=== PATIENT | male | born 1985 | race Hispanic/Latino ===

== ENCOUNTER 2021-07-03 14:23 | Emergency (ER) | payer OTHER ==
--- OUTSIDE RECORDS SUMMARY | 2021-07-03 14:27 | XMS REPORT | Continuity of Care Document ---
:1985 Author Organization [facility] t Address [address] [place] [address] Care Team Providers Name Role Phone Unavailable Unavailable Unavailable Payers Payer Name Policy Type Policy Number Effective Date Expiration Date S ource Problems This patient has no known problems. Allergies, Adverse Reactions, Alerts Allergy Allergy Status Severity Reaction(s) Onset Inactive Treating Comm ents Source Name Type Date Date Clinician No Known DA Active U 2016-07 [facility] Allergie 07-28 Clear s 00:00: Andre 00 [facility] Medications This patient has no known medications. Procedures This patient has no known procedures. Results Test Description Test Time Test Comments Results Result Comments Source SURGICAL SPECIMENS 2018-09-19 07:40:00 RUN DATE: 09/19/18 [place] [facility] *LIVE* PAGE 1 RUN TIME: 740 Specimen Inquiry RUN USER: INTERFACE PATIENT: VERÓNICA [facility]UNN [facility]: [id number] AGE/SX: 32/M ROOM: [facility] RE09/15/18REG DR: Keith Swann MD : 83 BED: 1 DIS: 09/16/18 STATUS: DIS IN TLOC: SPEC #: [id number] RECD: 09/15/18 STATUS: SOUAraceli REQ #: [id number] DONA: 09/15/[address] [facility] [address]: Keith Swann MD ENTERED: 09/18/18 SP TYPE: SURG SPEC OTHR DR: No Primary or Family Physician Self Referred Gale Dowling MDORDERED: LEVEL 4 CODES: [id number] - ESOPHAGUS, NOS COPIES TO: No Primary or Family Physician Self Referred Keith Swann MD [address] [place] [address] Gale Dowling MD [address] [place] [address] PROCEDURES: GM LEVEL 4 (Incomplete) TISSUES: 1. ESOPHAGUS, NOS - Esophagus, bx. FINAL DIAGNOSIS Esophagus, bx.: Eosinophilic esophagitis. GROSS AND MICROSCOPIC GROSS EXAMINATION: Received in formalin labeled esophagus biopsy are 2 james tissue fragments measuring up to 0.4 cm submitted in one cassette. MICROSCOPIC EXAMINATION: Sections of the esophagus biopsy reveal reactive squamous epithelium with elongation of the vascular papillae, thickened basal layer and acanthosis. There are abundant eosinophils present with up to 80 per high-power field identified. No fungal organisms identified with GMS staining. No intestinal metaplasia identified without seen blue-PAS staining. (When special stains have been reviewed, the appropriate positive/negative controls have been reviewed and are appropriately positive/negative). CONTINUED ON NEXT PAGE RUN DATE: 09/19/18 [facility] *LIVE* PAGE 2 RUN TIME: 740 Specimen Inquiry RUN USER: INTERFACE SPEC #: [id number] PATIENT: VERÓNICA NUNN #[id number] (Continued)--------- --- POST-OP DIAGNOSIS Esophagitis, supertial tear in the esophagus, R/O Flor, esosinophilic es PRE-OP DIAGNOSIS Hematemesis--------- --- Signed SIGNATURE ON FILE Joce Barbosa 09/19/18 0740 END OF REPORT BASIC METABOLIC PANEL 2018-09-16 08:40:00 Test Item Value Reference Range Interpretation Comme nts SODIUM (test code = NA) 141 mEq/L 134-147 N POTASSIUM (test code = K) 4.0 mEq/L 3.4-5.0 N CHLORIDE (test code = CL) 111 mEq/L 100-108 H CARBON DIOXIDE (test code = CO2) 24 mEq/L 21-33 N ANION GAP (test code = GAP) 10 0-20 N GLUCOSE (test code = GLU) 80 mg/dL 70-110 N BLOOD UREA NITROGEN (test code = 6 mg/dL 7-18 L BUN) GLOMERULAR FILTRATION RATE (test 129.9 105-110 H Units of measure = ml/min/1.73 code = GFR) m2 CREATININE (test code = CREAT) 0.7 mg/dL 0.6-1.3 N CALCIUM (test code = CA) 9.1 mg/dL 8.0-10.5 N CBC W/AUTO [id number] 08:20:00 Test Item Value Reference Range Interpretation Comments WHITE BLOOD CELL (test code = 4.89 x10 3/uL 4.5-11.0 N WBC) RED BLOOD CELL (test code = 4.49 x10 6/uL 4.00-5.60 N RBC) HEMOGLOBIN (test code = HGB) 13.9 g/dL 12.5-16.9 N HEMATOCRIT (test code = HCT) 41.6 % 37.5-50.7 N MEAN CELL VOLUME (test code = 92.7 fL 81.0-99.0 N MCV) MEAN CELL HGB (test code = MCH) 31.0 pg 27.0-33.0 N MEAN CELL HGB CONCETRATION 33.4 g/dL 33.0-37.0 N (test code = MCHC) RED CELL DISTRIBUTION WIDTH CV 12.2 % 11.5-14.5 N (test code = RDW) RED CELL DISTRIBUTION WIDTH SD 42.2 fL 37.0-54.0 N (test code = RDW-SD) PLATELET COUNT (test code = 276 x10 3/uL 150-400 N PLT) MEAN PLATELET VOLUME (test code 10.0 fL 7.0-9.0 H = MPV) NEUTROPHIL % (test code = NT%) 55.6 % 56.0-77.0 L IMMATURE GRANULOCYTE % (test 0.2 % 0.0-2.0 N code = IG%) LYMPHOCYTE % (test code = LY%) 28.2 % 14.0-32.0 N MONOCYTE % (test code = MO%) 7.4 % 4.8-9.0 N EOSINOPHIL % (test code = EO%) 8.0 % 0.3-3.7 H BASOPHIL % (test code = BA%) 0.6 % 0.0-2.0 N NUCLEATED RBC % (test code = 0.0 % 0-0 N NRBC%) NEUTROPHIL # (test code = NT#) 2.72 x10 3/uL 2.0-7.6 N IMMATURE GRANULOCYTE # (test 0.01 x10 3/uL 0.00-0.03 N code = IG#) LYMPHOCYTE # (test code = LY#) 1.38 x10 3/uL 1.0-3.8 N MONOCYTE # (test code = MO#) 0.36 x10 3/uL 0.1-0.8 N EOSINOPHIL # (test code = EO#) 0.39 x10 3/uL 0.0-0.2 H BASOPHIL # (test code = BA#) 0.03 x10 3/uL 0.0-0.2 N NUCLEATED RBC # (test code = 0.00 x10 3/uL 0.0-0.1 N NRBC#) MANUAL DIFF REQUIRED (test code NO = MDIFF) CBC W/AUTO [id number] 22:25:00 Test Item Value Reference Range Interpretation Comments WHITE BLOOD CELL (test code = 6.48 x10 3/uL 4.5-11.0 N WBC) RED BLOOD CELL (test code = 4.09 x10 6/uL 4.00-5.60 N RBC) HEMOGLOBIN (test code = HGB) 12.5 g/dL 12.5-16.9 N HEMATOCRIT (test code = HCT) 37.5 % 37.5-50.7 N MEAN CELL VOLUME (test code = 91.7 fL 81.0-99.0 N MCV) MEAN CELL HGB (test code = MCH) 30.6 pg 27.0-33.0 N MEAN CELL HGB CONCETRATION 33.3 g/dL 33.0-37.0 N (test code = MCHC) RED CELL DISTRIBUTION WIDTH CV 12.3 % 11.5-14.5 N (test code = RDW) RED CELL DISTRIBUTION WIDTH SD 41.4 fL 37.0-54.0 N (test code = RDW-SD) PLATELET COUNT (test code = 257 x10 3/uL 150-400 N PLT) MEAN PLATELET VOLUME (test code 9.5 fL 7.0-9.0 H = MPV) NEUTROPHIL % (test code = NT%) 55.8 % 56.0-77.0 L IMMATURE GRANULOCYTE % (test 0.2 % 0.0-2.0 N code = IG%) LYMPHOCYTE % (test code = LY%) 29.5 % 14.0-32.0 N MONOCYTE % (test code = MO%) 8.0 % 4.8-9.0 N EOSINOPHIL % (test code = EO%) 6.0 % 0.3-3.7 H BASOPHIL % (test code = BA%) 0.5 % 0.0-2.0 N NUCLEATED RBC % (test code = 0.0 % 0-0 N NRBC%) NEUTROPHIL # (test code = NT#) 3.62 x10 3/uL 2.0-7.6 N IMMATURE GRANULOCYTE # (test 0.01 x10 3/uL 0.00-0.03 N code = IG#) LYMPHOCYTE # (test code = LY#) 1.91 x10 3/uL 1.0-3.8 N MONOCYTE # (test code = MO#) 0.52 x10 3/uL 0.1-0.8 N EOSINOPHIL # (test code = EO#) 0.39 x10 3/uL 0.0-0.2 H BASOPHIL # (test code = BA#) 0.03 x10 3/uL 0.0-0.2 N NUCLEATED RBC # (test code = 0.00 x10 3/uL 0.0-0.1 N NRBC#) MANUAL DIFF REQUIRED (test code NO = MDIFF) CBC W/AUTO [id number] 12:50:00 Test Item Value Reference Range Interpretation Comments WHITE BLOOD CELL (test code = 8.81 x10 3/uL 4.5-11.0 N WBC) RED BLOOD CELL (test code = 4.17 x10 6/uL 4.00-5.60 N RBC) HEMOGLOBIN (test code = HGB) 13.0 g/dL 12.5-16.9 N HEMATOCRIT (test code = HCT) 38.9 % 37.5-50.7 N MEAN CELL VOLUME (test code = 93.3 fL 81.0-99.0 N MCV) MEAN CELL HGB (test code = MCH) 31.2 pg 27.0-33.0 N MEAN CELL HGB CONCETRATION 33.4 g/dL 33.0-37.0 N (test code = MCHC) RED CELL DISTRIBUTION WIDTH CV 12.5 % 11.5-14.5 N (test code = RDW) RED CELL DISTRIBUTION WIDTH SD 42.9 fL 37.0-54.0 N (test code = RDW-SD) PLATELET COUNT (test code = 250 x10 3/uL 150-400 N PLT) MEAN PLATELET VOLUME (test code 9.5 fL 7.0-9.0 H = MPV) NEUTROPHIL % (test code = NT%) 68.1 % 56.0-77.0 N IMMATURE GRANULOCYTE % (test 0.2 % 0.0-2.0 N code = IG%) LYMPHOCYTE % (test code = LY%) 20.3 % 14.0-32.0 N MONOCYTE % (test code = MO%) 7.5 % 4.8-9.0 N EOSINOPHIL % (test code = EO%) 3.6 % 0.3-3.7 N BASOPHIL % (test code = BA%) 0.3 % 0.0-2.0 N NUCLEATED RBC % (test code = 0.0 % 0-0 N NRBC%) NEUTROPHIL # (test code = NT#) 5.99 x10 3/uL 2.0-7.6 N IMMATURE GRANULOCYTE # (test 0.02 x10 3/uL 0.00-0.03 N code = IG#) LYMPHOCYTE # (test code = LY#) 1.79 x10 3/uL 1.0-3.8 N MONOCYTE # (test code = MO#) 0.66 x10 3/uL 0.1-0.8 N EOSINOPHIL # (test code = EO#) 0.32 x10 3/uL 0.0-0.2 H BASOPHIL # (test code = BA#) 0.03 x10 3/uL 0.0-0.2 N NUCLEATED RBC # (test code = 0.00 x10 3/uL 0.0-0.1 N NRBC#) MANUAL DIFF REQUIRED (test code NO = MDIFF) CBC W/AUTO [id number] 07:24:00 Test Item Value Reference Range Interpretation Comments WHITE BLOOD CELL (test code = 11.95 x10 3/uL 4.5-11.0 H WBC) RED BLOOD CELL (test code = 4.78 x10 6/uL 4.00-5.60 N RBC) HEMOGLOBIN (test code = HGB) 14.5 g/dL 12.5-16.9 N HEMATOCRIT (test code = HCT) 44.5 % 37.5-50.7 N MEAN CELL VOLUME (test code = 93.1 fL 81.0-99.0 N MCV) MEAN CELL HGB (test code = 30.3 pg 27.0-33.0 N MCH) MEAN CELL HGB CONCETRATION 32.6 g/dL 33.0-37.0 L (test code = MCHC) RED CELL DISTRIBUTION WIDTH CV 12.3 % 11.5-14.5 N (test code = RDW) RED CELL DISTRIBUTION WIDTH SD 42.7 fL 37.0-54.0 N (test code = RDW-SD) PLATELET COUNT (test code = 299 x10 3/uL 150-400 N PLT) MEAN PLATELET VOLUME (test 10.2 fL 7.0-9.0 H code = MPV) NEUTROPHIL % (test code = NT%) 81.8 % 56.0-77.0 H IMMATURE GRANULOCYTE % (test 0.3 % 0.0-2.0 N code = IG%) LYMPHOCYTE % (test code = LY%) 9.8 % 14.0-32.0 L MONOCYTE % (test code = MO%) 6.4 % 4.8-9.0 N EOSINOPHIL % (test code = EO%) 1.4 % 0.3-3.7 N BASOPHIL % (test code = BA%) 0.3 % 0.0-2.0 N NUCLEATED RBC % (test code = 0.0 % 0-0 N NRBC%) NEUTROPHIL # (test code = NT#) 9.76 x10 3/uL 2.0-7.6 H IMMATURE GRANULOCYTE # (test 0.04 x10 3/uL 0.00-0.03 H code = IG#) LYMPHOCYTE # (test code = LY#) 1.17 x10 3/uL 1.0-3.8 N MONOCYTE # (test code = MO#) 0.77 x10 3/uL 0.1-0.8 N EOSINOPHIL # (test code = EO#) 0.17 x10 3/uL 0.0-0.2 N BASOPHIL # (test code = BA#) 0.04 x10 3/uL 0.0-0.2 N NUCLEATED RBC # (test code = 0.00 x10 3/uL 0.0-0.1 N NRBC#) MANUAL DIFF REQUIRED (test NO code = MDIFF) PROTHROMBIN [id number] 00:10:00 Test Item Value Reference Range Interpretation Comments PROTHROMBIN TIME 14.0 SECONDS 9.3-12.9 H PATIENT (test code = PTP) INTERNATIONAL NORMAL 1.2 0.8-1.2 N TARGET RATIO (test code = INR BY IN DICATION INR) Indication INR1. Prophyl axis of venous thrombos is 2.0 - 3. 0 (orthopedic brittnee alysha), Prophylaxis of venous thrombos is (other than hig h-risk surgery), Claire tment of Deep Vein Thrombosis/Pulm onary Embolism, Preve ntion of systemic emb olism - Tissue heart va lves, Acute Myocardia l Infarction (to prevent systemic embo lism), Valvular heart disease, Atri al Fibrillation, Bileaflet mecha nical valve in aortic position.2. Mec hanical prosthetic valv es (high risk), 2.5 - 3.5 Presence of Lupus Anticoagu lant or Antiphospholi pid Antibodies, Pre vention of systemic e mbolism - Acute Myocard ial Infarction (t o prevent recurre nt infarct). CBC W/AUTO [id number] 00:03:00 Test Item Value Reference Range Interpretation Comments WHITE BLOOD CELL (test code = 13.85 x10 3/uL 4.5-11.0 H WBC) RED BLOOD CELL (test code = 4.91 x10 6/uL 4.00-5.60 N RBC) HEMOGLOBIN (test code = HGB) 15.1 g/dL 12.5-16.9 N HEMATOCRIT (test code = HCT) 44.9 % 37.5-50.7 N MEAN CELL VOLUME (test code = 91.4 fL 81.0-99.0 N MCV) MEAN CELL HGB (test code = 30.8 pg 27.0-33.0 N MCH) MEAN CELL HGB CONCETRATION 33.6 g/dL 33.0-37.0 N (test code = MCHC) RED CELL DISTRIBUTION WIDTH CV 12.3 % 11.5-14.5 N (test code = RDW) RED CELL DISTRIBUTION WIDTH SD 41.3 fL 37.0-54.0 N (test code = RDW-SD) PLATELET COUNT (test code = 311 x10 3/uL 150-400 N PLT) MEAN PLATELET VOLUME (test 9.9 fL 7.0-9.0 H code = MPV) NEUTROPHIL % (test code = NT%) 84.8 % 56.0-77.0 H IMMATURE GRANULOCYTE % (test 0.4 % 0.0-2.0 N code = IG%) LYMPHOCYTE % (test code = LY%) 8.4 % 14.0-32.0 L MONOCYTE % (test code = MO%) 5.3 % 4.8-9.0 N EOSINOPHIL % (test code = EO%) 0.6 % 0.3-3.7 N BASOPHIL % (test code = BA%) 0.5 % 0.0-2.0 N NUCLEATED RBC % (test code = 0.0 % 0-0 N NRBC%) NEUTROPHIL # (test code = NT#) 11.74 x10 3/uL 2.0-7.6 H IMMATURE GRANULOCYTE # (test 0.05 x10 3/uL 0.00-0.03 H code = IG#) LYMPHOCYTE # (test code = LY#) 1.17 x10 3/uL 1.0-3.8 N MONOCYTE # (test code = MO#) 0.74 x10 3/uL 0.1-0.8 N EOSINOPHIL # (test code = EO#) 0.08 x10 3/uL 0.0-0.2 N BASOPHIL # (test code = BA#) 0.07 x10 3/uL 0.0-0.2 N NUCLEATED RBC # (test code = 0.00 x10 3/uL 0.0-0.1 N NRBC#) MANUAL DIFF REQUIRED (test NO code = MDIFF) PROTHROMBIN [id number] 18:57:00 Test Item Value Reference Range Interpretation Comments PT PATIENT (test code = PTP) 13.1 SECONDS 9.3-12.9 H INTERNATIONAL NORMAL RATIO 1.14 INR Unit 0.8-1.2 N (test code = INR) URINALYSIS [id number] 18:56:00 Test Item Value Reference Range Interpretation Comments UA COLOR (test code = COLU) YELLOW discript YEL/STRAW UA APPEARANCE (test code = CLEAR discript CLEAR APPU) UA GLUCOSE DIPSTICK (test NEGATIVE mg/dL NEG code = DGLUU) UA BILIRUBIN DIPSTICK (test NEGATIVE mg/dL NEG code = BILU) UA KETONE DIPSTICK (test NEGATIVE mg/dL NEG code = KETU) UA SPECIFIC GRAVITY (test <=1.005 SG 1.005-1.030 code = SGU) UA BLOOD DIPSTICK (test NEGATIVE mg/DL NEG code = LUIZ) UA PH DIPSTICK (test code = 7.5 pH UNITS 5.0-7.0 A ORIANA) UA PROTEIN DIPSTICK (test NEGATIVE mg/dL NEG code = PROU) UA UROBILINIOGEN DIPSTICK 0.2 mg/dL <2.0 (test code = URO) UA NITRITE DIPSTICK (test NEGATIVE SCREEN NEG code = BRITTANY) UA LEUKOCYTE ESTERASE NEGATIVE Leuk/mcL NEGATIVE DIPSTICK (test code = LEUU) - CT ABD PELVIS [id number] 16:49:00 Name: VERÓNICA NUNN Formerly [facility] : 1985 Age/S: 32 / M [id number] [place] Unit #: [id number] Loc: [place] [address] Phys: Ivette Choudhary MD Acct: [id number] Dis Date: Status: REG ER PHONE #: [phone] Exam Date: 09/14/2018 1635 FAX #: Reason: abd pain unable to give further info 2/2 mr EXAMS: CPT: [id number] CT ABD PELVIS W/CONT 33385 EXAMINATION: - CT ABD PELVIS W/CONT. LOCATION: T18. HISTORY: Abdominal pain, vomiting blood. COMPARISON: CT abdomen/pelvis 05/15/2015. TECHNIQUE: CT imaging was performed of abdomen and pelvis after intravenous administration of 98 cc of Isovue-300. Oral contrast material was not administered. One or more the following dose reduction techniques were used: Automated exposure control, adjustment of mA and/or kV according to patient size, and use of iterative reconstruction technique. FINDINGS: Examination is limited due to lack of oral contrast. Visualized lung bases demonstrate dependent changes. Liver, gallbladder, spleen, pancreas, adrenals and kidneys appear unremarkable. No hydronephrosis. Underdistended urinary bladder. The bowel loops appear normal in course and caliber. No bowel obstruction. Moderate stool throughout colon. Unremarkable appendix. Distention of distal esophagus with wall thickening, distal esophagus contains fluid within it with surrounding fat stranding. No abdominal or pelvic bulky lymphadenopathy is identified. No pneumoperitoneum or free fluid. Visualized osseous structures demonstrate mild degenerative changes. Schmorl's node along the inferior endplate of L3. IMPRESSION: Distended distal esophagus with wall thickening and surrounding stranding, esophagus containing fluid within it. Consider correlation with EGDgiven provided clinical history. at 1649 Reported and signed by: Braxton Langford M.D. PAGE 1 Signed Report (CONTINUED) Name: VERÓNICA NUNN Formerly [facility] : Age/S: 32 / M [address] Unit #: [id number] Loc: [place] [address] Phys: Ivette Choudhary MD Acct: [id number] Dis Date: Status: REG ER PHONE #: [phone] Exam Date: 09/14/2018 1635 FAX #: Reason: abd pain unable to give further info 2/2 mr EXAMS: CPT: [id number] CT ABD PELVIS W/CONT [id number] <Continued> CC: Ivette Choudhary MD Technologist:Mariely Brar, RT(R)(CT) CTDI: DLP: Trnscb Date/Time: 09/14/2018 ([email or web address] Orig Print D/T: S: 09/14/2018 (3516) CTDI: DLP: PAGE 2 Signed ReportBASIC METABOLIC [id number] 16:06:00 Test Item Value Reference Range Interpretation Comments SODIUM (test code = NA) 140 mmol/L 134-147 N POTASSIUM (test code = 3.8 mmol/L 3.4-5.0 N K) CHLORIDE (test code = 105 mmol/L 100-108 N CL) CARBON DIOXIDE (test 29 mmol/L 21-32 N code = CO2) ANION GAP (test code = 6.0 GAP calc 4.0-15.0 N GAP) GLUCOSE (test code = 106 MG/DL 70-110 N GLU) BLOOD UREA NITROGEN 9 MG/DL 7-18 N (test code = BUN) GLOMERULAR FILTRATION >=60 max estimate >60 RATE (test code = GFR) estGFR CREATININE (test code = 0.9 MG/DL 0.8-1.3 N CREAT) CALCIUM (test code = CA) 9.7 MG/DL 8.5-10.1 N HEPATIC FUNCTION [id number] 16:06:00 Test Item Value Reference Range Interpretation Comments TOTAL PROTEIN (test code = PROT) 8.0 G/DL 6.4-8.2 N ALBUMIN (test code = ALB) 4.1 G/DL 3.4-5.0 N BILIRUBIN TOTAL (test code = BILT) 0.40 MG/DL 0.2-1.2 N BILIRUBIN DIRECT (test code = 0.10 MG/DL 0.00-0.30 N BILD) BILIRUBIN INDIRECT (test code = 0.30 MG/DL 0.2-1.2 N BILIND) SGOT/AST (test code = AST) 13 Unit/L 15-37 L SGPT/ALT (test code = ALT) 19 Unit/L 12-78 N ALKALINE PHOSPHATASE TOTAL (test 89 Unit/L 50-136 N code = ALKP) [id number] 16:06:00 Test Item Value Reference Range Interpretation Comments LIPASE (test code = LIP) 173 Unit/L 114-286 N BASIC METABOLIC [id number] 15:56:00 Test Item Value Reference Range Interpretation Comments SODIUM (test code = NA) 140 mmol/L 134-147 N POTASSIUM (test code = K) 3.8 mmol/L 3.4-5.0 N CHLORIDE (test code = CL) 105 mmol/L 100-108 N CARBON DIOXIDE (test code = CO2) 29 mmol/L 21-32 N ANION GAP (test code = GAP) 6.0 GAP calc 4.0-15.0 N GLUCOSE (test code = GLU) 106 MG/DL 70-110 N BLOOD UREA NITROGEN (test code = 9 MG/DL 7-18 N BUN) GLOMERULAR FILTRATION RATE (test estGFR >60 code = GFR) CREATININE (test code = CREAT) MG/DL 0.8-1.3 CALCIUM (test code = CA) 9.7 MG/DL 8.5-10.1 N HEPATIC FUNCTION [id number] 15:56:00 Test Item Value Reference Range Interpretation Comments TOTAL PROTEIN (test code = PROT) G/DL 6.4-8.2 ALBUMIN (test code = ALB) G/DL 3.4-5.0 BILIRUBIN TOTAL (test code = BILT) MG/DL 0.2-1.2 BILIRUBIN DIRECT (test code = BILD) MG/DL 0.00-0.30 BILIRUBIN INDIRECT (test code = MG/DL 0.2-1.2 BILIND) SGOT/AST (test code = AST) Unit/L 15-37 SGPT/ALT (test code = ALT) Unit/L 12-78 ALKALINE PHOSPHATASE TOTAL (test code Unit/L 50-136 = ALKP) [id number] 15:56:00 Test Item Value Reference Range Interpretation Comments LIPASE (test code = LIP) 173 Unit/L 114-286 N CBC W/AUTO [id number] 15:47:00 Test Item Value Reference Range Interpretation Comments WHITE BLOOD CELL (test code = 12.2 K/mm3 3.5-11.0 H WBC) RED BLOOD CELL (test code = RBC) 5.10 M/mm3 4.70-6.10 N HEMOGLOBIN (test code = HGB) 15.2 G/DL 12.3-15.9 N HEMATOCRIT (test code = HCT) 44.8 % 35.8-46.7 N MEAN CELL VOLUME (test code = 87.8 Fl 86.3-98.9 N MCV) MEAN CELL HGB (test code = MCH) 29.8 pg 28.9-34.4 N MEAN CELL HGB CONCETRATION (test 33.9 G/DL 32.1-34.5 N code = MCHC) RED CELL DISTRIBUTION WIDTH (test 12.8 SD 11.5-14.5 N code = RDW) PLATELET COUNT (test code = PLT) 316.0 K/mm3 150-450 N MEAN PLATELET VOLUME (test code = 9.20 fL 7.0-9.6 N MPV) NEUTROPHIL % (test code = NT%) 87.0 % 40-76 H LYMPHOCYTE % (test code = LY%) 6.4 % 20.5-51.1 L MONOCYTE % (test code = MO%) 5.3 % 1.7-9.3 N EOSINOPHIL % (test code = EO%) 1.1 % 0.0-6.0 N BASOPHIL % (test code = BA%) 0.2 % 0.0-2.0 N NEUTROPHIL # (test code = NT#) 10.61 K/mm3 1.8-7.6 H LYMPHOCYTE # (test code = LY#) 0.8 K/mm3 0.6-3.0 N MONOCYTE # (test code = MO#) 0.7 K/mm3 0.2-1.5 N EOSINOPHIL # (test code = EO#) 0.1 K/mm3 0.0-0.4 N BASOPHIL # (test code = BA#) 0.0 K/mm3 0.0-0.2 N MANUAL DIFF REQUIRED (test code = NO DIFF/SCN CRITERIA MDIFF)
[2021-07-03 14:39] LABS: Arterial Blood Carboxyhemoglob 0.8 % (0-1.5); Blood O2 Saturation 95.9 % (92-98.5)
[2021-07-03 14:58] LABS: Absolute Lymphocytes (CBC) 1.1 K/uL (0.7-4.9); Hematocrit 34.7 % (39.6-49.0); Lymphocytes % 26.7 % (15.3-44.8); MPV 7.7 fL (7.6-11.3); RBC Red Blood Cell Count 3.85 M/uL (4.33-5.43)
[2021-07-03 15:02] LABS: Protime INR 1.08
[2021-07-03 15:38] LABS: ALT/SGPT 27 U/L (12-78); AST/SGOT 16 U/L (15-37); Alkaline Phosphatase 88 U/L (45-117); BUN Blood Urea Nitrogen 6 mg/dL (7-18); Bicarbonate 26 mmol/L (21-32); Bilirubin Direct < 0.1 mg/dL (0-0.2); Bilirubin Total 0.2 mg/dL (0.2-1.0); Glucose Level 80 mg/dL (74-106); Potassium 3.3 mmol/L (3.5-5.1); Sodium Level 139 mmol/L (136-145)
[2021-07-03 15:46] LABS: Lithium 0.9 mmol/L (0.6-1.2)
[2021-07-03 16:12] LABS: Salicylates Level < 1.7 mg/dL (2.8-20)
--- NOTE | 2021-07-03 22:06 | ER ---
Nurse's Notes 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 Pt minimally responsive to painful stimuli. Coronavirus screen: At this time, the client does not indicate any symptoms associated with coronavirus-19. Ebola Screen: No symptoms or risks identified at this time. Initial Sepsis Screen: Does the patient meet any 2 criteria? No. Patient's initial sepsis screen is negative. Does the patient have a suspected source of infection? No. Patient's initial sepsis screen is negative. Risk Assessment: Do you want to hurt yourself or someone else? Patient reports no desire to harm self or others. Onset of symptoms was July 03, 2021. Care prior to arrival: None. Transition of care: patient was not received from another setting of care. 14:31 Method Of Arrival: EMS: [facility] jl7 14:31 Acuity: ELROY 1 jl7 Triage Assessment: 14:36 General: Appears distressed, slender, Behavior is pt lethargic, minimally responsive to jl7 painful stimuli. Pain: Unable to use pain scale. Patient is unresponsive. Neuro: Level of Consciousness is lethargic, Oriented to none. Cardiovascular: Patient's skin is warm and dry. Rhythm is regular. Respiratory: Airway is patent Respiratory effort is even, unlabored, shallow, Respiratory pattern is symmetrical, hypoventilation. Derm: Skin is pink, warm \T\ dry. Historical: - Allergies: 14:36 No Known Allergies; jl7 - Home Meds: 14:36 Haloperidol Oral [Active]; Amitriptyline Oral [Active]; [place] Carbonate Oral jl7 [Active]; olanzapine oral [Active]; Propranolol Oral [Active]; - PMHx: 14:36 ADHD; Bipolar disorder; MR; jl7 - Immunization history:: Client reports receiving the 2nd dose of the Covid vaccine. - Social history:: Smoking status: Patient denies any tobacco usage or history of. - Family history:: not pertinent. - Hospitalizations: : No recent hospitalization is reported. Screenin:45 Abuse screen: Denies threats or abuse. Denies injuries from another. Nutritional jl7 screening: No deficits noted. Tuberculosis screening: No symptoms or risk factors identified. 19:20 Fall Risk Secondary diagnosis (15 points) impaired mobility, IV access (20 points). mr2 Mental Status- Overestimates/Forgets Limitations (15 pts.). Assessment: 14:45 Reassessment: Poison control contacted, reports watch for GI Bleed and blood sugar, jl7 check tox labs and protect airway. 15:30 Reassessment: Nasal trumpet inserted to right nare. jl7 16:00 Reassessment: Patient appears in no apparent distress at this time. Patient and/or jl7 family updated on plan of care and expected duration. Pain level reassessed. Pt laying in bed with eyes closed, repirations even and unlabored, foster dad at bedside. 17:00 Reassessment: Patient appears in no apparent distress at this time. No changes from jl7 previously documented assessment. Patient and/or family updated on plan of care and expected duration. Pain level reassessed. 18:00 Reassessment: Patient appears in no apparent distress at this time. No changes from jl7 previously documented assessment. Patient and/or family updated on plan of care and expected duration. Pain level reassessed. Vital Signs: 14:31 BP 99 / 67; Pulse 67; Resp 9; Pulse Ox 100% on R/A; Weight 54.43 kg; Height 5 ft. 6 in. jl7 (167.64 cm); 17:00 BP 107 / 65; Pulse 67; Resp 13; Temp 97.9; Pulse Ox 100% ; jl7 14:31 Body Mass Index 19.37 (54.43 kg, 167.64 cm) jl7 ED Course: 14:30 Patient arrived in ED. rn 14:30 Dani Hodge MD is Attending Physician. rn 14:31 Vasquez Amanda RN is Primary Nurse. jl7 14:36 Triage completed. jl7 14:36 Arm band placed on right wrist. jl7 14:45 Patient has correct armband on for positive identification. Bed in low position. Call 7 light in reach. Side rails up X2. Adult w/ patient. shelter monitor on. Pulse ox on. NIBP on. 14:45 Initial lab(s) drawn, by ED staff, sent to lab. EKG done, by ED staff, reviewed by olga Hodge MD. Maintain EMS IV. Dressing intact. Good blood return noted. Site clean \T\ dry. Gauge \T\ site: 18 left AC. 19:04 Attending Physician role handed off by Dani Hodge MD [facility] 19:04 Stef Mora MD is Attending Physician. 7 22:55 No provider procedures requiring assistance completed. IV discontinued. mr2 Administered Medications: 19:34 Drug: NS 0.9% 1000 ml Route: IV; Rate: 1000 ml; Site: left antecubital; mr2 Outcome: 22:06 Discharge ordered by . [facility] 22:55 Discharged to home via wheelchair, with family. mr2 22:55 Condition: stable 22:55 Discharge instructions given to family. 22:56 Patient left the ED. mr2 Signatures: Dani Hodge MD MD rn Leal, Jahala, RN RN [facility] Stef Mora MD MD [facility] Yoel Chang, GILLIAN RN mr2 Corrections: (The following items were deleted from the chart) 14:41 14:36 Home Meds: Amitriptyline Oral; olga jlYari
--- NOTE | 2021-07-03 22:06 | EDPHYS ---
Physician Documentation [facility] Name: Alexy Mock Age: 35 yrs Sex: Male : 1985 Arrival Date: 07/03/2021 Time: 14:30 Bed 2 Private MD: ED Physician Stef Mora HPI: 07/03 14:43 This 35 yrs old Male presents to ER via EMS with complaints of Ingestion of rn hand loan coordinator. 14:43 The patient presents to the emergency department after a known overdose, that was rn accidental. Context: Method: the patient has a confirmed or suspected ingestion, Time: 45 minute(s) ago, Extent: Ingested bottle of hand loan coordinator, the OD/poisoning occurred at at home, and was witnessed Caregiver. Associated signs and symptoms: Pertinent positives: decreased level of consciousness. Severity of symptoms: At their worst the symptoms were moderate in the emergency department the symptoms are unchanged. The patient has not experienced similar symptoms in the past. The patient has not recently seen a physician. EMS reports patient was at home, went to another room and returned with an empty bottle of hand loan coordinator. Caregiver states came out of room seeming woozy and thinks that patient mistook the bottle for a bottle of water. EMS reports decreased level of consciousness, but no seizure. They state his end-tidal CO2 is good, oxygenation good, blood pressure borderline. Fluids started.. Historical: - Allergies: 14:36 No Known Allergies; jl7 - Home Meds: 14:36 Haloperidol Oral [Active]; Amitriptyline Oral [Active]; [place] Carbonate Oral jl7 [Active]; olanzapine oral [Active]; Propranolol Oral [Active]; - PMHx: 14:36 ADHD; Bipolar disorder; MR; jl7 - Immunization history:: Client reports receiving the 2nd dose of the Covid vaccine. - Social history:: Smoking status: Patient denies any tobacco usage or history of. - Family history:: not pertinent. - Hospitalizations: : No recent hospitalization is reported. ROS: 14:43 Unable to obtain ROS due to altered mental status. rn Exam: 14:43 Constitutional: Thin male, heavily sedated, breathing spontaneously without sonorous rn respirations Head/Face: Normocephalic, atraumatic. Eyes: Periorbital areas with no swelling, redness, or edema. Cardiovascular: Regular rate and rhythm. No pulse deficits. Respiratory: Spontaneous respirations at a rate of 10 without support. Abdomen/GI: Soft, non-tender, nondistended Skin: Warm, dry, no cyanosis MS/ Extremity: Pulses equal, no cyanosis. Neurovascular intact. Full, normal range of motion. Equal circumference. Neuro: Moderately sedated but breathing spontaneously had a rate of 10, responds to painful stimuli Vital Signs: 14:31 BP 99 / 67; Pulse 67; Resp 9; Pulse Ox 100% on R/A; Weight 54.43 kg; Height 5 ft. 6 in. 7 (167.64 cm); 17:00 BP 107 / 65; Pulse 67; Resp 13; Temp 97.9; Pulse Ox 100% ; 7 14:31 Body Mass Index 19.37 (54.43 kg, 167.64 cm) [facility] MDM: 14:30 Patient medically screened. rn 16:23 ED course: Pt much more alert, now turning in bed and actually seems a bit agitated rn when reevaluated. Will continue to observe in ER but anticipate dc home later. . 17:58 ED course: Pt still sedated and requires longer observation, is improved and protecting rn airway, no need for advanced airway at this point, anticipate dc home in care of foster caregiver in next few hours.. 22:03 Differential diagnosis: Ingestion/exposure to Alcohol over medication, hypoglycemia. [facility] Data reviewed: vital signs, nurses notes, lab test result(s), CBC, drug level(s), alcohol, electrolytes, EKG. Data interpreted: Pulse oximetry: on room air is 100 %. Interpretation: normal. Counseling: I had a detailed discussion with the patient and/or guardian regarding: the historical points, exam findings, and any diagnostic results supporting the discharge/admit diagnosis, lab results, the need for outpatient follow up, to return to the emergency department if symptoms worsen or persist or if there are any questions or concerns that arise at home. Response to treatment: the patient's symptoms have markedly improved after treatment. 07/03 14:31 Order name: Acetaminophen; Complete Time: 16:20 rn 07/03 14:31 Order name: Basic Metabolic Panel; Complete Time: 16:20 rn 07/03 14:31 Order name: CBC with Diff; Complete Time: 16:20 rn 07/03 14:31 Order name: ETOH Level; Complete Time: 16:20 rn 07/03 14:31 Order name: Hepatic Function; Complete Time: 16:20 rn 07/03 14:31 Order name: PT-INR; Complete Time: 16:20 rn 07/03 14:31 Order name: Ptt, Activated; Complete Time: 16:20 rn 07/03 14:31 Order name: Salicylate; Complete Time: 16:20 rn 07/03 14:31 Order name: EKG; Complete Time: 14:32 rn 07/03 14:31 Order name: Ketone, Serum; Complete Time: 16:20 rn 07/03 14:31 Order name: ABG; Complete Time: 16:20 rn 07/03 14:31 Order name: [place]; Complete Time: 16:20 rn 07/03 14:31 Order name: EKG - Nurse/Tech; Complete Time: 14:48 rn 07/03 14:31 Order name: IV Saline Lock; Complete Time: 14:48 rn 07/03 14:31 Order name: Labs collected and sent; Complete Time: 14:48 rn 07/03 14:31 Order name: Cardiac monitoring; Complete Time: 14:48 rn 07/03 14:31 Order name: Oxygen Per Protocol; Complete Time: 14:48 rn Administered Medications: 19:34 Drug: NS 0.9% 1000 ml Route: IV; Rate: 1000 ml; Site: left antecubital; mr2 Disposition Summary: 07/03/21 22:06 Discharge Ordered Location: Home [facility] Problem: [facility] Symptoms: have improved [facility] Condition: Stable [facility] Diagnosis - Alcohol use, unspecified with intoxication - Unintentional ingestion [facility] Followup: [facility] - With: Private Physician - When: 1 - 2 days - Reason: Worsening of condition, Recheck today's complaints, Continuance of care, Re-evaluation by your physician Discharge Instructions: - Discharge Summary Sheet [facility] - Alcohol Intoxication, [id number] [facility] - Nontoxic Ingestion, Adult [facility] Forms: - Medication Reconciliation Form [facility] - Thank You Letter 7 - Antibiotic Education [facility] - Prescription Opioid Use [facility] Signatures: Dispatcher [employer] EDDani Beckham MD MD rn Leal, Jahala, RN RN 7 Stef Mora MD MD mh7 Yoel Chang RN RN mr2 Corrections: (The following items were deleted from the chart) 14:41 14:36 Home Meds: Amitriptyline Oral; jl7 jl7
[2021-07-04 00:19] VITALS: O2SAT 100
[2021-07-04 00:21] VITALS: BP 107/65; TEMP 97.9
== END 2021-07-03 22:56 | disposition home or self-care (01) ==
LOC: ER 14:23
DX: T49.0X1A Poisoning by local antifungal, anti-infective and anti-inflammatory drugs, accidental (unintentional), initial encounter (principal); R40.4 Transient alteration of awareness; Y92.009 Unspecified place in unspecified non-institutional (private) residence as the place of occurrence of the external cause; F90.9 Attention-deficit hyperactivity disorder, unspecified type; F79 Unspecified intellectual disabilities
CPT/HCPCS: 36415; 80048; 80076; 80178; 80320; 80329; 82010; 82805; 85025; 85610; 85730; 93005; 99291; 99292

== ENCOUNTER 2022-03-09 11:56 | Inpatient (IN) | payer OTHER ==
--- OUTSIDE RECORDS SUMMARY | 2022-03-09 12:06 | XMS REPORT | Continuity of Care Document ---
:1985 Author Organization [facility] t Address [address] [place] [address] Care Team Providers Name Role Phone Asked, No Pcp Primary Care Physician Unavailable WANDA SHUKLA Attending Clinician Unavailable KAMILLE BETTENCOURT Attending Clinician Unavailable GC_BAHC_Vijay_Vishnu Attending Clinician Unavailable Damir Nieves Attending Clinician [phone] Mariela Linares Attending Clinician [phone] ISIDORO KUMAR Attending Clinician Unavailable Isidoro Kumar Attending Clinician ANNIE MOON Attending Clinician Unavailable ARVIND LOWE Attending Clinician Unavailable Arvind Lowe Attending Clinician Chris Vega Attending Clinician Ai BECKER, Modesto Cruz Attending Clinician [phone] MODESTO CLOUD Attending Clinician Unavailable Zain David Attending Clinician Unavailable Molina Hernández MD Attending Clinician Sarai BECKER, Annie Henley Attending Clinician Lion Parry MD, Kym Attending Clinician [phone] Richardson BECKER, Marla Polanco Attending Clinician Elida Peter MD Attending Clinician Seun Lucero, Malissa Martin Attending Clinician + [phone] ELIDA PETER Attending Clinician Unavailable KYM REA Attending Clinician Unavailable Wanda Shukla Attending Clinician Barrera Anderson MD Attending Clinician [phone] BARRERA ANDERSON Attending Clinician Unavailable Brii Campbell MD Attending Clinician BRII CAMPBELL Attending Clinician Unavailable Jazmin Ham Attending Clinician Handy Hammonds Attending Clinician Rony Penny Attending Clinician Annette Butler Attending Clinician Kingsley Barney Attending Clinician Vijay Combs Attending Clinician Alexis Shields Attending Clinician _STACI_Vijay_Vishnu Admitting Clinician Unavailable ISIDORO KUMAR Admitting Clinician Unavailable Isidoro Kumar Admitting Clinician ARVIND LOWE Admitting Clinician Unavailable Arvind Lowe Admitting Clinician Chris Vega Admitting Clinician Physician, No Primary or Family Admitting Clinician Unavaila MALISSA Telles Admitting Clinician Unavailable Handy Hammonds Kianna Admitting Clinician Annette Butler Admitting Clinician Vijay Combs Admitting Clinician Payers Payer Name Policy Type Policy Number Effective Date Expiration Date S [place] MEDICAID [id number] 2018 00:00:00 MEDICARE PART A & [id number] 2010 B 00:00:00 [place]: [id number] 2010 Branded Reality 00:00:00 [place] [id number] [place] [id number] MAO SSI [id number] 2018 RELATED 00:00:00 Problems Condition Condition Condition Status Onset Resolution Last Treating Co mments Source Name Details Category Date Date Treatment Clinician Date Constipati Constipati Disease Active [facility] on on 12-14 Health 00:00: 00 Urinary Urinary Disease Active [facility] retention retention 12-14 [facility] 00:00: 00 AMS AMS Disease Active [facility] (altered (altered 12-03 Health mental mental 00:00: status) status) 00 Head Head Disease Active [facility] trauma trauma 12-02 Health 00:00: 00 Facial Facial Disease Active [facility] Cauliflowe Cauliflowe Disease Active [facility] r ear, r ear, 5-25 [facility] right right [facility] Disorder Disorder Disease Active [facility] s of impulse of impulse 02-26 [facility] alth control control 00:00: 00 Mood Mood Disease Active [facility] disorder disorder 02-26 Health 00:00: 00 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 02-26 Health disorder disorder 00:00: 00 Intellectu Intellectu Disease Active [facility] al al 8-20 Health disability disability 00:00: 00 Bipolar Bipolar Disease Active [facility] disorder, disorder, 8- [facility]al th unspecifie unspecifie 00:00: d d 00 Psychotic 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 ris disorder disorder Health Elevated Elevated Disease Active [facility] lithium lithium Health level level Anemia Anemia Disease Active [facility] Weight Weight Disease Active [place] loss loss Health Agitation Agitation Disease Active [facility] Allergies, Adverse Reactions, Alerts Allergy Allergy Status Severity Reaction(s) Onset Inactive Treating Comm ents Source Name Type Date Date Clinician No Known DA Active U [facility] 01[facility]08 [facility] 00:[facility]: d 00 [facility] No Known DA Active U 2016-07 [facility] Allergie 1-25 [facility] 00:[facility]: d 00 [facility] No Known DA Active U 2016-07 [facility] Allergie 1-25 [facility] 00:00: Andre 00 [facility] NO KNOWN Allergy Active [facility] Social History Social Habit Start Date Stop Date Quantity Comments Source History [facility] Food [facility] Worry History SDUT Food 2021-12-23 2021-12-23 1 [facility] Scarcity 00:00:00 00:00:00 Tobacco use and 2021-12-23 2021-12-23 Smokeless tobacco [facility] exposure 00:00:00 00:00:00 non-user Alcohol intake 2021-12-23 2021-12-23 Lifetime [facility] 00:00:00 00:00:00 non-drinker (finding) Sex Ass[birth year] At [birth year] [facility] 00:00:00 00:00:00 Smoking Status Start Date Stop Date Source Tobacco smoking consumption unknown [facility] Never smoker [facility] Medications Ordered Filled Start Stop Current Ordering Indication Dosage Frequency Signature Comments Components Source Medication Medication Date Date Medication? Clinician (SIG) Name Name furosemide 2021- No 20mg QD Take [address] [facility] (LASIX) 20 7-12 07-12 tablet (20 [facility] MG tablet 00:00: 00:00 mg total) Me dical 00 :00 by mouth Center daily for 3 days. magnesium 2-0 2- No 296mL Take [address] citrate 7-12 07-12 mLs by [facility] solution 00:00: 00:00 mouth once Me dical 00 :00 for 1 Center dose. furosemide 2021-0 2- No 20mg QD Take [address] [facility] (LASIX) 20 7-12 07-12 tablet (20 [facility] MG tablet 00:00: 00:00 mg total) Me dical 00 :00 by mouth Center daily for 3 days. magnesium 2021-0 2- No 296mL Take [address] citrate 7-12 07-12 mLs by [facility] solution 00:00: 23:59 mouth once Me dical 00 :00 for 1 Center dose. furosemide 2021-0 2021- No 20mg QD Take [address] [facility] (LASIX) 20 7-12 07-12 tablet (20 [facility] MG tablet 00:00: 00:00 mg total) Me dical 00 :00 by mouth Center daily for 3 days. magnesium 2021-0 2- No 296mL Take [address] citrate 7-12 07-12 mLs by [facility] solution 00:00: 00:00 mouth once Me dical 00 :00 for 1 Center dose. furosemide 2021-0 2- No 20mg QD Take [address] [facility] (LASIX) 20 7-12 07-12 tablet (20 [facility] MG tablet 00:00: 00:00 mg total) Me dical 00 :00 by mouth Center daily for 3 days. magnesium 2021-0 2- No 296mL Take [address] citrate 7-12 07-12 mLs by [facility] solution 00:00: 23:59 mouth once Me dical 00 :00 for 1 Center dose. furosemide 2021-0 2- No 20mg QD Take [address] [facility] (LASIX) 20 7-12 07-12 tablet (20 [facility] k[facility] MG tablet 00:00: 00:00 mg total) Me dical 00 :00 by mouth Center daily for 3 days. magnesium 2-0 2- No 296mL Take [address] citrate 7-12 07-12 mLs by [facility] solution 00:00: 00:00 mouth once Me dical 00 :00 for 1 Center dose. furosemide 2022-0 2022- No 20mg QD Take [address] [facility] (LASIX) 20 7-12 07-12 tablet (20 [facility] MG tablet 00:00: 00:00 mg total) Me dical 00 :00 by mouth Center daily for 3 days. magnesium 2022-0 2022- No 296mL Take [address] citrate 7-12 07-12 mLs by [facility] solution 00:00: 23:59 mouth once Me dical 00 :00 for 1 Center dose. furosemide 2022-0 2022- No 20mg QD Take [address] [facility] (LASIX) 20 7-12 07-12 tablet (20 [facility] MG tablet 00:00: 00:00 mg total) Me dical 00 :00 by mouth Center daily for 3 days. magnesium 2022-0 2022- No 296mL Take [address] citrate 7-12 07-12 mLs by [facility] solution 00:00: 00:00 mouth once Me dical 00 :00 for 1 Center dose. furosemide 2022-0 2022- No 20mg QD Take [address] [facility] (LASIX) 20 7-12 07-12 tablet (20 [facility] MG tablet 00:00: 00:00 mg total) Me dical 00 :00 by mouth Center daily for 3 days. magnesium 2022-0 2022- No 296mL Take [address] citrate 7-12 07-12 mLs by [facility] solution 00:00: 23:59 mouth once Me dical 00 :00 for 1 Center dose. pantoprazol 2022-0 Yes 40mg QD Take [address] [facility] e 7-11 by mouth [facility] (PROTONIX) 00:00: daily. Medic al 40 MG 00 Center tablet pantoprazol 2022-0 Yes 40mg QD Take [address] [facility] e 7-11 by mouth [facility] (PROTONIX) 00:00: daily. Medic al 40 MG 00 Center tablet pantoprazol 2022-0 Yes 40mg QD Take [address] [facility] e 7-11 by mouth [facility] (PROTONIX) 00:00: daily. Medic al 40 MG 00 Center tablet pantoprazol 2022-0 Yes 40mg QD Take [address] [facility] e 7-11 by mouth [facility] (PROTONIX) 00:00: daily. Medic al 40 MG 00 Center tablet levETIRAcet 2021-0 Yes 500mg Q.5D Take [address] [facility] (KEPPRA) 6-23 mg by [facility] 500 MG 00:00: mouth 2 Medical tablet 00 (two) Center times daily. levETIRAcet 2021-0 Yes 500mg Q.5D Take [address] am (KEPPRA) 6-23 mg by [facility] 500 MG 00:00: mouth 2 Medical tablet 00 (two) Center times daily. levETIRAcet 2021-0 Yes 500mg Q.5D Take [address] am (KEPPRA) 6-23 mg by [facility] 500 MG 00:00: mouth 2 Medical tablet 00 (two) Center times daily. levETIRAcet 2021-0 Yes 500mg Q.5D Take [address] am (KEPPRA) 6-23 mg by [facility] 500 MG 00:00: mouth 2 Medical tablet 00 (two) Center times daily. tamsulosin 2021-2021- Yes .4mg Take 0.[address] [facility] [address] [facility] (FLOMAX) 6-15 09-13 mg by [facility] 0.4 mg Cap 00:00: 23:59 mouth. Medi jonatan 24 hr 00 :00 Center capsule tamsulosin 2021- Yes .4mg Take 0.[address] [facility] [address] [facility] (FLOMAX) 6-15 09-13 mg by [facility] 0.4 mg Cap 00:00: 23:59 mouth. Medi jonatan 24 hr 00 :00 Center capsule tamsulosin 2021- Yes .4mg Take 0.[address] [facility] [address] [facility] (FLOMAX) 6-15 09-13 mg by [facility] 0.4 mg Cap 00:00: 23:59 mouth. Medi jonatan 24 hr 00 :00 Center capsule tamsulosin 0 2021- Yes [facility] .4mg QD Take 1 [facility] (FLOMAX) 6-15 09-13 l capsule by Heal th 0.4 mg 00:00: 23:59 disability mouth capsule 00 :00 daily for 90 days. Start 12/16/21. haloperidoL 2021-0 2021- Yes [facility] 10mg QD Take 1 [facility] (HALDOL) 10 6-15 09-13 l tablet by He alth mg tablet 00:00: 23:59 disability mouth 00 :00 daily for 90 days. Start 12/16/21. tamsulosin 2021-2021- Yes [facility] .4mg QD Take 1 [facility] (FLOMAX) 6-15 09-[address] [facility] 0.4 mg 00:00: 23:59 disability mouth capsule 00 :00 daily for 90 days. Start 12/16/21. haloperidoL 2021-0 2021- Yes [facility] 10mg QD Take 1 [facility] (HALDOL) 10 6-15 09-13 l tablet by alth mg tablet 00:00: 23:59 disability mouth 00 :00 daily for 90 days. Start 12/16/21. tamsulosin 2021-2021- Yes [facility] .4mg QD Take 1 [facility] (FLOMAX) 6-15 09-[address] [facility] 0.4 mg 00:00: 23:59 disability mouth capsule 00 :00 daily for 90 days. Start 12/16/21. haloperidoL 2021-0 2021- Yes [facility] 10mg QD Take 1 [facility] (HALDOL) 10 6-15 09-13 l tablet by alth mg tablet 00:00: 23:59 disability mouth 00 :00 daily for 90 days. Start 12/16/21. tamsulosin 2021-0 2021- Yes .4mg Take 0.[address] [facility] [address] [facility] (FLOMAX) 6-15 09-13 mg by [facility] 0.4 mg Cap 00:00: 23:59 mouth. Medi jonatan 24 hr 00 :00 Center capsule tamsulosin 2021-0 2021- Yes [facility] .4mg QD Take 1 [facility] (FLOMAX) 6-15 09-[address] [facility] 0.4 mg 00:00: 23:59 disability mouth capsule 00 :00 daily for 90 days. Start 12/16/21. haloperidoL 2021-0 2021- Yes [facility] 10mg QD Take 1 [facility] (HALDOL) 10 6-15 09-13 l tablet by He alth mg tablet 00:00: 23:59 disability mouth 00 :00 daily for 90 days. Start 12/16/21. clonazePAM 2-0 Yes .25mg Take 0.[address] (KlonoPIN) 6-14 mg by [facility] 0.5 MG 00:00: mouth. Medical tablet 00 Center clonazePAM 2021-0 Yes .25mg Take 0.[address] (KlonoPIN) 6-14 mg by [facility] 0.5 MG 00:00: mouth. Medical tablet 00 Center clonazePAM 2022-0 Yes .25mg Take 0.[address] (KlonoPIN) 6-14 mg by [facility] 0.5 MG 00:00: mouth. Medical tablet 00 Center clonazePAM 2-0 Yes Bipolar 1 .25mg Q.5D Take 1/2 [facility] (KLONOPIN) 6-14 disorder (ONE-HALF) Health 0.5 mg 00:00: tablet by tablet 00 mouth 2 times daily clonazePAM 2022-0 Yes Bipolar 1 .25mg Q.5D Take 1/2 [facility] (KLONOPIN) 6-14 disorder (ONE-HALF) Health 0.5 mg 00:00: tablet by tablet 00 mouth 2 times daily clonazePAM 2022-0 Yes Bipolar 1 .25mg Q.5D Take 1/2 [facility] (KLONOPIN) 6-14 disorder (ONE-HALF) Health 0.5 mg 00:00: tablet by tablet 00 mouth 2 times daily clonazePAM 2-0 Yes .25mg Take 0.[address] (KlonoPIN) 6-14 mg by [facility] 0.5 MG 00:00: mouth. Medical tablet 00 Center clonazePAM 2021-0 Yes Bipolar 1 .25mg Q.5D Take 1/2 [facility] (KLONOPIN) 6-14 disorder (ONE-HALF) Health 0.5 mg 00:00: tablet by tablet 00 mouth 2 times daily cloNIDine 2021-2021- Yes .1mg Take 0.[address] [facility] HCL 6-14 09-12 mg by [facility] (CATAPRES) 00:00: 23:59 mouth. Medi jonatan 0.1 MG 00 :00 Center tablet senna-docus 2021- Yes 2{tbl} Take [address] ate 6-14 09-12 tablets by [facility] (SENOKOT S) 00:00: 23:59 mouth. Med ical 8.6-50 mg 00 :00 Center per tablet cloNIDine 2021-2021- Yes .1mg Take 0.[address] [facility] HCL 6-14 09-12 mg by [facility] (CATAPRES) 00:00: 23:59 mouth. Medi jonatan 0.1 MG 00 :00 Center tablet senna-docus 2021- Yes 2{tbl} Take [address] ate 6-14 09-12 tablets by [facility] (SENOKOT S) 00:00: 23:59 mouth. Med ical 8.6-50 mg 00 :00 Center per tablet cloNIDine 2021- Yes .1mg Take 0.[address] [facility] HCL 6-14 09-12 mg by [facility] (CATAPRES) 00:00: 23:59 mouth. Medi jonatan 0.1 MG 00 :00 Center tablet senna-docus 2021- Yes 2{tbl} Take [address] ate 6-14 09-12 tablets by [facility] (SENOKOT S) 00:00: 23:59 mouth. Med ical 8.6-50 mg 00 :00 Center per tablet sennosides- 2021- Yes [facility] 2{tbl} Q.5D Take 2 [facility] docusate 6-14 09-12 l tablets by Heal th sodium 00:00: 23:59 disability mouth 2 (SENNA 00 :00 (two) PLUS) times a 8.6-50 mg day for 90 tablet days mirtazapine 2021- Yes [facility] 15mg Take 1 [facility] (REMERON) 6-14 09-[address] [facility] 15 mg 00:00: 23:59 disability mouth at tablet 00 :00 bedtime nightly for 90 days lithium 2021- Yes [facility] 300mg Q.5D Take 1 [facility] carbonate 6-14 09-12 l capsule by [facility] (ESKALI) 00:00: 23:59 disability mouth 2 300 mg 00 :00 (two) capsule times a day for 90 days haloperidoL 2021- Yes [facility] 20mg Take 2 [facility] (HALDOL) 10 6-14 09-12 l tablets by ealth mg tablet 00:00: 23:59 disability mouth at 00 :00 bedtime nightly for 90 days cloNIDine 2021- Yes Intellectua .1mg Take 1 [facility] HCL 6-14 09-12 l tablet by [facility] (CATAPRES) 00:00: 23:59 disability mouth 0.1 mg 00 :00 every tablet evening amitriptyli 2021- Yes Intellect[facility] 10mg Take 1 [facility] ne (ELAVIL) 6-14 09-12 l tablet by [facility] 10 mg 00:00: 23:59 disability mouth at tablet 00 :00 bedtime nightly sennosides- 2021-2021- Yes Intellectua 2{tbl} Q.5D Take 2 [facility] docusate 6-14 09-[address] [facility] sodium 00:00: 23:59 disability mouth 2 (SENNA 00 :00 (two) PLUS) times a 8.6-50 mg day for 90 tablet days mirtazapine 2021- Yes [facility] 15mg Take 1 [facility] (REMERON) 6-14 09-[address] [facility] 15 mg 00:00: 23:59 disability mouth at tablet 00 :00 bedtime nightly for 90 days lithium 2021-2021- Yes [facility] 300mg Q.5D Take 1 [facility] carbonate 6-14 09-12 l capsule by [facility] (ESKALITH) 00:00: 23:59 disability mouth 2 300 mg 00 :00 (two) capsule times a day for 90 days haloperidoL 2021-2021- Yes Intellect[facility] 20mg Take 2 [facility] (HALDOL) 10 6-14 09-12 l tablets by ealth mg tablet 00:00: 23:59 disability mouth at 00 :00 bedtime nightly for 90 days cloNIDine 2021-2021- Yes Intellectua .1mg Take 1 [facility] HCL 6-14 09-12 l tablet by [facility] (CATAPRES) 00:00: 23:59 disability mouth 0.1 mg 00 :00 every tablet evening amitriptyli 2021- Yes [facility] 10mg Take 1 [facility] ne (ELAVIL) 6-14 09-12 l tablet by [facility] 10 mg 00:00: 23:59 disability mouth at tablet 00 :00 bedtime nightly sennosides- 2021-2021- Yes [facility] 2{tbl} Q.5D Take 2 [facility] docusate 6-14 09-12 l tablets by Heal th sodium 00:00: 23:59 disability mouth 2 (SENNA 00 :00 (two) PLUS) times a 8.6-50 mg day for 90 tablet days mirtazapine 2021-0 2021- Yes [facility] 15mg Take 1 [facility] (REMERON) 6-14 09-[address] [facility] 15 mg 00:00: 23:59 disability mouth at tablet 00 :00 bedtime nightly for 90 days lithium 2021-2021- Yes Intellectua 300mg Q.5D Take 1 [facility] carbonate 6-14 09-12 l capsule by [facility] (ESKALITH) 00:00: 23:59 disability mouth 2 300 mg 00 :00 (two) capsule times a day for 90 days haloperidoL 2021-0 2021- Yes [facility]ua 20mg Take 2 [facility] (HALDOL) 10 6-14 09-12 l tablets by ealth mg tablet 00:00: 23:59 disability mouth at 00 :00 bedtime nightly for 90 days cloNIDine 2021-2021- Yes Intellectua .1mg Take 1 [facility] HCL 6-14 09-12 l tablet by [facility] (CATAPRES) 00:00: 23:59 disability mouth 0.1 mg 00 :00 every tablet evening amitriptyli 2021-2021- Yes [facility]lectua 10mg Take 1 [facility] (ELAVIL) 6-14 09-12 l tablet by [facility] 10 mg 00:00: 23:59 disability mouth at tablet 00 :00 bedtime nightly cloNIDine 2021-0 2021- Yes .1mg Take 0.[address] [facility]CL 6-14 09-[facility] 00:00: 23:59 mouth. Medi jonatan 0.1 MG 00 :00 Center tablet senna-docus 2021-2021- Yes 2{tbl} Take [address] ate 6-14 09-12 [facility] (SENOKOT S[facility] 00:00: 23:59 mouth. Med ical 8.6-50 mg 00 :00 Center per tablet sennosides- 2021-0 2021- Yes [facility] 2{tbl} Q.5D Take 2 [facility] docusate 6-14 09-[address] [facility] sodium 00:00: 23:59 disability mouth 2 (SENNA 00 :00 (two) PLUS) times a 8.6-50 mg day for 90 tablet days mirtazapine 2021-0 2021- Yes [facility] 15mg Take 1 [facility] (REMERON) 6-14 09-[address] [facility] 15 mg 00:00: 23:59 disability mouth at tablet 00 :00 bedtime nightly for 90 days lithium 2021- Yes Intel[facility] 300mg Q.5D Take 1 [facility] carbonate 6-14 09-12 l capsule by [facility] (ESKALITH) 00:00: 23:59 disability mouth 2 300 mg 00 :00 (two) capsule times a day for 90 days haloperidoL 2021- Yes [facility] 20mg Take 2 [facility] (HALDOL) 10 6-14 09-12 l tablets by ealth mg tablet 00:00: 23:59 disability mouth at 00 :00 bedtime nightly for 90 days cloNIDine 2021- Yes [facility] .1mg Take 1 [facility] HCL 6-14 09-12 l tablet by [facility] (CATAPRES) 00:00: 23:59 disability mouth 0.1 mg 00 :00 every tablet evening amitriptyli 2021- Yes [facility] 10mg Take 1 [facility] ne (ELAVIL) 6-14 09-12 l tablet by Matt jordan 10 mg 00:00: 23:59 disability mouth at tablet 00 :00 bedtime nightly sucralfate Yes 1g Q.25D Take [address] [facility] [address] [facility] (CARAFATE) 6-13 by mouth 4 Chrissie es 1 gram 00:00: (four) Medical tablet 00 times Center daily. sucralfate 0 Yes 1g Q.25D Take [address] [facility] [address] [facility] (CARAFATE) 6-13 by mouth 4 Chrissie es 1 gram 00:00: (four) Medical tablet 00 times Center daily. sucralfate 0 Yes 1g Q.25D Take [address] [facility] [address] [facility] (CARAFATE) 6-13 by mouth 4 Chrissie es 1 gram 00:00: (four) Medical tablet 00 times Center daily. sucralfate 0 Yes 1g Q.25D Take [address] [facility] [address] [facility] (CARAFATE) 6-13 by mouth 4 Chrissie es 1 gram 00:00: (four) Medical tablet 00 times Center daily. lithium 300 Yes 300mg Q.[id number] Take [address] [facility] MG capsule 5-27 [id number] mg by [facility] kes 00:00: 3D mouth 3 Medical 00 (three) Center times daily. lithium 300 2022-0 Yes 300mg Q.[id number] Take [address] [facility] MG capsule 5-27 [id number] mg by [facility] kes 00:00: 3D mouth 3 Medical 00 (three) Center times daily. lithium 300 2021-0 Yes 300mg Q.[id number] Take [address] [facility] MG capsule 5-27 [id number] mg by [facility] kes 00:00: 3D mouth 3 Medical 00 (three) Center times daily. lithium 300 2021-0 Yes 300mg Q.[id number] Take [address] [facility] MG capsule 5-27 [id number] mg by [facility] kes 00:00: 3D mouth 3 Medical 00 (three) Center times daily. mirtazapine 0 Yes 15mg QD Take [address] [facility] (REMERON) 5-25 by mouth [facility] 15 MG 16:23: nightly. Medical tablet 12 [place] OLANZapine Yes 10mg QD Take [address] (ZYPREXA) 5-25 by mouth [facility] 10 MG 16:23: nightly. Medical tablet 12 [place] primidone 0 Yes 50mg Q.25D Take [address] (MYSOLINE) 5-25 by mouth 4 Chrissie es 50 MG 16:23: (four) Medical tablet 12 times Center daily. propranoloL Yes 40mg Q.[id number] Take [address] [facility] (INDERAL) 5-25 [id number] by mouth 3 [facility] 40 MG 16:23: 3D (three) Medical tablet 12 times Center daily. traZODone 0 Yes 100mg QD Take [address] [facility] (DESYREL) 5-25 mg by [facility] 100 MG 16:23: mouth Medical tablet 12 nightly. [place] amitriptyli Yes 10mg QD Take [address] [facility] ne (ELAVIL) 5-25 by mouth Luke [facility] 10 MG 16:23: nightly. Medical tablet 12 [place] benztropine 0 Yes 2mg Q.5D Take [address] (COGENTIN) 5-25 by mouth 2 Chrissie es 2 MG tablet 16:23: (two) Medic al 12 times Center daily. clorazepate 0 Yes 3.75mg Q.5D Take 3.[address] [facility] (TRANXENE) 5-25 mg by [facility] 3.75 MG 16:23: mouth 2 Medical tablet 12 (two) Center times daily. haloperidoL 2022-0 Yes 10mg Q.25D Take [address] [facility] (HALDOL) 10 5-25 by mouth 4 [facility] k[facility] MG tablet 16:23: (four) Medica l 12 times Center daily. mirtazapine 202-0 Yes 15mg QD Take [address] [facility] (REMERON) 5-25 by mouth [facility] 15 MG 16:23: nightly. Medical tablet 12 Center OLANZapine 2021-0 Yes 10mg QD Take [address] (ZYPREXA) 5-25 by mouth [facility] 10 MG 16:23: nightly. Medical tablet 12 Center primidone 2021-0 Yes 50mg Q.25D Take [address] (MYSOLINE) 5-25 by mouth 4 Chrissie es 50 MG 16:23: (four) Medical tablet 12 times Center daily. propranoloL 2021-0 Yes 40mg Q.[id number] Take [address] [facility] (INDERAL) 5-25 [id number] by mouth 3 [facility] 40 MG 16:23: 3D (three) Medical tablet 12 times Center daily. traZODone 2021-0 Yes 100mg QD Take [address] [facility] (DESYREL) 5-25 mg by [facility] 100 MG 16:23: mouth Medical tablet 12 nightly. [place] amitriptyli 2021-0 Yes 10mg QD Take [address] [facility] ne (ELAVIL) 5-25 by mouth Luke s 10 MG 16:23: nightly. Medical tablet 12 [place] benztropine 2021-0 Yes 2mg Q.5D Take [address] (COGENTIN) 5-25 by mouth 2 Chrissie es 2 MG tablet 16:23: (two) Medic al 12 times Center daily. clorazepate 2022-0 Yes 3.75mg Q.5D Take 3.[address] (TRANXENE) 5-25 mg by [facility] 3.75 MG 16:23: mouth 2 Medical tablet 12 (two) Center times daily. haloperidoL 2-0 Yes 10mg Q.25D Take [address] [facility] (HALDOL) 10 5-25 by mouth 4 [facility] k[facility] MG tablet 16:23: (four) Medica l 12 times Center daily. mirtazapine 2021-0 Yes 15mg QD Take [address] [facility] (REMERON) 5-25 by mouth [facility] 15 MG 16:23: nightly. Medical tablet 12 Center OLANZapine 2021-0 Yes 10mg QD Take [address] (ZYPREXA) 5-25 by mouth [facility] 10 MG 16:23: nightly. Medical tablet 12 Center primidone 2021-0 Yes 50mg Q.25D Take [address] (MYSOLINE) 5-25 by mouth 4 Chrissie es 50 MG 16:23: (four) Medical tablet 12 times Center daily. propranoloL 2021-0 Yes 40mg Q.[id number] Take [address] [facility] (INDERAL) 5-25 [id number] by mouth 3 [facility] 40 MG 16:23: 3D (three) Medical tablet 12 times Center daily. traZODone 2021-0 Yes 100mg QD Take [address] [facility] (DESYREL) 5-25 mg by [facility] 100 MG 16:23: mouth Medical tablet 12 nightly. Center amitriptyli 0 Yes 10mg QD Take [address] [facility] ne (ELAVIL) 5-25 by mouth Luke s 10 MG 16:23: nightly. Medical tablet 12 Center benztropine 0 Yes 2mg Q.5D Take [address] (COGENTIN) 5-25 by mouth 2 Chrissie es 2 MG tablet 16:23: (two) Medic al 12 times Center daily. clorazepate 2021-0 Yes 3.75mg Q.5D Take 3.[address] (TRANXENE) 5-25 mg by [facility] 3.75 MG 16:23: mouth 2 Medical tablet 12 (two) Center times daily. haloperidoL 2021-0 Yes 10mg Q.25D Take [address] [facility] (HALDOL) 10 5-25 by mouth 4 [facility] k[facility] MG tablet 16:23: (four) Medica l 12 times Center daily. amitriptyli 2021-0 Yes 10mg QD Take [address] [facility] ne (ELAVIL) 5-25 by mouth Luke s 10 MG 16:23: nightly. Medical tablet 12 Center benztropine 2021-0 Yes 2mg Q.5D Take [address] (COGENTIN) 5-25 by mouth 2 Chrissie es 2 MG tablet 16:23: (two) Medic al 12 times Center daily. clorazepate 2021-0 Yes 3.75mg Q.5D Take 3.[address] [facility] (TRANXENE) 5-25 mg by [facility] 3.75 MG 16:23: mouth 2 Medical tablet 12 (two) Center times daily. haloperidoL 2021-0 Yes 10mg Q.25D Take [address] [facility] (HALDOL) 10 5-25 by mouth 4 Amalia kes MG tablet 16:23: (four) Medica l 12 times Center daily. mirtazapine 2021-0 Yes 15mg QD Take [address] [facility] (REMERON) 5-25 by [facility] 15 MG 16:23: nightly. Medical tablet 12 Center OLANZapine 2021-0 Yes 10mg QD Take [address] (ZYPREXA) 5-25 by [facility] 10 MG 16:23: nightly. Medical tablet 12 Center primidone 2021-0 Yes 50mg Q.25D Take [address] [facility] (MYSOLINE) 5-25 by mouth 4 Chrissie es 50 MG 16:23: (four) Medical tablet 12 times Center daily. propranoloL 2021-0 Yes 40mg [id number] Take [address] [facility] (INDERAL) 5-25 [id number] by mouth 3 [facility] 40 MG 16:23: 3D (three) Medical tablet 12 times Center daily. traZODone 2021-0 Yes 100mg QD Take [address] [facility] (DESYREL) 5-25 mg by [facility] 100 MG 16:23: mouth Medical tablet 12 nightly. Center polyethylen 2021-0 2021- No 17g QD Take [address] [facility] e glycol 07-30 by mouth [facility] (GLYCOLAX) 00:00: 23:59 daily for edical 17 00 :00 5 days. Center gram/dose powder polyethylen 2021-0 2021- No 17g QD Take [address] [facility] e glycol 07-30 by mouth [facility] (GLYCOLAX) 00:00: 23:59 daily for M edical 17 00 :00 5 days. Center gram/dose powder polyethylen 2021-0 2021- No 17g QD Take [address] [facility] e glycol 07-30 by mouth [facility] (GLYCOLAX) 00:00: 23:59 daily for M talha 17 00 :00 5 days. Center gram/dose powder polyethylen 2021- No 17g QD Take [address] [facility] [address] e glycol 07-30 by mouth [facility] (GLYCOLAX) 00:00: 23:59 daily for [facility] 00 :00 5 days. Center gram/dose powder Vital Signs Vital Name Observation Time Observation Value Comments Source HEIGHT 2022-01-12 15:34:00 162.6 cm WEIGHT 2022-01-12 15:34:00 54.432 kg HEIGHT 2022-01-12 15:34:00 162.6 cm WEIGHT 2022-01-12 15:34:00 54.432 kg HEIGHT 2022-01-12 15:34:00 162.6 cm WEIGHT 2022-01-12 15:34:00 54.432 kg HEIGHT 2021-11-25 16:15:00 170.2 cm WEIGHT 2021-11-25 16:15:00 56.7 kg HEIGHT 2021-11-25 16:15:00 170.2 cm WEIGHT 2021-11-25 16:15:00 56.7 kg HEIGHT 2021-11-25 16:15:00 170.2 cm WEIGHT 2021-11-25 16:15:00 56.7 kg HEIGHT 2021-07-30 18:40:00 177.8 cm WEIGHT 2021-07-30 18:40:00 54.1 kg HEIGHT 2021-07-30 18:40:00 177.8 cm WEIGHT 2021-07-30 18:40:00 54.1 kg HEIGHT 2021-07-30 18:40:00 177.8 cm WEIGHT 2021-07-30 18:40:00 54.1 kg Systolic blood 2022-01-12 17:37:00 114 mm[Hg] [facility] Diastolic blood 2022-01-12 17:37:00 74 mm[Hg] [facility] Heart rate 2022-01-12 17:37:00 60 /min [facility] Respiratory rate 2022-01-12 17:37:00 16 /min [facility] Oxygen saturation in 2022-01-12 17:37:00 98 /min [facility] Arterial blood by Medical Ce nter Pulse oximetry Body temperature 2022-01-12 15:34:00 36.67 Darling [facility] Body height 2022-01-12 15:34:00 162.6 cm [facility] Body weight 2022-01-12 15:34:00 54.432 kg [facility] BMI 2022-01-12 15:34:00 20.60 kg/m2 [facility] Systolic blood 2021-12-23 11:21:00 89 mm[Hg] [facility] pressure Diastolic blood 2021-12-23 11:21:00 56 mm[Hg] [facility] pressure Heart rate 2021-12-23 11:21:00 64 /min [facility] Respiratory rate 2021-12-23 11:21:00 18 /min [facility] Body height 2021-12-23 11:21:00 167.6 cm [facility] Body weight 2021-12-23 11:21:00 51.71 kg [facility] BMI 2021-12-23 11:21:00 18.40 kg/m2 [facility] Body temperature 2021-12-16 11:10:00 37.06 Darling [facility] Oxygen saturation in 2021-12-16 11:10:00 97 /min [facility] Arterial blood by Pulse oximetry Respiratory rate 2021-07-30 18:40:00 20 /min [facility] Body height 2021-07-30 18:40:00 177.8 cm [facility] Body weight 2021-07-30 18:40:00 54.1 kg [facility] BMI 2021-07-30 18:40:00 17.11 kg/m2 [facility] Oxygen saturation in 2021-07-30 18:40:00 100 /min [facility] Arterial blood by Medical Ce nter Pulse oximetry Systolic blood 2021-07-30 18:40:00 102 mm[Hg] [facility] Diastolic blood 2021-07-30 18:40:00 60 mm[Hg] [facility] Heart rate 2021-07-30 18:40:00 56 /min [facility] Body temperature 2021-07-30 18:40:00 36.61 Darling [facility] Procedures Procedure Date / Time Performed Performing Clinician Sourwarren e CBC W/PLT COUNT & AUTO 2022-01-12 16:35:[address] [place] [address] [facility] DIFFERENTIAL [facility] COMPREHENSIVE METABOLIC 2022-01-12 16:35:[address] [place] [address] [facility] PANEL [facility] B-TYPE NATRIURETIC FACTOR 2022-01-12 16:35:[address] [facility] (BNP) [facility] CBC W/PLT COUNT & AUTO 2022-01-12 16:35:00 [place] [facility] DIFFERENTIAL [facility] CBC (WITHOUT 2021-12-23 12:16:00 Annie Moon ealth DIFFERENTIAL) COMPREHENSIVE METABOLIC 2021-12-23 12:16:00 Annie Moon [facility] PANEL HGB/HCT 2021-12-15 15:09:00 Ruthy Matthews lth XRAY MODIFIED BARIUM 2021-12-15 11:40:00 Ruthy Matthews [facility] SWALLOW W CINE/VIDEO (MBS) GLUCOSE POC 2021-12-15 10:53:00 Elida Peter LIVER PROFILE 2021-12-15 04:50:00 Talha Kohli h [place] [facility] BASIC METABOLIC PANEL 2021-12-15 04:50:00 Talha Kohli [facility] [place] P CBC/DIFF 2021-12-15 04:50:00 MutucumarTalha tapia h [place] CBC 2021-12-15 04:50:00 MutucumarTalha tapia h [place] DIFFERENTIAL, MANUAL-WAM 2021-12-15 04:50:00 Mutucumarwillie [facility] [place] P XRAY CHEST 1 VIEW 2021-12-14 14:06:00 Ruthy Matthews ealth 12 LEAD EKG 2021-12-14 14:05:19 Ruthy Matthews lth GLUCOSE POC 2021-12-14 14:00:[address] [facility] PT/INR/PTT 2021-12-14 13:44:00 QuijanoTera h [place] PRO 2021-12-14 13:44:00 Tera Quijano alth COAG STUDIES INTERP 2021-12-14 13:44:00 QuijanoTera [facility] REPORT (BKR) CONSULT CLINICAL CASE 2021-12-14 12:14:27 Seun [facility] MANAGEMENT (RN/SW) [place] CBC/DIFF 2021-12-14 09:43:00 Ruthy Matthews [facility] CBC 2021-12-14 09:43:[address] [facility] DIFFERENTIAL, MANUAL-[facility] 2021-12-14 09:43:00 [facility] LITHIUM 2021-12-14 08:35:00 Ruthy Matthews [facility] LIVER PROFILE 2021-12-14 04:28:00 Mutucumarwillie, [facility] [place] P BASIC METABOLIC PANEL 2021-12-14 04:28:00 Mutucumarwillie, [facility] [place] P CBC/DIFF 2021-12-14 04:28:00 Mutucumarwillie, [facility] [place] P CBC 2021-12-14 04:28:00 Mutucamelia, [facility] [place] P RBC MORPHOLOGY-[facility] 2021-12-14 04:28:00 Suen [facility] alth [place] P LITHIUM 2021-12-13 21:15:00 Mutucumarwillie, [facility] [place] P COMMODE AT BEDSIDE 2021-12-13 08:17:33 Elida Peter [facility] LIVER PROFILE 2021-12-13 04:53:00 Mutucumarwillie, [facility] [place] BASIC METABOLIC PANEL 2021-12-13 04:53:00 Mutucumarwillie, [facility] [place] P CBC/DIFF 2021-12-13 04:53:00 Mutucumarwillie, [facility] [place] [facility] CBC 2021-12-13 04:53:00 Mutucumarana, [facility] [place] LIVER PROFILE 2021-12-12 04:26:00 Mutucumarana, [facility] [place] SEQUENTIAL COMPRESSION 2021-12-12 00:42:[address] [facility] CBC/DIFF 2021-12-11 04:51:00 Mutucumarana, [facility] [place] BASIC METABOLIC PANEL 2021-12-11 04:51:00 Mutucumarana, [facility] [place] P LIVER PROFILE 2021-12-11 04:51:00 Mutucumarana, [facility] [place] CBC 2021-12-11 04:51:00 Mutucumarana, [facility] [place] RETIC COUNT 2021-12-11 04:51:00 Tera Quijano [facility] U/S ABDOMEN LIMITED 2021-12-10 08:50:00 Ruthy Matthews [facility] CBC/DIFF 2021-12-10 05:32:00 Mutucumarana, [facility] [place] BASIC METABOLIC PANEL 2021-12-10 05:32:00 Mutucumarana, [facility] [place] P LIVER PROFILE 2021-12-10 05:32:00 Mutucumarana, [facility] [place] CBC 2021-12-10 05:32:00 Mutucumarana, [facility] [place] CT FEMUR W CONTRAST 2021-12-09 16:25:48 Ruthy Matthews [facility] CBC/DIFF 2021-12-09 04:35:00 Mutucumarana, [facility] [place] BASIC METABOLIC PANEL 2021-12-09 04:35:00 Mutucumarana, [facility] [place] P LIVER PROFILE 2021-12-09 04:35:00 Mutucumarana, [facility] [place] CBC 2021-12-09 04:35:00 Mutucumarana, [facility] [place] P VIT D, 25-HYDROXY 2021-12-09 04:35:00 Ruthy Matthews [facility] COMMODE AT BEDSIDE 2021-12-08 21:45:09 Elida Peter [facility] CBC/DIFF 2021-12-08 05:03:00 Mutucumarwillie, [facility] [place] P BASIC METABOLIC PANEL 2021-12-08 05:03:00 Nateucumarwillie, [facility] [place] P LIVER PROFILE 2021-12-08 05:03:00 Mutjoseumarwillie [facility] [place] P CBC 2021-12-08 05:03:00 Mutucumarwillie, [facility] [place] P INFUSION PUMP 2021-12-07 18:01:[address] [facility] CBC/DIFF 2021-12-07 05:21:[address] [facility] BASIC METABOLIC PANEL 2021-12-07 05:21:00 Ruthy Matthews [facility] LIVER PROFILE 2021-12-07 05:21:[address] [facility] LACTATE DEHYDROGENASE 2021-12-07 05:21:00 Elida Peter [facility] HAPTOGLOBIN 2021-12-07 05:21:[address] [facility] AMMONIA 2021-12-07 05:21:[address] [facility] CBC 2021-12-07 05:21:[address] [facility] PT/INR/PTT 2021-12-06 05:02:[address] [facility] CT ABDOMEN AND PELVIS 2021-12-05 16:10:17 Compa Matthewsyoseftaniya [facility] CONTRAST CT CHEST W CONTRAST 2021-12-05 16:10:17 Michael Giraldo [facility] PATHOLOGIST REVIEW 2021-12-05 04:08:00 Tera Quijano [facility] SAVE SMEAR/ NOT FOR PATH 2021-12-05 04:08:00 Tera Quijano [facility] REVIEW LEAD, WHOLE BLOOD (ADULT) 2021-12-04 11:14:00 [facility] 2021-12-04 10:15:00 [facility]un[facility] BETZY/ DIRECT [facility] HIV AG/AB COMBO ROUTINE 2021-12-04 10:15:00 Seun [facility] SCREENING [place] HEPATITIS PANEL 2021-12-04 10:15:00 Talha Kohli HEMOGLOBIN A1C 2021-12-04 04:06:00 Talha Kohli P LACTATE DEHYDROGENASE 2021-12-04 04:06:00 Seun [facility] ([facility]) [place] CBC/DIFF 2021-12-04 04:06:[address] [facility] BASIC METABOLIC PANEL 2021-12-04 04:06:00 Ruthy Matthews [facility] Health CBC 2021-12-04 04:06:[address] [facility] RETIC COUNT 2021-12-04 04:06:00 Talha Kohli SAVE SMEAR/ NOT FOR PATH 2021-12-04 04:06:00 Seun [facility] REVIEW [place] FREE T4 2021-12-04 04:06:[address] [facility] URINALYSIS W/REFLEX TO 2021-12-03 16:54:00 Seun [facility] URINE CULTURE [place] URINALYSIS 2021-12-03 16:54:00 Talha Kohli URINE CULTURE COLLECTION 2021-12-03 16:54:00 Seun [facility] KIT [place] NUTRITION CONSULT 2021-12-03 07:40:36 Talha Kohli [facility] ASSESSMENT [place] P IRON PROFILE 2021-12-03 04:44:00 Talha Kohlimaine P CBC/DIFF 2021-12-03 04:44:00 Talha Kohlimaine P CBC 2021-12-03 04:44:00 Talha Kohli P THYROID STIMULATING 2021-12-03 04:44:00 Talha Kohli ealtcelestino HORMONE (TSH) [place] VITAMIN B12 2021-12-03 04:44:00 Talha Kohli P FOLIC ACID 2021-12-03 04:44:00 Mutucumarwillie, [facility] [place] P FREE T4 2021-12-03 04:44:00 [facility] 2021-12-03 04:44:00 Seun, [facility] [place] P SAVE SMEAR/ NOT FOR PATH 2021-12-03 04:44:00 Seun [facility] REVIEW [place] SEQUENTIAL COMPRESSION 2021-12-03 03:19:55 Mutucumarwillie, [facility] PUMP [place] SARS-COV-2, FLU A/B, RSV 2021-12-03 01:06:00 Pan [facility] CORONAVIRUS, COVID-19, 2021-12-03 01:06:00 Pan Judith [facility] YOSHI CREATININE POC 2021-12-02 20:31:00 Lion Parry [facility] Kym BMP POC 2021-12-02 20:31:00 Lion Parry [facility] Kym CBC/DIFF 2021-12-02 20:17:00 Marino Crooks [facility] CBC 2021-12-02 20:17:00 Marino Crooks [facility] LITHIUM 2021-12-02 20:17:00 Moe Sim [facility] COMPREHENSIVE METABOLIC 2021-12-02 20:17:00 Seun, [facility] PANEL [place] P FERRITIN 2021-12-02 20:17:00 Seun [facility] [place] P CT HEAD W/O CONTRAST 2021-12-02 18:26:07 Pan [facility] CT ABDOMEN/PELVIS WITH IV 2021-07-30 20:25:00 AdrianBrii Grace [facility] CBC W/PLT COUNT & AUTO 2021-07-30 19:37:[address] [facility] BASIC METABOLIC PANEL (7) 2021-07-30 19:37:00 AdrianBrii Grace [facility] PROTHROMBIN TIME/INR 2021-07-30 19:37:00 Brii Campbell [facility] CBC W/PLT COUNT & AUTO 2021-07-30 19:37:[address] [facility] Plan of Care Planned Activity Planned Date Details Comments Source Future Scheduled 2025-07-17 DTAP/TDAP/TD [facility] 00:[facility]00 VACCINES (2 - Td or Medical Center Tdap) [code = DTAP/TDAP/TD VACCINES (2 - Td or Tdap)] Future Scheduled 2025-07-17 DTAP/TDAP/TD [facility] Test 00:00:00 VACCINES (2 - Td or [facility] Tdap) [code = DTAP/TDAP/TD VACCINES (2 - Td or Tdap)] Future Scheduled 2025-07-17 DTAP/TDAP/TD [facility] Test 00:00:00 VACCINES (2 - Td or [facility] Tdap) [code = DTAP/TDAP/TD VACCINES (2 - Td or Tdap)] Future Scheduled 2025-07-17 DTAP/TDAP/TD [facility] Test 00:00:00 VACCINES (2 - Td or [facility] Tdap) [code = DTAP/TDAP/TD VACCINES (2 - Td or Tdap)] Future Scheduled 2022-04-03 [facility] 00:[facility]:00 Seasonal (>/= 19 yrs) [code = IMM Influenza Seasonal (>/= 19 yrs)] Future Scheduled 2022-04-03 [facility] 00:00:00 Seasonal (>/= 19 yrs) [code = IMM Influenza Seasonal (>/= 19 yrs)] Future Scheduled 2022-04-03 [facility] 00:00:00 Seasonal (>/= 19 yrs) [code = IMM Influenza Seasonal (>/= 19 yrs)] Future Scheduled 2022-04-03 [facility]MM [facility] 00:00:00 Seasonal (>/= 19 yrs) [code = IMM Influenza Seasonal (>/= 19 yrs)] Future Scheduled 2022-03-04 INFLUENZA VACCINE [facility] Test 00:00:00 (#1) [code = Medical Center INFLUENZA VACCINE (#1)] Future Scheduled 2022-03-[address] [facility] Test 00:00:00 (#1) [code = Medical Center INFLUENZA VACCINE (#1)] Future Scheduled 2022-03-[address] [facility] Test 00:00:00 (#1) [code = Medical Center INFLUENZA VACCINE (#1)] Future Scheduled 2022-03-[address] [facility] Test 00:00:00 (#1) [code = Medical Center INFLUENZA VACCINE (#1)] Future Scheduled 2022-03-[address] [facility] Test 00:00:00 (#1) [code = Medical Center INFLUENZA VACCINE (#1)] Future Scheduled 2022-03-[address] [facility] Test 00:00:00 (#1) [code = Medical Center INFLUENZA VACCINE (#1)] Future Scheduled 2022-03-[address] [facility] Test 00:00:00 (#1) [code = Medical Center INFLUENZA VACCINE (#1)] Future Scheduled 2022-03-[address] [facility] Test 00:00:00 (#1) [code = Medical Center INFLUENZA VACCINE (#1)] Future Scheduled 2022-03-03 HEPATITIS B VACCINES [facility] Test 12:27:23 (1 of 3 - 3-dose series) [code = HEPATITIS B VACCINES (1 of 3 - 3-dose series)] Future Scheduled 2022-03-03 COVID-19 VACCINE [facility] Test 12:27:23 (#1) [code = COVID-19 VACCINE (#1)] Future Scheduled 2022-03-03 IN[facility]UENZA VACCINE [facility] Test 12:27:23 [code = INFLUENZA VACCINE] Future Scheduled 2022-02-19 COVID-19 VACCINE [facility] Test 10:27:57 (#1) [code = COVID-19 VACCINE (#1)] Future Scheduled 2022-02-19 INFLUENZA VACCINE [facility] Test 10:27:57 [code = INFLUENZA VACCINE] Future Scheduled 2022-02-19 HEPATITIS B VACCINES [facility] Test 10:27:57 (1 of 3 - 3-dose series) [code = HEPATITIS B VACCINES (1 of 3 - 3-dose series)] Future Scheduled 2022-02-19 COVID-19 VACCINE [facility] Test 10:27:57 (#1) [code = COVID-19 VACCINE (#1)] Future Scheduled 2022-02-19 INFLUENZA VACCINE [facility] Test 10:27:57 [code = INFLUENZA VACCINE] Future Scheduled 2022-02-19 HEPATITIS B VACCINES [facility] Test 10:27:57 (1 of 3 - 3-dose series) [code = HEPATITIS B VACCINES (1 of 3 - 3-dose series)] Future Scheduled 2022-02-19 [facility] 10:27:57 (#1) [code = COVID-19 VACCINE (#1)] Future Scheduled 2022-02-19 INFLUENZA VACCINE [facility] Test 10:27:57 [code = INFLUENZA VACCINE] Future Scheduled 2022-02-19 HEPATITIS B VACCINES [facility] Test 10:27:57 (1 of 3 - 3-dose series) [code = HEPATITIS B VACCINES (1 of 3 - 3-dose series)] Future Scheduled 2021-07-[address] [facility] Test 00:00:00 (12+) [code = Medical Center DEPRESSION SCREENING (12+)] Future Scheduled 2021-07-[address] [facility] Test 00:00:00 (12+) [code = Medical Center DEPRESSION SCREENING (12+)] Future Scheduled 2021-07-[address] [facility] Test 00:00:00 (12+) [code = Medical Center DEPRESSION SCREENING (12+)] Future Scheduled 2021-07-[address] [facility] Test 00:00:00 (12+) [code = Medical Center DEPRESSION SCREENING (12+)] Future Scheduled 2021-07-[address] [facility] Test 00:00:00 (12+) [code = Medical Center DEPRESSION SCREENING (12+)] Future Scheduled 2021-07-[address] [facility] Test 00:00:00 (12+) [code = Medical Center DEPRESSION SCREENING (12+)] Future Scheduled 2021-07-[address] [facility] Test 00:00:00 (12+) [code = Medical Center DEPRESSION SCREENING (12+)] Future Scheduled 2021-07-[address] [facility] Test 00:00:00 (12+) [code = Medical Center DEPRESSION SCREENING (12+)] Future Scheduled 2019-11-[address] [facility] 00:00:00 (procedure) [code = [facility] [id number]] Future Scheduled 2019-11-[address] [facility] 00:00:00 (procedure) [code = Medical Center [id number]] Future Scheduled 2019-11-[address] [facility] 00:00:00 (procedure) [code = Medical Center [id number]] Future Scheduled 2019-11-[address] [facility] Test 00:00:00 (procedure) [code = Medical Center [id number]] Future Scheduled 2019-11-[address] [facility] 00:00:00 (procedure) [code = Medical Center [id number]] Future Scheduled 2019-11-[address] [facility] 00:00:00 (procedure) [code = Medical Center [id number]] Future Scheduled 2019-11-[address] [facility] 00:00:00 (procedure) [code = Medical Center [id number]] Future Scheduled 2019-11-[address] [facility] 00:00:00 (procedure) [code = Medical Center [id number]] Future Scheduled 2011-01-[address] [facility] 00:00:00 WELLNESS (YEAR 2 or Medical Center FIRST YEAR if no IPPE) [code = MEDICARE ANNUAL WELLNESS (YEAR 2 or FIRST YEAR if no IPPE)] Future Scheduled 2011-01-[address] [facility] 00:00:00 WELLNESS (YEAR 2 or Medical Center FIRST YEAR if no IPPE) [code = MEDICARE ANNUAL WELLNESS (YEAR 2 or FIRST YEAR if no IPPE)] Future Scheduled 2011-01-[address] [facility] 00:00:00 WELLNESS (YEAR 2 or Medical Center FIRST YEAR if no IPPE) [code = MEDICARE ANNUAL WELLNESS (YEAR 2 or FIRST YEAR if no IPPE)] Future Scheduled 2011-01-[address] [facility] 00:00:00 WELLNESS (YEAR 2 or Medical Center FIRST YEAR if no IPPE) [code = MEDICARE ANNUAL WELLNESS (YEAR 2 or FIRST YEAR if no IPPE)] Future Scheduled 2011-01-[address] [facility] 00:00:00 WELLNESS (YEAR 2 or Medical Center FIRST YEAR if no IPPE) [code = MEDICARE ANNUAL WELLNESS (YEAR 2 or FIRST YEAR if no IPPE)] Future Scheduled 2011-01-[address] [facility] 00:00:00 WELLNESS (YEAR 2 or Medical Center FIRST YEAR if no IPPE) [code = MEDICARE ANNUAL WELLNESS (YEAR 2 or FIRST YEAR if no IPPE)] Future Scheduled 2011-01-[address] [facility] 00:00:00 WELLNESS (YEAR 2 or Medical Center FIRST YEAR if no IPPE) [code = MEDICARE ANNUAL WELLNESS (YEAR 2 or FIRST YEAR if no IPPE)] Future Scheduled 2011-01-[address] [facility] 00:00:00 WELLNESS (YEAR 2 or Medical Center FIRST YEAR if no IPPE) [code = MEDICARE ANNUAL WELLNESS (YEAR 2 or FIRST YEAR if no IPPE)] Future Scheduled 2003-11-15 DTAP/TDAP/TD [facility] 00:00:00 VACCINES (1 - Tdap) Medical Center [code = DTAP/TDAP/TD VACCINES (1 - Tdap)] Future Scheduled 2003-11-15 DTAP/TDAP/TD [facility] 00:00:00 VACCINES (1 - Tdap) Medical Center [code = DTAP/TDAP/TD VACCINES (1 - Tdap)] Future Scheduled 2003-11-15 DTAP/TDAP/TD [facility] 00:00:00 VACCINES (1 - Tdap) Medical Center [code = DTAP/TDAP/TD VACCINES (1 - Tdap)] Future Scheduled 2003-11-15 DTAP/TDAP/TD [facility] 00:00:00 VACCINES (1 - Tdap) Medical Center [code = DTAP/TDAP/TD VACCINES (1 - Tdap)] Future Scheduled [address] [facility] 00:00:00 SCREENING [code = Medical Ce nter HEPATITIS C SCREENING] Future Scheduled [address] [facility] Test 00:00:00 SCREENING [code = Medical Ce nter HEPATITIS C SCREENING] Future Scheduled [address] [facility] 00:00:00 SCREENING [code = Medical Ce nter HEPATITIS C SCREENING] Future Scheduled [address] [facility] Test 00:00:00 SCREENING [code = Medical Ce nter HEPATITIS C SCREENING] Future Scheduled [address] [facility] Test 00:00:00 SCREENING [code = Medical Ce nter HEPATITIS C SCREENING] Future Scheduled [address] [facility] Test 00:00:00 SCREENING [code = Medical Ce nter HEPATITIS C SCREENING] Future Scheduled [address] [facility] Test 00:00:00 SCREENING [code = Medical Ce nter HEPATITIS C SCREENING] Future Scheduled [address] [facility] Test 00:00:00 SCREENING [code = Medical Ce nter HEPATITIS C SCREENING] Future Scheduled 1989 COVID-[address] [facility] Test 00:00:00 (#1) [code = Medical Center COVID-19 VACCINE (#1)] Future Scheduled 1989 COVID-[address] [facility] Test 00:00:00 (#1) [code = Medical Center COVID-19 VACCINE (#1)] Future Scheduled 1989 COVID-[address] [facility] Test 00:00:00 (#1) [code = Medical Center COVID-19 VACCINE (#1)] Future Scheduled 1989 COVID-[address] [facility] Test 00:00:00 (#1) [code = Medical Center COVID-19 VACCINE (#1)] Future Scheduled 1989 COVID-[address] [facility] Test 00:00:00 (#1) [code = Medical Center COVID-19 VACCINE (#1)] Future Scheduled 1989 COVID-[address] [facility] Test 00:00:00 (#1) [code = Medical Center COVID-19 VACCINE (#1)] Future Scheduled 1985-05-17 COVID-19 Vaccine [facility] Test 00:00:00 (#1) [code = COVID-19 Vaccine (#1)] Future Scheduled 1985-05-17 COVID-19 Vaccine [facility] Test 00:00:00 (#1) [code = COVID-19 Vaccine (#1)] Future Scheduled 1985-05-17 COVID-19 Vaccine [facility] Test 00:00:00 (#1) [code = COVID-19 Vaccine (#1)] Future Scheduled 1985-05-17 COVID-[address] [facility] Test 00:00:00 (#1) [code = Medical Center COVID-19 VACCINE (#1)] Future Scheduled 1985-05-17 COVID-[address] [facility] Test 00:00:00 (#1) [code = Medical Center COVID-19 VACCINE (#1)] Future Scheduled 1985-05-17 COVID-19 Vaccine [facility] Test 00:00:00 (#1) [code = COVID-19 Vaccine (#1)] Future Scheduled 1985 Fluoride Varnish [facility] Test 00:00:00 [code = Fluoride Varnish] Future Scheduled 1985 Fluoride Varnish [facility] Test 00:00:00 [code = Fluoride Varnish] Future Scheduled 1985 Fluoride Varnish [facility] Test 00:00:00 [code = Fluoride Varnish] Future Scheduled 1985 Fluoride Varnish [facility] Test 00:00:00 [code = Fluoride Varnish] Encounters Start End Encounter Admission Attending Care Care Encounter Source Date/Time Date/Time Type Type Clinicians Facility Department ID 2022-02-08 Outpatient [facility] [id number] [place] 12:40:13 [id number] [facility] 2022-01-25 Outpatient [facility] [id number] [place] 13:48:30 [id number] [facility] 2022-01-15 Outpatient DIAMOND, MHFB MHFB [id number] 09:20:35 WANDA 2022-05-03 2022-05-03 [facility] SG[facility] [id number] [place] 00:00:00 00:00:00 KAMILLE Abreu 2022-04-05 2022-04-05 Outpatient SG, [facility] [id number] [place] 00:00:00 00:00:00 KAMILLE Healt 2022-02-28 2022-02-28 Outpatient GC_BAHC_Tod PRIV PRIV [id number] [facility] 00:00:00 00:00:00 d_Vishnu [id number] Medica l 2022-02-25 2022-02-25 Outpatient Lizbeth, PRIV PRIV [id number] 00:00:00 00:00:00 Damir Ervinne [id number] 2022-02-19 2022-02-19 Outpatient GC_BAHC_Tod PRIV PRIV [id number] [facility] 00:00:00 00:00:00 d_J [id number] Medica l 2022-02-19 2022-02-19 Outpatient Vijay, PRIV PRIV [id number] 00:00:00 00:00:00 Mariela [id number] 2022-02-18 2022-02-18 Outpatient GC_BAHC_Tod PRIV PRIV [id number] [facility] 00:00:00 00:00:00 d_J [id number] Medica l 2022-01-26 2022-02-16 Inpatient U [facility] MED [id number] [facility] 14:02:00 21:42:00 RITVIJ l [facility] [facility] 2022-01-26 2022-02-16 [facility] [id number] 14:02:00 21:42:00 Ritubaldo 07 2022-02-02 2022-02-02 Outpatient [facility] [id number] [place] 00:00:00 00:00:00 [facility] 2022-01-18 2022-01-26 Inpatient E SAJJA, MHBL MED [id number] MHBL 10:31:00 12:59:00 [facility] 2022-01-16 2022-01-26 Outpatient Sajja, MHPL MHPL [id number] 07:55:41 12:59:00 [facility] 2022-01-16 2022-01-26 Outpatient Sajja, MHPL MHPL [id number] 07:55:41 12:59:00 [facility] 2022-01-16 2022-01-16 Outpatient Ajibade, MHPL MHPL [id number] 07:55:41 07:55:41 Chris 07 Akinwale 2022-01-12 2022-01-12 Emergency ER Ai [facility] [id number] [facility] 16:19:00 17:42:00 [facility] 2022-01-12 2022-01-12 Emergency ER AI, [facility] Emergency [id number] [facility] 16:19:00 17:42:00 [facility] 2022-01-12 2022-01-12 Emergency Ai [facility] [id number] 16:19:00 17:42:00 [facility] 2022-01-12 2022-01-12 Travel [facility] [id number] [facility] 00:[facility] 00:00:00 [facility] 2022-01-12 2022-01-12 Travel [facility] [id number] [facility] 00:[facility] 00:00:00 [facility] 2022-01-08 2022-01-08 Emergency [facility]ain [facility] LA00 [id number] [facility] 12:40:00 18:44:00 95 [facility] 2022-01-08 2022-01-08 Emergency Zain Degroot HCAPM HCAPM LA61 [facility] 12:40:00 18:44:00 [id number] [facility] 2022-01-07 2022-01-07 Orders Betty, [facility] [id number] [facility] 00:00:00 00:00:00 Only [facility] 2022-01-07 2022-01-07 Orders Betty, [facility] [id number] [place] 00:00:00 00:00:00 Only [facility] 2021-12-23 2021-12-23 Outpatient SARAI, [facility] [id number] [facility] 12:11:26 12:16:15 [facility] 2021-12-23 2021-12-23 Office SOUMAHORO, [facility] [id number] [place] 11:20:51 12:16:02 Visit [facility] 2021-12-23 2021-12-23 Office Soumahojessica, [facility] [id number] [place] 11:00:00 12:16:02 Visit [facility] 2021-12-23 2021-12-23 Outpatient SOUMAHOJESSICA, [facility] [id number] [facility] 00:00:00 00:00:00 [facility] 2021-12-23 2021-12-23 Orders Sarai, [facility] [id number] [facility] 00:00:00 00:00:00 Only Annie Abreu 2021-12-23 2021-12-23 [facility] [id number] [place] 00:00:00 00:00:00 Only Annie Abreu 2021-12-02 2021-12-16 Emergency Lion ParyrAllieKym [facility] [id number] [facility] 16:49:00 11:54:00 Marla Bai [facility] Elida Peter Charmaine P 2021-12-02 2021-12-16 Emergency Lion Kym Parry [facility] [id number] [facility] 16:49:00 11:54:00 Marla Bai Joslyn W Mutucumarana, Charmaine P 2021-12-15 2021-12-15 Out[facility] [id number] [place] 11:10:10 11:58:48 [facility] 2021-12-14 2021-12-14 Outpatient [facility] [id number] [place] 15:58:03 15:58:08 [facility] 2021-12-14 2021-12-14 Outpatient [facility] [id number] [place] 13:56:45 14:11:44 [facility] 2021-12-10 2021-12-10 Outpatient [facility] [id number] [place] 08:04:54 09:52:59 [facility] 2021-12-09 2021-12-09 Outpatient [facility] [id number] [place] 14:31:10 16:27:35 [facility] 2021-12-05 2021-12-05 Outpatient [facility] [id number] [place] 15:47:31 16:10:42 [facility] 2021-12-05 2021-12-05 Outpatient [facility] [id number] [place] 00:00:00 00:00:00 [facility] 2021-12-02 2021-12-[address] [facility] [id number] [place] 17:25:24 18:26:[facility] 2021-12-02 2021-12-02 [facility] [id number] [place] 16:49:00 16:49:00 [facility] 2021-12-01 2021-12-01 Outpatient JALAL, MHFB MHFB [id number] MHFB 06:20:00 12:40:00 WANDA 2021-12-01 2021-12-01 Outpatient Jaseferinol, MHSL MHSL [id number] 06:20:00 12:40:00 Wanda 05 [place] 2021-12-01 2021-12-01 Outpatient Jalal, MHSL MHSL [id number] 08:00:00 08:00:00 Wanda 05 [place] 2021-11-25 2021-11-25 Emergency Ojiaku, [facility] [id number] 16:20:00 16:55:00 [facility] 2021-11-25 2021-11-25 Emergency [facility] [id number] [facility] 16:20:00 16:55:00 [facility] 2021-11-25 2021-11-25 Emergency Omayoaku, [facility] [id number] 16:20:00 16:55:00 [facility] 2021-07-31 2021-07-31 Travel [facility] [id number] [facility] 00:00:00 00:00:00 [facility] 2021-07-31 2021-07-31 Travel [facility] [id number] [facility] 00:00[facility]00 00:00:00 [facility] 2021-07-30 2021-07-30 Emergency ER Stone, Brii [facility] [id number] 19:14:00 21:58:00 [facility] 2021-07-30 2021-07-30 Emergency ER STONE, BRII [facility] Emergency [id number] [facility] 19:14:00 21:58:00 2021-07-30 2021-07-30 Emergency Stone, Brii [facility] [id number] 19:14:00 21:58:00 [facility] 2018-07-01 2018-07-01 Outpatient BAILEY Ham MHPL [id number] 18:27:00 22:12:00 Jazmin 01 [place] 2018-06-27 2018-06-29 Outpatient Hammonds, PL PL [id number] 20:48:00 19:05:00 Ugochi 04 Kianna 2017-12-30 2017-12-[address] [facility] [id number] 10:30:00 12:31:00 U 03 2016-10-04 2016-10-08 Outpatient Carrie, PL PL [id number] 13:28:00 15:10:00 Annette 02 Yasmin 2016-04-17 2016-04-17 Outpatient Savita, PL PL [id number] 10:11:00 13:54:00 Ambica 2015-07-17 2015-07-18 Outpatient Vijay Combs [facility] [id number] 14:28:00 12:05:00 Foster 2015-07-17 2015-07-17 Outpatient Alyson, [facility] [id number] 11:42:00 14:15:00 Nadim B 00 Results Test Description Test Time Test Comments Results Result Comments Source B-TYPE NATRIURETIC FACTOR (BNP) 2022-01-12 17:12:09 Test Item Value Reference Range Interpretation Comme nts B-TYPE NATRIURETIC PEPTIDE (BEAKER) (test code = 700) 69 pg/mL 0-100 [place] [employer] ID - [id number] METABOLIC [id number] 17:06:08 Test Item Value Reference Range Interpretation Comments TOTAL PROTEIN 6.3 gm/dL 6.0-8.5 (BEAKER) (test code = 770) ALBUMIN (BEAKER) 3.4 g/dL 3.5-5.0 L (test code = 1145) ALKALINE PHOSPHATASE 121 U/L 30-115 H (BEAKER) (test code = 346) BILIRUBIN TOTAL 0.3 mg/dL 0.1-1.2 (BEAKER) (test code = 377) SODIUM (BEAKER) (test 136 meq/L 135-148 code = 381) POTASSIUM (BEAKER) 4.2 meq/L 3.6-5.5 (test code = 379) CHLORIDE (BEAKER) 106 meq/L 98-106 (test code = 382) CO2 (BEAKER) (test 25 meq/L 20-29 code = 355) BLOOD UREA NITROGEN 19 mg/dL 10-26 (BEAKER) (test code = 354) CREATININE (BEAKER) 0.71 mg/dL 0.50-1.20 (test code = 358) GLUCOSE RANDOM 68 mg/dL 70-110 L (BEAKER) (test code = 652) CALCIUM (BEAKER) 9.4 mg/dL 8.5-10.5 (test code = 697) AST (SGOT) (BEAKER) 45 U/L 5-40 H (test code = 353) ALT (SGPT) (BEAKER) 37 U/L 5-50 (test code = 347) EGFR (BEAKER) (test 125 ESTIMATE D GFR IS code = 1092) mL/min/1.73 sq NOT ACCURA TE m CREATININE CLEARANCE IN PREDICTING GLOMERULAR FILTRATION RATE . ESTIMATED GFR I S NOT APPLICABLE FOR DIALYSIS PATIEN TS. Iron Carrier ID - [id number] ID - [id number] ID - [id number] ID - [id number] ID - [id number] ID - [id number] ID - [id number] ID - [id number] ID - SBCQY420Geydykcl ID - [id number] ID - SUUJT322Odxdatbc ID - [id number] ID - OSIZN495Xvztsgbm ID - [id number] ID - MMDOF122Ugylwczj ID - TQPCZ014Frrohqod ID - [id number] ID - [id number] ID - [id number] W/PLT COUNT & AUTO [id number] 16:49:25 Test Item Value Reference Range Interpretation Comments WHITE BLOOD CELL COUNT (BEAKER) 4.9 K/ L 4.0-10.0 (test code = 775) RED BLOOD CELL COUNT (BEAKER) 3.39 M/ L 4.20-5.80 L (test code = 761) HEMOGLOBIN (BEAKER) (test code = 11.1 GM/DL 13.0-16.8 L 410) HEMATOCRIT (BEAKER) (test code = 31.6 % 36.0-50.0 L 411) MEAN CORPUSCULAR VOLUME (BEAKER) 93.2 fL 82.0-99.0 (test code = 753) MEAN CORPUSCULAR HEMOGLOBIN 32.7 pg 27.0-33.0 (BEAKER) (test code = 751) MEAN CORPUSCULAR HEMOGLOBIN CONC 35.1 GM/DL 32.0-36.0 (BEAKER) (test code = 752) RED CELL DISTRIBUTION WIDTH 14.2 % 12.0-15.0 (BEAKER) (test code = 412) PLATELET COUNT (BEAKER) (test 149 K/CU MM 150-430 L code = 756) MEAN PLATELET VOLUME (BEAKER) 11.3 fL 6.0-11.5 (test code = 754) NUCLEATED RED BLOOD CELLS 0 /100 WBC 0-0 (BEAKER) (test code = 413) NEUTROPHILS RELATIVE PERCENT 66 % (BEAKER) (test code = 429) LYMPHOCYTES RELATIVE PERCENT 24 % (BEAKER) (test code = 430) MONOCYTES RELATIVE PERCENT 7 % (BEAKER) (test code = 431) EOSINOPHILS RELATIVE PERCENT 4 % (BEAKER) (test code = 432) BASOPHILS RELATIVE PERCENT 0 % (BEAKER) (test code = 437) NEUTROPHILS ABSOLUTE COUNT 3.21 K/ L 1.80-8.00 (BEAKER) (test code = 670) LYMPHOCYTES ABSOLUTE COUNT 1.15 K/ L 1.48-4.50 L (BEAKER) (test code = 414) MONOCYTES ABSOLUTE COUNT (BEAKER) 0.32 K/ L 0.00-1.30 (test code = 415) EOSINOPHILS ABSOLUTE COUNT 0.17 K/ L 0.00-0.50 (BEAKER) (test code = 416) BASOPHILS ABSOLUTE COUNT (BEAKER) 0.02 K/ L 0.00-0.20 (test code = 417) IMMATURE GRANULOCYTES-RELATIVE 0 % 0-0 PERCENT (BEAKER) (test code = 2801) - CTA CHEST FOR [id number] 18:27:00 [facility] 1985 Sex: M Name: VERÓNICA NUNN : 1985 Age/S: 36 / M [address] [place] Unit #: [id number] Loc: [place] [address] Phys: Zain David DO Acct: [id number] Dis Date: Status: REG ER PHONE #: [phone] Exam Date: 01/08/20221802 FAX #: Reason: evaluate for PE EXAMS: CPT: [id number] [place] [address] EXAM: - CTA CHEST FOR PE LOCATION: H57 HISTORY: 36 years-year old Male with evaluate for PE TECHNIQUE: Axial tomograms through the chest were obtained after intravenous contrast utilizing pulmonaryembolus protocol. Coronal and sagittal reformatted images are provided. At least one MIP sequence was provided. This exam was performed according to our departmental dose-optimization program, which in cludes automated exposure control, adjustment of the mA and/or kV according to patient size and/or use of iterative reconstruction technique. COMPARISON: None available time of interpretation. FINDINGS: Vasculature: No filling defects are seen in the pulmonary arteries to the segmental level. The pulmonary trunk and main pulmonary arteries are normal in caliber.The thoracic aorta is normal in caliberwithout dissection. Lungs: The lungs are clear. Pleura: No effusions or pneumothorax. Mediastinal: There is no pericardial effusion. The trachea is unremarkable. The esophagus is grossly unremarkable.Lymph nodes: There is no mediastinal, hilar, or axillary adenopathy. Bones: No acute osseous findings. Soft tissues: Severe anasarca. Visualized abdomen: Unremarkable. IMPRESSION: 1. No pulmonary embolism to the segmental level. 2. Severe anasarca. PAGE 1 Signed Report (CONTINUED) Name: VERÓNICA NUNN : 1985 Age/S: 36 / M [address] [place] Unit #: [id number] Loc: [place] [address] Phys: Zain David DO Acct: [id number] Dis Date: Status: REG ER PHONE #: [phone] Exam Date: 01/08/2022 1803 FAX #: Reason: evaluate for PE EXAMS: CPT: [id number] [place] [address] (Continued) at 1827 Reported and signed by: Ba Anaya M.D. CC: Zain David DO Technologist:Abram Prasad, RT(R) CTDI: DLP: Trnscb Date/Time: 01/08/2022 (1826) [email or web address] Orig Print D/T: S: 01/08/2022 (1829) PAGE 2 Signed Report- DUP VEIN [id number] 16:52:00 [facility] 1985 Sex: M Name: VERÓNICA NUNN [facility] : 1985 Age/S: 36 / M [address] [place] Unit #: [id number] Loc: [place] [address] Phys: Zain David DO Acct: [id number] Dis Date: Status: REG ER PHONE #: [phone] Exam Date: 01/08/2022 1648 FAX #: Reason: swelling EXAMS: CPT: [id number] DUP VEIN COMFORT 69893 EXAM: -DUP VEIN COMFORT LOCATION: H65 HISTORY: swelling TECHNIQUE: Grayscale real-time B-mode imaging with color flow and spectral flow Doppler analysis was performed of the bilateral lower extremities. COMPARISON: None available. FINDINGS: There is normal compressibility with no evidence of thrombus in the visualized venous structures of the bilateral lower extremities. IMPRESSION: No DVT in the visualized venous structures of the bilateral lower extremities. at 1652 Reported and signed by: Rolo Suero D.O. CC: Zain David DO Technologist: Kianna Cardenas Trnscb Date/Time: 01/08/2022 (1651) [email or web address] PAGE 1 Signed Report Name: [facility] 1985 Age/S: 36 / M [address] [place] Unit #: [id number] Loc: [place], [place] [address]Dtqg: Zain David DO Acct: [id number] Dis Date: Status: REG ER PHONE #: [phone] Exam Date: 01/08/2022 1648 FAX #: Reason: swelling EXAMS: CPT: [id number] DUP VEIN COMFORT 82200 (Continued) Orig Print D/T: S: 01/08/2022 (1654) Probe: PAGE 2 Signed ReportTROP-I HIGH [id number] 15:07:00 Test Item Value Reference Range Interpretation Comments TROP-I HIGH 4.6 ng/L 0-54 N CAUTION: Units of the SENSITIVITY (test current te st methodology code = TROPIHS) (ng/L) diffe rfrom the prior test meth odology (ng/mL) by a fa ctor of 1000. 99t h Percentile Uppe r Reference Limit (URL):Fem ales: 34 ng/LMales: 54 n g/L In order to distin guish acute elevations of h igh sensitivitytrop onin from other clinical conditions, the FourthUnive rsal Definition of M yocardial Infarction stressesclinica l assessment and the demonstration o f a rise and/orfall in s erial troponin result s above the URL. Results fr om different metho dologies should not be c omparedto one another as quantitative re sults and URLs may varyby method. Completed by Nursing: NOBASIC METABOLIC [id number] 15:07:00 Test Item Value Reference Range Interpretation Comments SODIUM (test code = NA) 138 mmol/L 134-147 N POTASSIUM (test code = 3.7 mmol/L 3.4-5.0 N K) CHLORIDE (test code = 108 mmol/L 100-108 N CL) CARBON DIOXIDE (test 26 mmol/L 21-32 N code = CO2) ANION GAP (test code = 4.0 GAP calc 4.0-15.0 N GAP) GLUCOSE (test code = 68 MG/DL 70-110 L GLU) BLOOD UREA NITROGEN 25 MG/DL 7-18 H (test code = BUN) GLOMERULAR FILTRATION >=60 max estimate >60 RATE (test code = GFR) estGFR CREATININE (test code = 0.8 MG/DL 0.8-1.3 N CREAT) CALCIUM (test code = CA) 8.7 MG/DL 8.5-10.1 N Completed by Nursing: NONT PRO-BRAIN NATRIURETIC [id number] 15:07:00 Test Item Value Reference Range Interpretation Comments NT PRO-BRAIN NATRIURETIC PEPTI 163 PG/ML 0-100 H (test code = PROBNP) Completed by Nursing: [id number] 15:04:00 Test Item Value Reference Range Interpretation Comments D-DIMER (test 1596 ng/mLFEU 215-500 HH THROMBOSIS AN D/OR PULMONARY code = EMBOLISM AND TH E CLINICAL DDIMER) CUT-OFF VALUE F OR EXCLUSION (500 ng/mL FEU) OF THESE CONDITIONSIS VA LIDATED BY THE MANUFACTURE R OF THE METHOD. A NEGAT REANNA D-DIMER RESULT WHEN COM BINED WITH A CLINICALASSESSM ENT OF LOW PRETEST PROBABI LITY HAS BEEN SHOWN TO H AVEA HIGH NEGATIVE PREDIC TIVE VALUE OF DVT OR PE. D -DIMER VALUES >500 ng/ mL FEU ARE NOT DIAGNOSTIC FOR DVT, PEor DIC WITHOU T OTHER CONFIRMATORY TE STS AND APPROPRIATECLIN ICAL EUALUATIONS. HEPATIC FUNCTION [id number] 14:58:00 Test Item Value Reference Range Interpretation Comments TOTAL PROTEIN (test code = PROT) 5.8 G/DL 6.4-8.2 L ALBUMIN (test code = ALB) 2.8 G/DL 3.4-5.0 L BILIRUBIN TOTAL (test code = 0.20 MG/DL 0.2-1.2 N BILT) BILIRUBIN DIRECT (test code = < 0.10 MG/DL 0.00-0.30 N BILD) BILIRUBIN INDIRECT (test code = 0.10 MG/DL 0.2-1.2 L BILIND) SGOT/AST (test code = AST) 31 Unit/L 15-37 N SGPT/ALT (test code = ALT) 33 Unit/L 12-78 N ALKALINE PHOSPHATASE TOTAL (test 127 Unit/L 50-136 N code = ALKP) CBC W/O [id number] 14:41:00 Test Item Value Reference Range Interpretation Comments WHITE BLOOD CELL (test code = WBC) 3.9 K/mm3 3.5-11.0 N RED BLOOD CELL (test code = RBC) 3.42 M/mm3 4.70-6.10 L HEMOGLOBIN (test code = HGB) 10.7 G/DL 12.3-15.9 L HEMATOCRIT (test code = HCT) 32.7 % 35.8-46.7 L MEAN CELL VOLUME (test code = MCV) 95.6 Fl 86.3-98.9 N MEAN CELL HGB (test code = MCH) 31.3 pg 28.9-34.4 N MEAN CELL HGB CONCETRATION (test 32.7 G/DL 32.1-34.5 N code = MCHC) RED CELL DISTRIBUTION WIDTH (test 14.0 SD 11.5-14.5 N code = RDW) PLATELET COUNT (test code = PLT) 172 K/mm3 150-450 N MEAN PLATELET VOLUME (test code = 10.40 fL 7.0-9.6 H MPV) - XR CHEST 1 [id number] 14:24:00 [facility] : 1985 Sex: M Name: VERÓNICA NUNN [place] : 1985 Age/S: 36 / M [address] [place] Unit #: [id number] Loc: [place] [address] Phys: Zain David DO Acct: [id number] Dis Date: Status: REG ER PHONE #: [phone] Exam Date: 01/08/2022 1418 FAX #: Reason: chest pain EXAMS: CPT: [id number] XR CHEST 1 V 82005 Fluoro Time: DAP (Gy m2): Air Kerma (mGy): Site ID: [id number] HISTORY: Chest pain COMPARISON: None FINDINGS:Patchy bibasilar infiltrates may reflect pneumonia or atelectasis. The heart and pulmonary vasculature is normal. Osseous structures are unremarkable. IMPRESSION: Patchy bibasilar infiltrates may reflect pneumonia or atelectasis at 1424 Reported and signed by: Raymundo Delacruz M.D. CC: Zain David DO PAGE 1 Signed Report Name: VERÓNICA NUNN [place] : 1985 Age/S: 36 / M [address] [place] Unit #: [id number] Loc: [place], [place] [address]Evph: MaurijoseZain Acct: [id number] Dis Date: Status: REG ER PHONE #: [phone] Exam Date: 02/2022 1418 FAX #: Reason: chest pain EXAMS: CPT: [id number] XR CHEST 1 V 78940 Fluoro Time: DAP (Gy m2): Air Kerma (mGy): (Continued) Technologist: Vladislav Moreno, RT(R)(CT) Trnscb Date/Time: 01/08/2022 (1420) [email or web address] Orig Print D/T: S: 01/08/2022 (8689) PAGE 2 Signed ReportPOCT GLUCOSE POC docked [id number] 10:55:52 Test Item Value Reference Range Interpretation Comments Glucose POC (test code = 59404270) 79 mg/dL 74-106 Lab Interpretation (test code = Normal 31594-5) [facility] [id number] 10:55:52 Test Item Value Reference Range Interpretation Comments Glucose POC (test code = 88863612) 79 mg/dL 74-106 Lab Interpretation (test code = Normal 79070-9) [facility] GLUCOSE POC docked [id number] 10:55:52 Test Item Value Reference Range Interpretation Comments Glucose POC (test code = 79112025) 79 mg/dL 74-106 Lab Interpretation (test code = Normal 88566-3) [facility] GLUCOSE POC docked [id number] 10:55:52 Test Item Value Reference Range Interpretation Comments Glucose POC (test code = 21190611) 79 mg/dL 74-106 Lab Interpretation (test code = Normal 21407-2) [place] [address] Lead [id number] 14:05:191 LEAD EKG FOR [facility] Test Date: 1991-09-70Aps Name: VERÓNICA ZAMORAJim Department: 5CMSPatient ID: [id number] Room: 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: 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: 1985 Requested By: MISAEL Lacyer Number: [id number] Reading MD: Rosa Santa MeasurementsIntervals [place] Rate: 90 P: 73PR: 142 QRS: 90QRSD: 104 T: 69QT: 345 QTc: [address] ELEVATION [0.05+ mV ST ELEVATION]Electronically Signed On 12-14-2021 14:05:45 CDT by [place] [address] Lead [id number] 14:05:1912 LEAD EKG FOR [facility] Test Date: 3834-11-33Gix Name: VERÓNICA ZAMORAJim Department: 5CMSPatient ID: [id number] Room: Gender: M 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: 1985 Requested By: MISAEL Lacyer Number: [id number] Reading MD: Rosa Santa MeasurementsIntervals [place] Rate: 90 P: 73PR: 142 QRS: 90QRSD: 104 T: 69QT: 345 QTc: 393 Interpretive Stat[address] R[address] ST ELEVATION [0.05+ mV ST ELEVATION]Electronically Signed On 12-14-2021 14:05:45 CDT by [facility] Lead [id number] 14:05:1912 LEAD EKG FOR [facility] Test Date: 2244-28-81Jnq Name: VERÓNICA CLARK Department: 5CMSPatient ID: [id number] Room: 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: 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: 1985 Requested By: MISAEL VELÁZQUEZ EOrder Number: [id number] Reading MD: Rosa Santa MeasurementsIntervals [place] Rate: 90 P: 73PR: 142 QRS: 90QRSD: 104 T: 69QT: 345 QTc: 393 Interpret[address] Stat[address] ELEVATION [0.05+ mV ST ELEVATION]Electronically Signed On 12-14-2021 14:05:45 CDT [facility] Lead [id number] 14:05:1912 LEAD EKG FOR [facility] Test Date: 2885-23-55Dvy Name: VERÓNICA CLARK Department: 5CMSPatient ID: [id number] Room: 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: 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: 1985 Requested By: MISAEL HUIZARrder Number: [id number] Reading MD: Rosa Santa MeasurementsIntervals [place] Rate: 90 P: 73PR: 142 QRS: 90QRSD: 104 T: 69QT: 345 QTc: 393 Interpretive StatementsSIN[address] RHY[address] ST ELEVATION [0.05+ mV ST ELEVATION]Electronically Signed On 12-14-2021 14:05:45 CDT by [facility] HospitalCure[facility]V [facility]+2 Ab+HIV1 p24 Ag SerPl Ql [id number] 11:54:50 Test Item Value Reference Range Interpretation Comments HIV 1+2 Ab+HIV1 p24 Ag SerPl Ql [place] NEGATIVE Negative (test code = 18444-6) Coronavirus, CoVID-19, [id number] 02:25:42 Test Item Value Reference Interpretation Comments Range COVID-19 Not Detected Not Detected INTERPRETATION: (SARS-COV-2) (test No detect able code = 08726-8) levels of SARS-CoV-2 Coronavirus (COVID-19) were present in this patient's sampl e by this test. A not detected result does not exclude the possibility of active infectio n with this virus due to other factors that ma y affect the results such as a poorly collected sample, viral titers below th e limit of detection of th e assay, and the infrequent possibility of inhibitors in the sample. Thi s result should b e interpreted in conjunction wit h clinical, radiographic, and other laboratory findings and should not be used as the mylene e indicator of active infectio n with SARS-CoV-2 Coronavirus (COVID-19). BRISA (test code = COMMENT: This [employer] BRISA) real-time reverse transcriptase polymerase chain reaction (RT-PCR) test rapidly detects SARS-CoV-2 (COVID-19) virus from nasopharyngeal and nasal swab specimens. In accordance with the FDA's guidance document "Policy for Diagnostic Tests for Coronavirus Disease-2019 during the Public Health Emergency", this test was developed, and its performance characteristics were verified by the [facility] molecular diagnostics laboratory and is authorized for clinical diagnostic use. This laboratory is certified under the Clinical Laboratory Improvement Amendments (CLIA) as qualified to perform high complexity clinical laboratory testing. Lab Interpretation Normal (test code = 05099-3) [facility] [id number] 02:25:42 Test Item Value Reference Interpretation Comments Range COVID-19 Not Detected Not Detected INTERPRETATION: (SARS-COV-2) (test No detect able code = 73403-9) levels of SARS-CoV-2 Coronavirus (COVID-19) were present in this patient's sampl e by this test. A not detected result does not exclude the possibility of active infectio n with this virus due to other factors that ma y affect the results such as a poorly collected sample, viral titers below th e limit of detection of th e assay, and the infrequent possibility of inhibitors in the sample. Thi s result should b e interpreted in conjunction wit h clinical, radiographic, and other laboratory findings and should not be used as the mylene e indicator of active infectio n with SARS-CoV-2 Coronavirus (COVID-19). BRISA (test code = COMMENT: This [employer] BRISA) real-time reverse transcriptase polymerase chain reaction (RT-PCR) test rapidly detects SARS-CoV-2 (COVID-19) virus from nasopharyngeal and nasal swab specimens. In accordance with the FDA's guidance document "Policy for Diagnostic Tests for Coronavirus Disease-2019 during the Public Health Emergency", this test was developed, and its performance characteristics were verified by the [facility] molecular diagnostics laboratory and is authorized for clinical diagnostic use. This laboratory is certified under the Clinical Laboratory Improvement Amendments (CLIA) as qualified to perform high complexity clinical laboratory testing. Lab Interpretation Normal (test code = 90261-9) Talha Dougherty, CoVID-19, [id number] 02:25:42 Test Item Value Reference Interpretation Comments Range COVID-19 Not Detected Not Detected INTERPRETATION: (SARS-COV-2) (test No detect able code = 26781-1) levels of SARS-CoV-2 Coronavirus (COVID-19) were present in this patient's sampl e by this test. A not detected result does not exclude the possibility of active infectio n with this virus due to other factors that ma y affect the results such as a poorly collected sample, viral titers below th e limit of detection of th e assay, and the infrequent possibility of inhibitors in the sample. Thi s result should b e interpreted in conjunction wit h clinical, radiographic, and other laboratory findings and should not be used as the mylene e indicator of active infectio n with SARS-CoV-2 Coronavirus (COVID-19). BRISA (test code = COMMENT: This [employer] BRISA) real-time reverse transcriptase polymerase chain reaction (RT-PCR) test rapidly detects SARS-CoV-2 (COVID-19) virus from nasopharyngeal and nasal swab specimens. In accordance with the FDA's guidance document "Policy for Diagnostic Tests for Coronavirus Disease-2019 during the Public Health Emergency", this test was developed, and its performance characteristics were verified by the [facility] molecular diagnostics laboratory and is authorized for clinical diagnostic use. This laboratory is certified under the Clinical Laboratory Improvement Amendments (CLIA) as qualified to perform high complexity clinical laboratory testing. Lab Interpretation Normal (test code = 34005-9) Talha Dougherty, CoVID-19, [id number] 02:25:42 Test Item Value Reference Interpretation Comments Range COVID-19 Not Detected Not Detected INTERPRETATION: (SARS-COV-2) (test No detect able code = 22031-2) levels of SARS-CoV-2 Coronavirus (COVID-19) were present in this patient's sampl e by this test. A not detected result does not exclude the possibility of active infectio n with this virus due to other factors that ma y affect the results such as a poorly collected sample, viral titers below th e limit of detection of th e assay, and the infrequent possibility of inhibitors in the sample. Thi s result should b e interpreted in conjunction wit h clinical, radiographic, and other laboratory findings and should not be used as the mylene e indicator of active infectio n with SARS-CoV-2 Coronavirus (COVID-19). BRISA (test code = COMMENT: This [employer]ept[employer] BRISA) real-time reverse transcriptase polymerase chain reaction (RT-PCR) test rapidly detects SARS-CoV-2 (COVID-19) virus from nasopharyngeal and nasal swab specimens. In accordance with the FDA's guidance document "Policy for Diagnostic Tests for Coronavirus Disease-2019 during the Public Health Emergency", this test was developed, and its performance characteristics were verified by the [facility] molecular diagnostics laboratory and is authorized for clinical diagnostic use. This laboratory is certified under the Clinical Laboratory Improvement Amendments (CLIA) as qualified to perform high complexity clinical laboratory testing. Lab Interpretation Normal (test code = 25230-2) [facility]-CoV-2 RNA Resp Ql [id number] 02:25:42 Test Item Value Reference Range Interpretation Comments Hospitalized? (test No code = 12643-4) ICU? (test code = No 16216-0) Symptomatic as defined No by CDC? (test code = 02790-7) Employed in No Healthcare? (test code = 52418-6) Resident in a No congregate care setting (including nursing homes, residential care for people with intellectual and developmental disabilities, psychiatric treatment facilities, group homes, board and care homes, homeless usp, foster care or other): (test code = 91772-0) SARS-CoV-2 RNA Resp Ql NOT DETECTED Not Detected INTER PRETATION: No YOSHI+probe (test code = detec table levels 17610-6) of SARS-CoV-2 Coronavirus (COVID-19) were present in this patient's sampl e by this test. A no t detected result does not exclud e the possibility of active infectio n with this virus due to other factor s that may affect the results such as a poorly collecte d sample, viral titers below th e limit of detect ion of the assay, a nd the infrequent possibility of inhibitors in t he sample. This re sult should be interpreted in conjunction wit h clinical, radiographic, a nd other laborator y findings and sh ould not be used as the sole indicator of active infectio n with SARS-CoV-2 Coronavirus (COVID-19). COMMENT: This [employer]epti real-time reverse transcriptase polymerase chain reaction (RT-PCR) test rapidly detects SARS-CoV-2 (COVID-19) virus from nasopharyngeal and nasal swab specimens. In accordance with the FDA's guidance document "Policy for Diagnostic Tests for Coronavirus Disease-2019 during the Public Health Emergency", this test was developed, and its performance characteristics were verified by the [facility] molecular diagnostics laboratory and is authorized for clinical diagnostic use. This laboratory is certified under the Clinical Laboratory Improvement Amendments (CLIA) as qualified to perform high complexity clinical laboratory testing.POCT BMP POC docked device 2021-12-02 20:33:07 Test Item Value Reference Range Interpretation Comments Sodium POC (test code = 134 mmol/L 136-145 L 16583989) Potassium POC (test code 4.2 mmol/L 3.5-5.1 = 47048591) Chloride POC (test code 103 mmol/L 98-107 = 83827434) TCO2 POC (test code = 28 mmol/L 21-32 Physic alden Notified 06631148) Urea Nitrogen POC (test 12 mg/dL 7-18 code = 31352432) Glucose POC (test code = 76 mg/dL 74-106 40724182) Hemoglobin POC (test 7.1 g/dL 12-16 L code = 50072007) Hematocrit POC (test 21.0 % 37.0-47.0 L code = 40855292) Lab Interpretation (test Abnormal code = 78266-5) [facility] BMP POC docked [id number] 20:33:07 Test Item Value Reference Range Interpretation Comments Sodium POC (test code = 134 mmol/L 136-145 L 20861641) Potassium POC (test code 4.2 mmol/L 3.5-5.1 = 58374375) Chloride POC (test code 103 mmol/L 98-107 = 60111558) TCO2 POC (test code = 28 mmol/L 21-32 Physic alden Notified 42440633) Urea Nitrogen POC (test 12 mg/dL 7-18 code = 34602553) Glucose POC (test code = 76 mg/dL 74-106 66870131) Hemoglobin POC (test 7.1 g/dL 12-16 L code = 13133293) Hematocrit POC (test 21.0 % 37.0-47.0 L code = 11808628) Lab Interpretation (test Abnormal code = 07886-8) [facility] BMP POC docked [id number] 20:33:07 Test Item Value Reference Range Interpretation Comments Sodium POC (test code = 134 mmol/L 136-145 L 54768728) Potassium POC (test code 4.2 mmol/L 3.5-5.1 = 45239713) Chloride POC (test code 103 mmol/L 98-107 = 45565150) TCO2 POC (test code = 28 mmol/L -32 Physic alden Notified 93492946) Urea Nitrogen POC (test 12 mg/dL 7-18 code = 71991126) Glucose POC (test code = 76 mg/dL 74-106 48828298) Hemoglobin POC (test 7.1 g/dL 12-16 L code = 88846945) Hematocrit POC (test 21.0 % 37.0-47.0 L code = 60128724) Lab Interpretation (test Abnormal code = 32709-7) [facility] POC docked [id number] 20:33:07 Test Item Value Reference Range Interpretation Comments Sodium POC (test code = 134 mmol/L 136-145 L 63116606) Potassium POC (test code 4.2 mmol/L 3.5-5.1 = 60534659) Chloride POC (test code 103 mmol/L 98-107 = 02658992) TCO2 POC (test code = 28 mmol/L 21-32 Physic alden Notified 13928640) Urea Nitrogen POC (test 12 mg/dL 7-18 code = 95075141) Glucose POC (test code = 76 mg/dL 74-106 37113369) Hemoglobin POC (test 7.1 g/dL 12-16 L code = 75369528) Hematocrit POC (test 21.0 % 37.0-47.0 L code = 78063761) Lab Interpretation (test Abnormal code = 82835-8) [facility] [id number] 20:32:51 Test Item Value Reference Range Interpretation Comments Creatinine POC (test 0.5 mg/dL 0.6-1.3 L Physici an Notified code = 31805293) eGFR If non- Am >120 See_Comment [Aut omated message] (test code = 24197118) The s ystem which generated this result transmit gregory reference range : >=90 mL/min/1.7 3 m2. The reference r sravanthi was not used to interpret this result as normal/abnormal . eGFR If Am (test >120 See_Comment [A utomated message] code = 75170518) The system which generated this result transmit gregory reference range : >=90 mL/min/1.7 3 m2. The reference r sravanthi was not used to interpret this result as normal/abnormal . Lab Interpretation (test Abnormal code = 43307-4) [facility] [id number] 20:32:51 Test Item Value Reference Range Interpretation Comments Creatinine POC (test 0.5 mg/dL 0.6-1.3 L Physici an Notified code = 02935235) eGFR If non- Am >120 See_Comment [Aut omated message] (test code = 85513675) The s ystem which generated this result transmit gregory reference range : >=90 mL/min/1.7 3 m2. The reference r sravanthi was not used to interpret this result as normal/abnormal . eGFR If Am (test >120 See_Comment [A utomated message] code = 92378464) The system which generated this result transmit gregory reference range : >=90 mL/min/1.7 3 m2. The reference r sravanthi was not used to interpret this result as normal/abnormal . Lab Interpretation (test Abnormal code = 89345-0) [facility] [id number] 20:32:51 Test Item Value Reference Range Interpretation Comments Creatinine POC (test 0.5 mg/dL 0.6-1.3 L Physici an Notified code = 70136972) eGFR If non- Am >120 See_Comment [Aut omated message] (test code = 62951535) The s ystem which generated this result transmit gregory reference range : >=90 mL/min/1.7 3 m2. The reference r sravanthi was not used to interpret this result as normal/abnormal . eGFR If Am (test >120 See_Comment [A utomated message] code = 83042878) The system which generated this result transmit gregory reference range : >=90 mL/min/1.7 3 m2. The reference r sravanthi was not used to interpret this result as normal/abnormal . Lab Interpretation (test Abnormal code = 77605-1) [facility] CREATININE POC docked [id number] 20:32:51 Test Item Value Reference Range Interpretation Comments Creatinine POC (test 0.5 mg/dL 0.6-1.3 L Physici an Notified code = 06734131) eGFR If non- Am >120 See_Comment [Aut omated message] (test code = 49638844) The s ystem which generated this result transmit gregory reference range : >=90 mL/min/1.7 3 m2. The reference r sravanthi was not used to interpret this result as normal/abnormal . eGFR If Am (test >120 See_Comment [A utomated message] code = 65287920) The system which generated this result transmit gregory reference range : >=90 mL/min/1.7 3 m2. The reference r sravanthi was not used to interpret this result as normal/abnormal . Lab Interpretation (test Abnormal code = 88374-9) [id number] 20:34:31 Test Item Value Reference Interpretation Comments Range Protime (test code = 12.2 See_Comment H Final 5902-2) Information (Auto Output) [Automated message] The system which generated this result transmitted reference range : 9.3 - 12.0 seconds. The reference range was not used to interpret this result as normal/abnormal . INR (test code = 1.11 See_Comment Final 6301-6) Information (Auto Output) [Automated message] The system which generated this result transmitted reference range : <=5.90. The reference range was not used to interpret this result as normal/abnormal . BRISA (test code = RECOMMENDED BRISA) COUMADIN/WARFARIN INR THERAPY RANGESSTANDARD DOSE: 2.0 - 3.0 Includes: PROPHYLAXIS for venous thrombosis, systemic embolization; TREATMENT for venous thrombosis and/or pulmonary embolus.HIGH RISK: Target INR is 2.5-3.5 for patients with mechanical heart valves. Lab Interpretation Abnormal (test code = 65490-8) [id number] 20:34:31 Test Item Value Reference Interpretation Comments Range Protime (test code = 12.2 See_Comment H Final 5902-2) Information (Auto Output) [Automated message] The system which generated this result transmitted reference range : 9.3 - 12.0 seconds. The reference range was not used to interpret this result as normal/abnormal . INR (test code = 1.11 See_Comment Final 6301-6) Information (Auto Output) [Automated message] The system which generated this result transmitted reference range : <=5.90. The reference range was not used to interpret this result as normal/abnormal . BRISA (test code = RECOMMENDED BRISA) COUMADIN/WARFARIN INR THERAPY RANGESSTANDARD DOSE: 2.0 - 3.0 Includes: PROPHYLAXIS for venous thrombosis, systemic embolization; TREATMENT for venous thrombosis and/or pulmonary embolus.HIGH RISK: Target INR is 2.5-3.5 for patients with mechanical heart valves. Lab Interpretation Abnormal (test code = 13560-4) [facility][id number] 20:34:31 Test Item Value Reference Interpretation Comments Range Protime (test code = 12.2 See_Comment H Final 5902-2) Information (Auto Output) [Automated message] The system which generated this result transmitted reference range : 9.3 - 12.0 seconds. The reference range was not used to interpret this result as normal/abnormal . INR (test code = 1.11 See_Comment Final 6301-6) Information (Auto Output) [Automated message] The system which generated this result transmitted reference range : <=5.90. The reference range was not used to interpret this result as normal/abnormal . BRISA (test code = RECOMMENDED BRISA) COUMADIN/WARFARIN INR THERAPY RANGESSTANDARD DOSE: 2.0 - 3.0 Includes: PROPHYLAXIS for venous thrombosis, systemic embolization; TREATMENT for venous thrombosis and/or pulmonary embolus.HIGH RISK: Target INR is 2.5-3.5 for patients with mechanical heart valves. Lab Interpretation Abnormal (test code = 89273-1) [facility][id number] 20:34:31 Test Item Value Reference Interpretation Comments Range Protime (test code = 12.2 See_Comment H Final 5902-2) Information (Auto Output) [Automated message] The system which generated this result transmitted reference range : 9.3 - 12.0 seconds. The reference range was not used to interpret this result as normal/abnormal . INR (test code = 1.11 See_Comment Final 6301-6) Information (Auto Output) [Automated message] The system which generated this result transmitted reference range : <=5.90. The reference range was not used to interpret this result as normal/abnormal . BRISA (test code = RECOMMENDED BRISA) COUMADIN/WARFARIN INR THERAPY RANGESSTANDARD DOSE: 2.0 - 3.0 Includes: PROPHYLAXIS for venous thrombosis, systemic embolization; TREATMENT for venous thrombosis and/or pulmonary embolus.HIGH RISK: Target INR is 2.5-3.5 for patients with mechanical heart valves. Lab Interpretation Abnormal (test code = 67152-5) [facility]/[id number] 20:34:31 Test Item Value Reference Range Interpretation Comments PROTIME (BEAKER) 12.2 seconds 9.3-12.0 H Final Infor mation (test code = 759) (Auto Outp ut) INR (BEAKER) (test 1.11 See_Comment Final Inf ormation code = 370) (Auto Output) [Automated mess age] The system [employer] h generated this result transmitted ref erence range: <=5.90. The reference range was not used to int erpret this result as normal/abnormal . RECOMMENDED COUMADIN/WARFARIN INR THERAPY RANGESSTANDARD DOSE: 2.0 - 3.0 Includes: PROPHYLAXIS for venous thrombosis, systemic embolization; TREATMENT for venous thrombosis and/or pulmonary embolus.HIGH RISK: Target INR is 2.5-3.5 for patients with mechanical heart valves.CT, [id number] 20:32:00Unlisted Reason for Exam - Click Yes and Enter Reason Below->NoIs this for enterography?->NoWill this procedure require oral contrast?->No [facility] : 1985 Sex: MFINAL REPORT TECHNIQUE: CT of the abdomen and pelvis WITH intravenous contrast and WITHOUToral contrast. Dose modulation, iterative reconstruction, and/or weight-based adjustment of the mA/kV was utilized to reduce the radiation dose to as low as reasonably achievable. INDICATION: Abdominalpain. COMPARISON: None. FINDINGS: LOWER THORAX: Unremarkable. HEPATOBILIARY: No focal hepatic lesions. Gallbladder is unremarkable. No biliary ductal dilatation.SPLEEN: No splenomegaly.PANCREAS: No focal masses or ductal dilatation. ADRENALS: No adrenal nodules.KIDNEYS/URETERS: No hydronephrosis, stones, or solid mass lesions.PELVIC ORGANS/BLADDER: Unremarkable. PERITONEUM/RETROPERITONEUM: No free air or fluid.LYMPH NODES: No lymphadenopathy.VESSELS: Unremarkable. GI TRACT: Small bowel loops are normal in caliber without evidence of small bowel obstruction.. Large volume stool in the colon. Normal appendix. BONES AND SOFT TISSUES: Degenerative changes in the spine. No suspicious osseous abnormality.. IMPRESSION:Large volume stool in the colon. Correlate for history of constipation. Otherwise no acute intra-abdominal or intrapelvic abnormality.. Signed: Mary Khoury MDReport Verified Date/Time: 07/30/2021 20:32:18 Reading Location: [address] Reading Room Basic metabolic panel (Na, K+, Cl, CO2, Glu, Ca, BUN, Cr)2021-07-30 20:00:22 Test Item Value Reference Range Interpretation Comments Sodium (test code = 135 meq/L 277-853 6296-2) Potassium (test code = 4.2 meq/L 3.6-5.5 2823-3) Chloride (test code = 103 meq/L 98-106 2075-0) CO2 (test code = 24 meq/L -2028-03) BUN (test code = 8 mg/dL 10-26 L 3094-0) Creatinine (test code 0.75 mg/dL 0.50-1.20 = 2160-0) Glucose (test code = 77 mg/dL 70-110 2345-7) Calcium (test code = 9.1 mg/dL 8.5-10.5 58236-9) EGFR (test code = 118 mL/min/1.73 [place] [address]-3) NOT ACCURATE CREATININE CLEARANCE IN PREDICTING GLOMERULAR FILTRATION RATE . ESTIMATED GFR I S NOT APPLICABLE FOR DIALYSIS PATIENTS. BRISA (test code = BRISA) [employer] ID - [id number] r ID - [id number] r ID - [id number] r ID - [id number] r ID - [id number] r ID - [id number] r ID - [id number] r ID - [id number] r ID - [id number] r ID - [id number] r ID - [id number] r ID - [id number] Lab Interpretation Abnormal (test code = 31858-3) [facility] (Na, K+, Cl, CO2, Glu, Ca, BUN, Cr)2021-07-30 20:00:22 Test Item Value Reference Range Interpretation Comments Sodium (test code = 135 meq/L 156-429 8969-2) Potassium (test code = 4.2 meq/L 3.6-5.5 2823-3) Chloride (test code = 103 meq/L 98-106 5-0) CO2 (test code = 24 meq/L -2028-03) BUN (test code = 8 mg/dL 10-26 L 3094-0) Creatinine (test code 0.75 mg/dL 0.50-1.20 = 2160-0) Glucose (test code = 77 mg/dL 70-110 2345-7) Calcium (test code = 9.1 mg/dL 8.5-10.5 97131-4) EGFR (test code = 118 mL/min/1.73 [place] [address]-1) NOT ACCURATE CREATININE CLEARANCE IN PREDICTING GLOMERULAR FILTRATION RATE . ESTIMATED GFR I S NOT APPLICABLE FOR DIALYSIS PATIENTS. BRISA (test code = BRISA) [employer] ID - [id number] r ID - [id number] r ID - [id number] r ID - [id number] r ID - [id number] r ID - [id number] r ID - [id number] r ID - [id number] r ID - [id number] r ID - [id number] r ID - [id number] r ID - [id number] Lab Interpretation Abnormal (test code = 08977-4) [facility] (Na, K+, Cl, CO2, Glu, Ca, BUN, Cr)2021-07-30 20:00:22 Test Item Value Reference Range Interpretation Comments Sodium (test code = 135 meq/L 450-006 2496-2) Potassium (test code = 4.2 meq/L 3.6-5.5 2823-3) Chloride (test code = 103 meq/L 98-106 2075-0) CO2 (test code = 24 meq/L -29 2027-9) BUN (test code = 8 mg/dL 10-26 L 3094-0) Creatinine (test code 0.75 mg/dL 0.50-1.20 = 2160-0) Glucose (test code = 77 mg/dL 70-110 2345-7) Calcium (test code = 9.1 mg/dL 8.5-10.5 54066-7) EGFR (test code = 118 mL/min/1.73 [place] [address]-9) NOT ACCURATE CREATININE CLEARANCE IN PREDICTING GLOMERULAR FILTRATION RATE . ESTIMATED GFR I S NOT APPLICABLE FOR DIALYSIS PATIENTS. BRISA (test code = BRISA) [employer] ID - [id number] r ID - [id number] r ID - [id number] r ID - [id number] r ID - [id number] r ID - [id number] r ID - [id number] r ID - [id number] r ID - [id number] r ID - [id number] r ID - [id number] r ID - [id number] Lab Interpretation Abnormal (test code = 32258-6) [facility] metabolic panel (Na, K+, Cl, CO2, Glu, Ca, BUN, Cr)2021-07-30 20:00:22 Test Item Value Reference Range Interpretation Comments Sodium (test code = 135 meq/L 009-296 5526-2) Potassium (test code = 4.2 meq/L 3.6-5.5 2823-3) Chloride (test code = 103 meq/L 98-106 2075-0) CO2 (test code = 24 meq/L -29 8-9) BUN (test code = 8 mg/dL 10-26 L 3094-0) Creatinine (test code 0.75 mg/dL 0.50-1.20 = 2160-0) Glucose (test code = 77 mg/dL 70-110 2345-7) Calcium (test code = 9.1 mg/dL 8.5-10.5 93226-5) EGFR (test code = 118 mL/min/1.73 sq m [facility] [place] [address]-9) NOT ACCURATE CREATININE CLEARANCE IN PREDICTING GLOMERULAR FILTRATION RATE . ESTIMATED GFR I S NOT APPLICABLE FOR DIALYSIS PATIENTS. BRISA (test code = BRISA) [employer] ID - [id number] r ID - [id number] r ID - [id number] r ID - [id number] r ID - [id number] r ID - [id number] r ID - [id number] r ID - [id number] r ID - [id number] r ID - [id number] r ID - [id number] r ID - [id number] Lab Interpretation Abnormal (test code = 92369-5) [facility] METABOLIC [id number] 20:00:22 Test Item Value Reference Range Interpretation Comments SODIUM (BEAKER) 135 meq/L 135-148 (test code = 381) POTASSIUM (BEAKER) 4.2 meq/L 3.6-5.5 (test code = 379) CHLORIDE (BEAKER) 103 meq/L 98-106 (test code = 382) CO2 (BEAKER) (test 24 meq/L 20-29 code = 355) BLOOD UREA NITROGEN 8 mg/dL 10-26 L (BEAKER) (test code = 354) CREATININE (BEAKER) 0.75 mg/dL 0.50-1.20 (test code = 358) GLUCOSE RANDOM 77 mg/dL 70-110 (BEAKER) (test code = 652) CALCIUM (BEAKER) 9.1 mg/dL 8.5-10.5 (test code = 697) EGFR (BEAKER) (test 118 mL/min/1.73 ESTIM ATED GFR IS code = 1092) sq m NOT ACCURATE CREATININE CLEARANCE IN PREDICTING GLOMERULAR FILTRATION RATE . ESTIMATED GFR I S NOT APPLICABLE FOR DIALYSIS PATIEN TS. Iron Carrier ID - [id number] ID - [id number] ID - [id number] ID - [id number] ID - [id number] ID - [id number] ID - [id number] ID - [id number] ID - [id number] ID - [id number] ID - [id number] ID - [id number] with platelet count + automated [id number] 19:43:00 Test Item Value Reference Range Interpretation Comments WBC (test code = 6690-2) 6.2 See_Comment [A utomated message] The system [employer] generated this result transmitted ref erence range: 4.0 - 10 .0 K/L. The refe rence range was not u sed to interpret this result as normal/abnor mal. RBC (test code = 789-8) 3.93 See_Comment L [Au tomated message] The system [employer] generated this result transmitted ref erence range: 4.20 - 5 .80 M/L. The refe rence range was not u sed to interpret this result as normal/abnor mal. MCHC (test code = 786-4) 34.2 See_Comment L [A utomated message] The system [employer] generated this result transmitted ref erence range: 32.0 - 3 6.0 GM/DL. The refe rence range was not u sed to interpret this result as normal/abnor mal. Hematocrit (test code = 35.1 % 36.0-50.0 L 4544-3) MCV (test code = 787-2) 89.3 fL 82.0-99.0 MCH (test code = 785-6) 30.5 pg 27.0-33.0 RDW (test code = 788-0) 12.9 % 12.0-15.0 Platelets (test code = 308 See_Comment [Aut omated message] 777-3) The system [employer] generated this result transmitted ref erence range: 150 - 43 0 K/CU MM. The referen ce range was not u sed to interpret this result as normal/abnor mal. MPV (test code = 8.7 fL 6.0-11.5 12491-1) nRBC (test code = 413) 0 See_Comment [Aut omated message] The system [employer] generated this result transmitted ref erence range: 0 - 0 /1 00 WBC. The refere nce range was not u sed to interpret this result as normal/abnor mal. % Neutros (test code = 48 % 429) % Lymphs (test code = 35 % 430) % Monos (test code = 8 % 431) % Eos (test code = 432) 8 % % Baso (test code = 437) 1 % # Neutros (test code = 2.95 See_Comment [Aut omated message] 670) The system [employer] generated this result transmitted ref erence range: 1.80 - 8 .00 K/L. The refe rence range was not u sed to interpret this result as normal/abnor mal. # Lymphs (test code = 2.15 See_Comment [Auto mated message] 414) The system [employer] generated this result transmitted ref erence range: 1.48 - 4 .50 K/L. The refe rence range was not u sed to interpret this result as normal/abnor mal. # Monos (test code = 0.49 See_Comment [Autom ated message] 415) The system [employer] generated this result transmitted ref erence range: 0.00 - 1 .30 K/L. The refe rence range was not u sed to interpret this result as normal/abnor mal. # Eos (test code = 416) 0.51 See_Comment H [Au tomated message] The system [employer] generated this result transmitted ref erence range: 0.00 - 0 .50 K/L. The refe rence range was not u sed to interpret this result as normal/abnor mal. # Baso (test code = 417) 0.05 See_Comment [A utomated message] The system [employer] generated this result transmitted ref erence range: 0.00 - 0 .20 K/L. The refe rence range was not u sed to interpret this result as normal/abnor mal. Immature 0 % 0-0 Granulocytes-Relative (test code = 2801) Lab Interpretation (test Abnormal code = 19646-8) [facility] with platelet count + automated [id number] 19:43:00 Test Item Value Reference Range Interpretation Comments WBC (test code = 6690-2) 6.2 See_Comment [A utomated message] The system [employer] generated this result transmitted ref erence range: 4.0 - 10 .0 K/L. The refe rence range was not u sed to interpret this result as normal/abnor mal. RBC (test code = 789-8) 3.93 See_Comment L [Au tomated message] The system [employer] generated this result transmitted ref erence range: 4.20 - 5 .80 M/L. The refe rence range was not u sed to interpret this result as normal/abnor mal. MCHC (test code = 786-4) 34.2 See_Comment L [A utomated message] The system [employer] generated this result transmitted ref erence range: 32.0 - 3 6.0 GM/DL. The refe rence range was not u sed to interpret this result as normal/abnor mal. Hematocrit (test code = 35.1 % 36.0-50.0 L 4544-3) MCV (test code = 787-2) 89.3 fL 82.0-99.0 MCH (test code = 785-6) 30.5 pg 27.0-33.0 RDW (test code = 788-0) 12.9 % 12.0-15.0 Platelets (test code = 308 See_Comment [Aut omated message] 597-3) The system [employer] generated this result transmitted ref erence range: 150 - 43 0 K/CU MM. The referen ce range was not u sed to interpret this result as normal/abnor mal. MPV (test code = 8.7 fL 6.0-11.5 00796-5) nRBC (test code = 413) 0 See_Comment [Aut omated message] The system [employer] generated this result transmitted ref erence range: 0 - 0 /1 00 WBC. The refere nce range was not u sed to interpret this result as normal/abnor mal. % Neutros (test code = 48 % 429) % Lymphs (test code = 35 % 430) % Monos (test code = 8 % 431) % Eos (test code = 432) 8 % % Baso (test code = 437) 1 % # Neutros (test code = 2.95 See_Comment [Aut omated message] 670) The system [employer] generated this result transmitted ref erence range: 1.80 - 8 .00 K/L. The refe rence range was not u sed to interpret this result as normal/abnor mal. # Lymphs (test code = 2.15 See_Comment [Auto mated message] 414) The system [employer] generated this result transmitted ref erence range: 1.48 - 4 .50 K/L. The refe rence range was not u sed to interpret this result as normal/abnor mal. # Monos (test code = 0.49 See_Comment [Autom ated message] 415) The system [employer] generated this result transmitted ref erence range: 0.00 - 1 .30 K/L. The refe rence range was not u sed to interpret this result as normal/abnor mal. # Eos (test code = 416) 0.51 See_Comment H [Au tomated message] The system [employer] generated this result transmitted ref erence range: 0.00 - 0 .50 K/L. The refe rence range was not u sed to interpret this result as normal/abnor mal. # Baso (test code = 417) 0.05 See_Comment [A utomated message] The system [employer] generated this result transmitted ref erence range: 0.00 - 0 .20 K/L. The refe rence range was not u sed to interpret this result as normal/abnor mal. Immature 0 % 0-0 Granulocytes-Relative (test code = 2801) Lab Interpretation (test Abnormal code = 39975-9) [facility] with platelet count + automated [id number] 19:43:00 Test Item Value Reference Range Interpretation Comments WBC (test code = 6690-2) 6.2 See_Comment [A utomated message] The system [employer] generated this result transmitted ref erence range: 4.0 - 10 .0 K/L. The refe rence range was not u sed to interpret this result as normal/abnor mal. RBC (test code = 789-8) 3.93 See_Comment L [Au tomated message] The system [employer] generated this result transmitted ref erence range: 4.20 - 5 .80 M/L. The refe rence range was not u sed to interpret this result as normal/abnor mal. MCHC (test code = 786-4) 34.2 See_Comment L [A utomated message] The system [employer] generated this result transmitted ref erence range: 32.0 - 3 6.0 GM/DL. The refe rence range was not u sed to interpret this result as normal/abnor mal. Hematocrit (test code = 35.1 % 36.0-50.0 L 4544-3) MCV (test code = 787-2) 89.3 fL 82.0-99.0 MCH (test code = 785-6) 30.5 pg 27.0-33.0 RDW (test code = 788-0) 12.9 % 12.0-15.0 Platelets (test code = 308 See_Comment [Aut omated message] 777-3) The system [employer] generated this result transmitted ref erence range: 150 - 43 0 K/CU MM. The referen ce range was not u sed to interpret this result as normal/abnor mal. MPV (test code = 8.7 fL 6.0-11.5 46821-2) nRBC (test code = 413) 0 See_Comment [Aut omated message] The system [employer] generated this result transmitted ref erence range: 0 - 0 /1 00 WBC. The refere nce range was not u sed to interpret this result as normal/abnor mal. % Neutros (test code = 48 % 429) % Lymphs (test code = 35 % 430) % Monos (test code = 8 % 431) % Eos (test code = 432) 8 % % Baso (test code = 437) 1 % # Neutros (test code = 2.95 See_Comment [Aut omated message] 670) The system [employer] generated this result transmitted ref erence range: 1.80 - 8 .00 K/L. The refe rence range was not u sed to interpret this result as normal/abnor mal. # Lymphs (test code = 2.15 See_Comment [Auto mated message] 414) The system [employer] generated this result transmitted ref erence range: 1.48 - 4 .50 K/L. The refe rence range was not u sed to interpret this result as normal/abnor mal. # Monos (test code = 0.49 See_Comment [Autom ated message] 415) The system [employer] generated this result transmitted ref erence range: 0.00 - 1 .30 K/L. The refe rence range was not u sed to interpret this result as normal/abnor mal. # Eos (test code = 416) 0.51 See_Comment H [Au tomated message] The system [employer] generated this result transmitted ref erence range: 0.00 - 0 .50 K/L. The refe rence range was not u sed to interpret this result as normal/abnor mal. # Baso (test code = 417) 0.05 See_Comment [A utomated message] The system [employer] generated this result transmitted ref erence range: 0.00 - 0 .20 K/L. The refe rence range was not u sed to interpret this result as normal/abnor mal. Immature 0 % 0-0 Granulocytes-Relative (test code = 2801) Lab Interpretation (test Abnormal code = 84791-2) [facility] with platelet count + automated [id number] 19:43:00 Test Item Value Reference Range Interpretation Comments WBC (test code = 6690-2) 6.2 See_Comment [A utomated message] The system [employer] generated this result transmitted ref erence range: 4.0 - 10 .0 K/L. The refe rence range was not u sed to interpret this result as normal/abnor mal. RBC (test code = 789-8) 3.93 See_Comment L [Au tomated message] The system [employer] generated this result transmitted ref erence range: 4.20 - 5 .80 M/L. The refe rence range was not u sed to interpret this result as normal/abnor mal. MCHC (test code = 786-4) 34.2 See_Comment L [A utomated message] The system [employer] generated this result transmitted ref erence range: 32.0 - 3 6.0 GM/DL. The refe rence range was not u sed to interpret this result as normal/abnor mal. Hematocrit (test code = 35.1 % 36.0-50.0 L 4544-3) MCV (test code = 787-2) 89.3 fL 82.0-99.0 MCH (test code = 785-6) 30.5 pg 27.0-33.0 RDW (test code = 788-0) 12.9 % 12.0-15.0 Platelets (test code = 308 See_Comment [Aut omated message] 777-3) The system [employer] generated this result transmitted ref erence range: 150 - 43 0 K/CU MM. The referen ce range was not u sed to interpret this result as normal/abnor mal. MPV (test code = 8.7 fL 6.0-11.5 07500-1) nRBC (test code = 413) 0 See_Comment [Aut omated message] The system [employer] generated this result transmitted ref erence range: 0 - 0 /1 00 WBC. The refere nce range was not u sed to interpret this result as normal/abnor mal. % Neutros (test code = 48 % 429) % Lymphs (test code = 35 % 430) % Monos (test code = 8 % 431) % Eos (test code = 432) 8 % % Baso (test code = 437) 1 % # Neutros (test code = 2.95 See_Comment [Aut omated message] 670) The system [employer] generated this result transmitted ref erence range: 1.80 - 8 .00 K/L. The refe rence range was not u sed to interpret this result as normal/abnor mal. # Lymphs (test code = 2.15 See_Comment [Auto mated message] 414) The system [employer] generated this result transmitted ref erence range: 1.48 - 4 .50 K/L. The refe rence range was not u sed to interpret this result as normal/abnor mal. # Monos (test code = 0.49 See_Comment [Autom ated message] 415) The system [employer] generated this result transmitted ref erence range: 0.00 - 1 .30 K/L. The refe rence range was not u sed to interpret this result as normal/abnor mal. # Eos (test code = 416) 0.51 See_Comment H [Au tomated message] The system [employer] generated this result transmitted ref erence range: 0.00 - 0 .50 K/L. The refe rence range was not u sed to interpret this result as normal/abnor mal. # Baso (test code = 417) 0.05 See_Comment [A utomated message] The system [employer] generated this result transmitted ref erence range: 0.00 - 0 .20 K/L. The refe rence range was not u sed to interpret this result as normal/abnor mal. Immature 0 % 0-0 Granulocytes-Relative (test code = 2801) Lab Interpretation (test Abnormal code = 79281-5) [facility] W/PLT COUNT & AUTO [id number] 19:43:00 Test Item Value Reference Range Interpretation Comments WHITE BLOOD CELL COUNT (BEAKER) 6.2 K/ L 4.0-10.0 (test code = 775) RED BLOOD CELL COUNT (BEAKER) 3.93 M/ L 4.20-5.80 L (test code = 761) HEMOGLOBIN (BEAKER) (test code = 12.0 GM/DL 13.0-16.8 L 410) HEMATOCRIT (BEAKER) (test code = 35.1 % 36.0-50.0 L 411) MEAN CORPUSCULAR VOLUME (BEAKER) 89.3 fL 82.0-99.0 (test code = 753) MEAN CORPUSCULAR HEMOGLOBIN 30.5 pg 27.0-33.0 (BEAKER) (test code = 751) MEAN CORPUSCULAR HEMOGLOBIN CONC 34.2 GM/DL 32.0-36.0 (BEAKER) (test code = 752) RED CELL DISTRIBUTION WIDTH 12.9 % 12.0-15.0 (BEAKER) (test code = 412) PLATELET COUNT (BEAKER) (test 308 K/CU MM 150-430 code = 756) MEAN PLATELET VOLUME (BEAKER) 8.7 fL 6.0-11.5 (test code = 754) NUCLEATED RED BLOOD CELLS 0 /100 WBC 0-0 (BEAKER) (test code = 413) NEUTROPHILS RELATIVE PERCENT 48 % (BEAKER) (test code = 429) LYMPHOCYTES RELATIVE PERCENT 35 % (BEAKER) (test code = 430) MONOCYTES RELATIVE PERCENT 8 % (BEAKER) (test code = 431) EOSINOPHILS RELATIVE PERCENT 8 % (BEAKER) (test code = 432) BASOPHILS RELATIVE PERCENT 1 % (BEAKER) (test code = 437) NEUTROPHILS ABSOLUTE COUNT 2.95 K/ L 1.80-8.00 (BEAKER) (test code = 670) LYMPHOCYTES ABSOLUTE COUNT 2.15 K/ L 1.48-4.50 (BEAKER) (test code = 414) MONOCYTES ABSOLUTE COUNT (BEAKER) 0.49 K/ L 0.00-1.30 (test code = 415) EOSINOPHILS ABSOLUTE COUNT 0.51 K/ L 0.00-0.50 H (BEAKER) (test code = 416) BASOPHILS ABSOLUTE COUNT (BEAKER) 0.05 K/ L 0.00-0.20 (test code = 417) IMMATURE GRANULOCYTES-RELATIVE 0 % 0-0 PERCENT (BEAKER) (test code = 2801) SURGICAL [id number] 07:40:00 RUN DATE: 09/19/18 [facility] *LIVE* PAGE 1 RUN TIME: 740 Specimen Inquiry RUN USER: INTERFACE --PATIENT: VERÓNICA NUNN [facility] U #: [id number] AGE/SX: 32/M ROOM: [facility] RE09/15/18REG DR: Keith Swann MD : 84 BED: 1 DIS: 09/16/18 STATUS: DIS IN TLOC: SPEC #: [id number] RECD: 09/15/18 STATUS: YESIAraceli REQ #: [id number] DONA: 09/15/181824 [facility] DR: Keith Swann MD ENTERED: 09/18/18SP TYPE: SURG SPEC OTHR DR: No Primary or Family Physician Self Referred Gale Dowling MDORDERED:GM LEVEL 4 CODES: [id number] - ESOPHAGUS, NOS COPIES TO: No Primary or Family Physician Self Referred Keith Swann MD [address] [place] [address] Gale Dowling MD [address] [place] [address] [id number] PROCEDURES: GM LEVEL 4 (Incomplete) TISSUES: 1. ESOPHAGUS, NOS - Esophagus, bx. FINAL DIAGNOSIS Esophagus, bx.: Eosinophilic esophagitis. GROSS AND MICROSCOPIC GROSS EXAMI NATION: Received in formalin labeled esophagus biopsy are 2 james tissue fragments measuring up to 0.4cm submitted in one cassette. MICROSCOPIC EXAMINATION: Sections [...] ON NEXT PAGE RUN DATE: 09/19/18 [facility] *LIVE* PAGE 2 RUN TIME: 740 Specimen Inquiry RUN USER: INTERFACE SPEC #: [id number] PATIENT: VERÓNICA NUNN #[id number] (Continued) POST-OP DIAGNOSIS Esophagitis, supertial tear in the esophagus, R/O Flor, esosinophilic es PRE-OP DIAGNOSIS Hematemesis Signed SIGNATURE ON Joce Suazo Ilsa QUINONES 09/19/18 0740 - END OF REPORT BASIC METABOLIC [id number] 08:40:00 Test Item Value Reference Range Interpretation Comments SODIUM (test code = NA) 141 mEq/L 134-147 N POTASSIUM (test code = 4.0 mEq/L 3.4-5.0 N K) CHLORIDE (test code = 111 mEq/L 100-108 H CL) CARBON DIOXIDE (test 24 mEq/L 21-33 N code = CO2) ANION GAP (test code = 10 0-20 N GAP) GLUCOSE (test code = 80 mg/dL 70-110 N GLU) BLOOD UREA NITROGEN 6 mg/dL 7-18 L (test code = BUN) GLOMERULAR FILTRATION 129.9 105-110 H Units of measure = RATE (test code = GFR) ml/mi n/1.73 m2 CREATININE (test code = 0.7 mg/dL 0.6-1.3 N CREAT) CALCIUM (test code = 9.1 mg/dL 8.0-10.5 N CA) CBC W/AUTO [id number] 08:20:00 Test Item Value Reference Range Interpretation [...] (test code NO = MDIFF) CBC W/AUTO [id number] 22:25:00 Test Item Value Reference Range Interpretation [...] (test code NO = MDIFF) CBC W/AUTO [id number] 12:50:00 Test Item Value Reference Range Interpretation [...] (test code NO = MDIFF) CBC W/AUTO [id number] 07:24:00 Test Item Value Reference Range Interpretation [...] REQUIRED (test NO code = MDIFF) PROTHROMBIN [id number] 00:10:00 Test Item Value Reference Range Interpretation Comments PROTHROMBIN TIME 14.0 SECONDS 9.3-12.9 H PATIENT (test code = PTP) INTERNATIONAL NORMAL 1.2 0.8-1.2 N TARGET INR BY RATIO (test code = INDICATIO N Indication INR) INR1. Prophylax is of venous thrombos is 2.0 - 3.0 (orthoped ic surgery), Proph ylaxis of venous throm bosis (other than hig h-risk surgery), Treat ment of Deep Vein Thrombosis/Pulm onary Embolism, Preve ntion of systemic emb olism - Tissue heart va lves, Acute Myocardia l Infarction (to prevent systemic emboli sm), Valvular heart disease, Atrial Fibrillation, Bileaflet mecha nical valve in aortic position.2. Mec hanical prosthetic valv es (high risk), 2. 5 - 3.5 Presence of Lup us Anticoagulant o r Antiphospholipi d Antibodies, Pre vention of systemic emb olism - Acute Myocardia l Infarction (to prevent recurrent infar ct). CBC W/AUTO [id number] 00:03:00 Test Item Value Reference Range Interpretation [...] REQUIRED (test NO code = MDIFF) PROTHROMBIN [id number] 18:57:00 Test Item Value Reference Range Interpretation Comments PT PATIENT (test code = PTP) 13.1 SECONDS 9.3-12.9 H INTERNATIONAL NORMAL RATIO 1.14 INR Unit 0.8-1.2 N (test code = INR) URINALYSIS [id number] 18:56:00 Test Item Value Reference Range Interpretation [...] code = LEUU) - CT ABD PELVIS [id number] 16:49:00 Name: VERÓNICA NUNN [place] : 1985 Age/S: 32 / M [address] [address] [place] Unit #: [id number] Loc: [place] [address] Phys: Ivette Choudhary MD Acct: [id number] Dis Date: Status: REG ER PHONE #: [phone] Exam Date: 09/14/2018 1639 FAX #: Reason: abd pain unable to give further info 08/05 mr EXAMS: CPT: [id number] CT ABD PELVIS W/CONT 28627 EXAMINATION: - CT ABD PELVIS W/CONT. LOCATION: T18.HISTORY: Abdominal pain, vomiting blood. COMPARISON: CT abdomen/pelvis [...] wall thickening, distal esophagus contains fluid within itwith surrounding fat stranding. No abdominal or pelvic bulky lymphadenopathy is identified. No pneumoperitoneum or free fluid. Visualized osseous structures demonstrate mild degenerative changes. Schmorl's node along the inferior endplate of L3. IMPRESSION: Distended distal esophagus with wall thickening and surrounding stranding, esophagus containing fluid within it. Consider correlation with EGD given provided clinical history. at 1649 Reported and signed by: Braxton Langford M.D. PAGE 1 Signed Report (CONTINUED) Name: VERÓNICA NUNN [place] : 1985 Age/S: 32 / M [address] [address] [place] Unit #: [id number] Loc: [place] [address] Phys: Ivette Choudhary MD Acct: [id number] Dis Date: Status: REG ER PHONE #: [phone] Exam Date: 09/14/2018 1635 FAX #: Reason: abd pain unable to give further info / mr FLOWERS MS: CPT: [id number] CT ABD PELVIS W/CONT 85744 (Continued) CC: Ivette Choudhary MD Technologist:Mariely Brar, RT(R)(CT) CTDI: DLP: Trnscb Date/Time: 09/14/2018 (1648) t.[email or web address] Orig Print D/T: S: 09/14/2018 (983) CTDI: DLP: PAGE 2 Signed ReportBASIC METABOLIC [id number] 16:06:00 Test Item Value Reference Range Interpretation [...] CA) 9.7 MG/DL 8.5-10.1 N HEPATIC FUNCTION [id number] 16:06:00 Test Item Value Reference Range Interpretation [...] 89 Unit/L 50-136 N code = ALKP) [id number] 16:06:00 Test Item Value Reference Range Interpretation Comments LIPASE (test code = LIP) 173 Unit/L 114-286 N BASIC METABOLIC [id number] 15:56:00 Test Item Value Reference Range Interpretation [...] CA) 9.7 MG/DL 8.5-10.1 N HEPATIC FUNCTION [id number] 15:56:00 Test Item Value Reference Range Interpretation [...] TOTAL (test code Unit/L 50-136 = ALKP) [id number] 15:56:00 Test Item Value Reference Range Interpretation Comments LIPASE (test code = LIP) 173 Unit/L 114-286 N CBC W/AUTO [id number] 15:47:00 Test Item Value Reference Range Interpretation [...]
--- NOTE | 2022-03-09 12:41 | RAD REPORT ---
EXAM DESCRIPTION: RAD - Chest Single View - 03/09/2022 12:36 pm CLINICAL HISTORY: fever, ams COMPARISON: No comparisons FINDINGS: Lines: None. Lungs: Ill-defined airspace disease is present in the right upper lobe. Pleural: No significant pleural effusions or pneumothorax. Cardiac: The heart size is within normal limits. Mediastinum: Within normal limits. Bones: No acute fractures. Other: None IMPRESSION: Ill-defined airspace disease in right upper lobe is concerning for pneumonia.
[2022-03-09] MEDS ORDERED: NA CHLORIDE 0.9% 1,000 ML ONE (13:01)
[2022-03-09 13:28] LABS: Absolute Lymphocytes (CBC) 0.6 K/uL (0.7-4.9); Hematocrit 29.6 % (39.6-49.0); Lymphocytes % 8.8 % (15.3-44.8); MPV 7.1 fL (7.6-11.3); RBC Red Blood Cell Count 3.37 M/uL (4.33-5.43)
[2022-03-09 13:32] LABS: Protime INR 1.19
[2022-03-09 13:45] LABS: Urine Blood Negative (Negative); Urine Glucose Negative (Negative); Urine Protein Negative (Negative); Urine Specific Gravity 1.015 (1.005-1.030); Urine pH 7.5 (5.0-7.0)
[2022-03-09 13:50] LABS: Albumin 2.6 g/dL (3.4-5.0); Bilirubin Total 0.4 mg/dL (0.2-1.0); Protein, Total 6.4 g/dL (6.4-8.2)
[2022-03-09 14:17] LABS: Urine Bacteria <20 /HPF (<20); Urine Mucus Slight /HPF (None Seen); Urine RBC <5 /HPF (None Seen)
[2022-03-09] MEDS ORDERED: CEFTRIAXONE 1000 MG/VIAL ONE (15:40)
[2022-03-09] MEDS ORDERED: NA CHLORIDE 0.9% 250 ML ONE (15:41)
[2022-03-09] MEDS ORDERED: AZITHROMYCIN 500 MG INJ IVPB ONE (15:41)
[2022-03-09] MEDS ORDERED: OSELTAMIVIR 75 MG CAP ONE (15:41)
--- NOTE | 2022-03-09 15:56 | ER ---
Nurse's Notes [facility] Name: Alexy Mock Age: 36 yrs Sex: Male : 1985 Arrival Date: 03/09/2022 Time: 12:16 Bed 8 Private MD: Diagnosis: Pneumonia, unspecified organism;Influenza due to other identified influenza virus with pneumonia;Altered mental status, unspecified Presentation: 03/09 12:32 Chief complaint: Patient states: Fever, AMS per [facility]. Coronavirus screen: Vaccine ll1 status: Patient reports receiving the 2nd dose of the covid vaccine. Client denies travel out of the [place] in the last 14 days. fatigue, fever. Ebola Screen: Patient denies travel to an Ebola-affected area in the 21 days before illness onset. Initial Sepsis Screen: Does the patient meet any 2 criteria? HR > 90 bpm. No. Patient's initial sepsis screen is negative. Does the patient have a suspected source of infection? No. Patient's initial sepsis screen is negative. Risk Assessment: Do you want to hurt yourself or someone else? Patient reports no desire to harm self or others. Onset of symptoms was March 09, 2022. 12:32 Method Of Arrival: EMS ll1 12:32 Acuity: ELROY 3 ll1 12:40 Chief complaint: EMS states: 18 G L FA, 1 L NS bolus. Tylenol 650 mg per PEG 45 min. ll1 BOTTLE TESTER. Triage Assessment: 12:37 General: Appears ill, Behavior is appropriate for age. Pain: Denies pain. Neuro: ll1 Reports weakness fever. Historical: - Allergies: 12:34 No Known Allergies; ll1 - PMHx: 12:34 adhd; Bipolar disorder; MR; ll1 12:35 abnormal liver function; pressure ulcer sacral region; Anemia; dysphagia; ll1 encephalopathy; epilepsy; - PSHx: 12:34 G tube; ll1 - Immunization history:: Client reports receiving the 2nd dose of the Covid vaccine. - Social history:: Smoking status: Patient denies any tobacco usage or history of. - History obtained from: EMS. - Unable to obtain history due to: altered mental status. Screenin:32 Abuse screen: Denies threats or abuse. Denies injuries from another. Nutritional iw screening: On NPO diet. Tuberculosis screening: No symptoms or risk factors identified. Fall Risk IV access (20 points). Assessment: 13:00 General: Appears in no apparent distress. slender, emaciated, Behavior is unresponsive. iw Pain: Unable to use pain scale. FLACC scale score is 3 out of 10. Patient is unresponsive. Neuro: Level of Consciousness is unresponsive, Oriented to none. Cardiovascular: Patient's skin is warm and dry. Respiratory: Airway is patent Respiratory effort is even, Respiratory pattern is regular, symmetrical. GI: PEG tube in place, clamped. Site clean. Derm: Skin is dry, Skin is Decubitus located on sacrum approximately 1.5 cm to 2.5 cm is stage III bed has granulation present. Musculoskeletal: Range of motion: limited in left elbow, left knee, right elbow and right knee pt with contractures in all four extremities. 14:09 Reassessment: pt cleaned, repositioned in bed, mother at bedside. iw 15:52 Reassessment: Patient appears in no apparent distress at this time. warm blankets iw given, antibiotics flowing freely, diaper appears dry , VSS. 17:39 Reassessment: Patient appears in no apparent distress at this time. pt sleeping, mother iw at bedside water given. 18:31 Reassessment: diaper changed , pt in NAD, VSS, awaiting room assignment, afebrile, iw mother stepping out to go eat dinner. Vital Signs: 12:32 BP 126 / 92; Pulse 97; Resp 16; Temp 98.0(A); Pulse Ox 94% on R/A; Pain 0/10; ll1 14:08 BP 124 / 94; Pulse 85; Resp 18; Pulse Ox 99% on R/A; iw 15:51 BP 124 / 90; Pulse 90; Resp 18 S; Pulse Ox 97% on R/A; iw 17:31 BP 127 / 91; Pulse 90; Resp 18; Temp 98.0(A); Pulse Ox 97% on R/A; iw 20:09 BP 139 / 102; Pulse 87; Pulse Ox 96% on R/A; aa9 21:28 BP 144 / 98; Pulse 88; Pulse Ox 95% on R/A; aa9 07 00:50 BP 124 / 87; Pulse 70; Resp 18 S; Pulse Ox 98% on R/A; aa9 03:01 BP 117 / 79; Pulse 75; Pulse Ox 98% on R/A; aa9 ED Course: 03/09 12:16 Patient arrived in ED. em1 12:16 Dani Hodge MD is Attending Physician. rn 12:31 Arm band placed on Patient placed in an exam room, on a stretcher. ll1 12:34 Triage completed. ll1 12:38 Maintain EMS IV. Dressing intact. Good blood return noted. Gauge \T\ site: 18 G L FA. ll1 13:00 Ada Fajardo, RN is Primary Nurse. iw 13:29 Inserted saline lock: 18 gauge in right antecubital area, using aseptic technique. iw 14:00 Urine collected: straight cath specimen, clear, Amount Returned: 400mL. Patient iw maintains SpO2 saturation greater than 95% on room air. 14:14 Notified ED physician of a critical lab result(s). flu B positive. ll1 14:30 Inserted saline lock: 22 gauge in right antecubital area, using aseptic technique. iw 15:55 Delmar Oseguera is Hospitalizing Provider. rn 21:28 Patient has correct armband on for positive identification. Side rails up X2. Adult w/ aa9 patient. 21:28 No provider procedures requiring assistance completed. aa9 03/10 03:01 Door closed. Lights dimmed. Warm blanket given. Turned to left side. Repositioned aa9 patient. Cleaned of incontinence. Linen changed. Administered Medications: 03/09 13:53 Drug: NS 0.9% 1000 ml Route: IV; Rate: 1000 ml; Site: left antecubital; iw 03/10 15:00 Follow up: IV Status: Completed infusion iw 03/09 15:45 Drug: Rocephin (cefTRIAXone) 1 grams Route: IV; Rate: calculated rate; Site: right iw antecubital; 03/10 15:35 Follow up: IV Status: Completed infusion iw 03/09 15:51 Drug: Zithromax (azithromycin) 500 mg Route: IVPB; Infused Over: 1 hrs; Site: right iw antecubital; 03/10 17:00 Follow up: IV Status: Infusion continued iw 03/09 17:50 Drug: Tamiflu (oseltamivir) 75 mg {Note: given via PEG tube.} Route: PO; iw 03/10 18:10 Follow up: Response: No adverse reaction iw Outcome: 09/06 15:55 Decision to Hospitalize by Provider. rn 03/10 11:19 Patient left the ED. mb8 Signatures: Ada Fajardo RN RN iw Dani Hodge MD MD rn Martinez, Eric em1 Halima Bowens RN RN ll1 Peyton Ruano, GILLIAN RN aa9 Ba Kennedy RN RN mb8 Corrections: (The following items were deleted from the chart) 03/09 12:37 12:35 PMHx: ARF; ll1 ll1 18:31 17:31 BP 127 / 91; Pulse 90bpm; Resp 18bpm; Pulse Ox 97% RA; [facility] 03/10 20:03 09 20:10 General: Appears comfortable, slender, aa9 03/10 20:05 11:18 Condition: good [facility] 20:05 11:18 Discharged to home ambulatory, [facility]
--- NOTE | 2022-03-09 15:56 | EDPHYS ---
Physician Documentation [facility] Name: Alexy Mock Age: 36 yrs Sex: Male : 1985 Arrival Date: 03/09/2022 Time: 12:16 Bed 8 Private MD: ED Physician Dani Hodge HPI: 03/09 12:18 This 36 yrs old Male presents to ER via Unassigned with complaints of fever, rn AMS. 12:18 The patient reports fever, that was measured at 100.4 degrees Fahrenheit. Onset: The rn symptoms/episode began/occurred at an unknown time. Modifying factors: there are no obvious modifying factors. Severity of symptoms: At their worst the symptoms were moderate in the emergency department the symptoms are unchanged. It is unknown whether or not the patient has had similar symptoms in the past. It is unknown whether or not the patient has recently seen a physician. EMS reports fever to 100.4, [facility] for [facility] and fever. Decreased responsiveness that they noticed this AM but unsure onset. Has feeding tube. . Historical: - Allergies: 12:34 No Known Allergies; ll1 - PMHx: 12:34 adhd; Bipolar disorder; MR; ll1 12:35 abnormal liver function; pressure ulcer sacral region; Anemia; dysphagia; ll1 encephalopathy; epilepsy; - PSHx: 12:34 G tube; ll1 - Immunization history:: Client reports receiving the 2nd dose of the Covid vaccine. - Social history:: Smoking status: Patient denies any tobacco usage or history of. - History obtained from: EMS. - Unable to obtain history due to: altered mental status. ROS: 12:18 Unable to obtain ROS due to altered mental status. rn Exam: 12:18 Constitutional: Thin, cachectic male, no acute distress Head/Face: Normocephalic, rn atraumatic. ENT: dry MM Cardiovascular: Tachycardic, regular Respiratory: No increased work of breathing, no retractions or nasal flaring. Abdomen/GI: soft, non-tender, no drainage or erythema from feeding tube. Skin: Warm, dry MS/ Extremity: Pulses equal, no cyanosis. Neuro: Does not follow commands or speak, + contracted, opens eyes 16:24 ECG was reviewed by the Attending Physician. rn Vital Signs: 12:32 BP 126 / 92; Pulse 97; Resp 16; Temp 98.0(A); Pulse Ox 94% on R/A; Pain 0/10; ll1 14:08 BP 124 / 94; Pulse 85; Resp 18; Pulse Ox 99% on R/A; iw 15:51 BP 124 / 90; Pulse 90; Resp 18 S; Pulse Ox 97% on R/A; iw 17:31 BP 127 / 91; Pulse 90; Resp 18; Temp 98.0(A); Pulse Ox 97% on R/A; iw 20:09 BP 139 / 102; Pulse 87; Pulse Ox 96% on R/A; aa9 21:28 BP 144 / 98; Pulse 88; Pulse Ox 95% on R/A; aa9 03/10 00:50 BP 124 / 87; Pulse 70; Resp 18 S; Pulse Ox 98% on R/A; aa9 03:01 BP 117 / 79; Pulse 75; Pulse Ox 98% on R/A; aa9 MDM: 03/09 12:16 Patient medically screened. rn 15:17 Differential diagnosis: viral Infection, bacterial infection, URI, pneumonia UTI. Data rn reviewed: vital signs, nurses notes, lab test result(s), radiologic studies, plain films, and as a result, I will admit patient. Counseling: I had a detailed discussion with the patient and/or guardian regarding: the historical points, exam findings, and any diagnostic results supporting the discharge/admit diagnosis, lab results, radiology results, the need for further work-up and treatment in the hospital. Response to treatment: There is no appreciated change of the patient's symptoms at this time. 15:55 Admission orders: after a detailed discussion of the patient's condition and case, the airborne mission systems superintendent orders are written by me. 03/09 12:17 Order name: Blood Culture Adult (2) rn 03/09 12:17 Order name: CBC with Diff rn 03/09 12:17 Order name: CMP rn 03/09 12:17 Order name: Lactate rn 03/09 12:17 Order name: Protime (+inr) rn 03/09 12:17 Order name: Ptt, Activated rn 03/09 12:17 Order name: Urine Culture rn 03/09 12:17 Order name: Urine Microscopic Only rn 03/09 12:17 Order name: SARS-COV-2 RT PCR (Document "Date of Onset" if Symptomatic) rn 03/09 12:17 Order name: Flu rn 03/09 12:18 Order name: ETOH Level rn 03/09 13:32 Order name: Protime (+INR); Complete Time: 14:06 EDMS 03/09 13:32 Order name: PTT, Activated Partial Thromb; Complete Time: 14:06 EDMS 03/09 13:40 Order name: Lactate; Complete Time: 14:06 EDMS 03/09 12:17 Order name: Chest Single View XRAY rn 03/09 12:42 Order name: RAD; Complete Time: 14:06 EDMS 03/09 13:40 Order name: CBC with Automated Diff; Complete Time: 14:06 EDMS 03/09 13:41 Order name: Alcohol Serum/Plasma; Complete Time: 14:06 EDMS 03/09 13:45 Order name: Urine Dipstick-Ancillary; Complete Time: 14:06 EDMS 03/09 13:54 Order name: Comprehensive Metabolic Panel; Complete Time: 14:06 EDMS 03/09 14:00 Order name: Glucose, Ancillary Testing; Complete Time: 14:06 EDMS 03/09 14:16 Order name: Influenza Screen (A ; Complete Time: 14:37 EDMS 03/09 14:17 Order name: Urine Microscopic Only; Complete Time: 14:37 EDMS 03/09 14:52 Order name: SARS-COV-2 RT PCR EDMS 03/09 23:05 Order name: Blood Culture EDMS 03/09 23:05 Order name: Influenza Screen (A EDMS 03/10 02:26 Order name: CBC with Automated Diff EDMS 03/10 03:00 Order name: Comprehensive Metabolic Panel EDMS 03/10 03:00 Order name: Phosphorus EDMS 03/10 03:00 Order name: Magnesium EDMS 03/09 12:17 Order name: Accucheck; Complete Time: 13:36 rn 03/09 12:17 Order name: Cardiac monitoring; Complete Time: 13:37 rn 03/09 12:17 Order name: EKG - Nurse/Tech; Complete Time: 15:51 rn 03/09 12:17 Order name: IV Saline Lock - Large Bore; Complete Time: 13:37 rn 03/09 12:17 Order name: Labs collected and sent; Complete Time: 13:37 rn 03/09 12:17 Order name: O2 Per Protocol; Complete Time: 13:37 rn 03/09 12:17 Order name: O2 Sat Monitoring; Complete Time: 13:37 rn 03/09 12:17 Order name: Urine Dipstick-Ancillary (obtain specimen); Complete Time: 15:51 rn EC:24 Rate is 87 beats/min. Rhythm is regular. QRS [place] is Normal. VA interval is normal. QRS rn interval is normal. QT interval is normal. No Q waves. T waves are Normal. No ST changes noted. Clinical impression: NSR w/ Non-specific ST/T Changes. Interpreted by me. Reviewed by me. Administered Medications: 13:53 Drug: NS 0.9% 1000 ml Route: IV; Rate: 1000 ml; Site: left antecubital; 03/10 15:00 Follow up: IV Status: Completed infusion 03/09 15:45 Drug: Rocephin (cefTRIAXone) 1 grams Route: IV; Rate: calculated rate; Site: right iw antecubital; 03/10 15:35 Follow up: IV Status: Completed infusion 03/09 15:51 Drug: Zithromax (azithromycin) 500 mg Route: IVPB; Infused Over: 1 hrs; Site: right iw antecubital; 03/10 17:00 Follow up: IV Status: Infusion continued 03/09 17:50 Drug: Tamiflu (oseltamivir) 75 mg {Note: given via PEG tube.} Route: PO; 03/10 18:10 Follow up: Response: No adverse reaction iw Disposition Summary: 03/09/22 15:55 Hospitalization Ordered Hospitalization Status: Inpatient Admission rn Provider: Delmar Oseguera rn Condition: Stable rn Problem: new rn Symptoms: are unchanged rn Bed/Room Type: Standard rn Location: Telemetry/MedSurg (Inpatient)(03/10/22 10:51) dw Room Assignment: [facility](03/10/22 10:51) dw Diagnosis - Pneumonia, unspecified organism rn - Influenza due to other identified influenza virus with pneumonia rn - Altered mental status, unspecified rn Forms: - Medication Reconciliation Form rn - SBAR form rn Signatures: Dispatcher [employer] Nati Landers RN RN dw Williams, Irene, RN RN Dani Hodge MD MD rn Garcia, Cindy, RN RN Halima Bowens RN RN ll1 Corrections: (The following items were deleted from the chart) 03/09 12:37 12:35 PMHx: ARF; ll1 ll1 19:18 15:55 Telemetry/MedSurg (Inpatient) aram cg :18 15:55 aram cg 03/10 10:51 03/09 19:18 [facility] [place] cg dw 03/10 10:51 03/09 19:18 [place]- dw
[2022-03-09] MEDS ORDERED: ACETAMINOPHEN 650MG/RECT SUPP PR PRN (17:25)
[2022-03-09] MEDS ORDERED: ONDANSETRON 4 MG/2 ML VIAL IV PRN (17:25)
--- NOTE | 2022-03-09 17:25 | P.HP ---
Certification for Inpatient Patient admitted to: Inpatient With expected LOS: >2 Midnights Patient will require the following post-hospital care: Retirement Practitioner: I am a practitioner with admitting privileges, knowledge of patient current condition, hospital course, and medical plan of care. Services: Services provided to patient in accordance with Admission requirements found in Title 42 Section 412.3 of the Code of Federal Regulations Patient History Date of Service: 03/09/22 Reason for admission: Right upper lobe pneumonia, toxic/metabolic encephalopathy History of Present Illness: 36-year-old male patient with history of mental issues was evaluated in the ER for episode of fever. There was a reported fever of 104 and patient was found to be altered. In the ED imaging study revealed right upper lobe pneumonia depicting significant infection and lab reviewed low potassium of 3.0 with significant neutrophil differential of 86%. He was admitted for inpatient care and started on broad-spectrum antibiotic after blood cultures were taken. Allergies No Known Allergies Allergy (Unverified 03/09/22 12:19) - Past Medical/Surgical History Past Medical History: Unable to obtain Past Surgical History: Unable to obtain - Social History Smoking Status: Unknown if ever smoked Review of Systems is unable to be obtained (due to altered mental status.) Physical Examination - Physical Exam General: Unresponsive HEENT: Atraumatic, Normocephalic Neck: Supple Respiratory: Diminished Cardiovascular: Regular rate/rhythm, Normal S1 S2 Gastrointestinal: Soft and benign Musculoskeletal: Other (reduced muscle mass.) - Studies Laboratory Data (last 24 hrs) 03/09/22 12:50: PT 13.1 H, INR 1.19, APTT 35.9 03/09/22 12:50: Sodium 140, Potassium 3.0 L, BUN 18, Creatinine 0.36 L, Glucose 93, Total Bilirubin 0.4, AST 144 H, ALT 372 H*, Alkaline Phosphatase 171 H 03/09/22 12:50: WBC 7.10, Hgb 10.4 L, Hct 29.6 L, Plt Count 341 Microbiology Data (last 24 hrs): 03/09/22 13:54 Nasopharnyx Influenza Type A Antigen Screen - Final 03/09/22 13:54 Nasopharnyx Influenza Type B Antigen Screen - Final Assessment and Plan - Plan Right upper lobe pneumonia. Patient does have x-ray finding of right upper lobe opacification. He also does not have altered mentation and there is concern for toxic/metabolic encephalopathy. Will continue empiric antibiotic therapy of Rocephin/azithromycin for management of lobar pneumonia. Will monitor symptomatology closely We will follow cultures for adjustment if needed Hypokalemia Potassium is low at 3.0. We will replete and follow protocol. Toxic/metabolic encephalopathy. Patient does have altered mentation and there is significant concern for pneumonia as source of altered mentation. Antibiotic has been started with supportive care. Will adjust therapy based on cultures. Will follow trend of mental status Prophylaxis: Lovenox for DVT prophylaxis with SCDs CODE STATUS: Full code Disposition: He will be discharged back to his care facility once he is deemed clinically stable. Discharge Plan: Snf - Advance Directives Does patient have a Living Will: No Does patient have a Durable POA for Healthcare: No
[2022-03-09] MEDS ORDERED: AZITHROMYCIN IV 500 MG in NA CHLORIDE 0.9% 250 ML IVPB SCH (18:00)
[2022-03-09] MEDS ORDERED: CEFTRIAXONE 1,000 MG in NA CHLORIDE 0.9% 50 ML IVPB SCH (18:00)
[2022-03-09] MEDS: D5 0.45 NS 1,000 ML IV SCH (18:56)
[2022-03-09] MEDS ORDERED: D5 0.45 NS 1,000 ML IV ONE (18:57)
--- NOTE | 2022-03-10 01:43 | P.PN ---
Subjective Date of Service: 03/10/22 Chief Complaint: Right upper lobe pneumonia, toxic/metabolic encephalopathy Subjective: No new changes, No C/O voiced, Improving Review of Systems 10-point ROS is otherwise unremarkable Physical Examination - Vital Signs Temperature: 97.6 F Blood Pressure: 131/96 Pulse: 71 Respirations: 23 Pulse Ox (%): 96 - Physical Exam General: Alert, In no apparent distress HEENT: Atraumatic, PERRLA, EOMI Neck: Supple, JVD not distended Respiratory: Diminished, Rhonchi/gurgles Cardiovascular: Regular rate/rhythm, Normal S1 S2 Gastrointestinal: Normal bowel sounds, No tenderness Musculoskeletal: No tenderness Integumentary: No rashes Neurological: Normal speech, Normal tone, Normal affect Lymphatics: No axilla or inguinal lymphadenopathy - Studies Laboratory Data (last 24 hrs) 03/09/22 12:50: PT 13.1 H, INR 1.19, APTT 35.9 03/09/22 12:50: Sodium 140, Potassium 3.0 L, BUN 18, Creatinine 0.36 L, Glucose 93, Total Bilirubin 0.4, AST 144 H, ALT 372 H*, Alkaline Phosphatase 171 H 03/09/22 12:50: WBC 7.10, Hgb 10.4 L, Hct 29.6 L, Plt Count 341 03/09/22 12:17: PT Cancelled, INR Cancelled, APTT Cancelled 03/09/22 12:17: Sodium Cancelled, Potassium Cancelled, BUN Cancelled, Creatinine Cancelled, Glucose Cancelled, Total Bilirubin Cancelled, AST Cancelled, ALT Cancelled, Alkaline Phosphatase Cancelled 03/09/22 12:17: WBC Cancelled, Hgb Cancelled, Hct Cancelled, Plt Count Cancelled Microbiology Data (last 24 hrs): 03/09/22 13:54 Nasopharnyx Influenza Type A Antigen Screen - Final 03/09/22 13:54 Nasopharnyx Influenza Type B Antigen Screen - Final Medications List Reviewed: Yes Assessment & Plan - Problems (Diagnosis) (1) Right upper lobe pneumonia Current Visit: Yes Status: Acute (2) Alcohol use Current Visit: Yes Status: Acute - Plan 1. Continue with IV antibiotics 2. Awaiting sputum and blood culture 3. Repeat chest x-ray 4. Will proceed with CT scan of the chest if pneumonia is not improved 5. Wound care 6. Continue with nebs as needed 7. O2 per protocol 8. Continue with gentle hydration 9. Repeat labs including CBC and renal function in a.m. 10. GI and DVT prophylaxis Discharge Plan: Half-Way Plan to discharge in: 48 Hours - Advance Directives Does patient have a Living Will: No Does patient have a Durable POA for Healthcare: No - Code Status/Comfort Care Code Status Assessed: Yes Code Status: Full Code Critical Care: No Time Spent Managing PTS Care (In Minutes): 35
[2022-03-10 02:26] LABS: Lymphocytes % 12.4 % (15.3-44.8); MCV 87.3 fL (80-100); RBC Red Blood Cell Count 3.43 M/uL (4.33-5.43)
[2022-03-10 02:56] LABS: Albumin 2.3 g/dL (3.4-5.0); Bilirubin Total 0.3 mg/dL (0.2-1.0); Magnesium 2.2 mg/dL (1.8-2.4); Phosphorus 3.1 mg/dL (2.5-4.9); Protein, Total 6.1 g/dL (6.4-8.2)
[2022-03-10 02:59] LABS: Potassium 2.9 mmol/L (3.5-5.1)
[2022-03-10] MEDS ORDERED: KCL 20 MEQ/100 mL IVPB 100 ML IV ONE (03:52)
[2022-03-10] MEDS ORDERED: KCL 20 MEQ/100 mL IVPB 20 MEQ/100 ML BAG IV SCH (04:00)
[2022-03-10] MEDS: D5 0.45 NS 1,000 ML IV SCH ×2 (07:20→20:14)
[2022-03-10] MEDS: DOCUSATE NA 50 MG/5 ML UCUP FT SCH (08:14)
[2022-03-10] MEDS: ENOXAPARIN 40 MG/0.4 ML SQ SCH (08:15)
[2022-03-10] MEDS: levETIRAcetam 500 MG/5 ML OSYR FT SCH ×2 (08:15→20:14)
[2022-03-10] MEDS: CEFTRIAXONE 1,000 MG in NA CHLORIDE 0.9% 50 ML IVPB SCH (08:16)
[2022-03-10] MEDS: AZITHROMYCIN IV 500 MG in NA CHLORIDE 0.9% 250 ML IVPB SCH (08:16)
[2022-03-10] MEDS: POLYETHYL GLY 3350 17 GM/DOSE FT SCH (08:53)
--- NOTE | 2022-03-10 12:49 | EKG ---
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
[2022-03-10 13:15] VITALS: BMI 16.7
[2022-03-11 03:47] LABS: Absolute Lymphocytes (CBC) 0.7 K/uL (0.7-4.9); Lymphocytes % 8.6 % (15.3-44.8); MCV 87.5 fL (80-100); MPV 7.6 fL (7.6-11.3)
[2022-03-11 04:10] LABS: Albumin 2.3 g/dL (3.4-5.0); Bilirubin Direct 0.1 mg/dL (0-0.2); Bilirubin Total 0.2 mg/dL (0.2-1.0)
[2022-03-11 04:14] LABS: Potassium 2.6 mmol/L (3.5-5.1)
[2022-03-11] MEDS ORDERED: KCL 20 MEQ/100 mL IVPB 20 MEQ/100 ML BAG IV SCH (05:00)
[2022-03-11] MEDS: KCL 20 MEQ/100 mL IVPB 20 MEQ/100 ML BAG IV SCH ×2 (07:30→09:30)
[2022-03-11] MEDS: levETIRAcetam 500 MG/5 ML OSYR FT SCH ×2 (08:59→21:13)
[2022-03-11] MEDS: AZITHROMYCIN IV 500 MG in NA CHLORIDE 0.9% 250 ML IVPB SCH (09:00)
[2022-03-11] MEDS: DOCUSATE NA 50 MG/5 ML UCUP FT SCH (09:00)
[2022-03-11] MEDS: ENOXAPARIN 40 MG/0.4 ML SQ SCH (09:01)
[2022-03-11] MEDS: POLYETHYL GLY 3350 17 GM/DOSE FT SCH (09:01)
[2022-03-11] MEDS: CEFTRIAXONE 1,000 MG in NA CHLORIDE 0.9% 50 ML IVPB SCH (09:01)
[2022-03-11] MEDS: D5 0.45 NS 1,000 ML IV SCH (09:04)
--- NOTE | 2022-03-11 12:52 | P.PN ---
Date of Service: 03/11/22 Subjective Subjective: No new changes, Improving; infectious disease and they recommended debridement of the sacral decubitus Review of Systems 10-point ROS is otherwise unremarkable Physical Examination - Vital Signs reviewed - Physical Exam General: Alert, stares up at the air; in no apparent distress Respiratory: Clear bilaterally Cardiovascular: Regular rate/rhythm, Normal S1 S2 Gastrointestinal: Normal bowel sounds, No tenderness Musculoskeletal: No tenderness Integumentary: Stage IV sacral decubitus ulcer Neurological: Patient with MR and unable to verbally communicate. Patient has bedbound Assessment & Plan - Problems (Diagnosis) (1) Right upper lobe pneumonia-influenza Current Visit: Yes Status: Acute (2) Debility/MR Current Visit: Yes Status: Chronic (3) Sacral decubitus ulcer Current Visit: Yes Status: Chronic (4) PEG tube Current Visit: Yes Status: Chronic (5) Pseudomonas UTI Current Visit: Yes Status: Acute - Plan Continue with POC as mentioned: 1. Continue with IV antibiotics 2. CX-urine positive for Pseudomonas 3. Repeat chest x-ray 4. ID consult 5. Wound care 6. Continue with nebs as needed 7. O2 per protocol 8. Continue with gentle hydration and hold tube feeds for surgery in AM 9. Repeat labs 10. GI and DVT prophylaxis Discharge Plan: Group Home Plan to discharge in: 48 Hours - Advance Directives Does patient have a Living Will: No Does patient have a Durable POA for Healthcare: No - Code Status/Comfort Care Code Status Assessed: Yes Code Status: Full Code Critical Care: No Time Spent Managing PTS Care (In Minutes): 35
[2022-03-11] MEDS ORDERED: POTASSIUM CL 40 MEQ in NA CHLORIDE 0.9% 500 ML IV SCH ×4 (15:00)
--- NOTE | 2022-03-11 20:48 | CON ---
History Of Present Illness: Patient is a 36-year-old male with significant past medical history of m etabolic encephalopathy. Patient was admitted for right upper lobe pneumonia. I was consulted for s acrococcyx unstageable wound. Patient has a long history of mental retardation. He was reported to have 104 fever with altered mental status. X-ray showed right upper lobe pneumonia, most likely aspi ration. Past Medical History: As per HPI. Social History: Nonsmoker, nondrinker. Family History: Noncontributory. Medications: Zithromax, Rocephin. See MAR for other medications. Allergies: NO KNOWN DRUG ALLERGIES. Review of Systems: Unable to obtain. Physical Examination: General: This is a 36-year-old male, lying in bed, not in any acute cardiopulmonary distress. Vital Signs: Temperature 97, pulse 71, respiration 23, blood pressure 131/96. HEENT: Unremarkable. Neck: Supple. Lungs: Basal crackles right more than left. Heart: S1, S2. Regular. Abdomen: Soft, nontender. Bowel sounds present. Extremities: Sacrococcyx region show large thick leathery covering of the wound base with surroundin g erythematous changes. Extremities muscle wasting noted. Laboratory Data: Shows WBC 7.9, hemoglobin 9.9, platelets 343. Chemistry shows sodium 140, potassiu m 3.2, chloride 98, bicarb 26, BUN 16, creatinine 0.3, glucose 124. Albumin is 2.3. Micro data is g rowing gram-negative rods in urine. Blood cultures done on 03/09 are negative for [address] [facility] st x-ray done on 03/09 shows ill-defined airspace disease in the right upper lobe concerning pneumoni a. Assessment And Plan: A 36-year-old male with history of mental retardation, coming in with altered m ental status, high fevers, sepsis, and right upper lobe pneumonia, currently being treated with Zithr omax and Rocephin. Patient also has unstageable sacrococcyx wound. We will recommend to apply Medih oney, offloading, and low air loss mattress. Urinary tract infection secondary to gram-negative rods . Sensitivity and specificity pending. Blood cultures are negative. Patient is empirically being c overed with Rocephin and Zithromax. We will continue antibiotic for total of 10 days. Consider gett ing debridement of sacrococcyx wound once patient is stable. We will follow the patient closely. Thank you Dr. Strickland for consult. NF/MODL Voice ID: [id number] Report ID: [id number]
[2022-03-12] MEDS: D5 0.45 NS 1,000 ML IV SCH ×2 (04:51→22:17)
[2022-03-12 06:00] LABS: Lymphocytes % 26.6 % (15.3-44.8); MCV 89.3 fL (80-100); MPV 7.2 fL (7.6-11.3); RBC Red Blood Cell Count 3.02 M/uL (4.33-5.43)
[2022-03-12 06:08] LABS: Potassium 3.2 mmol/L (3.5-5.1)
[2022-03-12] MEDS: CEFTRIAXONE 1,000 MG in NA CHLORIDE 0.9% 50 ML IVPB SCH (08:18)
[2022-03-12] MEDS: AZITHROMYCIN IV 500 MG in NA CHLORIDE 0.9% 250 ML IVPB SCH (08:53)
[2022-03-12] MEDS: POLYETHYL GLY 3350 17 GM/DOSE FT SCH (09:00)
[2022-03-12] MEDS: DOCUSATE NA 50 MG/5 ML UCUP FT SCH (09:00)
[2022-03-12] MEDS: MEDIHONEY 44 ML TOPICAL TUBE TOP SCH (09:00)
[2022-03-12] MEDS: ENOXAPARIN 40 MG/0.4 ML SQ SCH (09:00)
[2022-03-12] MEDS: levETIRAcetam 500 MG/5 ML OSYR FT SCH ×2 (09:01→20:33)
[2022-03-12] MEDS: KCL 20 MEQ/100 mL IVPB 20 MEQ/100 ML BAG IV SCH ×2 (10:23→12:33)
[2022-03-12] MEDS: PIPER TAZO 3.375 GM in NA CHLORIDE 0.9% 100 ML IV SCH ×2 (10:40→17:05)
[2022-03-12] MEDS ORDERED: propofoL 200 MG/20 ML VIAL IV ONE (14:32)
[2022-03-12] MEDS ORDERED: FENTANYL CITR 100 MCG/2 ML ONE (14:33)
[2022-03-12] MEDS ORDERED: LIDOCAINE 2% MPF 5 ML VIAL ONE (14:34)
[2022-03-12] MEDS ORDERED: MIDAZOLAM HCL 2 MG/2 ML INJ ONE (14:34)
[2022-03-12] MEDS ORDERED: ONDANSETRON 4 MG/2 ML VIAL ONE (14:36)
[2022-03-12] MEDS ORDERED: BUPIVACAINE 0.25% PF 10 ML VIAL ONE (14:37)
[2022-03-12] MEDS ORDERED: SODIUM HYPOCHLORITE 0.25% 473 ML ONE (14:37)
[2022-03-12] MEDS: NA CHLORIDE 0.9% 1,000 ML ONE ×2 (14:40→14:55)
[2022-03-12] MEDS ORDERED: DEXTROSE 10%-WATER 500 ML IV ONE (14:54)
[2022-03-12] MEDS ORDERED: GLYCOPYRROLATE 0.2 MG/ML SYR ONE (15:20)
[2022-03-12] MEDS ORDERED: EPHEDRINE SULF 50 MG/ML VIAL ONE (15:28)
--- NOTE | 2022-03-12 16:01 | P.OP ---
Preoperative diagnosis: Sacral Ulcer Stage III Postoperative diagnosis: Sacral Ulcer Stage III Primary procedure: Debridement of Sacral Ulcer Stage III Anesthesia: GETA + Local Estimated blood loss: <5cc Specimen: debridement tissue Findings: Sacral Ulcer Stage III with necrosis Complications: None Transferred to: Recovery Room Condition: Good
[2022-03-12] MEDS: JEVITY 1.5 CAL LIQUID 1,000 ML BOT RTH SCH (17:35)
[2022-03-12] MEDS: HYDROMORPHONE HCL 0.5 MG/0.5 ML INJ IV PRN (18:47)
--- NOTE | 2022-03-12 18:55 | P.PN ---
Date of Service: 03/12/22 Subjective Patient scheduled for debridement. Possible discharge tomorrow after debridement Review of Systems 10-point ROS is otherwise unremarkable Physical Examination - Vital Signs reviewed - Physical Exam General: Alert, stares up at the air; in no apparent distress Respiratory: Clear bilaterally Cardiovascular: Regular rate/rhythm, Normal S1 S2 Gastrointestinal: Normal bowel sounds, No tenderness Musculoskeletal: No tenderness Integumentary: Stage IV sacral decubitus ulcer Neurological: Patient with MR and unable to verbally communicate. Patient has bedbound Assessment & Plan - Problems (Diagnosis) (1) Right upper lobe pneumonia-influenza Current Visit: Yes Status: Acute (2) Debility/MR Current Visit: Yes Status: Chronic (3) Sacral decubitus ulcer Current Visit: Yes Status: Chronic (4) PEG tube Current Visit: Yes Status: Chronic (5) Pseudomonas UTI Current Visit: Yes Status: Acute - Plan Continue with POC as mentioned: 1. Continue with IV antibiotics 2. CX-urine positive for Pseudomonas 3. Repeat chest x-ray 4. ID consult 5. Wound care 6. Continue with nebs as needed 7. O2 per protocol 8. Continue with gentle hydration and hold tube feeds for surgery in AM 9. Repeat labs 10. GI and DVT prophylaxis Discharge Plan: Longterm Plan to discharge in: 48 Hours - Advance Directives Does patient have a Living Will: No Does patient have a Durable POA for Healthcare: No - Code Status/Comfort Care Code Status Assessed: Yes Code Status: Full Code Critical Care: No Time Spent Managing PTS Care (In Minutes): 35
[2022-03-13 00:26] VITALS: O2SAT 97
[2022-03-13] MEDS: PIPER TAZO 3.375 GM in NA CHLORIDE 0.9% 100 ML IV SCH ×3 (00:39→15:57)
[2022-03-13] MEDS: D5 0.45 NS 1,000 ML IV SCH ×2 (02:00→15:57)
--- NOTE | 2022-03-13 03:16 | OP ---
Date of Procedure: 03/12/2022 Surgeon: Baljeet Wiggins MD, Preoperative Diagnosis: Sacral decubitus ulcer, stage III. Postoperative Diagnosis: Sacral decubitus ulcer, stage III. Procedure Performed: Debridement of stage III sacral decubitus ulcer. Anesthesia: General endotracheal plus local with 0.25% Marcaine without epinephrine. Estimated Blood Loss: Less than 5 cc. Specimen: Debridement tissue. Findings: Sacral ulcer stage III with necrosis extending to the fascia overlying the sacral/coccygea l area. Complications: None. The patient transferred to recovery room in good condition. Procedure In Detail: After informed consent was obtained from the patient's mother, the patient was prepped and draped in the usual sterile fashion. After adequate anesthesia was achieved, I began sha rply debriding the area of the sacral ulcer for approximately 4.5 cm x 3.5 cm down to the fascia over lying the sacrum. The bone was not obviously involved at this time. There was an approximately stag e III sacral decubitus ulcer. All nonviable and necrotic tissue were removed using a combination of both sharp and electrocautery dissection. The tissue was sent off for pathologic examination. Hemos tasis was achieved with electrocautery. The area was copiously irrigated until completely cleansed. The area was dried. No additional hemostat was required. The wound was then packed with Dakin-soak ed Kerlix and a sterile dressing placed over top. The patient tolerated the procedure without any ev idence of complication and transferred to PACU in good condition. All counts were correct at the end of the case. PHAM/MARSHA Voice ID: [id number] Report ID: [id number]
[2022-03-13 05:39] LABS: Hematocrit 27.7 % (39.6-49.0); MCV 87.1 fL (80-100); RBC Red Blood Cell Count 3.18 M/uL (4.33-5.43)
[2022-03-13] MEDS: POLYETHYL GLY 3350 17 GM/DOSE FT SCH (07:58)
[2022-03-13] MEDS: ENOXAPARIN 40 MG/0.4 ML SQ SCH (07:58)
[2022-03-13] MEDS: levETIRAcetam 500 MG/5 ML OSYR FT SCH ×2 (07:58→20:04)
[2022-03-13] MEDS: DOCUSATE NA 50 MG/5 ML UCUP FT SCH (07:59)
[2022-03-13] MEDS: MEDIHONEY 44 ML TOPICAL TUBE TOP SCH (07:59)
[2022-03-13] MEDS: HYDROMORPHONE HCL 0.5 MG/0.5 ML INJ IV PRN ×2 (09:04→14:31)
[2022-03-13] MEDS: JEVITY 1.5 CAL LIQUID 1,000 ML BOT RTH SCH (15:25)
[2022-03-14] MEDS: PIPER TAZO 3.375 GM in NA CHLORIDE 0.9% 100 ML IV SCH (00:32)
[2022-03-14] MEDS: HYDROMORPHONE HCL 0.5 MG/0.5 ML INJ IV PRN ×2 (02:16→07:37)
[2022-03-14] MEDS: D5 0.45 NS 1,000 ML IV SCH (05:27)
--- NOTE | 2022-03-14 07:38 | P.PN ---
Date of Service: 03/13/22 Subjective Patient doing well postoperatively. Patient denies any new complaints. Review of Systems 10-point ROS is otherwise unremarkable Physical Examination - Vital Signs reviewed - Physical Exam General: Alert, stares up at the air; in no apparent distress Respiratory: Clear bilaterally Cardiovascular: Regular rate/rhythm, Normal S1 S2 Gastrointestinal: Normal bowel sounds, No tenderness Musculoskeletal: No tenderness Integumentary: Stage IV sacral decubitus ulcer Neurological: Patient with MR and unable to verbally communicate. Patient has bedbound Assessment & Plan - Problems (Diagnosis) (1) Right upper lobe pneumonia-influenza Current Visit: Yes Status: Acute (2) Debility/MR Current Visit: Yes Status: Chronic (3) Sacral decubitus ulcer Current Visit: Yes Status: Chronic (4) PEG tube Current Visit: Yes Status: Chronic (5) Pseudomonas UTI Current Visit: Yes Status: Acute - Plan Continue with POC as mentioned: 1. Continue with IV antibiotics 2. CX-urine positive for Pseudomonas 3. Repeat chest x-ray 4. ID consult appreciated 5. Appreciate surgical consultation; status post debridement day #1 6. Continue with nebs as needed 7. O2 per protocol 8. Continue with gentle hydration and hold tube feeds for surgery in AM 9. Repeat labs 10. GI and DVT prophylaxis Discharge Plan: Half-Way Plan to discharge in: 48 Hours - Advance Directives Does patient have a Living Will: No Does patient have a Durable POA for Healthcare: No - Code Status/Comfort Care Code Status Assessed: Yes Code Status: Full Code Critical Care: No Time Spent Managing PTS Care (In Minutes): 35
[2022-03-14] MEDS ORDERED: CEFEPIME 2 GM in NA CHLORIDE 0.9% 100 ML IV SCH (08:30)
[2022-03-14] MEDS ORDERED: Levofloxacin500mg IV 500 MG/100 ML BAG IV SCH (08:30)
[2022-03-14] MEDS: DOCUSATE NA 50 MG/5 ML UCUP FT SCH (09:00)
[2022-03-14] MEDS: MEDIHONEY 44 ML TOPICAL TUBE TOP SCH (09:00)
[2022-03-14] MEDS: POLYETHYL GLY 3350 17 GM/DOSE FT SCH (09:45)
[2022-03-14] MEDS: ENOXAPARIN 40 MG/0.4 ML SQ SCH (09:45)
--- NOTE | 2022-03-14 09:50 | P.PN ---
Subjective Date of Service: 03/14/22 Chief Complaint: Right upper lobe pneumonia, toxic/metabolic encephalopathy Subjective: Improving Physical Examination - Vital Signs Temperature: 97.6 F Blood Pressure: 124/74 Pulse: 53 Respirations: 18 Pulse Ox (%): 97 - Physical Exam General: Alert, Unresponsive (Patient does not speak, but is awake, alert, moves purposefully @ times. - unchanged from pre-op exam) Integumentary: Other (sacral wound is properly dressed, clean and dry, no infection) - Studies Medications List Reviewed: Yes Assessment And Plan - Plan - continue daily wound care with dakins, damp to dry, pressure reduction with rolling patient Q2 hrs - follow up in my clinic in 1-2 weeks - air mattress
[2022-03-14] MEDS: levETIRAcetam 500 MG/5 ML OSYR FT SCH (10:16)
[2022-03-14] MEDS: JEVITY 1.5 CAL LIQUID 1,000 ML BOT RTH SCH (10:57)
[2022-03-14 11:37] LABS: Absolute Lymphocytes (CBC) 0.6 K/uL (0.7-4.9); Hematocrit 30.8 % (39.6-49.0); Lymphocytes % 5.9 % (15.3-44.8); MCV 87.1 fL (80-100); RBC Red Blood Cell Count 3.53 M/uL (4.33-5.43)
[2022-03-14 12:06] LABS: Potassium 3.5 mmol/L (3.5-5.1)
[2022-03-14 13:58] VITALS: BP 180/94; TEMP 98.8
== END 2022-03-14 14:25 | DRG 166 ==
LOC: ER 11:56 → ERHOLD 17:26 → 4TH 03-10 11:12
PROVIDERS: ADMIT Internal Medicine Nephrology; ATTEND Internal Medicine Nephrology
PROC: 0JB70ZZ Excision of Back Subcutaneous Tissue and Fascia, Open Approach (ICD-10-PCS; principal; 2022-03-12 11:15)
DX: J10.00 Influenza due to other identified influenza virus with unspecified type of pneumonia (principal); L89.153 Pressure ulcer of sacral region, stage 3; G92.8 Other toxic encephalopathy; N39.0 Urinary tract infection, site not specified; E87.6 Hypokalemia; Z93.1 Gastrostomy status; F79 Unspecified intellectual disabilities; R53.81 Other malaise; Z74.01 Bed confinement status; B96.5 Pseudomonas (aeruginosa) (mallei) (pseudomallei) as the cause of diseases classified elsewhere; Z20.822 Contact with and (suspected) exposure to COVID-19
CPT/HCPCS: 36415; 71045; 80048; 80053; 80076; 80320; 81003; 81015; 82947; 83605; 83735; 84100; 84132; 85025; 85610; 85730; 87040; 87070; 87077; 87086; 87088; 87186; 87205; 87804; 88304; 93005; 96361; 96365; 96366; 99251; 99285; J0456; J0692; J1170; J1650; J2001; J2250; J2405; J2543; J2704; J3010; J3480; J7030; J7040; J7050; J7799; U0003

== ENCOUNTER 2022-03-20 19:09 | Emergency (ER) | payer OTHER ==
--- OUTSIDE RECORDS SUMMARY | 2022-03-20 19:17 | XMS REPORT | Continuity of Care Document ---
:1985 Author Organization [facility] t Address [address] [place] [address] Care Team Providers Name Role Phone Asked, No Pcp Primary Care Physician Unavailable WANDA SHUKLA Attending Clinician Unavailable KAMILLE BETTENCOURT Attending Clinician Unavailable SVEN_BAHWarren_Neftaly Attending Clinician Unavailable Mariela Linares Attending Clinician [phone] Damir Nieves Attending Clinician [phone] ISIDORO KUMAR Attending Clinician Unavailable Isidoro Kumar Attending Clinician ANNIE MOON Attending Clinician Unavailable ARVIND LOWE Attending Clinician Unavailable Arvind Lowe Attending Clinician Chris Vega Attending Clinician Ai BECKER, Modesto Cruz Attending Clinician [phone] MODESTO CLOUD Attending Clinician Unavailable Zain David Attending Clinician Unavailable Molina Hernández MD Attending Clinician Sarai BECKER, Annie Henley Attending Clinician Lion Parry MD, Kym Attending Clinician [phone] Richardson BECKER, Marla Polanco Attending Clinician Elida Peter MD Attending Clinician Seun Lucero, Malissa Martin Attending Clinician + [phone] ELIDA PETER Attending Clinician Unavailable KYM GUTIERREZ Attending Clinician Unavailable Wanda Shukla Attending Clinician Barrera Anderson MD Attending Clinician [phone] BARRERA ANDERSON Attending Clinician Unavailable Brii Campbell [...] Lowe Admitting Clinician Chris Vega Admitting Clinician [phone] Physician, No Primary or Family Admitting Clinician Unavaila MALISSA Telles Admitting Clinician Unavailable HammondsHandy singletary Kianna Admitting Clinician Annette Butler Admitting Clinician Vijay Combs Admitting Clinician Payers Payer Name Policy Type Policy Number Effective Date Expiration Date S [place] MEDICAID [id number] 2018 00:00:00 MEDICARE PART A & [id number] 2010 B 00:00:00 [place]: [id number] 2010 [place] 00[place]:00 [place] [id number] [place] [id number] MAO SSI [id number] 2018 RELATED 00:00:00 Problems Condition Condition Condition [...] Disease Active H arris behavior, behavior, Heal adult adult Other Other Disease Active [place] insomnia insomnia Health Bipolar 1 Bipolar 1 Disease Active [facility] ris disorder disorder Health Elevated Elevated Disease Active [facility] lithium lithium Health level level Anemia Anemia Disease Active [facility] Weight Weight Disease Active [place] loss loss Health Agitation Agitation Disease Active [facility] Allergies, Adverse Reactions, Alerts Allergy Allergy Status Severity Reaction(s) Onset Inactive Treating Comm ents Source Name Type Date Date Clinician No Known DA Active U [facility]08 [place] [facility] 00:[facility]: d 00 [facility] No Known DA Active U 2016-07 [facility] Allergie 25 [place] [facility] 00:00: d 00 [facility] No Known DA Active U 2016-07 [facility] Allergie 25 [facility] s 00:00: Andre 00 [facility] NO KNOWN Allergy Active [facility] Social History Social Habit Start Date Stop Date Quantity Comments Source History [facility] Food [facility] Worry History [facility] Food 2021-12-23 2021-12-23 1 [place] [facility] Scarcity 00:00:00 00:00:00 Tobacco use and 2021-12-23 2021-12-23 Smokeless tobacco [facility] exposure 00:00:00 00:00:00 non-user Alcohol intake 2021-12-23 2021-12-23 [facility] lt 00:00:00 00:00:00 non-drinker (finding) Sex Ass[birth year] At [birth year] [place] [facility] 00:00:00 00:00:00 Smoking Status Start Date Stop Date Source Tobacco smoking consumption unknown [facility] Never smoker [facility] Medications Ordered Filled Start Stop Current Ordering [...] Center daily for 3 days. magnesium 2021-0 2021- No 296mL Take [address] [...] 00 :00 for 1 Center dose. furosemide 2-0 2022- No 20mg QD Take [address] [facility] (LASIX) 20 7-12 07-12 tablet (20 Amalia kes MG tablet 00:00: 00:00 mg total) Me dical 00 :00 by mouth Center daily for 3 days. magnesium 2-0 2022- No 296mL Take [facility] [...] Center daily for 3 days. magnesium 2-0 2022- No 296mL Take [address] citrate 7-12 07-12 mLs by [facility] solution 00:00: 23:59 mouth once Me dical 00 :00 for 1 Center dose. pantoprazol 2022-0 Yes 40mg QD Take [address] [facility] 7-11 by mouth [facility] (PROTONIX) 00:00: daily. Medic al 40 MG 00 Center tablet pantoprazol 2-0 Yes 40mg QD Take [address] [facility] 7-11 by mouth [facility] (PROTONIX) 00:00: daily. Medic al 40 MG 00 Center tablet pantoprazol 2-0 Yes 40mg QD Take [address] [facility] e 7-11 by mouth [facility] (PROTONIX) 00:00: daily. Medic al 40 MG 00 Center tablet pantoprazol 2-0 Yes 40mg QD Take [address] [facility] 7-11 by mouth [facility] (PROTONIX) 00:00: daily. Medic al 40 MG 00 Center tablet pantoprazol 2-0 Yes 40mg QD Take [address] [facility] e 7-11 by mouth [facility] (PROTONIX) 00:00: daily. Medic al 40 MG 00 Center tablet levETIRAcet 2022-0 Yes 500mg Q.5D Take [address] am (KEPPRA) 6-23 mg by [facility] 500 MG 00:00: mouth 2 Medical tablet 00 (two) Center times daily. levETIRAcet 2022-0 Yes 500mg Q.5D Take [address] am (KEPPRA) 6-23 mg by [facility] 500 MG 00:00: mouth 2 Medical tablet 00 (two) Center times daily. levETIRAcet 2022-0 Yes 500mg Q.5D Take [address] am (KEPPRA) 6-23 mg by [facility] 500 MG 00:00: mouth 2 Medical tablet 00 (two) Center times daily. levETIRAcet 2022-0 Yes 500mg Q.5D Take [address] am (KEPPRA) 6-23 mg by [facility] 500 MG 00:00: mouth 2 Medical tablet 00 (two) Center times daily. levETIRAcet 2022-0 Yes 500mg Q.5D Take [address] am (KEPPRA) 6-23 mg by [facility] 500 MG 00:00: mouth 2 Medical tablet 00 (two) Center times daily. tamsulosin 2-0 2022- No [facility] .4mg QD Take 1 [place] (FLOMAX) 6-15 09-13 l capsule by [place] 0.4 mg 00:00: 23:59 disability mouth capsule 00 :00 daily for 90 days. Start 12/16/21. haloperidoL 2021-0 2022- No [facility] 10mg QD Take 1 [place] (HALDOL) 10 6-15 09-13 l tablet by alth mg tablet 00:00: 23:59 disability mouth 00 :00 daily for 90 days. Start 12/16/21. tamsulosin 2-0 2022- No .4mg Take 0.[address] (FLOMAX) 6-15 09-13 mg by [facility] 0.4 mg Cap 00:00: 23:59 mouth. Medi jonatan 24 hr 00 :00 Center capsule tamsulosin 2022-0 2022- No .4mg Take 0.[address] (FLOMAX) 6-15 09-13 mg by [facility] 0.4 mg Cap 00:00: 23:59 mouth. Medi jonatan 24 hr 00 :00 Center capsule tamsulosin 2-0 2022- No .4mg Take 0.[address] (FLOMAX) 6-15 09-13 mg by [facility] 0.4 mg Cap 00:00: 23:59 mouth. Medi jonatan 24 hr 00 :00 Center capsule tamsulosin 2022-0 2022- No .4mg Take 0.[address] (FLOMAX) 6-15 09-13 mg by [facility] 0.4 mg Cap 00:00: 23:59 mouth. Medi jonatan 24 hr 00 :00 Center capsule tamsulosin 2-0 2022- No [facility] .4mg QD Take 1 [place] (FLOMAX) 6-15 09-13 l capsule by [place] 0.4 mg 00:00: 23:59 disability mouth capsule 00 :00 daily for 90 days. Start 12/16/21. haloperidoL 2021-0 2022- No [facility] 10mg QD Take 1 [place] (HALDOL) 10 6-15 09-13 l tablet by alth mg tablet 00:00: 23:59 disability mouth 00 :00 daily for 90 days. Start 12/16/21. tamsulosin 2021-0 2021- No [facility] .4mg QD Take 1 [place] (FLOMAX) 6-15 09-13 l capsule by [place] 0.4 mg 00:00: 23:59 disability mouth capsule 00 :00 daily for 90 days. Start 12/16/21. haloperidoL 0 2021- No [facility] 10mg QD Take 1 [place] (HALDOL) 10 6-15 09-13 l tablet by alth mg tablet 00:00: 23:59 disability mouth 00 :00 daily for 90 days. Start 12/16/21. tamsulosin 2021-0 2021- No [facility] .4mg QD Take 1 [place] (FLOMAX) 6-15 09-13 l capsule by [place] 0.4 mg 00:00: 23:59 disability mouth capsule 00 :00 daily for 90 days. Start 12/16/21. haloperidoL 2021- No [facility] 10mg QD Take 1 [place] (HALDOL) 10 6-15 09-13 l tablet by alth mg tablet 00:00: 23:59 disability mouth 00 :00 daily for 90 days. Start 12/16/21. tamsulosin 0 2021- No [facility] .4mg QD Take 1 [place] (FLOMAX) 6-15 09-13 l capsule by [place] 0.4 mg 00:00: 23:59 disability mouth capsule 00 :00 daily for 90 days. Start 12/16/21. haloperidoL 2021-0 2021- No [facility] 10mg QD Take 1 [place] (HALDOL) 10 6-15 09-13 l tablet by alth mg tablet 00:00: 23:59 disability mouth 00 :00 daily for 90 days. Start 12/16/21. tamsulosin 2021-0 2021- No .4mg Take 0.[address] [facility] [address] (FLOMAX) 6-15 09-13 mg by [facility] 0.4 mg Cap 00:00: 23:59 mouth. Medi jonatan 24 hr 00 :00 Center capsule clonazePAM 2021-0 Yes Bipolar 1 .25mg Q.5D Take 1/2 [place] (KLONOPIN) 6-14 disorder (ONE-HALF) Health 0.5 mg 00:00: tablet by tablet 00 mouth 2 times daily clonazePAM 2021-0 Yes .25mg Take 0.[address] (KlonoPIN) 6-14 mg by [facility] 0.5 MG 00:00: mouth. Medical tablet 00 [place] clonazePAM 2022-0 Yes .25mg Take 0.[address] (KlonoPIN) 6-14 mg by [facility] 0.5 MG 00:00: mouth. Medical tablet 00 [place] clonazePAM 2022-0 Yes .25mg Take 0.[address] (KlonoPIN) 6-14 mg by [facility] 0.5 MG 00:00: mouth. Medical tablet 00 [place] clonazePAM 2022-0 Yes .25mg Take 0.[address] (KlonoPIN) 6-14 mg by [facility] 0.5 MG 00:00: mouth. Medical tablet 00 [place] clonazePAM 2022-0 Yes Bipolar 1 .25mg Q.5D [...] mouth 2 times daily clonazePAM 2022-0 Yes .25mg Take 0.[address] (KlonoPIN) 6-14 mg by [facility] 0.5 MG 00:00: mouth. Medical tablet 00 [place] sennosides- 2021-0 202- No [facility] 2{tbl} Q.5D Take 2 [place] docusate 12-15 l tablets by Heal th sodium 00:00: 23:59 disability mouth 2 (SENNA 00 :00 (two) PLUS) times a 8.6-50 mg day for 90 tablet days mirtazapine 2021-0 2021- No [facility] 15mg Take 1 [place] (REMERON) 6-14 09-12 l tablet by [facility] th 15 mg 00:00: 23:59 disability mouth at tablet 00 :00 bedtime nightly for 90 days lithium 2021- No Intellectua 300mg Q.5D Take 1 [place] carbonate 6-14 09-12 l capsule by [facility] (ESKALITH) 00:00: 23:59 disability mouth 2 300 mg 00 :00 (two) capsule times a day for 90 days haloperidoL 2021- No [facility] 20mg Take 2 [place] (HALDOL) 10 6-14 09-12 l tablets by ealth mg tablet 00:00: 23:59 disability mouth at 00 :00 bedtime nightly for 90 days cloNIDine 2021- No [facility] .1mg Take 1 [place] HCL 6-14 09-[address] [facility] (CATAPRES) 00:00: 23:59 disability mouth 0.1 mg 00 :00 every tablet evening amitriptyli 2021- No [facility] 10mg Take 1 [place] ne (ELAVIL) 6-14 09-12 l tablet by [facility] 10 mg 00:00: 23:59 disability mouth at tablet 00 :00 bedtime nightly cloNIDine 2021- No .1mg Take 0.[address] [facility] HCL 6-14 09-12 mg by [facility] (CATAPRES) 00:00: 23:59 mouth. Medi jonatan 0.1 MG 00 :00 Center tablet senna-docus 2021- No 2{tbl} Take [address] ate 6-14 09-12 tablets by [facility] (SENOKOT S) 00:00: 23:59 mouth. Med ical 8.6-50 mg 00 :00 Center per tablet cloNIDine 2021- No .1mg Take 0.[address] [facility] HCL 6-14 09-12 mg by [facility] (CATAPRES) 00:00: 23:59 mouth. Medi jonatan 0.1 MG 00 :00 Center tablet senna-docus 2021- No 2{tbl} Take [address] ate 6-14 09-12 tablets by [facility] (SENOKOT S) 00:00: 23:59 mouth. Med ical 8.6-50 mg 00 :00 Center per tablet cloNIDine 2021- No .1mg Take 0.[address] [facility] HCL 6-14 09-12 mg by [facility] (CATAPRES) 00:00: 23:59 mouth. Medi jonatan 0.1 MG 00 :00 Center tablet senna-docus 2021- No 2{tbl} Take [address] ate 6-14 09-12 tablets by [facility] (SENOKOT S) 00:00: 23:59 mouth. Med ical 8.6-50 mg 00 :00 Center per tablet cloNIDine 2021- No .1mg Take 0.[address] [facility] [address] HCL 6-14 09-12 mg by [facility] (CATAPRES) 00:00: 23:59 mouth. Medi jonatan 0.1 MG 00 :00 Center tablet senna-docus 2021- No 2{tbl} Take [address] ate 6-14 09-12 tablets by [facility] (SENOKOT S) 00:00: 23:59 mouth. Med ical 8.6-50 mg 00 :00 Center per tablet sennosides- 2021- No [facility] 2{tbl} Q.5D Take 2 [place] docusate 6-14 09-12 l tablets by Heal th sodium 00:00: 23:59 disability mouth 2 (SENNA 00 :00 (two) PLUS) times a 8.6-50 mg day for 90 tablet days mirtazapine 2021- No [facility] 15mg Take 1 [place] (REMERON) 6-14 09-12 l tablet by Heal th 15 mg 00:00: 23:59 disability mouth at tablet 00 :00 bedtime nightly for 90 days lithium 2021- No [facility] 300mg Q.5D Take 1 [place] carbonate 6-14 09-12 l capsule by [facility] (ESKALITH) 00:00: 23:59 disability mouth 2 300 mg 00 :00 (two) capsule times a day for 90 days haloperidoL 2021- No [facility]lect[facility] 20mg Take 2 [place] (HALDOL) 10 6-14 09-12 l tablets by H ealth mg tablet 00:00: 23:59 disability mouth at 00 :00 bedtime nightly for 90 days cloNIDine 2022-0 2022- No [facility] .1mg Take 1 [place] HCL 6-14 09-[address] [facility] (CATAPRES) 00:00: 23:59 disability mouth 0.1 mg 00 :00 every tablet evening amitriptyli 2021- No [facility] 10mg Take 1 [place] ne (ELAVIL) 6-14 09-12 l tablet by alth 10 mg 00:00: 23:59 disability mouth at tablet 00 :00 bedtime nightly sennosides- 2021- No [facility] 2{tbl} Q.5D Take 2 [place] docusate 6-14 09-12 l tablets by [place] sodium 00:00: 23:59 disability mouth 2 (SENNA 00 :00 (two) PLUS) times a 8.6-50 mg day for 90 tablet days mirtazapine 2021- No [facility] 15mg Take 1 [place] (REMERON) 6-14 09-12 l tablet by [place] 15 mg 00:00: 23:59 disability mouth at tablet 00 :00 bedtime nightly for 90 days lithium 2021- No [facility] 300mg Q.5D Take 1 [place] carbonate 6-14 09-12 [facility] 00:00: 23:59 disability mouth 2 300 mg 00 :00 (two) capsule times a day for 90 days haloperidoL 2021- No [facility] 20mg Take 2 [place] (HALDOL) 10 6-14 09-12 l tablets by ealth mg tablet 00:00: 23:59 disability mouth at 00 :00 bedtime nightly for 90 days cloNIDine 2021- No [facility] .1mg Take 1 [place] HCL 6-14 09-[address] [facility] (CATAPRES) 00:00: 23:59 disability mouth 0.1 mg 00 :00 every tablet evening amitriptyli 2021- No [facility] 10mg Take 1 [place] ne (ELAVIL) 6-14 09-12 l tablet by [facility] 10 mg 00:00: 23:59 disability mouth at tablet 00 :00 bedtime nightly sennosides- 2021-0 2021- No [facility] 2{tbl} Q.5D Take 2 [place] docusate 6-14 09-12 l tablets by [place] sodium 00:00: 23:59 disability mouth 2 (SENNA 00 :00 (two) PLUS) times a 8.6-50 mg day for 90 tablet days mirtazapine 2021- No [facility] 15mg Take 1 [place] (REMERON) 6-14 09-12 l tablet by [place] 15 mg 00:00: 23:59 disability mouth at tablet 00 :00 bedtime nightly for 90 days lithium 2021-0 2021- No [facility] 300mg Q.5D Take 1 [place] carbonate 6-14 09-12 l capsule by [facility] ([facility]) 00:00: 23:59 disability mouth 2 300 mg 00 :00 (two) capsule times a day for 90 days haloperidoL 2021- No [facility] 20mg Take 2 [place] (HALDOL) 10 6-14 09-12 l tablets by ealth mg tablet 00:00: 23:59 disability mouth at 00 :00 bedtime nightly for 90 days cloNIDine 2021-2021- No [facility] .1mg Take 1 [place] HCL 6-14 09-[address] [facility] (CATAPR) 00:00: 23:59 disability mouth 0.1 mg 00 :00 every tablet evening amitriptyli 2021- No [facility] 10mg Take 1 [place] (ELAVIL) 6-14 09-12 l tablet by [facility] 10 mg 00:00: 23:59 disability mouth at tablet 00 :00 bedtime nightly sennosides- 2021-2021- No [facility] 2{tbl} Q.5D Take 2 [place] docusate 6-14 09-12 l tablets by [place] sodium 00:00: 23:59 disability mouth 2 (SENNA 00 :00 (two) PLUS) times a 8.6-50 mg day for 90 tablet days mirtazapine 2021-2021- No [facility] 15mg Take 1 [place] (REMERON) 6-14 09-12 l tablet by [place] 15 mg 00:00: 23:59 disability mouth at tablet 00 :00 bedtime nightly for 90 days lithium 2021-0 2021- No [facility] 300mg Q.5D Take 1 [place] carbonate 6-14 09-12 l capsule by [facility] ([facility]) 00:00: 23:59 disability mouth 2 300 mg 00 :00 (two) capsule times a day for 90 days haloperidoL 2021- No [facility] 20mg Take 2 [place] (HALDOL) 10 6-14 09-12 l tablets by H ealth mg tablet 00:00: 23:59 disability mouth at 00 :00 bedtime nightly for 90 days cloNIDine 2021- No [facility] .1mg Take 1 [place] HCL 6-14 09-12 l tablet by Health (CATAPRES) 00:00: 23:59 disability mouth 0.1 mg 00 :00 every tablet evening amitriptyli 2021- No [facility] 10mg Take 1 [place] (ELAVIL) 6-14 09-12 l tablet by He alth 10 mg 00:00: 23:59 disability mouth at tablet 00 :00 bedtime nightly cloNIDine 2021- No .1mg Take 0.[address] [facility] HCL 6-14 09-12 mg by [facility] (CATAPRES) 00:00: 23:59 mouth. Medi jonatan 0.1 MG 00 :00 Center tablet senna-docus 2021- No 2{tbl} Take [address] ate 6-14 09-12 tablets by [facility] (SENOKOT S) 00:00: 23:59 mouth. Med ical 8.6-50 mg 00 :00 Center per tablet sucralfate 2021-0 Yes 1g Q.25D Take [address] [facility] [address] [facility] (CARAFATE) 6-13 by mouth 4 Chrissie es 1 gram 00:00: (four) Medical tablet 00 times Center daily. sucralfate 2021-0 Yes 1g Q.25D Take [address] [facility] [address] [facility] (CARAFATE) 6-13 by mouth 4 Chrissie es 1 gram 00:00: (four) Medical tablet 00 times Center daily. sucralfate 2022-0 Yes 1g Q.25D Take [address] [facility] [address] [facility] (CARAFATE) 6-13 by mouth 4 Chrissie es 1 gram 00:00: (four) Medical tablet 00 times Center daily. sucralfate 2021-0 Yes 1g Q.25D Take [address] [facility] [address] [facility] (CARAFATE) 6-13 by mouth 4 Chrissie es 1 gram 00:00: (four) Medical tablet 00 times Center daily. sucralfate 2021-0 Yes 1g Q.25D Take [address] [facility] [address] [facility] (CARAFATE) 6-13 by mouth 4 Chrissie es 1 gram 00:00: (four) Medical tablet 00 times Center daily. lithium 300 2021-0 Yes 300mg Q.[id number] Take [address] [facility] MG capsule 5-27 [id number] mg by Amalia kes 00:00: 3D mouth 3 Medical 00 (three) Center times daily. lithium 300 2021-0 Yes 300mg Q.[id number] Take [address] MG capsule 5-27 [id number] mg by Amalia kes 00:00: 3D mouth 3 Medical 00 (three) Center times daily. lithium 300 2021-0 Yes 300mg Q.[id number] Take [address] [facility] MG capsule 5-27 [id number] mg by Amalia kes 00:00: 3D mouth 3 Medical 00 (three) Center times daily. lithium 300 2021-0 Yes 300mg Q.[id number] Take [address] MG capsule 5-27 [id number] mg by Amalia kes 00:00: 3D mouth 3 Medical 00 (three) Center times daily. lithium 300 2021-0 Yes 300mg Q.[id number] Take [address] MG capsule 5-27 [id number] mg by Amalia kes 00:00: 3D mouth 3 Medical 00 (three) Center times daily. mirtazapine 2021-0 Yes 15mg QD Take [...] times Center daily. propranoloL 2021-0 Yes 40mg Q.[id number] Take [address] [facility] (INDERAL) 5-25 [id number] by mouth 3 [facility] 40 MG 16:23: 3D (three) Medical tablet 12 times Center daily. traZODone 2021-0 Yes 100mg QD Take [address] [facility] (DESYREL) 5-25 mg by [facility] 100 MG 16:23: mouth Medical tablet 12 nightly. [place] amitriptyli 0 Yes 10mg QD Take [address] ne (ELAVIL) 5-25 by mouth Luke s 10 MG 16:23: nightly. Medical tablet 12 [place] benztropine 2021-0 Yes 2mg Q.5D Take 2 [...] Medica l 12 times Center daily. mirtazapine 0 Yes 15mg QD Take [address] [facility] (REMERON) 5-25 by mouth [facility] 15 MG 16:23: nightly. Medical tablet 12 [place] OLANZapine 0 Yes 10mg QD Take [address] (ZYPREXA) 5-25 by mouth [facility] 10 MG 16:23: nightly. Medical tablet 12 [place] primidone 2021-0 Yes 50mg Q.25D Take [address] (MYSOLINE) 5-25 by mouth 4 Chrissie es 50 MG 16:23: (four) Medical tablet 12 times Center daily. propranoloL 2021-0 Yes 40mg Q.[id number] Take [address] [facility] (INDERAL) 5-25 [id number] by mouth 3 [facility] 40 MG 16:23: 3D (three) Medical tablet 12 times Center daily. traZODone 2021-0 Yes 100mg QD Take [address] (DESYREL) 5-25 mg by [facility] 100 MG 16:23: mouth Medical tablet 12 nightly. [place] amitriptyli 0 Yes 10mg QD Take [address] [facility] ne (ELAVIL) 5-25 by mouth Luke s 10 MG 16:23: nightly. Medical tablet 12 [place] benztropine 2021-0 Yes 2mg Q.5D Take 2 [...] 15 MG 16:23: nightly. Medical tablet 12 [place] OLANZapine 2021-0 Yes 10mg QD Take [address] (ZYPREXA) 5-25 by mouth [facility] 10 MG 16:23: nightly. Medical tablet 12 [place] primidone 2021-0 Yes 50mg Q.25D Take [address] (MYSOLINE) 5-25 by mouth 4 Chrissie es 50 MG 16:23: (four) Medical tablet 12 times Center daily. propranoloL 2021-0 Yes 40mg Q.[id number] Take [address] [facility] (INDERAL) 5-25 [id number] by mouth 3 [facility] 40 MG 16:23: 3D (three) Medical tablet 12 times Center daily. traZODone 2021-0 Yes 100mg QD Take [address] (DESYREL) 5-25 mg by [facility] 100 MG 16:23: mouth Medical tablet 12 nightly. [place] amitriptyli 2021-0 Yes 10mg QD Take 10 [...] times Center daily. propranoloL 2021-0 Yes 40mg Q.[id number] Take [address] [facility] [facility] (INDERAL) 5-25 [id number] by mouth 3 [facility] 40 MG 16:23: 3D (three) Medical tablet 12 times Center daily. traZODone 2021-0 Yes 100mg QD Take [address] (DESYREL) 5-25 mg by [facility] 100 MG 16:23: mouth Medical tablet 12 nightly. [place] amitriptyli 0 Yes 10mg QD Take [address] [facility] ne (ELAVIL) 5-25 by mouth Luke s 10 MG 16:23: nightly. Medical tablet 12 [place] benztropine 2021-0 Yes 2mg Q.5D Take 2 [...] Medica l 12 times Center daily. amitriptyli 0 Yes 10mg QD Take [address] [facility] ne (ELAVIL) 5-25 by mouth Luke s 10 MG 16:23: nightly. Medical tablet 12 [place] benztropine 2021-0 Yes 2mg Q.5D Take 2 [...] Medica l 12 times Center daily. mirtazapine 0 Yes 15mg QD Take [address] [facility] (REMERON) 5-25 by mouth [facility] 15 MG 16:23: nightly. Medical tablet 12 [place] OLANZapine 0 Yes 10mg QD Take [address] (ZYPREXA) 5-25 by mouth [facility] 10 MG 16:23: nightly. Medical tablet 12 [place] primidone 0 Yes 50mg Q.25D Take [address] (MYSOLINE) 5-25 by mouth 4 Chrissie es 50 MG 16:23: (four) Medical tablet 12 times Center daily. propranoloL 2021-0 Yes 40mg Q.[id number] Take [address] [facility] (INDERAL) 5-25 [id number] by mouth 3 [facility] 40 MG 16:23: 3D (three) Medical tablet 12 times Center daily. traZODone 0 Yes 100mg QD Take [address] (DESYREL) 5-25 mg by [facility] 100 MG 16:23: mouth Medical tablet 12 nightly. [place] polyethylen 2021-0 2021- No 17g QD Take [address] [facility] e glycol 07-30 by mouth [facility] (GLYCOLAX) 00:00: 23:59 daily for ed 17 00 :00 5 days. Center gram/dose powder polyethylen 2021-0 2022- No 17g QD Take [address] [facility] e glycol 07-30 by mouth [facility] (GLYCOLAX) 00:00: 23:59 daily for M edical 17 00 :00 5 days. [facility] gram/dose powder polyethylen No 17g QD Take [address] [facility] e glycol 07-30 by mouth [facility] (GLYCOLAX) 00:00: 23:59 daily for M edical 17 00 :00 5 days. Center gram/dose powder polyethylen 17g QD Take [address] [facility] e glycol 07-30 by mouth [facility] (GLYCOLAX) 00:00: 23:59 daily for M edical 17 00 :00 5 days. Center gram/dose powder polyethylen No 17g QD Take 17 g [facility] [...] kg Systolic blood 2022-01-12 17:37:00 114 mm[Hg] [facility] Diastolic blood 2022-01-12 17:37:00 74 mm[Hg] [facility] Heart rate 2022-01-12 17:37:00 60 /min [facility] Respiratory rate 2022-01-12 17:37:00 16 /min [facility] Oxygen saturation in 2022-01-12 17:37:00 98 /min [facility] Arterial blood by Medical Ce nter Pulse oximetry Body temperature 2022-01-12 15:34:00 36.67 [facility] [facility] Body height 2022-01-12 15:34:00 162.6 cm [facility] Body weight 2022-01-12 15:34:00 54.432 kg [facility] BMI 2022-01-12 15:34:00 20.60 kg/m2 [facility] Systolic blood 2021-12-23 11:21:00 89 mm[Hg] [facility] pressure Diastolic blood 2021-12-23 11:21:00 56 mm[Hg] [facility] pressure Heart rate 2021-12-23 11:21:00 64 /min [facility] Respiratory rate 2021-12-23 11:21:00 18 /min [facility] Body height 2021-12-23 11:21:00 167.6 cm [facility] Body weight 2021-12-23 11:21:00 51.71 kg [place] [facility] BMI 2021-12-23 11:21:00 18.40 kg/m2 [facility] Body temperature 2021-12-16 11:10:[address] [facility] Oxygen saturation in 2021-12-16 11:10:00 97 /min [facility] Arterial blood by Pulse oximetry Respiratory rate 2021-07-30 18:40:00 20 /min [facility] Body height 2021-07-30 18:40:00 177.8 cm [facility] Body weight 2021-07-30 18:40:00 54.1 kg [facility] BMI 2021-07-30 18:40:00 17.11 kg/m2 [facility] Oxygen saturation in 2021-07-30 18:40:00 100 /min [facility] Arterial blood by Medical Ce nter Pulse oximetry Systolic blood 2021-07-30 18:40:00 102 mm[Hg] [facility] Diastolic blood 2021-07-30 18:40:00 60 mm[Hg] [facility] Heart rate 2021-07-30 18:40:00 56 /min [facility] [facility] [place] Body temperature 2021-07-30 18:40:00 36.61 [facility] Procedures Procedure Date / Time Performed Performing Clinician Sour e CBC W/PLT COUNT & AUTO 2022-01-12 16:35:[address] [place] [address] [facility] DIFFERENTIAL [facility] COMPREHENSIVE METABOLIC 2022-01-12 16:35:[address] [place] [address] [facility] PANEL [facility] B-TYPE NATRIURETIC FACTOR 2022-01-12 16:35:[address] [place] [address] [facility] (BNP[facility] CBC W/PLT COUNT & AUTO 2022-01-12 16:35:[address] [place] [address] DIFFERENTIAL [facility] CBC (WITHOUT 2021-12-23 12:16:00 Annie Moon ealth DIFFERENTIAL) COMPREHENSIVE METABOLIC 2021-12-23 12:16:[address] [facility] PANEL HGB/HCT 2021-12-15 15:09:00 Ruthy Matthews Hea [facility]th XRAY MODIFIED BARIUM 2021-12-15 11:40:00 Ruthy Matthews [facility] SWALLOW W CINE/VIDEO (MBS) GLUCOSE POC 2021-12-15 10:53:00 Elida Peter LIVER PROFILE 2021-12-15 04:50:00 Talha Kohli h Malissa P BASIC METABOLIC PANEL 2021-12-15 04:50:00 Talha Kohli P CBC/DIFF 2021-12-15 04:50:00 [facility] CBC 2021-12-15 04:50:00 [facility] DIFFERENTIAL, MANUAL-[facility] 2021-12-15 04:50:00 Mutucumarwillie, [facility] Malissa P XRAY CHEST 1 VIEW 2021-12-14 14:06:00 Ruthy Matthesw ealt 12 LEAD EKG 2021-12-14 14:05:19 Ruthy Matthews akin lt GLUCOSE POC 2021-12-14 14:00:00 Elida Peter PT/INR/PTT 2021-12-14 13:44:00 Tera Quijano h [place] PRO 2021-12-14 13:44:00 QuijanoTera wilson alth COAG STUDIES INTERP 2021-12-14 13:44:00 Tera Quijano REPORT (BKR) CONSULT CLINICAL CASE 2021-12-14 12:14:[address] [facility] MANAGEMENT (RN/SW) Malissa P CBC/DIFF 2021-12-14 09:43:00 Ruthy Matthews [facility]a [facility] CBC 2021-12-14 09:43:00 Ruthy Matthews [facility] lt DIFFERENTIAL, MANUAL-[facility] 2021-12-14 09:43:00 Ruthy Matthews [facility] LITHIUM 2021-12-14 08:35:00 Ruthy Matthews Hea lth LIVER PROFILE 2021-12-14 04:28:00 Seun [place] Lois h Malissa P BASIC METABOLIC PANEL 2021-12-14 04:28:[address] [facility] Malissa P CBC/DIFF 2021-12-14 04:28:00 [facility] CBC 2021-12-14 04:28:00 [facility] RBC MORPHOLOGY-[facility] 2021-12-14 04:28:00 Mutucumarana, [place] [facility] Malissa P LITHIUM 2021-12-13 21:15:00 Mutucumarana, [place] [facility] Malissa P COMMODE AT BEDSIDE 2021-12-13 08:17:33 Eilda Peter H ealth LIVER PROFILE 2021-12-13 04:53:00 Mutucumarana, [place] [facility] Malissa P BASIC METABOLIC PANEL 2021-12-13 04:53:00 Mutucumarana, [place] [facility] Malissa P CBC/DIFF 2021-12-13 04:53:00 Mutucumarana, [place] [facility] Malissa P CBC 2021-12-13 04:53:00 Mutucumarana, [place] [facility] Malissa P LIVER PROFILE 2021-12-12 04:26:00 Mutucumarana, [place] [facility] Malissa P SEQUENTIAL COMPRESSION 2021-12-12 00:42:25 Elida Peter [facility] CBC/DIFF 2021-12-11 04:51:00 Mutucumarana, [place] [facility] Malissa P BASIC METABOLIC PANEL 2021-12-11 04:51:00 Mutucumarana, [facility] Malissa P LIVER PROFILE 2021-12-11 04:51:00 Mutucumarana, [place] [facility] Malissa P CBC 2021-12-11 04:51:00 [facility] RETIC COUNT 2021-12-11 04:51:00 Tera Quijano [place] [facility] U/S ABDOMEN LIMITED 2021-12-10 08:50:[address] [facility] CBC/DIFF 2021-12-10 05:32:00 [facility] BASIC METABOLIC PANEL 2021-12-10 05:32:00 Mutucumarana, [facility] Malissa P LIVER PROFILE 2021-12-10 05:32:00 [facility] CBC 2021-12-10 05:32:00 [facility] FEMUR W CONTRAST 2021-12-09 16:25:48 Ruthy Matthews [facility] [facility] CBC/DIFF 2021-12-09 04:35:00 [facility]ana, [place] [facility] BASIC METABOLIC PANEL 2021-12-09 04:35:00 Mutucumarana, [facility] Malissa P LIVER PROFILE 2021-12-09 04:35:00 [facility] CBC 2021-12-09 04:35:00 Mutucumarana, [facility] h Malissa P VIT D, 25-HYDROXY 2021-12-09 04:35:00 Ruthy Matthews [facility] ealth COMMODE AT BEDSIDE 2021-12-08 21:45:09 Elida Peter [facility] CBC/DIFF 2021-12-08 05:03:00 [facility] BASIC METABOLIC PANEL 2021-12-08 05:03:00 Mutucumarana, [facility] Malissa P LIVER PROFILE 2021-12-08 05:03:00 Mutucumarana, [facility] h Malissa P CBC 2021-12-08 05:03:00 Mutucumarwillie, [facility] h Malissa P INFUSION PUMP 2021-12-07 18:01:36 Elida Peter [facility] CBC/DIFF 2021-12-07 05:21:00 Byron Nathaliataniya [facility] BASIC METABOLIC PANEL 2021-12-07 05:21:00 Compa Matthewsyoseftaniya [facility] LIVER PROFILE 2021-12-07 05:21:00 Elida Peter [facility] LACTATE DEHYDROGENASE 2021-12-07 05:21:00 Elida Peter [facility] HAPTOGLOBIN 2021-12-07 05:21:00 Elida Peter [facility] AMMONIA 2021-12-07 05:21:00 Elida Peter [facility] CBC 2021-12-07 05:21:00 Byron Nathaliataniya [facility] PT/INR/PTT 2021-12-06 05:02:00 [facility] CT ABDOMEN AND PELVIS 2021-12-05 16:10:17 Compa Matthewsyosefvathi [facility] CONTRAST CT CHEST W CONTRAST 2021-12-05 16:10:17 Michael Giraldo [facility] PATHOLOGIST REVIEW 2021-12-05 04:08:00 Tera Quijano [facility] SAVE SMEAR/ NOT FOR PATH 2021-12-05 04:08:00 Tera Quijano [facility] Health REVIEW LEAD, WHOLE BLOOD (ADULT) 2021-12-04 11:14:[address] [facility] DIRECT ANTIGLOBULIN TEST 2021-12-04 10:15:00 Seun [facility] BETZY/ DIRECT MARINA Malissa Martin HIV AG/AB COMBO ROUTINE 2021-12-04 10:15:00 Alma Kohli [facility] SCREENING Malissa Martin HEPATITIS PANEL 2021-12-04 10:15:00 Seun [facility] Malissa P HEMOGLOBIN A1C 2021-12-04 04:06:00 Seun [facility] Malissa Martin LACTATE DEHYDROGENASE 2021-12-04 04:06:[address] [facility] ([facility] Malissa P CBC/DIFF 2021-12-04 04:06:00 Ruthy Matthews [facility] BASIC METABOLIC PANEL 2021-12-04 04:06:00 Ruthy Matthews [facility] CBC 2021-12-04 04:06:00 Ruthy Matthews [facility] RETIC COUNT 2021-12-04 04:06:00 [facility] SAVE SMEAR/ NOT FOR PATH 2021-12-04 04:06:00 Seun [facility] REVIEW Malissa P FREE T4 2021-12-04 04:06:00 Ruthy Matthews [facility] URINALYSIS W/REFLEX TO 2021-12-03 16:54:00 Seun [facility] URINE CULTURE Malissa P URINALYSIS 2021-12-03 16:54:00 [facility] URINE CULTURE COLLECTION 2021-12-03 16:54:00 Seun [facility] KIT Malissa P NUTRITION CONSULT 2021-12-03 07:40:36 Talha Kohli [facility] lt ASSESSMENT Malissa P IRON PROFILE 2021-12-03 04:44:00 Mutucumarwillie, [facility] h Malissa P CBC/DIFF 2021-12-03 04:44:00 Mutucumarwillie, [facility] Malissa P CBC 2021-12-03 04:44:00 Mutucumarwillie, [facility] Malissa P THYROID STIMULATING 2021-12-03 04:44:00 Seun, [facility] ealth HORMONE (TSH) Malissa P VITAMIN B12 2021-12-03 04:44:00 Mutucumarana, [facility] Malissa P FOLIC ACID 2021-12-03 04:44:00 [facility]willie[facility] FREE T4 2021-12-03 04:44:00 [facility]umarwillie[facility] HAPTOGLOBIN 2021-12-03 04:44:00 Nateucumarana, [facility] Malissa P SAVE SMEAR/ NOT FOR PATH 2021-12-03 04:44:00 Mutucumarwillie, [facility] REVIEW Malissa P SEQUENTIAL COMPRESSION 2021-12-03 03:19:55 Seun, [facility] PUMP Malissa P SARS-COV-2, FLU A/B, RSV 2021-12-03 01:06:00 [facility] CORONAVIRUS, COVID-19, 2021-12-03 01:06:00 Pan Judith [facility] YOSHI CREATININE POC 2021-12-02 20:31:00 Lion Parry [facility] Kym BMP POC 2021-12-02 20:31:00 Lion Parry [facility] Kym CBC/DIFF 2021-12-02 20:17:[address] [facility] CBC 2021-12-02 20:17:[address] [facility] LITHIUM 2021-12-02 20:17:00 Moe Sim [facility] COMPREHENSIVE METABOLIC 2021-12-02 20:17:00 Seun [facility] PANEL Malissa P FERRITIN 2021-12-02 20:17:00 Talha Kohli Malissa P CT HEAD W/O CONTRAST 2021-12-02 18:26:[address] [facility] CT ABDOMEN/PELVIS WITH IV 2021-07-30 20:25:00 Brii Campbell [facility] CBC W/PLT COUNT & AUTO 2021-07-30 19:37:[address] [facility] BASIC METABOLIC PANEL (7) 2021-07-30 19:37:00 Brii Campbell [facility] PROTHROMBIN TIME/INR 2021-07-30 19:37:00 Brii Campbell [facility] CBC W/PLT COUNT & AUTO 2021-07-30 19:37:[address] [facility] Plan of Care Planned Activity Planned Date Details Comments Source Future Scheduled 2025-07-17 DTAP/TDAP/TD [facility] VACCINES (2 - Td or Medical Center Tdap) [code = DTAP/TDAP/TD VACCINES (2 - Td or Tdap)] Future Scheduled 2025-07-17 DTAP/TDAP/TD [facility] 00:00:00 VACCINES (2 - Td or Medical Center Tdap) [code = DTAP/TDAP/TD VACCINES (2 - Td or Tdap)] Future Scheduled 2025-07-17 DTAP/TDAP/TD [facility] Test 00:00:00 VACCINES (2 - Td or Medical Center Tdap) [code = DTAP/TDAP/TD VACCINES (2 - Td or Tdap)] Future Scheduled 2025-07-17 DTAP/TDAP/TD [facility] Test 00:00:00 VACCINES (2 - Td or Medical Center Tdap) [code = DTAP/TDAP/TD VACCINES (2 - Td or Tdap)] Future Scheduled 2025-07-17 DTAP/TDAP/TD [facility] [...] 18 yrs)] Future Scheduled 2022-03-[address] [...] Future Scheduled 2022-03-[address] [facility] Test 00:00:00 (#1) [code = Medical Center INFLUENZA VACCINE (#1)] Future Scheduled 2022-03-[address] [facility] Test 00:00:00 (#1) [code = Medical Center INFLUENZA VACCINE (#1)] Future Scheduled 2022-03-03 INFLUENZA VACCINE [facility] Test 12:27:23 [code = INFLUENZA VACCINE] Future Scheduled 2022-03-03 HEPATITIS B VACCINES Met [facility] Test 12:27:23 (1 of 3 - 3-dose series) [code = HEPATITIS B VACCINES (1 of 3 - 3-dose series)] Future Scheduled 2022-03-03 COVID-19 VACCINE Methodi [facility] Test 12:27:23 (#1) [code = COVID-19 VACCINE (#1)] Future Scheduled 2022-03-03 HEPATITIS B VACCINES Met [facility] Test 12:27:23 (1 of 3 - 3-dose series) [code = HEPATITIS B VACCINES (1 of 3 - 3-dose series)] Future Scheduled 2022-03-03 COVID-19 VACCINE Methodi [facility] Test 12:27:23 (#1) [code = COVID-19 VACCINE (#1)] Future Scheduled 2022-03-03 INFLUENZA VACCINE [facility] Test 12:27:23 [code = INFLUENZA VACCINE] Future Scheduled 2022-02-19 [facility] 10:27[facility]57 (#1) [code = COVID-19 VACCINE (#1)] Future Scheduled 2022-02-19 INFLUENZA VACCINE [facility] Test 10:27:57 [code = INFLUENZA VACCINE] Future Scheduled 2022-02-19 HEPATITIS B VACCINES Met [facility] Test 10:27:57 (1 of 3 - 3-dose series) [code = HEPATITIS B VACCINES (1 of 3 - 3-dose series)] Future Scheduled 2022-02-19 [facility] 10:27:57 (#1) [code = COVID-19 VACCINE (#1)] Future Scheduled 2022-02-19 INFLUENZA VACCINE Method [facility] Test 10:27:57 [code = INFLUENZA VACCINE] Future Scheduled 2022-02-19 HEPATITIS B VACCINES Met [facility] Test 10:27:57 (1 of 3 - 3-dose series) [code = HEPATITIS B VACCINES (1 of 3 - 3-dose series)] Future Scheduled 2022-02-19 COVID-19 VACCINE Methodi Hospital Test 10:27:57 (#1) [code = COVID-19 VACCINE (#1)] Future Scheduled 2022-02-19 INFLUENZA VACCINE Method is Hospital Test 10:27:57 [code = INFLUENZA VACCINE] Future Scheduled 2022-02-19 HEPATITIS B VACCINES Met [facility] Test 10:27:57 (1 of 3 [...] Test 00:00:00 (procedure) [code = Medical Center [id number]] Future Scheduled 2019-11-[address] [facility] Test 00:00:00 (procedure) [code = [facility] [id number]] Future Scheduled 2019-11-[address] [facility] Test 00:00:00 (procedure) [code = [facility] [id number]] Future Scheduled 2019-11-[address] [facility] Test 00:00:00 (procedure) [code = Medical Center [id number]] Future Scheduled 2019-11-[address] [facility] Test 00:00:00 (procedure) [code = Medical Center [id number]] Future Scheduled 2019-11-[address] [facility] Test 00:00:00 (procedure) [code = Medical Center [id number]] Future Scheduled 2019-11-[address] [facility] Test 00:00:00 (procedure) [code = Medical Center [id number]] Future Scheduled 2019-11-[address] [facility] Test 00:00:00 (procedure) [code = Medical Center [id number]] Future Scheduled 2019-11-[address] [facility] Test 00:00:00 (procedure) [code = Medical Center [id number]] Future Scheduled 2019-11-[address] Test 00:00:00 (procedure) [code = [facility] [id number]] Future Scheduled 2011-01-[address] [...] Medical Center COVID-19 VACCINE (#1)] Future Scheduled [address] [facility] Test 00:00:00 [code = Fluoride Varnish] Future Scheduled [address] [facility] Test 00:00:00 [code = Fluoride Varnish] Future Scheduled [address] [facility] Test 00:00:00 [code = Fluoride Varnish] Future Scheduled [address] [facility] Test 00:00:00 [code = Fluoride Varnish] Future Scheduled [address] [facility] Test 00:00:00 [code = Fluoride Varnish] Encounters Start End Encounter Admission Attending Care Care Encounter Source Date/Time Date/Time Type Type Clinicians Facility Department ID 2022-02-08 Outpatient [facility] [id number] [place] 12:40:[id number] [facility] 2022-01-25 Outpatient [facility] [id number] [place] 13:48:[id number] [facility] 2022-01-15 Outpatient DIAMOND, [facility] [id number] [facility] 09:20:35 WANDA 2022-05-03 2022-05-03 Outpatient [facility] [id number] [place] 00:00:00 00:00:00 KAMILLE henley 2022-04-05 2022-04-05 Outpatient [facility] [id number] [place] 00:00:00 00:00:00 KAMILLE henley 2022-03-12 2022-03-12 Outpatient GC_BAHC_Tod PRIV PRIV [id number] [facility] 00:00:00 00:00:00 Cecilia [id number] Medica l 2022-03-05 2022-03-05 Outpatient Vijay, PRIV PRIV [id number] [id number] 00:00:00 00:00:00 Mariela [id number] 2022-03-02 2022-03-02 Outpatient Vijay, PRIV PRIV [id number] 00:00:00 00:00:00 Mariela [id number] 2022-02-28 2022-02-28 Outpatient GC_BAHC_Tod PRIV PRIV [id number] [facility] 00:00:00 00:00:00 dDiana [id number] Medica l 2022-02-25 2022-02-25 Outpatient Lizbeth, PRIV PRIV [id number] 00:00:00 00:00:00 Damir Umana [id number] 2022-02-23 2022-02-23 Outpatient Vijay, PRIV PRIV [id number] 00:00:00 00:00:00 Mariela [id number] 2022-02-19 2022-02-19 Outpatient GC_BA[facility]_Tod PRIV PRIV [id number] [facility] 00:00:00 00:00:00 d_J [id number] Medica l 2022-02-19 2022-02-19 Outpatient Vijay, PRIV PRIV [id number] 00:00:00 00:00:00 Mariela [id number] 2022-02-18 2022-02-18 Outpatient GC_BAHC_Tod PRIV PRIV [id number] [facility] 00:00:00 00:00:00 d_J [id number] Medica l 2022-01-26 2022-02-16 [facility] [id number] [place] 14:02:00 21:42:00 RITUBALDO l [facility] 2022-01-26 2022-02-16 [id number] 14:02:00 21:42:00 Ritubaldo 07 2022-02-02 2022-02-02 [id number] [place] 00:00:00 00:00:00 [facility] 2022-01-18 2022-01-26 Inpatient E DARIO LOWE MED [id number] 10:31:00 12:59:00 ARVIND 2022-01-16 2022-01-26 Outpatient BAILEY LowePL [id number] 07:55:41 12:59:00 Arvind 2022-01-16 2022-01-[address] [id number] 07:55:41 12:59:00 Arvind 07 2022-01-16 2022-01-[address] [id number] 07:55:41 07:55:41 Chris 07 Lorna 2022-01-12 2022-01-12 Emergency ER Ai, [facility] [id number] 16:19:00 17:42:00 [facility] 2022-01-12 2022-01-12 Emergency ER AI, [facility] Emergency [id number] SLS 16:19:00 17:42:00 [facility] 2022-01-12 2022-01-12 Emergency [place], [facility] [id number] 16:19:00 17:42:00 [facility] 2022-01-12 2022-01-12 Travel [facility] [id number] [facility] 00:00:00 00:00:00 [facility] 2022-01-12 2022-01-12 Travel [facility] [id number] [facility] 00:00:00 00:00:00 [facility] 2022-01-08 2022-01-08 Emergency [facility]ain [facility] [id number] [facility] 12:40:00 18:44:00 95 [facility] [place] 2022-01-08 2022-01-08 Emergency Zain Degroot [facility] LA61 [facility] 12:40:00 18:44:00 [id number] [facility] [place] 2022-01-07 2022-01-07 Orders Betty, [facility] [id number] Talha 00:00:00 00:00:00 [facility] 2022-01-07 2022-01-07 Orders Betty [facility] [id number] Talha 00:00:00 00:00:00 Only Meroe [facility] 2021-12-23 2021-12-23 Outpatient SARAI [facility] [id number] Talha 12:11:26 12:16:15 ANNIE Health 2021-12-23 2021-12-23 Office Sarai [facility] [id number] [place] 11:00:00 12:16:02 Visit Annie henley 2021-12-23 2021-12-23 [facility] [id number] [place] 11:00:00 12:16:02 Visit Annie henley 2021-12-23 2021-12-23 [id number] [place] 00:00:00 00:00:00 ANNIEFRIDA Cardenas 2021-12-23 2021-12-23 [facility] [id number] [place] 00:00:00 00:00:00 Only Annie henley 2021-12-23 2021-12-23 [facility] [id number] [place] 00:00:00 00:00:00 Only Annie henley 2021-12-02 2021-12-16 Emergency Kym Gutierrez [facility] [id number] [place] 16:49:00 11:54:00 Marla Bai Joslyn W Mutucumarana, Charmaine P 2021-12-02 2021-12-16 Emergency Kym Gutierrez [facility] [id number] [place] 16:49:00 11:54:00 Marla Bai Joslyn W Mutucumarana, Charmaine P 2021-12-15 2021-12-15 Outpatient [facility] [id number] [place] 11:10:10 11:58:48 Health 2021-12-14 2021-12-14 Outpatient [facility] [id number] [place] 15:58:03 15:58:08 Health 2021-12-14 2021-12-14 Outpatient [facility] [id number] [place] 13:56:45 14:11:44 Health 2021-12-10 2021-12-10 Outpatient [facility] [id number] [place] 08:04:54 09:52:59 Health 2021-12-09 2021-12-09 Outpatient [facility] [id number] [place] 14:31:10 16:27:35 Health 2021-12-05 2021-12-05 Outpatient [facility] [id number] [place] 15:47:31 16:10:42 [facility] 2021-12-05 2021-12-05 Outpatient SARAH, [facility] [id number] [place] 00:00:00 00:00:00 [facility] 2021-12-02 2021-12-02 Emergency LION [facility] [id number] [place] 17:25:24 18:26:13 [facility] 2021-12-02 2021-12-02 Outpatient 1 SARAH, [facility] [id number] [place] 16:49:00 16:49:00 [facility] 2021-12-01 2021-12-01 Outpatient JALAL, MHFB MHFB [id number] MHFB 06:20:00 12:40:00 WANDA 2021-12-01 2021-12-01 Outpatient Jalal, MHSL MHSL [id number] 06:20:00 12:40:[address] [place] [address] 2021-12-01 2021-12-01 Outpatient Jalal, MHSL MHSL [id number] 08:00:00 08:00:00 Wanda 05 [place] 2021-11-25 2021-11-25 Emergency Ojiaku, [facility] [id number] [facility] 16:20:00 16:55:00 [facility] 2021-11-25 2021-11-25 Emergency ER ORHETTU, [facility] Emergency [id number] [facility] 16:20:00 16:55:00 [facility] 2021-11-25 2021-11-25 Emergency Ojiaku, [facility] [id number] 16:20:00 16:55:00 [facility] 2021-07-31 2021-07-31 Travel [facility] [id number] [facility] 00:00:00 00:00:00 [facility] 2021-07-31 2021-07-31 Travel [facility] [id number] [facility] 00:00:00 00:00:00 [facility] 2021-07-30 2021-07-30 Emergency ER Brii Campbell [facility] [id number] 19:14:00 21:58:00 [facility] 2021-07-30 2021-07-30 Emergency ER BRII CAMPBELL [facility] Emergency [id number] [facility] 19:14:00 21:58:00 2021-07-30 2021-07-30 Emergency Brii Campbell [facility] [id number] 19:14:00 21:58:00 [facility] 2018-07-01 2018-07-01 Outpatient Amytennilleho, PL MHPL [id number] 18:27:00 22:12:00 Jazmin 01 [place] 2018-06-27 2018-06-29 Outpatient Hammonds, PL PL [id number] 20:48:00 19:05:00 Ugochi 04 Kianna 2017-12-30 2017-12-30 Outpatient Iheme, Rony PL PL [id number] 10:30:00 12:31:00 U 03 2016-10-04 2016-10-08 Outpatient Ajao, PL PL [id number] 13:28:00 15:10:00 Annette 02 Yasmin 2016-04-17 2016-04-17 Outpatient Savita, PL PL [id number] 10:11:00 13:54:00 Ambica 2015-07-17 2015-07-18 Outpatient Vijay Combs [facility] [id number] 14:28:00 12:05:00 King 2015-07-17 2015-07-17 Outpatient Taoist, SE SE [id number] 11:42:00 14:15:00 Nadim B 00 Results Test Description Test Time Test Comments Results Result Comments Source B-TYPE NATRIURETIC FACTOR (BNP) 2022-01-12 17:12:09 Test Item Value Reference Range Interpretation Comme nts B-TYPE NATRIURETIC PEPTIDE (BEAKER) (test code = 700) 69 pg/mL 0-100 Graphics Software Engineer ID - [id number] METABOLIC [id number] 17:06:08 Test Item Value Reference Range Interpretation [...] S NOT APPLICABLE FOR DIALYSIS PATIEN TS. Graphics Software Engineer ID - [id number] ID - [id number] ID - [id number] ID - [id number] ID - HLRTC173Iozwbspp ID - FEYZJ010Adbeevpu ID - LVKQD473Zylothyi ID - PIWSZ580Lziitfzr ID - JTOFI710Vvwtisia ID - DUBSR023Nzhnxqki ID - MBNXW013Ooelritd ID - MZJSC035Ykzegczx ID - QDAQQ626Iowjqqtb ID - EKLTU336Dgopmlti ID - HFIHV500Zlrrebxv ID - ODOYJ928Jssbvatk ID - CISBL511Jlkepayy ID - PEBIH567Qymsyibv ID - JBZSN196LOD W/PLT COUNT & AUTO [id number] 16:49:25 Test Item Value Reference Range Interpretation [...] code = 2801) - CTA CHEST FOR [id number] 18:27:00 [facility] [place] [place] : 1985 Sex: M Name: VERÓNICA NUNN [facility] : 1985 Age/S: 36 / M [id number] Unit #: [id number] Loc: [place] [address] Phys: MaurijoseZain Acct: [id number] Dis Date: Status: REG ER PHONE #: [phone] Exam Date: 01/08/2022 1804 FAX #: Reason: evaluate for PE EXAMS: CPT: [id number] [place] [address] EXAM: - CTA CHEST FOR PE LOCATION: H57 HISTORY: 36 years-year old Male with evaluate for PE TECHNIQUE: Axial tomograms through the chest were obtained after intravenous contrast utilizing pulmonary embolus protocol. Coronal and sagittal reformatted images are provided. At least one MIP sequence was provided. This exam was performed according to our departmental dose-optimization program, which includes automated exposure control, adjustment of the mA and/or kV according to patient size and/or use of iterative reconstruction technique. COMPARISON: None available time of interpretation. FINDINGS: Vasculature: No filling defects are seen in the pulmonary arteries to the segmental level. The pulmonary trunk and main pulmonary arteries are normal in caliber.The thoracic aorta is normal in caliber without dissection. Lungs: The lungs are clear. Pleura: No effusions or pneumothorax. Mediastinal:There is no pericardial effusion. The trachea is unremarkable. The esophagus is grossly unremarkable. Lymph nodes: There is no mediastinal, hilar, or axillary adenopathy. Bones: No acute osseous findings. Soft tissues: Severe anasarca. Visualized abdomen: Unremarkable. IMPRESSION: 1. No pulmonary embolism to the segmental level. 2. Severe anasarca. PAGE 1 Signed Report (CONTINUED) Name: GIGI NUNN [place] : 1985 Age/S: 36 / M [address] Unit #: [id number] Loc: [place] [address] Phys: Zain David DO Acct: [id number] Dis Date: Status: REG ER PHONE #: [phone] Exam Date: 01/08/2022 1801 FAX #: Reason: evaluate for PE EXAMS: CPT: [id number] [place] [address] (Continued) at 1827 Reported and signed by: Ba Anaya M.D. CC: Zain David DO Technologist:Abram Prasad, RT(R) CTDI: DLP: Trnscb Date/Time: 01/08/2022 (182) SaraMKW1 Orig Print D/T: S: 01/08/2022 (1830) PAGE 2 Signed Report- [facility] OWW7219-02-21 16:52:00 [facility] : 1985 Sex: M Name: VERÓNICA NUNN [place] : 1985 Age/S: 36 / M [address] Unit #: [id number] Loc: [place] [address] Phys: Zain David DO Acct: [id number] Dis Date: Status: REG ER PHONE #: [phone] Exam Date: 01/08/20221647 FAX #: Reason: swelling EXAMS: CPT: [id number] DUP VEIN COMFORT 56694 EXAM: - DUP VEIN COMFORT LOCATION: H65 HISTORY: swelling TECHNIQUE: Grayscale real-time B-mode imaging with color flow and spectral flow Doppler analysis was performed of the bilateral lower extremities. COMPARISON: None available. FINDINGS: There is normal compressibility with no evidence of thrombus in the visualized venous structures of the bilateral lower extremities. IMPRESSION: No DVT in the visualized venous structures of the bilateral lower extremities. Electronically Signed by Dulce Maria Suero on01/08/2022 at 1652 Reported and signed by: Rolo Suero D.O. CC: Zain David DO Technologist: Kianna Cardenas Trnscb Date/Time: 01/08/2022 (1651) SaraJW22 PAGE 1 Signed Report Name: VERÓNICA NUNN [facility] : 1985 Age/S: 36 / M [address] Unit #: [id number] Loc: [place] [address] Phys: Zain David Acct: [id number] Dis Date: Status: REG ER PHONE #: [phone] Exam Date: 01/08/20221647 FAX #: Reason: swelling EXAMS: CPT: [id number] DUP VEIN COMFORT 81667 (Continued) Orig Prin t D/T: S: 01/08/2022 (304) Probe: PAGE 2 Signed ReportTROP-I HIGH SENSITIVITY 2022-01-08 15:07:00 Test Item Value Reference Range Interpretation [...] varyby method. Completed by Nursing: NOBASIC METABOLIC JCPKS9066-43-74 15:07:00 Test Item Value Reference Range Interpretation [...] N Completed by Nursing: NONT PRO-BRAIN NATRIURETIC CLRIX4283-30-19 15:07:00 Test Item Value Reference Range Interpretation Comments NT PRO-BRAIN NATRIURETIC PEPTI 163 PG/ML 0-100 H (test code = PROBNP) Completed by Nursing: ICK-DLLQM3618-42-08 15:04:00 Test Item Value Reference Range Interpretation [...] STS AND APPROPRIATECLIN ICAL EUALUATIONS. HEPATIC FUNCTION PZEQX2531-06-12 14:58:00 Test Item Value Reference Range Interpretation [...] 50-136 N code = ALKP) CBC W/O TPXM3496-29-05 14:41:00 Test Item Value Reference Range Interpretation [...] 7.0-9.6 H MPV) - XR CHEST 1 [id number] 14:24:00 [facility]UNN : 1985 Sex: M Name: VERÓNICA NUNN [place] : 1985 Age/S: 36 / M [address] Unit #: [id number] Loc: [place] [address] Phys: Zain David DO Acct: [id number] Dis Date: Status: REG ER PHONE #: [phone] Exam Date: 01/08/2022 1418 FAX #: Reason: chest pain EXAMS: CPT: [id number] XR CHEST 1 V 81638 Fluoro Time: DAP (Gy m2): Air Kerma (mGy): Site ID: [id number] HISTORY: Chest pain COMPARISON: None FINDINGS: Patchy bibasilar infiltrates may reflect pneumonia or atelectasis. The heart and pulmonary vasculature is normal. Osseous structures are unremarkable. IMPRESSION: Patchy bibasilar infiltrates may reflect pneumonia or atelectasis at 1424 Reported and signed by: Raymundo Delacruz M.D. CC: Zain David DO PAGE 1 Signed Report Name: VERÓNICA NUNN [place] : 1985 Age/S: 36 / M [address] Unit #: [id number] Loc: [place] [address] Phys: Zain David DO Acct: [id number] Dis Date: Status: REG ER PHONE #: [phone] Exam Date: 01/08/2022 1418 FAX #: Reason: chest pain EXAMS: CPT: [id number] XR CHEST 1 V 57729 Fluoro Time: DAP (Gy m2): Air Kerma (mGy): (Continued) Technologist: Vladislav Moreno, RT(R)(CT) Trnscb Date/Time: 01/08/2022 (695) SaraAJP6 Orig Print D/T: S: 01/08/2022 (4538) PAGE 2 [facility]igned [facility] fiywzf9944-13-12 10:55:52 Test Item Value Reference Range Interpretation Comments Glucose POC (test code = 86501170) 79 mg/dL 74-106 Lab Interpretation (test code = Normal 51137-4) [facility] GLUCOSE POC docked pqqfma0727-40-86 10:55:52 Test Item Value Reference Range Interpretation Comments Glucose POC (test code = 07905109) 79 mg/dL 74-106 Lab Interpretation (test code = Normal 04351-7) [facility] GLUCOSE POC docked spupoa5344-23-52 10:55:52 Test Item Value Reference Range Interpretation Comments Glucose POC (test code = 35090992) 79 mg/dL 74-106 Lab Interpretation (test code = Normal 57752-6) [facility] GLUCOSE POC docked ffltyl5725-02-60 10:55:52 Test Item Value Reference Range Interpretation Comments Glucose POC (test code = 25122118) 79 mg/dL 74-106 Lab Interpretation (test code = Normal 45486-3) [facility] GLUCOSE POC docked dpdtqc1412-12-97 10:55:52 Test Item Value Reference Range Interpretation Comments Glucose POC (test code = 83350772) 79 mg/dL 74-106 Lab Interpretation (test code = Normal 20676-9) [place] [address] Lead [id number] 14:05:1912 LEAD EKG FOR [facility] Test Date: 6955-42-54Fvh Name: VERÓNICA CLARK Department: 5CMSPatient ID: [id number] Room: Gender: M 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1985 Requested By: MISAEL VELÁZQUEZ EOrder Number: [id number] Naya MD: Rosa Santa MeasurementsIntervals [place] Rate: 90 P: 73PR:142 QRS: 90QRSD: 104 T: 69QT: 345 QTc: [address] ELEVATION [0.05+ mV ST ELEVATION]Electronically Signed On 12-14-2021 14:05:45 CDT by Rosa [facility] Hgycke04 Lead [id number] 14:05:1912 LEAD EKG FOR [facility] Test Date: 9178-77-49Puo Name: VERÓNICA CLARK Department: 5CMSPatient ID: [id number] Room: Gender: M 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: 1985 Requested By: MISAEL HUIZARrder Number: [id number] Reading MD: Rosa Santa MeasurementsIntervals [place] Rate: 90 P: 73PR:142 QRS: 90QRSD: 104 T: 69QT: 345 QTc: 393 Interpretive StatementsS[address] RHY[address] ST ELEVATION [0.05+ mV ST ELEVATION]Electronically Signed On 12-14-2021 14:05:45 CDT by Rosa [facility] Xykoqw10 Lead [id number] 14:05:1912 LEAD EKG FOR [facility] Test Date: 4336-15-54Jpr Name: VERÓNICA CLARK Department: 5CMSPatient ID: [id number] Room: Gender: M 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: 1985 Requested By: MISAEL Lacyer Number: [id number] Reading MD: Rosa Santa MeasurementsIntervals [place] Rate: 90 P: 73PR:142 QRS: 90QRSD: 104 T: 69QT: 345 QTc: 393 Interpret[address] Statements[address] ELEVATION [0.05+ mV ST ELEVATION]Electronically Signed On 12-14-2021 14:05:45 CDT by Rosa [facility] Ebwmtx33 Lead [id number] 14:05:1912 LEAD EKG FOR [facility] Test Date: 7472-34-99Oak Name: VERÓNICA CLARK Department: 5CMSPatient ID: [id number] Room: Gender: M 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: 1985 Requested By: MISAEL Lacyer Number: [id number] Reading MD: Rosa Santa MeasurementsIntervals [place] Rate: 90 P: 73PR:142 QRS: 90QRSD: 104 T: 69QT: 345 QTc: 393 Interpret[address] Statements[address] ELEVATION [0.05+ mV ST ELEVATION]Electronically Signed On 12-14-2021 14:05:45 CDT by [employer]12 Lead [id number] 14:05:1912 LEAD EKG FOR [facility] Test Date: 1301-08-92Aqc Name: VERÓNICA CLARK Department: 5CMSPatient ID: [id number] Room: Gender: M 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1985 Requested By: MISAEL VELÁZQUEZ EOrder Number: [id number] Reading MD: Rosa Santa MeasurementsIntervals [place] Rate: 90 P: 73PR:142 QRS: 90QRSD: 104 T: 69QT: 345 QTc: [address] ELEVATION [0.05+ mV ST ELEVATION]Electronically Signed On 12-14-2021 14:05:45 CDT by Kilimanjaro EnergyHIV 1+2 Ab+HIV1 p24 Ag SerPl Ql [id number] 11:54:50 Test Item Value Reference Range Interpretation Comments HIV 1+2 Ab+HIV1 p24 Ag SerPl Ql IA NEGATIVE Negative (test code = 84419-1) Coronavirus, CoVID-19, [id number] 02:25:42 Test Item Value Reference Interpretation Comments Range COVID-19 Not Detected Not Detected INTERPRETATION: (SARS-COV-2) (test No detect able code = 13622-9) levels of SARS-CoV-2 Coronavirus (COVID-19) were present [...] its performance characteristics were verified by the [facility] molecular diagnostics laboratory and is authorized for clinical diagnostic use. This laboratory is certified under the Clinical Laboratory Improvement Amendments (CLIA) as qualified to perform high complexity clinical laboratory testing. Lab Interpretation Normal (test code = 55319-7) Talha CardenasCoronavirus, CoVID-19, [id number] 02:25:42 Test Item Value Reference Interpretation Comments Range COVID-19 Not Detected Not Detected INTERPRETATION: (SARS-COV-2) (test No detect able code = 52775-4) levels of SARS-CoV-2 Coronavirus (COVID-19) were present [...] its performance characteristics were verified by the [facility] molecular diagnostics laboratory and is authorized for clinical diagnostic use. This laboratory is certified under the Clinical Laboratory Improvement Amendments (CLIA) as qualified to perform high complexity clinical laboratory testing. Lab Interpretation Normal (test code = 89259-7) Palencia Coraronavirus, CoVID-19, [id number] 02:25:42 Test Item Value Reference Interpretation Comments Range COVID-19 Not Detected Not Detected INTERPRETATION: (SARS-COV-2) (test No detect able code = 73487-9) levels of SARS-CoV-2 Coronavirus (COVID-19) were present [...] its performance characteristics were verified by the [facility] molecular diagnostics laboratory and is authorized for clinical diagnostic use. This laboratory is certified under the Clinical Laboratory Improvement Amendments (CLIA) as qualified to perform high complexity clinical laboratory testing. Lab Interpretation Normal (test code = 83945-3) [facility], [id number] 02:25:42 Test Item Value Reference Interpretation Comments Range COVID-19 Not Detected Not Detected INTERPRETATION: (SARS-COV-2) (test No detect able code = 50007-6) levels of SARS-CoV-2 Coronavirus (COVID-19) were present [...] its performance characteristics were verified by the [facility] molecular diagnostics laboratory and is authorized for clinical diagnostic use. This laboratory is certified under the Clinical Laboratory Improvement Amendments (CLIA) as qualified to perform high complexity clinical laboratory testing. Lab Interpretation Normal (test code = 10207-0) [facility], [facility]-19, [id number] 02:25:42 Test Item Value Reference Interpretation Comments Range COVID-19 Not Detected Not Detected INTERPRETATION: (SARS-COV-2) (test No detect able code = 19754-7) levels of SARS-CoV-2 Coronavirus (COVID-19) were present [...] its performance characteristics were verified by the [facility] molecular diagnostics laboratory and is authorized for clinical diagnostic use. This laboratory is certified under the Clinical Laboratory Improvement Amendments (CLIA) as qualified to perform high complexity clinical laboratory testing. Lab Interpretation Normal (test code = 44210-0) [facility] HospitalEpptfwGPOD-RgO-9 RNA Resp Ql YOSHI+zcxky1766-75-64 02:25:42 Test Item Value Reference Range Interpretation Comments Hospitalized? (test No code = 69109-8) ICU? (test code = No 20674-5) Symptomatic as defined No by CDC? (test code = 70347-6) Employed in No Healthcare? (test code = 68563-5) Resident in a No congregate care setting (including nursing homes, residential care for people with intellectual and developmental disabilities, psychiatric treatment facilities, group homes, board and care homes, homeless senior living, foster care or other): (test code = 88375-6) SARS-CoV-2 RNA Resp Ql NOT DETECTED Not Detected INTER PRETATION: No YOSHI+probe (test code = detec table levels 76176-6) of SARS-CoV-2 Coronavirus (COVID-19) were present in [...] its performance characteristics were verified by the [facility] molecular diagnostics laboratory and is authorized for clinical diagnostic use. This laboratory is certified under the Clinical Laboratory Improvement Amendments (CLIA) as qualified to perform high complexity clinical laboratory testing.POCT BMP POC docked device 2021-12-02 20:33:07 Test Item Value Reference Range Interpretation Comments Sodium POC (test code = 134 mmol/L 136-145 L 01540631) Potassium POC (test code 4.2 mmol/L 3.5-5.1 = 73789762) Chloride POC (test code 103 mmol/L 98-107 = 22115450) TCO2 POC (test code = 28 mmol/L 21-32 Physic alden Notified 01306592) Urea Nitrogen POC (test 12 mg/dL 7-18 code = 00062339) Glucose POC (test code = 76 mg/dL 74-106 20495342) Hemoglobin POC (test 7.1 g/dL 12-16 L code = 72884987) Hematocrit POC (test 21.0 % 37.0-47.0 L code = 47319817) Lab Interpretation (test Abnormal code = 93097-8) [facility] POC docked arqwku4818-97-67 20:33:07 Test Item Value Reference Range Interpretation Comments Sodium POC (test code = 134 mmol/L 136-145 L 46858001) Potassium POC (test code 4.2 mmol/L 3.5-5.1 = 44022314) Chloride POC (test code 103 mmol/L 98-107 = 92185469) TCO2 POC (test code = 28 mmol/L -32 Physic alden Notified 83604428) Urea Nitrogen POC (test 12 mg/dL 7-18 code = 91617851) Glucose POC (test code = 76 mg/dL 74-106 56813979) Hemoglobin POC (test 7.1 g/dL 12-16 L code = 85777873) Hematocrit POC (test 21.0 % 37.0-47.0 L code = 26824673) Lab Interpretation (test Abnormal code = 72836-5) [facility] POC docked cwraqi9209-98-92 20:33:07 Test Item Value Reference Range Interpretation Comments Sodium POC (test code = 134 mmol/L 136-145 L 80446816) Potassium POC (test code 4.2 mmol/L 3.5-5.1 = 78730611) Chloride POC (test code 103 mmol/L 98-107 = 24385485) TCO2 POC (test code = 28 mmol/L 21-32 Physic alden Notified 01693918) Urea Nitrogen POC (test 12 mg/dL 7-18 code = 27850910) Glucose POC (test code = 76 mg/dL 74-106 21890700) Hemoglobin POC (test 7.1 g/dL 12-16 L code = 21350249) Hematocrit POC (test 21.0 % 37.0-47.0 L code = 16276002) Lab Interpretation (test Abnormal code = 14736-4) [facility] BMP POC docked oqmvyu2403-07-84 20:33:07 Test Item Value Reference Range Interpretation Comments Sodium POC (test code = 134 mmol/L 136-145 L 03224229) Potassium POC (test code 4.2 mmol/L 3.5-5.1 = 62066095) Chloride POC (test code 103 mmol/L 98-107 = 70561826) TCO2 POC (test code = 28 mmol/L 21-32 Physic alden Notified 88559950) Urea Nitrogen POC (test 12 mg/dL 7-18 code = 09306363) Glucose POC (test code = 76 mg/dL 74-106 46097432) Hemoglobin POC (test 7.1 g/dL 12-16 L code = 98327685) Hematocrit POC (test 21.0 % 37.0-47.0 L code = 33676515) Lab Interpretation (test Abnormal code = 91332-0) [facility] BMP POC docked henrls9642-68-97 20:33:07 Test Item Value Reference Range Interpretation Comments Sodium POC (test code = 134 mmol/L 136-145 L 31962414) Potassium POC (test code 4.2 mmol/L 3.5-5.1 = 39615145) Chloride POC (test code 103 mmol/L 98-107 = 88466943) TCO2 POC (test code = 28 mmol/L -32 Physic alden Notified 83609422) Urea Nitrogen POC (test 12 mg/dL 7-18 code = 88667174) Glucose POC (test code = 76 mg/dL 74-106 03752025) Hemoglobin POC (test 7.1 g/dL 12-16 L code = 62474867) Hematocrit POC (test 21.0 % 37.0-47.0 L code = 28097187) Lab Interpretation (test Abnormal code = 96141-1) [facility] CREATININE POC docked bybsur7178-91-74 20:32:51 Test Item Value Reference Range Interpretation Comments Creatinine POC (test 0.5 mg/dL 0.6-1.3 L Physici an Notified code = 34490988) eGFR If non- Am >120 See_Comment [Aut omated message] (test code = 32494887) The s ystem which generated this result transmit gregory reference range : >=90 mL/min/1.7 3 m2. The reference r sravanthi was not used to interpret this result as normal/abnormal . eGFR If Am (test >120 See_Comment [A utomated message] code = 77028181) The system which generated this result transmit gregory reference range : >=90 mL/min/1.7 3 m2. The reference r sravanthi was not used to interpret this result as normal/abnormal . Lab Interpretation (test Abnormal code = 62161-6) [facility] CREATININE POC docked xcxfue0512-87-38 20:32:51 Test Item Value Reference Range Interpretation Comments Creatinine POC (test 0.5 mg/dL 0.6-1.3 L Physici an Notified code = 76218471) eGFR If non- Am >120 See_Comment [Aut omated message] (test code = 11850927) The s ystem which generated this result transmit gregory reference range : >=90 mL/min/1.7 3 m2. The reference r sravanthi was not used to interpret this result as normal/abnormal . eGFR If Am (test >120 See_Comment [A utomated message] code = 20914677) The system which generated this result transmit gregory reference range : >=90 mL/min/1.7 3 m2. The reference r sravanthi was not used to interpret this result as normal/abnormal . Lab Interpretation (test Abnormal code = 47341-5) [facility] CREATININE POC docked bbpfzi4527-05-01 20:32:51 Test Item Value Reference Range Interpretation Comments Creatinine POC (test 0.5 mg/dL 0.6-1.3 L Physici an Notified code = 88554423) eGFR If non- Am >120 See_Comment [Aut omated message] (test code = 05336603) The s ystem which generated this result transmit gregory reference range : >=90 mL/min/1.7 3 m2. The reference r sravanthi was not used to interpret this result as normal/abnormal . eGFR If Am (test >120 See_Comment [A utomated message] code = 46738291) The system which generated this result transmit gregory reference range : >=90 mL/min/1.7 3 m2. The reference r sravanthi was not used to interpret this result as normal/abnormal . Lab Interpretation (test Abnormal code = 53006-9) [facility] CREATININE POC docked xumcxo3161-28-32 20:32:51 Test Item Value Reference Range Interpretation Comments Creatinine POC (test 0.5 mg/dL 0.6-1.3 L Physici an Notified code = 84629051) eGFR If non- Am >120 See_Comment [Aut omated message] (test code = 42842911) The s ystem which generated this result transmit gregory reference range : >=90 mL/min/1.7 3 m2. The reference r sravanthi was not used to interpret this result as normal/abnormal . eGFR If Am (test >120 See_Comment [A utomated message] code = 36311595) The system which generated this result transmit gregory reference range : >=90 mL/min/1.7 3 m2. The reference r sravanthi was not used to interpret this result as normal/abnormal . Lab Interpretation (test Abnormal code = 55872-7) [facility] CREATININE POC docked mmqzvu7401-04-08 20:32:51 Test Item Value Reference Range Interpretation Comments Creatinine POC (test 0.5 mg/dL 0.6-1.3 L Physici an Notified code = 34994148) eGFR If non- Am >120 See_Comment [Aut omated message] (test code = 41421292) The s ystem which generated this result transmit gregory reference range : >=90 mL/min/1.7 3 m2. The reference r sravanthi was not used to interpret this result as normal/abnormal . eGFR If Am (test >120 See_Comment [A utomated message] code = 88325332) The system which generated this result transmit gregory reference range : >=90 mL/min/1.7 3 m2. The reference r sravanthi was not used to interpret this result as normal/abnormal . Lab Interpretation (test Abnormal code = 49723-2) [facility]/[id number] 20:34:31 Test Item Value Reference Interpretation Comments [...] valves. Lab Interpretation Abnormal (test code = 10521-0) [facility]08[facility]68 20:34:31 Test Item Value Reference Interpretation Comments [...] valves. Lab Interpretation Abnormal (test code = 43048-4) [facility]TIM2770-58-51 20:34:31 Test Item Value Reference Interpretation Comments [...] valves. Lab Interpretation Abnormal (test code = 25916-3) [facility]/AWR4946-16-23 20:34:31 Test Item Value Reference Interpretation Comments [...] valves. Lab Interpretation Abnormal (test code = 10524-4) [facility]/DWO4336-67-17 20:34:31 Test Item Value Reference Interpretation Comments [...] valves. Lab Interpretation Abnormal (test code = 13576-0) [facility]/KWO9261-59-77 20:34:31 Test Item Value Reference Range Interpretation Comments PROTIME (BEAKER) 12.2 seconds 9.3-12.0 H Final Infor mation (test code = 759) (Auto Outp ut) INR (BEAKER) (test 1.11 See_Comment Final Inf ormation code = 370) (Auto Output) [Automated mess age] The system [employer] generated this result transmitted ref erence range: <=5.90. The reference range was not used to int erpret this result as normal/abnormal . RECOMMENDED COUMADIN/WARFARIN INR THERAPY RANGESSTANDARD DOSE: 2.0 - 3.0 Includes: PROPHYLAXIS for venous thrombosis, systemic embolization; TREATMENT for venous thrombosis and/or pulmonary embolus.HIGH RISK: Target INR is 2.5-3.5 for patients with mechanical heart valves.CT, ACBQNAE1628-86-59 20:32:00Unlisted Reason for Exam - Click Yes and Enter Reason Below->NoIs this for enterography?->NoWill this procedure require oral contrast?->No [facility] : 1985 Sex: MFINAL REPORT [...] MDReport Verified Date/Time: 07/30/2021 20:32:18 Reading Location: [address] Reading Room Basic metabolic panel (Na, K+, Cl, CO2, Glu, Ca, BUN, Cr)2021-07-30 20:00:22 Test Item Value Reference Range Interpretation Comments Sodium (test code = 135 meq/L 602-273 6510-2) Potassium (test code = 4.2 meq/L 3.6-5.5 2823-3) Chloride (test code = 103 meq/L 98-106 2075-0) CO2 (test code = 24 meq/L -29 2027-9) BUN (test code = 8 mg/dL 10-26 L 3094-0) Creatinine (test code 0.75 mg/dL 0.50-1.20 = 2160-0) Glucose (test code = 77 mg/dL 70-110 2345-7) Calcium (test code = 9.1 mg/dL 8.5-10.5 35452-3) EGFR (test code = 118 mL/min/1.73 [place] [address]-9) NOT ACCURATE CREATININE CLEARANCE IN PREDICTING GLOMERULAR FILTRATION RATE . ESTIMATED GFR I S NOT APPLICABLE FOR DIALYSIS PATIENTS. BRISA (test code = BRISA) Graphics Software Engineer ID - [id number] r ID - [id number] r ID - [id number] r ID - [id number] r ID - [id number] r ID - [id number] r ID - [id number] r ID - [id number] r ID - [id number] r ID - [id number] r ID - [id number] r ID - [id number] Lab Interpretation Abnormal (test code = 42294-2) [facility] [facility] (Na, K+, Cl, CO2, Glu, Ca, BUN, Cr)2021-07-30 20:00:22 Test Item Value Reference Range Interpretation Comments Sodium (test code = 135 meq/L 142-384 6022-2) Potassium (test code = 4.2 meq/L 3.6-5.5 2823-3) Chloride (test code = 103 meq/L 98-106 2075-0) CO2 (test code = 24 meq/L -29 8-9) BUN (test code = 8 mg/dL 10-26 L 3094-0) Creatinine (test code 0.75 mg/dL 0.50-1.20 = 2160-0) Glucose (test code = 77 mg/dL 70-110 2345-7) Calcium (test code = 9.1 mg/dL 8.5-10.5 51834-0) EGFR (test code = 118 mL/min/1.73 [place] [address]-8) NOT ACCURATE CREATININE CLEARANCE IN PREDICTING GLOMERULAR FILTRATION RATE . ESTIMATED GFR I S NOT APPLICABLE FOR DIALYSIS PATIENTS. BRISA (test code = BRISA) Graphics Software Engineer ID - [id number] r ID - [id number] r ID - [id number] r ID - [id number] r ID - [id number] r ID - [id number] r ID - [id number] r ID - [id number] r ID - [id number] r ID - [id number] r ID - [id number] r ID - [id number] Lab Interpretation Abnormal (test code = 83524-7) [facility] metabolic panel (Na, K+, Cl, CO2, Glu, Ca, BUN, Cr)2021-07-30 20:00:22 Test Item Value Reference Range Interpretation Comments Sodium (test code = 135 meq/L 052-927 2782-2) Potassium (test code = 4.2 meq/L 3.6-5.5 2823-3) Chloride (test code = 103 meq/L 98-106 2075-0) CO2 (test code = 24 meq/L 2028-03) BUN (test code = 8 mg/dL 10-26 L 3094-0) Creatinine (test code 0.75 mg/dL 0.50-1.20 = 2160-0) Glucose (test code = 77 mg/dL 70-110 2345-7) Calcium (test code = 9.1 mg/dL 8.5-10.5 71949-9) EGFR (test code = 118 mL/min/1.73 sq m [facility] [place] [address]-3) NOT ACCURATE CREATININE CLEARANCE IN PREDICTING GLOMERULAR FILTRATION RATE . ESTIMATED GFR I S NOT APPLICABLE FOR DIALYSIS PATIENTS. BRISA (test code = BRISA) Graphics Software Engineer ID - [id number] r ID - [id number] r ID - [id number] r ID - [id number] r ID - [id number] r ID - [id number] r ID - [id number] r ID - [id number] r ID - [id number] r ID - [id number] r ID - [id number] r ID - [id number] Lab Interpretation Abnormal (test code = 96155-7) [facility] metabolic panel (Na, K+, Cl, CO2, Glu, Ca, BUN, Cr)2021-07-30 20:00:22 Test Item Value Reference Range Interpretation Comments Sodium (test code = 135 meq/L 364-677 3025-2) Potassium (test code = 4.2 meq/L 3.6-5.5 2823-3) Chloride (test code = 103 meq/L 98-106 2075-0) CO2 (test code = 24 meq/L -2028-03) BUN (test code = 8 mg/dL 10-26 L 3094-0) Creatinine (test code 0.75 mg/dL 0.50-1.20 = 2160-0) Glucose (test code = 77 mg/dL 70-110 2345-7) Calcium (test code = 9.1 mg/dL 8.5-10.5 47988-8) EGFR (test code = 118 mL/min/1.73 [place] [address]-6) NOT ACCURATE CREATININE CLEARANCE IN PREDICTING GLOMERULAR FILTRATION RATE . ESTIMATED GFR I S NOT APPLICABLE FOR DIALYSIS PATIENTS. BRISA (test code = BRISA) Graphics Software Engineer ID - [id number] r ID - [id number] r ID - [id number] r ID - [id number] r ID - [id number] r ID - [id number] r ID - [id number] r ID - [id number] r ID - [id number] r ID - [id number] r ID - [id number] r ID - [id number] Lab Interpretation Abnormal (test code = 46613-7) [facility] (Na, K+, Cl, CO2, Glu, Ca, BUN, Cr)2021-07-30 20:00:22 Test Item Value Reference Range Interpretation Comments Sodium (test code = 135 meq/L 462-632 6629-2) Potassium (test code = 4.2 meq/L 3.6-5.5 2823-3) Chloride (test code = 103 meq/L 98-106 2075-0) CO2 (test code = 24 meq/L -29 2028-03) BUN (test code = 8 mg/dL 10-26 L 3094-0) Creatinine (test code 0.75 mg/dL 0.50-1.20 = 2160-0) Glucose (test code = 77 mg/dL 70-110 2345-7) Calcium (test code = 9.1 mg/dL 8.5-10.5 01006-7) EGFR (test code = 118 mL/min/1.73 [place] [address]-4) NOT ACCURATE CREATININE CLEARANCE IN PREDICTING GLOMERULAR FILTRATION RATE . ESTIMATED GFR I S NOT APPLICABLE FOR DIALYSIS PATIENTS. BRISA (test code = BRISA) Graphics Software Engineer ID - [id number] r ID - [id number] r ID - [id number] r ID - [id number] r ID - [id number] r ID - [id number] r ID - [id number] r ID - [id number] r ID - [id number] r ID - [id number] r ID - [id number] r ID - [id number] Lab Interpretation Abnormal (test code = 07297-1) [facility] [id number] 20:00:22 Test Item Value Reference Range Interpretation [...] S NOT APPLICABLE FOR DIALYSIS PATIEN TS. Graphics Software Engineer ID - [id number] ID - [id number] ID - [id number] ID - [id number] ID - [id number] ID - [id number] ID - [id number] ID - [id number] ID - [id number] ID - [id number] ID - [id number] ID - [id number] with platelet count + automated [id number] 19:43:00 Test Item Value Reference Range Interpretation Comments WBC (test code = 6690-2) 6.2 See_Comment [A utomated message] The system [employer] generated this result transmitted ref erence range: 4.0 - 10 .0 K/L. The refe rence range was not u sed to interpret this result as normal/abnor mal. RBC (test code = 789-8) 3.93 See_Comment L [Au tomated message] The system [employer] generated this result transmitted ref erence range: 4.20 - 5 .80 M/L. The refe rence range was not u sed to interpret this result as normal/abnor mal. MCHC (test code = 786-4) 34.2 See_Comment L [A utomated message] The system [employer] generated this result transmitted ref erence range: [...] See_Comment [Aut omated message] 777-3) The system [employer] generated this result transmitted ref erence range: 150 - 43 0 K/CU MM. The referen ce range was not u sed to interpret this result as normal/abnor mal. MPV (test code = 8.7 fL 6.0-11.5 65568-9) nRBC (test code = 413) 0 See_Comment [Aut omated message] The system [employer] generated this result transmitted ref erence range: [...] See_Comment [Aut omated message] 670) The system [employer] generated this result transmitted ref erence range: 1.80 - 8 .00 K/L. The refe rence range was not u sed to interpret this result as normal/abnor mal. # Lymphs (test code = 2.15 See_Comment [Auto mated message] 414) The system [employer] generated this result transmitted ref erence range: 1.48 - 4 .50 K/L. The refe rence range was not u sed to interpret this result as normal/abnor mal. # Monos (test code = 0.49 See_Comment [Autom ated message] 415) The system [employer] generated this result transmitted ref erence range: 0.00 - 1 .30 K/L. The refe rence range was not u sed to interpret this result as normal/abnor mal. # Eos (test code = 416) 0.51 See_Comment H [Au tomated message] The system [employer] generated this result transmitted ref erence range: 0.00 - 0 .50 K/L. The refe rence range was not u sed to interpret this result as normal/abnor mal. # Baso (test code = 417) 0.05 See_Comment [A utomated message] The system [employer] generated this result transmitted ref erence range: 0.00 - 0 .20 K/L. The refe rence range was not u sed to interpret this result as normal/abnor mal. Immature 0 % 0-0 Granulocytes-Relative (test code = 2801) Lab Interpretation (test Abnormal code = 89723-2) [facility] with platelet count + automated [id number] 19:43:00 Test Item Value Reference Range Interpretation Comments WBC (test code = 6690-2) 6.2 See_Comment [A utomated message] The system [employer] generated this result transmitted ref erence range: 4.0 - 10 .0 K/L. The refe rence range was not u sed to interpret this result as normal/abnor mal. RBC (test code = 789-8) 3.93 See_Comment L [Au tomated message] The system [employer] generated this result transmitted ref erence range: 4.20 - 5 .80 M/L. The refe rence range was not u sed to interpret this result as normal/abnor mal. MCHC (test code = 786-4) 34.2 See_Comment L [A utomated message] The system [employer] generated this result transmitted ref erence range: [...] See_Comment [Aut omated message] 777-3) The system [employer] generated this result transmitted ref erence range: 150 - 43 0 K/CU MM. The referen ce range was not u sed to interpret this result as normal/abnor mal. MPV (test code = 8.7 fL 6.0-11.5 99909-8) nRBC (test code = 413) 0 See_Comment [Aut omated message] The system [employer] generated this result transmitted ref erence range: [...] See_Comment [Aut omated message] 670) The system [employer] generated this result transmitted ref erence range: 1.80 - 8 .00 K/L. The refe rence range was not u sed to interpret this result as normal/abnor mal. # Lymphs (test code = 2.15 See_Comment [Auto mated message] 414) The system [employer] generated this result transmitted ref erence range: 1.48 - 4 .50 K/L. The refe rence range was not u sed to interpret this result as normal/abnor mal. # Monos (test code = 0.49 See_Comment [Autom ated message] 415) The system [employer] generated this result transmitted ref erence range: 0.00 - 1 .30 K/L. The refe rence range was not u sed to interpret this result as normal/abnor mal. # Eos (test code = 416) 0.51 See_Comment H [Au tomated message] The system [employer] generated this result transmitted ref erence range: 0.00 - 0 .50 K/L. The refe rence range was not u sed to interpret this result as normal/abnor mal. # Baso (test code = 417) 0.05 See_Comment [A utomated message] The system [employer] generated this result transmitted ref erence range: 0.00 - 0 .20 K/L. The refe rence range was not u sed to interpret this result as normal/abnor mal. Immature 0 % 0-0 Granulocytes-Relative (test code = 2801) Lab Interpretation (test Abnormal code = 40592-7) [facility] with platelet count + automated [id number] 19:43:00 Test Item Value Reference Range Interpretation Comments WBC (test code = 6690-2) 6.2 See_Comment [A utomated message] The system [employer] generated this result transmitted ref erence range: 4.0 - 10 .0 K/L. The refe rence range was not u sed to interpret this result as normal/abnor mal. RBC (test code = 789-8) 3.93 See_Comment L [Au tomated message] The system [employer] generated this result transmitted ref erence range: 4.20 - 5 .80 M/L. The refe rence range was not u sed to interpret this result as normal/abnor mal. MCHC (test code = 786-4) 34.2 See_Comment L [A utomated message] The system [employer] generated this result transmitted ref erence range: [...] See_Comment [Aut omated message] 777-3) The system [employer] generated this result transmitted ref erence range: 150 - 43 0 K/CU MM. The referen ce range was not u sed to interpret this result as normal/abnor mal. MPV (test code = 8.7 fL 6.0-11.5 52377-7) nRBC (test code = 413) 0 See_Comment [Aut omated message] The system [employer] generated this result transmitted ref erence range: [...] See_Comment [Aut omated message] 670) The system [employer] generated this result transmitted ref erence range: 1.80 - 8 .00 K/L. The refe rence range was not u sed to interpret this result as normal/abnor mal. # Lymphs (test code = 2.15 See_Comment [Auto mated message] 414) The system [employer] generated this result transmitted ref erence range: 1.48 - 4 .50 K/L. The refe rence range was not u sed to interpret this result as normal/abnor mal. # Monos (test code = 0.49 See_Comment [Autom ated message] 415) The system [employer] generated this result transmitted ref erence range: 0.00 - 1 .30 K/L. The refe rence range was not u sed to interpret this result as normal/abnor mal. # Eos (test code = 416) 0.51 See_Comment H [Au tomated message] The system [employer] generated this result transmitted ref erence range: 0.00 - 0 .50 K/L. The refe rence range was not u sed to interpret this result as normal/abnor mal. # Baso (test code = 417) 0.05 See_Comment [A utomated message] The system [employer] generated this result transmitted ref erence range: 0.00 - 0 .20 K/L. The refe rence range was not u sed to interpret this result as normal/abnor mal. Immature 0 % 0-0 Granulocytes-Relative (test code = 2801) Lab Interpretation (test Abnormal code = 62796-8) [facility] with platelet count + automated [id number] 19:43:00 Test Item Value Reference Range Interpretation Comments WBC (test code = 6690-2) 6.2 See_Comment [A utomated message] The system [employer] generated this result transmitted ref erence range: 4.0 - 10 .0 K/L. The refe rence range was not u sed to interpret this result as normal/abnor mal. RBC (test code = 789-8) 3.93 See_Comment L [Au tomated message] The system [employer] generated this result transmitted ref erence range: 4.20 - 5 .80 M/L. The refe rence range was not u sed to interpret this result as normal/abnor mal. MCHC (test code = 786-4) 34.2 See_Comment L [A utomated message] The system [employer] generated this result transmitted ref erence range: [...] See_Comment [Aut omated message] 777-3) The system [employer] generated this result transmitted ref erence range: 150 - 43 0 K/CU MM. The referen ce range was not u sed to interpret this result as normal/abnor mal. MPV (test code = 8.7 fL 6.0-11.5 33273-7) nRBC (test code = 413) 0 See_Comment [Aut omated message] The system [employer] generated this result transmitted ref erence range: [...] See_Comment [Aut omated message] 670) The system [employer] generated this result transmitted ref erence range: 1.80 - 8 .00 K/L. The refe rence range was not u sed to interpret this result as normal/abnor mal. # Lymphs (test code = 2.15 See_Comment [Auto mated message] 414) The system [employer] generated this result transmitted ref erence range: 1.48 - 4 .50 K/L. The refe rence range was not u sed to interpret this result as normal/abnor mal. # Monos (test code = 0.49 See_Comment [Autom ated message] 415) The system [employer] generated this result transmitted ref erence range: 0.00 - 1 .30 K/L. The refe rence range was not u sed to interpret this result as normal/abnor mal. # Eos (test code = 416) 0.51 See_Comment H [Au tomated message] The system [employer] generated this result transmitted ref erence range: 0.00 - 0 .50 K/L. The refe rence range was not u sed to interpret this result as normal/abnor mal. # Baso (test code = 417) 0.05 See_Comment [A utomated message] The system [employer] generated this result transmitted ref erence range: 0.00 - 0 .20 K/L. The refe rence range was not u sed to interpret this result as normal/abnor mal. Immature 0 % 0-0 Granulocytes-Relative (test code = 2801) Lab Interpretation (test Abnormal code = 20474-3) [facility] with platelet count + automated [id number] 19:43:00 Test Item Value Reference Range Interpretation Comments WBC (test code = 6690-2) 6.2 See_Comment [A utomated message] The system [employer] generated this result transmitted ref erence range: 4.0 - 10 .0 K/L. The refe rence range was not u sed to interpret this result as normal/abnor mal. RBC (test code = 789-8) 3.93 See_Comment L [Au tomated message] The system [employer] generated this result transmitted ref erence range: 4.20 - 5 .80 M/L. The refe rence range was not u sed to interpret this result as normal/abnor mal. MCHC (test code = 786-4) 34.2 See_Comment L [A utomated message] The system [employer] generated this result transmitted ref erence range: [...] See_Comment [Aut omated message] 777-3) The system [employer] generated this result transmitted ref erence range: 150 - 43 0 K/CU MM. The referen ce range was not u sed to interpret this result as normal/abnor mal. MPV (test code = 8.7 fL 6.0-11.5 38488-9) nRBC (test code = 413) 0 See_Comment [Aut omated message] The system [employer] generated this result transmitted ref erence range: [...] See_Comment [Aut omated message] 670) The system [employer] generated this result transmitted ref erence range: 1.80 - 8 .00 K/L. The refe rence range was not u sed to interpret this result as normal/abnor mal. # Lymphs (test code = 2.15 See_Comment [Auto mated message] 414) The system [employer] generated this result transmitted ref erence range: 1.48 - 4 .50 K/L. The refe rence range was not u sed to interpret this result as normal/abnor mal. # Monos (test code = 0.49 See_Comment [Autom ated message] 415) The system [employer] generated this result transmitted ref erence range: 0.00 - 1 .30 K/L. The refe rence range was not u sed to interpret this result as normal/abnor mal. # Eos (test code = 416) 0.51 See_Comment H [Au tomated message] The system [employer] generated this result transmitted ref erence range: 0.00 - 0 .50 K/L. The refe rence range was not u sed to interpret this result as normal/abnor mal. # Baso (test code = 417) 0.05 See_Comment [A utomated message] The system [employer] generated this result transmitted ref erence range: 0.00 - 0 .20 K/L. The refe rence range was not u sed to interpret this result as normal/abnor mal. Immature 0 % 0-0 Granulocytes-Relative (test code = 2801) Lab Interpretation (test Abnormal code = 95788-7) [facility] W/PLT COUNT & AUTO [id number] 19:43:00 Test Item Value Reference Range Interpretation [...] PERCENT (BEAKER) (test code = 2801) SURGICAL [id number] 07:40:00 RUN DATE: 09/19/18 [facility] *LIVE* PAGE 1 RUN TIME: 740 Specimen Inquiry RUN USER: INTERFACE --------- ---PATIENT: VERÓNICA [facility]UNN [facility]: [id number] AGE/SX: 32/M ROOM: [facility] RE09/15/18REG DR: Keith Swann MD : 83 BED: 1 DIS: 09/16/18 STATUS: DIS IN TLOC: SPEC #: [id number] RECD: 09/15/18 STATUS: DRAGAN REQ #: [id number] DONA: 09/15/[address]: Keith Swann MD ENTERED: 09/18/18 SP TYPE: SURG SPEC OTHR DR: No Primary or Family Physician Self Referred Gale Dowling MDORDERED: GM LEVEL 4 CODES: F66120 - ESOPHAGUS, NOS COPIES TO: No Primary or Family Physician Self Referred Keith Swann MD [address] [place] [address] Gale Dowling MD [address] [address] PROCEDURES: GM LEVEL 4 (Incomplete) TISSUES: 1. [...] CONTINUED ON NEXT PAGE RUN DATE: 09/19/18 [facility] *LIVE* PAGE 2 RUN TIME: 740 Specimen Inquiry RUN USER: INTERFACE SPEC #: [id number] PATIENT: VERÓNICA NUNN #[id number] (Continued) POST-OP DIAGNOSIS Esophagitis, supertial tear in the esophagus, R/O Flor, esosinophilic es PRE-OP DIAGNOSIS Hematemesis Signed SIGNATURE ON FILE Joce Barbosa DO 09/19/18 0740 END OF REPORT BASIC METABOLIC [id number] 08:40:00 Test Item Value Reference Range Interpretation [...] 9.1 mg/dL 8.0-10.5 N CA) CBC W/AUTO [id number] 08:20:00 Test Item Value Reference Range Interpretation [...] (test code NO = MDIFF) CBC W/AUTO [id number] 22:25:00 Test Item Value Reference Range Interpretation [...] (test code NO = MDIFF) CBC W/AUTO [id number] 12:50:00 Test Item Value Reference Range Interpretation [...] (test code NO = MDIFF) CBC W/AUTO [id number] 07:24:00 Test Item Value Reference Range Interpretation [...] REQUIRED (test NO code = MDIFF) PROTHROMBIN [id number] 00:10:00 Test Item Value Reference Range Interpretation [...] Mec hanical prosthetic valv es (high risk), 2 .5 - 3.5 Presence of Lupus Anticoagulant o r Antiphospholipi d Antibodies, Pre vention of systemic emb olism - Acute Myocardia l Infarction (to prevent recurrent infar ct). CBC W/AUTO [id number] 00:03:00 Test Item Value Reference Range Interpretation [...] REQUIRED (test NO code = MDIFF) PROTHROMBIN [id number] 18:57:00 Test Item Value Reference Range Interpretation Comments PT PATIENT (test code = PTP) 13.1 SECONDS 9.3-12.9 H INTERNATIONAL NORMAL RATIO 1.14 INR Unit 0.8-1.2 N (test code = INR) URINALYSIS [id number] 18:56:00 Test Item Value Reference Range Interpretation [...] code = LEUU) - CT ABD PELVIS W/[id number] 16:49:00 Name: VERÓNICA NUNN [facility] : 1985 Age/S: 32 / M [address] Unit #: [id number] Loc: [place] [address] Phys: Ivette Choudhary MD Acct: [id number] Dis Date: Status: REG ER PHONE #: [phone] Exam Date: 09/14/2018 1638 FAX #: Reason: abd pain unable to give further info 08/05 mrEXAMS: CPT: [id number] CT ABD PELVIS W/CONT 87171 EXAMINATION: - CT ABD PELVIS W/CONT. LOCATION: [...] (CONTINUED) Name: VERÓNICA NUNN : 1985 Age/S: 32 / M [address] Unit #: [id number] Loc:[place] [address] Phys: Ivette Choudhary MD Acct: [id number] Dis Date: Status: REG ER PHONE #: Exam Date: 09/14/2018 1635 FAX #: Reason: abd pain unable to give further info 08/05 mr EXAMS:CPT: [id number] CT ABD PELVIS W/CONT 37989 (Continued) CC: Ivette Choudhary MD Technologist:Mariely Brar, RT(R)(CT) CTDI: DLP: Trnscb Date/Time: 09/14/2018 (1648) [email or web address] Orig Print D/T: S: 09/14/2018 (165) CTDI: DLP: PAGE 2 Signed ReportBASIC METABOLIC [id number] 16:06:00 Test Item Value Reference Range Interpretation [...] CA) 9.7 MG/DL 8.5-10.1 N HEPATIC FUNCTION [id number] 16:06:00 Test Item Value Reference Range Interpretation [...] 89 Unit/L 50-136 N code = ALKP) [id number] 16:06:00 Test Item Value Reference Range Interpretation Comments LIPASE (test code = LIP) 173 Unit/L 114-286 N BASIC METABOLIC [id number] 15:56:00 Test Item Value Reference Range Interpretation [...] CA) 9.7 MG/DL 8.5-10.1 N HEPATIC FUNCTION [id number] 15:56:00 Test Item Value Reference Range Interpretation [...] TOTAL (test code Unit/L 50-136 = ALKP) [id number] 15:56:00 Test Item Value Reference Range Interpretation Comments LIPASE (test code = LIP) 173 Unit/L 114-286 N CBC W/AUTO [id number] 15:47:00 Test Item Value Reference Range Interpretation [...]
[2022-03-20] MEDS ORDERED: WATER FOR INJ,STERILE 20 ML ONE (19:58)
--- NOTE | 2022-03-20 20:58 | EDPHYS ---
Physician Documentation [facility] Name: Alexy Mock Age: 36 yrs Sex: Male : 1985 Arrival Date: 03/20/2022 Time: 19:14 Bed 3 Private MD: ED Physician Vidal Gomez HPI: 03/20 19:59 This 36 yrs old Male presents to ER via EMS with complaints of peg pulled out. anthony 19:59 The patient presents with abdominal pain in the upper abdomen. Onset: The anthony symptoms/episode began/occurred just prior to arrival. The symptoms do not radiate. Associated signs and symptoms: none. The symptoms are described as achy. Modifying factors: The symptoms are alleviated by nothing, the symptoms are aggravated by nothing. Severity of pain: At its worst the pain was mild in the emergency department the pain is unchanged. The patient has not experienced similar symptoms in the past. Historical: - Allergies: 19:23 No Known Allergies; kl - Home Meds: 19:23 Amitriptyline Oral [Active]; Haloperidol Oral [Active]; [place] Carbonate Oral kl [Active]; olanzapine Oral [Active]; Propranolol Oral [Active]; - PMHx: 19:23 abnormal liver function; adhd; Anemia; Bipolar disorder; DYSPHAGIA; ENCEPHALOPATHY; kl epilepsy; MR; pressure ulcer sacral region; - PSHx: 19:23 G tube; kl - Immunization history:: Adult Immunizations up to date. - Social history:: Smoking status: Patient denies any tobacco usage or history of. - Family history:: not pertinent. ROS: 19:59 Constitutional: Negative for fever, chills, and weight loss, Eyes: Negative for injury, anthony pain, redness, and discharge, ENT: Negative for injury, pain, and discharge, Neck: Negative for injury, pain, and swelling, Cardiovascular: Negative for chest pain, palpitations, and edema, Respiratory: Negative for shortness of breath, cough, wheezing, and pleuritic chest pain, Back: Negative for injury and pain, : Negative for injury, bleeding, discharge, and swelling, MS/Extremity: Negative for injury and deformity, Skin: Negative for injury, rash, and discoloration, Neuro: Negative for headache, weakness, numbness, tingling, and seizure, Psych: Negative for depression, anxiety, suicide ideation, homicidal ideation, and hallucinations, Allergy/Immunology: Negative for hives, rash, and allergies, Endocrine: Negative for neck swelling, polydipsia, polyuria, polyphagia, and marked weight changes. 19:59 Abdomen/GI: Positive for abdominal pain, of the left upper quadrant. Exam: 19:59 Constitutional: This is a well developed, well nourished patient who is awake, alert, anthony and in no acute distress. Head/Face: Normocephalic, atraumatic. Eyes: Pupils equal round and reactive to light, extra-ocular motions intact. Lids and lashes normal. Conjunctiva and sclera are non-icteric and not injected. Cornea within normal limits. Periorbital areas with no swelling, redness, or edema. ENT: Nares patent. No nasal discharge, no septal abnormalities noted. Tympanic membranes are normal and external auditory canals are clear. Oropharynx with no redness, swelling, or masses, exudates, or evidence of obstruction, uvula midline. Mucous membranes moist. Neck: Trachea midline, no thyromegaly or masses palpated, and no cervical lymphadenopathy. Supple, full range of motion without nuchal rigidity, or vertebral point tenderness. No Meningismus. Chest/axilla: Normal chest wall appearance and motion. Nontender with no deformity. No lesions are appreciated. Cardiovascular: Regular rate and rhythm with a normal S1 and S2. No gallops, murmurs, or rubs. Normal PMI, no JVD. No pulse deficits. Respiratory: Lungs have equal breath sounds bilaterally, clear to auscultation and percussion. No rales, rhonchi or wheezes noted. No increased work of breathing, no retractions or nasal flaring. Back: No spinal tenderness. No costovertebral tenderness. Full range of motion. Male : Normal genitalia with no discharge or lesions. MS/ Extremity: Pulses equal, no cyanosis. Neurovascular intact. Full, normal range of motion. Neuro: Awake and alert, GCS 15, oriented to person, place, time, and situation. Cranial nerves II-XII grossly intact. Motor strength 5/5 in all extremities. Sensory grossly intact. Cerebellar exam normal. Normal gait. Psych: Awake, alert, with orientation to person, place and time. Behavior, mood, and affect are within normal limits. 19:59 Abdomen/GI: Inspection: scaphoid. Vital Signs: 19:22 BP 144 / 94; Pulse 91; Resp 18; Temp 98.4(TE); Pulse Ox 99% on R/A; kl MDM: 19:16 Patient medically screened. [facility] 20:01 Differential diagnosis: gastritis. Data reviewed: vital signs, nurses notes, radiologic anthony studies, plain films. Data interpreted: instructional services specialist: rate is 91 beats/min, rhythm is regular, Pulse oximetry: on room air is 99 %. Test interpretation: by ED physician or midlevel provider: plain radiologic studies. Counseling: I had a detailed discussion with the patient and/or guardian regarding: the historical points, exam findings, and any diagnostic results supporting the discharge/admit diagnosis, radiology results, the need for outpatient follow up. 20:39 Patient medically screened. [facility] 03/20 19:59 Order name: Abdomen 1 View (KUB) XRAY: gastrograffen 30 cc [facility] 03/20 19:59 Order name: [facility]. Order: 20 mayes, and 20 fr g tube anthony Administered Medications: No medications were administered Disposition Summary: 03/20/22 20:57 Discharge Ordered Location: Home anthony Problem: new anthony Symptoms: have improved anthony Condition: Stable anthony Diagnosis - Encounter for attention to gastrostomy anthony - Gastrostomy complication, unspecified - replaced anthony Followup: anthony - With: Private Physician - When: 2 - 3 days - Reason: Recheck today's complaints, Continuance of care, Re-evaluation by your physician Discharge Instructions: - Discharge Summary Sheet anthony - Gastrostomy Tube Replacement anthony - Gastrostomy Tube Home Guide, Adult anthony - PEG Tube Home Guide, [id number] anthony - PEG Tube Home Guide anthony Forms: - Medication Reconciliation Form anthony - Thank You Letter anthony - Antibiotic Education anthony - Prescription Opioid Use anthony - SBAR form mw2 Signatures: Dispatcher [employer] Dannielle Vieira RN RN kl Anderson, Corey, MD MD cha
--- NOTE | 2022-03-20 20:58 | ER ---
Nurse's Notes [facility] Name: Alexy Mock Age: 36 yrs Sex: Male : 1985 Arrival Date: 03/20/2022 Time: 19:14 Bed 3 Private MD: Diagnosis: Encounter for attention to gastrostomy;Gastrostomy complication, unspecified-replaced Presentation: 03/20 19:22 Chief complaint: EMS states: pt pulled put g tube fell out of bed this am. Coronavirus kl screen: Vaccine status:. Ebola Screen: Patient negative for fever greater than or equal to 101.5 degrees Fahrenheit, and additional compatible Ebola Virus Disease symptoms. Initial Sepsis Screen: Does the patient meet any 2 criteria? No. Patient's initial sepsis screen is negative. Does the patient have a suspected source of infection? No. Patient's initial sepsis screen is negative. Risk Assessment: Do you want to hurt yourself or someone else? Patient reports no desire to harm self or others. 19:22 Method Of Arrival: EMS: [facility] 19:22 Acuity: ELROY 3 kl Triage Assessment: 19:24 General: Appears distressed, cachectic, Behavior is agitated, combative, restless, at patients baseline. Pain: Unable to use pain scale. Does not appear to understand pain scale. Historical: - Allergies: 19:23 No Known Allergies; kl - Home Meds: 19:23 Amitriptyline Oral [Active]; Haloperidol Oral [Active]; [place] Carbonate Oral kl [Active]; olanzapine Oral [Active]; Propranolol Oral [Active]; - PMHx: 19:23 abnormal liver function; adhd; Anemia; Bipolar disorder; DYSPHAGIA; ENCEPHALOPATHY; kl epilepsy; MR; pressure ulcer sacral region; - PSHx: 19:23 G tube; kl - Immunization history:: Adult Immunizations up to date. - Social history:: Smoking status: Patient denies any tobacco usage or history of. - Family history:: not pertinent. Assessment: 19:25 General: Behavior is restless, uncooperative. Cardiovascular: No deficits noted. Heart kl tones S1 S2. Respiratory: No deficits noted. Airway is patent Trachea midline Respiratory effort is even, unlabored, Respiratory pattern is regular. GI: pt pulled out g tube no active bleeding noted. : pt incontinant. Derm: redness to right forehead. Vital Signs: 19:22 BP 144 / 94; Pulse 91; Resp 18; Temp 98.4(TE); Pulse Ox 99% on R/A; ED Course: 19:14 Patient arrived in ED. ll3 19:16 Vidal Gomez MD is Attending Physician. [facility] 19:23 Triage completed. 20:01 g tube insertion. Wound care: to decubitus located on coccyx was cleaned with with NS, kl Stage IV half dollar size wet to dry done secured with medipore g tube dresses with 4 x 4 and medipore. 21:16 Abdomen 1 View (KUB) XRAY: gastrograffen 30 cc In Process Unspecified. EDMS 21:26 Contacted [facility] to inform them that the patient has been medically 2 cleared and up for discharge. The Karen quezada Charge Nurse stated "we do not arrange transport after 6 and there is no one coming to pick him up." I contacted [facility] to take the patient back to his residence. Administered Medications: No medications were administered Outcome: 20:57 Discharge ordered by . [facility] 21:50 Patient left the ED. mw2 Signatures: Dispatcher [employer] EDMS Dannielle Bowens, RN RN Vidal Mancilla MD MD cha [place], MyKena mw2 Geronimo Douglas RN RN ll3 Corrections: (The following items were deleted from the chart) 21:30 21:26 Contacted [facility] to inform them that the patient has been mw2 medically cleared and up for discharge. The Karen quezada Nurse stated "we do not arrange transport after 6 and there is no one coming to pick him up." I contacted [facility] to take the patient back to his residence mw2
--- NOTE | 2022-03-20 21:21 | RAD REPORT ---
EXAM DESCRIPTION: RAD - Abdomen 1 View (KUB) - 03/20/2022 9:14 pm CLINICAL HISTORY: Abdomen pain/peg tube placement FINDINGS: Contrast was administered into a percutaneous gastrostomy tube. The contrast Enters the lumen of the stomach. No extravasation contrast noted. Fluoroscopy time 0. No fluoroscopic spot images
[2022-03-22 07:18] VITALS: BP 144/94; TEMP 98.4; O2SAT 99
== END 2022-03-20 21:50 | disposition home or self-care (01) ==
LOC: ER 19:09
PROC: 0DH67UZ Insertion of Feeding Device into Stomach, Via Natural or Artificial Opening (ICD-10-PCS; principal; 2022-03-20)
DX: K94.29 Other complications of gastrostomy (principal)
CPT/HCPCS: 74018; 99284

== ENCOUNTER 2022-03-22 05:06 | Emergency (ER) | payer OTHER ==
--- OUTSIDE RECORDS SUMMARY | 2022-03-22 05:15 | XMS REPORT | Continuity of Care Document ---
:1985 Author Organization [facility] t Address [address] [place] [address] Care Team Providers Name Role Phone Asked, No Pcp Primary Care Physician Unavailable WANDA SHUKLA Attending Clinician Unavailable KAMILLE BETTENCOURT Attending Clinician Unavailable SVEN_STACI_Neftaly Attending Clinician Unavailable Mariela Linares Attending Clinician [phone] Damir Nieves Attending Clinician [phone] Isidoro Kumar Attending Clinician ISIDORO KUMAR Attending Clinician Unavailable ANNIE MOON Attending Clinician Unavailable ARVIND LOWE Attending Clinician Unavailable Arvind Lowe Attending Clinician Chris Vgea Attending Clinician Ai BECKER, Modesto Cruz Attending Clinician [phone] MODESTO CLOUD Attending Clinician Unavailable Zain David Attending Clinician Unavailable Molina Hernández MD Attending Clinician Sarai BECKER, Annie Henley Attending Clinician Lion Parry MD, Kym Attending Clinician [phone] Richardson BECKER, Marla Polanco Attending Clinician Elida Peter MD Attending Clinician Seun Lucero, Malissa Martin Attending Clinician + [phone] ELIDA PETER Attending Clinician Unavailable KYM GUTIERREZ Attending Clinician Unavailable Wanda Shukla Attending Clinician Barrera Anderson MD Attending Clinician [phone] BARRERA ANDERSON Attending Clinician Unavailable Brii Campbell MD Attending Clinician BRII CAMPBELL Attending Clinician Unavailable Jazmin Ham Attending Clinician Handy Hammonds Attending Clinician Rony Penny Attending Clinician Annette Butler Attending Clinician Kingsley Barney Attending Clinician Vijay Combs Attending Clinician Alexis Shields Attending Clinician _[facility]nu Admitting Clinician Unavailable Isidoro Kumar Admitting Clinician ISIDORO KUMAR Admitting Clinician Unavailable ARVIND LOWE Admitting Clinician Unavailable Arvind Lowe Admitting Clinician Chris Vega Admitting Clinician Physician, No Primary or Family Admitting Clinician UnavailMALISSA Montaño Admitting Clinician Unavailable Nasra Deeshanna Kianna Admitting Clinician Annette Butler Admitting Clinician Vijay Combs Admitting Clinician Payers Payer Name Policy Type Policy Number Effective Date Expiration Date S [place] MEDICAID [id number] 2018 00:00:00 MEDICARE PART A & [id number] 2010 B 00:00:00 [place]: [id number] 2010 [id number] [employer] 00:00:00 [place] [id number] [place] [id number] MAO SSI [id number] 2018 RELATED 00:00:00 Problems Condition Condition Condition Status Onset Resolution Last Treating Co mments Source Name Details Category Date Date Treatment Clinician Date Constipati Constipati Disease Active [facility] on on 12-14 Health 00:00: 00 Urinary Urinary Disease Active [facility] retention retention 12-14 Heal th 00:00: 00 [...] Intellectu Disease Active H arris al al 820 Health disability disability 00:00: 00 Bipolar Bipolar Disease Active [place] disorder, disorder, 02-20 Heal th unspecifie unspecifie 00:00: d d 00 Psychotic 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 02-20 Health 00:00: 00 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 He alth Suicidal Suicidal Disease Active [facility] ideation ideation Health Aggressive Aggressive Disease Active [facility] behavior, behavior, Heal th adult adult Other Other Disease Active [place] insomnia insomnia Health Bipolar 1 Bipolar 1 Disease Active [facility] ris disorder disorder Health Elevated Elevated Disease Active [facility] lithium lithium Health level level Anemia Anemia Disease Active [facility] Weight Weight Disease Active [place] loss loss Health Agitation Agitation Disease Active [facility] Allergies, Adverse Reactions, Alerts Allergy Allergy Status Severity Reaction(s) Onset Inactive Treating Comm ents Source Name Type Date Date Clinician No Known DA Active U [facility] 01[facility]08 [facility] 00:[facility]: d 00 [facility] No Known DA Active U 2016-07 [facility] Allergie 25 [facility] 00:00: d 00 [facility] No Known DA Active U 2016-07 [facility] Allergie 25 [facility] s 00:00: Andre 00 [facility] NO KNOWN Allergy Active [facility] Social History Social Habit Start Date Stop Date Quantity Comments Source History [facility] Food [facility] Worry History SDMI Food 2021-12-23 2021-12-23 1 [place] Scarcity 00:00:00 00:00:00 Tobacco use and 2021-12-23 2021-12-23 Smokeless tobacco [facility] exposure 00:00:00 00:00:00 non-user Alcohol intake 2021-12-23 2021-12-23 Lifetime [facility] lt 00:00:00 00:00:00 non-drinker (finding) Sex Ass[birth year] At [birth year] [place] [facility]th 00:00:00 00:00:00 Smoking Status Start Date Stop Date Source Tobacco smoking consumption unknown [facility] Never smoker [facility] Medications Ordered Filled Start Stop Current [...] :00 for 1 Center dose. furosemide 2-0 2- No 20mg QD Take 1 [facility] [...] :00 for 1 Center dose. furosemide 2-0 2- No 20mg QD Take 1 [facility] [...] tablet 00 (two) Center times daily. levETIRAcet 2-0 Yes 500mg Q.5D Take [address] am (KEPPRA) 6-23 [facility] MG 00:00: mouth 2 Medical tablet 00 (two) Center times daily. levETIRAcet 2021-0 Yes 500mg Q.5D Take [address] am (KEPPRA) 6-23 mg by [facility] 500 MG 00:00: mouth 2 Medical tablet 00 (two) Center times daily. levETIRAcet 2-0 Yes 500mg Q.5D Take [address] am (KEPPRA) 6-23 mg by [facility] 500 MG 00:00: mouth 2 Medical tablet 00 (two) Center times daily. levETIRAcet 2021-0 Yes 500mg Q.5D Take [address] am (KEPPRA) 6-23 mg by [facility] 500 MG 00:00: mouth 2 Medical tablet 00 (two) Center times daily. levETIRAcet 2-0 Yes 500mg Q.5D Take [address] am (KEPPRA) 6-23 mg by [facility] 500 MG 00:00: mouth 2 Medical tablet 00 (two) Center times daily. tamsulosin 2021-2021- No .4mg Take 0.[address] (FLOMAX) 6-15 09-13 mg by [facility] 0.4 mg Cap 00:00: 23:59 mouth. Medi jonatan 24 hr 00 :00 Center capsule tamsulosin 2021-0 2021- No Intellectua .4mg QD [...] [place] (FLOMAX) 6-15 09-13 l capsule by [facility] 0.4 mg 00:00: 23:59 disability mouth capsule [...] [place] (FLOMAX) 6-15 09-13 l capsule by [facility] 0.4 mg 00:00: 23:59 disability mouth capsule 00 :00 daily for 90 days. Start 12/16/21. haloperidoL 0 2021- No Intellectua 10mg QD Take 1 [place] (HALDOL) 10 6-15 09-13 l tablet by alth mg tablet 00:00: 23:59 disability mouth 00 :00 daily for 90 days. Start 12/16/21. tamsulosin 0 2021- No Intellectua .4mg QD Take 1 [place] (FLOMAX) 6-15 09-13 l capsule by [facility] 0.4 mg 00:00: 23:59 disability mouth capsule [...] [place] (FLOMAX) 6-15 09-13 l capsule by [facility] 0.4 mg 00:00: 23:59 disability mouth capsule 00 :00 daily for 90 days. Start 12/16/21. haloperidoL 2021-0 2021- No Intellectua 10mg QD Take 1 [place] (HALDOL) 10 6-15 09-13 l tablet by He alth mg tablet 00:00: 23:59 disability mouth 00 :00 daily for 90 days. Start 12/16/21. tamsulosin 2021-0 2022- No Intellectua .4mg QD Take 1 [place] (FLOMAX) 6-15 09-13 l capsule by [facility] 0.4 mg 00:00: 23:59 disability mouth capsule 00 :00 daily for 90 days. Start 12/16/21. haloperidoL 2021-0 2- No [facility]lectua 10mg QD Take 1 [place] [...] 00 :00 Center capsule clonazePAM 2021-0 Yes .25mg Take 0.25 C [...] 0.5 MG 00:00: mouth. Medical tablet 00 [place] clonazePAM 2022-0 Yes .25mg Take 0.[address] (KlonoPIN) 6-14 [facility] 0.5 MG 00:00: mouth. Medical tablet 00 [place] clonazePAM 2022-0 Yes .25mg Take 0.[address] (KlonoPIN) 6-14 mg by [facility] 0.5 MG 00:00: mouth. Medical tablet 00 [place] clonazePAM 2022-0 Yes .25mg Take 0.[address] (KlonoPIN) 6-14 mg by [facility] 0.5 MG 00:00: mouth. Medical tablet 00 [place] clonazePAM 2022-0 Yes .25mg Take 0.[address] (KlonoPIN) 6-14 mg by [facility] 0.5 MG 00:00: mouth. Medical tablet 00 [place] cloNIDine 2022-0 2022- No .1mg Take 0.[address] [facility] HCL 6-14 09-12 mg by [place] (CATAPRES) 00:00: 23:59 mouth. Medi jonatan 0.1 MG 00 :00 Center tablet senna-docus 2021- No 2{tbl} Take [address] ate 6-14 09-[address] [facility] (SENOKOT S) 00:00: 23:59 mouth. Med ical 8.6-50 mg 00 :00 Center per tablet sennosides- 2021- No Intellectua 2{tbl} Q.5D Take 2 [place] docusate 6-14 09-12 l tablets by Heal sodium 00:00: 23:59 disability mouth 2 (SENNA 00 :00 (two) PLUS) times a 8.6-50 mg day for 90 tablet days mirtazapine 2021- No Intellectua 15mg Take 1 [place] (REMERON) 6-14 09-12 l tablet by [facility] 15 mg 00:00: 23:59 disability mouth at tablet 00 :00 bedtime nightly for 90 days lithium 2021- No Intellectua 300mg Q.5D Take 1 [place] carbonate 6-14 09-12 l capsule by [facility] (KALITH) 00:00: 23:59 disability mouth 2 300 mg 00 :00 (two) capsule times a day for 90 days haloperidoL 2021- No Intellectua 20mg Take 2 [place] (HALDOL) 10 6-14 09-12 l tablets by H ealth mg tablet 00:00: 23:59 disability mouth at 00 :00 bedtime nightly for 90 days cloNIDine 2021- No Intellectua .1mg Take 1 [place] HCL 6-14 09-12 l tablet by [facility] (CATAPRES) 00:00: 23:59 disability mouth 0.1 mg 00 :00 every tablet evening amitriptyli 2021- No Intellectua 10mg Take 1 [place] ne (ELAVIL) 6-14 09-12 l tablet by [facility] 10 mg 00:00: 23:59 disability mouth at tablet 00 :00 bedtime nightly sennosides- 2021- No Intellectua 2{tbl} Q.5D Take 2 [place] docusate 6-14 09-12 l tablets by Heal sodium 00:00: 23:59 disability mouth 2 (SENNA 00 :00 (two) PLUS) times a 8.6-50 mg day for 90 tablet days mirtazapine 2021- No Intellectua 15mg Take 1 [place] (REMERON) 6-14 09-12 l tablet by [facility] 15 mg 00:00: 23:59 disability mouth at tablet 00 :00 bedtime nightly for 90 days lithium 2021-2021- No Intellectua 300mg Q.5D Take 1 [place] carbonate 6-14 09-12 l capsule by [facility] ([facility]) 00:00: 23:59 disability mouth 2 300 mg 00 :00 (two) capsule times a day for 90 days haloperidoL 2021- No Intellectua 20mg Take 2 [place] (HALDOL) 10 6-14 09-12 l tablets by ealth mg tablet 00:00: 23:59 disability mouth at 00 :00 bedtime nightly for 90 days cloNIDine 2021-2021- No Intellectua .1mg Take 1 [place] HCL 6-14 09-12 l tablet by [facility] (CATAPR) 00:00: 23:59 disability mouth 0.1 mg 00 :00 every tablet evening amitriptyli 2021- No Intellectua 10mg Take 1 [place] ne (ELAVIL) 6-14 09-12 l tablet by [facility] 10 mg 00:00: 23:59 disability mouth at tablet 00 :00 bedtime nightly sennosides- 2021- No Intellectua 2{tbl} Q.5D Take 2 [place] docusate 6-14 09-12 l tablets by [facility] sodium 00:00: 23:59 disability mouth 2 (SENNA 00 :00 (two) PLUS) times a 8.6-50 mg day for 90 tablet days mirtazapine 2021- No Intellectua 15mg Take 1 [place] (REMERON) 6-14 09-12 l tablet by [facility] 15 mg 00:00: 23:59 disability mouth at tablet 00 :00 bedtime nightly for 90 days lithium 2021-0 2021- No Intellectua 300mg Q.5D Take 1 [place] carbonate 6-14 09-12 l capsule by [facility] (ESKALITH) 00:00: 23:59 disability mouth 2 300 mg 00 :00 (two) capsule times a day for 90 days haloperidoL 2021-2021- No Intellectua 20mg Take 2 [place] (HALDOL) 10 6-14 09-12 l tablets by H ealth mg tablet 00:00: 23:59 disability mouth at 00 :00 bedtime nightly for 90 days cloNIDine 2021-2021- No Intellectua .1mg Take 1 [place] HCL 6-14 09-12 l tablet by [facility] (CATAPRES) 00:00: 23:59 disability mouth 0.1 mg 00 :00 every tablet evening amitriptyli 2021- No Intellectua 10mg Take 1 [place] ne (ELAVIL) 6-14 09-12 l tablet by [facility] 10 mg 00:00: 23:59 disability mouth at tablet 00 :00 bedtime nightly sennosides- 2021-2021- No Intellectua 2{tbl} Q.5D Take 2 [place] docusate 6-14 09-12 l tablets by Heal sodium 00:00: 23:59 disability mouth 2 (SENNA 00 :00 (two) PLUS) times a 8.6-50 mg day for 90 tablet days mirtazapine 2021- No [facility]ua 15mg Take 1 [place] (REMERON) 6-14 09-12 l tablet by [facility] 15 mg 00:00: 23:59 disability mouth at tablet 00 :00 bedtime nightly for 90 days lithium 2021-2021- No Intellectua 300mg Q.5D Take 1 [place] carbonate 6-14 09-12 [facility] 00:00: 23:59 disability mouth 2 300 mg 00 :00 (two) capsule times a day for 90 days haloperidoL 2021-2021- No Intellectua 20mg Take 2 [place] (HALDOL) 10 6-14 09-12 l tablets by H ealth mg tablet 00:00: 23:59 disability mouth at 00 :00 bedtime nightly for 90 days cloNIDine 2021- No Intellectua .1mg Take 1 [place] HCL 6-14 09-12 l tablet by [facility] (CATAPRES) 00:00: 23:59 disability mouth 0.1 mg [...] [place] (REMERON) 6-14 09-12 l tablet by [facility] th 15 mg 00:00: 23:59 disability mouth at tablet 00 :00 bedtime nightly for 90 days lithium 2021- No Intellectua 300mg Q.5D Take 1 [place] carbonate 6-14 09-12 [facility] 00:00: 23:59 disability mouth 2 300 mg 00 :00 (two) capsule times a day for 90 days haloperidoL 2021- No Intellectua 20mg Take 2 [place] (HALDOL) 10 6-14 09-12 l tablets by ealth mg tablet 00:00: 23:59 disability mouth at 00 :00 bedtime nightly for 90 days cloNIDine 2021- No Intellectua .1mg Take 1 [place] HCL 6-14 09-12 l tablet by [facility] (CATAPRES) 00:00: 23:59 disability mouth 0.1 mg 00 :00 every tablet evening amitriptyli 2021- No Intellectua 10mg Take 1 [place] ne (ELAVIL) 6-14 09-12 l tablet by [facility] 10 mg 00:00: 23:59 disability mouth [...] [place] (REMERON) 6-14 09-12 l tablet by [facility] 15 mg 00:00: 23:59 disability mouth at tablet 00 :00 bedtime nightly for 90 days lithium 2021- No Intellectua 300mg Q.5D Take 1 [place] carbonate 6-14 09-12 l capsule by [facility] (ESKALITH) 00:00: 23:59 disability mouth 2 300 mg 00 :00 (two) capsule times a day for 90 days haloperidoL 2021- No Intellectua 20mg Take 2 [place] (HALDOL) 10 6-14 09-12 l tablets by ealth mg tablet 00:00: 23:59 disability mouth at 00 :00 bedtime nightly for 90 days cloNIDine 2021- No Intellectua .1mg Take 1 [place] HCL 6-14 09-12 l tablet by [facility] (CATAPRES) 00:00: 23:59 disability mouth 0.1 mg [...] mg 00 :00 Center per tablet cloNIDine 2021-0 2- No .1mg Take 0.[address] [facility] 6-14 09-12 mg by [facility] (CATAPRES) 00:00: 23:59 mouth. Medi jonatan 0.1 MG 00 :00 Center tablet senna-docus 2021-0 2022- No 2{tbl} Take [address] ate 6-14 09-12 tablets by [facility] (SENOKOT S) 00:00: 23:59 mouth. Med ical 8.6-50 mg 00 :00 Center per tablet cloNIDine 2021-0 2021- No .1mg Take 0.[address] [facility] HCL 6-14 09-12 mg by [facility] (CATAPRES) 00:00: 23:59 mouth. Medi jonatan 0.1 MG 00 :00 Center tablet senna-docus 2021-2021- No 2{tbl} Take [address] ate 6-14 09-12 tablets by [facility] (SENOKOT S) 00:00: 23:59 mouth. Med ical 8.6-50 mg 00 :00 Center per tablet cloNIDine 2021-0 2021- No .1mg Take 0.[address] [facility] HCL 6-14 09-12 mg by [facility] (CATAPRES) 00:00: 23:59 mouth. Medi jonatan 0.1 MG 00 :00 Center tablet senna-docus 2021-0 2021- No 2{tbl} Take [address] ate 6-14 09-12 tablets by [facility] (SENOKOT S) 00:00: 23:59 mouth. Med ical 8.6-50 mg 00 :00 Center per tablet sucralfate 2022-0 Yes 1g Q.25D Take 1 [...] tablet 00 times Center daily. lithium 300 2022-0 Yes 300mg Q.[id number] Take [address] [address] MG capsule 5-27 [id number] mg by Amalia kes 00:00: 3D mouth 3 Medical 00 (three) Center times daily. lithium 300 2022-0 Yes 300mg Q.[id number] Take [address] MG capsule 5-27 [id number] mg by Amalia kes 00:00: 3D mouth 3 Medical 00 (three) Center times daily. lithium 300 2022-0 Yes 300mg Q.[id number] Take [address] MG capsule 5-27 [id number] mg by Amalia kes 00:00: 3D mouth 3 Medical 00 (three) Center times daily. lithium 300 2022-0 Yes 300mg Q.[id number] Take [address] MG capsule 5-27 [id number] mg by Amalia kes 00:00: 3D mouth 3 Medical 00 (three) Center times daily. lithium 300 2022-0 Yes 300mg Q.[id number] Take [address] MG capsule 5-27 [id number] mg by Amalia kes 00:00: 3D mouth 3 Medical 00 (three) Center times daily. lithium 300 2022-0 Yes 300mg Q.[id number] Take [address] MG capsule 5-27 [id number] mg by Amalia kes 00:00: 3D mouth 3 Medical 00 (three) Center times daily. amitriptyli 2022-0 Yes 10mg QD Take [address] ne (ELAVIL) 5-25 by mouth Luke s 10 MG 16:23: nightly. Medical tablet 12 [place] benztropine 2021-0 Yes 2mg Q.5D Take [address] (COGENTIN) 5-25 by mouth 2 Chrissie es 2 MG tablet 16:23: (two) Medic al 12 times Center daily. clorazepate 2-0 Yes 3.75mg Q.5D Take 3.[address] [...] 15 MG 16:23: nightly. Medical tablet 12 [place] OLANZapine 2021-0 Yes 10mg QD Take [address] (ZYPREXA) 5-25 by mouth [facility] 10 MG 16:23: nightly. Medical tablet 12 [place] primidone 2021-0 Yes 50mg Q.25D Take [address] (MYSOLINE) 5-25 by mouth 4 Chrissie es 50 MG 16:23: (four) Medical tablet 12 times Center daily. propranoloL 2021-0 Yes 40mg Q.[id number] Take [address] [facility] [facility] (INDERAL) 5-25 [id number] by mouth 3 [facility] 40 MG 16:23: 3D (three) Medical tablet 12 times Center daily. traZODone 2021-0 Yes 100mg QD Take [address] (DESYREL) 5-25 mg by [facility] 100 MG 16:23: mouth Medical tablet 12 nightly. [place] mirtazapine 2021-0 Yes 15mg QD Take [address] [facility] [facility] (REMERON) 5-25 by mouth [facility] 15 MG 16:23: nightly. Medical tablet 12 [place] OLANZapine 2021-0 Yes 10mg QD Take [address] (ZYPREXA) 5-25 by mouth [facility] 10 MG 16:23: nightly. Medical tablet 12 [place] primidone 2021-0 Yes 50mg Q.25D Take [address] (MYSOLINE) 5-25 by mouth 4 Chrissie es 50 MG 16:23: (four) Medical tablet 12 times Center daily. propranoloL 2022-0 Yes 40mg Q.[id number] Take [address] [facility] [facility] (INDERAL) 5-25 [id number] by mouth 3 [facility] 40 MG 16:23: 3D (three) Medical tablet 12 times Center daily. traZODone 2022-0 Yes 100mg QD Take [address] (DESYREL) 5-25 mg by [facility] 100 MG 16:23: mouth Medical tablet 12 nightly. [place] amitriptyli 2021-0 Yes 10mg QD Take 10 [...] Medica l 12 times Center daily. mirtazapine 2-0 Yes 15mg QD Take [address] (REMERON) 5-25 by mouth [facility] 15 MG 16:23: nightly. Medical tablet 12 Center OLANZapine 2021-0 Yes 10mg QD Take [address] (ZYPREXA) 5-25 by mouth [facility] 10 MG 16:23: nightly. Medical tablet 12 Center primidone 2022-0 Yes 50mg Q.25D Take [address] (MYSOLINE) 5-25 by mouth 4 Chrissie es 50 MG 16:23: (four) Medical tablet 12 times Center daily. propranoloL 2022-0 Yes 40mg Q.[id number] Take [address] [facility] (INDERAL) 5-25 [id number] by mouth 3 [facility] 40 MG 16:23: 3D (three) Medical tablet 12 times Center daily. traZODone 2021-0 Yes 100mg QD Take [address] (DESYREL) 5-25 mg by [facility] 100 MG 16:23: mouth Medical tablet 12 nightly. [place] amitriptyli 0 Yes 10mg QD Take [address] [facility] [address] ne (ELAVIL) 5-25 by mouth Luke s 10 MG 16:23: nightly. Medical tablet 12 [place] benztropine 0 Yes 2mg Q.5D Take 2 [...] 15 MG 16:23: nightly. Medical tablet 12 [place] OLANZapine 0 Yes 10mg QD Take [address] (ZYPREXA) 5-25 by mouth [facility] 10 MG 16:23: nightly. Medical tablet 12 [place] primidone 0 Yes 50mg Q.25D Take [address] (MYSOLINE) 5-25 by mouth 4 Chrissie es 50 MG 16:23: (four) Medical tablet 12 times Center daily. propranoloL 2021-0 Yes 40mg Q.[id number] Take [address] [facility] [facility] (INDERAL) 5-25 [id number] by mouth 3 [facility] 40 MG 16:23: 3D (three) Medical tablet 12 times Center daily. traZODone 2021-0 Yes 100mg QD Take [address] (DESYREL) 5-25 mg by [facility] 100 MG 16:23: mouth Medical tablet 12 nightly. [place] amitriptyli 0 Yes 10mg QD Take [address] [address] ne (ELAVIL) 5-25 by mouth Luke [facility] 10 MG 16:23: nightly. Medical tablet 12 [place] benztropine 2021-0 Yes 2mg Q.5D Take 2 [...] 15 MG 16:23: nightly. Medical tablet 12 [place] OLANZapine 0 Yes 10mg QD Take [address] (ZYPREXA) 5-25 by mouth [facility] 10 MG 16:23: nightly. Medical tablet 12 [place] primidone 2021-0 Yes 50mg Q.25D Take [address] (MYSOLINE) 5-25 by mouth 4 Chrissie es 50 MG 16:23: (four) Medical tablet 12 times Center daily. propranoloL 2021-0 Yes 40mg Q.[id number] Take [address] [facility] (INDERAL) 5-25 [id number] by mouth 3 [facility] 40 MG 16:23: 3D (three) Medical tablet 12 times Center daily. traZODone 2021-0 Yes 100mg QD Take [address] (DESYREL) 5-25 mg by [facility] 100 MG 16:23: mouth Medical tablet 12 nightly. [place] amitriptyli 2021-0 Yes 10mg QD Take [address] ne (ELAVIL) 5-25 by mouth Luke s 10 MG 16:23: nightly. Medical tablet 12 [place] benztropine 2021-0 Yes 2mg Q.5D Take 2 [...] times Center daily. propranoloL 2021-0 Yes 40mg Q.[id number] Take [address] [facility] (INDERAL) 5-25 [id number] by mouth 3 [facility] 40 MG 16:23: 3D (three) Medical tablet 12 times Center daily. traZODone 2021-0 Yes 100mg QD Take [address] (DESYREL) 5-25 mg by [facility] 100 MG 16:23: mouth Medical tablet 12 nightly. [place] amitriptyli 0 Yes 10mg QD Take 10 [...] (four) Medica l 12 times Center daily. polyethylen 2021- No 17g QD Take 17 [...] kg Systolic blood 2022-01-12 17:37:00 114 mm[Hg] [facility] Diastolic blood 2022-01-12 17:37:00 74 mm[Hg] [facility] Heart rate 2022-01-12 17:37:00 60 /min [facility] Respiratory rate 2022-01-12 17:37:00 16 /min [facility] Oxygen saturation in 2022-01-12 17:37:00 98 /min [facility] Arterial blood by Medical Ce nter Pulse oximetry Body temperature 2022-01-12 15:34:00 36.67 [facility] Body height 2022-01-12 15:34:00 162.6 cm [facility] Body weight 2022-01-12 15:34:00 54.432 kg [facility] BMI 2022-01-12 15:34:00 20.60 kg/m2 [facility] Systolic blood 2021-12-23 11:21:00 89 mm[Hg] [place] [facility] pressure Diastolic blood 2021-12-23 11:21:00 56 mm[Hg] [facility] pressure Heart rate 2021-12-23 11:21:00 64 /min [place] [facility] Respiratory rate 2021-12-23 11:21:00 18 /min [facility] Body height 2021-12-23 11:21:00 167.6 cm [facility] Body weight 2021-12-23 11:21:00 51.71 kg [place] ealt BMI 2021-12-23 11:21:00 18.40 kg/m2 Talha Hen[facility] Body temperature 2021-12-16 11:10:00 37.06 Darling [facility] Oxygen saturation in 2021-12-16 11:10:00 97 /min [facility] Arterial blood by Pulse oximetry Respiratory rate 2021-07-30 18:40:00 20 /min [facility] Body height 2021-07-30 18:40:00 177.8 cm [facility] Body weight 2021-07-30 18:40:00 54.1 kg [facility] BMI 2021-07-30 18:40:00 17.11 kg/m2 [facility] Oxygen saturation in 2021-07-30 18:40:00 100 /min [facility] Arterial blood by Medical Ce nter Pulse oximetry Systolic blood 2021-07-30 18:40:00 102 mm[Hg] [facility] Diastolic blood 2021-07-30 18:40:00 60 mm[Hg] [facility] Heart rate 2021-07-30 18:40:00 56 /min [facility] Body temperature 2021-07-30 18:40:00 36.61 Darling [facility] Procedures Procedure Date / Time Performed Performing Clinician Sourwarren e CBC W/PLT COUNT & AUTO 2022-01-12 16:35:[address] [place] [address] [facility] DIFFERENTIAL [facility] COMPREHENSIVE METABOLIC 2022-01-12 16:35:[address] [place] [address] [facility] PANEL [facility] B-TYPE NATRIURETIC FACTOR 2022-01-12 16:35:[address] [facility] (BNP) [facility] CBC W/PLT COUNT & AUTO 2022-01-12 16:35:[address] [place] [address] [facility] DIFFERENTIAL [facility] CBC (WITHOUT 2021-12-23 12:16:00 Annie Moon [place] [facility] DIFFERENTIAL) COMPREHENSIVE METABOLIC 2021-12-23 12:16:00 Annie Moon [facility] PANEL HGB/HCT 2021-12-15 15:09:00 Ruthy Matthews lt XRAY MODIFIED BARIUM 2021-12-15 11:40:00 Ruthy Matthews [facility] SWALLOW W CINE/VIDEO (MBS) GLUCOSE POC 2021-12-15 10:53:00 Elida Peter [facility] LIVER PROFILE 2021-12-15 04:50:00 Mutucumarwillie, [facility] Malissa P BASIC METABOLIC PANEL 2021-12-15 04:50:00 Mutucumarwillie, [facility] Malissa P CBC/DIFF 2021-12-15 04:50:00 Mutucumarwillie, [facility] h Malissa P CBC 2021-12-15 04:50:00 Mutucumarwillie, [facility] Malissa P DIFFERENTIAL, MANUAL-WAM 2021-12-15 04:50:00 Mutucumarana, [facility] Malissa P XRAY CHEST 1 VIEW 2021-12-14 14:06:00 Ruthy Matthews ealt 12 LEAD EKG 2021-12-14 14:05:19 Ruthy Matthews [facility] lt GLUCOSE POC 2021-12-14 14:00:00 Elida Peter [facility] PT/INR/PTT 2021-12-14 13:44:00 Tera Quijano h [place] PRO 2021-12-14 13:44:00 Tera Quijano alth COAG STUDIES INTERP 2021-12-14 13:44:00 QuijanoTera wilson ealt REPORT (BKR) CONSULT CLINICAL CASE 2021-12-14 12:14:27 Seun [facility] MANAGEMENT (RN/SW) Malissa P CBC/DIFF 2021-12-14 09:43:00 Ruthy Matthews lth CBC 2021-12-14 09:43:00 Ruthy Matthews lth DIFFERENTIAL, MANUAL-WAM 2021-12-14 09:43:00 Ruthy Matthews [facility] LITHIUM 2021-12-14 08:35:00 Ruthy Matthews a lt LIVER PROFILE 2021-12-14 04:28:00 Mutucumarana, [facility] h Malissa P BASIC METABOLIC PANEL 2021-12-14 04:28:00 Mutucumarana, [facility] Malissa P CBC/DIFF 2021-12-14 04:28:00 Mutucumarana, [facility] h Malissa P CBC 2021-12-14 04:28:00 Mutucumarana, [facility] Malissa P RBC MORPHOLOGY-WAM 2021-12-14 04:28:00 Mutucumarana, [facility] alth Malissa P LITHIUM 2021-12-13 21:15:00 Mutucumarana, [facility] Malissa P COMMODE AT BEDSIDE 2021-12-13 08:17:33 Elida Peter [facility] ealth LIVER PROFILE 2021-12-13 04:53:00 Mutucumarana, [facility] h Malissa P BASIC METABOLIC PANEL 2021-12-13 04:53:00 Mutucumarana, [facility] Malissa P CBC/DIFF 2021-12-13 04:53:00 Mutucumarana, [facility] h Malissa P CBC 2021-12-13 04:53:00 Mutucumarana, [facility] h Malissa P LIVER PROFILE 2021-12-12 04:26:00 [facility]ana, [facility] [place] P SEQUENTIAL COMPRESSION 2021-12-12 00:42:25 Elida Peter [facility] PUMP CBC/DIFF 2021-12-11 04:51:00 Mutucumarana, [facility] h Malissa P BASIC METABOLIC PANEL 2021-12-11 04:51:00 Mutucumarana, [facility] Malissa P LIVER PROFILE 2021-12-11 04:51:00 Mutucumarana, [facility] h Malissa P CBC 2021-12-11 04:51:00 Mutucumarana, [facility] h Malissa P RETIC COUNT 2021-12-11 04:51:00 Tera Quijano [facility] U/S ABDOMEN LIMITED 2021-12-10 08:50:00 Byron, Padmavajerome [facility] CBC/DIFF 2021-12-10 05:32:00 Mutucumarana, [facility] Malissa P BASIC METABOLIC PANEL 2021-12-10 05:32:00 Mutucumarana, [facility] Malissa P LIVER PROFILE 2021-12-10 05:32:00 Mutucumarana, [facility] Mal[place] P CBC 2021-12-10 05:32:00 Mutucumarana, [facility] [place] [facility] CT FEMUR W CONTRAST 2021-12-09 16:25:48 ByronRamona jimenezjerome [facility] CBC/DIFF 2021-12-09 04:35:00 Mutucumarana, [facility] Malissa P BASIC METABOLIC PANEL 2021-12-09 04:35:00 Mutucumarana, [facility] Malissa P LIVER PROFILE 2021-12-09 04:35:00 Mutucumarana, [facility] Malissa P CBC 2021-12-09 04:35:00 Mutucumarana, [facility] h Malissa P VIT D, 25-HYDROXY 2021-12-09 04:35:00 Ruthy Matthews [facility] eah COMMODE AT BEDSIDE 2021-12-08 21:45:09 Elida Peter [facility] ealt CBC/DIFF 2021-12-08 05:03:00 Mutucumarana, [facility] Malissa P BASIC METABOLIC PANEL 2021-12-08 05:03:00 Mutucumarana, [facility] Malissa P LIVER PROFILE 2021-12-08 05:03:00 Mutucumarana, [facility] Mal[place] P CBC 2021-12-08 05:03:00 Mutucumarana, [facility] h Malissa P INFUSION PUMP 2021-12-07 18:01:36 Elida Peter [facility] CBC/DIFF 2021-12-07 05:21:00 Byron Ruthy [place] [facility] BASIC METABOLIC PANEL 2021-12-07 05:21:00 Ruthy Matthews [facility] LIVER PROFILE 2021-12-07 05:21:00 Elida Peter [facility] LACTATE DEHYDROGENASE 2021-12-07 05:21:00 Elida Peter [facility] HAPTOGLOBIN 2021-12-07 05:21:00 Elida Peter [facility] AMMONIA 2021-12-07 05:21:00 Elida Peter [facility] CBC 2021-12-07 05:21:00 Compa Matthewsyoseftaniya [facility] lt PT/INR/PTT 2021-12-06 05:02:00 Ruthy Matthews [facility] lt CT ABDOMEN AND PELVIS 2021-12-05 16:10:17 Ruthy Matthews [facility] CONTRAST CT CHEST W CONTRAST 2021-12-05 16:10:17 Michael [facility] PATH[facility] REVIEW 2021-12-05 04:08:00 Tera Quijano [facility] SAVE SMEAR/ NOT FOR PATH 2021-12-05 04:08:00 Tera Quijano [facility] REVIEW LEAD, WHOLE BLOOD (ADULT) 2021-12-04 11:14:00 [facility] DIRECT ANTIGLOBULIN TEST 2021-12-04 10:15:00 [facility] BETZY/ DIRECT MARINA Malissa Martin HIV AG/AB COMBO ROUTINE 2021-12-04 10:15:00 Seun [facility] SCREENING Malissa P HEPATITIS PANEL 2021-12-04 10:15:00 Seun [place] [facility]is Malissa P HEMOGLOBIN A1C 2021-12-04 04:06:00 Talha Kohli Mal[place] P LACTATE DEHYDROGENASE 2021-12-04 04:06:00 Seun [facility] Malissa P CBC/DIFF 2021-12-04 04:06:00 Ruthy Matthews [facility] BASIC METABOLIC PANEL 2021-12-04 04:06:00 Ruthy Matthews [facility] CBC 2021-12-04 04:06:00 Ruthy Matthews [facility] RETIC COUNT 2021-12-04 04:06:00 Seun [place] Lo[facility] Malissa P SAVE SMEAR/ NOT FOR PATH 2021-12-04 04:06:00 Mutucumarana, [facility] REVIEW Malissa P FREE T4 2021-12-04 04:06:00 Compa Matthewschristijerome [place] [facility] URINALYSIS W/REFLEX TO 2021-12-03 16:54:00 Mutucumarwillie, [facility] URINE CULTURE Malissa P URINALYSIS 2021-12-03 16:54:00 Seun [place] [facility] P URINE CULTURE COLLECTION 2021-12-03 16:54:00 Mutucumarwillie, [facility] KIT Malissa P NUTRITION CONSULT 2021-12-03 07:40:36 Talha Kohli [facility] ASSESSMENT Malissa P IRON PROFILE 2021-12-03 04:44:00 Seun, [facility] Mal[place] P CBC/DIFF 2021-12-03 04:44:00 Talha Kohli Malissa P CBC 2021-12-03 04:44:00 Seun [facility] Malissa P THYROID STIMULATING 2021-12-03 04:44:00 Talha Kohli ealth HORMONE (TSH) Malissa P VITAMIN B12 2021-12-03 04:44:00 Seun [facility] Malissa P FOLIC ACID 2021-12-03 04:44:00 Seun [facility] Malissa P FREE T4 2021-12-03 04:44:00 Seun [facility] Malissa P HAPTOGLOBIN 2021-12-03 04:44:00 Mutucumarwillie, [facility] Malissa P SAVE SMEAR/ NOT FOR PATH 2021-12-03 04:44:00 Mutucumarana, [facility] REVIEW Malissa P SEQUENTIAL COMPRESSION 2021-12-03 03:19:55 Mutucumarana, [facility] PUMP Malissa P SARS-COV-2, FLU A/B, RSV 2021-12-03 01:06:00 Judith Perla [facility] CORONAVIRUS, COVID-19, 2021-12-03 01:06:00 Rajha, Judith [facility] YOSHI CREATININE POC 2021-12-02 20:31:00 Talha Gutierrez kale Kym BMP POC 2021-12-02 20:31:00 Loin Parry Talha Abreu kale Kym CBC/DIFF 2021-12-02 20:17:00 Marino Crooks [facility] CBC 2021-12-02 20:17:00 Marino Crooks [facility] LITHIUM 2021-12-02 20:17:00 Moe Sim [facility] COMPREHENSIVE METABOLIC 2021-12-02 20:17:00 Seun [facility] PANEL Malissa P FERRITIN 2021-12-02 20:17:00 Talha Kohli [place] P CT HEAD W/O CONTRAST 2021-12-02 18:26:07 Judith Perla [facility] CT ABDOMEN/PELVIS WITH IV 2021-07-30 20:25:00 Brii Campbell [facility] CBC W/PLT COUNT & AUTO 2021-07-30 19:37:[address] [facility] BASIC METABOLIC PANEL (7) 2021-07-30 19:37:00 Brii Campbell [facility] PROTHROMBIN TIME/INR 2021-07-30 19:37:00 IoneBrii [facility] CBC W/PLT COUNT & AUTO 2021-07-30 19:37:[address] [facility] Plan of Care Planned Activity [...] Future Scheduled 2022-03-03 HEPATITIS B VACCINES Met [facility] Test 12:27:23 (1 of 3 - 3-dose series) [code = HEPATITIS B VACCINES (1 of 3 - 3-dose series)] Future Scheduled 2022-03-03 COVID-19 [facility]INE [facility] Test 12:27:23 (#1) [code = COVID-19 VACCINE (#1)] Future Scheduled 2022-03-03 INFLUENZA VACCINE Method [facility] Test 12:27:23 [code = INFLUENZA VACCINE] Future Scheduled 2022-03-03 HEPATITIS B VACCINES Met [facility] Test 12:27:23 (1 of 3 - 3-dose series) [code = HEPATITIS B VACCINES (1 of 3 - 3-dose series)] Future Scheduled 2022-03-03 [facility] (#1) [code = COVID-19 VACCINE (#1)] Future Scheduled 2022-03-03 INFLUENZA VACCINE Method [facility] Test 12:27:23 [code = INFLUENZA VACCINE] Future Scheduled 2022-03-03 HEPATITIS B VACCINES Met [facility] Test 12:27:23 (1 of 3 - 3-dose series) [code = HEPATITIS B VACCINES (1 of 3 - 3-dose series)] Future Scheduled 2022-03-03 [facility] 12:27[facility]23 (#1) [code = COVID-19 VACCINE (#1)] Future Scheduled 2022-03-03 INFLUENZA VACCINE Method [facility] Test 12:27:23 [code = INFLUENZA VACCINE] Future Scheduled 2022-02-19 HEPATITIS B VACCINES Met [facility] Test 10:27:57 (1 of 3 - 3-dose series) [code = HEPATITIS B VACCINES (1 of 3 - 3-dose series)] Future Scheduled 2022-02-19 [facility] 10:27:57 (#1) [code = COVID-19 VACCINE (#1)] Future Scheduled 2022-02-19 INFLUENZA VACCINE Method [facility] Test 10:27:57 [code = INFLUENZA VACCINE] Future Scheduled 2022-02-19 HEPATITIS B VACCINES Met [facility] Test 10:27:57 (1 of 3 - 3-dose series) [code = HEPATITIS B VACCINES (1 of 3 - 3-dose series)] Future Scheduled 2022-02-19 [facility] 10:27:57 (#1) [code = COVID-19 VACCINE (#1)] Future Scheduled 2022-02-19 INFLUENZA VACCINE Method [facility] Test 10:27:57 [code = INFLUENZA VACCINE] Future Scheduled 2022-02-19 HEPATITIS B VACCINES Met [facility] Test 10:27:57 (1 of 3 - 3-dose series) [code = HEPATITIS B VACCINES (1 of 3 - 3-dose series)] Future Scheduled 2022-02-19 COVID-[address] [facility] Test 10:27:57 (#1) [code = COVID-19 VACCINE (#1)] Future Scheduled 2022-02-19 INFLUENZA VACCINE Method [facility] Hospital Test 10:27:57 [code = INFLUENZA VACCINE] Future Scheduled 2021-07-[address] [...] Test 00:00:00 (procedure) [code = Medical Center [id number]] Future Scheduled 2019-11-[address] [facility] Test 00:[facility]:00 (procedure) [code = Medical Center [id number]] Future Scheduled 2019-11-[address] [facility] Test 00:00:00 (procedure) [code = Medical Center [id number]] Future Scheduled 2019-11-[address] [facility] Test 00:00:00 (procedure) [code = Medical Center [id number]] Future Scheduled 2019-11-[address] [facility] Test 00:00:00 (procedure) [code = Medical Center [id number]] Future Scheduled 2019-11-[address] [facility] Test 00:00:00 (procedure) [code = Medical Center [id number]] Future Scheduled 2019-11-[address] [facility] Test 00:00:00 (procedure) [code = Medical Center [id number]] Future Scheduled 2019-11-[address] [facility] Test 00:00:00 (procedure) [code = Medical Center [id number]] Future Scheduled 2019-11-[address] [facility] Test 00:00:00 (procedure) [code = Medical Center [id number]] Future Scheduled 2019-11-[address] [facility] Test 00:00:00 (procedure) [code = Medical Center [id number]] Future Scheduled 2019-11-[address] [facility] Test 00:00:00 (procedure) [code = Medical Center [id number]] Future Scheduled 2019-11-[address] [facility] Test 00:00:00 (procedure) [code = Medical Center [id number]] Future Scheduled 2011-01-[address] [...] VACCINE (#1)] Future Scheduled 1985 Fluoride Varnish [facility] Test 00:00:00 [code = Fluoride Varnish] Future Scheduled 1985 Fluoride Varnish [facility] Test 00:00:00 [code = Fluoride Varnish] Future Scheduled 1985 Fluoride Varnish [facility] Test 00:00:00 [code = Fluoride Varnish] Future Scheduled 1985 Fluoride Varnish [facility] Test 00:00:00 [code = Fluoride Varnish] Future Scheduled 1985 Fluoride Varnish [facility] Test 00:00:00 [code = Fluoride Varnish] Future Scheduled 1985 Fluoride Varnish [facility] Test 00:00:00 [code = Fluoride Varnish] Encounters Start End Encounter Admission Attending Care Care Encounter Source Date/Time Date/Time Type Type Clinicians Facility Department ID 2022-02-08 Outpatient [facility] [id number] [place] 12:40:13 [id number] [facility] 2022-01-25 Outpatient [facility] [id number] [place] 13:48:30 [id number] [facility] 2022-01-15 Out[id number] 09:20:35 WANDA 2022-05-03 2022-05-03 Outpatient [facility] [id number] [address] [place] [id number] 00:00:00 00:00:00 KAMILLE Lois 2022-04-05 2022-04-05 [facility] [id number] [address] [place] [address] 00:00:00 00:00:00 [facility]IL[facility] 2022-03-12 2022-03-12 Outpatient GC_BAHC_Tod PRIV PRIV [id number] [facility] 00:00:00 00:00:00 d_J [id number] Medica l 2022-03-05 2022-03-05 Outpatient Vijay, PRIV PRIV [id number] [id number] 00:00:00 00:00:00 Mariela [id number] 2022-03-02 2022-03-02 Outpatient Vijay, PRIV PRIV [id number] 00:00:00 00:00:00 Mariela [id number] 2022-02-28 2022-02-28 Outpatient GC_BAHC_Tod PRIV PRIV [id number] [facility] 00:00:00 00:00:00 d_J [id number] Medica l 2022-02-25 2022-02-25 Outpatient Lizbeth, PRIV PRIV [id number] 00:00:00 00:00:00 Damir Umana [id number] 2022-02-23 2022-02-23 Outpatient Vijay, PRIV PRIV [id number] 00:00:00 00:00:00 Mariela [id number] 2022-02-19 2022-02-19 Outpatient GC_BAHC_Tod PRIV PRIV [id number] [facility] 00:00:00 00:00:00 d_J [id number] Medica l 2022-02-19 2022-02-19 Outpatient Vijay, PRIV PRIV [id number] 00:00:00 00:00:00 Mariela [id number] 2022-02-18 2022-02-18 Outpatient GC_BAHC_Tod PRIV PRIV [id number] [facility] 00:00:00 00:00:00 d_J [id number] Medica l 2022-01-26 2022-02-16 [id number] 14:02:00 21:42:00 Ritvivishnu 07 2022-01-26 2022-02-16 [facility] [id number] Memoria 14:02:00 21:42:00 [facility] 2022-02-02 2022-02-02 [facility] [id number] [place] 00:00:00 00:00:[address] [facility] 2022-01-18 2022-01-26 Inpatient E CHRISSY LLOYD MED [id number] MHBL 10:31:00 12:59:00 [facility] 2022-01-16 2022-01-26 Outpatient Chrissy, MAMADOU[address] [id number] 07:55:41 12:59:00 Arvind 2022-01-16 2022-01-26 Outpatient Chrissy, MHPL MHPL [id number] 07:55:41 12:59:00 Arvind 2022-01-16 2022-01-16 Outpatient MAMADOU VegaPL MHPL [id number] 07:55:41 07:55:[address] [place] [address] 2022-01-12 2022-01-12 Emergency Ai, [facility] [id number] 16:19:00 17:42:00 [facility] 2022-01-12 2022-01-12 Emergency ER Ai, [facility] [id number] 16:19:00 17:42:00 [facility] 2022-01-12 2022-01-12 Emergency ER AI, [facility] Emergency [id number] SLSL 16:19:00 17:42:00 [facility] 2022-01-12 2022-01-12 Travel [facility] [id number] [facility] 00:00:00 00:00:00 [facility] 2022-01-12 2022-01-12 Travel [facility] [id number] [facility] 00:[facility]00 00:00:00 [facility] 2022-01-08 2022-01-08 Emergency Zain Degroot HCAPM [facility] [id number] [facility] 12:40:00 18:44:00 95 [facility] 2022-01-08 2022-01-08 Emergency Zain Degroot HCAPM HCAPM LA61 [facility] 12:40:00 18:44:00 [id number] [facility] 2022-01-07 2022-01-07 Orders Betty, [facility] [id number] Talha 00:00:00 00:00:00 Only Meroe [facility] 2022-01-07 2022-01-07 Orders Betty, [facility] [id number] Talha 00:00:00 00:00:00 Only Meroe B [facility] 2021-12-23 2021-12-23 Outpatient SARAI, [facility] [id number] [place] 12:11:26 12:16:[address] [facility] 2021-12-23 2021-12-23 Office Sarai, [facility] [id number] [place] 11:00:00 12:16:02 Visit Annie Kale Lois 2021-12-23 2021-12-23 Office Sarai, [facility] [id number] [place] 11:00:00 12:16:02 Visit Annie henley 2021-12-23 2021-12-23 [facility] [id number] [place] 00:00:00 00:00:00 ANNIE [facility] 2021-12-23 2021-12-23 [facility] [id number] [place] 00:00:00 00:00:00 Only Annie henley 2021-12-23 2021-12-23 [facility] [id number] [place] 00:00:00 00:00:00 Only Annie henley 2021-12-02 2021-12-16 Emergency Kym Gutierrez [facility] [id number] [place] 16:49:00 11:54:00 Marla Bai Joslyn W Mutucumarana, Charmaine P 2021-12-02 2021-12-16 Emergency Kym Gutierrez [facility] [id number] [place] 16:49:00 11:54:00 Marla Bai Joslyn W Mutucumarana, Charmaine P 2021-12-15 2021-12-15 Outpatient [facility] [id number] [place] 11:10:10 11:58:48 Health 2021-12-14 2021-12-14 Outpatient [facility] [id number] [place] 15:58:03 15:58:08 Health 2021-12-14 2021-12-14 Outpatient [facility] [id number] [place] 13:56:45 14:11:44 Health 2021-12-10 2021-12-10 Outpatient [facility] [id number] [place] 08:04:54 09:52:59 Health 2021-12-09 2021-12-09 Outpatient [facility] [id number] [place] 14:31:10 16:27:35 Health 2021-12-05 2021-12-05 Outpatient [facility] [id number] [place] 15:47:31 16:10:42 Health 2021-12-05 2021-12-05 Outpatient [facility] [id number] [place] 00:00:00 00:00:00 [facility] 2021-12-02 2021-12-02 Emergency LION [facility] [id number] [place] 17:25:24 18:26:[facility] 2021-12-02 2021-12-02 Outpatient 1 SARAH, [facility] [id number] [place] 16:49:00 16:49:00 [facility] 2021-12-01 2021-12-01 Outpatient Jalal, MHSL MHSL [id number] 06:20:00 12:40:[address] [place] [address] 2021-12-01 2021-12-01 Outpatient JALAL, MHFB MHFB [id number] MHFB 06:20:00 12:40:00 [facility] 2021-12-01 2021-12-01 Outpatient Jalal, MHSL SL [id number] 08:00:00 08:00:[address] 2021-11-25 2021-11-25 Emergency Ojiaku, [facility] [id number] 16:20:00 16:55:00 [facility] 2021-11-25 2021-11-25 Emergency Ojiaku, [facility] [id number] 16:20:00 16:55:00 [facility] 2021-11-25 2021-11-25 Emergency ER [facility]IDAKU[facility] [id number] [facility] 16:20:00 16:55:00 [facility] 2021-07-31 2021-07-31 Travel [facility] [id number] [facility] 00:00:00 00:00:00 [facility] 2021-07-31 2021-07-31 Travel [facility] [id number] [facility] 00:00:00 00:00:00 [facility] 2021-07-30 2021-07-30 Emergency ER Stone, Brii [facility] [id number] 19:14:00 21:58:00 [facility] 2021-07-30 2021-07-30 Emergency ER STONE, BRII [facility] Emergency [id number] [facility] 19:14:00 21:58:2021-07-30 2021-07-[address] [facility] [id number] [facility] 19:14:00 21:58:00 [facility] 2018-07-01 2018-07-01 Outpatient Jitendra, PL PL [id number] 18:27:00 22:12:00 Jazmin 01 Lucero 2018-06-27 2018-06-29 Outpatient Nasra, PL PL [id number] 20:48:00 19:05:00 Ugochi 04 Kianna 2017-12-30 2017-12-30 Outpatient Ihchapito, Rony [facility] [id number] 10:30:00 12:31:00 U 03 2016-10-04 2016-10-08 Outpatient Carrie, PL PL [id number] 13:28:00 15:10:00 Annette 02 Yasmin 2016-04-17 2016-04-17 Outpatient Savita, PL PL [id number] 10:11:00 13:54:00 Ambica 2015-07-17 2015-07-18 Outpatient Vijay Combs [facility] [id number] 14:28:00 12:05:00 Foster 2015-07-17 2015-07-17 Outpatient Christianity, [facility] [id number] 11:42:00 14:15:00 Nadim B 00 Results Test Description Test Time Test Comments Results Result Comments Source B-TYPE NATRIURETIC FACTOR (BNP) 2022-01-12 17:12:09 Test Item Value Reference Range Interpretation Comme nts B-TYPE NATRIURETIC PEPTIDE (BEAKER) (test code = 700) 69 pg/mL 0-100 Diamond Grader ID - [id number] METABOLIC [id number] 17:06:08 Test Item Value Reference Range Interpretation [...] S NOT APPLICABLE FOR DIALYSIS PATIEN TS. Diamond Grader ID - [id number] ID - [id number] ID - [id number] ID - [id number] ID - [id number] ID - [id number] ID - [id number] ID - [id number] ID - [id number] ID - [id number] ID - [id number] ID - [id number] ID - [id number] ID - [id number] ID - [id number] ID - [id number] ID - [id number] ID - [id number] ID - [id number] W/PLT COUNT & AUTO [id number] 16:49:25 Test Item Value Reference Range Interpretation [...] code = 2801) - CTA CHEST FOR [id number] 18:27:00 [facility] 1985 Sex: M Name: VERÓNICA NUNN [facility] : 1985 Age/S: 36 / M [address] Unit #: [id number] Loc: [place] [address] Phys: Zain David Acct: [id number] Dis Date: Status: REG ER PHONE #: [phone] Exam Date: 01/08/2022 4714 FAX #: Reason: evaluate for PE EXAMS: CPT: [id number] [place] [address] EXAM: - CTA CHEST FOR PE LOCATION: H57 HISTORY: 36 years-year old Male with evaluate for PE TECHNIQUE: Axial tomograms through the chest were obtained after intravenous contrast utilizing pulmonaryembolus protocol. Coronal and sagittal reformatted images are provided. At least one MIP sequence was provided. This exam was performed according to our departmental dose-optimization program, which inc ludes automated exposure control, adjustment of the mA and/or kV according to patient size and/or use of iterative reconstruction technique. COMPARISON: None available time of interpretation. FINDINGS:Vasculature: No filling defects are seen in the [...] 1 Signed Report (CONTINUED) Name: VERÓNICA NUNN [facility] : 1985 Age/S: 36 / M [address] Unit #: [id number] Loc: [place] [address] Phys: Zain David DO Acct: [id number] Dis Date: Status: REG ER PHONE #: [phone] Exam Date: 01/08/2022 1803 FAX #: Reason: evaluate for PE EXAMS: CPT: [id number] [place] [address] (Continued) at 1827 Reported and signed by: Ba Anaya M.D. CC: Zain David DO Technologist:RT Gerard(R) CTDI: DLP: Trnscb Date/Time: 01/08/2022 (1826) SaraMKW1 Orig Print D/T: S: 01/08/2022 (1829) PAGE 2 Signed Report- DUP VEIN [id number] 16:52:00 [facility] 1985 Sex: M Name: VERÓNICA NUNN [facility] : 1985 Age/S: 36 / M [address] Unit #: [id number] Loc: [place] [address] Phys: FrankieZain Acct: [id number] Dis Date: Status: REG ER PHONE #: [phone] Exam Date: 01/08/2022 1648 FAX #: Reason: swelling EXAMS: CPT: [id number] DUP VEIN COMFORT 39110 EXAM: -DUP VEIN COMFORT LOCATION: H65 HISTORY: [...] CC: Zain David DO Technologist: Kianna Cardenas Trnpab Date/Time: 01/08/2022 (1651) SaraJW22 PAGE 1 Signed Report Name: VERÓNICA NUNN [place] : 1985 Age/S: 36 / M [address] Unit #: [id number] Loc: [place] [address] Phys: Zain David DO Acct: [id number] Dis Date: Status: REG ER PHONE #: [phone] Exam Date: 01/08/2022 1648 FAX #: Reason: swelling EXAMS: CPT: [id number] DUP VEIN COMFORT 23449 (Continued) Orig Print D/T: S: 01/08/2022 (1654) Probe: PAGE 2 Signed ReportTROP-I HIGH [id number] 15:07:00 Test Item Value Reference Range Interpretation [...] varyby method. Completed by Nursing: NOBASIC METABOLIC [id number] 15:07:00 Test Item Value Reference Range Interpretation [...] N Completed by Nursing: NONT PRO-BRAIN NATRIURETIC HGWFQ2716-36-79 15:07:00 Test Item Value Reference Range Interpretation Comments NT PRO-BRAIN NATRIURETIC PEPTI 163 PG/ML 0-100 H (test code = PROBNP) Completed by Nursing: XCT-IZRNB5913-66-08 15:04:00 Test Item Value Reference Range Interpretation [...] STS AND APPROPRIATECLIN ICAL EUALUATIONS. HEPATIC FUNCTION [id number] 14:58:00 Test Item Value Reference Range Interpretation [...] 50-136 N code = ALKP) CBC W/O [id number] 14:41:00 Test Item Value Reference Range Interpretation [...] 7.0-9.6 H MPV) - XR CHEST 1 [id number] 14:24:00 [facility] ALU[facility], VER[facility]NICA : 1985 Sex: M Name: VERÓNICA NUNN [place] : 1985 Age/S: 36 / M [address] Unit #: [id number] Loc: [place] [address] Phys: FrankieZain Acct: [id number] Dis Date: Status: REG ER PHONE #: [phone] Exam Date: 01/08/2022 1418 FAX #: Reason: chest pain EXAMS: CPT: [id number] XR CHEST 1 V 37928 Fluoro Time: DAP (Gy m2): Air Kerma (mGy): Site ID: [id number] HISTORY: Chest pain COMPARISON: None FINDINGS: Patchy bibasilar infiltrates may reflect pneumonia or atelectasis. The heart and pulmonary vasculature is normal. Osseous structures are unremarkable. IMPRESSION: Patchy bibasilar infiltrates may reflect pneumonia or atelectasis at 8917 Reported and signed by: Raymundo Delacruz M.D. CC: Zain David DO PAGE 1 Signed Report Name: VERÓNICA NUNN [place] : 1985 Age/S: 36 / M [address] Unit #: [id number] Loc: [place] [address] Phys: Zain David DO Acct: [id number] Dis Date: Status: REG ER PHONE #: [phone] Exam Date: 02/2022 1416 FAX #: Reason: chest pain EXAMS: CPT: [id number] XR CHEST 1 V 42915 Fluoro Time: DAP (Gy m2): Air Kerma (mGy): (Continued) Technologist: Vladislav Moreno, RT(R)(CT) Trnscb Date/Time: 01/08/2022 (1424) [id number] Orig Print D/T: S: 01/08/2022 (2207) PAGE 2 [facility]igned [facility] 2021-12-15 10:55:52 Test Item Value Reference Range Interpretation Comments Glucose POC (test code = 10577054) 79 mg/dL 74-106 Lab Interpretation (test code = Normal 00998-5) [facility] [id number] 10:55:52 Test Item Value Reference Range Interpretation Comments Glucose POC (test code = 01997436) 79 mg/dL 74-106 Lab Interpretation (test code = Normal 74111-6) [facility] ripaqp9150-84-45 10:55:52 Test Item Value Reference Range Interpretation Comments Glucose POC (test code = 44853646) 79 mg/dL 74-106 Lab Interpretation (test code = Normal 51365-1) [facility] [id number] 10:55:52 Test Item Value Reference Range Interpretation Comments Glucose POC (test code = 60524610) 79 mg/dL 74-106 Lab Interpretation (test code = Normal 79762-3) [facility] [id number] 10:55:52 Test Item Value Reference Range Interpretation Comments Glucose POC (test code = 52985180) 79 mg/dL 74-106 Lab Interpretation (test code = Normal 19856-7) [facility] [id number] 10:55:52 Test Item Value Reference Range Interpretation Comments Glucose POC (test code = 15122814) 79 mg/dL 74-106 Lab Interpretation (test code = Normal 15970-4) [place] [address] Lead [id number] 14:05:1912 LEAD EKG FOR [facility] Test Date: 4493-05-72Hiz Name: VERÓNICA CLARK [id number] Room: Gender: M Lab Specialist: SHIOB: 1985 Requested By: MSIAEL VELÁZQUEZ EOrder Number: [id number] Naya MD: Rosa Santa MeasurementsIntervals Russell Rate: 90 P: 73PR:142 QRS: 90QRSD: 104 T: 69QT: 345 QTc: [address] ELEVATION [0.05+ mV ST ELEVATION]Electronically Signed On 12-14-2021 14:05:45 CDT by RosaRICS SoftwareBeaumont HospitalKamcord Wpvpmb92 Lead [id number] 14:05:1912 LEAD EKG FOR [facility] Test Date: 6964-22-06Omr Name: VERÓNICA CLARK Department: 5CMSPatient ID: [id number] Room: Gender: M Lab Specialist: ANNIEDOB: 1985 Requested By: MISAEL HUIZARrder Number: [id number] Reading MD: Rosa Santa MeasurementsIntervals Russell Rate: 90 P: 73PR:142 QRS: 90QRSD: 104 T: 69QT: 345 QTc: 393 Interpretive StatementsSIN[address] RHYTHMNONSPECIFIC ST ELEVATION [0.05+ mV ST ELEVATION]Electronically Signed On 12-14-2021 14:05:45 CDT by NisticaHazard [facility] Regional Medical CenterYork Telecom12 Lead [id number] 14:05:1912 LEAD EKG FOR [facility] Test Date: 6219-45-53Zoa Name: VERÓNICA CLARK Department: 5CMSPatient ID: [id number] Room: Gender: M Lab Specialist: ANNIEDOB: 1985 Requested By: MISAEL Brito Number: [id number] Reading MD: Rosa Santa MeasurementsIntervals Russell Rate: 90 P: 73PR:142 QRS: 90QRSD: 104 T: 69QT: 345 QTc: 393 Interpretive StatementsS[address] R[address] ELEVATION [0.05+ mV ST ELEVATION]Electronically Signed On 12-14-2021 14:05:45 CDT by Rosa [facility] CenterKamcord Aixqdm60 Lead [id number] 14:05:1912 LEAD EKG FOR [facility] Test Date: 6886-33-34Glw Name: VERÓNICA CLARK Department: 5CMSPatient ID: [id number] Room: Gender: M Lab Specialist: ANNIEDOB: 1985 Requested By: MISAEL HUIZARrder Number: [id number] Reading MD: Rosa Santa MeasurementsIntervals Russell Rate: 90 P: 73PR:142 QRS: 90QRSD: 104 T: 69QT: 345 QTc: 393 Interpretive StatementsS[address] RHY[address] ELEVATION [0.05+ mV ST ELEVATION]Electronically Signed On 12-14-2021 14:05:45 CDT by Biond[employer]12 Lead [id number] 14:05:1912 LEAD EKG FOR [facility] Test Date: 4510-66-52Qes Name: VERÓNICA CLARK Department: MSPatient ID: [id number] Room: Gender: Lab Specialist: ANNIEDOB: 1985 Requested By: MISAEL VELÁZQUEZ EOrder Number: [id number] Reading MD: Rosa Santa MeasurementsIntervals Russell Rate: 90 P: 73PR:142 QRS: 90QRSD: 104 T: 69QT: 345 QTc: 393 Interpretive StatementsSIN[address] RHY[address] ELEVATION [0.05+ mV ST ELEVATION]Electronically Signed On 12-14-2021 14:05:45 CDT by BiondVax12 Lead [id number] 14:05:1912 LEAD EKG FOR [facility] Test Date: 9887-74-30Abw Name: VERÓNICA CLARK Department: 5CMSPatient ID: [id number] Room: Gender: Lab Specialist: ANNIEDOB: 1985 Requested By: MISAEL HUIZARrder Number: [id number] Reading MD: Rosa Santa MeasurementsIntervals Russell Rate: 90 P: 73PR:142 QRS: 90QRSD: 104 T: 69QT: 345 QTc: 393 [address] Stat[address] ELEVATION [0.05+ mV ST ELEVATION]Electronically Signed On 12-14-2021 14:05:45 CDT by BiondVaxNCV 1+2 Ab+HIV1 p24 Ag SerPl Ql [id number] 11:54:50 Test Item Value Reference Range Interpretation Comments HIV 1+2 Ab+HIV1 p24 Ag SerPl Ql IA NEGATIVE Negative (test code = 78464-3) Coronavirus, CoVID-19, [id number] 02:25:42 Test Item Value Reference Interpretation Comments Range COVID-19 Not Detected Not Detected INTERPRETATION: (SARS-COV-2) (test No detect able code = 95536-7) levels of SARS-CoV-2 Coronavirus (COVID-19) were present [...] its performance characteristics were verified by the [facility] molecular diagnostics laboratory and is authorized for clinical diagnostic use. This laboratory is certified under the Clinical Laboratory Improvement Amendments (CLIA) as qualified to perform high complexity clinical laboratory testing. Lab Interpretation Normal (test code = 60536-9) [facility] Hospital[facility], CoVID-19, [id number] 02:25:42 Test Item Value Reference Interpretation Comments Range COVID-19 Not Detected Not Detected INTERPRETATION: (SARS-COV-2) (test No detect able code = 50311-8) levels of SARS-CoV-2 Coronavirus (COVID-19) were present [...] its performance characteristics were verified by the [facility] molecular diagnostics laboratory and is authorized for clinical diagnostic use. This laboratory is certified under the Clinical Laboratory Improvement Amendments (CLIA) as qualified to perform high complexity clinical laboratory testing. Lab Interpretation Normal (test code = 87369-0) Tal[facility] Shepherdronavirus, CoVID-19, [id number] 02:25:42 Test Item Value Reference Interpretation Comments Range COVID-19 Not Detected Not Detected INTERPRETATION: (SARS-COV-2) (test No detect able code = 20214-3) levels of SARS-CoV-2 Coronavirus (COVID-19) were present [...] its performance characteristics were verified by the [facility] molecular diagnostics laboratory and is authorized for clinical diagnostic use. This laboratory is certified under the Clinical Laboratory Improvement Amendments (CLIA) as qualified to perform high complexity clinical laboratory testing. Lab Interpretation Normal (test code = 77161-3) [facility] Shepherdronavirus, CoVID-19, [id number] 02:25:42 Test Item Value Reference Interpretation Comments Range COVID-19 Not Detected Not Detected INTERPRETATION: (SARS-COV-2) (test No detect able code = 60810-8) levels of SARS-CoV-2 Coronavirus (COVID-19) were present [...] its performance characteristics were verified by the [facility] molecular diagnostics laboratory and is authorized for clinical diagnostic use. This laboratory is certified under the Clinical Laboratory Improvement Amendments (CLIA) as qualified to perform high complexity clinical laboratory testing. Lab Interpretation Normal (test code = 04371-4) [facility] HospitalCor[facility]avirus, CoVID-19, [id number] 02:25:42 Test Item Value Reference Interpretation Comments Range COVID-19 Not Detected Not Detected INTERPRETATION: (SARS-COV-2) (test No detect able code = 10647-6) levels of SARS-CoV-2 Coronavirus (COVID-19) were present [...] its performance characteristics were verified by the [facility] molecular diagnostics laboratory and is authorized for clinical diagnostic use. This laboratory is certified under the Clinical Laboratory Improvement Amendments (CLIA) as qualified to perform high complexity clinical laboratory testing. Lab Interpretation Normal (test code = 49060-8) [facility] HospitalCor[facility]avirus, CoVID-19, [id number] 02:25:42 Test Item Value Reference Interpretation Comments Range COVID-19 Not Detected Not Detected INTERPRETATION: (SARS-COV-2) (test No detect able code = 67448-6) levels of SARS-CoV-2 Coronavirus (COVID-19) were present [...] its performance characteristics were verified by the [facility] molecular diagnostics laboratory and is authorized for clinical diagnostic use. This laboratory is certified under the Clinical Laboratory Improvement Amendments (CLIA) as qualified to perform high complexity clinical laboratory testing. Lab Interpretation Normal (test code = 34343-1) [facility] HospitalWtxbjlVFBS-OvO-0 RNA Resp Ql YOSHI+qnnml3994-79-56 02:25:42 Test Item Value Reference Range Interpretation Comments Hospitalized? (test No code = 65143-1) ICU? (test code = No 59834-1) Symptomatic as defined No by CDC? (test code = 65289-3) Employed in No Healthcare? (test code = 90950-3) Resident in a No congregate care setting (including nursing homes, residential care for people with intellectual and developmental disabilities, psychiatric treatment facilities, group homes, board and care homes, homeless retirement, foster care or other): (test code = 71658-8) SARS-CoV-2 RNA Resp Ql NOT DETECTED Not Detected INTER PRETATION: No YOSHI+probe (test code = detec table levels 72957-1) of SARS-CoV-2 Coronavirus (COVID-19) were present in [...] its performance characteristics were verified by the [facility] molecular diagnostics laboratory and is authorized for clinical diagnostic use. This laboratory is certified under the Clinical Laboratory Improvement Amendments (CLIA) as qualified to perform high complexity clinical laboratory testing.POCT BMP POC docked device 2021-12-02 20:33:07 Test Item Value Reference Range Interpretation Comments Sodium POC (test code = 134 mmol/L 136-145 L 51771757) Potassium POC (test code 4.2 mmol/L 3.5-5.1 = 93718722) Chloride POC (test code 103 mmol/L 98-107 = 42940120) TCO2 POC (test code = 28 mmol/L 21-32 Physic alden Notified 18846474) Urea Nitrogen POC (test 12 mg/dL 7-18 code = 68959745) Glucose POC (test code = 76 mg/dL 74-106 38067973) Hemoglobin POC (test 7.1 g/dL 12-16 L code = 93101588) Hematocrit POC (test 21.0 % 37.0-47.0 L code = 27917847) Lab Interpretation (test Abnormal code = 08642-1) [facility] POC docked enfjyh4109-67-52 20:33:07 Test Item Value Reference Range Interpretation Comments Sodium POC (test code = 134 mmol/L 136-145 L 01979160) Potassium POC (test code 4.2 mmol/L 3.5-5.1 = 62766720) Chloride POC (test code 103 mmol/L 98-107 = 52452003) TCO2 POC (test code = 28 mmol/L -32 Physic alden Notified 41232548) Urea Nitrogen POC (test 12 mg/dL 7-18 code = 97320250) Glucose POC (test code = 76 mg/dL 74-106 68528814) Hemoglobin POC (test 7.1 g/dL 12-16 L code = 15657997) Hematocrit POC (test 21.0 % 37.0-47.0 L code = 63220099) Lab Interpretation (test Abnormal code = 76902-5) [facility] POC docked [id number] 20:33:07 Test Item Value Reference Range Interpretation Comments Sodium POC (test code = 134 mmol/L 136-145 L 87214662) Potassium POC (test code 4.2 mmol/L 3.5-5.1 = 63380636) Chloride POC (test code 103 mmol/L 98-107 = 25978370) TCO2 POC (test code = 28 mmol/L 21-32 Physic alden Notified 83450382) Urea Nitrogen POC (test 12 mg/dL 7-18 code = 14566075) Glucose POC (test code = 76 mg/dL 74-106 33573771) Hemoglobin POC (test 7.1 g/dL 12-16 L code = 53120888) Hematocrit POC (test 21.0 % 37.0-47.0 L code = 75801762) Lab Interpretation (test Abnormal code = 63380-9) [facility] POC docked [id number] 20:33:07 Test Item Value Reference Range Interpretation Comments Sodium POC (test code = 134 mmol/L 136-145 L 28252419) Potassium POC (test code 4.2 mmol/L 3.5-5.1 = 09284164) Chloride POC (test code 103 mmol/L 98-107 = 66508099) TCO2 POC (test code = 28 mmol/L 21-32 Physic alden Notified 62257082) Urea Nitrogen POC (test 12 mg/dL 7-18 code = 89816786) Glucose POC (test code = 76 mg/dL 74-106 86028568) Hemoglobin POC (test 7.1 g/dL 12-16 L code = 71212890) Hematocrit POC (test 21.0 % 37.0-47.0 L code = 31733155) Lab Interpretation (test Abnormal code = 91185-0) [facility] POC docked alprwn0705-16-23 20:33:07 Test Item Value Reference Range Interpretation Comments Sodium POC (test code = 134 mmol/L 136-145 L 13469304) Potassium POC (test code 4.2 mmol/L 3.5-5.1 = 09336786) Chloride POC (test code 103 mmol/L 98-107 = 89568126) TCO2 POC (test code = 28 mmol/L 21-32 Physic alden Notified 90545340) Urea Nitrogen POC (test 12 mg/dL 7-18 code = 56852761) Glucose POC (test code = 76 mg/dL 74-106 58194784) Hemoglobin POC (test 7.1 g/dL 12-16 L code = 07116566) Hematocrit POC (test 21.0 % 37.0-47.0 L code = 25570942) Lab Interpretation (test Abnormal code = 90220-4) [facility] POC docked mvkepf0403-95-80 20:33:07 Test Item Value Reference Range Interpretation Comments Sodium POC (test code = 134 mmol/L 136-145 L 34155189) Potassium POC (test code 4.2 mmol/L 3.5-5.1 = 22325303) Chloride POC (test code 103 mmol/L 98-107 = 93191597) TCO2 POC (test code = 28 mmol/L 21-32 Physic alden Notified 23970499) Urea Nitrogen POC (test 12 mg/dL 7-18 code = 54071946) Glucose POC (test code = 76 mg/dL 74-106 24503242) Hemoglobin POC (test 7.1 g/dL 12-16 L code = 61443327) Hematocrit POC (test 21.0 % 37.0-47.0 L code = 95609269) Lab Interpretation (test Abnormal code = 52467-4) [facility] CREATININE POC docked pdadal2698-86-04 20:32:51 Test Item Value Reference Range Interpretation Comments Creatinine POC (test 0.5 mg/dL 0.6-1.3 L Physici an Notified code = 95954838) eGFR If non- Am >120 See_Comment [Aut omated message] (test code = 77104441) The s ystem which generated this result transmit gregory reference range : >=90 mL/min/1.7 3 m2. The reference r sravanthi was not used to interpret this result as normal/abnormal . eGFR If Am (test >120 See_Comment [A utomated message] code = 23132304) The system which generated this result transmit gregory reference range : >=90 mL/min/1.7 3 m2. The reference r sravanthi was not used to interpret this result as normal/abnormal . Lab Interpretation (test Abnormal code = 84638-9) [facility] CREATININE POC docked [id number] 20:32:51 Test Item Value Reference Range Interpretation Comments Creatinine POC (test 0.5 mg/dL 0.6-1.3 L Physici an Notified code = 87146278) eGFR If non- Am >120 See_Comment [Aut omated message] (test code = 24716241) The s ystem which generated this result transmit gregory reference range : >=90 mL/min/1.7 3 m2. The reference r sravanthi was not used to interpret this result as normal/abnormal . eGFR If Am (test >120 See_Comment [A utomated message] code = 86168423) The system which generated this result transmit gregory reference range : >=90 mL/min/1.7 3 m2. The reference r sravanthi was not used to interpret this result as normal/abnormal . Lab Interpretation (test Abnormal code = 08538-0) [facility] CREATININE POC docked qbdnbc9502-11-42 20:32:51 Test Item Value Reference Range Interpretation Comments Creatinine POC (test 0.5 mg/dL 0.6-1.3 L Physici an Notified code = 64618071) eGFR If non- Am >120 See_Comment [Aut omated message] (test code = 86829240) The s ystem which generated this result transmit gregory reference range : >=90 mL/min/1.7 3 m2. The reference r sravanthi was not used to interpret this result as normal/abnormal . eGFR If Am (test >120 See_Comment [A utomated message] code = 84394764) The system which generated this result transmit gregory reference range : >=90 mL/min/1.7 3 m2. The reference r sravanthi was not used to interpret this result as normal/abnormal . Lab Interpretation (test Abnormal code = 42205-3) [facility] CREATININE POC docked [id number] 20:32:51 Test Item Value Reference Range Interpretation Comments Creatinine POC (test 0.5 mg/dL 0.6-1.3 L Physici an Notified code = 81134931) eGFR If non- Am >120 See_Comment [Aut omated message] (test code = 53967248) The s ystem which generated this result transmit gregory reference range : >=90 mL/min/1.7 3 m2. The reference r sravanthi was not used to interpret this result as normal/abnormal . eGFR If Am (test >120 See_Comment [A utomated message] code = 40938994) The system which generated this result transmit gregory reference range : >=90 mL/min/1.7 3 m2. The reference r sravanthi was not used to interpret this result as normal/abnormal . Lab Interpretation (test Abnormal code = 33093-6) [facility] CREATININE POC docked hmgmdc5714-14-32 20:32:51 Test Item Value Reference Range Interpretation Comments Creatinine POC (test 0.5 mg/dL 0.6-1.3 L Physici an Notified code = 90643070) eGFR If non- Am >120 See_Comment [Aut omated message] (test code = 53672600) The s ystem which generated this result transmit gregory reference range : >=90 mL/min/1.7 3 m2. The reference r sravanthi was not used to interpret this result as normal/abnormal . eGFR If Am (test >120 See_Comment [A utomated message] code = 05938360) The system which generated this result transmit gregory reference range : >=90 mL/min/1.7 3 m2. The reference r sravanthi was not used to interpret this result as normal/abnormal . Lab Interpretation (test Abnormal code = 06514-3) [facility] CREATININE POC docked zehjmt1298-00-06 20:32:51 Test Item Value Reference Range Interpretation Comments Creatinine POC (test 0.5 mg/dL 0.6-1.3 L Physici an Notified code = 54127749) eGFR If non- Am >120 See_Comment [Aut omated message] (test code = 58713098) The s ystem which generated this result transmit gregory reference range : >=90 mL/min/1.7 3 m2. The reference r sravanthi was not used to interpret this result as normal/abnormal . eGFR If Am (test >120 See_Comment [A utomated message] code = 64795129) The system which generated this result transmit gregory reference range : >=90 mL/min/1.7 3 m2. The reference r sravanthi was not used to interpret this result as normal/abnormal . Lab Interpretation (test Abnormal code = 13219-6) [facility]DWT9420-34-22 20:34:31 Test Item Value Reference Interpretation Comments [...] valves. Lab Interpretation Abnormal (test code = 01904-6) [facility] 20:34:31 Test Item Value Reference Interpretation Comments [...] valves. Lab Interpretation Abnormal (test code = 06573-3) [facility]ZEA7819-69-97 20:34:31 Test Item Value Reference Interpretation Comments [...] valves. Lab Interpretation Abnormal (test code = 03085-6) [facility]XFF4363-93-63 20:34:31 Test Item Value Reference Interpretation Comments [...] valves. Lab Interpretation Abnormal (test code = 13962-8) [facility]SYN7867-71-45 20:34:31 Test Item Value Reference Interpretation Comments [...] valves. Lab Interpretation Abnormal (test code = 35639-8) [facility]SHN8168-70-96 20:34:31 Test Item Value Reference Interpretation Comments [...] valves. Lab Interpretation Abnormal (test code = 01051-4) [facility] CenterPROT[facility]/WIY3888-78-51 20:34:31 Test Item Value Reference Range Interpretation Comments PROTIME (BEAKER) 12.2 seconds 9.3-12.0 H Final Infor mation (test code = 759) (Auto Outp ut) INR (BEAKER) (test 1.11 See_Comment Final Inf ormation code = 370) (Auto Output) [Automated mess age] The system Qio generated this result transmitted ref erence range: <=5.90. The reference range was not used to int erpret this result as normal/abnormal . RECOMMENDED COUMADIN/WARFARIN INR THERAPY RANGESSTANDARD DOSE: 2.0 - 3.0 Includes: PROPHYLAXIS for venous thrombosis, systemic embolization; TREATMENT for venous thrombosis and/or pulmonary embolus.HIGH RISK: Target INR is 2.5-3.5 for patients with mechanical heart valves.CT, KRMSKDH7714-12-80 20:32:00Unlisted Reason for Exam - Click Yes and Enter Reason Below->NoIs this for enterography?->NoWill this procedure require oral contrast?->No [facility] : 1985 Sex: MFINAL REPORT TECHNIQUE: CT of the abdomen and pelvis WITH intravenous contrast and WITHOUT oral contrast. Dose modulation, iterative reconstruction, and/or weight-based adjustment of the mA/kV was utilized to reduce the radiation dose to as low as reasonably achievable. INDICATION: Abdominal pain. COMPARISON: None. FINDINGS: LOWER THORAX: Unremarkable. HEPATOBILIARY: [...] obstruction.. Large volume stool in the colon. Normalappendix. BONES AND SOFT TISSUES: Degenerative changes in the spine. No suspicious osseous abnormality.. IMPRESSION:Large volume stool in the colon. Correlate for history of constipation. Otherwise no acute intra-abdominal or intrapelvic abnormality.. Signed: [facility] Verified Date/Time: 07/30/2021 20:32:18 Reading Location: [facility] Trans[facility] Reading Room Electronicallysigned by: MARY KHOURY MD on 07/30/2021 08:32 PMBasic metabolic panel (Na, K+, Cl, CO2, Glu, Ca, BUN, Cr)2021-07-30 20:00:22 Test Item Value Reference Range Interpretation Comments Sodium (test code = 135 meq/L 488-174 8673-2) Potassium (test code = 4.2 meq/L 3.6-5.5 2823-3) Chloride (test code = 103 meq/L 98-106 2074-0) CO2 (test code = 24 meq/L -2028-03) BUN (test code = 8 mg/dL 10-26 L 3094-0) Creatinine (test code 0.75 mg/dL 0.50-1.20 = 2160-0) Glucose (test code = 77 mg/dL 70-110 2345-7) Calcium (test code = 9.1 mg/dL 8.5-10.5 38607-3) EGFR (test code = 118 mL/min/1.73 [place] [address]-2) NOT ACCURATE CREATININE CLEARANCE IN PREDICTING GLOMERULAR FILTRATION RATE . ESTIMATED GFR I S NOT APPLICABLE FOR DIALYSIS PATIENTS. BRISA (test code = BRISA) Diamond Grader ID - [id number] r ID - [id number] r ID - [id number] r ID - [id number] r ID - [id number] r ID - [id number] r ID - [id number] r ID - [id number] r ID - [id number] r ID - [id number] r ID - [id number] r ID - [id number] Lab Interpretation Abnormal (test code = 26001-0) [facility], [facility]+, Cl, CO2, Glu, Ca, BUN, Cr)2021-07-30 20:00:22 Test Item Value Reference Range Interpretation Comments Sodium (test code = 135 meq/L 258-650 9594-2) Potassium (test code = 4.2 meq/L 3.6-5.5 2823-3) Chloride (test code = 103 meq/L 98-106 2074-0) CO2 (test code = 24 meq/L -2028-03) BUN (test code = 8 mg/dL 10-26 L 3094-0) Creatinine (test code 0.75 mg/dL 0.50-1.20 = 2160-0) Glucose (test code = 77 mg/dL 70-110 2345-7) Calcium (test code = 9.1 mg/dL 8.5-10.5 52896-8) EGFR (test code = 118 mL/min/1.73 [place] [address]-9) NOT ACCURATE CREATININE CLEARANCE IN PREDICTING GLOMERULAR FILTRATION RATE . ESTIMATED GFR I S NOT APPLICABLE FOR DIALYSIS PATIENTS. BRISA (test code = BRISA) Diamond Grader ID - [id number] r ID - [id number] r ID - [id number] r ID - [id number] r ID - [id number] r ID - [id number] r ID - [id number] r ID - [id number] r ID - [id number] r ID - [id number] r ID - [id number] r ID - [id number] Lab Interpretation Abnormal (test code = 69422-1) [facility] (Na, K+, Cl, CO2, Glu, Ca, BUN, Cr)2021-07-30 20:00:22 Test Item Value Reference Range Interpretation Comments Sodium (test code = 135 meq/L 137-517 5145-2) Potassium (test code = 4.2 meq/L 3.6-5.5 2823-3) Chloride (test code = 103 meq/L 98-106 2075-0) CO2 (test code = 24 meq/L 20-29 2028-9) BUN (test code = 8 mg/dL 10-26 L 3094-0) Creatinine (test code 0.75 mg/dL 0.50-1.20 = 2160-0) Glucose (test code = 77 mg/dL 70-110 2345-7) Calcium (test code = 9.1 mg/dL 8.5-10.5 06002-7) EGFR (test code = 118 mL/min/1.73 [place] [address]-4) NOT ACCURATE CREATININE CLEARANCE IN PREDICTING GLOMERULAR FILTRATION RATE . ESTIMATED GFR I S NOT APPLICABLE FOR DIALYSIS PATIENTS. BRISA (test code = BRISA) Diamond Grader ID - [id number] r ID - [id number] r ID - [id number] r ID - [id number] r ID - [id number] r ID - [id number] r ID - [id number] r ID - [id number] r ID - [id number] r ID - [id number] r ID - [id number] r ID - [id number] Lab Interpretation Abnormal (test code = 28146-6) [facility] metabolic panel (Na, K+, Cl, CO2, Glu, Ca, BUN, Cr)2021-07-30 20:00:22 Test Item Value Reference Range Interpretation Comments Sodium (test code = 135 meq/L 429-756 5155-2) Potassium (test code = 4.2 meq/L 3.6-5.5 2823-3) Chloride (test code = 103 meq/L 98-106 2075-0) CO2 (test code = 24 meq/L 20-29 8-9) BUN (test code = 8 mg/dL 10-26 L 3094-0) Creatinine (test code 0.75 mg/dL 0.50-1.20 = 2160-0) Glucose (test code = 77 mg/dL 70-110 2345-7) Calcium (test code = 9.1 mg/dL 8.5-10.5 50178-3) EGFR (test code = 118 mL/min/1.73 sq [place] [address]-3) NOT ACCURATE CREATININE CLEARANCE IN PREDICTING GLOMERULAR FILTRATION RATE . ESTIMATED GFR I S NOT APPLICABLE FOR DIALYSIS PATIENTS. BRISA (test code = BRISA) Diamond Grader ID - [id number] r ID - [id number] r ID - [id number] r ID - [id number] r ID - [id number] r ID - [id number] r ID - [id number] r ID - [id number] r ID - [id number] r ID - [id number] r ID - [id number] r ID - [id number] Lab Interpretation Abnormal (test code = 27160-6) [facility] metabolic panel (Na, K+, Cl, CO2, Glu, Ca, BUN, Cr)2021-07-30 20:00:22 Test Item Value Reference Range Interpretation Comments Sodium (test code = 135 meq/L 125-765 3925-2) Potassium (test code = 4.2 meq/L 3.6-5.5 2823-3) Chloride (test code = 103 meq/L 98-106 2075-0) CO2 (test code = 24 meq/L -2028-03) BUN (test code = 8 mg/dL 10-26 L 3094-0) Creatinine (test code 0.75 mg/dL 0.50-1.20 = 2160-0) Glucose (test code = 77 mg/dL 70-110 2345-7) Calcium (test code = 9.1 mg/dL 8.5-10.5 07863-4) EGFR (test code = 118 mL/min/1.73 [place] [address]-9) NOT ACCURATE CREATININE CLEARANCE IN PREDICTING GLOMERULAR FILTRATION RATE . ESTIMATED GFR I S NOT APPLICABLE FOR DIALYSIS PATIENTS. BRISA (test code = BRISA) Diamond Grader ID - [id number] r ID - [id number] r ID - [id number] r ID - [id number] r ID - [id number] r ID - [id number] r ID - [id number] r ID - [id number] r ID - [id number] r ID - [id number] r ID - [id number] r ID - [id number] Lab Interpretation Abnormal (test code = 36155-3) [facility] (Na, K+, Cl, CO2, Glu, Ca, BUN, Cr)2021-07-30 20:00:22 Test Item Value Reference Range Interpretation Comments Sodium (test code = 135 meq/L 259-867 7916-2) Potassium (test code = 4.2 meq/L 3.6-5.5 2823-3) Chloride (test code = 103 meq/L 98-106 2074-0) CO2 (test code = 24 meq/L -29 2028-03) BUN (test code = 8 mg/dL 10-26 L 3094-0) Creatinine (test code 0.75 mg/dL 0.50-1.20 = 2160-0) Glucose (test code = 77 mg/dL 70-110 2345-7) Calcium (test code = 9.1 mg/dL 8.5-10.5 41672-3) EGFR (test code = 118 mL/min/1.73 [place] [address]-9) NOT ACCURATE CREATININE CLEARANCE IN PREDICTING GLOMERULAR FILTRATION RATE . ESTIMATED GFR I S NOT APPLICABLE FOR DIALYSIS PATIENTS. BRISA (test code = BRISA) Diamond Grader ID - [id number] r ID - [id number] r ID - [id number] r ID - [id number] r ID - [id number] r ID - [id number] r ID - [id number] r ID - [id number] r ID - [id number] r ID - [id number] r ID - [id number] r ID - [id number] Lab Interpretation Abnormal (test code = 54221-2) [facility] [id number] 20:00:22 Test Item Value Reference Range Interpretation [...] S NOT APPLICABLE FOR DIALYSIS PATIEN TS. 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 The refe rence range was not u sed to interpret this result as normal/abnor mal. RBC (test code = 789-8) 3.93 See_Comment L [Au tomated message] The system [employer] generated this result transmitted ref erence range: 4.20 - 5 .80 M/L. The refe rence range was not u sed to interpret this result as normal/abnor mal. MCHC (test code = 786-4) 34.2 See_Comment L [A utomated message] The system [employer] generated this result transmitted ref erence range: [...] See_Comment [Aut omated message] 777-3) The system [employer] generated this result transmitted ref erence range: 150 - 43 0 K/CU MM. The referen ce range was not u sed to interpret this result as normal/abnor mal. MPV (test code = 8.7 fL 6.0-11.5 99668-4) nRBC (test code = 413) 0 See_Comment [Aut omated message] The system [employer] generated this result transmitted ref erence range: [...] See_Comment [Aut omated message] 670) The system [employer] generated this result transmitted ref erence range: 1.80 - 8 .00 K/L. The refe rence range was not u sed to interpret this result as normal/abnor mal. # Lymphs (test code = 2.15 See_Comment [Auto mated message] 414) The system [employer] generated this result transmitted ref erence range: 1.48 - 4 .50 K/L. The refe rence range was not u sed to interpret this result as normal/abnor mal. # Monos (test code = 0.49 See_Comment [Autom ated message] 415) The system [employer] generated this result transmitted ref erence range: 0.00 - 1 .30 K/L. The refe rence range was not u sed to interpret this result as normal/abnor mal. # Eos (test code = 416) 0.51 See_Comment H [Au tomated message] The system [employer] generated this result transmitted ref erence range: 0.00 - 0 .50 K/L. The refe rence range was not u sed to interpret this result as normal/abnor mal. # Baso (test code = 417) 0.05 See_Comment [A utomated message] The system [employer] generated this result transmitted ref erence range: 0.00 - 0 .20 K/L. The refe rence range was not u sed to interpret this result as normal/abnor mal. Immature 0 % 0-0 Granulocytes-Relative (test code = 2801) Lab Interpretation (test Abnormal code = 14355-0) [facility] with platelet count + automated [id number] 19:43:00 Test Item Value Reference Range Interpretation Comments WBC (test code = 6690-2) 6.2 See_Comment [A utomated message] The system [employer] generated this result transmitted ref erence range: 4.0 - 10 .0 K/L. The refe rence range was not u sed to interpret this result as normal/abnor mal. RBC (test code = 789-8) 3.93 See_Comment L [Au tomated message] The system [employer] generated this result transmitted ref erence range: 4.20 - 5 .80 M/L. The refe rence range was not u sed to interpret this result as normal/abnor mal. MCHC (test code = 786-4) 34.2 See_Comment L [A utomated message] The system [employer] generated this result transmitted ref erence range: [...] See_Comment [Aut omated message] 777-3) The system [employer] generated this result transmitted ref erence range: 150 - 43 0 K/CU MM. The referen ce range was not u sed to interpret this result as normal/abnor mal. MPV (test code = 8.7 fL 6.0-11.5 64947-6) nRBC (test code = 413) 0 See_Comment [Aut omated message] The system [employer] generated this result transmitted ref erence range: [...] See_Comment [Aut omated message] 670) The system [employer] generated this result transmitted ref erence range: 1.80 - 8 .00 K/L. The refe rence range was not u sed to interpret this result as normal/abnor mal. # Lymphs (test code = 2.15 See_Comment [Auto mated message] 414) The system [employer] generated this result transmitted ref erence range: 1.48 - 4 .50 K/L. The refe rence range was not u sed to interpret this result as normal/abnor mal. # Monos (test code = 0.49 See_Comment [Autom ated message] 415) The system [employer] generated this result transmitted ref erence range: 0.00 - 1 .30 K/L. The refe rence range was not u sed to interpret this result as normal/abnor mal. # Eos (test code = 416) 0.51 See_Comment H [Au tomated message] The system [employer] generated this result transmitted ref erence range: 0.00 - 0 .50 K/L. The refe rence range was not u sed to interpret this result as normal/abnor mal. # Baso (test code = 417) 0.05 See_Comment [A utomated message] The system [employer] generated this result transmitted ref erence range: 0.00 - 0 .20 K/L. The refe rence range was not u sed to interpret this result as normal/abnor mal. Immature 0 % 0-0 Granulocytes-Relative (test code = 2801) Lab Interpretation (test Abnormal code = 68811-2) [facility] with platelet count + automated [id number] 19:43:00 Test Item Value Reference Range Interpretation Comments WBC (test code = 6690-2) 6.2 See_Comment [A utomated message] The system [employer] generated this result transmitted ref erence range: 4.0 - 10 .0 K/L. The refe rence range was not u sed to interpret this result as normal/abnor mal. RBC (test code = 789-8) 3.93 See_Comment L [Au tomated message] The system [employer] generated this result transmitted ref erence range: 4.20 - 5 .80 M/L. The refe rence range was not u sed to interpret this result as normal/abnor mal. MCHC (test code = 786-4) 34.2 See_Comment L [A utomated message] The system [employer] generated this result transmitted ref erence range: [...] See_Comment [Aut omated message] 777-3) The system [employer] generated this result transmitted ref erence range: 150 - 43 0 K/CU MM. The referen ce range was not u sed to interpret this result as normal/abnor mal. MPV (test code = 8.7 fL 6.0-11.5 00388-8) nRBC (test code = 413) 0 See_Comment [Aut omated message] The system [employer] generated this result transmitted ref erence range: [...] See_Comment [Aut omated message] 670) The system [employer] generated this result transmitted ref erence range: 1.80 - 8 .00 K/L. The refe rence range was not u sed to interpret this result as normal/abnor mal. # Lymphs (test code = 2.15 See_Comment [Auto mated message] 414) The system [employer] generated this result transmitted ref erence range: 1.48 - 4 .50 K/L. The refe rence range was not u sed to interpret this result as normal/abnor mal. # Monos (test code = 0.49 See_Comment [Autom ated message] 415) The system [employer] generated this result transmitted ref erence range: 0.00 - 1 .30 K/L. The refe rence range was not u sed to interpret this result as normal/abnor mal. # Eos (test code = 416) 0.51 See_Comment H [Au tomated message] The system [employer] generated this result transmitted ref erence range: 0.00 - 0 .50 K/L. The refe rence range was not u sed to interpret this result as normal/abnor mal. # Baso (test code = 417) 0.05 See_Comment [A utomated message] The system [employer] generated this result transmitted ref erence range: 0.00 - 0 .20 K/L. The refe rence range was not u sed to interpret this result as normal/abnor mal. Immature 0 % 0-0 Granulocytes-Relative (test code = 2801) Lab Interpretation (test Abnormal code = 92186-1) [facility] with platelet count + automated [id number] 19:43:00 Test Item Value Reference Range Interpretation Comments WBC (test code = 6690-2) 6.2 See_Comment [A utomated message] The system [employer] generated this result transmitted ref erence range: 4.0 - 10 .0 K/L. The refe rence range was not u sed to interpret this result as normal/abnor mal. RBC (test code = 789-8) 3.93 See_Comment L [Au tomated message] The system [employer] generated this result transmitted ref erence range: 4.20 - 5 .80 M/L. The refe rence range was not u sed to interpret this result as normal/abnor mal. MCHC (test code = 786-4) 34.2 See_Comment L [A utomated message] The system [employer] generated this result transmitted ref erence range: [...] See_Comment [Aut omated message] 777-3) The system [employer] generated this result transmitted ref erence range: 150 - 43 0 K/CU MM. The referen ce range was not u sed to interpret this result as normal/abnor mal. MPV (test code = 8.7 fL 6.0-11.5 31128-1) nRBC (test code = 413) 0 See_Comment [Aut omated message] The system [employer] generated this result transmitted ref erence range: [...] See_Comment [Aut omated message] 670) The system [employer] generated this result transmitted ref erence range: 1.80 - 8 .00 K/L. The refe rence range was not u sed to interpret this result as normal/abnor mal. # Lymphs (test code = 2.15 See_Comment [Auto mated message] 414) The system [employer] generated this result transmitted ref erence range: 1.48 - 4 .50 K/L. The refe rence range was not u sed to interpret this result as normal/abnor mal. # Monos (test code = 0.49 See_Comment [Autom ated message] 415) The system [employer] generated this result transmitted ref erence range: 0.00 - 1 .30 K/L. The refe rence range was not u sed to interpret this result as normal/abnor mal. # Eos (test code = 416) 0.51 See_Comment H [Au tomated message] The system [employer] generated this result transmitted ref erence range: 0.00 - 0 .50 K/L. The refe rence range was not u sed to interpret this result as normal/abnor mal. # Baso (test code = 417) 0.05 See_Comment [A utomated message] The system [employer] generated this result transmitted ref erence range: 0.00 - 0 .20 K/L. The refe rence range was not u sed to interpret this result as normal/abnor mal. Immature 0 % 0-0 Granulocytes-Relative (test code = 2801) Lab Interpretation (test Abnormal code = 49605-9) [facility] with platelet count + automated [id number] 19:43:00 Test Item Value Reference Range Interpretation Comments WBC (test code = 6690-2) 6.2 See_Comment [A utomated message] The system [employer] generated this result transmitted ref erence range: 4.0 - 10 .0 K/L. The refe rence range was not u sed to interpret this result as normal/abnor mal. RBC (test code = 789-8) 3.93 See_Comment L [Au tomated message] The system [employer] generated this result transmitted ref erence range: 4.20 - 5 .80 M/L. The refe rence range was not u sed to interpret this result as normal/abnor mal. MCHC (test code = 786-4) 34.2 See_Comment L [A utomated message] The system [employer] generated this result transmitted ref erence range: [...] code = 308 See_Comment [Aut omated message] 027-3) The system [employer] generated this result transmitted ref erence range: 150 - 43 0 K/CU MM. The referen ce range was not u sed to interpret this result as normal/abnor mal. MPV (test code = 8.7 fL 6.0-11.5 35988-7) nRBC (test code = 413) 0 See_Comment [Aut omated message] The system [employer] generated this result transmitted ref erence range: [...] See_Comment [Aut omated message] 670) The system [employer] generated this result transmitted ref erence range: 1.80 - 8 .00 K/L. The refe rence range was not u sed to interpret this result as normal/abnor mal. # Lymphs (test code = 2.15 See_Comment [Auto mated message] 414) The system [employer] generated this result transmitted ref erence range: 1.48 - 4 .50 K/L. The refe rence range was not u sed to interpret this result as normal/abnor mal. # Monos (test code = 0.49 See_Comment [Autom ated message] 415) The system [employer] generated this result transmitted ref erence range: 0.00 - 1 .30 K/L. The refe rence range was not u sed to interpret this result as normal/abnor mal. # Eos (test code = 416) 0.51 See_Comment H [Au tomated message] The system [employer] generated this result transmitted ref erence range: 0.00 - 0 .50 K/L. The refe rence range was not u sed to interpret this result as normal/abnor mal. # Baso (test code = 417) 0.05 See_Comment [A utomated message] The system [employer] generated this result transmitted ref erence range: 0.00 - 0 .20 K/L. The refe rence range was not u sed to interpret this result as normal/abnor mal. Immature 0 % 0-0 Granulocytes-Relative (test code = 2801) Lab Interpretation (test Abnormal code = 93572-4) [facility] with platelet count + automated [id number] 19:43:00 Test Item Value Reference Range Interpretation Comments WBC (test code = 6690-2) 6.2 See_Comment [A utomated message] The system [employer] generated this result transmitted ref erence range: 4.0 - 10 .0 K/L. The refe rence range was not u sed to interpret this result as normal/abnor mal. RBC (test code = 789-8) 3.93 See_Comment L [Au tomated message] The system [employer] generated this result transmitted ref erence range: 4.20 - 5 .80 M/L. The refe rence range was not u sed to interpret this result as normal/abnor mal. MCHC (test code = 786-4) 34.2 See_Comment L [A utomated message] The system [employer] generated this result transmitted ref erence range: [...] See_Comment [Aut omated message] 777-3) The system [employer] generated this result transmitted ref erence range: 150 - 43 0 K/CU MM. The referen ce range was not u sed to interpret this result as normal/abnor mal. MPV (test code = 8.7 fL 6.0-11.5 65237-0) nRBC (test code = 413) 0 See_Comment [Aut omated message] The system [employer] generated this result transmitted ref erence range: [...] See_Comment [Aut omated message] 670) The system [employer] generated this result transmitted ref erence range: 1.80 - 8 .00 K/L. The refe rence range was not u sed to interpret this result as normal/abnor mal. # Lymphs (test code = 2.15 See_Comment [Auto mated message] 414) The system [employer] generated this result transmitted ref erence range: 1.48 - 4 .50 K/L. The refe rence range was not u sed to interpret this result as normal/abnor mal. # Monos (test code = 0.49 See_Comment [Autom ated message] 415) The system [employer] generated this result transmitted ref erence range: 0.00 - 1 .30 K/L. The refe rence range was not u sed to interpret this result as normal/abnor mal. # Eos (test code = 416) 0.51 See_Comment H [Au tomated message] The system [employer] generated this result transmitted ref erence range: 0.00 - 0 .50 K/L. The refe rence range was not u sed to interpret this result as normal/abnor mal. # Baso (test code = 417) 0.05 See_Comment [A utomated message] The system [employer] generated this result transmitted ref erence range: 0.00 - 0 .20 K/L. The refe rence range was not u sed to interpret this result as normal/abnor mal. Immature 0 % 0-0 Granulocytes-Relative (test code = 2801) Lab Interpretation (test Abnormal code = 04526-9) [facility] W/PLT COUNT & AUTO [id number] 19:43:00 Test Item Value Reference Range Interpretation [...] PERCENT (BEAKER) (test code = 2801) SURGICAL [id number] 07:40:00 RUN DATE: 09/19/18 [facility] *LIVE* PAGE 1 RUN TIME: 740 Specimen Inquiry RUN USER: INTERFACE --------- ---PATIENT: VERÓNICA NUNN LOC: [facility] U #: [id number] AGE/SX: 32/M ROOM: [facility] RE09/15/18REG DR: Keith Swann MD : 84 BED: 1 DIS: 09/16/18 STATUS: DIS IN TLOC: SPEC #: [id number] RECD: 09/15/18 STATUS: DRAGAN [place] #: [id number] DONA: 09/15/[address]: Keith Swann MD ENTERED: 09/18/18SP TYPE: SURG SPEC OTHR DR: No Primary or Family Physician Self Referred Gale Dowling MDORDERED: GM LEVEL 4 CODES: [id number] - ESOPHAGUS, NOS COPIES TO: No Primary or Family Physician Self Referred Keith Swann MD [address] [place] [address] Gale Dowling MD [address] [place] [address] PROCEDURES: GM LEVEL 4 (Incomplete) TISSUES: 1. ESOPHAGUS, NOS - Esophagus, bx. FINAL DIAGNOSIS Esophagus, bx.: Eosinophilic esophagitis. GROSS AND MICROSCOPIC GROSS EXAMINA TION: Received in formalin labeled esophagus biopsy are [...] CONTINUED ON NEXT PAGE RUN DATE: 09/19/18 [facility] *LIVE* PAGE 2 RUN TIME: 740 Specimen Inquiry RUN USER: INTERFACE SPEC #: [id number] PATIENT: VERÓNICA NUNN #[id number] (Continued) POST-OP DIAGNOSIS Esophagitis, supertial tear in the esophagus, R/O Flor, esosinophilic es PRE-OP DIAGNOSIS Hematemesis Signed SIGNATURE ON FILE Joce Barbosa Ilsa QUINONES 09/19/18 0740 -- END OF REPORTBASIC METABOLIC [id number] 08:40:00 Test Item Value Reference Range Interpretation [...] 9.1 mg/dL 8.0-10.5 N CA) CBC W/AUTO [id number] 08:20:00 Test Item Value Reference Range Interpretation [...] (test code NO = MDIFF) CBC W/AUTO [id number] 22:25:00 Test Item Value Reference Range Interpretation [...] (test code NO = MDIFF) CBC W/AUTO [id number] 12:50:00 Test Item Value Reference Range Interpretation [...] (test code NO = MDIFF) CBC W/AUTO [id number] 07:24:00 Test Item Value Reference Range Interpretation [...] REQUIRED (test NO code = MDIFF) PROTHROMBIN [id number] 00:10:00 Test Item Value Reference Range Interpretation [...] (to prevent recurrent infar ct). CBC W/AUTO [id number] 00:03:00 Test Item Value Reference Range Interpretation [...] REQUIRED (test NO code = MDIFF) PROTHROMBIN [id number] 18:57:00 Test Item Value Reference Range Interpretation Comments PT PATIENT (test code = PTP) 13.1 SECONDS 9.3-12.9 H INTERNATIONAL NORMAL RATIO 1.14 INR Unit 0.8-1.2 N (test code = INR) URINALYSIS [id number] 18:56:00 Test Item Value Reference Range Interpretation [...] code = LEUU) - CT ABD PELVIS [id number] 16:49:00 Name: VERÓNICA NUNN [place] : 1985 Age/S: 32 / M [id number] Unit #: [id number] Loc: [place] [address] Phys: Ivette Choudhary MD Acct: [id number] Dis Date: Status: REG ER PHONE #: [phone] Exam Date: 09/14/2018 1634 FAX #: Reason: abd pain unable to give further info 08/05 mr EXAMS: CPT: [id number] CT ABD PELVIS W/CONT 46038 EXAMINATION: - CT ABD PELVIS W/CONT. LOCATION: [...] 1 Signed Report (CONTINUED) Name: VERÓNICA NUNN [place] : 1985 Age/S: 32 / M [id number] Unit #: [id number] Loc: [place] [address] Phys: Ivette Choudhary MD Acct: [id number] Dis Date: Status: REG ER PHONE #: [phone] Exam Date: 09/14/2018 1635 FAX #: Reason: abd pain unable to give further info 08/05 mr EXAM S: CPT: [id number] CT ABD PELVIS W/CONT 34436 (Continued) CC: Ivette Choudhary MD Technologist:Mariely Brar, RT(R)(CT) CTDI: DLP: Trnscb Date/Time: 09/14/2018 (186) [email or web address] Orig Print D/T: S: 09/14/2018 (031) CTDI: DLP: PAGE 2 Signed ReportBASIC METABOLIC [id number] 16:06:00 Test Item Value Reference Range Interpretation [...] CA) 9.7 MG/DL 8.5-10.1 N HEPATIC FUNCTION [id number] 16:06:00 Test Item Value Reference Range Interpretation [...] 89 Unit/L 50-136 N code = ALKP) [id number] 16:06:00 Test Item Value Reference Range Interpretation Comments LIPASE (test code = LIP) 173 Unit/L 114-286 N BASIC METABOLIC [id number] 15:56:00 Test Item Value Reference Range Interpretation [...] CA) 9.7 MG/DL 8.5-10.1 N HEPATIC FUNCTION [id number] 15:56:00 Test Item Value Reference Range Interpretation [...] TOTAL (test code Unit/L 50-136 = ALKP) [id number] 15:56:00 Test Item Value Reference Range Interpretation Comments LIPASE (test code = LIP) 173 Unit/L 114-286 N CBC W/AUTO [id number] 15:47:00 Test Item Value Reference Range Interpretation [...]
--- NOTE | 2022-03-22 05:40 | EDPHYS ---
Physician Documentation [facility] Name: Alexy Mock Age: 36 yrs Sex: Male : 1985 Arrival Date: 03/22/2022 Time: 05:09 Bed 6 Private MD: ED Physician Vidal Gomez HPI: 03/22 05:35 This 36 yrs old Male presents to ER via EMS with complaints of peg pulled out. [facility] 05:35 The patient presents with abdominal pain in the upper abdomen, in the left upper anthony quadrant. Onset: The symptoms/episode began/occurred just prior to arrival. The symptoms do not radiate. Associated signs and symptoms: none. The symptoms are described as achy. Modifying factors: The symptoms are alleviated by nothing. Severity of pain: At its worst the pain was mild in the emergency department the pain is unchanged. Historical: - Allergies: 05:15 No Known Allergies; ke1 - PMHx: 05:15 abnormal liver function; adhd; Anemia; Bipolar disorder; DYSPHAGIA; ENCEPHALOPATHY; ke1 epilepsy; MR; pressure ulcer sacral region; - PSHx: 05:15 G tube; ke1 - Immunization history:: Client reports receiving the 2nd dose of the Covid vaccine. - Family history:: not pertinent. - Social history:: Smoking status: Patient denies any tobacco usage or history of. ROS: 05:35 Constitutional: Negative for fever, chills, and weight loss, Eyes: Negative for injury, anthony pain, redness, and discharge, ENT: Negative for injury, pain, and discharge, Neck: Negative for injury, pain, and swelling, Cardiovascular: Negative for chest pain, palpitations, and edema, Respiratory: Negative for shortness of breath, cough, wheezing, and pleuritic chest pain, Back: Negative for injury and pain, : Negative for injury, bleeding, discharge, and swelling, MS/Extremity: Negative for injury and deformity, Skin: Negative for injury, rash, and discoloration, Neuro: Negative for headache, weakness, numbness, tingling, and seizure, Psych: Negative for depression, anxiety, suicide ideation, homicidal ideation, and hallucinations, Allergy/Immunology: Negative for hives, rash, and allergies, Endocrine: Negative for neck swelling, polydipsia, polyuria, polyphagia, and marked weight changes, Hematologic/Lymphatic: Negative for swollen nodes, abnormal bleeding, and unusual bruising. 05:35 Abdomen/GI: Positive for abdominal pain, of the left upper quadrant. Exam: 05:35 Constitutional: This is a well developed, well nourished patient who is awake, alert, anthony and in no acute distress. Head/Face: Normocephalic, atraumatic. Eyes: Pupils equal round and reactive to light, extra-ocular motions intact. Lids and lashes normal. Conjunctiva and sclera are non-icteric and not injected. Cornea within normal limits. Periorbital areas with no swelling, redness, or edema. ENT: Nares patent. No nasal discharge, no septal abnormalities noted. Tympanic membranes are normal and external auditory canals are clear. Oropharynx with no redness, swelling, or masses, exudates, or evidence of obstruction, uvula midline. Mucous membranes moist. Neck: Trachea midline, no thyromegaly or masses palpated, and no cervical lymphadenopathy. Supple, full range of motion without nuchal rigidity, or vertebral point tenderness. No Meningismus. Chest/axilla: Normal chest wall appearance and motion. Nontender with no deformity. No lesions are appreciated. Cardiovascular: Regular rate and rhythm with a normal S1 and S2. No gallops, murmurs, or rubs. Normal PMI, no JVD. No pulse deficits. Respiratory: Lungs have equal breath sounds bilaterally, clear to auscultation and percussion. No rales, rhonchi or wheezes noted. No increased work of breathing, no retractions or nasal flaring. Back: No spinal tenderness. No costovertebral tenderness. Full range of motion. Male : Normal genitalia with no discharge or lesions. Skin: Warm, dry with normal turgor. Normal color with no rashes, no lesions, and no evidence of cellulitis. MS/ Extremity: Pulses equal, no cyanosis. Neurovascular intact. Full, normal range of motion. Neuro: Awake and alert, GCS 15, oriented to person, place, time, and situation. Cranial nerves II-XII grossly intact. Motor strength 5/5 in all extremities. Sensory grossly intact. Cerebellar exam normal. Normal gait. Psych: Awake, alert, with orientation to person, place and time. Behavior, mood, and affect are within normal limits. 05:35 Abdomen/GI: Inspection: abdomen appears normal, Bowel sounds: normal, Palpation: abdomen is soft and non-tender, Liver: no appreciated palpable abnormalities, Hernia: not appreciated. Vital Signs: 05:10 BP 137 / 105; Pulse 90; Resp 18; Temp 97.6(TE); Pulse Ox 100% on R/A; ke1 06:51 BP 134 / 108; Pulse 97; Resp 17; Pulse Ox 100% on R/A; ll3 07:26 BP 134 / 105; Pulse 96; Pulse Ox 100% ; ap3 08:27 BP 133 / 101; Pulse 97; Pulse Ox 98% on R/A; ap3 09:13 BP 131 / 99; Pulse 96; Pulse Ox 98% on R/A; ap3 MDM: 05:13 Patient medically screened. [facility] 05:37 Data reviewed: vital signs, nurses notes, radiologic studies, plain films. [facility] 03/22 05:16 Order name: CT Head C Spine [facility] 03/22 05:20 Order name: Head C Spine Mpr Wo Con EDMS 03/22 05:35 Order name: Abdomen 1 View (KUB) XRAY: 30 cc gastrograffin to peg [facility] 03/22 06:44 Order name: Abdomen Single View EDMS Administered Medications: No medications were administered Disposition Summary: 03/22/22 05:39 Discharge Ordered Location: Home anthony Problem: new anthony Symptoms: have improved anthony Condition: Stable anthony Diagnosis - Gastrostomy complications anthony - Encounter for attention to gastrostomy - replaced anthony Followup: anthony - With: Private Physician - When: 2 - 3 days - Reason: Recheck today's complaints, Continuance of care, Re-evaluation by your physician Followup: anthony - With: Wilber Jackson MD - When: 2 - 3 days - Reason: Recheck today's complaints, Continuance of care, Re-evaluation by your physician Discharge Instructions: - Discharge Summary Sheet anthony - Gastrostomy Tube Replacement anthony - Gastrostomy Tube Home Guide, Adult anthony - PEG Tube Home Guide, [id number] atnhony - PEG Tube Home Guide anthony Forms: - Medication Reconciliation Form anthony - Thank You Letter anthony - Antibiotic Education anthony - Prescription Opioid Use anthony Signatures: Dispatcher [employer] EDMS Vidal Gomez MD MD cha Prokisch, Amanda RN RN ap3 Odalis Hernandez RN RN ke1
--- NOTE | 2022-03-22 05:40 | ER ---
[facility] Name: Alexy Mock Age: 36 yrs Sex: Male : 1985 Arrival Date: 03/22/2022 Time: 05:09 Bed 6 Private MD: Diagnosis: Gastrostomy complications;Encounter for attention to gastrostomy-replaced Presentation: 03/22 05:10 Chief complaint: EMS states: Unwitnessed fall at Nursing facility, found \T\ 0450 am. ke1 Coronavirus screen: Vaccine status:. Ebola Screen: No symptoms or risks identified at this time. Initial Sepsis Screen: Does the patient meet any 2 criteria? No. Patient's initial sepsis screen is negative. Does the patient have a suspected source of infection? No. Patient's initial sepsis screen is negative. Risk Assessment: Do you want to hurt yourself or someone else? Unable to obtain. Onset of symptoms was March 22, 2022. 05:10 Method Of Arrival: EMS ke 05:10 Acuity: ELROY 3 ke1 Triage Assessment: 05:16 General: Appears unkempt, Behavior is flat, inappropriate for age, unable to speak. ke1 Pain: Unable to use pain scale. FLACC scale score is 0 out of 10. Derm: Skin bump right eyebrow. Historical: - Allergies: 05:15 No Known Allergies; ke1 - PMHx: 05:15 abnormal liver function; adhd; Anemia; Bipolar disorder; DYSPHAGIA; ENCEPHALOPATHY; ke1 epilepsy; MR; pressure ulcer sacral region; - PSHx: 05:15 G tube; ke1 - Immunization history:: Client reports receiving the 2nd dose of the Covid vaccine. - Family history:: not pertinent. - Social history:: Smoking status: Patient denies any tobacco usage or history of. Screenin:18 Abuse screen: Denies threats or abuse. Nutritional screening: No deficits noted. ap3 Tuberculosis screening: No symptoms or risk factors identified. Fall Risk Fall in past 12 months (25 points). Secondary diagnosis (15 points) No IV (0 pts). Ambulatory Aid- None/Bed Rest/Nurse Assist (0 pts). Gait- Impaired (20 pts.). Mental Status- Overestimates/Forgets Limitations (15 pts.). Total Hernández Fall Scale indicates High Risk Score (45 or more points). Fall prevention measures have been instituted. Side Rails Up X 2 Placed Close to Nursing Station Frequent Obs/Assessments Occuring As available patient and family educated on Fall Prevention Program and Strategies. Assessment: 06:51 Reassessment: No changes from previously documented assessment. Patient and/or family ll3 updated on plan of care and expected duration. Pain level reassessed. Patient is alert, oriented x 3, equal unlabored respirations, skin warm/dry/pink. 07:27 General: Appears slender. Pain: Unable to use pain scale. Does not appear to understand ap3 pain scale. Cardiovascular: Patient's skin is warm and dry. Respiratory: Airway is patent Respiratory effort is even, unlabored, Respiratory pattern is regular, symmetrical. 08:27 Reassessment: Patient and/or family updated on plan of care and expected duration. Pain ap3 level reassessed. Patient is alert, oriented x 3, equal unlabored respirations, skin warm/dry/pink. 08:32 General: awaiting report on abdominal xray prior to patients discharge. nurse contacted [facility] X-Ray department, who stated the imaging had been done, they were waiting for the report. provider and charge nurse updated on imaging status. . Vital Signs: 05:10 BP 137 / 105; Pulse 90; Resp 18; Temp 97.6(TE); Pulse Ox 100% on R/A; ke1 06:51 BP 134 / 108; Pulse 97; Resp 17; Pulse Ox 100% on R/A; ll3 07:26 BP 134 / 105; Pulse 96; Pulse Ox 100% ; ap3 08:27 BP 133 / 101; Pulse 97; Pulse Ox 98% on R/A; ap3 09:13 BP 131 / 99; Pulse 96; Pulse Ox 98% on R/A; ap3 ED Course: 05:09 Patient arrived in ED. ke1 05:10 Odalis Hernandez, GILLIAN is Primary Nurse. ke1 05:13 Vidal Gomez MD is Attending Physician. anthony 05:15 Triage completed. ke1 05:39 Wilber Jackson MD is Referral Physician. anthony 06:01 Head C Spine Mpr Wo Con In Process Unspecified. EDMS 06:02 Abdomen 1 View (KUB) XRAY: 30 cc gastrograffin to peg In Process Unspecified. EDMS 06:51 Arm band placed on Patient placed in an exam room, on a stretcher, on pulse oximetry. ll3 07:07 Abdomen Single View In Process Unspecified. EDMS 11:19 No provider procedures requiring assistance completed. Patient did not have IV access ap3 during this emergency room visit. 11:20 Patient has correct armband on for positive identification. Bed in low position. Call ap3 light in reach. Side rails up X2. compliance monitor on. Pulse ox on. NIBP on. Warm blanket given. Administered Medications: No medications were administered Medication: 11:20 VIS not applicable for this client. ap3 Outcome: 05:39 Discharge ordered by MD. cruz 11:19 Discharged to alf. Report called to receiving CHAIRMAN & CHIEF EXECUTIVE OFFICER ap3 11:19 Condition: good 11:19 Discharge instructions given to alf, Instructed on discharge instructions, follow up and referral plans. Demonstrated understanding of instructions, follow-up care. 11:20 Patient left the ED. ap3 Signatures: Dispatcher [employer] EDMS Vidal Gomez MD MD cha Prokisch, Amanda, RN RN ap3 Geronimo Douglas RN RN 3 Odalis Hernandez, RN RN ke1 Corrections: (The following items were deleted from the chart) 11:19 11:18 Fall Risk None identified. ap3 ap3
--- NOTE | 2022-03-22 08:50 | RAD REPORT ---
EXAM DESCRIPTION: RAD - Abdomen 1 View (KUB) - 03/22/2022 6:00 am CLINICAL HISTORY: ABD PAIN Pain COMPARISON: Abdomen 1 View (KUB) dated 03/20/2022 FINDINGS: Gaseous distention of bowel is present in the abdomen. G-tube noted. No bowel obstruction. No suspicious calcifications. No significant bony findings. IMPRESSION: Gaseous distention of bowel could indicate adynamic ileus.
--- NOTE | 2022-03-22 09:15 | RAD REPORT ---
EXAM DESCRIPTION: RAD - Abdomen Single View - 03/22/2022 7:06 am CLINICAL HISTORY: WITH 30 CC GASTROGRAFFIN Pain COMPARISON: No comparisons FINDINGS: Contrast was injected by clinical personnel into the existing G-tube. The contrast is seen within the stomach indicating appropriate G-tube placement. No contrast leakage is seen.
--- NOTE | 2022-03-22 11:30 | RAD REPORT ---
EXAM DESCRIPTION: CT Head and Cervical Spine Without Intravenous Contrast CLINICAL HISTORY: The patient is 36 years old and is Male; fall TECHNIQUE: Axial computed tomography images of the head/brain and cervical spine without intravenous contrast. Sagittal and coronal reformatted images were created and reviewed. This CT exam was pe rformed using one or more of the following dose reduction techniques: automated exposure control, a djustment of the mA and/or kV according to patient size, and/or use of iterative reconstruction techn ique. COMPARISON: No relevant prior studies available. FINDINGS: Brain: Unremarkable. No hemorrhage. No significant white matter disease. No edema. Ventricles: Unremarkable. No ventriculomegaly. Skull: No acute fracture. Sinuses: Unremarkable as visualized. No acute sinusitis. Mastoid air cells: Unremarkable as visualized. No mastoid effusion. Vertebrae: No acute cervical spine fracture. Normal alignment. Discs/spinal canal/neural foramina: No acute findings. No spinal canal stenosis. Soft tissues: Unremarkable. Pleural space: No apical pneumothorax. IMPRESSION: 1. No intracranial hemorrhage. No acute skull fracture. 2. No acute cervical spine fracture. Electronically signed by: Santa Vila MD 03/22/2022 6:26 AM CDT Due to temporary technical issues with the PACS/Fluency reporting system, reports are being signed by the in house radiologists without review as a courtesy to insure prompt reporting. The interpreting radiologist is fully responsible for the content of the report.
[2022-03-23 14:55] VITALS: TEMP 97.6
[2022-03-23 15:02] VITALS: O2SAT 98
[2022-03-23 15:04] VITALS: BP 131/99
== END 2022-03-22 11:20 | disposition home or self-care (01) ==
LOC: ER 05:06
PROC: 0DH67UZ Insertion of Feeding Device into Stomach, Via Natural or Artificial Opening (ICD-10-PCS; principal; 2022-03-22)
DX: K94.29 Other complications of gastrostomy (principal)
CPT/HCPCS: 70450; 72125; 74018; 99284

== ENCOUNTER 2022-03-28 09:12 | Inpatient (IN) | payer OTHER ==
--- OUTSIDE RECORDS SUMMARY | 2022-03-28 09:21 | XMS REPORT | Continuity of Care Document ---
:1985 Author Organization [facility] t Address [address] [place] [address] Care Team Providers Name Role Phone Asked, No Pcp Primary Care Physician Unavailable WANDA SHUKLA Attending Clinician Unavailable KAMILLE BETTENCOURT Attending Clinician Unavailable SVEN_STACI_Neftaly Attending Clinician Unavailable Mariela Linares Attending Clinician [phone] Damir Nieves Attending Clinician [phone] Isidoro Kumar Attending Clinician ISIDORO KUMAR Attending Clinician Unavailable ANNIE MOON Attending Clinician Unavailable ARVIND LOWE Attending Clinician Unavailable Arvind Lowe Attending Clinician Chris Vega Attending Clinician [phone] MODESTO CLOUD Attending Clinician Unavailable Modesto Cloud MD Attending Clinician [phone] Zain David Attending Clinician Unavailable Molina Hernández MD Attending Clinician Sarai BECKER, Annie Henley Attending Clinician Lion Parry MD, Kym Attending Clinician [phone] Richardson BECKER, Marla Polanco Attending Clinician Elida Peter MD Attending Clinician Malissa Donald Attending Clinician + [phone] ELIDA PETER Attending Clinician Unavailable KYM GUTIERREZ Attending Clinician Unavailable Wanda Shukla Attending Clinician BARRERA ANDERSON Attending Clinician Unavailable Sylvia BECKER, Barrera Siddiqui Attending Clinician [phone] BRII CAMPBELL Attending Clinician Unavailable Brii Campbell MD Attending Clinician Jazmin Ham Attending Clinician [phone] Handy Hammonds Attending Clinician Rony Penny Attending Clinician Annette Butler Attending Clinician Kingsley Barney Attending Clinician Vijay Combs Attending Clinician Alexis Shields Attending Clinician [facility] Admitting Clinician Unavailable Isidoro Kumar Admitting Clinician ISIDORO KUMAR Admitting Clinician Unavailable ARVIND LOWE Admitting Clinician Unavailable Arvind Lowe Admitting Clinician Chris Vega Admitting Clinician [phone] Physician, No Primary or Family Admitting Clinician UnavailMALISSA Montaño Admitting Clinician Unavailable Dee Hammondsshanna Kianna Admitting Clinician Annette Butler Admitting Clinician Vijay Combs Admitting Clinician Payers Payer Name Policy Type Policy Number Effective Date Expiration Date S [place] MEDICAID [id number] 2018 00:00:00 MEDICARE PART A & [id number] 2010 B 00:00:00 [place]: [id number] 2010 [email or web address] 00:00:00 [place] [id number] [place] MEDICARE A B [id number] 2010 00:00:00 TP14 MAO SSI [id number] 2018 RELATED 00:00:00 Problems Condition Condition Condition Status Onset Resolution Last Treating Co mments Source Name Details Category Date Date Treatment Clinician Date Chronic Chronic Problem Active [facility] pain Pain 9-22 Medical following Following 00:00: trauma Trauma 00 Influenza Influenza Problem Active [facility] via 9-22 Medical 00:00: 00 COVID-19 Covid-19 Problem Active [facility] 9-22 Medical 00:00: 00 Total Total Problem Active [facility] self-care Self-care 8-28 Medi jonatan deficit Deficit 00:00: 00 Pressure Pressure Problem Active [facility] injury of Injury of 8-25 Medi jonatan sacral Sacral 00:00: region of Region of 00 back 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 8-25 Medical 00:00: 00 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 8-25 Me dical ia ia 00:00: 00 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 thrive Thrive 00:00: syndrome Syndrome 00 Dysphagia Dysphagia Problem Active [facility] via 02-25 Medical 00:00: 00 Gastrostom Gastrostom Problem Active [facility] y present y Present 02-25 Medi jonatan 00:00: 00 Epilepsy Epilepsy Problem Active [facility] 02-18 Medical 00:00: 00 Constipati Constipati Disease Active [facility] on on 12-14 Health 00:00: 00 Urinary Urinary Disease Active [facility] retention retention 12-14 Heal th 00:00: 00 AMS AMS Disease Active [facility] (altered (altered 12-03 [facility] mental mental 00:00: status) status) 00 Head Head Disease Active [facility] trauma trauma 12-02 Health 00:00: 00 Facial Facial Disease Active [facility] Cauliflowe Cauliflowe Disease Active [facility] ear, r ear, 11-[facility] right right [facility] Disorder Disorder Disease Active [facility] of impulse of impulse 02-26 He alth control control 00:00: 00 Mood Mood Disease Active [facility] disorder disorder 02-26 Health 00:00: 00 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 02-26 Health disorder disorder 00:00: 00 Intellectu Intellectu Disease Active [facility] al al 02-20 Health disability disability 00:00: 00 Bipolar Bipolar Disease Active [facility] disorder, disorder, 02-20 Heal unspecifie unspecifie 00:00: d d 00 Psychotic 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 02-20 Health 00:00: 00 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 He alth Suicidal Suicidal Disease Active [facility] ideation ideation Health Aggressive Aggressive Disease Active [facility] behavior, behavior, Heal adult adult Other Other Disease Active [place] insomnia insomnia Health Bipolar 1 Bipolar 1 Disease Active [facility] ris disorder disorder Health Elevated Elevated Disease Active [facility] lithium lithium Health level level Anemia Anemia Disease Active [facility] Weight Weight Disease Active [place] loss loss Health Agitation Agitation Disease Active [facility] ris Health 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 Protein-ca Me dical bonny bonny malnutriti Malnutriti on ([place]: on ([place]: less than Less than 60 percent 60 Percent of of standard Standard weight) Weight) Hypoalbumi Hypoalbumi Problem Active [facility] nemia nemia Medical Severe Severe Problem Active [facility] bipolar Bipolar Medical disorder Disorder with with psychotic Psychotic features Features 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 Explosive disorder Disorder Attention Attention Problem Active [facility] via deficit Deficit Medical hyperactiv Hyperactiv ity ity disorder Disorder Developmen Developmen Problem Active [facility] tally tally Medical disabled Disabled Toxic Toxic Problem Active [facility] encephalop Encephalop Me dical athy athy Underweigh Underweigh Problem Active [facility] t t Medical Elevated Elevated Problem Active [facility] liver Liver Medical enzymes Enzymes level Level Allergies, Adverse Reactions, Alerts Allergy Allergy Status Severity Reaction(s) Onset Inactive Treating Comm ents Source Name Type Date Date Clinician No Known DA Active [facility]08 [facility] 00:[facility]: d 00 [facility] No Known DA Active U 2016-07 [facility] Allergie 07-28 [facility] 00:[facility]: d 00 [facility] No Known DA Active U 2016-07 [facility] 07-28 [facility] s 00:00: Andre 00 [facility] NO KNOWN Allergy Active [facility] Social History Social Habit Start Date Stop Date Quantity Comments Source History [facility] Food [facility] Worry History SDLA Food 2021-12-23 2021-12-23 1 [facility] Scarcity 00:00:00 00:00:00 Tobacco use and 2021-12-23 2021-12-23 Smokeless tobacco [facility] exposure 00:00:00 00:00:00 non-user Alcohol intake 2021-12-23 2021-12-23 [facility] lt 00:00:00 00:00:00 non-drinker (finding) Sex Ass[birth year] At [birth year] [facility] alth 00:00:00 00:00:00 Smoking Status Start Date Stop Date Source Tobacco smoking consumption unknown [facility] Never Smoker [facility] Medications Ordered Filled Start Stop Current Ordering Indication Dosage Frequency Signature Comments Components Source Medication Medication Date Date Medication? Clinician (SIG) Name Name furosemide 2021- 20mg QD Take [address] [facility] (LASIX) [...] :00 for 1 Center dose. furosemide 2022-0 2- No 20mg QD Take 1 [facility] [...] Center daily for 3 days. magnesium 2022-0 2- No 296mL Take [address] citrate 7-12 07-12 mLs [facility] solution 00:00: 23:59 mouth once Me dical 00 :00 for 1 Center dose. pantoprazol 2021-0 Yes 40mg QD Take 40 mg [facility] [...] tablet 00 (two) Center times daily. levETIRAcet 0 Yes 500mg Q.5D Take [address] am (KEPPRA) 6-23 [facility] 500 MG 00:00: mouth 2 Medical tablet 00 (two) Center times daily. tamsulosin 2021- No .4mg Take 0.[address] (FLOMAX) 6-15 09-13 [facility] 0.4 mg Cap 00:00: 23:59 mouth. Medi jonatan 24 hr 00 :00 Center capsule tamsulosin 2021- No [facility] .4mg QD Take 1 [facility] (FLOMAX) 6-15 09-13 l capsule by [facility] 0.4 mg 00:00: 23:59 disability mouth capsule 00 :00 daily for 90 days. Start 12/16/21. haloperidoL 2021- No [facility] 10mg QD Take 1 [facility] (HALDOL) 10 6-15 09-13 l tablet by alth mg tablet 00:00: 23:59 disability mouth 00 :00 daily for 90 days. Start 12/16/21. tamsulosin 2021- No [facility] .4mg QD Take 1 [facility] (FLOMAX) 6-15 09-13 l capsule by [facility] 0.4 mg 00:00: 23:59 disability mouth capsule 00 :00 daily for 90 days. Start 12/16/21. haloperidoL 2021- No [facility] 10mg QD Take 1 [facility] (HALDOL) 10 6-15 09-13 l tablet by He alth mg tablet 00:00: 23:59 disability mouth 00 :00 daily for 90 days. Start 12/16/21. tamsulosin 2021- No [facility] .4mg QD Take 1 [facility] (FLOMAX) 6-15 09-13 l capsule by [facility] 0.4 mg 00:00: 23:59 disability mouth capsule 00 :00 daily for 90 days. Start 12/16/21. haloperidoL 2021- No [facility] 10mg QD Take 1 [facility] (HALDOL) 10 6-15 09-13 l tablet by alth mg tablet 00:00: 23:59 disability mouth 00 :00 daily for 90 days. Start 12/16/21. tamsulosin 2021- No [facility] .4mg QD Take 1 [facility] (FLOMAX) 6-15 09-13 l capsule by [facility] th 0.4 mg 00:00: 23:59 disability mouth capsule 00 :00 daily for 90 days. Start 12/16/21. haloperidoL 2021- No [facility] 10mg QD Take 1 [facility] (HALDOL) 10 6-15 09-13 l tablet by alth mg tablet 00:00: 23:59 disability mouth 00 :00 daily for 90 days. Start 12/16/21. tamsulosin 2021- No [facility] .4mg QD Take 1 [facility] (FLOMAX) 6-15 09-13 l capsule by [facility] 0.4 mg 00:00: 23:59 disability mouth capsule 00 :00 daily for 90 days. Start 12/16/21. haloperidoL 2021- No [facility] 10mg QD Take 1 [facility] (HALDOL) 10 6-15 09-13 l tablet by alth mg tablet 00:00: 23:59 disability mouth 00 :00 daily for 90 days. Start 12/16/21. tamsulosin 2021- No [facility] .4mg QD Take 1 [facility] (FLOMAX) 6-15 09-13 l capsule by [facility] th 0.4 mg 00:00: 23:59 disability mouth capsule 00 :00 daily for 90 days. Start 12/16/21. haloperidoL 2021- No [facility] 10mg QD Take 1 [facility] (HALDOL) 10 6-15 09-13 l tablet by alth mg tablet 00:00: 23:59 disability mouth 00 :00 daily for 90 days. Start 12/16/21. tamsulosin 2021- No [facility] .4mg QD Take 1 [facility] (FLOMAX) 6-15 09-13 l capsule by [facility] 0.4 mg 00:00: 23:59 disability mouth capsule 00 :00 daily for 90 days. Start 12/16/21. haloperidoL 2021- No [facility] 10mg QD Take 1 [facility] (HALDOL) 10 6-15 09-13 l tablet by He alth mg tablet 00:00: 23:59 disability mouth 00 :00 daily for 90 days. Start 12/16/21. tamsulosin 2022-0 2022- No .4mg Take 0.4 [...] 24 hr 00 :00 Center capsule clonazePAM 2022-0 Yes .25mg Take 0.25 C [...] 0.5 MG 00:00: mouth. Medical tablet 00 [place] clonazePAM 2022-0 Yes .25mg Take 0.[address] (KlonoPIN) 6-14 [facility] 0.5 MG 00:00: mouth. Medical tablet 00 Center clonazePAM 2022-0 Yes .25mg Take 0.[address] (KlonoPIN) 6-14 [facility] 0.5 MG 00:00: mouth. Medical tablet 00 [place] clonazePAM 2022-0 Yes .25mg Take 0.[address] (KlonoPIN) 6-14 [facility] 0.5 MG 00:00: mouth. Medical tablet 00 [place] clonazePAM 2022-0 Yes .25mg Take 0.[address] (KlonoPIN) 6-14 [facility] 0.5 MG 00:00: mouth. Medical tablet 00 Center clonazePAM Yes .25mg Take 0.[address] (KlonoPIN) 6-14 mg by [facility] 0.5 MG 00:00: mouth. Medical tablet 00 Center cloNIDine 2021- No .1mg Take 0.[address] [facility] HCL 6-14 09-12 mg by [facility] (CATAPRES) 00:00: 23:59 mouth. Medi jonatan 0.1 MG 00 :00 Center tablet senna-docus 2021- No 2{tbl} Take [address] ate 6-14 09-12 tablets by [facility] (SENOKOT S) 00:00: 23:59 mouth. Med ical 8.6-50 mg 00 :00 Center per tablet sennosides- 2021- No [facility] 2{tbl} Q.5D Take 2 [facility] docusate 6-14 09-12 l tablets by [facility] sodium 00:00: 23:59 disability mouth 2 (SENNA 00 :00 (two) PLUS) times a 8.6-50 mg day for 90 tablet days mirtazapine 2021- No [facility] 15mg Take 1 [facility] (REMERON) 6-14 09-12 l tablet by [facility] 15 mg 00:00: 23:59 disability mouth at tablet 00 :00 bedtime nightly for 90 days lithium 2021- No [facility] 300mg Q.5D Take 1 [facility] carbonate 6-14 09-12 l capsule by [facility] (KALITH) 00:00: 23:59 disability mouth 2 300 mg 00 :00 (two) capsule times a day for 90 days haloperidoL 2021- No [facility] 20mg Take 2 [facility] (HALDOL) 10 6-14 09-12 l tablets by ealth mg tablet 00:00: 23:59 disability mouth at 00 :00 bedtime nightly for 90 days cloNIDine 2021- No [facility] .1mg Take 1 [facility] HCL 6-14 09-12 l tablet by [facility] (CATAPRES) 00:00: 23:59 disability mouth 0.1 mg 00 :00 every tablet evening amitriptyli 2021- No [facility] 10mg Take 1 [facility] ne (ELAVIL) 6-14 09-12 l tablet by [facility] 10 mg 00:00: 23:59 disability mouth at tablet 00 :00 bedtime nightly sennosides- 2021-2021- No [facility] 2{tbl} Q.5D Take 2 [facility] docusate 6-14 09-12 l tablets by [facility] sodium 00:00: 23:59 disability mouth 2 (SENNA 00 :00 (two) PLUS) times a 8.6-50 mg day for 90 tablet days mirtazapine 2021- No [facility] 15mg Take 1 [facility] (REMERON) 6-14 09-12 l tablet by [facility] 15 mg 00:00: 23:59 disability mouth at tablet 00 :00 bedtime nightly for 90 days lithium 2021- No [facility] 300mg Q.5D Take 1 [facility] carbonate 6-14 09-12 l capsule by [facility] (ESKALITH) 00:00: 23:59 disability mouth 2 300 mg 00 :00 (two) capsule times a day for 90 days haloperidoL 2021- No [facility] 20mg Take 2 [facility] (HALDOL) 10 6-14 09-12 l tablets by ealth mg tablet 00:00: 23:59 disability mouth at 00 :00 bedtime nightly for 90 days cloNIDine 2021- No [facility] .1mg Take 1 [facility] HCL 6-14 09-12 l tablet by [facility] (CATAPRES) 00:00: 23:59 disability mouth 0.1 mg 00 :00 every tablet evening amitriptyli 2021- No [facility] 10mg Take 1 [facility] ne (ELAVIL) 6-14 09-12 l tablet by [facility] 10 mg 00:00: 23:59 disability mouth at tablet 00 :00 bedtime nightly sennosides- 2021-2021- No [facility] 2{tbl} Q.5D Take 2 [facility] docusate 6-14 09-12 l tablets by [facility] sodium 00:00: 23:59 disability mouth 2 (SENNA 00 :00 (two) PLUS) times a 8.6-50 mg day for 90 tablet days mirtazapine 2021-2021- No [facility] 15mg Take 1 [facility] (REMERON) 6-14 09-12 l tablet by [facility] 15 mg 00:00: 23:59 disability mouth at tablet 00 :00 bedtime nightly for 90 days lithium 2021-2021- No [facility] 300mg Q.5D Take 1 [facility] carbonate 6-14 09-12 l capsule by [facility] ([facility]) 00:00: 23:59 disability mouth 2 300 mg 00 :00 (two) capsule times a day for 90 days haloperidoL 2021-2021- No [facility] 20mg Take 2 [facility] (HALDOL) 10 6-14 09-12 l tablets by ealth mg tablet 00:00: 23:59 disability mouth at 00 :00 bedtime nightly for 90 days cloNIDine 2021-2021- No [facility] .1mg Take 1 [facility] HCL 6-14 09-12 l tablet by [facility] ([facility]) 00:00: 23:59 disability mouth 0.1 mg 00 :00 every tablet evening amitriptyli 2021- No [facility] 10mg Take 1 [facility] ne (ELAVIL) 6-14 09-12 l tablet by [facility] 10 mg 00:00: 23:59 disability mouth at tablet 00 :00 bedtime nightly sennosides- 2021- No [facility] 2{tbl} Q.5D Take 2 [facility] docusate 6-14 09-12 l tablets by [facility] sodium 00:00: 23:59 disability mouth 2 (SENNA 00 :00 (two) PLUS) times a 8.6-50 mg day for 90 tablet days mirtazapine 2021- No [facility] 15mg Take 1 [facility] (REMERON) 6-14 09-12 l tablet by [facility] 15 mg 00:00: 23:59 disability mouth at tablet 00 :00 bedtime nightly for 90 days lithium 2021-2021- No [facility] 300mg Q.5D Take 1 [facility] carbonate 6-14 09-12 l capsule by [facility] ([facility]) 00:00: 23:59 disability mouth 2 300 mg 00 :00 (two) capsule times a day for 90 days haloperidoL 2021-0 2021- No [facility] 20mg Take 2 [facility] (HALDOL) 10 6-14 09-12 l tablets by ealth mg tablet 00:00: 23:59 disability mouth at 00 :00 bedtime nightly for 90 days cloNIDine 2021- No [facility] .1mg Take 1 [facility] HCL 6-14 09-12 l tablet by [facility] (CATAPRES) 00:00: 23:59 disability mouth 0.1 mg 00 :00 every tablet evening amitriptyli 2021- No [facility] 10mg Take 1 [facility] ne (ELAVIL) 6-14 09-12 l tablet by alth 10 mg 00:00: 23:59 disability mouth at tablet 00 :00 bedtime nightly sennosides- 2021- No [facility] 2{tbl} Q.5D Take 2 [facility] docusate 6-14 09-12 l tablets by [facility] sodium 00:00: 23:59 disability mouth 2 (SENNA 00 :00 (two) PLUS) times a 8.6-50 mg day for 90 tablet days mirtazapine 2021- No [facility] 15mg Take 1 [facility] (REMERON) 6-14 09-12 l tablet by [facility] 15 mg 00:00: 23:59 disability mouth at tablet 00 :00 bedtime nightly for 90 days lithium 2021- No [facility] 300mg Q.5D Take 1 [facility] carbonate 6-14 09-12 l capsule by [facility] [place] ([facility]) 00:00: 23:59 disability mouth 2 300 mg 00 :00 (two) capsule times a day for 90 days haloperidoL 2021-2021- No [facility] 20mg Take 2 [facility] (HALDOL) 10 6-14 09-12 l tablets by ealth mg tablet 00:00: 23:59 disability mouth at 00 :00 bedtime nightly for 90 days cloNIDine 2021- No [facility] .1mg Take 1 [facility] HCL 6-14 09-12 l tablet by [facility] (CATAPRES) 00:00: 23:59 disability mouth 0.1 mg [...] [facility] (REMERON) 6-14 09-12 l tablet by [facility] 15 mg 00:00: 23:59 disability mouth at tablet 00 :00 bedtime nightly for 90 days lithium 2021- No [facility] 300mg Q.5D Take 1 [facility] carbonate 6-14 09-12 l capsule by [facility] lt (ESKALITH) 00:00: 23:59 disability mouth 2 300 mg 00 :00 (two) capsule times a day for 90 days haloperidoL 2021- No [facility] 20mg Take 2 [facility] (HALDOL) 10 6-14 09-12 l tablets by [facility]alth mg tablet 00:00: 23:59 disability mouth at 00 :00 bedtime nightly for 90 days cloNIDine 2021- No [facility] .1mg Take 1 [facility] HCL 6-14 09-12 l tablet by [facility] (CATAPRES) 00:00: 23:59 disability mouth 0.1 mg 00 :00 every tablet evening amitriptyli 2021- No [facility] 10mg Take 1 [facility] ne (ELAVIL) 6-14 09-12 l tablet by [facility] 10 mg 00:00: 23:59 disability [...] [facility] (REMERON) 6-14 09-12 l tablet by [facility] 15 mg 00:00: 23:59 disability mouth at tablet 00 :00 bedtime nightly for 90 days lithium 2021- No [facility] 300mg Q.5D Take 1 [facility] carbonate 6-14 09-12 l capsule by [facility] [place] (ESKALITH) 00:00: 23:59 disability mouth 2 300 mg 00 :00 (two) capsule times a day for 90 days haloperidoL 2021- No [facility] 20mg Take 2 [facility] (HALDOL) 10 6-14 09-12 l tablets by [facility]alth mg tablet 00:00: 23:59 disability mouth at 00 :00 bedtime nightly for 90 days cloNIDine 2021- No [facility] .1mg Take 1 [facility] HCL 6-14 09-12 l tablet by [facility] (CATAPRES) 00:00: 23:59 disability mouth 0.1 mg 00 :00 every tablet evening amitriptyli 2021- No [facility] 10mg Take 1 [facility] ne (ELAVIL) 6-14 09-12 l tablet by [facility] 10 mg 00:00: 23:59 disability mouth at tablet 00 :00 bedtime nightly cloNIDine 2021-2021- No .1mg Take 0.[address] [facility] HCL 6-14 09-12 [facility] (CATAPRES) 00:00: 23:59 mouth. Medi jonatan 0.1 MG 00 :00 Center tablet senna-docus 2021- No 2{tbl} Take [address] ate 6-14 09-12 tablets by [facility] (SENOKOT S) 00:00: 23:59 mouth. Med ical 8.6-50 mg 00 :00 Center per tablet cloNIDine 2021-2021- No .1mg Take 0.[address] [facility] HCL 6-14 09-12 mg [facility] (CATAPRES) 00:00: 23:59 mouth. Medi jonatan 0.1 MG 00 :00 Center tablet senna-docus 2021-2021- No 2{tbl} Take [address] ate 6-14 09-12 tablets by [facility] (SENOKOT S) 00:00: 23:59 mouth. Med ical 8.6-50 mg 00 :00 Center per tablet cloNIDine 2021-2021- No .1mg Take 0.[address] [facility] HCL 6-14 09-12 mg [facility] (CATAPRES) 00:00: 23:59 mouth. Medi jonatan 0.1 MG 00 :00 Center tablet senna-docus 2021- No 2{tbl} Take [address] ate 6-14 09-12 tablets by [facility] (SENOKOT S) 00:00: 23:59 mouth. Med ical 8.6-50 mg 00 :00 Center per tablet cloNIDine 2021-2021- No .1mg Take 0.[address] [facility] HCL 6-14 09-12 [facility] (CATAPRES) 00:00: 23:59 mouth. Medi jonatan 0.1 MG 00 :00 Center tablet senna-docus 2021- No 2{tbl} Take [address] ate 6-14 09-12 tablets by [facility] (SENOKOT S) 00:00: 23:59 mouth. Med ical 8.6-50 mg 00 :00 Center per tablet cloNIDine 2021-2021- No .1mg Take 0.[address] [facility] HCL 6-14 09-12 mg [facility] (CATAPRES) 00:00: 23:59 mouth. Medi jonatan 0.1 MG 00 :00 Center tablet senna-docus 2021- No 2{tbl} Take [address] ate 6-14 09-12 tablets by [facility] (SENOKOT S) 00:00: 23:59 mouth. Med ical 8.6-50 mg 00 :00 Center per tablet cloNIDine 2021-2021- No .1mg Take 0.[address] [facility] [facility] HCL 6-14 09-12 mg by [facility] (CATAPRES) 00:00: 23:59 mouth. Medi jonatan 0.1 MG 00 :00 Center tablet senna-docus 2021-2021- No 2{tbl} Take [address] ate 6-14 09-12 tablets by [facility] (SENOKOT S) 00:00: 23:59 mouth. Med ical 8.6-50 mg 00 :00 Center per tablet sucralfate 2021- Yes 1g Q.25D Take [address] [facility] [address] [facility] (CARAFATE) 6-13 by mouth 4 Chrissie es 1 gram 00:00: (four) Medical tablet 00 times Center daily. sucralfate Yes 1g Q.25D Take 1 g [...] Center daily. lithium 300 2022-0 Yes 300mg [id number] Take [address] [facility] MG capsule 5-27 [id number] mg by Am[facility] kes 00:00: 3D mouth 3 Medical 00 (three) Center times daily. lithium 300 2022-0 Yes 300mg Q.[id number] Take [address] [facility] MG capsule 5-27 [id number] mg by [facility] kes 00:00: 3D mouth 3 Medical 00 (three) Center times daily. lithium 300 2022-0 Yes 300mg Q.[id number] Take [address] MG capsule 5-27 [id number] mg by [facility] kes 00:00: 3D mouth 3 Medical 00 (three) Center times daily. lithium 300 2022-0 Yes 300mg Q.[id number] Take [address] MG capsule 5-27 [id number] mg by [facility] kes 00:00: 3D mouth 3 Medical 00 (three) Center times daily. lithium 300 2022-0 Yes 300mg Q.[id number] Take [address] MG capsule 5-27 [id number] mg by [facility] kes 00:00: 3D mouth 3 Medical 00 (three) Center times daily. lithium 300 2021-0 Yes 300mg Q.[id number] Take [address] MG capsule 5-27 [id number] mg by [facility] kes 00:00: 3D mouth 3 Medical 00 (three) Center times daily. lithium 300 2021-0 Yes 300mg Q.[id number] Take [address] MG capsule 5-27 [id number] mg by [facility] kes 00:00: 3D mouth [...] times Center daily. propranoloL 2021-0 Yes 40mg Q.[id number] Take [address] [facility] (INDERAL) 5-25 [id number] by mouth 3 [facility] 40 MG 16:23: 3D (three) Medical tablet 12 times Center daily. traZODone 2021-0 Yes 100mg QD Take [address] [facility] (DESYREL) 5-25 [facility] 100 MG 16:23: mouth Medical tablet 12 nightly. Center amitriptyli 2021-0 Yes 10mg QD Take 10 [...] 10 MG 16:23: nightly. Medical tablet 12 [place] primidone 0 Yes 50mg Q.25D Take [address] (MYSOLINE) 5-25 by mouth 4 Chrissie es 50 MG 16:23: (four) Medical tablet 12 times Center daily. propranoloL 2021-0 Yes 40mg Q.[id number] Take [address] [facility] (INDERAL) 5-25 [id number] by mouth 3 [facility] 40 MG 16:23: 3D (three) Medical tablet 12 times Center daily. traZODone 2021-0 Yes 100mg QD Take [address] (DESYREL) 5-25 [facility] by [facility] 100 MG 16:23: mouth Medical tablet 12 nightly. [place] amitriptyli 0 Yes 10mg QD Take [address] [facility] ne (ELAVIL) 5-25 by mouth [facility] 10 MG 16:23: nightly. Medical tablet 12 [place] benztropine 2021-0 Yes 2mg Q.5D Take 2 [...] 15 MG 16:23: nightly. Medical tablet 12 [place] OLANZapine 0 Yes 10mg QD Take [address] (ZYPREXA) 5-25 [facility] 10 MG 16:23: nightly. Medical tablet 12 [place] primidone 2021-0 Yes 50mg Q.25D Take [address] [facility] (MYSOLINE) 5-25 by mouth 4 Chrissie es 50 MG 16:23: (four) Medical tablet 12 times Center daily. propranoloL 2021-0 Yes 40mg Q.[id number] Take [address] [facility] (INDERAL) 5-25 [id number] by mouth 3 [facility] 40 MG 16:23: 3D (three) Medical tablet 12 times Center daily. traZODone 0 Yes 100mg QD Take [address] [facility] (DESYREL) 5-25 mg by [facility] 100 MG 16:23: mouth Medical tablet 12 nightly. [place] amitriptyli 0 Yes 10mg QD Take [address] [facility] ne (ELAVIL) 5-25 by mouth [facility] 10 MG 16:23: nightly. Medical tablet 12 [place] benztropine 0 Yes 2mg Q.5D Take 2 [...] 15 MG 16:23: nightly. Medical tablet 12 [place] OLANZapine 2021-0 Yes 10mg QD Take [address] (ZYPREXA) 5-25 by mouth [facility] 10 MG 16:23: nightly. Medical tablet 12 [place] primidone 2021-0 Yes 50mg Q.25D Take [address] (MYSOLINE) 5-25 by mouth 4 Chrissie es 50 MG 16:23: (four) Medical tablet 12 times Center daily. propranoloL 2022-0 Yes 40mg Q.[id number] Take [address] [facility] (INDERAL) 5-25 [id number] by mouth 3 [facility] 40 MG 16:23: 3D (three) Medical tablet 12 times Center daily. traZODone 2022-0 Yes 100mg QD Take [address] [facility] (DESYREL) 5-25 mg by [facility] 100 MG 16:23: mouth Medical tablet 12 nightly. Center amitriptyli 2-0 Yes 10mg QD Take [address] [facility] (ELAVIL) 5-25 by mouth [facility] 10 MG 16:23: nightly. Medical tablet 12 [facility] benztropine 2-0 Yes 2mg Q.5D Take 2 mg C [...] Medica l 12 times Center daily. amitriptyli 2-0 Yes 10mg QD Take [address] [facility] (ELAVIL) 5-25 by mouth [facility] 10 MG 16:23: nightly. Medical tablet 12 [facility] benztropine 2022-0 Yes 2mg Q.5D Take 2 mg C [...] 15 MG 16:23: nightly. Medical tablet 12 [place] OLANZapine 2021-0 Yes 10mg QD Take [address] (ZYPREXA) 5-25 by mouth [facility] 10 MG 16:23: nightly. Medical tablet 12 [place] primidone 2021-0 Yes 50mg Q.25D Take [address] (MYSOLINE) 5-25 by mouth 4 Chrissie es 50 MG 16:23: (four) Medical tablet 12 times Center daily. propranoloL 2021-0 Yes 40mg Q.[id number] Take [address] [facility] (INDERAL) 5-25 [id number] by mouth 3 [facility] 40 MG 16:23: 3D (three) Medical tablet 12 times Center daily. traZODone 2021-0 Yes 100mg QD Take [address] [facility] [address] (DESYREL) 5-25 mg by [facility] 100 MG 16:23: mouth Medical tablet 12 nightly. [place] mirtazapine 0 Yes 15mg QD Take [address] [facility] (REMERON) 5-25 by mouth [facility] 15 MG 16:23: nightly. Medical tablet 12 [place] OLANZapine 0 Yes 10mg QD Take [address] (ZYPREXA) 5-25 by mouth [facility] 10 MG 16:23: nightly. Medical tablet 12 [place] primidone 0 Yes 50mg Q.25D Take [address] (MYSOLINE) 5-25 by mouth 4 Chrissie es 50 MG 16:23: (four) Medical tablet 12 times Center daily. propranoloL 2021-0 Yes 40mg Q.[id number] Take [address] [facility] (INDERAL) 5-25 [id number] by mouth 3 [facility] 40 MG 16:23: 3D (three) Medical tablet 12 times Center daily. traZODone 2021-0 Yes 100mg QD Take [address] [facility] (DESYREL) 5-25 mg by [facility] 100 MG 16:23: mouth Medical tablet 12 nightly. [place] amitriptyli 2021-0 Yes 10mg QD Take 10 [...] 15 MG 16:23: nightly. Medical tablet 12 [place] OLANZapine 2021-0 Yes 10mg QD Take [address] (ZYPREXA) 5-25 by mouth [facility] 10 MG 16:23: nightly. Medical tablet 12 [place] primidone 2021-0 Yes 50mg Q.25D Take [address] (MYSOLINE) 5-25 by mouth 4 Chrissie es 50 MG 16:23: (four) Medical tablet 12 times Center daily. propranoloL 2021-0 Yes 40mg Q.[id number] Take [address] [facility] (INDERAL) 5-25 [id number] by mouth 3 [facility] 40 MG 16:23: 3D (three) Medical tablet 12 times Center daily. traZODone 2021-0 Yes 100mg QD Take [address] [facility] (DESYREL) 5-25 mg by [facility] 100 MG 16:23: mouth Medical tablet 12 nightly. [place] amitriptyli 2021-0 Yes 10mg QD Take [address] [facility] (ELAVIL) 5-25 by mouth [facility] 10 MG 16:23: nightly. Medical tablet 12 [place] benztropine 2021-0 Yes 2mg Q.5D Take 2 [...] Medica l 12 times Center daily. polyethylen 2021-2021- No 17g QD Take [address] [facility] e glycol 07-30 by mouth [facility] (GLYCOLAX) 00:00: 23:59 daily for M edical 17 00 :00 5 days. Center gram/dose powder polyethylen 2021-2021- No 17g QD Take [address] [facility] e glycol 07-30 by mouth [facility] (GLYCOLAX) 00:00: 23:59 daily for M edical 17 00 :00 5 days. Center gram/dose powder polyethylen 2021-2021- No 17g QD Take 17 g [facility] [...] Take [address] [facility] e glycol 07-30- by mouth [facility] (GLYCOLAX) 00:00: 23:59 daily for M edical 17 00 :00 5 days. Center gram/dose powder polyethylen 2021-0 2- No 17g QD Take [address] [facility] e glycol 07-30- by mouth [facility] (GLYCOLAX) 00:00: 23:59 daily for M edical 17 00 :00 5 days. Center gram/dose powder polyethylen 2021-0 2021- No 17g QD Take [address] [facility] e glycol 07-30- by mouth [facility] (GLYCOLAX) 00:00: 23:59 daily for M edical 17 00 :00 5 days. Center gram/dose powder acetaminoph acetaminoph No acetaminop [facility] en 300 en 300 hen 300 Medical mg-codeine mg-codeine mg-codeine 30 mg/12.5 30 mg/12.5 30 mg/12.5 mL (12.5 mL (12.5 mL (12.5 mL) oral mL) oral mL) oral solution solution solution GIVE 12.5ML GIVE 12.5ML GIVE VIA GTUBE VIA GTUBE 12.5ML VIA EVERY 6 EVERY 6 GTUBE HOURS FOR HOURS FOR EVERY 6 PAIN PAIN HOURS FOR RELATED TO RELATED TO PAIN SACRAL SACRAL RELATED TO ULCER ULCER SACRAL ULCER acetaminoph acetaminoph No 2 Q6H acetaminop [facility] en 325 mg en 325 mg hen 325 mg Medical tablet Take tablet Take tablet 2 tablets 2 tablets Take 2 every 6 every 6 tablets hours by hours by every 6 oral route oral route hours by as needed. as needed. oral route as needed. bisacodyl bisacodyl No 1suppos Q1D bisacodyl [facility] 10 mg 10 mg itor(y/ 10 mg Medical rectal rectal ies) rectal suppository suppository suppositor Insert 1 Insert 1 y Insert 1 suppository suppository suppositor every day every day y every by rectal by rectal day by route as route as rectal needed. needed. route as needed. docusate docusate No 10mL Q1D docusate Jenni via sodium 50 sodium 50 sodium 50 Medical mg/5 mL mg/5 mL mg/5 mL oral liquid oral liquid oral Take 10 mL Take 10 mL liquid every day every day Take 10 mL by oral by oral every day route. route. by oral route. enoxaparin enoxaparin No enoxaparin [facility] 40 mg/0.4 40 mg/0.4 40 mg/0.4 Medical mL mL mL subcutaneou subcutaneou subcutaneo s syringe s syringe us syringe INJECT 1 INJECT 1 INJECT 1 SYRINGE SYRINGE SYRINGE (40MG) (40MG) (40MG) SUBCUTANEOU SUBCUTANEOU SUBCUTANEO SLY EVERY SLY EVERY USLY EVERY DAY DAY DAY ferrous ferrous No 5mL Q1D ferrous [facility] sulfate 300 sulfate 300 sulfate Medical mg (60 mg mg (60 mg 300 mg (60 iron)/5 mL iron)/5 mL mg iron)/5 oral liquid oral liquid mL oral Take 5 mL Take 5 mL liquid every day every day Take 5 mL by oral by oral every day route. route. by oral route. Fleet Enema Fleet Enema No Fleet [facility] 19 gram-7 19 gram-7 Enema 19 M edical gram/118 mL gram/118 mL gram-7 Insert 1 Insert 1 gram/118 bottle bottle mL Insert rectally rectally 1 bottle FOR severe FOR severe rectally constipatio constipatio FOR severe n n constipati DIRECTED DIRECTED on DIRECTED ipratropium ipratropium No 3mL Q4H ipratropiu [facility] 0.5 0.5 m 0.5 Medical mg-albutero mg-albutero mg-albuter l 3 mg (2.5 l 3 mg (2.5 ol 3 mg mg base)/3 mg base)/3 (2.5 mg mL mL base)/3 mL nebulizatio nebulizatio nebulizati n soln n soln on soln Inhale 3 mL Inhale 3 mL Inhale 3 every 4 every 4 mL every 4 hours by hours by hours by nebulizatio nebulizatio nebulizati n route as n route as on route needed. needed. as needed. lactulose lactulose No 30mL TID lactulose [facility] 10 gram/15 10 gram/15 10 gram/15 Medical mL (15 mL) mL (15 mL) mL (15 mL) oral oral oral solution solution solution Take 30 mL Take 30 mL Take 30 mL 3 times a 3 times a 3 times a day by oral day by oral day by route as route as oral route needed. needed. as needed. lansoprazol lansoprazol No 1capsul Q1D lansoprazo [facility] e 30 mg e 30 mg e(s) le 30 mg Medic al capsule,del capsule,del capsule,de ayed ayed layed release release release Take 1 Take 1 Take 1 capsule capsule capsule every day every day every day by oral by oral by oral route. route. route. levetiracet levetiracet No 7.5mL BID levetirace [facility] am 100 am 100 black 100 Medical mg/mL oral mg/mL oral mg/mL oral solution solution solution Take 7.5 mL Take 7.5 mL Take 7.5 twice a day twice a day mL twice a by oral by oral day by route. route. oral route. levofloxaci levofloxaci No levofloxac [facility] n 750 mg n 750 mg in 750 mg Me dical tablet TAKE tablet TAKE tablet 1 TABLET BY 1 TABLET BY TAKE 1 MOUTH EVERY MOUTH EVERY TABLET BY DAY DAY MOUTH EVERY DAY lorazepam lorazepam No 1 BID lorazepam [facility] 0.5 mg 0.5 mg 0.5 mg Medical tablet Take tablet Take tablet 1 tablet 1 tablet Take 1 twice a day twice a day tablet by oral by oral twice a route as route as day by needed for needed for oral route 14 days. 14 days. as needed for 14 days. lorazepam 2 lorazepam 2 No lorazepam [facility] mg/mL mg/mL 2 mg/mL Medical injection injection injection solution solution solution GIVE 0.5ML GIVE 0.5ML GIVE 0.5ML (1MG) IM (1MG) IM (1MG) IM NEEDED FOR NEEDED FOR NEEDED SEIZURE. SEIZURE. FOR MAY REPEAT MAY REPEAT SEIZURE. 0.5ML IN 15 0.5ML IN 15 MAY REPEAT MINUTES IF MINUTES IF 0.5ML IN SEIZURE SEIZURE 15 MINUTES PERSISTS. PERSISTS. IF SEIZURE PERSISTS. olanzapine olanzapine No olanzapine [facility] 10 mg 10 mg 10 mg Medical tablet tablet tablet Pro-Stat Pro-Stat No 30mL BID Pro-Stat Jenni via AWC 17 AWC 17 AWC 17 Medical gram-100 gram-100 gram-100 kcal/30 mL kcal/30 mL kcal/30 mL oral liquid oral liquid oral Take 30 mL Take 30 mL liquid twice a day twice a day Take 30 mL by oral by oral twice a route. route. day by oral route. Senna Senna No Senna [facility] Laxative Laxative Laxative Med ical 8.6 mg 8.6 mg 8.6 mg tablet TAKE tablet TAKE tablet 2 TABLETS 2 TABLETS TAKE 2 (17.2mg) BY (17.2mg) BY TABLETS MOUTH TWICE MOUTH TWICE (17.2mg) DAILY DAILY BY MOUTH NEEDED FOR NEEDED FOR TWICE CONSTIPATIO CONSTIPATIO DAILY N N NEEDED FOR CONSTIPATI ON sucralfate sucralfate No sucralfate [facility] 1 gram 1 gram 1 gram Medical tablet TAKE tablet TAKE tablet 1 TABLET BY 1 TABLET BY TAKE 1 MOUTH FOUR MOUTH FOUR TABLET BY TIMES DAILY TIMES DAILY MOUTH FOUR ON AN EMPTY ON AN EMPTY TIMES STOMACH STOMACH DAILY ON AN EMPTY STOMACH tamsulosin tamsulosin No 1capsul Q1D tamsulosin [facility] 0.4 mg 0.4 mg e(s) 0.4 mg Medical capsule capsule capsule Take 1 Take 1 Take 1 capsule capsule capsule every day every day every day by oral by oral by oral route. route. route. Vitamin C Vitamin C No 5mL BID Vitamin C [facility] 500 mg/5 mL 500 mg/5 mL 500 mg/5 Medical oral liquid oral liquid mL oral Take 5 mL Take 5 mL liquid twice a day twice a day Take 5 mL by oral by oral twice a route. route. day by oral route. Vital Signs Vital Name Observation Time Observation Value Comments Source BP Diastolic 2022-03-16 00:00:00 68 mm[Hg] [facility] Height 2022-03-16 00:00:00 70 [in_i] [facility] BP Systolic 2022-03-16 00:00:00 109 mm[Hg] [facility] Body Weight 2022-03-16 00:00:00 1492 [oz_av] [facility] HEIGHT 2022-01-12 15:34:00 162.6 cm WEIGHT 2022-01-12 [...] kg Systolic blood 2022-01-12 17:37:00 114 mm[Hg] [facility] Diastolic blood 2022-01-12 17:37:00 74 mm[Hg] [facility] Heart rate 2022-01-12 17:37:00 60 /min [facility] Respiratory rate 2022-01-12 17:37:00 16 /min [facility] Oxygen saturation in 2022-01-12 17:37:00 98 /min [facility] Arterial blood by Medical Ce nter Pulse oximetry Body temperature 2022-01-12 15:34:00 36.67 Darling [facility] Body height 2022-01-12 15:34:00 162.6 cm [facility] Body weight 2022-01-12 15:34:00 54.432 kg [facility] BMI 2022-01-12 15:34:00 20.60 kg/m2 [facility] Systolic blood 2021-12-23 11:21:00 89 mm[Hg] [facility] pressure Diastolic blood 2021-12-23 11:21:00 56 mm[Hg[facility] 2021-12-23 11:21:00 64 /min [facility] Respiratory rate 2021-12-23 11:21:00 18 /min Alma is [facility] Body height 2021-12-23 11:21:00 167.6 cm [facility] Body weight 2021-12-23 11:21:00 51.71 kg [facility] [place] BMI 2021-12-23 11:21:00 18.40 kg/m2 [facility] Body temperature 2021-12-16 11:10:00 37.06 Darling [facility] Oxygen saturation in 2021-12-16 11:10:00 97 /min [facility] Arterial blood by Pulse oximetry Respiratory rate 2021-07-30 18:40:00 20 /min [facility] Body height 2021-07-30 18:40:00 177.8 cm [facility] Body weight 2021-07-30 18:40:00 54.1 kg [facility] BMI 2021-07-30 18:40:00 17.11 kg/m2 [facility] Oxygen saturation in 2021-07-30 18:40:00 100 /min [facility] Arterial blood by Medical Ce nter Pulse oximetry Systolic blood 2021-07-30 18:40:00 102 mm[Hg] [facility] Diastolic blood 2021-07-30 18:40:00 60 mm[Hg] [facility] Heart rate 2021-07-30 18:40:00 56 /min [facility] Body temperature 2021-07-30 18:40:00 36.61 Darling [facility] Procedures Procedure Date / Time Performed Performing Clinician Sourwarren e CBC W/PLT COUNT & AUTO 2022-01-12 16:35:[address] [place] [address] [facility] COMPREHENSIVE METABOLIC 2022-01-12 16:35:[address] [place] [address] [facility] B-TYPE NATRIURETIC FACTOR 2022-01-12 16:35:[address] [facility] CBC W/PLT COUNT & AUTO 2022-01-12 16:35:[address] [place] [address] [facility] CBC (WITHOUT 2021-12-23 12:16:00 Annie Moon ealth DIFFERENTIAL) COMPREHENSIVE METABOLIC 2021-12-23 12:16:00 Annie Moon [facility] PANEL HGB/HCT 2021-12-15 15:09:00 Ruthy Matthews [facility] XRAY MODIFIED BARIUM 2021-12-15 11:40:00 Ruthy Matthewsi s Health SWALLOW W CINE/VIDEO (MBS) GLUCOSE POC 2021-12-15 10:53:00 Elida Peter LIVER PROFILE 2021-12-15 04:50:00 Talha Kohli h [place] [facility] BASIC METABOLIC PANEL 2021-12-15 04:50:00 Talha Kohli [facility] [place] P CBC/DIFF 2021-12-15 04:50:00 Talha Kohli h [place] CBC 2021-12-15 04:50:00 Talha Kohli [facility] h [place] P DIFFERENTIAL, MANUAL-WA 2021-12-15 04:50:00 Mutucamelia, [facility] [place] P XRAY CHEST 1 VIEW 2021-12-14 14:06:00 Ruthy Matthews ealt 12 LEAD EKG 2021-12-14 14:05:19 Ruthy Matthews [facility] lt GLUCOSE POC 2021-12-14 14:00:00 Elida Peter [facility] th PT/INR/PTT 2021-12-14 13:44:00 Tera Quijano h [place] PRO 2021-12-14 13:44:00 QuijanoTera wilson alth COAG STUDIES INTERP 2021-12-14 13:44:00 Tera Quijano REPORT (BKR) CONSULT CLINICAL CASE 2021-12-14 12:14:27 Seun [facility] MANAGEMENT (RN/SW) [place] P CBC/DIFF 2021-12-14 09:43:00 Ruthy Matthews [facility] CBC 2021-12-14 09:43:00 Ruthy Matthews a lt DIFFERENTIAL, MANUAL-[facility] 2021-12-14 09:43:00 Ruthy Matthews [facility] LITHIUM 2021-12-14 08:35:00 Ruthy Matthews [facility] LIVER PROFILE 2021-12-14 04:28:00 Talha Kohli [place] [facility] BASIC METABOLIC PANEL 2021-12-14 04:28:00 Seun [facility] [place] P CBC/DIFF 2021-12-14 04:28:00 [facility] [place] [facility] 2021-12-14 04:28:00 [facility] [place] [facility] RBC MORPHOLOGY-[facility] 2021-12-14 04:28:[address] [facility] alth Malissa P LITHIUM 2021-12-13 21:15:00 Mutucumarana, [facility] [place] P COMMODE AT BEDSIDE 2021-12-13 08:17:33 Elida Peter H ealth CBC 2021-12-13 04:53:00 [facility] [place] [facility] LIVER PROFILE 2021-12-13 04:53:00 [facility], [facility] [place] [facility] BASIC METABOLIC PANEL 2021-12-13 04:53:00 Mutucumarana, [facility] [place] P CBC/DIFF 2021-12-13 04:53:00 Mutucumarana, [facility] [place] P LIVER PROFILE 2021-12-12 04:26:00 [facility]ana, [facility] [place] [facility] SEQUENTIAL COMPRESSION 2021-12-12 00:42:25 Elida Peter [facility] CBC/DIFF 2021-12-11 04:51:00 [facility]ana, [facility] [place] [facility] BASIC METABOLIC PANEL 2021-12-11 04:51:00 Mutucumarana, [facility] [place] P LIVER PROFILE 2021-12-11 04:51:00 [facility]ana, [facility] [place] [facility] CBC 2021-12-11 04:51:00 [facility]ana, [facility] [place] [facility] RETIC COUNT 2021-12-11 04:51:00 Quijano, Tera A [facility] U/S ABDOMEN LIMITED 2021-12-10 08:50:00 Ruthy Matthews [facility] CBC/DIFF 2021-12-10 05:32:00 Mut[facility]umarana, [facility] [place] [facility] BASIC METABOLIC PANEL 2021-12-10 05:32:00 Mutucumarana, [facility] [place] P LIVER PROFILE 2021-12-10 05:32:00 Mut[facility]umarana, [facility] [place] [facility] CBC 2021-12-10 05:32:00 Mutucumarana, [facility] h Mal[place] P CT FEMUR W CONTRAST 2021-12-09 16:25:48 Ruthy Matthews [facility] CBC/DIFF 2021-12-09 04:35:00 Mutucumarana, [facility] [place] [facility] BASIC METABOLIC PANEL 2021-12-09 04:35:00 Mutucumarana, [facility] [place] P LIVER PROFILE 2021-12-09 04:35:00 Mut[facility]umarana, [facility] [place] [facility] CBC 2021-12-09 04:35:00 Mutucumarana, [facility] Mal[place] P VIT D, 25-HYDROXY 2021-12-09 04:35:00 ByronRamonajerome [facility] ealth COMMODE AT BEDSIDE 2021-12-08 21:45:09 Elida Peter [facility] [place] CBC/DIFF 2021-12-08 05:03:00 Mutucumarana, [facility] [place] P BASIC METABOLIC PANEL 2021-12-08 05:03:00 Mutucumarana, [facility] [place] P LIVER PROFILE 2021-12-08 05:03:00 Mutucumarana, [facility] h [place] P CBC 2021-12-08 05:03:00 Mutucumarwillie, [facility] h [place] P INFUSION PUMP 2021-12-07 18:01:[address] [facility] CBC/DIFF 2021-12-07 05:21:00 Compa Matthewsyoseftaniya Merged with [facility] BASIC METABOLIC PANEL 2021-12-07 05:21:00 Ruthy Matthews [facility] LIVER PROFILE 2021-12-07 05:21:[address] [facility] LACTATE DEHYDROGENASE 2021-12-07 05:21:00 Elida Peter [facility] HAPTOGLOBIN 2021-12-07 05:21:[address] [facility] AMMONIA 2021-12-07 05:21:[address] [facility] CBC 2021-12-07 05:21:00 Ruthy Matthews [facility] with [facility] PT/INR/PTT 2021-12-06 05:02:00 Ruthy Matthews Merged with [facility] CT ABDOMEN AND PELVIS 2021-12-05 16:10:17 Ruthy Matthews [facility] CONTRAST CT CHEST W CONTRAST 2021-12-05 16:10:17 Michael Giraldo ealt PATHOLOGIST REVIEW 2021-12-05 04:08:[address] [facility] SAVE SMEAR/ NOT FOR PATH 2021-12-05 04:08:00 Tera Quijano [facility] Health REVIEW LEAD, WHOLE BLOOD (ADULT) 2021-12-04 11:14:00 Ruthy Matthews [facility] DIRECT ANTIGLOBULIN TEST 2021-12-04 10:15:[address] [facility] BETZY/ DIRECT MARINA [place] Martin HIV AG/AB COMBO ROUTINE 2021-12-04 10:15:00 Seun [facility] SCREENING [place] Martin HEPATITIS PANEL 2021-12-04 10:15:00 [facility] [place] HEMOGLOBIN A1C 2021-12-04 04:06:00 Seun [facility] [place] Martin LACTATE DEHYDROGENASE 2021-12-04 04:06:00 Seun [facility] [place] CBC/DIFF 2021-12-04 04:06:00 Ruthy Matthews Merged with [facility] BASIC METABOLIC PANEL 2021-12-04 04:06:00 Ruthy Matthews [facility] CBC 2021-12-04 04:06:00 Ruthy Matthews [facility]ed with [facility] RETIC COUNT 2021-12-04 04:06:00 [facility] [place] SAVE SMEAR/ NOT FOR PATH 2021-12-04 04:06:[address] [facility] REVIEW Malissa P FREE T4 2021-12-04 04:06:00 Ruthy Matthews [facility] with [facility] URINALYSIS W/REFLEX TO 2021-12-03 16:54:00 Seun [facility] URINE CULTURE [place] Martin URINALYSIS 2021-12-03 16:54:00 [facility] [place] URINE CULTURE COLLECTION 2021-12-03 16:54:[address] [facility] KIT [place] P NUTRITION CONSULT 2021-12-03 07:40:36 Talha Kohli [facility] ASSESSMENT [place] P IRON PROFILE 2021-12-03 04:44:00 Mutucumarana, [facility] h [place] P CBC/DIFF 2021-12-03 04:44:00 Mutucumarana, [facility] h [place] P CBC 2021-12-03 04:44:00 Mutucumarana, [facility] [place] P THYROID STIMULATING 2021-12-03 04:44:00 Seun, [facility] ealth HORMONE (TSH) [place]issa P VITAMIN B12 2021-12-03 04:44:00 Mutucumarana, [facility] [place] P FOLIC ACID 2021-12-03 04:44:00 Mutucumarana, [facility] [place] P FREE T4 2021-12-03 04:44:00 [facility] HAPTO[facility]IN 2021-12-03 04:44:00 Mutucumarana, [facility] [place] P SAVE SMEAR/ NOT FOR PATH 2021-12-03 04:44:00 Mutucumarana, [facility] REVIEW [place] P SEQUENTIAL COMPRESSION 2021-12-03 03:19:55 Mutjoseumarwillie, [facility] PUMP [place] P SARS-COV-2, FLU A/B, RSV 2021-12-03 01:06:00 [facility] CORONAVIRUS, COVID-19, 2021-12-03 01:06:00 Salvador Judith [facility] YOSHI CREATININE POC 2021-12-02 20:31:00 Talha Gutierrez K[facility] BMP POC 2021-12-02 20:31:00 [facility] CBC/DIFF 2021-12-02 20:17:00 Marino Crooks [facility] CBC 2021-12-02 20:17:00 Marino Crooks [facility] LITHIUM 2021-12-02 20:17:[address] [facility] COMPREHENSIVE METABOLIC 2021-12-02 20:17:00 Seun [facility] PANEL Malissa P FERRITIN 2021-12-02 20:17:[address] HEAD W/O CONTRAST 2021-12-02 18:26:[address] [facility] [address] ABDOMEN/PELVIS WITH IV 2021-07-30 20:25:00 Brii Campbell [facility] CBC W/PLT COUNT & AUTO 2021-07-30 19:37:00 Brii Campbell [facility] BASIC METABOLIC PANEL (7) 2021-07-30 19:37:00 Brii Campbell [facility] PROTHROMBIN TIME/INR 2021-07-30 19:37:00 Brii Campbell [facility] CBC W/PLT COUNT & AUTO 2021-07-30 19:37:00 Brii Campbell [facility] Plan of Care Planned Activity Planned Date Details Comments Source Future Scheduled Test 2025-07-17 DTAP/TDAP/TD [facility] 00:00:00 VACCINES (2 - Td or Medical Center Tdap) [code = DTAP/TDAP/TD VACCINES (2 - Td or Tdap)] Future Scheduled Test 2025-07-17 DTAP/TDAP/TD [facility] 00:00:00 VACCINES (2 - Td or Medical Center Tdap) [code = DTAP/TDAP/TD VACCINES (2 - Td or Tdap)] Future Scheduled Test 2025-07-17 DTAP/TDAP/TD [facility] 00:00:00 VACCINES (2 - Td or Medical Center Tdap) [code = DTAP/TDAP/TD VACCINES (2 - Td or Tdap)] Future Scheduled Test 2025-07-17 DTAP/TDAP/TD [facility] 00:00:00 VACCINES (2 - Td or Medical Center Tdap) [code = DTAP/TDAP/TD VACCINES (2 - Td or Tdap)] Future Scheduled Test 2025-07-17 DTAP/TDAP/TD [facility] 00:00:00 VACCINES (2 - Td or Medical Center Tdap) [code = DTAP/TDAP/TD VACCINES (2 - Td or Tdap)] Future Scheduled Test 2025-07-17 DTAP/TDAP/TD [facility] 00:00:00 VACCINES (2 - Td or Medical Center Tdap) [code = DTAP/TDAP/TD VACCINES (2 - Td or Tdap)] Future Scheduled Test 2025-07-17 DTAP/TDAP/TD [facility] 00:00:00 VACCINES (2 - Td or Medical Center Tdap) [code = DTAP/TDAP/TD VACCINES (2 - Td or Tdap)] Future Scheduled Test 2022-04-03 [facility] Seasonal (>/= 19 yrs) [code = IMM Influenza Seasonal (>/= 19 yrs)] Future Scheduled Test 2022-04-03 IMM [facility]:00 Seasonal (>/= 19 yrs) [code = IMM Influenza Seasonal (>/= 19 yrs)] Future Scheduled Test 2022-04-03 [facility] 00:00:00 Seasonal (>/= 19 yrs) [code = IMM Influenza Seasonal (>/= 19 yrs)] Future Scheduled Test 2022-04-03 [facility] Influenza [facility] 00:00:00 Seasonal (>/= 19 yrs) [code = IMM Influenza Seasonal (>/= 19 yrs)] Future Scheduled Test 2022-04-03 IMM Influenza [facility] 00:00:00 Seasonal (>/= 19 yrs) [code = IMM Influenza Seasonal (>/= 19 yrs)] Future Scheduled Test 2022-04-03 [facility] Influenza [facility] Health 00:00:00 Seasonal (>/= 19 yrs) [code = IMM Influenza Seasonal (>/= 19 yrs)] Future Scheduled Test 2022-04-03 [facility] 00:00:00 Seasonal (>/= 19 yrs) [code = IMM Influenza Seasonal (>/= 19 yrs)] Future Scheduled Test 2022-03-04 [facility]ZA VACCINE [facility] 00:00:00 (#1) [code = Medical Center INFLUENZA VACCINE (#1)] Future Scheduled Test 2022-03-04 [facility] [facility] [facility] 00:00:00 (#1) [code = Medical Center INFLUENZA VACCINE (#1)] Future Scheduled Test 2022-03-04 [facility] V[facility] [facility] 00:00:00 (#1) [code = Medical Center INFLUENZA VACCINE (#1)] Future Scheduled Test 2022-03-04 [facility] V[facility] [facility] 00:00:00 (#1) [code = Medical Center INFLUENZA VACCINE (#1)] Future Scheduled Test 2022-03-04 [facility] V[facility] [facility] 00:00:00 (#1) [code = Medical Center INFLUENZA VACCINE (#1)] Future Scheduled Test 2022-03-04 [facility]ZA VACC[address] [facility] 00:00:00 (#1) [code = Medical Center INFLUENZA VACCINE (#1)] Future Scheduled Test 2022-03-04 [facility]ZA VACC[address] [facility] 00:00:00 (#1) [code = Medical Center INFLUENZA VACCINE (#1)] Future Scheduled Test 2022-03-04 [facility]ZA VACC[address] [facility] 00:00:00 (#1) [code = Medical Center INFLUENZA VACCINE (#1)] Future Scheduled Test 2022-03-04 [facility]ZA V[facility] [facility] 00:00:00 (#1) [code = Medical Center INFLUENZA VACCINE (#1)] Future Scheduled Test 2022-03-04 [facility]ZA V[facility] [facility] 00:00:00 (#1) [code = Medical Center INFLUENZA VACCINE (#1)] Future Scheduled Test 2022-03-04 [facility] V[facility] [facility] 00:00:00 (#1) [code = Medical Center INFLUENZA VACCINE (#1)] Future Scheduled Test 2022-03-04 [facility]ZA VACC[address] [facility] 00:00:00 (#1) [code = Medical Center INFLUENZA VACCINE (#1)] Future Scheduled Test 2022-03-04 IN[facility]ZA VACC[address] [facility] 00:00:00 (#1) [code = Medical Center INFLUENZA VACCINE (#1)] Future Scheduled Test 2022-03-04 INFL[facility]ZA VACC[address] [facility] 00:00:00 (#1) [code = Medical Center INFLUENZA VACCINE (#1)] Future Scheduled Test 2022-03-03 INFLUENZA VACCINE [facility] 12:27:23 [code = INFLUENZA VACCINE] Future Scheduled Test 2022-03-03 HEPATITIS B VACCINES [facility] 12:27:23 (1 of 3 - 3-dose series) [code = HEPATITIS B VACCINES (1 of 3 - 3-dose series)] Future Scheduled Test 2022-03-03 COVID-19 VACCINE [facility] 12:27:23 (#1) [code = COVID-19 VACCINE (#1)] Future Scheduled Test 2022-03-03 INFLUENZA VACCINE [facility] 12:27:23 [code = INFLUENZA VACCINE] Future Scheduled Test 2022-03-03 HEPATITIS B VACCINES [facility] 12:27:23 (1 of 3 - 3-dose series) [code = HEPATITIS B VACCINES (1 of 3 - 3-dose series)] Future Scheduled Test 2022-03-03 COVID-19 VACCINE [facility] 12:27:23 (#1) [code = COVID-19 VACCINE (#1)] Future Scheduled Test 2022-03-03 INFLUENZA VACCINE [facility] 12:27:23 [code = INFLUENZA VACCINE] Future Scheduled Test 2022-03-03 HEPATITIS B VACCINES [facility] 12:27:23 (1 of 3 - 3-dose series) [code = HEPATITIS B VACCINES (1 of 3 - 3-dose series)] Future Scheduled Test 2022-03-03 COVID-19 VACCINE [facility] 12:27:23 (#1) [code = COVID-19 VACCINE (#1)] Future Scheduled Test 2022-03-03 INFLUENZA VACCINE [facility] 12:27:23 [code = INFLUENZA VACCINE] Future Scheduled Test 2022-03-03 HEPATITIS B VACCINES [facility] 12:27:23 (1 of 3 - 3-dose series) [code = HEPATITIS B VACCINES (1 of 3 - 3-dose series)] Future Scheduled Test 2022-03-03 COVID-19 VACCINE [facility] 12:27:23 (#1) [code = COVID-19 VACCINE (#1)] Future Scheduled Test 2022-02-19 COVID-19 VACCINE [facility] 10:27:57 (#1) [code = COVID-19 VACCINE (#1)] Future Scheduled Test 2022-02-19 INFLUENZA VACCINE [facility] 10:27:57 [code = INFLUENZA VACCINE] Future Scheduled Test 2022-02-19 HEPATITIS B VACCINES [facility] 10:27:57 (1 of 3 - 3-dose series) [code = HEPATITIS B VACCINES (1 of 3 - 3-dose series)] Future Scheduled Test 2022-02-19 COVID-19 VACCINE [facility] 10:27:57 (#1) [code = COVID-19 VACCINE (#1)] Future Scheduled Test 2022-02-19 INFLUENZA VACCINE [facility] 10:27:57 [code = INFLUENZA VACCINE] Future Scheduled Test 2022-02-19 HEPATITIS B VACCINES [facility] 10:27:57 (1 of 3 - 3-dose series) [code = HEPATITIS B VACCINES (1 of 3 - 3-dose series)] Future Scheduled Test 2022-02-19 COVID-19 VACCINE [facility] 10:27:57 (#1) [code = COVID-19 VACCINE (#1)] Future Scheduled Test 2022-02-19 INFLUENZA VACCINE [facility] 10:27:57 [code = INFLUENZA VACCINE] Future Scheduled Test 2022-02-19 HEPATITIS B VACCINES [facility] 10:27:57 (1 of 3 - 3-dose series) [code = HEPATITIS B VACCINES (1 of 3 - 3-dose series)] Future Scheduled Test 2021-07-[address] [facility] 00:00:00 (12+) [code = Medical Center DEPRESSION SCREENING (12+)] Future Scheduled Test 2021-07-[address] [facility] 00:00:00 (12+) [code = Medical Center DEPRESSION SCREENING (12+)] Future Scheduled Test 2021-07-[address] [facility] 00:00:00 (12+) [code = Medical Center DEPRESSION SCREENING (12+)] Future Scheduled Test 2021-07-[address] [facility] 00:00:00 (12+) [code = Medical Center DEPRESSION SCREENING (12+)] Future Scheduled Test 2021-07-[address] [facility] 00:00:00 (12+) [code = Medical Center DEPRESSION SCREENING (12+)] Future Scheduled Test 2021-07-[address] [facility] 00:00:00 (12+) [code = Medical Center DEPRESSION SCREENING (12+)] Future Scheduled Test 2021-07-[address] [facility] 00:00:00 (12+) [code = Medical Center DEPRESSION SCREENING (12+)] Future Scheduled Test 2021-07-[address] [facility] 00:00:00 (12+) [code = Medical Center DEPRESSION SCREENING (12+)] Future Scheduled Test 2021-07-[address] [facility] 00:00:00 (12+) [code = Medical Center DEPRESSION SCREENING (12+)] Future Scheduled Test 2021-07-[address] [facility] 00:00:00 (12+) [code = Medical Center DEPRESSION SCREENING (12+)] Future Scheduled Test 2021-07-[address] [facility] 00:00:00 (12+) [code = Medical Center DEPRESSION SCREENING (12+)] Future Scheduled Test 2021-07-[address] [facility] 00:00:00 (12+) [code = Medical Center DEPRESSION SCREENING (12+)] Future Scheduled Test 2021-07-[address] [facility] 00:00:00 (12+) [code = Medical Center DEPRESSION SCREENING (12+)] Future Scheduled Test 2021-07-[address] [facility] 00:00:00 (12+) [code = Medical Center DEPRESSION SCREENING (12+)] Future Scheduled Test 2019-11-[address] [facility] 00:00:00 (procedure) [code = [facility] [id number]] Future Scheduled Test 2019-11-[address] [facility] 00:00:00 (procedure) [code = [facility] [id number]] Future Scheduled Test 2019-11-[address] [facility] 00:00:00 (procedure) [code = [facility] [id number]] Future Scheduled Test 2019-11-[address] [facility] 00:00:00 (procedure) [code = [facility] [id number]] Future Scheduled Test 2019-11-[address] [facility] 00:00:00 (procedure) [code = [facility] [id number]] Future Scheduled Test 2019-11-[address] [facility] 00:00:00 (procedure) [code = [facility] [id number]] Future Scheduled Test 2019-11-[address] [facility] 00:00:00 (procedure) [code = [facility] [id number]] Future Scheduled Test 2019-11-[address] [facility] 00:00:00 (procedure) [code = [facility] [id number]] Future Scheduled Test 2019-11-[address] [facility] 00:00:00 (procedure) [code = [facility] [id number]] Future Scheduled Test 2019-11-[address] [facility] 00:00:00 (procedure) [code = [facility] [id number]] Future Scheduled Test 2019-11-[address] [facility] 00:00:00 (procedure) [code = [facility] [id number]] Future Scheduled Test 2019-11-[address] [facility] 00:00:00 (procedure) [code = [facility] [id number]] Future Scheduled Test 2019-11-[address] [facility] 00:00:00 (procedure) [code = [facility] [id number]] Future Scheduled Test 2019-11-[address] [facility] 00:00:00 (procedure) [code = [facility] [id number]] Future Scheduled Test 2011-01-[address] [facility] 00:00:00 WELLNESS (YEAR 2 or Medical Center FIRST YEAR if no IPPE) [code = MEDICARE ANNUAL WELLNESS (YEAR 2 or FIRST YEAR if no IPPE)] Future Scheduled Test 2011-01-[address] [facility] 00:00:00 WELLNESS (YEAR 2 or Medical Center FIRST YEAR if no IPPE) [code = MEDICARE ANNUAL WELLNESS (YEAR 2 or FIRST YEAR if no IPPE)] Future Scheduled Test 2011-01-[address] [facility] 00:00:00 WELLNESS (YEAR 2 or Medical Center FIRST YEAR if no IPPE) [code = MEDICARE ANNUAL WELLNESS (YEAR 2 or FIRST YEAR if no IPPE)] Future Scheduled Test 2011-01-[address] [facility] 00:00:00 WELLNESS (YEAR 2 or Medical Center FIRST YEAR if no IPPE) [code = MEDICARE ANNUAL WELLNESS (YEAR 2 or FIRST YEAR if no IPPE)] Future Scheduled Test 2011-01-[address] [facility] 00:00:00 WELLNESS (YEAR 2 or Medical Center FIRST YEAR if no IPPE) [code = MEDICARE ANNUAL WELLNESS (YEAR 2 or FIRST YEAR if no IPPE)] Future Scheduled Test 2011-01-[address] [facility] 00:00:00 WELLNESS (YEAR 2 or Medical Center FIRST YEAR if no IPPE) [code = MEDICARE ANNUAL WELLNESS (YEAR 2 or FIRST YEAR if no IPPE)] Future Scheduled Test 2011-01-[address] [facility] 00:00:00 WELLNESS (YEAR 2 or Medical Center FIRST YEAR if no IPPE) [code = MEDICARE ANNUAL WELLNESS (YEAR 2 or FIRST YEAR if no IPPE)] Future Scheduled Test 2011-01-[address] [facility] 00:00:00 WELLNESS (YEAR 2 or Medical Center FIRST YEAR if no IPPE) [code = MEDICARE ANNUAL WELLNESS (YEAR 2 or FIRST YEAR if no IPPE)] Future Scheduled Test 2011-01-[address] [facility] 00:00:00 WELLNESS (YEAR 2 or Medical Center FIRST YEAR if no IPPE) [code = MEDICARE ANNUAL WELLNESS (YEAR 2 or FIRST YEAR if no IPPE)] Future Scheduled Test 2011-01-[address] [facility] 00:00:00 WELLNESS (YEAR 2 or Medical Center FIRST YEAR if no IPPE) [code = MEDICARE ANNUAL WELLNESS (YEAR 2 or FIRST YEAR if no IPPE)] Future Scheduled Test 2011-01-[address] [facility] 00:00:00 WELLNESS (YEAR 2 or Medical Center FIRST YEAR if no IPPE) [code = MEDICARE ANNUAL WELLNESS (YEAR 2 or FIRST YEAR if no IPPE)] Future Scheduled Test 2011-01-[address] [facility] 00:00:00 WELLNESS (YEAR 2 or Medical Center FIRST YEAR if no IPPE) [code = MEDICARE ANNUAL WELLNESS (YEAR 2 or FIRST YEAR if no IPPE)] Future Scheduled Test 2011-01-[address] [facility] 00:00:00 WELLNESS (YEAR 2 or Medical Center FIRST YEAR if no IPPE) [code = MEDICARE ANNUAL WELLNESS (YEAR 2 or FIRST YEAR if no IPPE)] Future Scheduled Test 2011-01-[address] [facility] 00:00:00 WELLNESS (YEAR 2 or Medical Center FIRST YEAR if no IPPE) [code = MEDICARE ANNUAL WELLNESS (YEAR 2 or FIRST YEAR if no IPPE)] Future Scheduled Test 2003-11-15 DTAP/TDAP/TD [facility] 00:00:00 VACCINES (1 - Tdap) Medical Center [code = DTAP/TDAP/TD VACCINES (1 - Tdap)] Future Scheduled Test 2003-11-15 DTAP/TDAP/TD [facility] 00:00:00 VACCINES (1 - Tdap) Medical Center [code = DTAP/TDAP/TD VACCINES (1 - Tdap)] Future Scheduled Test 2003-11-15 DTAP/TDAP/TD [facility] 00:00:00 VACCINES (1 - Tdap) Medical Center [code = DTAP/TDAP/TD VACCINES (1 - Tdap)] Future Scheduled Test 2003-11-15 DTAP/TDAP/TD [facility] 00:00:00 VACCINES (1 - Tdap) Medical Center [code = DTAP/TDAP/TD VACCINES (1 - Tdap)] Future Scheduled Test 2003-11-15 DTAP/TDAP/TD [facility] 00:00:00 VACCINES (1 - Tdap) Medical Center [code = DTAP/TDAP/TD VACCINES (1 - Tdap)] Future Scheduled Test 2003-11-15 DTAP/TDAP/TD [facility] 00:00:00 VACCINES (1 - Tdap) Medical Center [code = DTAP/TDAP/TD VACCINES (1 - Tdap)] Future Scheduled Test 2003-11-15 DTAP/TDAP/TD [facility] 00:00:00 VACCINES (1 - Tdap) Medical Center [code = DTAP/TDAP/TD VACCINES (1 - Tdap)] Future Scheduled Test [address] [facility] 00:00:00 SCREENING [code = Medical Ce nter HEPATITIS C SCREENING] Future Scheduled Test [address] [facility] 00:00:00 SCREENING [code = Medical Ce nter HEPATITIS C SCREENING] Future Scheduled Test [address] [facility] 00:00:00 SCREENING [code = Medical Ce nter HEPATITIS C SCREENING] Future Scheduled Test [address] [facility] 00:00:00 SCREENING [code = Medical Ce nter HEPATITIS C SCREENING] Future Scheduled Test [address] [facility] 00:00:00 SCREENING [code = Medical Ce nter HEPATITIS C SCREENING] Future Scheduled Test [address] [facility] 00:00:00 SCREENING [code = Medical Ce nter HEPATITIS C SCREENING] Future Scheduled Test [address] [facility] 00:00:00 SCREENING [code = Medical Ce nter HEPATITIS C SCREENING] Future Scheduled Test [address] [facility] 00:00:00 SCREENING [code = Medical Ce nter HEPATITIS C SCREENING] Future Scheduled Test [address] [facility] 00:00:00 SCREENING [code = Medical Ce nter HEPATITIS C SCREENING] Future Scheduled Test [address] [facility] 00:00:00 SCREENING [code = Medical Ce nter HEPATITIS C SCREENING] Future Scheduled Test [address] [facility] 00:00:00 SCREENING [code = Medical Ce nter HEPATITIS C SCREENING] Future Scheduled Test [address] [facility] 00:00:00 SCREENING [code = Medical Ce nter HEPATITIS C SCREENING] Future Scheduled Test [address] [facility] 00:00:00 SCREENING [code = Medical Ce nter HEPATITIS C SCREENING] Future Scheduled Test [address] [facility] 00:00:00 SCREENING [code = Medical Ce nter HEPATITIS C SCREENING] Future Scheduled Test 1989 COVID-[address] [facility] 00:00:00 (#1) [code = Medical Center COVID-19 VACCINE (#1)] Future Scheduled Test 1989 COVID-[address] [facility] 00:00:00 (#1) [code = Medical Center COVID-19 VACCINE (#1)] Future Scheduled Test 1989 COVID-[address] [facility] 00:00:00 (#1) [code = Medical Center COVID-19 VACCINE (#1)] Future Scheduled Test 1989 COVID-[address] [facility] 00:00:00 (#1) [code = Medical Center COVID-19 VACCINE (#1)] Future Scheduled Test 1989 COVID-[address] [facility] 00:00:00 (#1) [code = Medical Center COVID-19 VACCINE (#1)] Future Scheduled Test 1989 COVID-[address] [facility] 00:00:00 (#1) [code = Medical Center COVID-19 VACCINE (#1)] Future Scheduled Test 1985-05-17 COVID-[address] [facility] 00:00:00 (#1) [code = Medical Center COVID-19 VACCINE (#1)] Future Scheduled Test 1985-05-17 COVID-[address] [facility] 00:00:00 (#1) [code = Medical Center COVID-19 VACCINE (#1)] Future Scheduled Test 1985-05-17 COVID-[address] [facility] 00:00:00 (#1) [code = Medical Center COVID-19 VACCINE (#1)] Future Scheduled Test 1985-05-17 COVID-[address] [facility] 00:00:00 (#1) [code = Medical Center COVID-19 VACCINE (#1)] Future Scheduled Test 1985-05-17 COVID-[address] [facility] 00:00:00 (#1) [code = Medical Center COVID-19 VACCINE (#1)] Future Scheduled Test 1985-05-17 COVID-19 Vaccine [facility] 00:00:00 (#1) [code = COVID-19 Vaccine (#1)] Future Scheduled Test 1985-05-17 COVID-[address] [facility] 00:00:00 (#1) [code = Medical Center COVID-19 VACCINE (#1)] Future Scheduled Test 1985-05-17 COVID-[address] [facility] 00:00:00 (#1) [code = Medical Center COVID-19 VACCINE (#1)] Future Scheduled Test 1985-05-17 COVID-[address] [facility] 00:00:00 (#1) [code = Medical Center COVID-19 VACCINE (#1)] Future Scheduled Test 1985-05-17 COVID-19 Vaccine [facility] 00:00:00 (#1) [code = COVID-19 Vaccine (#1)] Future Scheduled Test 1985-05-17 COVID-19 Vaccine [facility] 00:00:00 (#1) [code = COVID-19 Vaccine (#1)] Future Scheduled Test 1985-05-17 COVID-19 Vaccine [facility] 00:00:00 (#1) [code = COVID-19 Vaccine (#1)] Future Scheduled Test 1985-05-17 COVID-19 Vaccine [facility] 00:00:00 (#1) [code = COVID-19 Vaccine (#1)] Future Scheduled Test 1985-05-17 COVID-19 Vaccine [facility] 00:00:00 (#1) [code = COVID-19 Vaccine (#1)] Future Scheduled Test 1985-05-17 COVID-19 Vaccine [facility] 00:00:00 (#1) [code = COVID-19 Vaccine (#1)] Future Scheduled Test 1984 Fluoride Varnish [facility] 00:00:00 [code = Fluoride Varnish] Future Scheduled Test 1984 Fluoride Varnish [facility] 00:00:00 [code = Fluoride Varnish] Future Scheduled Test 1984 Fluoride Varnish [facility] 00:00:00 [code = Fluoride Varnish] Future Scheduled Test 1984 Fluoride Varnish [facility] 00:00:00 [code = Fluoride Varnish] Future Scheduled Test 1984 Fluoride Varnish [facility] 00:00:00 [code = Fluoride Varnish] Future Scheduled Test 1984 Fluoride Varnish [facility] 00:00:00 [code = Fluoride Varnish] Future Scheduled Test 1984 Fluoride Varnish [facility] 00:00:00 [code = Fluoride Varnish] Future Appointment 2022-03-29 Nolan Del Valle [facility] 00:00:00 [place] [address] Encounters Start End Encounter Admission Attending Care Care Encounter Source Date/Time Date/Time Type Type Clinicians Facility Department ID 2022-02-08 Outpatient [facility] [id number] [place] 12:40:13 [id number] [facility] 2022-01-25 Outpatient [facility] [id number] [place] 13:48:30 [id number] [facility] 2022-01-15 Outpatient GAYLA, FB MHFB [id number] FB 09:20:35 WANDA 2022-05-03 2022-05-03 Outpatient , [facility] [id number] [place] 00:00:00 00:00:00 [facility]22-04-05 2022-04-05 Outpatient SG, [facility] [id number] [place] 00:00:00 00:00:00 KAMILLE [facility] 2022-03-25 2022-03-25 Outpatient [facility]Tod PRIV PRIV [id number] [facility] 00:00:00 00:00:00 dEltonJ [id number] Medica l 2022-03-23 2022-03-23 Outpatient [facility]Tod PRIV PRIV [id number] [facility] 00:00:00 00:00:00 d_J [id number] Medica l 2022-03-23 2022-03-23 [facility] [id number] [facility] 00:00:00 00:00:00 JEANIE Linares: Health - Med ical [address] [address] , Ph. 2022-03-22 2022-03-22 Damir Umana [facility] 202 [id number] [facility] 00:00:00 00:00:00 Lizbeth Health - Med ical MD: [address] [address] , Ph. 2022-03-16 2022-03-16 [facility] [id number] [facility] 00:00:00 00:00:00 JEANIE Linares: Health - Med ical [address] [address] , Ph. 2022-03-12 2022-03-12 Outpatient [facility]od [facility] [id number] [facility] 00:00:00 00:00:00 d_J [id number] Medica l 2022-03-05 2022-03-05 Outpatient Vijay ANJANA [facility] [id number] 00:00:00 00:00:00 Mariela [id number] 2022-03-05 2022-03-05 [facility] [id number] [facility] 00:00:00 00:00:00 JEANIE Linares: Health - Med ical [address] [address] , Ph. 2022-03-02 2022-03-02 Outpatient Vijay ANJANA PRIV [id number] 00:00:00 00:00:00 Mariela [id number] 2022-03-02 2022-03-02 Mariela [facility] [id number] [facility] 00:00:00 00:00:00 JEANIE Linares: Health - Med ical [address] [address] , Ph. 2022-02-28 2022-02-28 Outpatient [facility]Tod PRIV PRIV [id number] [facility] 00:00:00 00:00:00 d_J [id number] Medica l 2022-02-25 2022-02-25 Outpatient Lizbeth PRIV PRIV [id number] 00:00:00 00:00:00 Damir Dong [id number] 2022-02-25 2022-02-25 Damir Umana [facility] [id number] [facility] 00:00:00 00:00:00 Lizbeth [facility] - Med ical MD: [address] [address] , Ph. 2022-02-23 2022-02-23 Outpatient Vijay PRIV PRIV [id number] 00:00:00 00:00:00 Mariela [id number] 2022-02-23 2022-02-23 Mariela [facility] [id number] [facility] 00:00:00 00:00:00 JEANIE Linares: Health - Med ical [address] [address] , Ph. 2022-02-19 2022-02-19 Outpatient [facility]Tod PRIV PRIV [id number] [facility] 00:00:00 00:00:00 d_J [id number] Medica l 2022-02-19 2022-02-19 Mariela [facility] [id number] [facility] 00:00:00 00:00:00 JEANIE Linares: Health - Med ical [address] [address] , Ph. 2022-02-19 2022-02-19 Outpatient Vijay PRIV PRIV [id number] 00:00:00 00:00:00 Mariela [id number] 2022-02-18 2022-02-18 Outpatient [facility]Tod PRIV PRIV [id number] [facility] 00:00:00 00:00:00 d_J [id number] Medica l 2022-01-26 2022-02-16 [facility] [id number] 14:02:00 21:42:00 Ritubaldo 07 2022-01-26 2022-02-16 Inpatient U [facility] [id number] [facility] 14:02:00 21:42:00 RITUBALDO l Eleazar Quinteros [facility] 2022-02-02 2022-02-02 Outpatient SARAI [facility] [id number] [place] 00:00:00 00:00:00 [facility] 2022-01-18 2022-01-26 Inpatient E [facility] [id number] [facility] 10:31:00 12:59:00 [facility] 2022-01-16 2022-01-26 Outpatient Sajja, [facility]PL [facility] [id number] 07:55:41 12:59:00 Arvind 2022-01-16 2022-01-26 Outpatient Sajja, [facility]PL [facility] [id number] 07:55:41 12:59:00 [facility] 2022-01-16 2022-01-16 Outpatient Ajibamann, MHPL MHPL [id number] 07:55:41 07:55:41 Chris 07 Akinwale 2022-01-12 2022-01-12 Emergency ER AI, [facility] Emergency [id number] [facility] 16:19:00 17:42:00 [facility] 2022-01-12 2022-01-12 Emergency Ai [facility] [id number] [facility] 16:19:00 17:42:00 [facility] 2022-01-12 2022-01-12 Emergency ER Ai [facility] [id number] 16:19:00 17:42:[address] [facility] 2022-01-12 2022-01-12 Travel [facility] [id number] [facility] 00:00:00 [facility] 2022-01-12 2022-01-12 Travel [facility] [id number] [facility] 00:[facility] 00:00:00 [facility] 2022-01-08 2022-01-08 Emergency Zain Degroot HCAPM BUSHRA LA00 [id number] [facility] 12:40:00 18:44:00 95 [facility] 2022-01-08 2022-01-08 Emergency Zain Degroot HCAPM HCAPM LA61 [facility] 12:40:00 18:44:00 [id number] [facility] 2022-01-07 2022-01-07 Orders Betty, [facility] [id number] [place] 00:00:00 00:00:00 Only [facility] 2022-01-07 2022-01-07 Orders Betty, [facility] [id number] [place] 00:00:00 00:00:00 Only [facility] 2021-12-23 2021-12-23 Outpatient SARAI, [facility] [id number] [place] 12:11:26 12:16:15 [facility] 2021-12-23 2021-12-23 Office Souconsuelo, [facility] [id number] [facility] 11:00:00 12:16:02 Visit [facility] 2021-12-23 2021-12-23 Office Sou[place], [facility] [id number] [place] 11:00:00 12:16:02 [facility] 2021-12-23 2021-12-23 Outpatient SOUCONSUELO, [facility] [id number] [place] 00:00:00 00[place]00 [place] [facility] 2021-12-23 2021-12-23 [facility] [id number] [place] 00:00:00 00:00:00 Only Annie Kale Carlinaron 2021-12-23 2021-12-23 [facility] [id number] [place] 00:00:00 00:00:00 Only Annie Kale henley 2021-12-02 2021-12-16 Emergency LionKym Desir [facility] [id number] [place] 16:49:00 11:54:00 Marla Bai [facility] Elida Peter Charmaine P 2021-12-02 2021-12-16 Emergency LionAllie Desirovanni [facility] [id number] [place] 16:49:00 11:54:00 Marla Bai Joslyn W Mutucumarana, Charmaine P 2021-12-15 2021-12-15 Outpatient [facility] [id number] [place] 11:10:10 11:58:48 [facility] 2021-12-14 2021-12-14 Outpatient [facility] [id number] [place] 15:58:03 15:58:08 [facility] 2021-12-14 2021-12-14 Outpatient [facility] [id number] [place] 13:56:45 14:11:44 [facility] 2021-12-10 2021-12-10 Outpatient [facility] [id number] [place] 08:04:54 09:52:59 [facility] 2021-12-09 2021-12-09 Outpatient [facility] [id number] [place] 14:31:10 16:27:35 [facility] 2021-12-05 2021-12-05 Outpatient [facility] [id number] [place] 15:47:31 16:10:42 [facility] 2021-12-05 2021-12-05 Outpatient [facility] [id number] [place] 00:00:00 00:00:00 [facility] 2021-12-02 2021-12-02 Emergency [facility] [id number] [place] 17:25:24 18:26:13 [facility] KYM 2021-12-02 2021-12-02 [facility] [id number] [place] 16:49:00 16:49:00 [facility] 2021-12-01 2021-12-01 Outpatient Gayla, MHSL MHSL [id number] 06:20:00 12:40:00 Wanda 05 [place] 2021-12-01 2021-12-01 Outpatient ERISL, MHFB MHFB [id number] MHFB 06:20:00 12:40:00 WANDA 2021-12-01 2021-12-01 Outpatient Jaseferinol, MHSL MHSL [id number] 08:00:00 08:00:00 Wanda 05 [place] 2021-11-25 2021-11-25 Emergency [facility] [id number] [facility]SL 16:20:00 16:55:00 [facility] 2021-11-25 2021-11-25 Emergency Otonyu, [facility] [id number] 16:20:00 16:55:00 [facility] 2021-11-25 2021-11-25 Emergency Ojose f, [facility] [id number] 16:20:00 16:55:00 [facility] 2021-07-31 2021-07-31 Travel [facility] [id number] [facility] 00[facility] 00:[facility]:00 [facility] 2021-07-31 2021-07-31 Travel [facility] [id number] [facility] 00:[facility] 00:00:00 [facility] 2021-07-30 2021-07-30 Emergency ER STONE, BRII [facility] [id number] SLSL 19:14:00 21:58:00 2021-07-30 2021-07-30 Emergency Stone, Brii [facility] [id number] 19:14:00 21:58:00 [facility] 2021-07-30 2021-07-30 Emergency ER Stone, Brii [facility] [id number] 19:14:00 21:58:00 [facility] 2018-07-01 2018-07-01 Outpatient BAILEY Ham [facility]PL [id number] 18:27:00 22:12:00 Jazmin 01 Lucero 2018-06-27 2018-06-29 Outpatient Hammonds, PL PL [id number] 20:48:00 19:05:00 Ugochi 04 Kianna 2017-12-30 2017-12-[id number] 10:30:00 12:31:00 U 03 2016-10-04 2016-10-08 Outpatient Carrie, PL PL [id number] 13:28:00 15:10:00 Annette 02 Yasmin 2016-04-17 2016-04-17 Outpatient Savita, PL PL [id number] 10:11:00 13:54:00 Ambica 2015-07-17 2015-07-18 Outpatient Vijay Combs [facility] [id number] 14:28:00 12:05:00 Foster 2015-07-17 2015-07-17 Outpatient Alyson, [facility] [id number] 11:42:00 14:15:00 Nadim B 00 Results Test Description Test Time Test Comments Results Result Comments Source B-TYPE NATRIURETIC FACTOR (BNP) 2022-01-12 17:12:09 Test Item Value Reference Range Interpretation Comme nts B-TYPE NATRIURETIC PEPTIDE (BEAKER) (test code = 700) 69 pg/mL 0-100 Automatic 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 Automatic Riveting Machine Operator ID - [id number] ID - [id number] ID - [id number] ID - [id number] ID - [id number] ID - [id number] ID - JZQIE455Pritwwvk ID - [id number] ID - IWMEE118Oxoipiol ID - [id number] ID - [id number] ID - [id number] ID - [id number] ID - [id number] ID - [id number] ID - [id number] ID - [id number] ID - [id number] ID - [id number] W/PLT COUNT & AUTO FLGNYSOGBHVJ7190-45-09 16:49:25 Test Item Value Reference Range Interpretation [...] code = 2801) - CTA CHEST FOR [id number] 18:27:00 [facility] 1985 Sex: M Name: VERÓNICA NUNN : 1985 Age/S: 36 / M [address] Unit #: [id number] Loc: [place] [address] Phys: Zain David DO Acct: [id number] Dis Date: Status: REG ER PHONE #: [phone] Exam Date: 01/08/20221802 FAX #: Reason: evaluate for PE EXAMS: CPT: [id number] CT[place] CHEST [place] PE 15107 EXAM: - CTA CHEST FOR PE LOCATION: [...] 1 Signed Report (CONTINUED) Name: GIGI NUNN : 1985 Age/S: 36 / M [id number] Unit #: [id number] Loc: [place] [address] Phys: Zain David DO Acct: [id number] Dis Date: Status: REG ER PHONE #: [phone] Exam Date: 01/08/2022 1803 FAX #: Reason: evaluate for PE EXAMS: CPT: [id number] [place] [address] (Continued) at 1827 Reportedand signed by: Ba Anaya M.D. CC: Zain David DO Technologist:Abram Prasad, RT(R) CTDI: DLP: Trnscb Date/Time: 01/08/2022 (1826) [email or web address] Orig Print D/T: S: 01/08/2022 (1829) PAGE2 Signed Report- DUP VEIN [id number] 16:52:00 [facility] 1985 Sex: M Name: VERÓNICA NUNN [facility] : 1985 Age/S: 36 / M [address] Unit #: [id number] Loc: [place] [address] Phys: Zain Daivd DO Acct: [id number] Dis Date: Status: REG ER PHONE #: [phone] Exam Date: 01/08/2022 1648 FAX #: Reason: swelling EXAMS: CPT: [id number] DUP VEIN COMFORT 41922 EXAM: - DUP VEIN COMFORT LOCATION: H65 HISTORY: swelling TECHNIQUE: Grayscale real-time B-mode imaging with color flow and spectral flow Doppler analysis was performed of the bilateral lower extremities. COMPARISON: None available. FINDINGS: There is normal compressibility with no evidence of thrombus in the visualized venous structures of the bilateral lower extremities. IMPRESSION: No DVT in the visualizedvenous structures of the bilateral lower extremities. at 1652 Reported and signed by: Rolo Suero D.O. CC: Zain David DO Technologist: Kianna Cardenas Trnscb Date/Time: 01/08/2022 (1651) [email or web address] PAGE 1 Signed Report Name: VERÓNICA NUNN [place] : 1985 Age/S: 36 / M [address] Unit #: [id number] Loc: [place] [address] Phys: Zain David DO Acct: [id number] Dis Date: Status: REG ER PHONE #: [phone] Exam Date: 01/08/2022 1648 FAX #: Reason: swelling EXAMS: CPT: [id number] DUP VEIN COMFORT 80360 (Continued) Orig Print D/T: S: 01/08/2022 (1654) Probe: PAGE 2 Signed Report TROP-I HIGH [id number] 15:07:00 Test Item Value Reference Range Interpretation [...] varyby method. Completed by Nursing: NOBASIC METABOLIC [id number] 15:07:00 Test Item Value Reference Range Interpretation [...] N Completed by Nursing: NONT PRO-BRAIN NATRIURETIC [id number] 15:07:00 Test Item Value Reference Range Interpretation Comments NT PRO-BRAIN NATRIURETIC PEPTI 163 PG/ML 0-100 H (test code = PROBNP) Completed by Nursing: [id number]-JJUBT1116-23-08 15:04:00 Test Item Value Reference Range Interpretation [...] STS AND APPROPRIATECLIN ICAL EUALUATIONS. HEPATIC FUNCTION [id number] 14:58:00 Test Item Value Reference Range Interpretation [...] 50-136 N code = ALKP) CBC W/O [id number] 14:41:00 Test Item Value Reference Range Interpretation [...] 7.0-9.6 H MPV) - XR CHEST 1 [id number] 14:24:00 [facility] : 1985 Sex: M Name: VERÓNICA NUNN [place] : 1985 Age/S: 36 / M [address] Unit #: [id number] Loc: [place] [address] Phys: Zain David DO Acct: [id number] Dis Date: Status: REG ER PHONE #: [phone] Exam Date: 01/08/2022 1418 FAX #: Reason: chest pain EXAMS: CPT: [id number] XR CHEST 1 V 85150 Fluoro Time: DAP (Gy m2): Air Kerma (mGy): Site ID: [id number] HISTORY: Chest pain COMPARISON: None FINDINGS: Patchy bibasilar infiltrates may reflect pneumonia or atelectasis. The heart and pulmonary vasculatureis normal. Osseous structures are unremarkable. IMPRESSION: Patchy bibasilar infiltrates may reflectpneumonia or atelectasis at 1424 Reported and signed by: Raymundo Delacruz M.D. CC: Zain David DO PAGE 1 Signed Report Name: VERÓNICA NUNN [place] : 1985 Age/S: 36 / M [address] Unit #: [id number] Loc: [place] [address] Phys: Zain David DO Acct: [id number] Dis Date: Status: REG ER PHONE #: [phone] Exam Date: 01/08/2022 1418 FAX #: Reason: chest pain EXAMS: CPT: [id number] XR CHEST 1 V 70317 Fluoro Time: DAP (Gym2): Air Kerma (mGy): (Continued) Technologist: Vladislav Moreno, RT(R)(CT) Trnscb Date/Time: 01/08/2022 (1426) [id number] Orig Print D/T: S: 01/08/2022 (4917) PAGE 2 Signed ReportPOCT GLUCOSE POC docked [id number] 10:55:52 Test Item Value Reference Range Interpretation Comments Glucose POC (test code = 14337286) 79 mg/dL 74-106 Lab Interpretation (test code = Normal 67415-3) [facility] GLUCOSE POC docked [id number] 10:55:52 Test Item Value Reference Range Interpretation Comments Glucose POC (test code = 40164270) 79 mg/dL 74-106 Lab Interpretation (test code = Normal 01271-3) [place] [id number] 10:55:52 Test Item Value Reference Range Interpretation Comments Glucose POC (test code = 94627843) 79 mg/dL 74-106 Lab Interpretation (test code = Normal 09910-4) [facility] [id number] 10:55:52 Test Item Value Reference Range Interpretation Comments Glucose POC (test code = 97921716) 79 mg/dL 74-106 Lab Interpretation (test code = Normal 58880-0) [facility]ed kymeer3487-71-92 10:55:52 Test Item Value Reference Range Interpretation Comments Glucose POC (test code = 62416358) 79 mg/dL 74-106 Lab Interpretation (test code = Normal 42954-3) [facility] docked jetlzz3642-43-28 10:55:52 Test Item Value Reference Range Interpretation Comments Glucose POC (test code = 29149257) 79 mg/dL 74-106 Lab Interpretation (test code = Normal 38391-5) [facility]ed [id number] 10:55:52 Test Item Value Reference Range Interpretation Comments Glucose POC (test code = 49005220) 79 mg/dL 74-106 Lab Interpretation (test code = Normal 86258-6) [place] [address] Lead [id number] 14:05:1912 LEAD EKG FOR [facility] Test Date: 1519-06-91Tgq Name: VERÓNICA CLARK Department: 5CNHPatient ID: [id number] Room: Gender: Frame Aligner: SHIOB: 1985 Requested By: MISAEL HUIZARrder Number: [id number] Reading MD: Rosa Santa MeasurementsIntervals Fellows Rate: 90 P: 73PR:142 QRS: 90QRSD: 104 T: 69QT: 345 QTc: [address] ELEVATION [0.05+ mV ST ELEVATION]Electronically Signed On 12-14-2021 14:05:45 CDT by Rosa NolenVerve Mobile [place] [address] Lead [id number] 14:05:1912 LEAD EKG FOR [facility] Test Date: 0772-62-92Jsq Name: VERÓNICA CLARK Department: 5CMSPatient ID: [id number] Room: Gender: M Frame Aligner: SHIOB: 1985 Requested By: MISAEL VELÁZQUEZ EOrder Number: [id number] Reading MD: Rosa Santa MeasurementsIntervals Fellows Rate: 90 P: 73PR:142 QRS: 90QRSD: 104 T: 69QT: 345 QTc: 393 Interpret[address] Stat[address] ELEVATION [0.05+ mV ST ELEVATION]Electronically Signed On 12-14-2021 14:05:45 CDT by [facility] Center[facility] [place] [address] Lead [id number] 14:05:1912 LEAD EKG FOR [facility] Test Date: 4519-90-40Wbg Name: VERÓNICA CLARK Department: 5CMSPatient ID: [id number] Room: Gender: M Frame Aligner: ANNIEDOB: 1985 Requested By: MISAEL VELÁZQUEZ EOrder Number: [id number] Reading MD: Rosa Santa MeasurementsIntervals Fellows Rate: 90 P: 73PR:142 QRS: 90QRSD: 104 T: 69QT: 345 QTc: 393 [address] Stat[address] ELEVATION [0.05+ mV ST ELEVATION]Electronically Signed On 12-14-2021 14:05:45 CDT by [facility] [place] [address] Lead [id number] 14:05:1912 LEAD EKG FOR [facility] Test Date: 8713-19-67Ivm Name: VERÓNICA CLARK Department: 5CMSPatient ID: [id number] Room: Gender: M Frame Aligner: ANNIEDOB: 1985 Requested By: MISAEL VELÁZQUEZ EOrder Number: [id number] Reading MD: Rosa Santa MeasurementsIntervals Fellows Rate: 90 P: 73PR:142 QRS: 90QRSD: 104 T: 69QT: 345 QTc: 393 [address] ELEVATION [0.05+ mV ST ELEVATION]Electronically Signed On 12-14-2021 14:05:45 CDT by Rosa [facility] Arqcok29 Lead [id number] 14:05:1912 LEAD EKG FOR [facility] Test Date: 7778-66-65Jiu Name: VERÓNICA CLARK Department: 5CMSPatient ID: [id number] Room: Gender: M Frame Aligner: ANNIEDOB: 1985 Requested By: MISAEL HUIZARrder Number: [id number] Reading MD: Rosa Santa MeasurementsIntervals Fellows Rate: 90 P: 73PR:142 QRS: 90QRSD: 104 T: 69QT: 345 QTc: [address] ELEVATION [0.05+ mV ST ELEVATION]Electronically Signed On 12-14-2021 14:05:45 CDT by Rosa [facility] Qzshyk32 Lead [id number] 14:05:1912 LEAD EKG FOR [facility] Test Date: 7716-75-71Slp Name: VERÓNICA CLARK Department: 5CMSPatient ID: [id number] Room: Gender: Frame Aligner: ANNIEDOB: 1985 Requested By: MISAEL Lacyer Number: [id number] Reading MD: Rosa Santa MeasurementsIntervals Fellows Rate: 90 P: 73PR:142 QRS: 90QRSD: 104 T: 69QT: 345 QTc: [address] ELEVATION [0.05+ mV ST ELEVATION]Electronically Signed On 12-14-2021 14:05:45 CDT by Rosa [facility] [id number] Lead [id number] 14:05:1912 LEAD EKG FOR [facility] Test Date: [id number] Name: VERÓNICA CLARK Department: 5CMSPatient ID: [id number] Room: Gender: M Frame Aligner: ANNIEDOB: 1985 Requested By: MISAEL Lacyer Number: [id number] Reading MD: Rosa Santa MeasurementsIntervals Fellows Rate: 90 P: 73PR:142 QRS: 90QRSD: 104 T: 69QT: 345 QTc: [address] ELEVATION [0.05+ mV ST ELEVATION]Electronically Signed On 12-14-2021 14:05:45 CDT by Rosa Salguero [facility]HIV1 p24 Ag SerPl Ql [id number] 11:54:50 Test Item Value Reference Range Interpretation Comments HIV 1+2 Ab+HIV1 p24 Ag SerPl Ql IA NEGATIVE Negative (test code = 09362-1) Coronavirus, CoVID-19, [id number] 02:25:42 Test Item Value Reference Interpretation Comments Range COVID-19 Not Detected Not Detected INTERPRETATION: (SARS-COV-2) (test No detect able code = 86004-1) levels of SARS-CoV-2 Coronavirus (COVID-19) were present [...] its performance characteristics were verified by the [facility] molecular diagnostics laboratory and is authorized for clinical diagnostic use. This laboratory is certified under the Clinical Laboratory Improvement Amendments (CLIA) as qualified to perform high complexity clinical laboratory testing. Lab Interpretation Normal (test code = 82574-2) [facility], CoVID-19, [id number] 02:25:42 Test Item Value Reference Interpretation Comments Range COVID-19 Not Detected Not Detected INTERPRETATION: (SARS-COV-2) (test No detect able code = 52017-6) levels of SARS-CoV-2 Coronavirus (COVID-19) were present [...] its performance characteristics were verified by the [facility] molecular diagnostics laboratory and is authorized for clinical diagnostic use. This laboratory is certified under the Clinical Laboratory Improvement Amendments (CLIA) as qualified to perform high complexity clinical laboratory testing. Lab Interpretation Normal (test code = 22577-0) [place] RonaldCoronavirus, CoVID-19, [id number] 02:25:42 Test Item Value Reference Interpretation Comments Range COVID-19 Not Detected Not Detected INTERPRETATION: (SARS-COV-2) (test No detect able code = 16102-2) levels of SARS-CoV-2 Coronavirus (COVID-19) were present [...] its performance characteristics were verified by the [facility] molecular diagnostics laboratory and is authorized for clinical diagnostic use. This laboratory is certified under the Clinical Laboratory Improvement Amendments (CLIA) as qualified to perform high complexity clinical laboratory testing. Lab Interpretation Normal (test code = 05841-9) [place] RonaldCoronavirus, CoVID-19, [id number] 02:25:42 Test Item Value Reference Interpretation Comments Range COVID-19 Not Detected Not Detected INTERPRETATION: (SARS-COV-2) (test No detect able code = 52932-1) levels of SARS-CoV-2 Coronavirus (COVID-19) were present [...] its performance characteristics were verified by the [facility] molecular diagnostics laboratory and is authorized for clinical diagnostic use. This laboratory is certified under the Clinical Laboratory Improvement Amendments (CLIA) as qualified to perform high complexity clinical laboratory testing. Lab Interpretation Normal (test code = 81304-7) [place] RonaldCoronavirus, CoVID-19, [id number] 02:25:42 Test Item Value Reference Interpretation Comments Range COVID-19 Not Detected Not Detected INTERPRETATION: (SARS-COV-2) (test No detect able code = 60137-0) levels of SARS-CoV-2 Coronavirus (COVID-19) were present [...] its performance characteristics were verified by the [facility] molecular diagnostics laboratory and is authorized for clinical diagnostic use. This laboratory is certified under the Clinical Laboratory Improvement Amendments (CLIA) as qualified to perform high complexity clinical laboratory testing. Lab Interpretation Normal (test code = 13553-2) [place] RonaldCoronavirus, CoVID-19, [id number] 02:25:42 Test Item Value Reference Interpretation Comments Range COVID-19 Not Detected Not Detected INTERPRETATION: (SARS-COV-2) (test No detect able code = 87555-2) levels of SARS-CoV-2 Coronavirus (COVID-19) were present [...] its performance characteristics were verified by the [facility] molecular diagnostics laboratory and is authorized for clinical diagnostic use. This laboratory is certified under the Clinical Laboratory Improvement Amendments (CLIA) as qualified to perform high complexity clinical laboratory testing. Lab Interpretation Normal (test code = 66460-7) [facility]avirus, CoVID-19, [id number] 02:25:42 Test Item Value Reference Interpretation Comments Range COVID-19 Not Detected Not Detected INTERPRETATION: (SARS-COV-2) (test No detect able code = 83087-1) levels of SARS-CoV-2 Coronavirus (COVID-19) were present [...] its performance characteristics were verified by the [facility] molecular diagnostics laboratory and is authorized for clinical diagnostic use. This laboratory is certified under the Clinical Laboratory Improvement Amendments (CLIA) as qualified to perform high complexity clinical laboratory testing. Lab Interpretation Normal (test code = 97953-8) [facility] HealthErxztiCLWX-YfH-9 RNA Resp Ql YOSHI+vbdro7503-84-70 02:25:42 Test Item Value Reference Range Interpretation Comments Hospitalized? (test No code = 79181-0) ICU? (test code = No 64001-3) Symptomatic as defined No by CDC? (test code = 17805-9) Employed in No Healthcare? (test code = 35860-7) Resident in a No congregate care setting (including nursing homes, residential care for people with intellectual and developmental disabilities, psychiatric treatment facilities, group homes, board and care homes, homeless longterm, foster care or other): (test code = 21175-0) SARS-CoV-2 RNA Resp Ql NOT DETECTED Not Detected INTER PRETATION: No YOSHI+probe (test code = detec table levels 87461-6) of SARS-CoV-2 Coronavirus (COVID-19) were present in [...] its performance characteristics were verified by the [facility] molecular diagnostics laboratory and is authorized for clinical diagnostic use. This laboratory is certified under the Clinical Laboratory Improvement Amendments (CLIA) as qualified to perform high complexity clinical laboratory testing.POCT BMP POC docked device 2021-12-02 20:33:07 Test Item Value Reference Range Interpretation Comments Sodium POC (test code = 134 mmol/L 136-145 L 08777222) Potassium POC (test code 4.2 mmol/L 3.5-5.1 = 75076634) Chloride POC (test code 103 mmol/L 98-107 = 53302477) TCO2 POC (test code = 28 mmol/L 21-32 Physic alden Notified 70985907) Urea Nitrogen POC (test 12 mg/dL 7-18 code = 56149147) Glucose POC (test code = 76 mg/dL 74-106 39465251) Hemoglobin POC (test 7.1 g/dL 12-16 L code = 51373360) Hematocrit POC (test 21.0 % 37.0-47.0 L code = 47032885) Lab Interpretation (test Abnormal code = 98018-3) [facility] [id number] 20:33:07 Test Item Value Reference Range Interpretation Comments Sodium POC (test code = 134 mmol/L 136-145 L 50587669) Potassium POC (test code 4.2 mmol/L 3.5-5.1 = 85480893) Chloride POC (test code 103 mmol/L 98-107 = 20006998) TCO2 POC (test code = 28 mmol/L -32 Physic alden Notified 44481784) Urea Nitrogen POC (test 12 mg/dL 7-18 code = 04233159) Glucose POC (test code = 76 mg/dL 74-106 07292586) Hemoglobin POC (test 7.1 g/dL 12-16 L code = 07809868) Hematocrit POC (test 21.0 % 37.0-47.0 L code = 50792167) Lab Interpretation (test Abnormal code = 64837-8) [facility]ed [id number] 20:33:07 Test Item Value Reference Range Interpretation Comments Sodium POC (test code = 134 mmol/L 136-145 L 25346089) Potassium POC (test code 4.2 mmol/L 3.5-5.1 = 48642115) Chloride POC (test code 103 mmol/L 98-107 = 18992154) TCO2 POC (test code = 28 mmol/L -32 Physic alden Notified 96792700) Urea Nitrogen POC (test 12 mg/dL 7-18 code = 78389402) Glucose POC (test code = 76 mg/dL 74-106 41657704) Hemoglobin POC (test 7.1 g/dL 12-16 L code = 81634888) Hematocrit POC (test 21.0 % 37.0-47.0 L code = 46365318) Lab Interpretation (test Abnormal code = 93855-8) [facility]ed [id number] 20:33:07 Test Item Value Reference Range Interpretation Comments Sodium POC (test code = 134 mmol/L 136-145 L 84834304) Potassium POC (test code 4.2 mmol/L 3.5-5.1 = 86488081) Chloride POC (test code 103 mmol/L 98-107 = 49537851) TCO2 POC (test code = 28 mmol/L 21-32 Physic alden Notified 64348470) Urea Nitrogen POC (test 12 mg/dL 7-18 code = 38139071) Glucose POC (test code = 76 mg/dL 74-106 83567210) Hemoglobin POC (test 7.1 g/dL 12-16 L code = 07023031) Hematocrit POC (test 21.0 % 37.0-47.0 L code = 41696155) Lab Interpretation (test Abnormal code = 73211-0) [facility] P[facility] docked bookie3835-61-45 20:33:07 Test Item Value Reference Range Interpretation Comments Sodium POC (test code = 134 mmol/L 136-145 L 64847636) Potassium POC (test code 4.2 mmol/L 3.5-5.1 = 24464276) Chloride POC (test code 103 mmol/L 98-107 = 71315479) TCO2 POC (test code = 28 mmol/L 21-32 Physic alden Notified 89601646) Urea Nitrogen POC (test 12 mg/dL 7-18 code = 35673568) Glucose POC (test code = 76 mg/dL 74-106 05816030) Hemoglobin POC (test 7.1 g/dL 12-16 L code = 11964063) Hematocrit POC (test 21.0 % 37.0-47.0 L code = 15901580) Lab Interpretation (test Abnormal code = 51612-2) State [facility] [id number] 20:33:07 Test Item Value Reference Range Interpretation Comments Sodium POC (test code = 134 mmol/L 136-145 L 84072993) Potassium POC (test code 4.2 mmol/L 3.5-5.1 = 26554815) Chloride POC (test code 103 mmol/L 98-107 = 41158301) TCO2 POC (test code = 28 mmol/L 21-32 Physic alden Notified 42252848) Urea Nitrogen POC (test 12 mg/dL 7-18 code = 19742550) Glucose POC (test code = 76 mg/dL 74-106 72860444) Hemoglobin POC (test 7.1 g/dL 12-16 L code = 93547548) Hematocrit POC (test 21.0 % 37.0-47.0 L code = 29206772) Lab Interpretation (test Abnormal code = 58821-6) [facility] BMP POC docked [id number] 20:33:07 Test Item Value Reference Range Interpretation Comments Sodium POC (test code = 134 mmol/L 136-145 L 95065613) Potassium POC (test code 4.2 mmol/L 3.5-5.1 = 66849074) Chloride POC (test code 103 mmol/L 98-107 = 34917242) TCO2 POC (test code = 28 mmol/L 21-32 Physic alden Notified 11382381) Urea Nitrogen POC (test 12 mg/dL 7-18 code = 73111312) Glucose POC (test code = 76 mg/dL 74-106 55321830) Hemoglobin POC (test 7.1 g/dL 12-16 L code = 68496114) Hematocrit POC (test 21.0 % 37.0-47.0 L code = 08009112) Lab Interpretation (test Abnormal code = 16042-4) [facility] CREATININE POC docked [id number] 20:32:51 Test Item Value Reference Range Interpretation Comments Creatinine POC (test 0.5 mg/dL 0.6-1.3 L Physici an Notified code = 43591724) eGFR If non- Am >120 See_Comment [Aut omated message] (test code = 69672328) The s ystem which generated this result transmit gregory reference range : >=90 mL/min/1.7 3 m2. The reference r sravanthi was not used to interpret this result as normal/abnormal . eGFR If Am (test >120 See_Comment [A utomated message] code = 91903397) The system which generated this result transmit gregory reference range : >=90 mL/min/1.7 3 m2. The reference r sravanthi was not used to interpret this result as normal/abnormal . Lab Interpretation (test Abnormal code = 19818-1) [facility] [id number] 20:32:51 Test Item Value Reference Range Interpretation Comments Creatinine POC (test 0.5 mg/dL 0.6-1.3 L Physici an Notified code = 88250570) eGFR If non- Am >120 See_Comment [Aut omated message] (test code = 15141310) The s ystem which generated this result transmit gregory reference range : >=90 mL/min/1.7 3 m2. The reference r sravanthi was not used to interpret this result as normal/abnormal . eGFR If Am (test >120 See_Comment [A utomated message] code = 79894356) The system which generated this result transmit gregory reference range : >=90 mL/min/1.7 3 m2. The reference r sravanthi was not used to interpret this result as normal/abnormal . Lab Interpretation (test Abnormal code = 88558-6) [facility] CREATININE POC docked [id number] 20:32:51 Test Item Value Reference Range Interpretation Comments Creatinine POC (test 0.5 mg/dL 0.6-1.3 L Physici an Notified code = 33298399) eGFR If non- Am >120 See_Comment [Aut omated message] (test code = 63377628) The s ystem which generated this result transmit gregory reference range : >=90 mL/min/1.7 3 m2. The reference r sravanthi was not used to interpret this result as normal/abnormal . eGFR If Am (test >120 See_Comment [A utomated message] code = 46783096) The system which generated this result transmit gregory reference range : >=90 mL/min/1.7 3 m2. The reference r sravanthi was not used to interpret this result as normal/abnormal . Lab Interpretation (test Abnormal code = 27555-9) [facility] CREATININE POC docked [id number] 20:32:51 Test Item Value Reference Range Interpretation Comments Creatinine POC (test 0.5 mg/dL 0.6-1.3 L Physici an Notified code = 31242911) eGFR If non- Am >120 See_Comment [Aut omated message] (test code = 36097261) The s ystem which generated this result transmit gregory reference range : >=90 mL/min/1.7 3 m2. The reference r sravanthi was not used to interpret this result as normal/abnormal . eGFR If Am (test >120 See_Comment [A utomated message] code = 89735965) The system which generated this result transmit gregory reference range : >=90 mL/min/1.7 3 m2. The reference r sravanthi was not used to interpret this result as normal/abnormal . Lab Interpretation (test Abnormal code = 88888-3) [facility] P[facility] docked [id number] 20:32:51 Test Item Value Reference Range Interpretation Comments Creatinine POC (test 0.5 mg/dL 0.6-1.3 L Physici an Notified code = 98221287) eGFR If non- Am >120 See_Comment [Aut omated message] (test code = 94622947) The s ystem which generated this result transmit gregory reference range : >=90 mL/min/1.7 3 m2. The reference r sravanthi was not used to interpret this result as normal/abnormal . eGFR If Am (test >120 See_Comment [A utomated message] code = 63629486) The system which generated this result transmit gregory reference range : >=90 mL/min/1.7 3 m2. The reference r sravanthi was not used to interpret this result as normal/abnormal . Lab Interpretation (test Abnormal code = 36744-6) [facility] CREATIN[facility] POC docked [id number] 20:32:51 Test Item Value Reference Range Interpretation Comments Creatinine POC (test 0.5 mg/dL 0.6-1.3 L Physici an Notified code = 70690791) eGFR If non- Am >120 See_Comment [Aut omated message] (test code = 93785920) The s ystem which generated this result transmit gregory reference range : >=90 mL/min/1.7 3 m2. The reference r sravanthi was not used to interpret this result as normal/abnormal . eGFR If Am (test >120 See_Comment [A utomated message] code = 40088962) The system which generated this result transmit gregory reference range : >=90 mL/min/1.7 3 m2. The reference r sravanthi was not used to interpret this result as normal/abnormal . Lab Interpretation (test Abnormal code = 52269-8) [facility] CREATININE POC docked [id number] 20:32:51 Test Item Value Reference Range Interpretation Comments Creatinine POC (test 0.5 mg/dL 0.6-1.3 L Physici an Notified code = 30268440) eGFR If non- Am >120 See_Comment [Aut omated message] (test code = 87022100) The s ystem which generated this result transmit gregory reference range : >=90 mL/min/1.7 3 m2. The reference r sravanthi was not used to interpret this result as normal/abnormal . eGFR If Am (test >120 See_Comment [A utomated message] code = 33743954) The system which generated this result transmit gregory reference range : >=90 mL/min/1.7 3 m2. The reference r sravanthi was not used to interpret this result as normal/abnormal . Lab Interpretation (test Abnormal code = 26928-3) [id number] 20:[facility]31 Test Item Value Reference Interpretation Comments [...] valves. Lab Interpretation Abnormal (test code = 22490-1) [id number] Test Item Value Reference Interpretation Comments [...] valves. Lab Interpretation Abnormal (test code = 52793-9) [id number] 20:34:31 Test Item Value Reference Interpretation Comments [...] valves. Lab Interpretation Abnormal (test code = 40851-8) [id number] 20:34:31 Test Item Value Reference Interpretation Comments [...] valves. Lab Interpretation Abnormal (test code = 94736-7) [id number] 20:34:31 Test Item Value Reference Interpretation Comments [...] valves. Lab Interpretation Abnormal (test code = 14375-0) [id number] 20:34:31 Test Item Value Reference Interpretation Comments [...] valves. Lab Interpretation Abnormal (test code = 82669-9) [facility][id number] 20:34:31 Test Item Value Reference Interpretation Comments [...] valves. Lab Interpretation Abnormal (test code = 93652-5) [facility][id number] 20:34:31 Test Item Value Reference Range Interpretation Comments PROTIME (BEAKER) 12.2 seconds 9.3-12.0 H Final Infor mation (test code = 759) (Auto Outp ut) INR (BEAKER) (test 1.11 See_Comment Final Inf ormation code = 370) (Auto Output) [Automated mess age] The system ic h generated this result transmitted ref erence range: <=5.90. The reference range was not used to int erpret this result as normal/abnormal . RECOMMENDED COUMADIN/WARFARIN INR THERAPY RANGESSTANDARD DOSE: 2.0 - 3.0 Includes: PROPHYLAXIS for venous thrombosis, systemic embolization; TREATMENT for venous thrombosis and/or pulmonary embolus.HIGH RISK: Target INR is 2.5-3.5 for patients with mechanical heart valves.CT, [id number] 20:32:00Unlisted Reason for Exam - Click Yes and Enter Reason Below->NoIs this for enterography?->NoWill this procedure require oral contrast?->No [facility] 1985 Sex: [...] acute intra-abdominal or intrapelvic abnormality.. Signed: Mary Khouryepjaimee Verified Date/Time: 07/30/2021 20:32:18 Reading Location: [facility] B1 C013T Transitional Reading Room Basic metabolic panel (Na, K+, Cl, CO2, Glu, Ca, BUN, Cr)2021-07-30 20:00:22 Test Item Value Reference Range Interpretation Comments Sodium (test code = 135 meq/L 395-198 5879-2) Potassium (test code = 4.2 meq/L 3.6-5.5 2823-3) Chloride (test code = 103 meq/L 98-106 2075-0) CO2 (test code = 24 meq/L -2027-9) BUN (test code = 8 mg/dL 10-26 L 3094-0) Creatinine (test code 0.75 mg/dL 0.50-1.20 = 2160-0) Glucose (test code = 77 mg/dL 70-110 2345-7) Calcium (test code = 9.1 mg/dL 8.5-10.5 14548-7) EGFR (test code = 118 mL/min/1.73 sq m [facility] [place] [address]-5) NOT ACCURATE CREATININE CLEARANCE IN PREDICTING GLOMERULAR FILTRATION RATE . ESTIMATED GFR I S NOT APPLICABLE FOR DIALYSIS PATIENTS. BRISA (test code = BRISA) [employer] Machine Operator ID - [id number] r ID - [id number] r ID - [id number] r ID - [id number] r ID - [id number] r ID - [id number] r ID - [id number] r ID - [id number] r ID - [id number] r ID - [id number] r ID - [id number] r ID - [id number] Lab Interpretation Abnormal (test code = 96623-0) [facility] (Na, K+, Cl, CO2, Glu, Ca, BUN, Cr)2021-07-30 20:00:22 Test Item Value Reference Range Interpretation Comments Sodium (test code = 135 meq/L 649-823 4093-2) Potassium (test code = 4.2 meq/L 3.6-5.5 2823-3) Chloride (test code = 103 meq/L 98-106 2075-0) CO2 (test code = 24 meq/L -2028-03) BUN (test code = 8 mg/dL 10-26 L 3094-0) Creatinine (test code 0.75 mg/dL 0.50-1.20 = 2160-0) Glucose (test code = 77 mg/dL 70-110 2345-7) Calcium (test code = 9.1 mg/dL 8.5-10.5 95693-1) EGFR (test code = 118 mL/min/1.73 [place] [address]-5) NOT ACCURATE CREATININE CLEARANCE IN PREDICTING GLOMERULAR FILTRATION RATE . ESTIMATED GFR I S NOT APPLICABLE FOR DIALYSIS PATIENTS. BRISA (test code = BRISA) [employer] Machine Operator ID - [id number] r ID - [id number] r ID - [id number] r ID - [id number] r ID - [id number] r ID - [id number] r ID - [id number] r ID - [id number] r ID - [id number] r ID - [id number] r ID - [id number] r ID - [id number] Lab Interpretation Abnormal (test code = 06779-4) [facility] (Na, K+, Cl, CO2, Glu, Ca, BUN, Cr)2021-07-30 20:00:22 Test Item Value Reference Range Interpretation Comments Sodium (test code = 135 meq/L 574-835 5920-2) Potassium (test code = 4.2 meq/L 3.6-5.5 2823-3) Chloride (test code = 103 meq/L 98-106 2074-0) CO2 (test code = 24 meq/L -29 2028-03) BUN (test code = 8 mg/dL 10-26 L 3094-0) Creatinine (test code 0.75 mg/dL 0.50-1.20 = 2160-0) Glucose (test code = 77 mg/dL 70-110 2345-7) Calcium (test code = 9.1 mg/dL 8.5-10.5 87951-0) EGFR (test code = 118 mL/min/1.[place] [address]-2) NOT ACCURATE CREATININE CLEARANCE IN PREDICTING GLOMERULAR FILTRATION RATE . ESTIMATED GFR I S NOT APPLICABLE FOR DIALYSIS PATIENTS. BRISA (test code = BRISA) [employer] Machine Operator ID - [id number] r ID - [id number] r ID - [id number] r ID - [id number] r ID - [id number] r ID - [id number] r ID - [id number] r ID - [id number] r ID - [id number] r ID - [id number] r ID - [id number] r ID - [id number] Lab Interpretation Abnormal (test code = 77321-5) [facility] metabolic panel (Na, K+, Cl, CO2, Glu, Ca, BUN, Cr)2021-07-30 20:00:22 Test Item Value Reference Range Interpretation Comments Sodium (test code = 135 meq/L 940-544 7988-2) Potassium (test code = 4.2 meq/L 3.6-5.5 2823-3) Chloride (test code = 103 meq/L 98-106 2075-0) CO2 (test code = 24 meq/L 20-29 2028-9) BUN (test code = 8 mg/dL 10-26 L 3094-0) Creatinine (test code 0.75 mg/dL 0.50-1.20 = 2160-0) Glucose (test code = 77 mg/dL 70-110 2345-7) Calcium (test code = 9.1 mg/dL 8.5-10.5 46314-7) EGFR (test code = 118 mL/min/1.[place] [address]-6) NOT ACCURATE CREATININE CLEARANCE IN PREDICTING GLOMERULAR FILTRATION RATE . ESTIMATED GFR I S NOT APPLICABLE FOR DIALYSIS PATIENTS. BRISA (test code = BRISA) [employer] Machine Operator ID - [id number] r ID - [id number] r ID - [id number] r ID - [id number] r ID - [id number] r ID - [id number] r ID - [id number] r ID - [id number] r ID - [id number] r ID - [id number] r ID - [id number] r ID - [id number] Lab Interpretation Abnormal (test code = 62547-1) [facility] metabolic panel (Na, K+, Cl, CO2, Glu, Ca, BUN, Cr)2021-07-30 20:00:22 Test Item Value Reference Range Interpretation Comments Sodium (test code = 135 meq/L 060-400 5447-2) Potassium (test code = 4.2 meq/L 3.6-5.5 2823-3) Chloride (test code = 103 meq/L 98-106 2075-0) CO2 (test code = 24 meq/L -2027-9) BUN (test code = 8 mg/dL 10-26 L 3094-0) Creatinine (test code 0.75 mg/dL 0.50-1.20 = 2160-0) Glucose (test code = 77 mg/dL 70-110 2345-7) Calcium (test code = 9.1 mg/dL 8.5-10.5 84979-6) EGFR (test code = 118 mL/min/1.73 sq m [facility] [place] [address]-2) NOT ACCURATE CREATININE CLEARANCE IN PREDICTING GLOMERULAR FILTRATION RATE . ESTIMATED GFR I S NOT APPLICABLE FOR DIALYSIS PATIENTS. BRISA (test code = BRISA) Automatic [employer] Machine Operator ID - [id number] r ID - [id number] r ID - [id number] r ID - [id number] r ID - [id number] r ID - [id number] r ID - [id number] r ID - [id number] r ID - [id number] r ID - [id number] r ID - [id number] r ID - [id number] Lab Interpretation Abnormal (test code = 36723-7) [facility] metabolic panel (Na, K+, Cl, CO2, Glu, Ca, BUN, Cr)2021-07-30 20:00:22 Test Item Value Reference Range Interpretation Comments Sodium (test code = 135 meq/L 918-822 7396-2) Potassium (test code = 4.2 meq/L 3.6-5.5 2823-3) Chloride (test code = 103 meq/L 98-106 2075-0) CO2 (test code = 24 meq/L -2028-03) BUN (test code = 8 mg/dL 10-26 L 3094-0) Creatinine (test code 0.75 mg/dL 0.50-1.20 = 2160-0) Glucose (test code = 77 mg/dL 70-110 2345-7) Calcium (test code = 9.1 mg/dL 8.5-10.5 83240-1) EGFR (test code = 118 mL/min/1.[place] [address]-2) NOT ACCURATE CREATININE CLEARANCE IN PREDICTING GLOMERULAR FILTRATION RATE . ESTIMATED GFR I S NOT APPLICABLE FOR DIALYSIS PATIENTS. BRISA (test code = BRISA) [employer] Machine Operator ID - [id number] r ID - [id number] r ID - [id number] r ID - [id number] r ID - [id number] r ID - [id number] r ID - [id number] r ID - [id number] r ID - [id number] r ID - [id number] r ID - [id number] r ID - [id number] Lab Interpretation Abnormal (test code = 74760-2) [facility] (Na, K+, Cl, CO2, Glu, Ca, BUN, Cr)2021-07-30 20:00:22 Test Item Value Reference Range Interpretation Comments Sodium (test code = 135 meq/L 004-455 8312-2) Potassium (test code = 4.2 meq/L 3.6-5.5 2823-3) Chloride (test code = 103 meq/L 98-106 2074-0) CO2 (test code = 24 meq/L -29 2028-03) BUN (test code = 8 mg/dL 10-26 L 3094-0) Creatinine (test code 0.75 mg/dL 0.50-1.20 = 2160-0) Glucose (test code = 77 mg/dL 70-110 2345-7) Calcium (test code = 9.1 mg/dL 8.5-10.5 53167-2) EGFR (test code = 118 mL/min/1.[place] [address]-7) NOT ACCURATE CREATININE CLEARANCE IN PREDICTING GLOMERULAR FILTRATION RATE . ESTIMATED GFR I S NOT APPLICABLE FOR DIALYSIS PATIENTS. BRISA (test code = BRISA) Automatic [employer] Machine Operator ID - [id number] r ID - [id number] r ID - [id number] r ID - [id number] r ID - [id number] r ID - [id number] r ID - [id number] r ID - [id number] r ID - [id number] r ID - [id number] r ID - [id number] r ID - [id number] Lab Interpretation Abnormal (test code = 66961-4) [facility] METABOLIC [id number] 20:00:22 Test Item Value Reference Range Interpretation [...] S NOT APPLICABLE FOR DIALYSIS PATIEN TS. Automatic Riveting Machine Operator ID - [id number] ID - [id number] ID - [id number] ID - [id number] ID - [id number] ID - [id number] ID - [id number] ID - [id number] ID - [id number] ID - [id number] ID - [id number] ID - [id number] with platelet count + automated [id number] 19:43:00 Test Item Value Reference Range Interpretation Comments WBC (test code = 6690-2) 6.2 See_Comment [A utomated message] The system [employer] generated this result transmitted ref erence range: 4.0 - 10 .0 K/L. The refe rence range was not u sed to interpret this result as normal/abnor mal. RBC (test code = 789-8) 3.93 See_Comment L [Au tomated message] The system [employer] generated this result transmitted ref erence range: 4.20 - 5 .80 M/L. The refe rence range was not u sed to interpret this result as normal/abnor mal. MCHC (test code = 786-4) 34.2 See_Comment L [A utomated message] The system [employer] generated this result transmitted ref erence range: [...] See_Comment [Aut omated message] 777-3) The system [employer] generated this result transmitted ref erence range: 150 - 43 0 K/CU MM. The referen ce range was not u sed to interpret this result as normal/abnor mal. MPV (test code = 8.7 fL 6.0-11.5 50526-1) nRBC (test code = 413) 0 See_Comment [Aut omated message] The system [employer] generated this result transmitted ref erence range: [...] See_Comment [Aut omated message] 670) The system [employer] generated this result transmitted ref erence range: 1.80 - 8 .00 K/L. The refe rence range was not u sed to interpret this result as normal/abnor mal. # Lymphs (test code = 2.15 See_Comment [Auto mated message] 414) The system [employer] generated this result transmitted ref erence range: 1.48 - 4 .50 K/L. The refe rence range was not u sed to interpret this result as normal/abnor mal. # Monos (test code = 0.49 See_Comment [Autom ated message] 415) The system [employer] generated this result transmitted ref erence range: 0.00 - 1 .30 K/L. The refe rence range was not u sed to interpret this result as normal/abnor mal. # Eos (test code = 416) 0.51 See_Comment H [Au tomated message] The system [employer] generated this result transmitted ref erence range: 0.00 - 0 .50 K/L. The refe rence range was not u sed to interpret this result as normal/abnor mal. # Baso (test code = 417) 0.05 See_Comment [A utomated message] The system [employer] generated this result transmitted ref erence range: 0.00 - 0 .20 K/L. The refe rence range was not u sed to interpret this result as normal/abnor mal. Immature 0 % 0-0 Granulocytes-Relative (test code = 2801) Lab Interpretation (test Abnormal code = 73694-5) [facility] with platelet count + automated [id number] 19:43:00 Test Item Value Reference Range Interpretation Comments WBC (test code = 6690-2) 6.2 See_Comment [A utomated message] The system [employer] generated this result transmitted ref erence range: 4.0 - 10 .0 K/L. The refe rence range was not u sed to interpret this result as normal/abnor mal. RBC (test code = 789-8) 3.93 See_Comment L [Au tomated message] The system [employer] generated this result transmitted ref erence range: 4.20 - 5 .80 M/L. The refe rence range was not u sed to interpret this result as normal/abnor mal. MCHC (test code = 786-4) 34.2 See_Comment L [A utomated message] The system [employer] generated this result transmitted ref erence range: [...] See_Comment [Aut omated message] 777-3) The system [employer] generated this result transmitted ref erence range: 150 - 43 0 K/CU MM. The referen ce range was not u sed to interpret this result as normal/abnor mal. MPV (test code = 8.7 fL 6.0-11.5 72830-4) nRBC (test code = 413) 0 See_Comment [Aut omated message] The system [employer] generated this result transmitted ref erence range: [...] See_Comment [Aut omated message] 670) The system [employer] generated this result transmitted ref erence range: 1.80 - 8 .00 K/L. The refe rence range was not u sed to interpret this result as normal/abnor mal. # Lymphs (test code = 2.15 See_Comment [Auto mated message] 414) The system [employer] generated this result transmitted ref erence range: 1.48 - 4 .50 K/L. The refe rence range was not u sed to interpret this result as normal/abnor mal. # Monos (test code = 0.49 See_Comment [Autom ated message] 415) The system [employer] generated this result transmitted ref erence range: 0.00 - 1 .30 K/L. The refe rence range was not u sed to interpret this result as normal/abnor mal. # Eos (test code = 416) 0.51 See_Comment H [Au tomated message] The system [employer] generated this result transmitted ref erence range: 0.00 - 0 .50 K/L. The refe rence range was not u sed to interpret this result as normal/abnor mal. # Baso (test code = 417) 0.05 See_Comment [A utomated message] The system [employer] generated this result transmitted ref erence range: 0.00 - 0 .20 K/L. The refe rence range was not u sed to interpret this result as normal/abnor mal. Immature 0 % 0-0 Granulocytes-Relative (test code = 2801) Lab Interpretation (test Abnormal code = 76092-7) [facility] with platelet count + automated [id number] 19:43:00 Test Item Value Reference Range Interpretation Comments WBC (test code = 6690-2) 6.2 See_Comment [A utomated message] The system [employer] generated this result transmitted ref erence range: 4.0 - 10 .0 K/L. The refe rence range was not u sed to interpret this result as normal/abnor mal. RBC (test code = 789-8) 3.93 See_Comment L [Au tomated message] The system [employer] generated this result transmitted ref erence range: 4.20 - 5 .80 M/L. The refe rence range was not u sed to interpret this result as normal/abnor mal. MCHC (test code = 786-4) 34.2 See_Comment L [A utomated message] The system [employer] generated this result transmitted ref erence range: [...] See_Comment [Aut omated message] 777-3) The system [employer] generated this result transmitted ref erence range: 150 - 43 0 K/CU MM. The referen ce range was not u sed to interpret this result as normal/abnor mal. MPV (test code = 8.7 fL 6.0-11.5 28497-9) nRBC (test code = 413) 0 See_Comment [Aut omated message] The system [employer] generated this result transmitted ref erence range: [...] See_Comment [Aut omated message] 670) The system [employer] generated this result transmitted ref erence range: 1.80 - 8 .00 K/L. The refe rence range was not u sed to interpret this result as normal/abnor mal. # Lymphs (test code = 2.15 See_Comment [Auto mated message] 414) The system [employer] generated this result transmitted ref erence range: 1.48 - 4 .50 K/L. The refe rence range was not u sed to interpret this result as normal/abnor mal. # Monos (test code = 0.49 See_Comment [Autom ated message] 415) The system [employer] generated this result transmitted ref erence range: 0.00 - 1 .30 K/L. The refe rence range was not u sed to interpret this result as normal/abnor mal. # Eos (test code = 416) 0.51 See_Comment H [Au tomated message] The system [employer] generated this result transmitted ref erence range: 0.00 - 0 .50 K/L. The refe rence range was not u sed to interpret this result as normal/abnor mal. # Baso (test code = 417) 0.05 See_Comment [A utomated message] The system [employer] generated this result transmitted ref erence range: 0.00 - 0 .20 K/L. The refe rence range was not u sed to interpret this result as normal/abnor mal. Immature 0 % 0-0 Granulocytes-Relative (test code = 2801) Lab Interpretation (test Abnormal code = 78969-1) [facility] with platelet count + automated [id number] 19:43:00 Test Item Value Reference Range Interpretation Comments WBC (test code = 6690-2) 6.2 See_Comment [A utomated message] The system [employer] generated this result transmitted ref erence range: 4.0 - 10 .0 K/L. The refe rence range was not u sed to interpret this result as normal/abnor mal. RBC (test code = 789-8) 3.93 See_Comment L [Au tomated message] The system [employer] generated this result transmitted ref erence range: 4.20 - 5 .80 M/L. The refe rence range was not u sed to interpret this result as normal/abnor mal. MCHC (test code = 786-4) 34.2 See_Comment L [A utomated message] The system [employer] generated this result transmitted ref erence range: [...] See_Comment [Aut omated message] 777-3) The system [employer] generated this result transmitted ref erence range: 150 - 43 0 K/CU MM. The referen ce range was not u sed to interpret this result as normal/abnor mal. MPV (test code = 8.7 fL 6.0-11.5 94676-6) nRBC (test code = 413) 0 See_Comment [Aut omated message] The system [employer] generated this result transmitted ref erence range: [...] See_Comment [Aut omated message] 670) The system [employer] generated this result transmitted ref erence range: 1.80 - 8 .00 K/L. The refe rence range was not u sed to interpret this result as normal/abnor mal. # Lymphs (test code = 2.15 See_Comment [Auto mated message] 414) The system [employer] generated this result transmitted ref erence range: 1.48 - 4 .50 K/L. The refe rence range was not u sed to interpret this result as normal/abnor mal. # Monos (test code = 0.49 See_Comment [Autom ated message] 415) The system [employer] generated this result transmitted ref erence range: 0.00 - 1 .30 K/L. The refe rence range was not u sed to interpret this result as normal/abnor mal. # Eos (test code = 416) 0.51 See_Comment H [Au tomated message] The system [employer] generated this result transmitted ref erence range: 0.00 - 0 .50 K/L. The refe rence range was not u sed to interpret this result as normal/abnor mal. # Baso (test code = 417) 0.05 See_Comment [A utomated message] The system [employer] generated this result transmitted ref erence range: 0.00 - 0 .20 K/L. The refe rence range was not u sed to interpret this result as normal/abnor mal. Immature 0 % 0-0 Granulocytes-Relative (test code = 2801) Lab Interpretation (test Abnormal code = 94260-6) [facility] with platelet count + automated [id number] 19:43:00 Test Item Value Reference Range Interpretation Comments WBC (test code = 6690-2) 6.2 See_Comment [A utomated message] The system [employer] generated this result transmitted ref erence range: 4.0 - 10 .0 K/L. The refe rence range was not u sed to interpret this result as normal/abnor mal. RBC (test code = 789-8) 3.93 See_Comment L [Au tomated message] The system [employer] generated this result transmitted ref erence range: 4.20 - 5 .80 M/L. The refe rence range was not u sed to interpret this result as normal/abnor mal. MCHC (test code = 786-4) 34.2 See_Comment L [A utomated message] The system [employer] generated this result transmitted ref erence range: [...] code = 308 See_Comment [Aut omated message] 997-3) The system [employer] generated this result transmitted ref erence range: 150 - 43 0 K/CU MM. The referen ce range was not u sed to interpret this result as normal/abnor mal. MPV (test code = 8.7 fL 6.0-11.5 56239-6) nRBC (test code = 413) 0 See_Comment [Aut omated message] The system [employer] generated this result transmitted ref erence range: [...] See_Comment [Aut omated message] 670) The system [employer] generated this result transmitted ref erence range: 1.80 - 8 .00 K/L. The refe rence range was not u sed to interpret this result as normal/abnor mal. # Lymphs (test code = 2.15 See_Comment [Auto mated message] 414) The system [employer] generated this result transmitted ref erence range: 1.48 - 4 .50 K/L. The refe rence range was not u sed to interpret this result as normal/abnor mal. # Monos (test code = 0.49 See_Comment [Autom ated message] 415) The system [employer] generated this result transmitted ref erence range: 0.00 - 1 .30 K/L. The refe rence range was not u sed to interpret this result as normal/abnor mal. # Eos (test code = 416) 0.51 See_Comment H [Au tomated message] The system [employer] generated this result transmitted ref erence range: 0.00 - 0 .50 K/L. The refe rence range was not u sed to interpret this result as normal/abnor mal. # Baso (test code = 417) 0.05 See_Comment [A utomated message] The system [employer] generated this result transmitted ref erence range: 0.00 - 0 .20 K/L. The refe rence range was not u sed to interpret this result as normal/abnor mal. Immature 0 % 0-0 Granulocytes-Relative (test code = 2801) Lab Interpretation (test Abnormal code = 45643-4) [facility] with platelet count + automated [id number] 19:43:00 Test Item Value Reference Range Interpretation Comments WBC (test code = 6690-2) 6.2 See_Comment [A utomated message] The system [employer] generated this result transmitted ref erence range: 4.0 - 10 .0 K/L. The refe rence range was not u sed to interpret this result as normal/abnor mal. RBC (test code = 789-8) 3.93 See_Comment L [Au tomated message] The system [employer] generated this result transmitted ref erence range: 4.20 - 5 .80 M/L. The refe rence range was not u sed to interpret this result as normal/abnor mal. MCHC (test code = 786-4) 34.2 See_Comment L [A utomated message] The system [employer] generated this result transmitted ref erence range: [...] See_Comment [Aut omated message] 777-3) The system [employer] generated this result transmitted ref erence range: 150 - 43 0 K/CU MM. The referen ce range was not u sed to interpret this result as normal/abnor mal. MPV (test code = 8.7 fL 6.0-11.5 79920-4) nRBC (test code = 413) 0 See_Comment [Aut omated message] The system [employer] generated this result transmitted ref erence range: [...] See_Comment [Aut omated message] 670) The system [employer] generated this result transmitted ref erence range: 1.80 - 8 .00 K/L. The refe rence range was not u sed to interpret this result as normal/abnor mal. # Lymphs (test code = 2.15 See_Comment [Auto mated message] 414) The system [employer] generated this result transmitted ref erence range: 1.48 - 4 .50 K/L. The refe rence range was not u sed to interpret this result as normal/abnor mal. # Monos (test code = 0.49 See_Comment [Autom ated message] 415) The system [employer] generated this result transmitted ref erence range: 0.00 - 1 .30 K/L. The refe rence range was not u sed to interpret this result as normal/abnor mal. # Eos (test code = 416) 0.51 See_Comment H [Au tomated message] The system [employer] generated this result transmitted ref erence range: 0.00 - 0 .50 K/L. The refe rence range was not u sed to interpret this result as normal/abnor mal. # Baso (test code = 417) 0.05 See_Comment [A utomated message] The system [employer] generated this result transmitted ref erence range: 0.00 - 0 .20 K/L. The refe rence range was not u sed to interpret this result as normal/abnor mal. Immature 0 % 0-0 Granulocytes-Relative (test code = 2801) Lab Interpretation (test Abnormal code = 87751-0) [facility] with platelet count + automated [id number] 19:43:00 Test Item Value Reference Range Interpretation Comments WBC (test code = 6690-2) 6.2 See_Comment [A utomated message] The system [employer] generated this result transmitted ref erence range: 4.0 - 10 .0 K/L. The refe rence range was not u sed to interpret this result as normal/abnor mal. RBC (test code = 789-8) 3.93 See_Comment L [Au tomated message] The system [employer] generated this result transmitted ref erence range: 4.20 - 5 .80 M/L. The refe rence range was not u sed to interpret this result as normal/abnor mal. MCHC (test code = 786-4) 34.2 See_Comment L [A utomated message] The system [employer] generated this result transmitted ref erence range: [...] See_Comment [Aut omated message] 777-3) The system [employer] generated this result transmitted ref erence range: 150 - 43 0 K/CU MM. The referen ce range was not u sed to interpret this result as normal/abnor mal. MPV (test code = 8.7 fL 6.0-11.5 73127-8) nRBC (test code = 413) 0 See_Comment [Aut omated message] The system [employer] generated this result transmitted ref erence range: [...] See_Comment [Aut omated message] 670) The system [employer] generated this result transmitted ref erence range: 1.80 - 8 .00 K/L. The refe rence range was not u sed to interpret this result as normal/abnor mal. # Lymphs (test code = 2.15 See_Comment [Auto mated message] 414) The system [employer] generated this result transmitted ref erence range: 1.48 - 4 .50 K/L. The refe rence range was not u sed to interpret this result as normal/abnor mal. # Monos (test code = 0.49 See_Comment [Autom ated message] 415) The system [employer] generated this result transmitted ref erence range: 0.00 - 1 .30 K/L. The refe rence range was not u sed to interpret this result as normal/abnor mal. # Eos (test code = 416) 0.51 See_Comment H [Au tomated message] The system [employer] generated this result transmitted ref erence range: 0.00 - 0 .50 K/L. The refe rence range was not u sed to interpret this result as normal/abnor mal. # Baso (test code = 417) 0.05 See_Comment [A utomated message] The system [employer] generated this result transmitted ref erence range: 0.00 - 0 .20 K/L. The refe rence range was not u sed to interpret this result as normal/abnor mal. Immature 0 % 0-0 Granulocytes-Relative (test code = 2801) Lab Interpretation (test Abnormal code = 01785-3) [facility] W/PLT COUNT & AUTO [id number] 19:43:00 Test Item Value Reference Range Interpretation [...] PERCENT (BEAKER) (test code = 2801) SURGICAL [id number] 07:40:00 RUN DATE: 09/19/18 [facility] *LIVE* PAGE 1 RUN TIME: 740 Specimen Inquiry RUN USER: INTERFACE --------- ---PATIENT: VERÓNICA NUNN LOC: [facility] U #: [id number] AGE/SX: 32/M ROOM: [facility] RE09/15/18REG DR: Keith Swann MD : 84 BED: 1 DIS: 09/16/18 STATUS: DIS IN TLOC: SPEC #: [id number] RECD: 09/15/18 STATUS: [facility] #: [id number] DONA: 09/15/18 [facility] [address]: Keith Swann MD ENTERED: 09/18/18 SP TYPE: SURG SPEC OTHR DR: No Primary or Family Physician Self Referred Gale Dowling MDORDERED: GM LEVEL 4 CODES: [id number] - ESOPHAGUS, NOS COPIES TO: No Primary or Family Physician Self Referred Keith Swann MD [address] [place] [address] Gale Dowling MD [address] [address] PROCEDURES: GM LEVEL 4 (Incomplete) TISSUES: 1. [...] CONTINUED ON NEXT PAGE RUN DATE: 09/19/18 [facility] *LIVE* PAGE 2 RUN TIME: 740 Specimen Inquiry RUN USER: INTERFACE SPEC #: [id number] PATIENT: VERÓNICA NUNN #[id number] (Continued) POST-OP DIAGNOSIS Esophagitis, supertial tear in the esophagus, R/O Flor, esosinophilic es PRE-OP DIAGNOSIS Hematemesis Signed SIGNATURE ON FILE Rundell,Joce N DO 09/19/18 0740 END OF REPORT BASIC METABOLIC [id number] 08:40:00 Test Item Value Reference Range Interpretation [...] 9.1 mg/dL 8.0-10.5 N CA) CBC W/AUTO [id number] 08:20:00 Test Item Value Reference Range Interpretation [...] (test code NO = MDIFF) CBC W/AUTO [id number] 22:25:00 Test Item Value Reference Range Interpretation [...] (test code NO = MDIFF) CBC W/AUTO [id number] 12:50:00 Test Item Value Reference Range Interpretation [...] (test code NO = MDIFF) CBC W/AUTO [id number] 07:24:00 Test Item Value Reference Range Interpretation [...] REQUIRED (test NO code = MDIFF) PROTHROMBIN [id number] 00:10:00 Test Item Value Reference Range Interpretation [...] (to prevent recurrent infar ct). CBC W/AUTO [id number] 00:03:00 Test Item Value Reference Range Interpretation [...] REQUIRED (test NO code = MDIFF) PROTHROMBIN [id number] 18:57:00 Test Item Value Reference Range Interpretation Comments PT PATIENT (test code = PTP) 13.1 SECONDS 9.3-12.9 H INTERNATIONAL NORMAL RATIO 1.14 INR Unit 0.8-1.2 N (test code = INR) URINALYSIS [id number] 18:56:00 Test Item Value Reference Range Interpretation [...] code = LEUU) - CT ABD PELVIS [id number] 16:49:00 Name: VERÓNICA NUNN [facility] : 1985 Age/S: 32 / M [address] Unit #: [id number] Loc: [place] [address] Phys: Ivette Choudhary MD Acct: [id number] Dis Date: Status: REG ER PHONE #: [phone] Exam Date: 09/14/2018 1639 FAX #: Reason: abd pain unable to give further info 2/2 mrEXAMS: CPT: [id number] CT ABD PELVIS W/CONT 16837 EXAMINATION: - CT ABD PELVIS W/CONT. LOCATION: [...] 1 Signed Report (CONTINUED) Name: VERÓNICA NUNN [facility] : 1985 Age/S: 32 / M [address] Unit #: [id number] Loc: [place] [address] Phys: Ivette Choudhary MD Acct: [id number] Dis Date: Status: REG ER PHONE #: [phone] Exam Date: 09/14/2018 1636 FAX #: Reason: abd pain unable to give further info 2/2 mr EXAMS: CPT: [id number] CT ABD PELVIS W/CONT 42052 (Continued) CC: Ivette Choudhary MD Technologist:Mariely Brar, RT(R)(CT) CTDI: DLP: Trnscb Date/Time: 09/14/2018 (9193) [email or web address] Orig Print D/T: S: 09/14/2018 (1051) CTDI: DLP: PAGE 2 Signed ReportBASIC METABOLIC [id number] 16:06:00 Test Item Value Reference Range Interpretation [...] CA) 9.7 MG/DL 8.5-10.1 N HEPATIC FUNCTION [id number] 16:06:00 Test Item Value Reference Range Interpretation [...] 89 Unit/L 50-136 N code = ALKP) [id number] 16:06:00 Test Item Value Reference Range Interpretation Comments LIPASE (test code = LIP) 173 Unit/L 114-286 N BASIC METABOLIC [id number] 15:56:00 Test Item Value Reference Range Interpretation [...] CA) 9.7 MG/DL 8.5-10.1 N HEPATIC FUNCTION [id number] 15:56:00 Test Item Value Reference Range Interpretation [...] TOTAL (test code Unit/L 50-136 = ALKP) [id number] 15:56:00 Test Item Value Reference Range Interpretation Comments LIPASE (test code = LIP) 173 Unit/L 114-286 N CBC W/AUTO [id number] 15:47:00 Test Item Value Reference Range Interpretation [...]
--- NOTE | 2022-03-28 10:42 | RAD REPORT ---
EXAM DESCRIPTION: RAD - Chest Single View - 03/28/2022 10:11 am CLINICAL HISTORY: FEVER, vomiting COMPARISON: Portable 03/09/2022 TECHNIQUE: AP portable chest image was obtained 03/28/2022 10:11 am . FINDINGS: Lung volumes are low but clear of findings for infectious or aspiration pneumonia. Minimal stranding in the lung parenchyma is not clearly different from baseline. Failure and volume overload are not suspected. Heart and vasculature are normal. No measurable pleural effusion and no pneumothorax. No acute bony abnormality seen. No acute aortic findings suspected. There is prominent gas distention of bowel in the upper abdomen only partially imaged. This could be stomach or transverse colon. IMPRESSION: No acute cardiopulmonary process. Prominent gas distention of bowel in the upper abdomen only partially imaged.
[2022-03-28 10:43] LABS: SARS-CoV-2 Antigen Rapid Res Negative (Negative)
[2022-03-28 12:39] LABS: Absolute Lymphocytes (CBC) 0.8 K/uL (0.7-4.9); Hematocrit 39.7 % (39.6-49.0); Lymphocytes % 10.9 % (15.3-44.8); MCV 87.5 fL (80-100); MPV 6.6 fL (7.6-11.3); RBC Red Blood Cell Count 4.54 M/uL (4.33-5.43)
[2022-03-28 12:42] LABS: Protime INR 1.16
[2022-03-28 12:54] LABS: Albumin 3.4 g/dL (3.4-5.0); Bilirubin Total 0.5 mg/dL (0.2-1.0); Potassium 3.1 mmol/L (3.5-5.1); Protein, Total 8.1 g/dL (6.4-8.2)
--- NOTE | 2022-03-28 13:21 | RAD REPORT ---
EXAM DESCRIPTION: CT - Abdomen Pelvis W Contrast - 03/28/2022 12:54 pm CLINICAL HISTORY: fever, vomiting, sacral ulcer COMPARISON: Abdomen Single View dated 03/22/2022; Abdomen 1 View (KUB) dated 03/22/2022; Abdomen 1 Vie w (KUB) dated 03/20/2022 TECHNIQUE: Biphasic, helical CT imaging of the abdomen and pelvis was performed following 100 ml non -ionic IV contrast. No oral contrast was administered for this study. All CT scans are performed using dose optimization technique as appropriate and may include automated exposure control or mA/KV adjustment according to patient size. FINDINGS: No suspicious findings in the lung bases. The liver, spleen, and pancreas show no suspicious findings. Gallbladder and biliary tree are also wi thout suspicious finding. Symmetric renal function is seen with no hydronephrosis or suspicious renal mass. No pyelonephritis o r acute parenchymal process. No bladder abnormalities. No adrenal abnormalities. There is very pronounced dilation of the stomach. Air, fluid and some food materials are present with in the stomach. Patient has a PEG tube in place. The positioning of the PEG tube appears to be within the duodenum or possibly distal most antrum of the stomach. This is likely acting has a focus of obs truction for p.o. intake. Gastric byers do not appear thickened or edematous. No acute small bowel finding. There is a large amount of stool present throughout the colon. Patient has a tortuous and redundant rectosigmoid colon. There is a large amount of contrast in the colon fro m splenic flexure to the distal rectum. Source of the contrast is unknown. There was a minimal amount of contrast injected for a Gastrografin study on March 22. The volume of contrast in the colon i s greater than the amount administered for the tube check study. No free air, free fluid or inflammatory stranding. No hernia, mass or bulky lymphadenopathy. No new bone finding. IMPRESSION: Prominent dilation of the stomach which is filled with air, fluid and a small amount of solid food. No gastric wall thickening or mass identifiable. Patient's PEG tube appears be inflated within the duodenum or possibly distal most antrum. This is li fuad obstructing the outflow of gastric content. Large amount of stool is present distending the colon. There is contrast in the colon from splenic fl exure to distal rectum. Source of the contrast is unknown. The amount of contrast present is greater than the small amount of contrast administered for the PEG tube check on March 22.
[2022-03-28] MEDS ORDERED: ETOMIDATE 20 MG/10 ML VIAL IV ONE (13:36)
[2022-03-28] MEDS ORDERED: RSI MEDICATION KIT IV ONE (13:38)
[2022-03-28] MEDS ORDERED: NA CHLORIDE 0.9% 2,000 ML ONE (13:46)
[2022-03-28] MEDS ORDERED: propofoL 1,000 MG/100 ML VIAL IV ONE ×2 (13:51→23:04)
[2022-03-28 13:56] LABS: Urine Blood Trace-intact (Negative); Urine Glucose Negative (Negative); Urine Protein 1+ (Negative); Urine Specific Gravity 1.025 (1.005-1.030)
[2022-03-28 14:05] LABS: Calcium Oxalate Crystals- Ur Moderate /HPF (None Seen); Urine Bacteria <20 /HPF (<20); Urine Mucus 4+ /HPF (None Seen); Urine RBC >50 /HPF (None Seen)
--- NOTE | 2022-03-28 14:40 | ER ---
Nurse's Notes [facility] Name: Alexy Mock Age: 36 yrs Sex: Male : 1985 Arrival Date: 03/28/2022 Time: 09:16 Bed 3 Private MD: Diagnosis: Severe sepsis without septic shock;Acute respiratory failure with hypoxia;Epileptic seizures related to external causes, not intractable, without status epilepticus;Cellulitis of buttock Presentation: 03/28 09:16 Chief complaint: EMS states: vomiting that began today. [facility] states that ss patient usually gets his meals through a peg tube, but recently has been trying oral feedings. Coronavirus screen: Client denies travel out of the [place] in the last 14 days. Ebola Screen: Patient denies exposure to infectious person. Patient denies travel to an Ebola-affected area in the 21 days before illness onset. Initial Sepsis Screen: Does the patient have a suspected source of infection? Yes: Skin breakdown/wound. Risk Assessment: Do you want to hurt yourself or someone else? Unable to obtain. Onset of symptoms was March 28, 2022. Transition of care: patient was received from another setting of care (long-term care facility), [facility]. 09:16 Method Of Arrival: EMS: [facility] ss 09:16 Acuity: ELROY 3 ss 13:27 Initial Sepsis Screen: Does the patient meet any 2 criteria? HR > 90 bpm. db 13:27 Acuity: ELROY 2 db Triage Assessment: 20:41 GI: Reports. kd3 Historical: - Allergies: 09:17 No Known Allergies; ss - PMHx: 09:17 pressure ulcer sacral region; MR; epilepsy; ENCEPHALOPATHY; DYSPHAGIA; Bipolar ss disorder; Anemia; adhd; abnormal liver function; - PSHx: 09:17 G tube; ss - Immunization history:: Adult Immunizations unknown. - Family history:: not pertinent. - Social history:: Smoking status: Patient denies any tobacco usage or history of. - History obtained from: EMS. Screenin:00 Abuse screen: Denies threats or abuse. Denies injuries from another. Nutritional tw2 screening: On peg tube feeds. Tuberculosis screening: No symptoms or risk factors identified. Fall Risk Gait-. Assessment: 10:00 General: Appears uncomfortable, emaciated, Behavior is agitated. Pain: Unable to use tw2 pain scale. non verbal. Neuro: Level of Consciousness is awake, Oriented to unable to assess due to nonverbal. Cardiovascular: Rhythm is sinus tachycardia. Respiratory: Respiratory pattern is tachypnea GI: PEG tube clamped. : Parent/caregiver report the patient having incontinence. EENT: No deficits noted. Derm: Decubitus is draining moderate amount malodorous, serosanguinous. Musculoskeletal:. 13:20 Reassessment: provider at bedside at this time. tw2 13:30 Reassessment: Pt moved to ER bed 3 for intubation and central line placement. ph 14:00 Reassessment: Patient appears in no apparent distress at this time. Patient and/or ph family updated on plan of care and expected duration. Pain level reassessed. Pt intubated and sedated. General: Appears in no apparent distress. ill, emaciated, Behavior is pt intubated'. Pain: Unable to use pain scale. Patient is unresponsive. Neuro: Level of Consciousness is unresponsive, pt sedated . Cardiovascular: Rhythm is sinus tachycardia. Respiratory: Airway is patent Respiratory effort is even, Respiratory pattern is regular, Ventilator assessment: ET Tube: 7.5 21cm. at gum line. 14:00 Derm: Decubitus located on sacrum is draining moderate amount malodorous, ph serosanguinous. Musculoskeletal: pt noted to be contracted. 15:44 Reassessment: No changes from previously documented assessment. Patient and/or family ph updated on plan of care and expected duration. Pain level reassessed. 17:00 Reassessment: Patient appears in no apparent distress at this time. Patient and/or ph family updated on plan of care and expected duration. Pain level reassessed. Pt remains intubated and sedated, family at bedside, awaiting ICU bed. 19:22 General: PT laying quietly and still, vital signs stable. pt intubated and sedated with kd3 propofol. . Respiratory: Ventilator assessment: ET Tube: 7.5 21cm. at gum line. PEEP: 5. : Mcnair in place Urine is clear. Vital Signs: 09:30 BP 125 / 92; Pulse 123; Resp 14; Temp 99.4(A); Pulse Ox 98% on R/A; ss 10:30 BP 139 / 103; Pulse 116; Pulse Ox 100% on R/A; ss 12:31 BP 121 / 96; Pulse 135; Pulse Ox 95% on R/A; ss 13:15 BP 151 / 108; Pulse 146; Resp 9; Pulse Ox 100% on 5 lpm NC; tw2 13:30 BP 153 / 109; Pulse 145; Resp 9; Pulse Ox 99% on 5 lpm NC; ss 14:10 BP 132 / 107; Pulse 121; Resp 16; Temp 98.6(C); Pulse Ox 100% on ETT vent; ph 14:16 Weight 50 kg; ph 15:30 BP 142 / 114; Pulse 115; Resp 15; Temp 98.5(C); Pulse Ox 100% on ETT vent; db 16:00 BP 140 / 110; Pulse 113; Resp 16; Temp 98.3(C); Pulse Ox 100% on 45% FiO2 ETT vent; ph 16:30 BP 143 / 109; Pulse 104; Resp 15; Pulse Ox 100% on 45% FiO2 ETT vent; ph 17:00 BP 141 / 114; Pulse 102; Resp 15; Temp 98.2; Pulse Ox 100% on 45% FiO2 ETT vent; ph 17:30 BP 145 / 104; Pulse 106; Resp 15; Temp 98.2(C); Pulse Ox 100% on 45% FiO2 ETT vent; ph 18:00 BP 137 / 112; Pulse 111; Resp 16; Temp 98.6; Pulse Ox 100% on 45% FiO2 ETT vent; ph 18:32 BP 155 / 114; Pulse 110; Resp 18; Temp 98.2(C); Pulse Ox 100% on 45% FiO2 ETT vent; ph 19:22 BP 137 / 112; Pulse 108; Resp 10; Temp 97.6(C); Pulse Ox 100% on 40% FiO2 ETT vent; kd3 19:46 Resp 15; ha1 Vitals: 14:10 Cardiac Rhythm Assessment Sinus tach. ph ED Course: 09:16 Patient arrived in ED. ss 09:16 Dani Hodge MD is Attending Physician. rn 09:16 Chioma Her, GILLIAN is Primary Nurse. ko1 09:17 Triage completed. ss 09:17 Arm band placed on right wrist. ss 10:00 Patient has correct armband on for positive identification. Bed in low position. Call tw2 light in reach. Side rails up X2. Adult w/ patient. Client placed on continuous cardiac and pulse oximetry monitoring. NIBP monitoring applied. engine monitor on. 10:00 Inserted saline lock: 22 gauge in left antecubital area, using aseptic technique. tw2 10:02 Wound Culture Sent. ko1 10:02 Flu Sent. ko1 10:03 SARS RAPID Sent. ko1 10:17 Chest Single View XRAY In Process Unspecified. EDMS 12:03 Radiology exam delayed due to IV insertion attempt and/or patient not having mw3 appropriate IV at this time. 12:34 Inserted saline lock: 20 gauge in right upper arm, using aseptic technique. Blood ss collected. Patient maintains SpO2 saturation greater than 95% on room air. 12:56 CT Abd/Pelvis - IV Contrast Only In Process Unspecified. EDMS 13:35 Assisted provider with intubation via oral route. Intubated by Dani Hodge MD Placement ss verified by CO2 detector w/ + color change, auscultating bilateral breath sounds, Patient tolerated sedated. 13:42 Mcnair cath inserted, using sterile technique, 16 Fr., by me, balloon inflated, other ss Criticore Mcnair inserted, connected to monitor. 14:10 Assisted provider with central line placement. Set up central line tray. Triple lumen ph line placed in right femoral. Line placed by Vidal WARE Placement verified by CXR, blood return, Dressed with 4X4s, Tegaderm, Patient tolerated well. Before procedure, did Practitioner(s) obtain informed consent? Yes. Patient \T\ family education about procedure, CLABSI prevention and S/S of infection? No. Time-out/Briefing performed prior to start of procedure? Yes. Was handwashing/sanitizing done immediately prior to procedure? Yes. Was patient positioned to in a way to prevent air embolism? Yes. Was procedure site sterilized? Yes, with chlorhexidine. Was the site allowed to dry? Was local anesthetic and/or sedation utilized? Yes. During the procedure, did the Practitioner(s) maintain a sterile field? Yes. Were unused ports clamped during insertion? Yes. Was a 2nd qualified MD obtained after 3 unsuccessful insertion attempts? N/A. Was blood aspirated from each lumen? Yes. After the procedure, did the Practitioner(s) clean the site and apply a sterile dressing? Yes. 14:34 XRAY Chest (1 view) In Process Unspecified. EDMS 14:38 Renuka Strickland MD is Hospitalizing Provider. rn 18:50 Patient admitted, IV remains in place. ph Administered Medications: 10:16 Drug: NS 0.9% 1000 ml Route: IV; Rate: 1000 ml; Site: right forearm; ko1 10:17 Drug: Acetaminophen Suppository 650 mg Route: TX; ko1 18:58 Follow up: Response: No adverse reaction ph 13:32 Drug: Keppra (levETIRAcetam) 1000 mg Route: IV; Rate: calculated rate; Site: right tw2 antecubital; 14:00 Follow up: Response: No adverse reaction; IV Status: Completed infusion ph 13:33 Drug: Ativan (LORazepam) 2 mg Route: IVP; Site: right antecubital; tw2 18:59 Follow up: Response: No adverse reaction ph 13:34 Drug: Etomidate 20 mg {Note: Administered by GILLIAN TRACY.} Route: IVP; Site: right upper arm;ss 14:00 Follow up: Response: No adverse reaction; RASS: Moderate sedation (-3) ph 13:34 Drug: Succinylcholine 100 mg {Note: Administered by GILLIAN TRACY.} Route: IVP; Site: right ss upper arm; 14:00 Follow up: Response: No adverse reaction; RASS: Moderate sedation (-3) ph 13:45 Drug: NS 0.9% (30 ml/kg) 30 ml/kg Route: IV; Rate: bolus; Site: right antecubital; ph 15:00 Follow up: Response: No adverse reaction; IV Status: Completed infusion; IV Intake: ph 1000ml 13:50 Drug: Propofol 5 mcg/kg/min Route: IV; Rate: calculated rate; Site: right antecubital; ph 14:22 Follow up: Rate change 15 mcg/kg/min; IV SiteChange: right femoral; IV SiteChange ph Reason: Infiltration 15:00 Follow up: Rate change 20 mcg/kg/min ph 15:52 Follow up: Rate change 25 mcg/kg/min ph 18:54 Follow up: Response: No adverse reaction; RASS: Light sedation (-2); IV Status: ph Infusion continued upon admission 19:28 Follow up: Rate change 25 mcg/kg/min kd3 14:50 Drug: Cefepime 1 grams Route: IVPB; Rate: 200 ml/hr; Infused Over: 30 mins; Site: right ph femoral; 15:20 Follow up: Response: No adverse reaction; IV Status: Completed infusion ph 15:41 Drug: vancoMYCIN 1 grams Route: IVPB; Infused Over: 2 hrs; Site: right femoral; db 17:45 Follow up: Response: No adverse reaction; IV Status: Completed infusion ph Medication: 12:31 VIS not applicable for this client. ss Intake: 15:00 IV: 1000ml; Total: 1000ml. ph Outcome: 14:39 Decision to Hospitalize by Provider. rn 20:41 Admitted to ICU room 2. kd3 20:41 Condition: stable 20:41 Discharge instructions given to patient, Instructed on the need for admit, Demonstrated understanding of instructions. 20:42 Patient left the ED. kd3 Signatures: Dispatcher [employer] EDMS Dani Hodge MD MD rn Smirch, Shelby RN RN ss Jacqueline Wu RN RN ph Chitra Hull RN RN 2 Xochitl Yates 3 Viviana Diez RN RN 3 Diana Barone RN RN [email or web address] Chioma Her RN RN ko1 Izabela Escoto RN RN db Corrections: (The following items were deleted from the chart) 18:50 14:00 Respiratory: Airway is patent Respiratory effort is even, Respiratory pattern is ph regular, Ventilator assessment: ET Tube: ph 18:51 15:44 Reassessment: No changes from previously documented assessment. Patient and/or ph family updated on plan of care and expected duration. Pain level reassessed. Patient is alert, oriented x 3, equal unlabored respirations, skin warm/dry/pink. db 18:53 14:00 Respiratory: Airway is patent Respiratory effort is even, Respiratory pattern is ph regular, Ventilator assessment: ET Tube: 7.5 21cm. at gum line. ph
--- NOTE | 2022-03-28 14:40 | EDPHYS ---
Physician Documentation [facility] Name: Alexy Mock Age: 36 yrs Sex: Male : 1985 Arrival Date: 03/28/2022 Time: 09:16 Bed 3 Private MD: ED Physician Dani Hodge HPI: 03/28 09:18 This 36 yrs old Male presents to ER via EMS with complaints of Vomiting. rn 09:18 The patient presents to the emergency department with nausea, vomiting. Onset: The rn symptoms/episode began/occurred this morning. Possible causes: unknown. The symptoms are aggravated by nothing. The symptoms are alleviated by nothing. Associated signs and symptoms: Pertinent positives: fever, vomiting, Pertinent negatives: GI bleeding. Severity of symptoms: At their worst the symptoms were mild in the emergency department the symptoms have improved. It is unknown whether or not the patient has had similar symptoms in the past. It is unknown whether or not the patient has recently seen a physician. Per EMS, called for vomiting x 1, given phenergan 25mg IM x 1. + low grade fever. Non-verbal. No seizure. . Historical: - Allergies: 09:17 No Known Allergies; ss - PMHx: 09:17 pressure ulcer sacral region; MR; epilepsy; ENCEPHALOPATHY; DYSPHAGIA; Bipolar ss disorder; Anemia; adhd; abnormal liver function; - PSHx: 09:17 G tube; ss - Immunization history:: Adult Immunizations unknown. - Family history:: not pertinent. - Social history:: Smoking status: Patient denies any tobacco usage or history of. - History obtained from: EMS. ROS: 09:18 Unable to obtain ROS due to non-verbal, sleeping. rn Exam: 09:18 Constitutional: Thin, cachectic male, sleeping Head/Face: Normocephalic, atraumatic. rn Eyes: Sunken eyes. Periorbital areas with no swelling, redness, or edema. ENT: dry MM Cardiovascular: Tachycardic, regular. No pulse deficits. Respiratory: No increased work of breathing, no retractions or nasal flaring. Abdomen/GI: soft, non-tender, non-distended, + feeding tube upper abd Skin: Warm, dry MS/ Extremity: Pulses equal, no cyanosis. Neuro: Awake and alert, GCS 15 Vital Signs: 09:30 BP 125 / 92; Pulse 123; Resp 14; Temp 99.4(A); Pulse Ox 98% on R/A; ss 10:30 BP 139 / 103; Pulse 116; Pulse Ox 100% on R/A; ss 12:31 BP 121 / 96; Pulse 135; Pulse Ox 95% on R/A; ss 13:15 BP 151 / 108; Pulse 146; Resp 9; Pulse Ox 100% on 5 lpm NC; tw2 13:30 BP 153 / 109; Pulse 145; Resp 9; Pulse Ox 99% on 5 lpm NC; ss 14:10 BP 132 / 107; Pulse 121; Resp 16; Temp 98.6(C); Pulse Ox 100% on ETT vent; ph 14:16 Weight 50 kg; ph 15:30 BP 142 / 114; Pulse 115; Resp 15; Temp 98.5(C); Pulse Ox 100% on ETT vent; db 16:00 BP 140 / 110; Pulse 113; Resp 16; Temp 98.3(C); Pulse Ox 100% on 45% FiO2 ETT vent; ph 16:30 BP 143 / 109; Pulse 104; Resp 15; Pulse Ox 100% on 45% FiO2 ETT vent; ph 17:00 BP 141 / 114; Pulse 102; Resp 15; Temp 98.2; Pulse Ox 100% on 45% FiO2 ETT vent; ph 17:30 BP 145 / 104; Pulse 106; Resp 15; Temp 98.2(C); Pulse Ox 100% on 45% FiO2 ETT vent; ph 18:00 BP 137 / 112; Pulse 111; Resp 16; Temp 98.6; Pulse Ox 100% on 45% FiO2 ETT vent; ph 18:32 BP 155 / 114; Pulse 110; Resp 18; Temp 98.2(C); Pulse Ox 100% on 45% FiO2 ETT vent; ph 19:22 BP 137 / 112; Pulse 108; Resp 10; Temp 97.6(C); Pulse Ox 100% on 40% FiO2 ETT vent; kd3 19:46 Resp 15; ha1 Procedures: 13:41 Intubation: Ventilated with 100% NRB prior to procedure. O2 saturation prior to surg rn was 96 %. Intubated orally using # 4 Zulema blade with 7.5 mm ETT. was successful on first attempt. Ventilated with Ambu bag. Cricoid pressure applied during procedure. Tube secured with ETT duffy at right side of mouth measured 22 cm at teeth. Placement verified by CXR, CO2 detector with (+) color change, auscultating bilateral breath sounds, O2 saturation after procedure was 99 %. Patient tolerated well. 14:15 Central Line: the site was prepped with Betadine, in sterile fashion, a triple lumen cp catheter was inserted, in the right femoral vein, in 1 attempts. placement was verified, by blood return, the patient tolerated the procedure, well. MDM: 09:16 Patient medically screened. rn 12:04 ED course: Pt with epileptic seizure here, given ativan and keppra, seizure generalized rn and lasted approx 1 min. . 13:25 ED course: Pt with persistent bradypnea, decision made to intubate for airway rn protection, discussed this with mother and she is ok with it. . 13:41 ED course: Pt with severe sepsis, most likely source at this point sacral ulcer, but rn urine still pending. Pt just intubated for decline in mental status and impending respiratory failure. Abx ordered. Lactate elevated, 30ml/kg bolus ordered. Central line being placed. Will admit to ICU for further care. . 14:37 Differential diagnosis: Sepsis, severe sepsis, sacral ulcer, epilepsy. Data reviewed: rn vital signs, nurses notes, lab test result(s), radiologic studies, CT scan, plain films, and as a result, I will admit patient. Counseling: I had a detailed discussion with the patient and/or guardian regarding: the historical points, exam findings, and any diagnostic results supporting the discharge/admit diagnosis, lab results, radiology results, the need for further work-up and treatment in the hospital. Response to treatment: the patient's symptoms have mildly improved after treatment, and as a result, I will admit patient. Admission orders: after a detailed discussion of the patient's condition and case, the admit orders are written by me. 16:23 ED course: 30 ml/kg bolus completed, with improvement of lactate, sepsis reevaluation rn complete.. 03/28 09:17 Order name: Blood Culture Adult (2) rn 03/28 09:17 Order name: CBC with Diff; Complete Time: 13:05 rn 03/28 09:17 Order name: CMP; Complete Time: 13:05 rn 03/28 09:17 Order name: Lactate; Complete Time: 13:05 rn 03/28 09:17 Order name: Protime (+inr); Complete Time: 13:05 rn 03/28 09:17 Order name: Ptt, Activated; Complete Time: 13:05 rn 03/28 09:17 Order name: Urine Culture rn 03/28 09:17 Order name: Urine Microscopic Only; Complete Time: 14:12 rn 03/28 09:17 Order name: SARS RAPID; Complete Time: 10:58 rn 03/28 09:17 Order name: Flu; Complete Time: 13:05 rn 03/28 09:17 Order name: Wound Culture rn 03/28 09:59 Order name: Glucose, Ancillary Testing; Complete Time: 10:35 EDID 03/28 13:56 Order name: Urine Dipstick-Ancillary; Complete Time: 14:12 [facility] 03/28 16:19 Order name: Lactate Sepsis 2 HR Follow-up; Complete Time: 16:23 EDID 03/28 09:17 Order name: Chest Single View XRAY; Complete Time: 10:58 03/28 09:17 Order name: CT Abd/Pelvis - IV Contrast Only; Complete Time: 13:25 03/28 13:43 Order name: XRAY Chest (1 view); Complete Time: 15:21 03/28 18:18 Order name: CBC with Automated Diff [facility] 03/28 18:18 Order name: CBC with Automated Diff [facility] 03/28 18:18 Order name: Comprehensive Metabolic Panel [facility] 03/28 18:18 Order name: Comprehensive Metabolic Panel [facility] 03/28 18:18 Order name: Magnesium EDMS 03/28 18:18 Order name: Magnesium EDMS 03/28 18:18 Order name: NT PRO-BNP EDID 03/28 18:18 Order name: NT PRO-BNP EDID 03/28 18:18 Order name: Phosphorus EDID 03/28 18:18 Order name: Phosphorus [facility] 03/28 09:17 Order name: Accucheck; Complete Time: 09:27 rn 03/28 09:17 Order name: Cardiac monitoring; Complete Time: 09:22 rn 03/28 09:17 Order name: EKG - Nurse/Tech; Complete Time: 10:03 rn 03/28 09:17 Order name: IV Saline Lock - Large Bore; Complete Time: 10:03 rn 03/28 09:17 Order name: Labs collected and sent; Complete Time: 13:54 rn 03/28 09:17 Order name: O2 Per Protocol; Complete Time: 10: rn 03/28 09:17 Order name: O2 Sat Monitoring; Complete Time: 10:03 rn 03/28 09:17 Order name: Urine Dipstick-Ancillary (obtain specimen); Complete Time: 13:54 rn 03/28 18:18 Order name: Tube Feeding EDID 03/28 18:20 Order name: [facility] Cons [facility] 03/28 18:21 Order name: Dietitian Consult EDID Administered Medications: 10:16 Drug: NS 0.9% 1000 ml Route: IV; Rate: 1000 ml; Site: right forearm; ko1 10:17 Drug: Acetaminophen Suppository 650 mg Route: NM; ko1 18:58 Follow up: Response: No adverse reaction ph 13:32 Drug: Keppra (levETIRAcetam) 1000 mg Route: IV; Rate: calculated rate; Site: right tw2 antecubital; 14:00 Follow up: Response: No adverse reaction; IV Status: Completed infusion ph 13:33 Drug: Ativan (LORazepam) 2 mg Route: IVP; Site: right antecubital; tw2 18:59 Follow up: Response: No adverse reaction ph 13:34 Drug: Etomidate 20 mg {Note: Administered by ROSSANA RN.} Route: IVP; Site: right upper arm;ss 14:00 Follow up: Response: No adverse reaction; RASS: Moderate sedation (-3) ph 13:34 Drug: Succinylcholine 100 mg {Note: Administered by ROSSANA RN.} Route: IVP; Site: right ss upper arm; 14:00 Follow up: Response: No adverse reaction; RASS: Moderate sedation (-3) ph 13:45 Drug: NS 0.9% (30 ml/kg) 30 ml/kg Route: IV; Rate: bolus; Site: right antecubital; ph 15:00 Follow up: Response: No adverse reaction; IV Status: Completed infusion; IV Intake: ph 1000ml 13:50 Drug: Propofol 5 mcg/kg/min Route: IV; Rate: calculated rate; Site: right antecubital; ph 14:22 Follow up: Rate change 15 mcg/kg/min; IV SiteChange: right femoral; IV SiteChange ph Reason: Infiltration 15:00 Follow up: Rate change 20 mcg/kg/min ph 15:52 Follow up: Rate change 25 mcg/kg/min ph 18:54 Follow up: Response: No adverse reaction; RASS: Light sedation (-2); IV Status: ph Infusion continued upon admission 19:28 Follow up: Rate change 25 mcg/kg/min kd3 14:50 Drug: Cefepime 1 grams Route: IVPB; Rate: 200 ml/hr; Infused Over: 30 mins; Site: right ph femoral; 15:20 Follow up: Response: No adverse reaction; IV Status: Completed infusion ph 15:41 Drug: vancoMYCIN 1 grams Route: IVPB; Infused Over: 2 hrs; Site: right femoral; db 17:45 Follow up: Response: No adverse reaction; IV Status: Completed infusion ph Disposition Summary: 03/28/22 14:39 Hospitalization Ordered Hospitalization Status: Inpatient Admission rn Provider: Renuka Strickland rn Location: Intensive Care Unit rn Condition: Fair rn Problem: new rn Symptoms: have improved rn Bed/Room Type: Standard rn Room Assignment: 2-(03/28/22 18:02) eb Diagnosis - Severe sepsis without septic shock rn - Acute respiratory failure with hypoxia rn - Epileptic seizures related to external causes, not intractable, without status rn epilepticus - Cellulitis of buttock rn Forms: - Medication Reconciliation Form rn - SBAR form director e learning time excluding procedures: 14:37 Critical care time: Bedside Care: 35 minutes, Family Intervention: 5 minutes. Total rn time: 40 minutes Addendum: 03/31/2022 07:29 Co-signature as Attending Physician, Dain Hodge MD. r n Signatures: Dispatcher [employer] Dani Andrew MD MD rn Smirch, Shelby, RN RN ss Hall, Patricia, RN RN Vidal Pineda PA PA cp Wise, Tara RN RN bro2 Erika Martinez Kathy, RN RN koIzabela Will RN RN db Viviana Diez RN kd3 Corrections: (The following items were deleted from the chart) 03/28 18:02 14:39 rn eb
[2022-03-28] MEDS ORDERED: NA CHLORIDE 0.9% 100 ML ONE (15:01)
[2022-03-28] MEDS ORDERED: VANCOMYCIN 1 GM/VIAL ONE (15:01)
[2022-03-28] MEDS ORDERED: NA CHLORIDE 0.9% 250 ML ONE (15:01)
[2022-03-28] MEDS ORDERED: CEFEPIME 1 GM/VIAL ONE (15:01)
--- NOTE | 2022-03-28 15:20 | RAD REPORT ---
EXAM DESCRIPTION: RAD - Chest Single View - 03/28/2022 2:32 pm CLINICAL HISTORY: post intubation COMPARISON: Portable 03/28/2022 TECHNIQUE: AP portable chest image was obtained 03/28/2022 2:32 pm in supine position. FINDINGS: Endotracheal tube has been placed. Tip is at the top of the aortic arch 4 cm above the car wes. NG tube extends into the proximal stomach. No acute lung parenchymal process. Lung markings match comparison. No pulmonary edema or other emerge nt lung parenchymal process. Heart and vasculature are normal. No measurable pleural effusion and no pneumothorax. No acute bony abnormality seen. No acute aortic findings suspected. IMPRESSION: ET tube and NG tube in good position. No acute cardiopulmonary finding.
[2022-03-28] MEDS ORDERED: ACETAMINOPHEN 500 MG TAB PO PRN (18:12)
[2022-03-28] MEDS ORDERED: ONDANSETRON 4 MG/2 ML VIAL IV PRN (18:12)
[2022-03-28] MEDS ORDERED: levETIRAcetam 500 MG in NA CHLORIDE 0.9% 100 ML IV SCH ×3 (18:30→21:00)
[2022-03-28] MEDS: VANCOMYCIN 1 GM in NA CHLORIDE 0.9% 250 ML IVPB SCH ×2 (19:00→21:00)
[2022-03-28] MEDS ORDERED: propofoL 1,000 MG/100 ML VIAL IV SCH (21:00)
[2022-03-28] MEDS ORDERED: NA CHLORIDE 0.9% 250 ML IV PRN (21:45)
[2022-03-28] MEDS ORDERED: FENTANYL CITR 100 MCG/2 ML IV PRN (21:45)
[2022-03-28] MEDS ORDERED: LORazepam 2 MG/ML VIAL IV PRN (21:45)
[2022-03-28] MEDS ORDERED: MIDAZOLAM HCL 2 MG/2 ML INJ IV PRN (21:45)
[2022-03-28] MEDS: NA CHLORIDE 0.9% 1,000 ML IV SCH (22:23)
[2022-03-28 22:43] VITALS: BMI 16.1
[2022-03-28] MEDS: levETIRAcetam 500 MG in NA CHLORIDE 0.9% 100 ML IV SCH (22:55)
[2022-03-29] MEDS: KCL 20 MEQ/100 mL IVPB 20 MEQ/100 ML BAG IV SCH ×4 (00:11→08:32)
[2022-03-29] MEDS: NA CHLORIDE 0.9% 1,000 ML IV SCH ×2 (05:00→10:25)
[2022-03-29 05:18] LABS: Absolute Lymphocytes (CBC) 0.6 K/uL (0.7-4.9); Hematocrit 28.4 % (39.6-49.0); Lymphocytes % 11.2 % (15.3-44.8); MCV 86.4 fL (80-100); MPV 6.5 fL (7.6-11.3); RBC Red Blood Cell Count 3.29 M/uL (4.33-5.43)
[2022-03-29 05:56] LABS: Arterial Blood Carboxyhemoglob 1.2 % (0-1.5); Blood Gas Oxyhemoglobin 97.3 % (94-97); Blood O2 Saturation 99.8 % (92-98.5)
[2022-03-29 05:57] LABS: Albumin 2.5 g/dL (3.4-5.0); Bilirubin Total 0.6 mg/dL (0.2-1.0); Magnesium 1.9 mg/dL (1.8-2.4); Phosphorus 2.3 mg/dL (2.5-4.9); Protein, Total 5.8 g/dL (6.4-8.2)
[2022-03-29 05:58] LABS: Potassium 2.9 mmol/L (3.5-5.1)
[2022-03-29] MEDS ORDERED: VANCOMYCIN 1 GM in NA CHLORIDE 0.9% 250 ML IVPB SCH (06:00)
--- NOTE | 2022-03-29 06:51 | P.HP ---
Certification for Inpatient Patient admitted to: Inpatient With expected LOS: >2 Midnights Patient will require the following post-hospital care: None Practitioner: I am a practitioner with admitting privileges, knowledge of patient current condition, hospital course, and medical plan of care. Services: Services provided to patient in accordance with Admission requirements found in Title 42 Section 412.3 of the Code of Federal Regulations Patient History Date of Service: 03/28/22 Reason for admission: Septic shock History of Present Illness: patient is a 36-year-old gentleman came to the hospital with sepsis. Patient lives in [facility]. Is intellectually disabled. He has a feeding to and is dependent on his day-to-day activities. Patient presented with respiratory distress and multiple seizures. He was not really protecting his airway well and he was intubated. Patient has a stage IV sacral decubitus ulcer. It appears to be to the bone. It is about a 8 x 10 cm area and 1 inch deep. Patient is very frail. Has a PEG tube in place as well. Currently he is on the ventilator. He will be admitted to the hospital for further evaluation. Allergies No Known Allergies Allergy (Verified 03/29/22 02:29) Home Medications: Docusate Sodium 10 ml PO DAILY 03/09/22 Polyethylene Glycol 3350 [Miralax] 1 packet PO DAILY 03/09/22 levETIRAcetam [Levetiracetam] 7.5 ml PO Q12HR 03/09/22 Ferrous Sulfate [Ferrous Sulfate Elixir*] 5 ml PO DAILY 03/10/22 Lansoprazole [Prevacid] 1 cap PO [id number] 03/10/22 Sennosides [Senna] 1 tab PO DAILY 03/10/22 Sucralfate [Carafate*] 1 tab PO QID 03/10/22 Tamsulosin [Flomax*] 1 cap PO DAILY AFTER SUPPER 03/10/22 Acetaminophen 2 tab PO Q6HP PRN 03/29/22 Acetaminophen with Codeine [Acetaminop-Codeine 120-12 mg/5] 12.5 ml PO Q6H 03/29/22 Amino Acids/Protein Hydrolys [Pro-Stat Awc Liquid] 30 ml PO BID 03/29/22 Ascorbic Acid 1 tab PO BID 03/29/22 Bisacodyl [Gentle Laxative] 10 mg RC DAILYPRN PRN 03/29/22 Ipratropium/Albuterol Sulfate [Iprat-Albut 0.5-3(2.5) mg/3 ml] 3 ml IH Q4HP PRN 03/29/22 LORazepam [Ativan*] 0.5 mg PO BID 03/29/22 LORazepam [Ativan] 0.5 ml IM Q12HP PRN 03/29/22 Lactulose 30 ml PO TIDP PRN 03/29/22 - Past Medical/Surgical History -: mental retardation -: epilepsy -: encephalopathy -: bipolar disorder -: anemia -: ADHD -: PEG - Family History Father Family History: Reviewed- Non-Contributory - Social History Smoking Status: Unknown if ever smoked Alcohol use: No CD- Drugs: No Place of Residence: Prison Review of Systems is unable to be obtained Physical Examination - Vital Signs Temperature: 98.9 F Blood Pressure: 141/95 Pulse: 86 Respirations: 15 Pulse Ox (%): 100 - Physical Exam General: Unresponsive, Other ( Intubated sedated) HEENT: Atraumatic Neck: Supple Respiratory: Diminished, Rhonchi/gurgles Cardiovascular: Regular rate/rhythm, Normal S1 S2 Gastrointestinal: Normal bowel sounds, Soft and benign, Non-distended, No guarding, Other ( peg tube in place) Musculoskeletal: No clubbing, No swelling Integumentary: No rashes Neurological: Normal gait, Normal speech, Normal strength at 5/5 x4 extr, Normal tone, Sensation intact, Cranial nerves 3-12 intact - Studies Laboratory Data (last 24 hrs) 03/28/22 12:23: PT 12.8 H, INR 1.16, APTT 39.7 H 03/28/22 12:23: Sodium 142, Potassium 3.1 L, BUN 37 H, Creatinine 0.66, Glucose 119 H, Total Bilirubin 0.5, AST 22, ALT 43, Alkaline Phosphatase 141 H 03/28/22 12:23: WBC 7.20, Hgb 13.3 L, Hct 39.7, Plt Count 495 H Microbiology Data (last 24 hrs): 03/28/22 09:53 Wound - Sacral Gram Stain - Final 03/28/22 09:53 Nasopharnyx Influenza Type A Antigen Screen - Final 03/28/22 09:53 Nasopharnyx Influenza Type B Antigen Screen - Final Assessment & Plan - Problems (Diagnosis) (1) Respiratory distress Current Visit: Yes Status: Acute (2) Seizure disorder Current Visit: Yes Status: Acute (3) Unspecified intellectual disabilities Current Visit: Yes Status: Acute (4) Hypokalemia Current Visit: Yes Status: Acute (5) PEG tube malfunction Current Visit: Yes Status: Acute (6) Fecal retention Current Visit: Yes Status: Acute - Plan plan: 1. continue with vent management 2. pulmonary consultation for assistance with vent management 3. EEG and will start Keppra along with neurology consultation 4. continue with wound care and continue with antibiotic coverage; infectious Disease and Wound Care consultation 5. repeat KUB in a.m. 6. Repeat chest x-ray in a.m. 7. patient may need to be disimpacted. Will monitor his status over the next 24 hours and will see if he is able to have a BM. 8. will hold tube feeds for now. Resume tube feeds if PEG tube is in the proper position. 9. GI and DVT prophylaxis Discharge Plan: Prison Plan to discharge in: Greater than 2 days - Advance Directives Does patient have a Living Will: No Does patient have a Durable POA for Healthcare: No - Code Status/Comfort Care Code Status Assessed: Yes Code Status: Full Code Critical Care: No Time Spent Managing PTS Care (In Minutes): 45
--- NOTE | 2022-03-29 07:20 | RAD REPORT ---
EXAM DESCRIPTION: Jag Single View03/29/2022 5:42 am CLINICAL HISTORY: Shortness of breath COMPARISON: March 28, 2022 FINDINGS: The lungs appear clear of acute infiltrate. The heart is normal size An endotracheal tube has its tip 2 centimeters above the level of aortic arch. It should be advanced about 1.5 centimeters Nasogastric tube within the gastric body
--- NOTE | 2022-03-29 07:21 | RAD REPORT ---
EXAM DESCRIPTION: RAD - Abdomen 1 View (KUB) - 03/29/2022 5:42 am CLINICAL HISTORY: Device placement nasogastric tube placement FINDINGS: The tip of a nasogastric tube lies within the gastric body Bowel gas pattern is unremarkable
[2022-03-29] MEDS: ENOXAPARIN 40 MG/0.4 ML SQ SCH (08:32)
[2022-03-29] MEDS: levETIRAcetam 500 MG in NA CHLORIDE 0.9% 100 ML IV SCH ×2 (08:33→21:15)
[2022-03-29] MEDS ORDERED: POTASSIUM PHOS IN 0.9 % NACL 15 MMOL/250 ML BAG IV ONE (09:00)
[2022-03-29] MEDS ORDERED: POTASSIUM PHOS 22 MEQ in NA CHLORIDE 0.9% 250 ML IV ONE (09:00)
[2022-03-29] MEDS ORDERED: FAMOTIDINE 20 MG/2 ML VIAL IV SCH (09:00)
[2022-03-29] MEDS ORDERED: SODIUM HYPOCHLORITE 0.25% 473 ML TOP SCH (09:00)
--- NOTE | 2022-03-29 12:00 | P.PN ---
Subjective Date of Service: 03/29/22 Chief Complaint: Seizures Subjective: No new changes No acute events overnight. History is limited as he is intubated and sedated. Review of Systems is unable to be obtained Physical Examination - Vital Signs Temperature: 99.1 F Blood Pressure: 115/69 Pulse: 81 Respirations: 13 Pulse Ox (%): 100 - Physical Exam General: In no apparent distress, Other (intubated, sedated) HEENT: Atraumatic, Sclerae nonicteric Respiratory: Diminished Cardiovascular: No edema, Regular rate/rhythm, Normal S1 S2, No gallops, No rubs, No murmurs Gastrointestinal: Hypoactive, Soft and benign, Non-distended, No tenderness, No rebound, No guarding, Other (PEG-tube in place) Musculoskeletal: No clubbing Integumentary: No rashes, Pressure ulcer (about 8 x 10 cm, 1 inch deep. Stage IV sacral pressure ulcer.) Neurological: Other (sedated) - Studies Laboratory Data (last 24 hrs) 03/28/22 12:23: PT 12.8 H, INR 1.16, APTT 39.7 H 03/28/22 12:23: Sodium 142, Potassium 3.1 L, BUN 37 H, Creatinine 0.66, Glucose 119 H, Total Bilirubin 0.5, AST 22, ALT 43, Alkaline Phosphatase 141 H 03/28/22 12:23: WBC 7.20, Hgb 13.3 L, Hct 39.7, Plt Count 495 H Microbiology Data (last 24 hrs): 03/28/22 09:53 Wound - Sacral Gram Stain - Final 03/28/22 09:53 Nasopharnyx Influenza Type A Antigen Screen - Final 03/28/22 09:53 Nasopharnyx Influenza Type B Antigen Screen - Final Assessment And Plan - Plan # Acute Epileptic Seizure in the setting of Known Epilepsy - Per ED note, he was found to have acute seizure in the Emergency Department, requiring endotracheal intubation - Neurology consulted and spoke with Dr. Rod - recommendations appreciated - MRI brain pending - EEG pending - was being performed this morning on rounds - Currently sedated - q4hr neuro checks once off sedation - Continue levetiracetam and PRN lorazepam # Concern for Severe Sepsis with Possible Infected Sacral Wound - General Surgery consulted for possible debridement - recommendations appreciated - Spoke with Dr. Wiggins, does not believe he requires surgical intervention at this time - Sepsis order set was initiated - Lactate trend 3.5 -> 2.0 - although may be secondary to seizures - Blood cultures drawn before antibiotics were given - Broad spectrum antibiotics started: Vancomycin - In regards to fluids: - 30 mL/kg of IV fluids was not administered given SBP > 90, MAP > 65, lactic acid < 4 # Possible Gastric Outlet Obstruction due to Dislodged Gastrostomy Tube - Consulted General Surgery and spoke with Dr. Wiggins - recommendations appreciated - He repositioned tube - Repeat imaging pending - If positioned appropriately, discontinue OG tube # Intellectual Disability # Bipolar Disorder # ADHD - Resume home medications once able Anderson Stevens M.D. Discharge Plan: Home Plan to discharge in: Greater than 2 days
[2022-03-29] MEDS: VANCOMYCIN 1 GM in NA CHLORIDE 0.9% 250 ML IVPB SCH ×2 (12:21→20:42)
--- NOTE | 2022-03-29 12:22 | RAD REPORT ---
EXAM DESCRIPTION: RAD - ENTEROSTOMY TUBE CHECK W/CONTR - 03/29/2022 10:27 am CLINICAL HISTORY: Gastrostomy tube placement FINDINGS: Contrast was administered into the percutaneous gastrostomy tube. The stomach is opacified . No extravasation contrast Zero fluoroscopy performed. Zero fluoroscopic spot images obtained
--- NOTE | 2022-03-29 12:30 | P.CNS ---
Date of Consult: 03/29/22 Reason for Consult: Respiratory failure seizures Chief Complaint: Seizures History of Present Illness: Patient is 36 years of age mated with seizures he was intubated possible sepsis he was admitted at [facility] history of multiple seizures very debilitated cachectic Allergies No Known Allergies Allergy (Verified 03/29/22 02:29) Home Medications: Docusate Sodium 10 ml PO DAILY 03/09/22 Polyethylene Glycol 3350 [Miralax] 1 packet PO DAILY 03/09/22 levETIRAcetam [Levetiracetam] 7.5 ml PO Q12HR 03/09/22 Ferrous Sulfate [Ferrous Sulfate Elixir*] 5 ml PO DAILY 03/10/22 Lansoprazole [Prevacid] 1 cap PO [id number] 03/10/22 Sennosides [Senna] 1 tab PO DAILY 03/10/22 Sucralfate [Carafate*] 1 tab PO QID 03/10/22 Tamsulosin [Flomax*] 1 cap PO DAILY AFTER SUPPER 03/10/22 Acetaminophen 2 tab PO Q6HP PRN 03/29/22 Acetaminophen with Codeine [Acetaminop-Codeine 120-12 mg/5] 12.5 ml PO Q6H 03/29/22 Amino Acids/Protein Hydrolys [Pro-Stat Awc Liquid] 30 ml PO BID 03/29/22 Ascorbic Acid 1 tab PO BID 03/29/22 Bisacodyl [Gentle Laxative] 10 mg RC DAILYPRN PRN 03/29/22 Ipratropium/Albuterol Sulfate [Iprat-Albut 0.5-3(2.5) mg/3 ml] 3 ml IH Q4HP PRN 03/29/22 LORazepam [Ativan*] 0.5 mg PO BID 03/29/22 LORazepam [Ativan] 0.5 ml IM Q12HP PRN 03/29/22 Lactulose 30 ml PO TIDP PRN 03/29/22 - Past Medical/Surgical History -: mental retardation -: epilepsy -: encephalopathy -: bipolar disorder -: anemia -: ADHD -: PEG - Family History Father Family History: Reviewed- Non-Contributory - Social History Alcohol use: No CD- Drugs: No Place of Residence: Skilled Nursing Review of Systems is unable to be obtained Physical Examination Temp Pulse Resp BP Pulse Ox 99.1 F 81 13 115/69 100 03/29/22 12:26 03/29/22 12:26 03/29/22 12:26 03/29/22 12:26 03/29/22 12:26 General: Unresponsive Cardiovascular: No edema, Normal S1 S2 Musculoskeletal: Other (Is very cachectic significant muscle wasting) Laboratory Data (last 24 hrs) 03/28/22 12:23: PT 12.8 H, INR 1.16, APTT 39.7 H 03/28/22 12:23: Sodium 142, Potassium 3.1 L, BUN 37 H, Creatinine 0.66, Glucose 119 H, Total Bilirubin 0.5, AST 22, ALT 43, Alkaline Phosphatase 141 H 03/28/22 12:23: WBC 7.20, Hgb 13.3 L, Hct 39.7, Plt Count 495 H - Problems (1) Respiratory failure Current Visit: Yes Status: Acute Plan: Admitted with seizures chest x-ray is clear no evidence of sepsis plan to wean and extubate from the ventilator vital signs stable patient is also hypokalemic he does have a respiratory alkalosis Qualifiers: Chronicity: acute
[2022-03-29] MEDS: COLLAGENASE 30 GM OINTMENT TOP SCH (14:35)
[2022-03-29] MEDS: SODIUM HYPOCHLORITE 0.25% 473 ML TOP SCH (14:35)
[2022-03-29] MEDS ORDERED: VITAL AF 1,000 ML BOT RTH SCH (16:00)
[2022-03-29 19:35] LABS: Potassium 3.3 mmol/L (3.5-5.1)
[2022-03-29 22:48] LABS: Phosphorus 3.5 mg/dL (2.5-4.9)
[2022-03-30] MEDS: KCL 20 MEQ/100 mL IVPB 20 MEQ/100 ML BAG IV SCH ×2 (00:54→02:53)
[2022-03-30] MEDS: VANCOMYCIN 1 GM in NA CHLORIDE 0.9% 250 ML IVPB SCH ×2 (03:53→12:00)
[2022-03-30 04:52] LABS: Absolute Lymphocytes (CBC) 0.8 K/uL (0.7-4.9); Hematocrit 23.9 % (39.6-49.0); Lymphocytes % 22.1 % (15.3-44.8); MCV 87.1 fL (80-100); MPV 6.6 fL (7.6-11.3); RBC Red Blood Cell Count 2.75 M/uL (4.33-5.43)
[2022-03-30 04:59] LABS: Potassium 3.5 mmol/L (3.5-5.1)
[2022-03-30] MEDS: COLLAGENASE 30 GM OINTMENT TOP SCH (07:48)
[2022-03-30] MEDS: levETIRAcetam 500 MG in NA CHLORIDE 0.9% 100 ML IV SCH (07:49)
[2022-03-30] MEDS: SODIUM HYPOCHLORITE 0.25% 473 ML TOP SCH (07:49)
[2022-03-30] MEDS: ENOXAPARIN 40 MG/0.4 ML SQ SCH (07:49)
--- NOTE | 2022-03-30 08:55 | CON ---
Reason For Consultation: Consultation called because of prolonged seizures. History Of Present Illness: Mr. Mock is a 36-year-old patient with significant cognitive deficits, epilepsy, and inability to maintain nutrition with a PEG tube, who comes to [facility] with reported [id number] seizures and possible sepsis of unclear etiology, may be aspiration pneumonia and had to be intubated to protect his airway. He was admitted on the 28 of March, that is yes terday. He is intubated after the [id number] seizures at [facility] and is now in ICU on the [facility] lator. The patient did have propofol earlier, but that has been stopped. He is on Keppra 500 mg int ravenously every 12 hours. There was an EEG done earlier today that showed a diffusely slow backgrou nd, but biphasics noted in the frontal and central regions and very poorly expressed and slow posteri or dominant rhythm. The patient had no electrographic seizures at that time and there was no reporte d clinical seizures. He has not had a head CT scan yet; however, he was in the hospital on the and a head CT scan showed no acute ischemic or hemorrhagic findings. His complete blood count with d ifferential showed a slightly low hemoglobin 9.7 with normal white blood cell count of 5.6. His pota ssium after hydration noted 2.9. Liver function studies were unremarkable. His lactic acid yesterda y was 3.5, perhaps related to veii-dg-mepa seizures and his lactic acid 3 hours later after hydration was normal at 2.0. His urinalysis showed moderate oxalate crystals, greater than 50 red blood cells , 4+ mucus, 1+ total protein. COVID-19 testing was negative. His chest x-ray showed clear lungs of acute infiltrate. Endotracheal tube was in place and his KUB showed an unremarkable bowel gas patter n and the tip of nasogastric tube was within the gastric body. Past Medical History: As noted. Bipolar disorder, chronic anemia, attention deficit hyperactivity d isorder. Allergies: NO KNOWN DRUG ALLERGIES. Medications: At home docusate sodium 30 mL per tube daily, MiraLAX 1 packet daily, Keppra 750 mL per PEG tube daily, ferrous sulfate 5 mL daily, lansoprazole daily, senna 1 capsule daily, Flomax 0.4 mg daily, ascorbic acid daily in addition to lorazepam, albuterol along with acetaminophen. Past Surgical History: PEG tube placement. Family History: Noncontributory. Social History: The patient resides in a long-term. No alcohol or tobacco use recently. Review of Systems: He is intubated, unable to give a review of systems. Physical Examination: Vital Signs: Blood pressure 124/85, pulse 88, respiratory rate 14, temperature 99.2, oxygen saturati on 100%, mechanical ventilated, FiO2 35, weight 97 pounds, height 5 feet 5 inches. General: Mr. Mock is resting, intubated. He did not have any spontaneous movement of arms and leg s. No spontaneous eye opening. He has good air movement and no cyanosis or clubbing or edema noted. Neurologic: He does not respond to verbal stimulus. Did respond by localized withdrawing after stim ulation of the plantar surface of both feet, more notable on the left than the right. He did not hav e focal withdrawing of the upper extremities to stimulation that is unable to assess fully strength, coordination, or his gait. His reflexes are symmetric. Assessment: Mr. Mock is a 36-year-old patient with significantly decreased BMI of 16.2, longstandi ng significant cognitive deficits, but possibility of seizures and admission with status epilepticus and now intubated. Plan: 1.Continue Keppra as indicated. 2.Continue with nutritional status. 3.The patient will be followed once he is able to be off the ventilator. At this point, multiple we aning attempts were tried, but he was unable to maintain respirations on his own. He will be followed while in the hospital. CINDA/MARSHA Voice ID: [id number] Report ID: [id number]
--- NOTE | 2022-03-30 10:05 | EEG ---
CHART: [id number] TEST ID#: [id number] DATE OF STUDY: 03/29/2022 THE EEG WAS RECORDED PORTABLE IN THE ICU ON A 14 CHANNEL MACHINE. ELECTRODES WERE APPLIED IN THE USUAL MANNER USING THE INTERNATIONAL 10-20 SYSTEM. THE WAKING BACKGROUND RHYTHM IN THIS RECORD CONSISTS OF POORLY DEVELOPED AND POORLY ORGANIZED WAVES OF 6-7 HZ., MAXIMAL IN THE POSTERIOR HEAD REGIONS WHICH ATTENUATE NORMALLY WITH EYE OPENING. MODERATE VOLTAGE 2-4 HZ DIAPHASIC SHARP WAVES ARE EXPRESSED IN THE FRONTAL AND CENTRAL REGIONS. LOW VOLTAGE 15-18 HZ ACTIVITY IS EXPRESSED IN THE FRONTAL REGIONS. THERE ARE NO FOCAL OR LATERALIZING FEATURES. NO EPILEPTIFORM ACTIVITY APPEARS. SLEEP DID NOT OCCUR. HYPERVENTILATION WAS NOT PERFORMED. PHOTIC STIMULATION WAS NOT PERFORMED. IMPRESSION: THIS IS A MARKEDLY ABNORMAL ROUTINE EEG DUE TO FRONTAL AND CENTRAL DIAPHASIC SHARP WAVES AND A DIFFUESLY SLOW BACKGROUND. THESE FINDINGS ARE CONSISTENT WITH A DIFFUSE BUT NON-SPECIFIC DISTUBANCE IN CEREBRAL ACTIVITY. NO ELECTROGRAPHIC SEIZURES WERE RECORDED.
[2022-03-30] MEDS ORDERED: BISACODYL 10 MG RECTAL SUPP RC PRN (12:19)
--- NOTE | 2022-03-30 12:22 | P.PN ---
Subjective Date of Service: 03/30/22 Chief Complaint: Seizures patient on a ventilator Patient's condition is stableNo change. Unable to wean patient off the ventilator patient has apneic spells Review of Systems is unable to be obtained Physical Examination - Vital Signs Temperature: 98.8 F Blood Pressure: 136/82 Pulse: 76 Respirations: 12 Pulse Ox (%): 98 - Physical Exam General: Alert, Mild distress Respiratory: Clear to auscultation bilaterally Cardiovascular: No edema, Regular rate/rhythm - Studies Microbiology Data (last 24 hrs): 03/28/22 09:53 Wound - Sacral Gram Stain - Final 03/28/22 09:53 Wound - Sacral Culture & Sensitivity - Final Assessment And Plan - Current Problems (Diagnosis) (1) Respiratory failure Current Visit: Yes Status: Acute Plan: Respiratory failure chest x-ray is clear no evidence of sepsis no further seizures/unable to do a weaning trial due to apneic episodes plan to extubate the patient hemodynamically stable Qualifiers: Chronicity: acute (2) Seizure disorder Current Visit: Yes Status: Acute - Plan DC IV keppra, Change meds vis PEG. DC Antibiotics cultures neg
[2022-03-30 12:31] LABS: Potassium 3.2 mmol/L (3.5-5.1)
[2022-03-30] MEDS ORDERED: SUCCINYLCHOLINE 20 MG/ML (10 ML) IV ONE (13:10)
[2022-03-30] MEDS ORDERED: POTASSIUM CL SA 10 MEQ TAB PO ONE (14:00)
[2022-03-30] MEDS: SUCRALFATE 1 GM TABLET PO SCH ×3 (14:10→21:18)
--- NOTE | 2022-03-30 17:30 | EKG ---
Test Date: 2022-03-28 Test Time: 09:30:55 [employer]: [place] MEASUREMENT RESULTS: Intervals: Rate: 120 ID: [id number] QRSD: 90 QT: 344 QTc: 486 [place]: P: 73 ID: [id number] QRS: -85 T: 66 INTERPRETIVE STATEMENTS: Sinus tachycardia Right atrial enlargement Left axis deviation Pulmonary disease pattern Junctional ST depression, probably normal Abnormal ECG Compared to ECG 03/09/2022 13:48:31 Atrial abnormality now present Left-axis deviation now present ST (T wave) deviation now present Sinus rhythm no longer present Incomplete right bundle-branch block no longer present Electronically Signed On 03-30-22 17:27:26 CDT by Eduardo Mcmullen
[2022-03-30] MEDS: TAMSULOSIN 0.4 MG SR CAP PO SCH (18:10)
--- NOTE | 2022-03-30 18:28 | P.PN ---
Subjective Date of Service: 03/30/22 Chief Complaint: Seizures patient on a ventilator No acute events overnight. History is limited as he is intubated and sedated. Spontaneous breathing trials attempted this morning, but he continues to experience apneic spells. Review of Systems is unable to be obtained Physical Examination - Vital Signs Temperature: 99.5 F Blood Pressure: 132/81 Pulse: 62 Respirations: 17 Pulse Ox (%): 100 - Studies Microbiology Data (last 24 hrs): 03/28/22 09:53 Wound - Sacral Gram Stain - Final 03/28/22 09:53 Wound - Sacral Culture & Sensitivity - Final Assessment And Plan - Plan - Physical Exam General: In no apparent distress, Other (intubated, sedated) HEENT: Atraumatic, Sclerae nonicteric Respiratory: Diminished Cardiovascular: No edema, Regular rate/rhythm, Normal S1 S2, No gallops, No rubs, No murmurs Gastrointestinal: Hypoactive, Soft and benign, Non-distended, No tenderness, No rebound, No guarding, Other (PEG-tube in place) Musculoskeletal: No clubbing Integumentary: No rashes, Pressure ulcer (about 8 x 10 cm, 1 inch deep. Stage IV sacral pressure ulcer.) Neurological: Other (sedated) # Acute Epileptic Seizure in the setting of Known Epilepsy - Per ED note, he was found to have acute seizure in the Emergency Department, requiring endotracheal intubation - Neurology consulted and spoke with Dr. Rod - recommendations appreciated - MRI brain pending - EEG = markedly abnormal, but no epileptiform activity - Currently sedated - q4hr neuro checks once off sedation - Continue levetiracetam and PRN lorazepam # Concern for Severe Sepsis with Possible Infected Sacral Wound - General Surgery consulted for possible debridement - recommendations appreciated - Spoke with Dr. Wiggins, does not believe he requires surgical intervention at this time - Sepsis order set was initiated - Lactate trend 3.5 -> 2.0 - although may be secondary to seizures - Blood cultures drawn before antibiotics were given - Broad spectrum antibiotics started: Vancomycin - In regards to fluids: - 30 mL/kg of IV fluids was not administered given SBP > 90, MAP > 65, lactic acid < 4 # Possible Gastric Outlet Obstruction due to Dislodged Gastrostomy Tube - Consulted General Surgery and spoke with Dr. Wiggins - recommendations appreciated - He repositioned tube # Intellectual Disability # Bipolar Disorder # ADHD - Resume home medications once able Attempted to contact his mother today for collateral history, but was unsuccessful. I would be happy to speak with her if she calls back. Anderson Stevens M.D.
[2022-03-30] MEDS: AMINO ACIDS PO SCH (21:00)
[2022-03-30] MEDS: PROTEIN HYDROLYS PO SCH (21:00)
[2022-03-30] MEDS ORDERED: POTASSIUM 25 MEQ EFFERV TAB PO ONE (21:10)
[2022-03-30] MEDS: LORAZEPAM 0.5 MG TABLET PO SCH (21:18)
[2022-03-30] MEDS: ASCORBIC ACID 500 MG TABLET PO SCH (21:18)
[2022-03-30] MEDS: levETIRAcetam 500 MG/5 ML OSYR PO SCH (21:19)
[2022-03-31 05:04] LABS: Absolute Lymphocytes (CBC) 0.8 K/uL (0.7-4.9); Hematocrit 28.2 % (39.6-49.0); Lymphocytes % 18.9 % (15.3-44.8); MCV 86.9 fL (80-100); MPV 7.2 fL (7.6-11.3); Magnesium 1.8 mg/dL (1.8-2.4); Phosphorus 2.7 mg/dL (2.5-4.9); Potassium 3.5 mmol/L (3.5-5.1); RBC Red Blood Cell Count 3.25 M/uL (4.33-5.43)
[2022-03-31] MEDS ORDERED: HOME MED 1 EA UNK (Lansoprazole [Prevacid] 30 MG Capsule.Dr) PO SCH (06:00)
[2022-03-31] MEDS ORDERED: PANTOPRAZOLE 40MG TABLET PO SCH (06:00)
[2022-03-31] MEDS ORDERED: POLYETHYL GLY 3350 17 GM/DOSE PO SCH (09:00)
[2022-03-31] MEDS ORDERED: MAGNESIUM SULFATE 1 gm IVPB 1 GM/100 ML BAG IV ONE (09:00)
[2022-03-31] MEDS: SENOSIDES 8.6 MG TAB PO SCH (09:00)
[2022-03-31] MEDS: PROTEIN HYDROLYS PO SCH ×2 (09:00→19:45)
[2022-03-31] MEDS: SODIUM HYPOCHLORITE 0.25% 473 ML TOP SCH (09:00)
[2022-03-31] MEDS: COLLAGENASE 30 GM OINTMENT TOP SCH (09:00)
[2022-03-31] MEDS ORDERED: POTASSIUM 25 MEQ EFFERV TAB PO ONE (09:00)
[2022-03-31] MEDS: AMINO ACIDS PO SCH ×2 (09:00→19:45)
[2022-03-31] MEDS: ENOXAPARIN 40 MG/0.4 ML SQ SCH (10:22)
[2022-03-31] MEDS: ASCORBIC ACID 500 MG TABLET PO SCH ×2 (10:22→21:44)
[2022-03-31] MEDS: LORAZEPAM 0.5 MG TABLET PO SCH ×2 (10:22→21:44)
[2022-03-31] MEDS: SUCRALFATE 1 GM TABLET PO SCH ×4 (10:24→21:44)
[2022-03-31] MEDS: DOCUSATE NA 50 MG/5 ML UCUP PO SCH (10:25)
[2022-03-31] MEDS: levETIRAcetam 500 MG/5 ML OSYR PO SCH ×2 (10:25→21:44)
[2022-03-31] MEDS: POLYETHYL GLY 3350 17 GM/DOSE PO SCH (10:32)
--- NOTE | 2022-03-31 11:41 | P.PN ---
Subjective Date of Service: 03/31/22 Chief Complaint: Seizures patient on a ventilator No acute events overnight. He was extubated yesterday evening. His mother is at bedside, who reports that although he looks better, she is concerned that he is still weak from this episode. Review of Systems is unable to be obtained Physical Examination - Vital Signs Temperature: 97.4 F Blood Pressure: 129/71 Pulse: 58 Respirations: 16 Pulse Ox (%): 93 - Studies Microbiology Data (last 24 hrs): 03/28/22 09:53 Wound - Sacral Gram Stain - Final 03/28/22 09:53 Wound - Sacral Culture & Sensitivity - Final Assessment And Plan - Plan - Physical Exam General: In no apparent distress HEENT: Atraumatic, Sclerae nonicteric Respiratory: Diminished Cardiovascular: No edema, Regular rate/rhythm, Normal S1 S2, No gallops, No rubs, No murmurs Gastrointestinal: Hypoactive, Soft and benign, Non-distended, No tenderness, No rebound, No guarding, Other (PEG-tube in place) Musculoskeletal: No clubbing Integumentary: No rashes, Pressure ulcer (about 8 x 10 cm, 1 inch deep. Stage IV sacral pressure ulcer.) Neurological: Difficult to assess given intellectual disability # Acute Epileptic Seizure in the setting of Known Epilepsy - Per ED note, he was found to have acute seizure in the Emergency Department, requiring endotracheal intubation - Neurology consulted and spoke with Dr. 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 Wiggins, does not believe he requires surgical intervention at this time - Sepsis order set was initiated - Lactate trend 3.5 -> 2.0 - although may be secondary to seizures - Blood cultures drawn before antibiotics were given - Broad spectrum antibiotics started: Vancomycin -> switchted to sulfamethoxazole-trimethoprim based on sensitivities - Avoiding carbapenems and cephalosporins if possible as they may lower seizure threshold - In regards to fluids: - 30 mL/kg of IV fluids was not administered given SBP > 90, MAP > 65, lactic acid < 4 # Possible Gastric Outlet Obstruction due to Dislodged Gastrostomy Tube - Consulted General Surgery and spoke with Dr. Wiggins - recommendations appreciated - He repositioned tube # Intellectual Disability # Bipolar Disorder # ADHD - Resume home medications once able Anderson Stevens M.D.
[2022-03-31] MEDS: HALOPERIDOL LACT 5 MG/ML INJ IV PRN ×2 (12:50→22:10)
[2022-03-31] MEDS: TAMSULOSIN 0.4 MG SR CAP PO SCH (16:14)
[2022-03-31] MEDS: SMZ./TMP. 800/160 MG TABLET PO SCH (21:45)
[2022-04-01 04:58] LABS: Absolute Lymphocytes (CBC) 1.2 K/uL (0.7-4.9); Hematocrit 30.3 % (39.6-49.0); Lymphocytes % 28.3 % (15.3-44.8); MCV 85.7 fL (80-100); MPV 6.8 fL (7.6-11.3); RBC Red Blood Cell Count 3.53 M/uL (4.33-5.43)
[2022-04-01 05:12] LABS: Magnesium 2.1 mg/dL (1.8-2.4); Phosphorus 3.1 mg/dL (2.5-4.9); Potassium 3.9 mmol/L (3.5-5.1)
[2022-04-01] MEDS: SENOSIDES 8.6 MG TAB PO SCH ×2 (09:00→10:36)
[2022-04-01] MEDS: AMINO ACIDS PO SCH (09:00)
[2022-04-01] MEDS ORDERED: Pantoprazole (granules) 40 MG/BLIST PACKET FT SCH (09:00)
[2022-04-01] MEDS: PROTEIN HYDROLYS PO SCH (09:00)
[2022-04-01 09:14] VITALS: O2SAT 100
[2022-04-01] MEDS: SUCRALFATE 1 GM TABLET PO SCH ×2 (09:23→13:35)
[2022-04-01] MEDS: LORAZEPAM 0.5 MG TABLET PO SCH (09:23)
[2022-04-01] MEDS: ASCORBIC ACID 500 MG TABLET PO SCH (09:23)
[2022-04-01] MEDS: ENOXAPARIN 40 MG/0.4 ML SQ SCH (09:24)
[2022-04-01] MEDS: DOCUSATE NA 50 MG/5 ML UCUP PO SCH (09:24)
[2022-04-01] MEDS: SMZ./TMP. 800/160 MG TABLET PO SCH (09:24)
[2022-04-01] MEDS: levETIRAcetam 500 MG/5 ML OSYR PO SCH (09:24)
[2022-04-01] MEDS: SODIUM HYPOCHLORITE 0.25% 473 ML TOP SCH (09:24)
[2022-04-01] MEDS: POLYETHYL GLY 3350 17 GM/DOSE PO SCH (09:24)
[2022-04-01] MEDS: COLLAGENASE 30 GM OINTMENT TOP SCH (09:24)
[2022-04-01] MEDS: HALOPERIDOL LACT 5 MG/ML INJ IV PRN (11:35)
[2022-04-01 13:25] VITALS: TEMP 98
[2022-04-01 13:26] VITALS: BP 130/89
--- NOTE | 2022-04-01 13:27 | P.DS ---
Admission Date: 03/28/22 Discharge Date: 04/01/22 Disposition: TRANSFER TO LONGTERM Comment: [facility] Discharge Condition: GOOD Reason for Admission: Seizures patient on a ventilator Consultations: 1. Neurology 2. General Surgery 3. 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 Raji Mock is a 36 year old male with a past medical history significant for epilepsy, intellectual disability, bipolar disorder, ADHD, and PEG tube dependence [text] who was admitted to the [facility] on 03/28/2022 for an acute seizure. Upon presentation, there was concern for status epilepticus and he underwent endotracheal intubation. He was admitted to the ICU and Neurology was consulted. A CT head on 03/22/2022 revealed, "1. No intracranial hemorrhage. No acute skull fracture. 2. No acute cervical spine fracture." An MRI brain was attempted, but was unsuccesful as he would not lie still to obtain the images. An electroencephalogram was obtained, which revealed, "a markedly abnormal routine EEG due to frontal and central diaphasic sharp waves and a diffusely slow background. These findings are consistent with a diffuse but non-specific disturbance in cerebral activity. No eletrographic seizures were recorded." Dr. Rod has evaluated and cleared him for discharge with levetiracetam and an outpatient follow-up appointment. In regards to his stage IV sacral pressure wound and his possible gastric outlet obstruction due to his dislodged gastrostomy tube, General Surgery was consulted. He was evaluated by Dr. Wiggins. Dr. Wiggins re-positioned his PEG- tube and he began having bowel movements. His wound was evaluated for debridement and he recommended that this be managed medically with an additional 5 days of sulfamethoxazole-trimethoprim. He has cleared him for discharge from a surgical standpoint. On 04/01/2022, he was seen on rounds and deemed medically stable for discharge. He was discharged with instructions to schedule follow-up appointments with his PCP in 3-5 days, Neurology (Dr. Rod) in 5-7 days, and with General Surgery (Dr. Wiggins) in 1-2 weeks. His mother, Ms. Koehler, was given the opportunity to ask questions and reported no further questions. Furthermore, all questions were answered to the best of my ability. A copy of this discharge summary will be sent to the above providers to facilita te continuity of care. Today, I personally spent 25 minutes on his case, of which greater than 50% of the time was spent in patient education, counseling, and coordination of care as described above. - Physical Exam General: In no apparent distress HEENT: Atraumatic, Sclerae nonicteric Respiratory: Diminished Cardiovascular: No edema, Regular rate/rhythm, Normal S1 S2, No gallops, No rubs, No murmurs Gastrointestinal: Hypoactive, Soft and benign, Non-distended, No tenderness, No rebound, No guarding, Other (PEG-tube in place) Musculoskeletal: No clubbing Integumentary: No rashes, Pressure ulcer (about 8 x 10 cm, 1 inch deep. Stage IV sacral pressure ulcer.) Neurological: Difficult to assess given intellectual disability Vital Signs/Physical Exam: Temp Pulse Resp BP Pulse Ox 98 F 63 14 122/76 97 04/01/22 12:00 04/01/22 12:00 04/01/22 09:00 04/01/22 12:00 04/01/22 12:00 Laboratory Data at Discharge: WBC 4.30 K/uL (4.3-10.9) 04/01/22 04:42 Hgb 10.5 g/dL (13.6-17.9) L D 04/01/22 04:42 Hct 30.3 % (39.6-49.0) L 04/01/22 04:42 Plt Count 315 K/uL (152-406) 04/01/22 04:42 PT 12.8 SECONDS (9.5-12.5) H 03/28/22 12:23 INR 1.16 03/28/22 12:23 APTT 39.7 SECONDS (24.3-36.9) H 03/28/22 12:23 Sodium 139 mmol/L (136-145) 04/01/22 04:42 Potassium 3.9 mmol/L (3.5-5.1) 04/01/22 04:42 BUN 15 mg/dL (7-18) 04/01/22 04:42 Creatinine 0.34 mg/dL (0.55-1.3) L 04/01/22 04:42 Glucose 84 mg/dL (74-106) 04/01/22 04:42 Phosphorus 3.1 mg/dL (2.5-4.9) 04/01/22 04:42 Magnesium 2.1 mg/dL (1.8-2.4) 04/01/22 04:42 Total Bilirubin 0.6 mg/dL (0.2-1.0) 03/29/22 05:00 AST 21 U/L (15-37) 03/29/22 05:00 ALT 32 U/L (12-78) 03/29/22 05:00 Alkaline Phosphatase 96 U/L (45-117) D 03/29/22 05:00 Home Medications: Docusate Sodium 10 ml PO DAILY 03/09/22 Polyethylene Glycol 3350 [Miralax] 1 packet PO DAILY 03/09/22 levETIRAcetam [Levetiracetam] 7.5 ml PO Q12HR 03/09/22 Ferrous Sulfate [Ferrous Sulfate Elixir*] 5 ml PO DAILY 03/10/22 Lansoprazole [Prevacid] 1 cap PO [id number] 03/10/22 Sennosides [Senna] 1 tab PO DAILY 03/10/22 Sucralfate [Carafate*] 1 tab PO QID 03/10/22 Tamsulosin [Flomax*] 1 cap PO DAILY AFTER SUPPER 03/10/22 Acetaminophen 2 tab PO Q6HP PRN 03/29/22 Amino Acids/Protein Hydrolys [Pro-Stat Awc Liquid] 30 ml PO BID 03/29/22 Ascorbic Acid 1 tab PO BID 03/29/22 Bisacodyl [Gentle Laxative] 10 mg RC DAILYPRN PRN 03/29/22 Ipratropium/Albuterol Sulfate [Iprat-Albut 0.5-3(2.5) mg/3 ml] 3 ml IH Q4HP PRN 03/29/22 LORazepam [Ativan*] 0.5 mg PO BID 03/29/22 LORazepam [Ativan*] 0.5 ml IM Q12HP PRN 03/29/22 Lactulose 30 ml PO TIDP PRN 03/29/22 Collagenase [Santyl Ointment*] 1 appl TOP DAILY tube 04/01/22 Smz./Tmp. [Bactrim Ds 800 MG/160 MG*] 1 tab PO BID 5 Days #10 tab 04/01/22 New Medications: Smz./Tmp. [Bactrim Ds 800 MG/160 MG*] 1 tab PO BID 5 Days #10 tab Diet: Tube Feed Activity: Fall precautions Followup: Unknown,U [Primary Care Provider] - Koffi Rod MD [ASSOCIATE-ACTIVE - CAN ADMIT] - Baljeet Wiggins MD [ACTIVE - CAN ADMIT] - Time spent managing pt's care (in minutes): 25
== END 2022-04-01 15:30 | DRG 871 ==
LOC: ER 09:12 → ERHOLD 18:13 → 3RD-ICU 20:06
PROVIDERS: ADMIT Hospitalist; ATTEND Internal Medicine
PROC: 5A1945Z Respiratory Ventilation, 24-96 Consecutive Hours (ICD-10-PCS; principal; 2022-03-28)
PROC: 0BH17EZ Insertion of Endotracheal Airway into Trachea, Via Natural or Artificial Opening (ICD-10-PCS; 2022-03-28)
DX: A41.9 Sepsis, unspecified organism (principal); L89.154 Pressure ulcer of sacral region, stage 4; J96.01 Acute respiratory failure with hypoxia; L03.317 Cellulitis of buttock; K94.23 Gastrostomy malfunction; R64 Cachexia; Z68.1 Body mass index [BMI] 19.9 or less, adult; E87.3 Alkalosis; C68.9 Malignant neoplasm of urinary organ, unspecified; K31.1 Adult hypertrophic pyloric stenosis; R65.20 Severe sepsis without septic shock; G40.901 Epilepsy, unspecified, not intractable, with status epilepticus; F79 Unspecified intellectual disabilities; E87.6 Hypokalemia; K59.00 Constipation, unspecified; F90.9 Attention-deficit hyperactivity disorder, unspecified type; F31.9 Bipolar disorder, unspecified; B96.89 Other specified bacterial agents as the cause of diseases classified elsewhere; R31.29 Other microscopic hematuria; Z79.899 Other long term (current) drug therapy; Z20.822 Contact with and (suspected) exposure to COVID-19
CPT/HCPCS: 31500; 36415; 49465; 51702; 71045; 74018; 74177; 80048; 80053; 80177; 80202; 81003; 81015; 82565; 82805; 82947; 83605; 83735; 83880; 84100; 84132; 85025; 85610; 85730; 87040; 87070; 87086; 87088; 87205; 87804; 87811; 93005; 94002; 94003; 95816; 99291; J0330; J0692; J1630; J1650; J1953; J2250; J2704; J3010; J3370; J3475; J3480; J3590; J7030; J7050; Q9967

== ENCOUNTER 2022-04-02 08:06 | Emergency (ER) | payer OTHER ==
--- OUTSIDE RECORDS SUMMARY | 2022-04-02 08:18 | XMS REPORT | Continuity of Care Document ---
:1985 Author Organization [facility] t Address [address] [place] [address] Care Team Providers Name Role Phone Asked, No Pcp Primary Care Physician Unavailable WANDA SHUKLA Attending Clinician Unavailable KAMILLE BETTENCOURT Attending Clinician Unavailable SVEN_STACI_Neftaly Attending Clinician Unavailable Mariela Linares Attending Clinician [phone] Damir Nieves Attending Clinician [phone] Isidoro Kumar Attending Clinician ISIDORO KUMAR Attending Clinician Unavailable ANNIE MOON Attending Clinician Unavailable ARVIND LOWE Attending Clinician Unavailable Arvind Lowe Attending Clinician Chris Vega Attending Clinician MODESTO CLOUD Attending Clinician Unavailable Ai BECKER, Modesto Cruz Attending Clinician [phone] Zain David Attending Clinician Unavailable Molina Hernández MD Attending Clinician Sarai BECKER, Annie Henley Attending Clinician Lion Parry MD, Kym Attending Clinician [phone] Richardson BECKER, Marla Polanco Attending Clinician Elida Peter MD Attending Clinician Seun Lucero, Malissa Martin Attending Clinician + [phone] ELIDA PETER Attending Clinician Unavailable KYM GUTIERREZ Attending Clinician Unavailable Wanda Shukla Attending Clinician BARRERA ANDERSON Attending Clinician Unavailable Sylvia BECKER, Barrera Siddiqui Attending Clinician [phone] BRII CAMPBELL Attending Clinician Unavailable Brii Campbell MD Attending Clinician Jazmin Ham Attending Clinician Handy Hammonds Attending Clinician Rony Penny Attending Clinician Annette Butler Attending Clinician Kingsley Barney Attending Clinician Vijay Combs Attending Clinician Alexis Shields Attending Clinician _STACI_Vijay_Vishnu Admitting Clinician Unavailable Isidoro Kumar Admitting Clinician ISIDORO KUMAR Admitting Clinician Unavailable ARVIND LOWE Admitting Clinician Unavailable Arvind Lowe Admitting Clinician Chris Vega Admitting Clinician Physician, No Primary or Family Admitting Clinician Unavaila MALISSA Telles Admitting Clinician Unavailable Nasra Deeshanna Kianna Admitting Clinician Annette Butler Admitting Clinician Vijay Combs Admitting Clinician Payers Payer Name Policy Type Policy Number Effective Date Expiration Date [place] MEDICAID [id number] 2018 00:00:00 MEDICARE PART A & [id number] 2010 B 00:00:00 [place]: [id number] 2010 [place] 00:[place]:00 [place] [id number] [place] MEDIC[place] A B [id number] 2010 00:00:00 TP14 MAO SSI [id number] 2018 RELATED 00:00:00 Problems Condition Condition Condition Status Onset Resolution Last Treating Co mments Source Name Details Category Date Date Treatment Clinician Date Bed-ridden Bed-ridden Problem Active [facility] 03-29 Medical 00:00: 00 Seen in Seen in Problem Active [facility] -[facility] Medical home Home 00:00: 00 At high At High Problem Active [facility] risk for Risk for 03-29 Medica l fall Fall 00:00: 00 Chronic Chronic Problem Active [facility] pain Pain 03-25 Medical following Following 00:00: trauma Trauma 00 Influenza Influenza Problem Active [facility] via 03-25 Medical 00:00: 00 COVID-19 Covid-19 Problem Active [facility] - Medical 00:00: 00 Total Total Problem Active [facility] self-care Self-care 8-28 Medi jonatan deficit Deficit 00:00: 00 Pressure Pressure Problem Active [facility] injury of Injury of 8-25 Medi jonatan sacral Sacral 00:00: region of Region of 00 back 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 8 Medical 00:00: 00 Functional Functional Problem Active [...] Disease Active [facility] retention retention 12-14 Heal 00:00: 00 AMS AMS Disease Active [facility] [...] Heal adult adult Other Other Disease Active [place] insomnia insomnia Health Bipolar 1 Bipolar 1 Disease Active [facility] ris disorder disorder Health Elevated Elevated Disease Active [facility] lithium lithium Health level level Anemia Anemia Disease Active [facility] Weight Weight Disease Active [place] loss loss Health Agitation Agitation Disease Active [facility] Health 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 NO KNOWN Allergy Active [facility] Social History Social Habit Start Date Stop Date Quantity Comments Source History [facility] Food [facility] Worry History [facility] Food 2021-12-23 2021-12-23 1 [facility] Scarcity 00:00:00 00:00:00 Tobacco use and 2021-12-23 2021-12-23 Smokeless tobacco [facility] exposure 00:00:00 00:00:00 non-user Alcohol intake 2021-12-23 2021-12-23 Lifetime [facility] 00:[facility]:00 00:00:00 non-drinker (finding) Sex Ass[birth year] [facility] 00:00:00 00:00:00 Smoking Status Start Date Stop Date Source Tobacco smoking consumption unknown [facility] Never Smoker [facility] Medical Medications Ordered Filled Start Stop Current Ordering Indication Dosage Frequency Signature Comments Components Source Medication Medication Date Date Medication? Clinician (SIG) Name Name furosemide 2021-0 2- No 20mg QD Take [...] al 40 MG 00 Center tablet levETIRAcet 2-0 Yes 500mg Q.5D Take 500 [...] tablet 00 (two) Center times daily. tamsulosin 2021-0 2021- No [facility] .4mg QD Take 1 [place] (FLOMAX) 6-15 09-13 l capsule by [facility] 0.4 mg 00:00: 23:59 disability mouth capsule 00 :00 daily for 90 days. Start 12/16/21. haloperidoL 2021-0 2021- No [facility] 10mg QD Take 1 [place] (HALDOL) 10 6-15 09-13 l tablet by alth mg tablet 00:00: 23:59 disability mouth 00 :00 daily for 90 days. Start 12/16/21. tamsulosin 2021-0 202- No .4mg Take 0.[address] [facility] [address] (FLOMAX) 6-15 09-13 [facility] mg Cap 00:00: 23:59 mouth. Medi jonatan 24 hr 00 :00 Center capsule tamsulosin 2021-0 2021- No [facility] .4mg QD Take 1 [place] (FLOMAX) 6-15 09-13 l capsule by [facility] 0.4 mg 00:00: 23:59 disability mouth [...] [place] (FLOMAX) 6-15 09-13 l capsule by [facility] 0.4 mg 00:00: 23:59 disability mouth [...] :00 Center capsule tamsulosin 2022-0 2022- No [facility] .4mg QD Take 1 [place] (FLOMAX) 6-15 09-13 l capsule by [facility] 0.4 mg 00:00: 23:59 disability mouth capsule 00 :00 daily for 90 days. Start 12/16/21. tamsulosin 2-0 2022- No .4mg Take 0.[address] [facility] [address] (FLOMAX) 6-15 09-13 [facility] 0.4 mg Cap 00:00: 23:59 mouth. Medi jonatan 24 hr 00 :00 Center capsule haloperidoL 2021-0 2022- No [facility] 10mg QD [...] hr 00 :00 Center capsule tamsulosin 2021-0 2- No [facility] .4mg QD Take 1 [place] (FLOMAX) 6-15 09-13 l capsule by [facility] 0.4 mg 00:00: 23:59 disability mouth capsule 00 :00 daily for 90 days. Start 12/16/21. tamsulosin 2-0 2022- No .4mg Take 0.[address] [facility] [address] (FLOMAX) 6-15 09-13 [facility] 0.4 mg Cap 00:00: 23:59 mouth. Medi jonatan 24 hr 00 :00 Center capsule haloperidoL 2021-0 2- No [facility] 10mg QD [...] [place] (FLOMAX) 6-15 09-13 l capsule by [facility] 0.4 mg 00:00: 23:59 disability mouth capsule 00 :00 daily for 90 days. Start 12/16/21. tamsulosin 2021-0 2021- No .4mg Take 0.[address] [facility] [address] (FLOMAX) 6-15 09-13 [facility] 0.4 mg Cap 00:00: 23:59 mouth. Medi jonatan 24 hr 00 :00 Center capsule haloperidoL 2021-2021- No [facility] 10mg QD Take 1 [place] (HALDOL) 10 6-15 09-13 l tablet by alth mg tablet 00:00: 23:59 disability mouth 00 :00 daily for 90 days. Start 12/16/21. tamsulosin 2021-0 2021- No .4mg Take 0.[address] (FLOMAX) 15 -13 mg by [facility] 0.4 mg Cap 00:00: 23:59 mouth. Medi jonatan 24 hr 00 :00 Center capsule tamsulosin 2021-2021- No [facility] .4mg QD Take 1 [place] (FLOMAX) 6-15 09-13 l capsule by [facility] 0.4 mg 00:00: 23:59 disability mouth capsule 00 :00 daily for 90 days. Start 12/16/21. haloperidoL 2021-0 2021- No [facility] 10mg QD Take 1 [place] (HALDOL) 10 6-15 09-13 l tablet by alth mg tablet 00:00: 23:59 disability mouth 00 :00 daily for 90 days. Start 12/16/21. tamsulosin 2021- No [facility] .4mg QD Take 1 [place] (FLOMAX) 6-15 09-13 l capsule by [facility] 0.4 mg 00:00: 23:59 disability mouth capsule 00 :00 daily for 90 days. Start 12/16/21. haloperidoL 2021-0 2021- No [facility] 10mg QD Take 1 [place] (HALDOL) 10 6-15 09-13 l tablet by alth mg tablet 00:00: 23:59 disability mouth 00 :00 daily for 90 days. Start 12/16/21. clonazePAM 2021- Yes Bipolar 1 .25mg Q.5D Take 1/2 [...] Medical tablet 00 Center clonazePAM 2022-0 Yes Bipolar 1 .25mg Q.5D Take 1/2 [facility] (KLONOPIN) 6-14 disorder (ONE-HALF) Health 0.5 mg 00:00: tablet by tablet 00 mouth 2 times daily clonazePAM 2022-0 Yes .25mg Take 0.[address] (KlonoPIN) 6-14 [facility] 0.5 MG 00:00: mouth. Medical tablet 00 Center clonazePAM 2022-0 Yes Bipolar 1 .25mg Q.5D Take 1/2 [place] (KLONOPIN) 6-14 disorder (ONE-HALF) Health 0.5 mg 00:00: tablet by tablet 00 mouth 2 times daily clonazePAM 2022-0 Yes .25mg Take 0.[address] (KlonoPIN) 6-14 [facility] by [facility] 0.5 MG 00:00: mouth. Medical tablet 00 Center clonazePAM 2022-0 Yes Bipolar 1 .25mg Q.5D [...] mouth 2 times daily clonazePAM 2-0 Yes Bipolar 1 .25mg Q.5D Take 1/2 [facility] (KLONOPIN) 6-14 disorder (ONE-HALF) Health 0.5 mg 00:00: tablet by tablet 00 mouth 2 times daily clonazePAM 2021-0 Yes Bipolar 1 .25mg Q.5D Take 1/2 [facility] (KLONOPIN) 6-14 disorder (ONE-HALF) Health 0.5 mg 00:00: tablet by tablet 00 mouth 2 times daily clonazePAM 2021-0 Yes Bipolar 1 .25mg Q.5D Take 1/2 [facility] (KLONOPIN) 6-14 disorder (ONE-HALF) Health 0.5 mg 00:00: tablet by tablet 00 mouth 2 times daily sennosides- 2021-2021- No [facility] 2{tbl} Q.5D Take 2 [place] docusate 6-14 09-12 l tablets by [facility] sodium 00:00: 23:59 disability mouth 2 (SENNA 00 :00 (two) PLUS) times a 8.6-50 mg day for 90 tablet days mirtazapine 2021-2021- No [facility] 15mg Take 1 [place] (REMERON) 6- 09-12 l tablet by [facility] 15 mg 00:00: 23:59 disability mouth at tablet 00 :00 bedtime nightly for 90 days lithium 2021-2021- No [facility] 300mg Q.5D Take 1 [place] carbonate 6-14 09-12 l capsule by [facility] (ESKALITH) 00:00: 23:59 disability mouth 2 300 mg 00 :00 (two) capsule times a day for 90 days haloperidoL 2021-2021- No [facility] 20mg Take 2 [place] (HALDOL) 10 6-14 09-12 l tablets by ealth mg tablet 00:00: 23:59 disability mouth at 00 :00 bedtime nightly for 90 days cloNIDine 2021-2021- No [facility] .1mg Take 1 [place] HCL 6-14 09-12 l tablet by Health [...] [facility] 6-14 09-12 [facility] (CATAPRES) 00:00: 23:59 mouth. Medi jonatan 0.1 [...] 8.6-50 mg day for 90 tablet days cloNIDine 2021- No .1mg Take 0.[address] [facility] HCL 6-14 09-12 [facility] (CATAPRES) 00:00: 23:59 mouth. Medi jonatan 0.1 MG 00 :00 Center tablet senna-docus 2021- No 2{tbl} Take [address] ate 6-14 09-12 tablets by [facility] (SENOKOT S) 00:00: 23:59 mouth. Med ical 8.6-50 mg 00 :00 Center per tablet mirtazapine 2021- No [facility] 15mg Take 1 [place] (REMERON) 6-14 09-12 l tablet by Heal th 15 mg 00:00: 23:59 disability mouth at tablet 00 :00 bedtime nightly for 90 days cloNIDine 2021- No .1mg Take 0.[address] HCL 6-14 09-12 mg by [facility] (CATAPRES) 00:00: 23:59 mouth. Medi jonatan 0.1 MG 00 :00 Center tablet lithium 2021- No [facility] 300mg Q.5D Take 1 [place] carbonate 6-14 09-12 l capsule by [facility] ([facility]) 00:00: 23:59 disability mouth 2 300 mg 00 :00 (two) capsule times a day for 90 days haloperidoL 2021- No [facility] 20mg Take 2 [place] (HALDOL) 10 6-14 09-12 l tablets by H ealth mg tablet 00:00: 23:59 disability mouth at 00 :00 bedtime nightly for 90 days senna-docus 2021- No 2{tbl} Take [address] ate 6-14 09-12 tablets by [facility] (SENOKOT S) 00:00: 23:59 mouth. Med ical 8.6-50 mg 00 :00 Center per tablet cloNIDine 2021- No [facility]lectua .1mg Take 1 [place] HCL 6-14 09-[address] [facility] (CATAPRES) 00:00: 23:59 disability mouth 0.1 mg 00 :00 every tablet evening cloNIDine 2021-0 2021- No .1mg Take 0.[address] [facility] [facility] HCL 6-14 09-12 mg by [facility] (CATAPRES) 00:00: 23:59 mouth. Medi jonatan 0.1 MG 00 :00 Center tablet amitriptyli 2021- No [facility] 10mg Take 1 [facility] (ELAVIL) 6-14 09-12 l tablet by He julian 10 mg 00:00: 23:59 disability mouth at tablet 00 :00 bedtime nightly senna-docus 2021-2021- No 2{tbl} Take 2 C [...] 8.6-50 mg day for 90 tablet days cloNIDine 2021- No .1mg Take 0.[address] [facility] HCL 6-14 09-12 [facility] by [facility] (CATAPRES) 00:00: 23:59 mouth. Medi jonatan 0.1 MG 00 :00 Center tablet mirtazapine 2021- No [facility] 15mg Take 1 [facility] (REMERON) 6-14 09-12 l tablet by Heal th 15 mg 00:00: 23:59 disability mouth at tablet 00 :00 bedtime nightly for 90 days senna-docus 2021- No 2{tbl} Take [address] ate 6-14 09-12 tablets by [facility] (SENOKOT S) 00:00: 23:59 mouth. Med ical 8.6-50 mg 00 :00 Center per tablet lithium 2021- No Intellectua 300mg Q.5D Take 1 [place] carbonate 6-14 09-12 l capsule by [facility] (ESKALITH) 00:00: 23:59 disability mouth 2 300 mg 00 :00 (two) capsule times a day for 90 days cloNIDine 2021- No .1mg Take 0.[address] HCL 6-14 09-12 [facility] by [facility] (CATAPRES) 00:00: 23:59 mouth. Medi jonatan 0.1 MG 00 :00 Center tablet haloperidoL 2021- No [facility] 20mg Take 2 [place] (HALDOL) 10 6-14 09-12 l tablets by H ealth mg tablet 00:00: 23:59 disability mouth at 00 :00 bedtime nightly for 90 days senna-docus 2021-2021- No 2{tbl} Take [address] ate 6-14 09-12 [facility]SENOKOT [facility] 00:00: 23:59 mouth. Med ical 8.6-50 mg 00 :00 Center per tablet cloNIDine 2021- No Intellectua .1mg Take 1 [place] HCL 6-14 09-[address] [facility] (CATAPRES) 00:00: 23:59 disability mouth 0.1 [...] carbonate 6-14 09-12 l capsule by [facility] (ESKALITH) 00:00: 23:59 disability mouth 2 [...] HCL 6-14 09-[address] [facility] (CATAPRES) 00:00: 23:59 disability mouth 0.1 [...] (REMERON) 6-14 09-12 l tablet by [facility] 15 mg 00:00: 23:59 disability mouth at tablet 00 :00 bedtime nightly for 90 days lithium 2021- No Intellectua 300mg Q.5D Take 1 [place] carbonate 6-14 09-12 l capsule by [facility] (ESKALITH) 00:00: 23:59 disability mouth 2 [...] HCL 6-14 09-[address] [facility] (CATAPRES) 00:00: 23:59 disability mouth 0.1 mg 00 :00 every tablet evening amitriptyli 2021- No [facility] 10mg Take 1 [place] [facility] (ELAVIL) 6-14 09-12 l tablet by alth 10 mg 00:00: 23:59 disability mouth at tablet 00 :00 bedtime nightly sennosides- 2021- No [facility]ua 2{tbl} Q.5D Take 2 [place] docusate 6-14 09-12 l tablets by [facility] sodium 00:00: 23:59 disability mouth 2 (SENNA 00 :00 (two) PLUS) times a 8.6-50 mg day for 90 tablet days mirtazapine 2021- No [facility] 15mg Take 1 [place] (REMERON) 6-14 09-12 l tablet by [facility] 15 mg 00:00: 23:59 disability mouth at tablet 00 :00 bedtime nightly for 90 days lithium 2021- No Intellectua 300mg Q.5D Take 1 [place] carbonate 6-14 09-12 l capsule by [facility] (ESKALITH) 00:00: 23:59 disability mouth 2 [...] HCL 6-14 09-[address] [facility] (CATAPRES) 00:00: 23:59 disability mouth 0.1 mg 00 :00 every tablet evening amitriptyli 2021- No [facility]ua 10mg Take 1 [place] [facility] (ELAVIL) 6-14 09-12 l tablet by [facility] 10 mg 00:00: 23:59 disability mouth at tablet 00 :00 bedtime nightly sennosides- 2021- No Intellectua 2{tbl} Q.5D Take 2 [place] docusate 6-14 09-12 l tablets by [facility] sodium 00:00: 23:59 disability mouth 2 (SENNA 00 :00 (two) PLUS) times a 8.6-50 mg day for 90 tablet days mirtazapine 2021- No [facility] 15mg Take 1 [place] (REMERON) 6-14 09-12 l tablet by [facility] 15 mg 00:00: 23:59 disability mouth at tablet 00 :00 bedtime nightly for 90 days lithium 2021-2021- No [facility]ua 300mg Q.5D Take 1 [place] carbonate 6-14 09-12 l capsule by [facility] ([facility]) 00:00: 23:59 disability mouth 2 300 mg 00 :00 (two) capsule times a day for 90 days haloperidoL 2021-2021- No [facility]ua 20mg Take 2 [place] (HALDOL) 10 6-14 09-12 l tablets by H ealth mg tablet 00:00: 23:59 disability mouth at 00 :00 bedtime nightly for 90 days cloNIDine 2021-0 2021- No [facility] .1mg Take 1 [place] HCL 6-14 09-[address] [facility] (CATAPRES) 00:00: 23:59 disability mouth 0.1 mg 00 :00 every tablet evening amitriptyli 2021-2021- No [facility]lectua 10mg Take 1 [place] [facility] (ELAVIL) 6-14 09-12 l tablet by [facility] 10 mg 00:00: 23:59 disability mouth at tablet 00 :00 bedtime nightly sennosides- 2021-2021- No [facility] 2{tbl} Q.5D Take 2 [place] docusate 6-14 09-12 l tablets by [facility] sodium 00:00: 23:59 disability mouth 2 (SENNA 00 :00 (two) PLUS) times a 8.6-50 mg day for 90 tablet days mirtazapine 2021- No [facility] 15mg Take 1 [place] (REMERON) 6-14 09-12 l tablet by [facility] 15 mg 00:00: 23:59 disability mouth at tablet 00 :00 bedtime nightly for 90 days lithium 2021-0 2021- No [facility]ua 300mg Q.5D Take 1 [place] carbonate 6-14 09-12 l capsule by [facility] ([facility]) 00:00: 23:59 disability mouth 2 300 mg 00 :00 (two) capsule times a day for 90 days haloperidoL 2021-0 2021- No [facility]ua 20mg Take 2 [place] (HALDOL) 10 6-14 09-12 l tablets by ealth mg tablet 00:00: 23:59 disability mouth at 00 :00 bedtime nightly for 90 days cloNIDine 2021-0 2021- No [facility] .1mg Take 1 [place] HCL 6-14 09-[address] [facility] (CATAPRES) 00:00: 23:59 disability mouth 0.1 mg 00 :00 every tablet evening amitriptyli 2022-0 2022- No [facility]lectua 10mg Take 1 [place] [facility] (ELAVIL) 6-14 09-12 l tablet by He alth 10 mg 00:00: 23:59 disability mouth at tablet 00 :00 bedtime nightly sucralfate 2022-0 Yes 1g Q.25D Take 1 [...] Medical tablet 00 times Center daily. sucralfate 2-0 Yes 1g Q.25D Take 1 g [facility] [...] tablet 00 times Center daily. lithium 300 2-0 Yes 300mg Q.[id number] Take [address] [facility] MG capsule 5-27 [id number] mg by [facility] 00:00: 3D mouth 3 Medical 00 (three) Center times daily. lithium 300 2022-0 Yes 300mg Q.[id number] Take [address] MG capsule 5-27 [id number] mg by [facility] 00:00: 3D mouth 3 Medical 00 (three) Center times daily. lithium 300 2022-0 Yes 300mg Q.[id number] Take [address] MG capsule 5-27 [id number] mg by [facility] 00:00: 3D mouth 3 Medical 00 (three) Center times daily. lithium 300 2022-0 Yes 300mg Q.[id number] Take [address] MG capsule 5-27 [id number] mg by [facility] k[facility] 00:00: 3D mouth 3 Medical 00 (three) Center times daily. lithium 300 2022-0 Yes 300mg Q.[id number] Take [address] MG capsule 5-27 [id number] mg by [facility] 00:00: 3D mouth 3 Medical 00 (three) Center times daily. lithium 300 2022-0 Yes 300mg Q.[id number] Take [address] MG capsule 5-27 [id number] mg by [facility] 00:00: 3D mouth 3 Medical 00 (three) Center times daily. lithium 300 2022-0 Yes 300mg Q.[id number] Take [address] MG capsule 5-27 [id number] mg by [facility] 00:00: 3D mouth 3 Medical 00 (three) Center times daily. lithium 300 2022-0 Yes 300mg Q.[id number] Take [address] MG capsule 5-27 [id number] mg by [facility] k[facility] 00:00: 3D mouth 3 Medical 00 (three) Center times daily. amitriptyli 2021-0 Yes 10mg QD Take [...] tablet 12 (two) Center times daily. haloperidoL 202-0 Yes 10mg Q.25D Take [address] [facility] [address] (HALDOL) 10 5-25 by mouth 4 [facility] kes MG tablet 16:23: (four) Medica l 12 times Center daily. mirtazapine 202-0 Yes 15mg QD Take [address] [facility] (REMERON) 5-25 by mouth [facility] 15 MG 16:23: nightly. Medical tablet 12 [place] OLANZapine 2021-0 Yes 10mg QD Take [address] (ZYPREXA) 5-25 by mouth [facility] 10 MG 16:23: nightly. Medical tablet 12 [place] primidone 2021-0 Yes 50mg Q.25D Take [address] (MYSOLINE) 5-25 by mouth 4 Chrissie es 50 MG 16:23: (four) Medical tablet 12 times Center daily. propranoloL 2021-0 Yes 40mg Q.[id number] Take [address] [facility] (INDERAL) 5-25 [id number] by mouth 3 [facility] 40 MG 16:23: 3D (three) Medical tablet 12 times Center daily. traZODone 2021-0 Yes 100mg QD Take [address] (DESYREL) 5-25 mg by [facility] 100 MG 16:23: mouth Medical tablet 12 nightly. [place] mirtazapine 2021-0 Yes 15mg QD Take [address] [facility] (REMERON) 5-25 by mouth [facility] 15 MG 16:23: nightly. Medical tablet 12 [place] OLANZapine 2021-0 Yes 10mg QD Take [address] (ZYPREXA) 5-25 by mouth [facility] 10 MG 16:23: nightly. Medical tablet 12 [place] primidone 2021-0 Yes 50mg Q.25D Take [address] (MYSOLINE) 5-25 by mouth 4 Chrissie es 50 MG 16:23: (four) Medical tablet 12 times Center daily. propranoloL 2022-0 Yes 40mg Q.[id number] Take [address] [facility] (INDERAL) 5-25 [id number] by mouth 3 [facility] 40 MG 16:23: 3D (three) Medical tablet 12 times Center daily. traZODone 2022-0 Yes 100mg QD Take [address] (DESYREL) 5-25 mg by [facility] 100 MG 16:23: mouth Medical tablet 12 nightly. [place] amitriptyli 0 Yes 10mg QD Take [address] ne (ELAVIL) 5-25 by mouth Luke s 10 MG 16:23: nightly. Medical tablet 12 [place] benztropine 2021-0 Yes 2mg Q.5D Take 2 [...] 15 MG 16:23: nightly. Medical tablet 12 [place] OLANZapine 0 Yes 10mg QD Take [address] (ZYPREXA) 5-25 by mouth [facility] 10 MG 16:23: nightly. Medical tablet 12 [place] primidone 2021-0 Yes 50mg Q.25D Take [address] (MYSOLINE) 5-25 by mouth 4 Chrissie es 50 MG 16:23: (four) Medical tablet 12 times Center daily. propranoloL 2021-0 Yes 40mg Q.[id number] Take [address] [facility] (INDERAL) 5-25 [id number] by mouth 3 [facility] 40 MG 16:23: 3D (three) Medical tablet 12 times Center daily. traZODone 2021-0 Yes 100mg QD Take [address] (DESYREL) 5-25 mg by [facility] 100 MG 16:23: mouth Medical tablet 12 nightly. [place] amitriptyli 0 Yes 10mg QD Take [address] [facility] ne (ELAVIL) 5-25 by mouth Luke s 10 MG 16:23: nightly. Medical tablet 12 [place] benztropine 2021-0 Yes 2mg Q.5D Take [address] (COGENTIN) 5-25 by mouth 2 Chrissie es 2 MG tablet 16:23: (two) Medic al 12 times Center daily. clorazepate 202-0 Yes 3.75mg Q.5D Take 3.[address] [...] 10 MG 16:23: nightly. Medical tablet 12 [place] primidone 2021-0 Yes 50mg Q.25D Take [address] (MYSOLINE) 5-25 by mouth 4 Chrissie es 50 MG 16:23: (four) Medical tablet 12 times Center daily. propranoloL 2021-0 Yes 40mg Q.[id number] Take [address] [facility] (INDERAL) 5-25 [id number] by mouth 3 [facility] 40 MG 16:23: 3D (three) Medical tablet 12 times Center daily. traZODone 2021-0 Yes 100mg QD Take [address] (DESYREL) 5-25 mg by [facility] 100 MG 16:23: mouth Medical tablet 12 nightly. [place] amitriptyli 2021-0 Yes 10mg QD Take 10 [...] Medica l 12 times Center daily. mirtazapine 2022-0 Yes 15mg QD Take 15 mg [facility] [...] times Center daily. propranoloL 2021-0 Yes 40mg Q.[id number] Take [address] [facility] (INDERAL) 5-25 [id number] by mouth 3 [facility] 40 MG 16:23: 3D (three) Medical tablet 12 times Center daily. traZODone 2021-0 Yes 100mg QD Take [address] (DESYREL) 5-25 mg by [facility] 100 MG 16:23: mouth Medical tablet 12 nightly. [place] amitriptyli 2021-0 Yes 10mg QD Take [address] [address] ne (ELAVIL) 5-25 by mouth [facility] 10 MG 16:23: nightly. Medical tablet 12 [place] benztropine 2021-0 Yes 2mg Q.5D Take 2 [...] 10 MG 16:23: nightly. Medical tablet 12 [place] primidone 2021-0 Yes 50mg Q.25D Take [address] (MYSOLINE) 5-25 by mouth 4 Chrissie es 50 MG 16:23: (four) Medical tablet 12 times Center daily. propranoloL 2021-0 Yes 40mg Q.[id number] Take [address] [facility] [facility] (INDERAL) 5-25 [id number] by mouth 3 [facility] 40 MG 16:23: 3D (three) Medical tablet 12 times Center daily. traZODone 2021-0 Yes 100mg QD Take [address] (DESYREL) 5-25 mg by [facility] 100 MG 16:23: mouth Medical tablet 12 nightly. [place] amitriptyli 0 Yes 10mg QD Take [address] ne (ELAVIL) 5-25 by mouth Luke [facility] 10 MG 16:23: nightly. Medical tablet 12 [place] benztropine 0 Yes 2mg Q.5D Take 2 [...] 15 MG 16:23: nightly. Medical tablet 12 [place] OLANZapine 2021-0 Yes 10mg QD Take [address] (ZYPREXA) 5-25 by mouth [facility] 10 MG 16:23: nightly. Medical tablet 12 Center primidone 2021-0 Yes 50mg Q.25D Take [address] (MYSOLINE) 5-25 by mouth 4 Chrissie es 50 MG 16:23: (four) Medical tablet 12 times Center daily. propranoloL 2021-0 Yes 40mg Q.[id number] Take [address] [facility] (INDERAL) 5-25 [id number] by mouth 3 [facility] 40 MG 16:23: 3D (three) Medical tablet 12 times Center daily. traZODone 2021-0 Yes 100mg QD Take [address] [facility] (DESYREL) 5-25 mg by [facility] 100 MG 16:23: mouth Medical tablet 12 nightly. [facility] amitriptyli 0 Yes 10mg QD Take 10 [...] times Center daily. propranoloL 2021-0 Yes 40mg Q.[id number] Take [address] [facility] (INDERAL) 5-25 [id number] by mouth 3 [facility] 40 MG 16:23: [...] tablet 12 (two) Center times daily. haloperidoL 0 Yes 10mg Q.25D Take 10 mg [facility] [...] for edical 17 00 :00 5 days. [facility] gram/dose powder polyethylen 2021- No 17g QD Take [address] [facility] e glycol 07-30 by mouth [facility] (GLYCOLAX) 00:00: 23:59 daily for edical 17 00 :00 5 days. Center gram/dose powder polyethylen 2021- No 17g QD Take [address] [facility] e glycol 07-30 by mouth [facility] (GLYCOLAX) 00:00: 23:59 daily for edical 17 00 :00 5 days. [facility] gram/dose powder polyethylen No 17g QD Take [address] [facility] e glycol 07-30 by mouth [facility] (GLYCOLAX) 00:00: 23:59 daily for edical 17 00 :00 5 days. [facility] gram/dose powder acetaminoph acetaminoph No acetaminop [facility] [...] a route. route. day by oral route. acetaminoph acetaminoph No acetaminop [facility] en 300 [...] Time Observation Value Comments Source BP Diastolic 2022-03-22 00:00:00 55 mm[Hg] [facility] Height 2022-03-22 00:00:00 70 [in_i] [facility] BMI (Body Mass Index) 2022-03-22 00:00:00 13.4 kg/m2 [facility] BP Systolic 2022-03-22 00:00:00 104 mm[Hg] [facility] Body Weight 2022-03-22 00:00:00 1492 [oz_av] [facility] BP Diastolic 2022-03-16 00:00:00 68 mm[Hg] [facility] Height 2022-03-16 00:00:00 70 [in_i] [facility] BP Systolic 2022-03-16 00:00:00 109 mm[Hg] [facility] Body Weight 2022-03-16 00:00:00 1492 [oz_av] [facility] Polanco edical HEIGHT 2022-01-12 15:34:00 162.6 cm WEIGHT 2022-01-12 [...] kg Systolic blood 2022-01-12 17:37:00 114 mm[Hg] [facility] Diastolic blood 2022-01-12 17:37:00 74 mm[Hg] [facility] Heart rate 2022-01-12 17:37:00 60 /min [facility] Respiratory rate 2022-01-12 17:37:00 16 /min [facility] Oxygen saturation in 2022-01-12 17:37:00 98 /min [facility] Arterial blood by Medical Ce nter Pulse oximetry Body temperature 2022-01-12 15:34:00 36.67 Darling [facility] Body height 2022-01-12 15:34:00 162.6 cm [facility] Body weight 2022-01-12 15:34:00 54.432 kg [facility] BMI 2022-01-12 15:34:00 20.60 kg/m2 [facility] Systolic blood 2021-12-23 11:21:00 89 mm[Hg] [facility] pressure Diastolic blood 2021-12-23 11:21:00 56 mm[Hg] [facility] Heart rate 2021-12-23 11:21:00 64 /min [facility] Respiratory rate 2021-12-23 11:21:00 18 /min [facility] Body height 2021-12-23 11:21:00 167.6 cm [facility] Body weight 2021-12-23 11:21:00 51.71 kg [facility] BMI 2021-12-23 11:21:00 18.40 kg/m2 [facility] Body temperature 2021-12-16 11:10:[address] [facility] Oxygen saturation in 2021-12-16 11:10:00 97 /min [facility] Arterial blood by Pulse oximetry Respiratory rate 2021-07-30 18:40:00 20 /min [facility] Body height 2021-07-30 18:40:00 177.8 cm [facility] Body weight 2021-07-30 18:40:00 54.1 kg [facility] BMI 2021-07-30 18:40:00 17.11 kg/m2 [facility] Oxygen saturation in 2021-07-30 18:40:00 100 /min [facility] Arterial blood by Medical Ce nter Pulse oximetry Systolic blood 2021-07-30 18:40:00 102 mm[Hg] [facility] Diastolic blood 2021-07-30 18:40:00 60 mm[Hg] [facility] S t [facility] Heart rate 2021-07-30 18:40:00 56 /min [facility] Body temperature 2021-07-30 18:40:00 36.61 Darling [facility] Procedures Procedure Date / Time Performed Performing Clinician Sourkristin e CBC W/PLT COUNT & AUTO 2022-01-12 16:35:[address] [place] [address] [facility] COMPREHENSIVE METABOLIC 2022-01-12 16:35:[address] [place] [address] [facility] PAN[facility] B-TYPE NATRIURETIC FACTOR 2022-01-12 16:35:[address] [facility] CBC W/PLT COUNT & AUTO 2022-01-12 16:35:[address] [place] [address] [facility] CBC (WITHOUT 2021-12-23 12:16:00 Annie Moon ealth DIFFERENTIAL) COMPREHENSIVE METABOLIC 2021-12-23 12:16:00 Annie Moon [facility] PANEL HGB/HCT 2021-12-15 15:09:00 Ruthy Matthews Hea lth XRAY MODIFIED BARIUM 2021-12-15 11:40:00 Ruthy Matthews [facility] s Health SWALLOW W CINE/VIDEO (MBS) GLUCOSE POC 2021-12-15 10:53:00 Elida Peter LIVER PROFILE 2021-12-15 04:50:00 Talha Kohli P BASIC METABOLIC PANEL 2021-12-15 04:50:[address] [facility] Malissa P CBC/DIFF 2021-12-15 04:50:00 Talha Kohli [place] P CBC 2021-12-15 04:50:00 Talha Kohli [place] P DIFFERENTIAL, MANUAL-[facility] 2021-12-15 04:50:00 Seun, [facility] Malissa P XRAY CHEST 1 VIEW 2021-12-14 14:06:00 ByronRamonajerome Henley ealt 12 LEAD EKG 2021-12-14 14:05:19 Byron Compayoseftaniya Fuentes lth GLUCOSE POC 2021-12-14 14:00:00 Elida Peter th PT/INR/PTT 2021-12-14 13:44:00 Tera Qujiano h [place] PRO 2021-12-14 13:44:00 Tera Quijano alth COAG STUDIES INTERP 2021-12-14 13:44:00 Tera Quijano ealt REPORT (BKR) CONSULT CLINICAL CASE 2021-12-14 12:14:27 Seun [facility] MANAGEMENT (RN/SW) Malissa P CBC/DIFF 2021-12-14 09:43:00 Ruthy Matthewsa lth CBC 2021-12-14 09:43:00 Ruthy Matthews [facility] lt DIFFERENTIAL, MANUAL-[facility] 2021-12-14 09:43:00 Ruthy Matthews [facility] LITHIUM 2021-12-14 08:35:00 Ruthy Matthewsa lth LIVER PROFILE 2021-12-14 04:28:00 Talha Kohli h [place] P BASIC METABOLIC PANEL 2021-12-14 04:28:00 Seun [facility] [place] P CBC/DIFF 2021-12-14 04:28:00 Talha Kohli h [place] P CBC 2021-12-14 04:28:00 Talha Kohlimaine P RBC MORPHOLOGY-[facility] 2021-12-14 04:28:00 Seun [facility] alth Malissa P LITHIUM 2021-12-13 21:15:00 Talha Kohli [place] P COMMODE AT BEDSIDE 2021-12-13 08:17:33 Elida Peter H ealth LIVER PROFILE 2021-12-13 04:53:00 Mutucumarana, [facility] [place] P BASIC METABOLIC PANEL 2021-12-13 04:53:00 Mutucumarana, [facility] Malissa P CBC/DIFF 2021-12-13 04:53:00 Mutucumarana, [facility] [place] P CBC 2021-12-13 04:53:00 Mutucumarana, [facility] [place]issa P LIVER PROFILE 2021-12-12 04:26:00 Mutucumarana, [facility] [place] P SEQUENTIAL COMPRESSION 2021-12-12 00:42:25 Elida Peter [facility] CBC/DIFF 2021-12-11 04:51:00 Mutucumarana, [facility] [place] P BASIC METABOLIC PANEL 2021-12-11 04:51:00 Mutucumarana, [facility] Malissa P LIVER PROFILE 2021-12-11 04:51:00 [facility] CBC 2021-12-11 04:51:00 Mutucumarana, [facility] [place] P RETIC COUNT 2021-12-11 04:51:00 Tera Quijano [facility] U/S ABDOMEN LIMITED 2021-12-10 08:50:00 Ruthy Matthews [facility] CBC/DIFF 2021-12-10 05:32:00 Mutucumarana, [facility] [place] P BASIC METABOLIC PANEL 2021-12-10 05:32:00 Mutucumarana, [facility] Malissa P LIVER PROFILE 2021-12-10 05:32:00 [facility]ana, [facility] [place] [facility] CBC 2021-12-10 05:32:00 [facility], [facility] [facility] FEMUR W CONTRAST 2021-12-09 16:25:48 Ruthy Matthews [facility] CBC/DIFF 2021-12-09 04:35:00 Mutucumarana, [facility] [place] P BASIC METABOLIC PANEL 2021-12-09 04:35:00 Mutucumarana, [facility] Malissa P LIVER PROFILE 2021-12-09 04:35:00 [facility]ucumarana, [facility] [place] [facility] CBC 2021-12-09 04:35:00 Mutucumarwillie, [facility] Malissa P VIT D, 25-HYDROXY 2021-12-09 04:35:00 Byron Comp[facility]mer [facility] COM[facility] AT [facility]ED[facility]IDE 2021-12-08 21:45:09 Elida Peter [facility] CBC/DIFF 2021-12-08 05:03:00 Mutucumarana, [facility] h Malissa P BASIC METABOLIC PANEL 2021-12-08 05:03:00 Mutucumarana, [facility] Malissa P LIVER PROFILE 2021-12-08 05:03:00 Mutucumarana, [facility] [place] [facility] CBC 2021-12-08 05:03:00 Mutucumarana, [facility] [place] P INFUSION PUMP 2021-12-07 18:01:36 Elida Peter [facility] CBC/DIFF 2021-12-07 05:21:00 ByronCompayoseftaniya [facility] BASIC METABOLIC PANEL 2021-12-07 05:21:[address] [facility] LIVER PROFILE 2021-12-07 05:21:00 Elida Peter [facility] LACTATE DEHYDROGENASE 2021-12-07 05:21:00 Elida Peter [facility] HAPTOGLOBIN 2021-12-07 05:21:00 Elida Peter [facility] AMMONIA 2021-12-07 05:21:00 Elida Peter [facility] CBC 2021-12-07 05:21:00 Compa Matthewsyoseftaniya [facility] PT/INR/PTT 2021-12-06 05:02:00 Compa Matthewsyoseftaniya [facility] CT ABDOMEN AND PELVIS 2021-12-05 16:10:17 Compa [address] [facility] CONTRAST CT CHEST W CONTRAST 2021-12-05 16:10:17 Michael Giraldo [facility] PATHOLOGIST REVIEW 2021-12-05 04:08:00 Tera Quijano [facility] SAVE SMEAR/ NOT FOR PATH 2021-12-05 04:08:00 Tera Quijano [facility] Health REVIEW LEAD, WHOLE BLOOD (ADULT) 2021-12-04 11:14:00 Compa Matthewsyoseftaniya [facility] DIRECT ANTIGLOBULIN TEST 2021-12-04 10:15:00 Seun [facility] BETZY/ DIRECT MARINA Malissa Martin HIV AG/AB COMBO ROUTINE 2021-12-04 10:15:[address] [facility] SCREENING Malissa P HEPATITIS PANEL 2021-12-04 10:15:00 Seun [place] [facility] HEMOGLOBIN A1C 2021-12-04 04:06:00 Talha Kohli P LACTATE DEHYDROGENASE 2021-12-04 04:06:00 Seun [facility] ([facility]) Malissa Martin CBC/DIFF 2021-12-04 04:06:00 Ruthy Matthews [facility] BASIC METABOLIC PANEL 2021-12-04 04:06:[address] [facility] CBC 2021-12-04 04:06:00 [facility] 2021-12-04 04:06:00 Talha Kohli P SAVE SMEAR/ NOT FOR PATH 2021-12-04 04:06:00 Seun [facility] REVIEW Malissa P FREE T4 2021-12-04 04:06:00 Ruthy Matthews [facility] URINALYSIS W/REFLEX TO 2021-12-03 16:54:00 Seun [facility] URINE CULTURE Mal[place] P URINALYSIS 2021-12-03 16:54:00 Talha Kohli P URINE CULTURE COLLECTION 2021-12-03 16:54:00 Seun [facility] KIT [place] P NUTRITION CONSULT 2021-12-03 07:40:36 Talha Kohli [facility] ASSESSMENT Malissa P IRON PROFILE 2021-12-03 04:44:00 Talha Kohliine P CBC/DIFF 2021-12-03 04:44:00 Mutucumarwillie, [facility] [place] P CBC 2021-12-03 04:44:00 Mutucumarwillie, [facility] Mal[place] P THYROID STIMULATING 2021-12-03 04:44:00 Paulaumarwillie, [facility] ealth HORMONE (TSH) Malissa P VITAMIN B12 2021-12-03 04:44:00 Mutucumarana, [facility] [place] P FOLIC ACID 2021-12-03 04:44:00 Mutucumarana, [facility] Malissa P FREE T4 2021-12-03 04:44:00 Mutucumarana, [facility] Malissa P HAPTOGLOBIN 2021-12-03 04:44:00 Mutucumarana, [facility] Malissa P SAVE SMEAR/ NOT FOR PATH 2021-12-03 04:44:00 Mutucumarwillie, [facility] REVIEW Malissa P SEQUENTIAL COMPRESSION 2021-12-03 03:19:55 Seun [facility] PUMP Mal[place] P SARS-COV-2, FLU A/B, RSV 2021-12-03 01:06:00 [facility] CORONAVIRUS, COVID-19, 2021-12-03 01:06:00 Judith Perla [facility] YOSHI CREATININE POC 2021-12-02 20:31:00 Talha Gutierrez BMP POC 2021-12-02 20:31:00 Talha Gutierrez CBC/DIFF 2021-12-02 20:17:00 Marino Crooks [facility] CBC 2021-12-02 20:17:00 Marino Crooks [facility] LITHIUM 2021-12-02 20:17:00 Moe Sim [facility] COMPREHENSIVE METABOLIC 2021-12-02 20:17:[address] [facility] PANEL Malissa P FERRITIN 2021-12-02 20:17:00 Talha Kohli [place] [facility] CT HEAD W/O CONTRAST 2021-12-02 18:26:07 Judith Perla [facility] CT ABDOMEN/PELVIS WITH IV 2021-07-30 20:25:00 Brii Campbell [facility] CBC W/PLT COUNT & AUTO 2021-07-30 19:37:00 Brii Campbell [facility] BASIC METABOLIC PANEL (7) 2021-07-30 19:37:00 Brii Campbell [facility] PROTHROMBIN TIME/INR 2021-07-30 19:37:00 Brii Campbell [facility] CBC W/PLT COUNT & AUTO 2021-07-30 19:37:00 Brii Campbell [facility] Plan of Care Planned Activity Planned Date Details Comments Source Future Scheduled 2025-07-17 DTAP/TDAP/TD [facility] 00:[facility]00 VACCINES (2 [...] (#1)] Future Scheduled 2022-03-[address] [facility] Test 00:00:00 (#1) [code = Medical Center INFLUENZA VACCINE (#1)] Future Scheduled 2022-03-03 INFLUENZA VACCINE Method [facility] Test 12:27:23 [code = INFLUENZA VACCINE] Future Scheduled 2022-03-03 HEPATITIS B VACCINES Met [facility] Test 12:27:23 (1 of 3 - 3-dose series) [code = HEPATITIS B VACCINES (1 of 3 - 3-dose series)] Future [facility] 2022-03-03 [facility] (#1[facility] [code = COVID-19 VACCINE (#1)] Future Scheduled 2022-03-03 INFLUENZA VACCINE Method [facility] Test 12:27:23 [code = INFLUENZA VACCINE] Future Scheduled 2022-03-03 HEPATITIS B VACCINES Met [facility] Test 12:27:23 (1 of 3 - 3-dose series) [code = HEPATITIS B VACCINES (1 of 3 - 3-dose series)] Future Scheduled 2022-03-03 HEPATITIS B VACCINES Met [facility] Test 12:27:23 (1 of 3 - 3-dose series) [code = HEPATITIS B VACCINES (1 of 3 - 3-dose series)] Future Scheduled 2022-03-03 [facility]23 (#1) [code = COVID-19 VACCINE (#1)] Future Scheduled 2022-03-03 INFLUENZA VACCINE Method [facility] Test 12:27:23 [code = INFLUENZA VACCINE] Future Scheduled 2022-03-03 [facility] 12:27[facility]23 (#1) [code = COVID-19 VACCINE (#1)] Future Scheduled 2022-03-03 INFLUENZA VACCINE Method [facility] Test 12:27:23 [code = INFLUENZA VACCINE] Future Scheduled 2022-03-03 HEPATITIS B VACCINES Met [facility] Test 12:27:23 (1 of 3 - 3-dose series) [code = HEPATITIS B VACCINES (1 of 3 - 3-dose series)] Future Scheduled 2022-03-03 [facility] 12:27:23 (#1) [code = COVID-19 VACCINE (#1)] Future Scheduled 2022-03-03 INFLUENZA VACCINE Method [facility] Test 12:27:23 [code = INFLUENZA VACCINE] Future Scheduled 2022-03-03 HEPATITIS B VACCINES Met [facility] Test 12:27:23 (1 of 3 - 3-dose series) [code = HEPATITIS B VACCINES (1 of 3 - 3-dose series)] Future Scheduled 2022-03-03 [facility] 12:27:23 (#1) [code = COVID-19 VACCINE (#1)] Future Scheduled 2022-02-19 [facility] 10:27:57 (#1) [code = COVID-19 VACCINE (#1)] Future Scheduled 2022-02-19 INFLUENZA VACCINE Method [facility] Test 10:27:57 [code = INFLUENZA VACCINE] Future Scheduled 2022-02-19 HEPATITIS B VACCINES Met [facility] Test 10:27:57 (1 of 3 - 3-dose series) [code = HEPATITIS B VACCINES (1 of 3 - 3-dose series)] Future Scheduled 2022-02-19 [facility] 10:27:57 (#1) [code = COVID-19 VACCINE (#1)] Future Scheduled 2022-02-19 INFLUENZA VACCINE Method [facility] Test 10:27:57 [code = INFLUENZA VACCINE] Future Scheduled 2022-02-19 HEPATITIS B VACCINES Met [facility] Test 10:27:57 (1 of 3 - 3-dose series) [code = HEPATITIS B VACCINES (1 of 3 - 3-dose series)] Future Scheduled 2022-02-19 [facility] 10:27:57 (#1) [code = COVID-19 VACCINE (#1)] Future Scheduled 2022-02-19 INFLUENZA VACCINE Method [facility] Test 10:27:57 [code = INFLUENZA VACCINE] Future Scheduled 2022-02-19 HEPATITIS B VACCINES Met [facility] Test 10:27:57 (1 of 3 - 3-dose series) [code = HEPATITIS B VACCINES (1 of 3 - 3-dose series)] Future Scheduled 2021-07-[address] [facility] 00:00:00 (12+) [code = [facility] DEPRESSION SCREENING (12+)] Future Scheduled 2021-07-04 [...] [facility] 00:[facility]:00 (12+) [code = [facility] DEPRESSION SCREENING (12+)] Future Scheduled 2019-11-[address] Test 00:00:00 (procedure) [code = [facility] [id number]] Future Scheduled 2019-11-[address] Test 00:00:00 (procedure) [code = [facility] [id number]] Future Scheduled 2019-11-[address] [facility] Test 00:00:00 (procedure) [code = Medical Center [id number]] Future Scheduled 2019-11-[address] [facility] Test 00:00:00 (procedure) [code = Medical Center [id number]] Future Scheduled 2019-11-[address] Test 00:00:00 (procedure) [code = [facility] [id number]] Future Scheduled 2019-11-[address] [facility] Test 00:00:00 (procedure) [code = [facility] [id number]] Future Scheduled 2019-11-[address] [facility] Test 00:00:00 (procedure) [code = [facility] Center [id number]] Future Scheduled 2019-11-[address] [facility] Test 00:00:00 (procedure) [code = Medical Center [id number]] Future Scheduled 2019-11-[address] [facility] Test 00:00:00 (procedure) [code = [facility] [id number]] Future Scheduled 2019-11-[address] [facility] Test 00:00:00 (procedure) [code = [facility] Center [id number]] Future Scheduled 2019-11-[address] [facility] Test 00:00:00 (procedure) [code = Medical Center [id number]] Future Scheduled 2019-11-[address] [facility] Test 00:00:00 (procedure) [code = Medical Center [id number]] Future Scheduled 2019-11-[address] [facility] Test 00:00:00 (procedure) [code = Medical Center [id number]] Future Scheduled 2019-11-[address] [facility] Test 00:00:00 (procedure) [code = Medical Center [id number]] Future Scheduled 2019-11-[address] Test 00:00:00 (procedure) [code = [facility] [id number]] Future Scheduled 2019-11-[address] [facility] Test 00:00:00 (procedure) [code = [facility] [id number]] Future Scheduled 2011-01-[address] [...] VACCINE (#1)] Future Scheduled 1985-05-17 COVID-19 Vaccine [facility] Test 00:00:00 (#1) [code = COVID-19 Vaccine [...] Vaccine (#1)] Future Scheduled 1984 Fluoride Varnish [facility] Test 00:00:00 [code = Fluoride Varnish] Future Scheduled 1984 Fluoride Varnish [facility] Test 00:00:00 [code = Fluoride Varnish] Future Scheduled 1984 Fluoride Varnish [facility] Test 00:00:00 [code = Fluoride Varnish] Future Scheduled 1984 Fluoride Varnish [facility] Test 00:00:00 [code = Fluoride Varnish] Future Scheduled 1984 Fluoride Varnish [facility] Test 00:00:00 [code = Fluoride Varnish] Future Scheduled 1984 Fluoride Varnish [facility] Test 00:00:00 [code = Fluoride Varnish] Future Scheduled 1984 Fluoride Varnish [facility] Test 00:00:00 [code = Fluoride Varnish] Future Scheduled 1984 Fluoride Varnish [facility] Test 00:00:00 [code = Fluoride Varnish] Encounters Start End Encounter Admission Attending Care Care Encounter Source Date/Time Date/Time Type Type Clinicians Facility Department ID 2022-02-08 Outpatient [facility] [id number] [place] 12:[place]:[id number] [facility] 2022-01-25 Outpatient [facility] [id number] [place] 13:[place]:[id number] [facility] 2022-01-15 Outpatient DIAMOND, MHFB MHFB [id number] FB 09:20:35 WANDA 2022-05-03 2022-05-03 [facility] [id number] [place] 00:00:00 00:00:00 [facility] 2022-04-05 2022-04-05 Outpatient [facility] [id number] [place] 00:00:00 00:00:00 [facility] 2022-03-25 2022-03-25 Outpatient [facility] PRIV PRIV [id number] [facility] 00:00:00 00:00:00 d_J [id number] Medica l 2022-03-23 2022-03-23 Outpatient [facility]Tod PRIV PRIV [id number] [facility] 00:00:00 00:00:00 d_J [id number] Medica l 2022-03-23 2022-03-23 Mariela [facility] [id number] [facility] 00:00:00 00:00:00 JEANIE Linares: Health - Med ical [address] [address] , Ph. 2022-03-22 2022-03-22 Damir Umana [facility] 202 [id number] [facility] 00:00:00 00:00:00 Lizbeth Health - Med ical : [address] [address] , Ph. 2022-03-16 2022-03-16 Mariela [facility] [id number] [facility] 00:00:00 00:00:00 JEANIE Linares: Health - Med ical [address] [address] , Ph. 2022-03-12 2022-03-12 Outpatient [facility]Tod PRIV PRIV [id number] [facility] 00:00:00 00:00:00 d_J [id number] Medica l 2022-03-05 2022-03-05 Outpatient ANJANA Linares PRIV [id number] [id number] 00:00:00 00:00:00 Mariela [id number] 2022-03-05 2022-03-05 Mariela [facility] [id number] [facility] 00:00:00 00:00:00 Vijay PA: Health - Med ical [address] [address] , Ph. 2022-03-02 2022-03-02 Outpatient ANJANA Linares PRIV [id number] 00:00:00 00:00:00 Mariela [id number] 2022-03-02 2022-03-02 Mariela [facility] [id number] [facility] 00:00:00 00:00:00 Vijay PA: Health - Med ical [address] [address] , Ph. 2022-02-28 2022-02-28 Outpatient [facility]Tod PRIV PRIV [id number] [facility] 00:00:00 00:00:00 d_J [id number] Medica l 2022-02-25 2022-02-25 Outpatient Lizbeth, ANJANA YEUNG [id number] 00:00:00 00:00:00 Damir Umana [id number] 2022-02-25 2022-02-25 Damir Umana [facility] 202 [id number] [facility] 00:00:00 00:00:[address] [facility] - Med ical MD: [address] [address] , Ph. 2022-02-23 2022-02-23 Outpatient ANJANA Linares PRIV [id number] [id number] 00:00:00 00:00:00 Mariela [id number] 2022-02-23 2022-02-23 Mariela [facility] [id number] [facility] 00:00:00 00:00:00 JEANIE Linares: Health - Med ical [address] [address] , Ph. 2022-02-19 2022-02-19 Outpatient [facility]_Tod PRIV PRIV [id number] [facility] 00:00:00 00:00:00 d_J [id number] Medica l 2022-02-19 2022-02-19 Mariela [facility] [id number] [facility] 00:00:00 00:00:00 JEANIE Linares: Health - Med ical [address] [address] , Ph. 2022-02-19 2022-02-19 Outpatient ANJANA Linares PRIV [id number] 00:00:00 00:00:00 Mariela [id number] 2022-02-18 2022-02-18 Outpatient [facility]Tod PRIV PRIV [id number] [facility] 00:00:00 00:00:00 d_J [id number] Medica l 2022-01-26 2022-02-16 Outpatient José [facility] [id number] 14:02:00 21:42:00 Ritubaldo 07 2022-01-26 2022-02-16 Inpatient U JOSÉ [facility] [id number] Memoria 14:02:00 21:42:00 ISIDORO del [facility]ario [facility] 2022-02-02 2022-02-02 Outpatient SARAI [facility] [id number] [place] 00:00[facility]00 [facility]22-01-26 Inpatient E DARIO [facility] [id number] BL 10:31:00 12:59:00 ARVIND 2022-01-16 2022-01-26 Outpatient Sajja, MHPL MHPL [id number] 07:55:41 12:59:00 Arvind 2022-01-16 2022-01-26 Outpatient Sajja, MHPL MHPL [id number] 07:55:41 12:59:00 Arvind 2022-01-16 2022-01-16 Outpatient Silvia, MHPL PL [id number] 07:55:41 07:55:41 Chris 07 Lorna 2022-01-12 2022-01-12 Emergency ER AI, [facility] [facility] Emergency [id number] [facility]SL 16:19:00 17:42:00 [facility] 2022-01-12 2022-01-12 Emergency [place], [facility] [id number] [facility] [address] 16:19:00 17:42:00 [facility] 2022-01-12 2022-01-12 Emergency ER Ai, [facility] [id number] [facility] 16:19:00 17:42:00 [facility] 2022-01-12 2022-01-12 Travel [facility] [id number] [facility] 00:00:00 00:00:00 [facility] 2022-01-12 2022-01-12 Travel [facility] [id number] [facility] 00:[facility]00 00:00:00 [facility] 2022-01-08 2022-01-08 Emergency [facility]ain Deg[facility] LA00 [id number] [facility] 12:40:00 18:44:00 95 [facility] 2022-01-08 2022-01-08 Emergency Zain [facility] LA61 [facility] 12:40:00 18:44:00 25375 [facility] 2022-01-07 2022-01-07 Orders Betty [facility] [id number] [place] 00:00:00 00:00:00 Only [facility] 2022-01-07 2022-01-07 Orders Betty [facility] [id number] [place] 00:00:00 00:00:[address] [facility] 2021-12-23 2021-12-23 [facility] [id number] [place] 12:11:26 12:16:[address] [facility] 2021-12-23 2021-12-23 [facility] [id number] [place] 11:00:00 12:16:02 Visit Annie Abreu 2021-12-23 2021-12-23 [facility] [id number] [place] 11:00:00 12:16:02 Visit Annie Henley [facility] 2021-12-23 2021-12-23 [facility] [id number] [place] 00:00:00 00:00:00 [facility] 2021-12-23 2021-12-23 [facility] [id number] [place] 00:00:00 00:00:00 Only Annie Abreu 2021-12-23 2021-12-23 [facility] [id number] [place] 00:00:00 00:00:00 Only Annie Henley [facility] 2021-12-02 2021-12-16 Emergency Kym Gutierrez [facility] [id number] [place] 16:49:00 11:54:00 Marla Bai Joslyn W Mutucumarana, Charmaine P 2021-12-02 2021-12-16 Emergency Kym Gutierrez [facility] [id number] [place] 16:49:00 11:54:00 Marla Bai Joslyn W Mutucumarana, Charmaine P 2021-12-15 2021-12-15 Outpatient [facility] [id number] [place] 11:10:10 11:58:48 Health 2021-12-14 2021-12-14 Outpatient [facility] [id number] [place] 15:58:03 15:58:08 Health 2021-12-14 2021-12-14 Outpatient [facility] [id number] [place] 13:56:45 14:11:44 [facility] 2021-12-10 2021-12-10 Outpatient [facility] [id number] [place] 08:04:54 09:52:59 [facility] 2021-12-09 2021-12-09 Outpatient [facility] [id number] [place] 14:31:10 16:27:35 [facility] 2021-12-05 2021-12-05 Outpatient [facility] [id number] [place] 15:47:31 16:10:42 [facility] 2021-12-05 2021-12-05 Outpatient PETER, [facility] [id number] [place] 00:00:00 00:00:00 [facility] 2021-12-02 2021-12-02 Emergency LION [facility] [id number] [place] 17:25:24 18:26:13 [facility] 2021-12-02 2021-12-02 Outpatient 1 SARAH, [facility] [id number] [place] 16:49:00 16:49:00 [facility] 2021-12-01 2021-12-01 Outpatient Jalal, MHSL MHSL [id number] 06:20:00 12:40:[address] 2021-12-01 2021-12-01 Outpatient JALAL, MHFB MHFB [id number] MHFB 06:20:00 12:40:00 [facility] 2021-12-01 2021-12-01 Outpatient Jalal, MHSL MHSL [id number] 08:00:00 08:00:[address] 2021-11-25 2021-11-25 Emergency ER ODAVIDAKU, SLSL Emergency [id number] [facility]SL 16:20:00 16:55:00 [facility] 2021-11-25 2021-11-25 Emergency [place], [facility] [id number] 16:20:00 16:55:00 [facility] 2021-11-25 2021-11-25 Emergency [place], [facility] [id number] 16:20:00 16:55:00 [facility] 2021-07-31 2021-07-31 Travel [facility] [id number] [facility] 00:00:00 00:00:00 [facility] 2021-07-31 2021-07-31 Travel [facility] [id number] [facility] 00:00:00 00:00:00 [facility] 2021-07-30 2021-07-30 Emergency ER STONE, BRII [facility] Emergency 20 [id number] [facility] 19:14:00 21:58:00 2021-07-30 2021-07-30 Emergency ER Stone, Brii [facility] [id number] 19:14:00 21:58:00 [facility] 2021-07-30 2021-07-30 Emergency Stone, Brii [facility] [id number] 19:14:00 21:58:00 [facility] 2018-07-01 2018-07-01 Outpatient Jitendra, MHPL MHPL [id number] 18:27:00 22:12:00 Jazmin 01 Rachealinessa 2018-06-27 2018-06-29 Outpatient Hammonds, PL PL [id number] 20:48:00 19:05:00 Ugochi 04 Kianna 2017-12-30 2017-12-30 Outpatient Zohaib, Rony PL PL [id number] 10:30:00 12:31:00 U 03 2016-10-04 2016-10-08 Outpatient Carrie, PL PL [id number] 575 13:28:00 15:10:00 Annette 02 Yasmin 2016-04-17 2016-04-17 Outpatient Savita, MHPL PL [id number] 10:11:00 13:54:00 Ambica 2015-07-17 2015-07-18 Outpatient Vijay Combs 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 [employer] Supervisor ID - [id number] ID - [id number] ID - [id number] ID - QZXVO786Ukgtvmfl ID - NRATY250Ukuhwwde ID - AASTX392Fusqwjec ID - EVOBU487Utbgszwj ID - FJDDL236Gxrcrvbh ID - XGKYV194Oxkerrzy ID - TOTVS206Yuuwabdn ID - XJZDV768Lpiqrkyr ID - LBJNE586Bocgxkzg ID - XIYLA282Zswokwdv ID - VZUTJ803Oupephqx ID - JGLJW915Hdnpsxmb ID - KPGLO594Skldkuml ID - LHOOG432Sqiagsvt ID - EXVQE812Apiebkiy ID - [id number] W/PLT COUNT & AUTO [id number] 16:49:25 Test Item Value Reference Range Interpretation [...] code = 2801) - CTA CHEST FOR [id number] 18:27:00 [facility] 1985 Sex: M Name: VERÓNICA NUNN [facility] : 1985 Age/S: 36 / M [address] Unit #: [id number] Loc: [place] [address] Phys: Zain David DO Acct: [id number] Dis Date: Status: REG ER PHONE #: [phone] Exam Date: 01/08/2022 1803 FAX #: Reason: evaluate for PE EXAMS: CPT: [id number] CTA CHEST FOR [id number] EXAM: - CTA CHEST FOR PE LOCATION: H57 HISTORY: 36 years-year old Male with evaluate for PE TECHNIQUE: Axial tomograms through the chest were obtained after intravenous contrast utilizing pulmonary embolus protocol. Coronal and sagittal reformatted images are provided. At least one MIP sequence was provided. This exam was performed according to our departmental dose-optimization program, which i ncludes automated exposure control, adjustment of the mA [...] NUNN : 1985 Age/S: 36 / M [address] Unit #: [id number] Loc: [place] Yf91490 Phys: Zain David DO Acct: [id number] Dis Date: Status: REG ER PHONE #: [phone] Exam Date: 01/08/2022 1803 FAX #: Reason: evaluate for PE EXAMS: CPT: [id number] CTA CHEST FOR PE 10375 (Continued) at 1827 Reported and signed by: Ba Anaya M.D. CC: Zain David DO Technologist:Abram Prasad, (R) CTDI: DLP: Trnscb Date/Time: 01/08/2022 (182) [email or web address] Orig Print D/T: S: 01/08/2022 (1830) PAGE 2 Signed Report- DUP VEIN [id number] 16:52:00 [facility] 1985 Sex: M Name: VERÓNICA NUNN [place] : 1985 Age/S: 36 / M [address] Unit #: [id number] Loc: [place] [address] Phys: Zain David DO Acct: [id number] Dis Date: Status: REG ER PHONE #: [phone] Exam Date: 01/08/20221647 FAX #: Reason: swelling EXAMS: CPT: [id number] DUP VEIN COMFORT 46523 EXAM: - DUP VEIN COMFORT LOCATION: H65 [...] PAGE 1 Signed Report Name: VERÓNICA NUNN [place] : 1985 Age/S: 36 / M [id number] [place] [address] Unit #: [id number] Loc: [place] [address] Phys: Zain David DO Acct: [id number] Dis Date: Status: REG ER PHONE #: [phone] Exam Date: 01/08/2022 164 FAX #: Reason: swelling EXAMS: CPT: [id number] DUP VEIN COMFORT 94327 (Continued) Orig PrintD/T: S: 01/08/2022 (1654) Probe: PAGE 2 Signed ReportTROP-I HIGH [id number] 15:07:00 Test Item Value Reference Range Interpretation [...] varyby method. Completed by Nursing: NOBASIC METABOLIC [id number] 15:07:00 Test Item Value Reference Range Interpretation [...] N Completed by Nursing: NONT PRO-BRAIN NATRIURETIC [id number] 15:07:00 Test Item Value Reference Range Interpretation Comments NT PRO-BRAIN NATRIURETIC PEPTI 163 PG/ML 0-100 H (test code = PROBNP) Completed by Nursing: [id number]-[id number] 15:04:00 Test Item Value Reference Range Interpretation [...] STS AND APPROPRIATECLIN ICAL EUALUATIONS. HEPATIC FUNCTION [id number] 14:58:00 Test Item Value Reference Range Interpretation [...] 50-136 N code = ALKP) CBC W/O [id number] 14:41:00 Test Item Value Reference Range Interpretation [...] 7.0-9.6 H MPV) - XR CHEST 1 [id number] 14:24:00 [facility] 1985 Sex: M Name: VERÓNICA NUNN [facility] : 1985 Age/S: 36 / M [address] Unit #: [id number] Loc: [place] [address] Phys: Zain David DO Acct: [id number] Dis Date: Status: REG ER PHONE #: [phone] Exam Date: 01/08/2022 1418 FAX #: Reason: chest pain EXAMS: CPT: [id number] XR CHEST 1 V 26338 Fluoro Time: DAP (Gy m2): Air Kerma (mGy): Site ID: [id number] HISTORY: Chest pain COMPARISON: None FINDINGS: Patchy bibasilar infiltrates may reflect pneumonia or atelectasis. The heart and pulmonary vasculatureis normal. Osseous structures are unremarkable. IMPRESSION: Patchy bibasilar infiltrates may reflectpneumonia or atelectasis at 4405 Reported and signed by: Raymundo Delacruz M.D. CC: Zain David DO PAGE 1 Signed Report Name: VERÓNICA NUNN [facility] : 1985 Age/S: 36 / M [address] Unit #: [id number] Loc: [place] [address] Phys: Zain David DO Acct: [id number] Dis Date: Status: REG ER PHONE #: [phone] Exam Date: 01/08/2022 1418 FAX #: Reason: chest pain EXAMS: CPT: [id number] XR CHEST 1 V 04500 Fluoro Time: DAP (Gy m2): Air Kerma (mGy): (Continued) Technologist: Vladislav Moreno, RT(R)(CT) Trnscb Date/Time: 01/08/2022 (1423) [email or web address] Orig Print D/T: S: 01/08/2022 (3) PAGE 2 Signed [facility]ed [id number] 10:55:52 Test Item Value Reference Range Interpretation Comments Glucose POC (test code = 58452846) 79 mg/dL 74-106 Lab Interpretation (test code = Normal 75524-7) [facility] [id number] 10:55:52 Test Item Value Reference Range Interpretation Comments Glucose POC (test code = 12928251) 79 mg/dL 74-106 Lab Interpretation (test code = Normal 56150-4) [facility] [id number] 10:55:52 Test Item Value Reference Range Interpretation Comments Glucose POC (test code = 95823620) 79 mg/dL 74-106 Lab Interpretation (test code = Normal 97867-9) [facility]SE [facility] docked [id number] 10:55:52 Test Item Value Reference Range Interpretation Comments Glucose POC (test code = 16108153) 79 mg/dL 74-106 Lab Interpretation (test code = Normal 11578-9) [facility] docked [id number] 10:55:52 Test Item Value Reference Range Interpretation Comments Glucose POC (test code = 27885455) 79 mg/dL 74-106 Lab Interpretation (test code = Normal 21545-9) [facility]SE [facility] docked [id number] 10:55:52 Test Item Value Reference Range Interpretation Comments Glucose POC (test code = 00289754) 79 mg/dL 74-106 Lab Interpretation (test code = Normal 48157-4) [facility] docked [id number] 10:55:52 Test Item Value Reference Range Interpretation Comments Glucose POC (test code = 64952902) 79 mg/dL 74-106 Lab Interpretation (test code = Normal 69476-1) [facility] GLUCOSE POC docked [id number] 10:55:52 Test Item Value Reference Range Interpretation Comments Glucose POC (test code = 14444800) 79 mg/dL 74-106 Lab Interpretation (test code = Normal 86756-8) [place] [address] Lead [id number] 14:05:191 LEAD EKG FOR [facility] Test Date: 1016-60-80Ghu Name: VERÓNICA CLARK Department: 5CMSPatient ID: [id number] Room: Gender: M Systems Librarian: SHIOB: 1985 Requested By: MISAEL HUIZARrder Number: [id number] Reading MD: Rosa Santa MeasurementsIntervals [place] Rate: 90 P: 73PR: 142 QRS: 90QRSD: 104 T: 69QT: 345 QTc: [address] ELEVATION [0.05+ mV ST ELEVATION]Electronically Signed On 12-14-2021 14:05:45 CDT by Mensia TechnologiesgabPharmaxis12 Lead [id number] 14:05:191 LEAD EKG FOR [facility] Test Date: 8301-50-92Xvt Name: VERÓNICA CLARK Department: 5CMSPatient ID: [id number] Room: Gender: M Systems Librarian: ANNIEDOB: 1985 Requested By: MISAEL HUIZARrder Number: [id number] Reading MD: Rosa Santa MeasurementsIntervals [place] Rate: 90 P: 73PR: 142 QRS: 90QRSD: 104 T: 69QT: 345 QTc: 393 Interpret[address] Stat[address] ELEVATION [0.05+ mV ST ELEVATION]Electronically Signed On 12-14-2021 14:05:45 CDT by [employer] TechnologiesgabPharmaxis12 Lead [id number] 14:05:1912 LEAD EKG FOR [facility] Test Date: 6661-73-20Scd Name: VERÓNICA CLARK Department: 5CMSPatient ID: [id number] Room: Gender: M Systems Librarian: ANNIEDOB: 1985 Requested By: MISAEL Lacyer Number: [id number] Reading MD: Rosa Santa MeasurementsIntervals [place] Rate: 90 P: 73PR: 142 QRS: 90QRSD: 104 T: 69QT: 345 QTc: 393 [address] ELEVATION [0.05+ mV ST ELEVATION]Electronically Signed On 12-14-2021 14:05:45 CDT by QPID HealthBapt[facility] Health La GrangeComQi12 Lead [id number] 14:05:1912 LEAD EKG FOR [facility] Test Date: 4982-74-79Pvj Name: VERÓNICA CLARK Department: MSPatient ID: [id number] Room: Gender: M Systems Librarian: ANNIEDOB: 1985 Requested By: MISAEL Lacyer Number: [id number] Reading MD: Rosa Santa MeasurementsIntervals [place] Rate: 90 P: 73PR: 142 QRS: 90QRSD: 104 T: 69QT: 345 QTc: 393 [address] ELEVATION [0.05+ mV ST ELEVATION]Electronically Signed On 12-14-2021 14:05:45 CDT by QPID HealthTALON THERAPEUTICS12 Lead [id number] 14:05:1912 LEAD EKG FOR [facility] Test Date: 2435-58-62Dkn Name: VERÓNCIA CLARK Department: 5CMSPatient ID: [id number] Room: Gender: M Systems Librarian: ANNIEDOB: 1985 Requested By: MISAEL Lacyer Number: [id number] Reading MD: Rosa Santa MeasurementsIntervals [place] Rate: 90 P: 73PR: 142 QRS: 90QRSD: 104 T: 69QT: 345 QTc: 393 [address] ELEVATION [0.05+ mV ST ELEVATION]Electronically Signed On 12-14-2021 14:05:45 CDT by QPID [facility] GrangeComQi12 Lead [id number] 14:05:1912 LEAD EKG FOR [facility] Test Date: 7165-57-62Zqb Name: VERÓNICA CLARK Department: 5CMSPatient ID: [id number] Room: Gender: M Systems Librarian: SHIOB: 1985 Requested By: MISAEL HUIZARrder Number: [id number] Reading MD: Rosa Santa MeasurementsIntervals [place] Rate: 90 P: 73PR: 142 QRS: 90QRSD: 104 T: 69QT: 345 QTc: [address] ELEVATION [0.05+ mV ST ELEVATION]Electronically Signed On 12-14-2021 14:05:45 CDT by Rosa [facility] NortheastTalentory.com [place] [address] Lead [id number] 14:05:1912 LEAD EKG FOR [facility] Test Date: 7239-31-95Wje Name: VERÓNICA CLARK Department: MSPatient ID: [id number] Room: Gender: M Systems Librarian: ANNIEDOB: 1985 Requested By: MISAEL VELÁZQUEZ EOrder Number: [id number] Reading MD: Rosa Santa MeasurementsIntervals [place] Rate: 90 P: 73PR: 142 QRS: 90QRSD: 104 T: 69QT: 345 QTc: [address] ELEVATION [0.05+ mV ST ELEVATION]Electronically Signed On 12-14-2021 14:05:45 CDT by RosaBrooklyn Hospital CenterTalentory.com [place] [address] Lead [id number] 14:05:1912 LEAD EKG FOR [facility] Test Date: 7907-27-65Fvv Name: VERÓNICA CLARK Department: 5CMSPatient ID: [id number] Room: Gender: M Systems Librarian: ANNIEDOB: 1985 Requested By: MISAEL VELÁZQUEZ EOrder Number: [id number] Reading MD: Rosa Santa MeasurementsIntervals [place] Rate: 90 P: 73PR: 142 QRS: 90QRSD: 104 T: 69QT: 345 QTc: [address] ELEVATION [0.05+ mV ST ELEVATION]Electronically Signed On 12-14-2021 14:05:45 CDT by Rosa BanuelosGood Shepherd Specialty Hospitalcristhian Holzer HospitalV 1+2 Ab+HIV1 p24 Ag SerPl Ql [id number] 11:54:50 Test Item Value Reference Range Interpretation Comments HIV 1+2 Ab+HIV1 p24 Ag SerPl Ql IA NEGATIVE Negative (test code = 36328-3) Coronavirus, CoVID-19, [id number] 02:25:42 Test Item Value Reference Interpretation Comments Range COVID-19 Not Detected Not Detected INTERPRETATION: (SARS-COV-2) (test No detect able code = 67196-3) levels of SARS-CoV-2 Coronavirus (COVID-19) were present [...] its performance characteristics were verified by the [facility] molecular diagnostics laboratory and is authorized for clinical diagnostic use. This laboratory is certified under the Clinical Laboratory Improvement Amendments (CLIA) as qualified to perform high complexity clinical laboratory testing. Lab Interpretation Normal (test code = 19898-1) [facility], CoVID-19, [id number] 02:25:42 Test Item Value Reference Interpretation Comments Range COVID-19 Not Detected Not Detected INTERPRETATION: (SARS-COV-2) (test No detect able code = 51458-8) levels of SARS-CoV-2 Coronavirus (COVID-19) were present [...] its performance characteristics were verified by the [facility] molecular diagnostics laboratory and is authorized for clinical diagnostic use. This laboratory is certified under the Clinical Laboratory Improvement Amendments (CLIA) as qualified to perform high complexity clinical laboratory testing. Lab Interpretation Normal (test code = 86538-9) [facility], CoVID-19, [id number] 02:25:42 Test Item Value Reference Interpretation Comments Range COVID-19 Not Detected Not Detected INTERPRETATION: (SARS-COV-2) (test No detect able code = 49314-5) levels of SARS-CoV-2 Coronavirus (COVID-19) were present [...] its performance characteristics were verified by the [facility] molecular diagnostics laboratory and is authorized for clinical diagnostic use. This laboratory is certified under the Clinical Laboratory Improvement Amendments (CLIA) as qualified to perform high complexity clinical laboratory testing. Lab Interpretation Normal (test code = 45674-6) Talha Ortegaavirus, CoVID-19, [id number] 02:25:42 Test Item Value Reference Interpretation Comments Range COVID-19 Not Detected Not Detected INTERPRETATION: (SARS-COV-2) (test No detect able code = 98175-9) levels of SARS-CoV-2 Coronavirus (COVID-19) were present [...] its performance characteristics were verified by the [facility] molecular diagnostics laboratory and is authorized for clinical diagnostic use. This laboratory is certified under the Clinical Laboratory Improvement Amendments (CLIA) as qualified to perform high complexity clinical laboratory testing. Lab Interpretation Normal (test code = 53762-8) Talha Ortegaavirus, CoVID-19, [id number] 02:25:42 Test Item Value Reference Interpretation Comments Range COVID-19 Not Detected Not Detected INTERPRETATION: (SARS-COV-2) (test No detect able code = 61695-0) levels of SARS-CoV-2 Coronavirus (COVID-19) were present [...] its performance characteristics were verified by the [facility] molecular diagnostics laboratory and is authorized for clinical diagnostic use. This laboratory is certified under the Clinical Laboratory Improvement Amendments (CLIA) as qualified to perform high complexity clinical laboratory testing. Lab Interpretation Normal (test code = 48598-2) [facility], CoVID-19, [id number] 02:25:42 Test Item Value Reference Interpretation Comments Range COVID-19 Not Detected Not Detected INTERPRETATION: (SARS-COV-2) (test No detect able code = 03610-5) levels of SARS-CoV-2 Coronavirus (COVID-19) were present [...] its performance characteristics were verified by the [facility] molecular diagnostics laboratory and is authorized for clinical diagnostic use. This laboratory is certified under the Clinical Laboratory Improvement Amendments (CLIA) as qualified to perform high complexity clinical laboratory testing. Lab Interpretation Normal (test code = 23494-8) Talha Ortegaavirus, CoVID-19, [id number] 02:25:42 Test Item Value Reference Interpretation Comments Range COVID-19 Not Detected Not Detected INTERPRETATION: (SARS-COV-2) (test No detect able code = 43667-4) levels of SARS-CoV-2 Coronavirus (COVID-19) were present [...] its performance characteristics were verified by the [facility] molecular diagnostics laboratory and is authorized for clinical diagnostic use. This laboratory is certified under the Clinical Laboratory Improvement Amendments (CLIA) as qualified to perform high complexity clinical laboratory testing. Lab Interpretation Normal (test code = 47443-1) Talha Ortegaavirus, CoVID-19, [id number] 02:25:42 Test Item Value Reference Interpretation Comments Range COVID-19 Not Detected Not Detected INTERPRETATION: (SARS-COV-2) (test No detect able code = 32256-2) levels of SARS-CoV-2 Coronavirus (COVID-19) were present [...] its performance characteristics were verified by the [facility] molecular diagnostics laboratory and is authorized for clinical diagnostic use. This laboratory is certified under the Clinical Laboratory Improvement Amendments (CLIA) as qualified to perform high complexity clinical laboratory testing. Lab Interpretation Normal (test code = 69285-7) [facility]-CoV-2 RNA Resp Ql YOSHI+[id number] 02:25:42 Test Item Value Reference Range Interpretation Comments Hospitalized? (test No code = 97047-6) ICU? (test code = No 69125-8) Symptomatic as defined No by CDC? (test code = 03199-1) Employed in No Healthcare? (test code = 51178-4) Resident in a No congregate care setting (including nursing homes, residential care for people with intellectual and developmental disabilities, psychiatric treatment facilities, group homes, board and care homes, homeless longterm, foster care or other): (test code = 01898-7) SARS-CoV-2 RNA Resp Ql NOT DETECTED Not Detected INTER PRETATION: No YOSHI+probe (test code = detec table levels 11215-3) of SARS-CoV-2 Coronavirus (COVID-19) were present in [...] its performance characteristics were verified by the [facility] molecular diagnostics laboratory and is authorized for clinical diagnostic use. This laboratory is certified under the Clinical Laboratory Improvement Amendments (CLIA) as qualified to perform high complexity clinical laboratory testing.POCT BMP POC docked device 2021-12-02 20:33:07 Test Item Value Reference Range Interpretation Comments Sodium POC (test code = 134 mmol/L 136-145 L 93999227) Potassium POC (test code 4.2 mmol/L 3.5-5.1 = 19920453) Chloride POC (test code 103 mmol/L 98-107 = 61244758) TCO2 POC (test code = 28 mmol/L 21-32 Physic alden Notified 42579541) Urea Nitrogen POC (test 12 mg/dL 7-18 code = 54077860) Glucose POC (test code = 76 mg/dL 74-106 48392821) Hemoglobin POC (test 7.1 g/dL 12-16 L code = 67207357) Hematocrit POC (test 21.0 % 37.0-47.0 L code = 93700935) Lab Interpretation (test Abnormal code = 90149-6) [facility] BMP POC docked [id number] 20:33:07 Test Item Value Reference Range Interpretation Comments Sodium POC (test code = 134 mmol/L 136-145 L 34057228) Potassium POC (test code 4.2 mmol/L 3.5-5.1 = 66345674) Chloride POC (test code 103 mmol/L 98-107 = 68216102) TCO2 POC (test code = 28 mmol/L 21-32 Physic alden Notified 83940424) Urea Nitrogen POC (test 12 mg/dL 7-18 code = 63764685) Glucose POC (test code = 76 mg/dL 74-106 76364697) Hemoglobin POC (test 7.1 g/dL 12-16 L code = 54011234) Hematocrit POC (test 21.0 % 37.0-47.0 L code = 14353677) Lab Interpretation (test Abnormal code = 49588-0) [facility] POC docked [id number] 20:33:07 Test Item Value Reference Range Interpretation Comments Sodium POC (test code = 134 mmol/L 136-145 L 97540584) Potassium POC (test code 4.2 mmol/L 3.5-5.1 = 93983954) Chloride POC (test code 103 mmol/L 98-107 = 69370389) TCO2 POC (test code = 28 mmol/L - Physic alden Notified 82041929) Urea Nitrogen POC (test 12 mg/dL 7-18 code = 90460595) Glucose POC (test code = 76 mg/dL 74-106 08023888) Hemoglobin POC (test 7.1 g/dL 12-16 L code = 44748070) Hematocrit POC (test 21.0 % 37.0-47.0 L code = 63611287) Lab Interpretation (test Abnormal code = 84326-4) [facility] POC docked [id number] 20:33:07 Test Item Value Reference Range Interpretation Comments Sodium POC (test code = 134 mmol/L 136-145 L 16026968) Potassium POC (test code 4.2 mmol/L 3.5-5.1 = 39091814) Chloride POC (test code 103 mmol/L 98-107 = 96737599) TCO2 POC (test code = 28 mmol/L 21-32 Physic alden Notified 41894989) Urea Nitrogen POC (test 12 mg/dL 7-18 code = 68092212) Glucose POC (test code = 76 mg/dL 74-106 89992460) Hemoglobin POC (test 7.1 g/dL 12-16 L code = 85105077) Hematocrit POC (test 21.0 % 37.0-47.0 L code = 87283921) Lab Interpretation (test Abnormal code = 14094-9) [facility] POC docked [id number] 20:33:07 Test Item Value Reference Range Interpretation Comments Sodium POC (test code = 134 mmol/L 136-145 L 98885654) Potassium POC (test code 4.2 mmol/L 3.5-5.1 = 61833413) Chloride POC (test code 103 mmol/L 98-107 = 03949522) TCO2 POC (test code = 28 mmol/L 21-32 Physic alden Notified 46424866) Urea Nitrogen POC (test 12 mg/dL 7-18 code = 13465024) Glucose POC (test code = 76 mg/dL 74-106 23451098) Hemoglobin POC (test 7.1 g/dL 12-16 L code = 96742654) Hematocrit POC (test 21.0 % 37.0-47.0 L code = 53902041) Lab Interpretation (test Abnormal code = 87325-4) [facility] POC docked [id number] 20:33:07 Test Item Value Reference Range Interpretation Comments Sodium POC (test code = 134 mmol/L 136-145 L 25789965) Potassium POC (test code 4.2 mmol/L 3.5-5.1 = 79726132) Chloride POC (test code 103 mmol/L 98-107 = 41213953) TCO2 POC (test code = 28 mmol/L -32 Physic alden Notified 23073766) Urea Nitrogen POC (test 12 mg/dL 7-18 code = 54879605) Glucose POC (test code = 76 mg/dL 74-106 72041512) Hemoglobin POC (test 7.1 g/dL 12-16 L code = 33239642) Hematocrit POC (test 21.0 % 37.0-47.0 L code = 71123932) Lab Interpretation (test Abnormal code = 68639-1) [facility] POC docked [id number] 20:33:07 Test Item Value Reference Range Interpretation Comments Sodium POC (test code = 134 mmol/L 136-145 L 51324342) Potassium POC (test code 4.2 mmol/L 3.5-5.1 = 42718948) Chloride POC (test code 103 mmol/L 98-107 = 98428516) TCO2 POC (test code = 28 mmol/L 21-32 Physic alden Notified 18410841) Urea Nitrogen POC (test 12 mg/dL 7-18 code = 50505511) Glucose POC (test code = 76 mg/dL 74-106 00744062) Hemoglobin POC (test 7.1 g/dL 12-16 L code = 48934994) Hematocrit POC (test 21.0 % 37.0-47.0 L code = 31466856) Lab Interpretation (test Abnormal code = 42628-4) [facility] BMP POC docked [id number] 20:33:07 Test Item Value Reference Range Interpretation Comments Sodium POC (test code = 134 mmol/L 136-145 L 42360248) Potassium POC (test code 4.2 mmol/L 3.5-5.1 = 11992831) Chloride POC (test code 103 mmol/L 98-107 = 55107588) TCO2 POC (test code = 28 mmol/L 21-32 Physic alden Notified 61863797) Urea Nitrogen POC (test 12 mg/dL 7-18 code = 93101885) Glucose POC (test code = 76 mg/dL 74-106 80659094) Hemoglobin POC (test 7.1 g/dL 12-16 L code = 68468980) Hematocrit POC (test 21.0 % 37.0-47.0 L code = 21164861) Lab Interpretation (test Abnormal code = 75313-3) [facility] CREATININE POC docked [id number] 20:32:51 Test Item Value Reference Range Interpretation Comments Creatinine POC (test 0.5 mg/dL 0.6-1.3 L Physici an Notified code = 47225415) eGFR If non- Am >120 See_Comment [Aut omated message] (test code = 19422166) The s ystem which generated this result transmit gregory reference range : >=90 mL/min/1.7 3 m2. The reference r sravanthi was not used to interpret this result as normal/abnormal . eGFR If Am (test >120 See_Comment [A utomated message] code = 37332969) The system which generated this result transmit gregory reference range : >=90 mL/min/1.7 3 m2. The reference r sravanthi was not used to interpret this result as normal/abnormal . Lab Interpretation (test Abnormal code = 63054-6) [facility] [id number] 20:32:51 Test Item Value Reference Range Interpretation Comments Creatinine POC (test 0.5 mg/dL 0.6-1.3 L Physici an Notified code = 27245453) eGFR If non- Am >120 See_Comment [Aut omated message] (test code = 89975163) The s ystem which generated this result transmit gregory reference range : >=90 mL/min/1.7 3 m2. The reference r sravanthi was not used to interpret this result as normal/abnormal . eGFR If Am (test >120 See_Comment [A utomated message] code = 71037468) The system which generated this result transmit gregory reference range : >=90 mL/min/1.7 3 m2. The reference r sravanthi was not used to interpret this result as normal/abnormal . Lab Interpretation (test Abnormal code = 70284-4) [facility] POC docked [id number] 20:32:51 Test Item Value Reference Range Interpretation Comments Creatinine POC (test 0.5 mg/dL 0.6-1.3 L Physici an Notified code = 14519513) eGFR If non- Am >120 See_Comment [Aut omated message] (test code = 71382798) The s ystem which generated this result transmit gregory reference range : >=90 mL/min/1.7 3 m2. The reference r sravanthi was not used to interpret this result as normal/abnormal . eGFR If Am (test >120 See_Comment [A utomated message] code = 94471200) The system which generated this result transmit gregory reference range : >=90 mL/min/1.7 3 m2. The reference r sravanthi was not used to interpret this result as normal/abnormal . Lab Interpretation (test Abnormal code = 92485-6) [facility] [id number] 20:32:51 Test Item Value Reference Range Interpretation Comments Creatinine POC (test 0.5 mg/dL 0.6-1.3 L Physici an Notified code = 26313521) eGFR If non- Am >120 See_Comment [Aut omated message] (test code = 83447965) The s ystem which generated this result transmit gregory reference range : >=90 mL/min/1.7 3 m2. The reference r sravanthi was not used to interpret this result as normal/abnormal . eGFR If Am (test >120 See_Comment [A utomated message] code = 24021994) The system which generated this result transmit gregory reference range : >=90 mL/min/1.7 3 m2. The reference r sravanthi was not used to interpret this result as normal/abnormal . Lab Interpretation (test Abnormal code = 65029-7) [facility] P[facility] docked [id number] 20:32:51 Test Item Value Reference Range Interpretation Comments Creatinine POC (test 0.5 mg/dL 0.6-1.3 L Physici an Notified code = 59075931) eGFR If non- Am >120 See_Comment [Aut omated message] (test code = 17018455) The s ystem which generated this result transmit gregory reference range : >=90 mL/min/1.7 3 m2. The reference r sravanthi was not used to interpret this result as normal/abnormal . eGFR If Am (test >120 See_Comment [A utomated message] code = 59528453) The system which generated this result transmit gregory reference range : >=90 mL/min/1.7 3 m2. The reference r sravanthi was not used to interpret this result as normal/abnormal . Lab Interpretation (test Abnormal code = 59906-7) [facility] P[facility] docked [id number] 20:32:51 Test Item Value Reference Range Interpretation Comments Creatinine POC (test 0.5 mg/dL 0.6-1.3 L Physici an Notified code = 67114587) eGFR If non- Am >120 See_Comment [Aut omated message] (test code = 55012813) The s ystem which generated this result transmit gregory reference range : >=90 mL/min/1.7 3 m2. The reference r sravanthi was not used to interpret this result as normal/abnormal . eGFR If Am (test >120 See_Comment [A utomated message] code = 17316439) The system which generated this result transmit gregory reference range : >=90 mL/min/1.7 3 m2. The reference r sravanthi was not used to interpret this result as normal/abnormal . Lab Interpretation (test Abnormal code = 90150-9) [facility] CREATININE POC docked [id number] 20:32:51 Test Item Value Reference Range Interpretation Comments Creatinine POC (test 0.5 mg/dL 0.6-1.3 L Physici an Notified code = 43601512) eGFR If non- Am >120 See_Comment [Aut omated message] (test code = 75452226) The s ystem which generated this result transmit gregory reference range : >=90 mL/min/1.7 3 m2. The reference r sravanthi was not used to interpret this result as normal/abnormal . eGFR If Am (test >120 See_Comment [A utomated message] code = 80686811) The system which generated this result transmit gregory reference range : >=90 mL/min/1.7 3 m2. The reference r sravanthi was not used to interpret this result as normal/abnormal . Lab Interpretation (test Abnormal code = 16222-6) [facility] CREATININE POC docked gmithe3217-82-07 20:32:51 Test Item Value Reference Range Interpretation Comments Creatinine POC (test 0.5 mg/dL 0.6-1.3 L Physici an Notified code = 90446169) eGFR If non- Am >120 See_Comment [Aut omated message] (test code = 10126405) The s ystem which generated this result transmit gregory reference range : >=90 mL/min/1.7 3 m2. The reference r sravanthi was not used to interpret this result as normal/abnormal . eGFR If Am (test >120 See_Comment [A utomated message] code = 42758676) The system which generated this result transmit gregory reference range : >=90 mL/min/1.7 3 m2. The reference r sravanthi was not used to interpret this result as normal/abnormal . Lab Interpretation (test Abnormal code = 80358-5) [facility]/[id number] 20:34:31 Test Item Value Reference Interpretation Comments [...] valves. Lab Interpretation Abnormal (test code = 16972-3) [id number] Test Item Value Reference Interpretation Comments [...] valves. Lab Interpretation Abnormal (test code = 10512-0) [id number] 20:34:31 Test Item Value Reference Interpretation Comments [...] valves. Lab Interpretation Abnormal (test code = 85858-6) [id number] 20:34:31 Test Item Value Reference Interpretation Comments [...] valves. Lab Interpretation Abnormal (test code = 48314-9) [facility][id number] 20:34:31 Test Item Value Reference Interpretation Comments [...] valves. Lab Interpretation Abnormal (test code = 72639-6) [id number] 20:34:31 Test Item Value Reference Interpretation Comments [...] valves. Lab Interpretation Abnormal (test code = 06107-7) [id number] 20:34:31 Test Item Value Reference Interpretation Comments [...] valves. Lab Interpretation Abnormal (test code = 96351-9) [facility][id number] 20:34:31 Test Item Value Reference Interpretation Comments [...] valves. Lab Interpretation Abnormal (test code = 38763-3) [facility][id number] 20:34:31 Test Item Value Reference Range Interpretation Comments PROTIME (BEAKER) 12.2 seconds 9.3-12.0 H Final Infor mation (test code = 759) (Auto Outp ut) INR (BEAKER) (test 1.11 See_Comment Final Inf ormation code = 370) (Auto Output) [Automated mess age] The system [employer] generated this result transmitted ref erence range: <=5.90. The reference range was not used to int erpret this result as normal/abnormal . RECOMMENDED COUMADIN/WARFARIN INR THERAPY RANGESSTANDARD DOSE: 2.0 - 3.0 Includes: PROPHYLAXIS for venous thrombosis, systemic embolization; TREATMENT for venous thrombosis and/or pulmonary embolus.HIGH RISK: Target INR is 2.5-3.5 for patients with mechanical heart valves.CT, [id number] 20:32:00Unlisted Reason for Exam - Click Yes and Enter Reason Below->NoIs this for enterography?->NoWill this procedure require oral contrast?->No [facility] : 1985 Sex: MFINAL REPORT [...] MDReport Verified Date/Time: 07/30/2021 20:32:18 Reading Location: [address] Reading Room Basic metabolic panel (Na, K+, Cl, CO2, Glu, Ca, BUN, Cr)2021-07-30 20:00:22 Test Item Value Reference Range Interpretation Comments Sodium (test code = 135 meq/L 259-465 1753-2) Potassium (test code = 4.2 meq/L 3.6-5.5 2823-3) Chloride (test code = 103 meq/L 98-106 2074-0) CO2 (test code = 24 meq/L -2028-03) BUN (test code = 8 mg/dL 10-26 L 3094-0) Creatinine (test code 0.75 mg/dL 0.50-1.20 = 2160-0) Glucose (test code = 77 mg/dL 70-110 2345-7) Calcium (test code = 9.1 mg/dL 8.5-10.5 27042-5) EGFR (test code = 118 mL/min/1.73 [place] [address]-7) NOT ACCURATE CREATININE CLEARANCE IN PREDICTING GLOMERULAR FILTRATION RATE . ESTIMATED GFR I S NOT APPLICABLE FOR DIALYSIS PATIENTS. BRISA (test code = BRISA) [employer] ID - [id number] r ID - [id number] r ID - [id number] r ID - [id number] r ID - [id number] r ID - [id number] r ID - [id number] r ID - [id number] r ID - [id number] r ID - [id number] r ID - [id number] r ID - [id number] Lab Interpretation Abnormal (test code = 83025-4) [facility] (Na, K+, Cl, CO2, Glu, Ca, BUN, Cr)2021-07-30 20:00:22 Test Item Value Reference Range Interpretation Comments Sodium (test code = 135 meq/L 825-045 5245-2) Potassium (test code = 4.2 meq/L 3.6-5.5 2823-3) Chloride (test code = 103 meq/L 98-106 2074-0) CO2 (test code = 24 meq/L -2028-03) BUN (test code = 8 mg/dL 10-26 L 3094-0) Creatinine (test code 0.75 mg/dL 0.50-1.20 = 2160-0) Glucose (test code = 77 mg/dL 70-110 2345-7) Calcium (test code = 9.1 mg/dL 8.5-10.5 10011-2) EGFR (test code = 118 mL/min/1.73 [place] [address]-2) NOT ACCURATE CREATININE CLEARANCE IN PREDICTING GLOMERULAR FILTRATION RATE . ESTIMATED GFR I S NOT APPLICABLE FOR DIALYSIS PATIENTS. BRISA (test code = BRISA) [employer] Supervisor ID - [id number] r ID - [id number] r ID - [id number] r ID - [id number] r ID - [id number] r ID - [id number] r ID - [id number] r ID - [id number] r ID - [id number] r ID - [id number] r ID - [id number] r ID - [id number] Lab Interpretation Abnormal (test code = 75299-1) [facility] (Na, K+, Cl, CO2, Glu, Ca, BUN, Cr)2021-07-30 20:00:22 Test Item Value Reference Range Interpretation Comments Sodium (test code = 135 meq/L 840-873 9350-2) Potassium (test code = 4.2 meq/L 3.6-5.5 2823-3) Chloride (test code = 103 meq/L 98-106 2075-0) CO2 (test code = 24 meq/L 20-29 2027-9) BUN (test code = 8 mg/dL 10-26 L 3094-0) Creatinine (test code 0.75 mg/dL 0.50-1.20 = 2160-0) Glucose (test code = 77 mg/dL 70-110 2345-7) Calcium (test code = 9.1 mg/dL 8.5-10.5 58191-6) EGFR (test code = 118 mL/min/1.[place] [address]-4) NOT ACCURATE CREATININE CLEARANCE IN PREDICTING GLOMERULAR FILTRATION RATE . ESTIMATED GFR I S NOT APPLICABLE FOR DIALYSIS PATIENTS. BRISA (test code = BRISA) [employer] Super[employer] ID - [id number] r ID - [id number] r ID - [id number] r ID - [id number] r ID - [id number] r ID - [id number] r ID - [id number] r ID - [id number] r ID - [id number] r ID - [id number] r ID - [id number] r ID - [id number] Lab Interpretation Abnormal (test code = 85510-9) [facility] metabolic panel (Na, K+, Cl, CO2, Glu, Ca, BUN, Cr)2021-07-30 20:00:22 Test Item Value Reference Range Interpretation Comments Sodium (test code = 135 meq/L 109-811 5913-2) Potassium (test code = 4.2 meq/L 3.6-5.5 2823-3) Chloride (test code = 103 meq/L 98-106 2075-0) CO2 (test code = 24 meq/L 20-29 8-9) BUN (test code = 8 mg/dL 10-26 L 3094-0) Creatinine (test code 0.75 mg/dL 0.50-1.20 = 2160-0) Glucose (test code = 77 mg/dL 70-110 2345-7) Calcium (test code = 9.1 mg/dL 8.5-10.5 46174-1) EGFR (test code = 118 mL/min/1.73 sq m [facility] [place] [address]-9) NOT ACCURATE CREATININE CLEARANCE IN PREDICTING GLOMERULAR FILTRATION RATE . ESTIMATED GFR I S NOT APPLICABLE FOR DIALYSIS PATIENTS. BRISA (test code = BRISA) [employer] Supervisor ID - [id number] r ID - [id number] r ID - [id number] r ID - [id number] r ID - [id number] r ID - [id number] r ID - [id number] r ID - [id number] r ID - [id number] r ID - [id number] r ID - [id number] r ID - [id number] Lab Interpretation Abnormal (test code = 94785-3) [facility] metabolic panel (Na, K+, Cl, CO2, Glu, Ca, BUN, Cr)2021-07-30 20:00:22 Test Item Value Reference Range Interpretation Comments Sodium (test code = 135 meq/L 246-002 9976-2) Potassium (test code = 4.2 meq/L 3.6-5.5 2823-3) Chloride (test code = 103 meq/L 98-106 2074-0) CO2 (test code = 24 meq/L -2028-03) BUN (test code = 8 mg/dL 10-26 L 3094-0) Creatinine (test code 0.75 mg/dL 0.50-1.20 = 2160-0) Glucose (test code = 77 mg/dL 70-110 2345-7) Calcium (test code = 9.1 mg/dL 8.5-10.5 16383-2) EGFR (test code = 118 mL/min/1.73 sq m [facility] [place] [address]-4) NOT ACCURATE CREATININE CLEARANCE IN PREDICTING GLOMERULAR FILTRATION RATE . ESTIMATED GFR I S NOT APPLICABLE FOR DIALYSIS PATIENTS. BRISA (test code = BRISA) [employer] Supervisor ID - [id number] r ID - [id number] r ID - [id number] r ID - [id number] r ID - [id number] r ID - [id number] r ID - [id number] r ID - [id number] r ID - [id number] r ID - [id number] r ID - [id number] r ID - [id number] Lab Interpretation Abnormal (test code = 22518-0) [facility] (Na, K+, Cl, CO2, Glu, Ca, BUN, Cr)2021-07-30 20:00:22 Test Item Value Reference Range Interpretation Comments Sodium (test code = 135 meq/L 792-863 3964-2) Potassium (test code = 4.2 meq/L 3.6-5.5 2823-3) Chloride (test code = 103 meq/L 98-106 2074-0) CO2 (test code = 24 meq/L -2028-03) BUN (test code = 8 mg/dL 10-26 L 3094-0) Creatinine (test code 0.75 mg/dL 0.50-1.20 = 2160-0) Glucose (test code = 77 mg/dL 70-110 2345-7) Calcium (test code = 9.1 mg/dL 8.5-10.5 58033-4) EGFR (test code = 118 mL/min/1.[place] [address]-4) NOT ACCURATE CREATININE CLEARANCE IN PREDICTING GLOMERULAR FILTRATION RATE . ESTIMATED GFR I S NOT APPLICABLE FOR DIALYSIS PATIENTS. BRISA (test code = BRISA) [employer] Supervisor ID - [id number] r ID - [id number] r ID - [id number] r ID - [id number] r ID - [id number] r ID - [id number] r ID - [id number] r ID - [id number] r ID - [id number] r ID - [id number] r ID - [id number] r ID - [id number] Lab Interpretation Abnormal (test code = 09767-9) [facility] (Na, K+, Cl, CO2, Glu, Ca, BUN, Cr)2021-07-30 20:00:22 Test Item Value Reference Range Interpretation Comments Sodium (test code = 135 meq/L 079-911 2936-2) Potassium (test code = 4.2 meq/L 3.6-5.5 2823-3) Chloride (test code = 103 meq/L 98-106 2075-0) CO2 (test code = 24 meq/L 20-29 2027-9) BUN (test code = 8 mg/dL 10-26 L 3094-0) Creatinine (test code 0.75 mg/dL 0.50-1.20 = 2160-0) Glucose (test code = 77 mg/dL 70-110 2345-7) Calcium (test code = 9.1 mg/dL 8.5-10.5 77387-4) EGFR (test code = 118 mL/min/1.[place] [address]-1) NOT ACCURATE CREATININE CLEARANCE IN PREDICTING GLOMERULAR FILTRATION RATE . ESTIMATED GFR I S NOT APPLICABLE FOR DIALYSIS PATIENTS. BRISA (test code = BRISA) [employer] Supervisor ID - [id number] r ID - [id number] r ID - [id number] r ID - [id number] r ID - [id number] r ID - [id number] r ID - [id number] r ID - [id number] r ID - [id number] r ID - [id number] r ID - [id number] r ID - [id number] Lab Interpretation Abnormal (test code = 45619-4) [facility] metabolic panel (Na, K+, Cl, CO2, Glu, Ca, BUN, Cr)2021-07-30 20:00:22 Test Item Value Reference Range Interpretation Comments Sodium (test code = 135 meq/L 427-487 7038-2) Potassium (test code = 4.2 meq/L 3.6-5.5 2823-3) Chloride (test code = 103 meq/L 98-106 2075-0) CO2 (test code = 24 meq/L 20-29 8-9) BUN (test code = 8 mg/dL 10-26 L 3094-0) Creatinine (test code 0.75 mg/dL 0.50-1.20 = 2160-0) Glucose (test code = 77 mg/dL 70-110 2345-7) Calcium (test code = 9.1 mg/dL 8.5-10.5 82504-0) EGFR (test code = 118 mL/min/1.[place] [address]-6) NOT ACCURATE CREATININE CLEARANCE IN PREDICTING GLOMERULAR FILTRATION RATE . ESTIMATED GFR I S NOT APPLICABLE FOR DIALYSIS PATIENTS. BRISA (test code = BRISA) [employer] Supervisor ID - [id number] r ID - [id number] r ID - [id number] r ID - [id number] r ID - [id number] r ID - [id number] r ID - [id number] r ID - [id number] r ID - [id number] r ID - [id number] r ID - [id number] r ID - [id number] Lab Interpretation Abnormal (test code = 48710-0) [facility] METABOLIC [id number] 20:00:22 Test Item Value Reference Range Interpretation [...] S NOT APPLICABLE FOR DIALYSIS PATIEN TS. [employer] Supervisor ID - [id number] ID - [id number] ID - [id number] ID - [id number] ID - [id number] ID - [id number] ID - [id number] ID - [id number] ID - [id number] ID - [id number] ID - [id number] ID - [id number] with platelet count + automated [id number] 19:43:00 Test Item Value Reference Range Interpretation Comments WBC (test code = 6690-2) 6.2 See_Comment [A utomated message] The system [employer] generated this result transmitted ref erence range: 4.0 - 10 .0 K/L. The refe rence range was not u sed to interpret this result as normal/abnor mal. RBC (test code = 789-8) 3.93 See_Comment L [Au tomated message] The system [employer] generated this result transmitted ref erence range: 4.20 - 5 .80 M/L. The refe rence range was not u sed to interpret this result as normal/abnor mal. MCHC (test code = 786-4) 34.2 See_Comment L [A utomated message] The system [employer] generated this result transmitted ref erence range: [...] See_Comment [Aut omated message] 777-3) The system [employer] generated this result transmitted ref erence range: 150 - 43 0 K/CU MM. The referen ce range was not u sed to interpret this result as normal/abnor mal. MPV (test code = 8.7 fL 6.0-11.5 76273-9) nRBC (test code = 413) 0 See_Comment [Aut omated message] The system [employer] generated this result transmitted ref erence range: [...] See_Comment [Aut omated message] 670) The system [employer] generated this result transmitted ref erence range: 1.80 - 8 .00 K/L. The refe rence range was not u sed to interpret this result as normal/abnor mal. # Lymphs (test code = 2.15 See_Comment [Auto mated message] 414) The system [employer] generated this result transmitted ref erence range: 1.48 - 4 .50 K/L. The refe rence range was not u sed to interpret this result as normal/abnor mal. # Monos (test code = 0.49 See_Comment [Autom ated message] 415) The system [employer] generated this result transmitted ref erence range: 0.00 - 1 .30 K/L. The refe rence range was not u sed to interpret this result as normal/abnor mal. # Eos (test code = 416) 0.51 See_Comment H [Au tomated message] The system [employer] generated this result transmitted ref erence range: 0.00 - 0 .50 K/L. The refe rence range was not u sed to interpret this result as normal/abnor mal. # Baso (test code = 417) 0.05 See_Comment [A utomated message] The system [employer] generated this result transmitted ref erence range: 0.00 - 0 .20 K/L. The refe rence range was not u sed to interpret this result as normal/abnor mal. Immature 0 % 0-0 Granulocytes-Relative (test code = 2801) Lab Interpretation (test Abnormal code = 92067-6) [facility] with platelet count + automated [id number] 19:43:00 Test Item Value Reference Range Interpretation Comments WBC (test code = 6690-2) 6.2 See_Comment [A utomated message] The system [employer] generated this result transmitted ref erence range: 4.0 - 10 .0 K/L. The refe rence range was not u sed to interpret this result as normal/abnor mal. RBC (test code = 789-8) 3.93 See_Comment L [Au tomated message] The system [employer] generated this result transmitted ref erence range: 4.20 - 5 .80 M/L. The refe rence range was not u sed to interpret this result as normal/abnor mal. MCHC (test code = 786-4) 34.2 See_Comment L [A utomated message] The system [employer] generated this result transmitted ref erence range: [...] See_Comment [Aut omated message] 777-3) The system [employer] generated this result transmitted ref erence range: 150 - 43 0 K/CU MM. The referen ce range was not u sed to interpret this result as normal/abnor mal. MPV (test code = 8.7 fL 6.0-11.5 51342-8) nRBC (test code = 413) 0 See_Comment [Aut omated message] The system [employer] generated this result transmitted ref erence range: [...] See_Comment [Aut omated message] 670) The system [employer] generated this result transmitted ref erence range: 1.80 - 8 .00 K/L. The refe rence range was not u sed to interpret this result as normal/abnor mal. # Lymphs (test code = 2.15 See_Comment [Auto mated message] 414) The system [employer] generated this result transmitted ref erence range: 1.48 - 4 .50 K/L. The refe rence range was not u sed to interpret this result as normal/abnor mal. # Monos (test code = 0.49 See_Comment [Autom ated message] 415) The system [employer] generated this result transmitted ref erence range: 0.00 - 1 .30 K/L. The refe rence range was not u sed to interpret this result as normal/abnor mal. # Eos (test code = 416) 0.51 See_Comment H [Au tomated message] The system [employer] generated this result transmitted ref erence range: 0.00 - 0 .50 K/L. The refe rence range was not u sed to interpret this result as normal/abnor mal. # Baso (test code = 417) 0.05 See_Comment [A utomated message] The system [employer] generated this result transmitted ref erence range: 0.00 - 0 .20 K/L. The refe rence range was not u sed to interpret this result as normal/abnor mal. Immature 0 % 0-0 Granulocytes-Relative (test code = 2801) Lab Interpretation (test Abnormal code = 63067-3) [facility] with platelet count + automated [id number] 19:43:00 Test Item Value Reference Range Interpretation Comments WBC (test code = 6690-2) 6.2 See_Comment [A utomated message] The system [employer] generated this result transmitted ref erence range: 4.0 - 10 .0 K/L. The refe rence range was not u sed to interpret this result as normal/abnor mal. RBC (test code = 789-8) 3.93 See_Comment L [Au tomated message] The system [employer] generated this result transmitted ref erence range: 4.20 - 5 .80 M/L. The refe rence range was not u sed to interpret this result as normal/abnor mal. MCHC (test code = 786-4) 34.2 See_Comment L [A utomated message] The system [employer] generated this result transmitted ref erence range: [...] code = 308 See_Comment [Aut omated message] 807-3) The system [employer] generated this result transmitted ref erence range: 150 - 43 0 K/CU MM. The referen ce range was not u sed to interpret this result as normal/abnor mal. MPV (test code = 8.7 fL 6.0-11.5 60245-5) nRBC (test code = 413) 0 See_Comment [Aut omated message] The system [employer] generated this result transmitted ref erence range: [...] See_Comment [Aut omated message] 670) The system [employer] generated this result transmitted ref erence range: 1.80 - 8 .00 K/L. The refe rence range was not u sed to interpret this result as normal/abnor mal. # Lymphs (test code = 2.15 See_Comment [Auto mated message] 414) The system [employer] generated this result transmitted ref erence range: 1.48 - 4 .50 K/L. The refe rence range was not u sed to interpret this result as normal/abnor mal. # Monos (test code = 0.49 See_Comment [Autom ated message] 415) The system [employer] generated this result transmitted ref erence range: 0.00 - 1 .30 K/L. The refe rence range was not u sed to interpret this result as normal/abnor mal. # Eos (test code = 416) 0.51 See_Comment H [Au tomated message] The system [employer] generated this result transmitted ref erence range: 0.00 - 0 .50 K/L. The refe rence range was not u sed to interpret this result as normal/abnor mal. # Baso (test code = 417) 0.05 See_Comment [A utomated message] The system [employer] generated this result transmitted ref erence range: 0.00 - 0 .20 K/L. The refe rence range was not u sed to interpret this result as normal/abnor mal. Immature 0 % 0-0 Granulocytes-Relative (test code = 2801) Lab Interpretation (test Abnormal code = 66058-4) [facility] with platelet count + automated [id number] 19:43:00 Test Item Value Reference Range Interpretation Comments WBC (test code = 6690-2) 6.2 See_Comment [A utomated message] The system [employer] generated this result transmitted ref erence range: 4.0 - 10 .0 K/L. The refe rence range was not u sed to interpret this result as normal/abnor mal. RBC (test code = 789-8) 3.93 See_Comment L [Au tomated message] The system [employer] generated this result transmitted ref erence range: 4.20 - 5 .80 M/L. The refe rence range was not u sed to interpret this result as normal/abnor mal. MCHC (test code = 786-4) 34.2 See_Comment L [A utomated message] The system [employer] generated this result transmitted ref erence range: [...] See_Comment [Aut omated message] 777-3) The system [employer] generated this result transmitted ref erence range: 150 - 43 0 K/CU MM. The referen ce range was not u sed to interpret this result as normal/abnor mal. MPV (test code = 8.7 fL 6.0-11.5 83943-5) nRBC (test code = 413) 0 See_Comment [Aut omated message] The system [employer] generated this result transmitted ref erence range: [...] See_Comment [Aut omated message] 670) The system [employer] generated this result transmitted ref erence range: 1.80 - 8 .00 K/L. The refe rence range was not u sed to interpret this result as normal/abnor mal. # Lymphs (test code = 2.15 See_Comment [Auto mated message] 414) The system [employer] generated this result transmitted ref erence range: 1.48 - 4 .50 K/L. The refe rence range was not u sed to interpret this result as normal/abnor mal. # Monos (test code = 0.49 See_Comment [Autom ated message] 415) The system [employer] generated this result transmitted ref erence range: 0.00 - 1 .30 K/L. The refe rence range was not u sed to interpret this result as normal/abnor mal. # Eos (test code = 416) 0.51 See_Comment H [Au tomated message] The system [employer] generated this result transmitted ref erence range: 0.00 - 0 .50 K/L. The refe rence range was not u sed to interpret this result as normal/abnor mal. # Baso (test code = 417) 0.05 See_Comment [A utomated message] The system [employer] generated this result transmitted ref erence range: 0.00 - 0 .20 K/L. The refe rence range was not u sed to interpret this result as normal/abnor mal. Immature 0 % 0-0 Granulocytes-Relative (test code = 2801) Lab Interpretation (test Abnormal code = 16244-2) [facility] with platelet count + automated [id number] 19:43:00 Test Item Value Reference Range Interpretation Comments WBC (test code = 6690-2) 6.2 See_Comment [A utomated message] The system [employer] generated this result transmitted ref erence range: 4.0 - 10 .0 K/L. The refe rence range was not u sed to interpret this result as normal/abnor mal. RBC (test code = 789-8) 3.93 See_Comment L [Au tomated message] The system [employer] generated this result transmitted ref erence range: 4.20 - 5 .80 M/L. The refe rence range was not u sed to interpret this result as normal/abnor mal. MCHC (test code = 786-4) 34.2 See_Comment L [A utomated message] The system [employer] generated this result transmitted ref erence range: [...] See_Comment [Aut omated message] 777-3) The system [employer] generated this result transmitted ref erence range: 150 - 43 0 K/CU MM. The referen ce range was not u sed to interpret this result as normal/abnor mal. MPV (test code = 8.7 fL 6.0-11.5 72863-2) nRBC (test code = 413) 0 See_Comment [Aut omated message] The system [employer] generated this result transmitted ref erence range: [...] See_Comment [Aut omated message] 670) The system [employer] generated this result transmitted ref erence range: 1.80 - 8 .00 K/L. The refe rence range was not u sed to interpret this result as normal/abnor mal. # Lymphs (test code = 2.15 See_Comment [Auto mated message] 414) The system [employer] generated this result transmitted ref erence range: 1.48 - 4 .50 K/L. The refe rence range was not u sed to interpret this result as normal/abnor mal. # Monos (test code = 0.49 See_Comment [Autom ated message] 415) The system [employer] generated this result transmitted ref erence range: 0.00 - 1 .30 K/L. The refe rence range was not u sed to interpret this result as normal/abnor mal. # Eos (test code = 416) 0.51 See_Comment H [Au tomated message] The system [employer] generated this result transmitted ref erence range: 0.00 - 0 .50 K/L. The refe rence range was not u sed to interpret this result as normal/abnor mal. # Baso (test code = 417) 0.05 See_Comment [A utomated message] The system [employer] generated this result transmitted ref erence range: 0.00 - 0 .20 K/L. The refe rence range was not u sed to interpret this result as normal/abnor mal. Immature 0 % 0-0 Granulocytes-Relative (test code = 2801) Lab Interpretation (test Abnormal code = 95291-4) [facility] with platelet count + automated [id number] 19:43:00 Test Item Value Reference Range Interpretation Comments WBC (test code = 6690-2) 6.2 See_Comment [A utomated message] The system [employer] generated this result transmitted ref erence range: 4.0 - 10 .0 K/L. The refe rence range was not u sed to interpret this result as normal/abnor mal. RBC (test code = 789-8) 3.93 See_Comment L [Au tomated message] The system [employer] generated this result transmitted ref erence range: 4.20 - 5 .80 M/L. The refe rence range was not u sed to interpret this result as normal/abnor mal. MCHC (test code = 786-4) 34.2 See_Comment L [A utomated message] The system [employer] generated this result transmitted ref erence range: [...] See_Comment [Aut omated message] 777-3) The system [employer] generated this result transmitted ref erence range: 150 - 43 0 K/CU MM. The referen ce range was not u sed to interpret this result as normal/abnor mal. MPV (test code = 8.7 fL 6.0-11.5 14048-2) nRBC (test code = 413) 0 See_Comment [Aut omated message] The system [employer] generated this result transmitted ref erence range: [...] See_Comment [Aut omated message] 670) The system [employer] generated this result transmitted ref erence range: 1.80 - 8 .00 K/L. The refe rence range was not u sed to interpret this result as normal/abnor mal. # Lymphs (test code = 2.15 See_Comment [Auto mated message] 414) The system [employer] generated this result transmitted ref erence range: 1.48 - 4 .50 K/L. The refe rence range was not u sed to interpret this result as normal/abnor mal. # Monos (test code = 0.49 See_Comment [Autom ated message] 415) The system [employer] generated this result transmitted ref erence range: 0.00 - 1 .30 K/L. The refe rence range was not u sed to interpret this result as normal/abnor mal. # Eos (test code = 416) 0.51 See_Comment H [Au tomated message] The system [employer] generated this result transmitted ref erence range: 0.00 - 0 .50 K/L. The refe rence range was not u sed to interpret this result as normal/abnor mal. # Baso (test code = 417) 0.05 See_Comment [A utomated message] The system [employer] generated this result transmitted ref erence range: 0.00 - 0 .20 K/L. The refe rence range was not u sed to interpret this result as normal/abnor mal. Immature 0 % 0-0 Granulocytes-Relative (test code = 2801) Lab Interpretation (test Abnormal code = 17966-9) [facility] with platelet count + automated [id number] 19:43:00 Test Item Value Reference Range Interpretation Comments WBC (test code = 6690-2) 6.2 See_Comment [A utomated message] The system [employer] generated this result transmitted ref erence range: 4.0 - 10 .0 K/L. The refe rence range was not u sed to interpret this result as normal/abnor mal. RBC (test code = 789-8) 3.93 See_Comment L [Au tomated message] The system [employer] generated this result transmitted ref erence range: 4.20 - 5 .80 M/L. The refe rence range was not u sed to interpret this result as normal/abnor mal. MCHC (test code = 786-4) 34.2 See_Comment L [A utomated message] The system [employer] generated this result transmitted ref erence range: [...] See_Comment [Aut omated message] 777-3) The system [employer] generated this result transmitted ref erence range: 150 - 43 0 K/CU MM. The referen ce range was not u sed to interpret this result as normal/abnor mal. MPV (test code = 8.7 fL 6.0-11.5 07707-7) nRBC (test code = 413) 0 See_Comment [Aut omated message] The system [employer] generated this result transmitted ref erence range: [...] See_Comment [Aut omated message] 670) The system [employer] generated this result transmitted ref erence range: 1.80 - 8 .00 K/L. The refe rence range was not u sed to interpret this result as normal/abnor mal. # Lymphs (test code = 2.15 See_Comment [Auto mated message] 414) The system [employer] generated this result transmitted ref erence range: 1.48 - 4 .50 K/L. The refe rence range was not u sed to interpret this result as normal/abnor mal. # Monos (test code = 0.49 See_Comment [Autom ated message] 415) The system [employer] generated this result transmitted ref erence range: 0.00 - 1 .30 K/L. The refe rence range was not u sed to interpret this result as normal/abnor mal. # Eos (test code = 416) 0.51 See_Comment H [Au tomated message] The system [employer] generated this result transmitted ref erence range: 0.00 - 0 .50 K/L. The refe rence range was not u sed to interpret this result as normal/abnor mal. # Baso (test code = 417) 0.05 See_Comment [A utomated message] The system [employer] generated this result transmitted ref erence range: 0.00 - 0 .20 K/L. The refe rence range was not u sed to interpret this result as normal/abnor mal. Immature 0 % 0-0 Granulocytes-Relative (test code = 2801) Lab Interpretation (test Abnormal code = 01233-9) [facility] with platelet count + automated [id number] 19:43:00 Test Item Value Reference Range Interpretation Comments WBC (test code = 6690-2) 6.2 See_Comment [A utomated message] The system [employer] generated this result transmitted ref erence range: 4.0 - 10 .0 K/L. The refe rence range was not u sed to interpret this result as normal/abnor mal. RBC (test code = 789-8) 3.93 See_Comment L [Au tomated message] The system [employer] generated this result transmitted ref erence range: 4.20 - 5 .80 M/L. The refe rence range was not u sed to interpret this result as normal/abnor mal. MCHC (test code = 786-4) 34.2 See_Comment L [A utomated message] The system [employer] generated this result transmitted ref erence range: [...] See_Comment [Aut omated message] 777-3) The system [employer] generated this result transmitted ref erence range: 150 - 43 0 K/CU MM. The referen ce range was not u sed to interpret this result as normal/abnor mal. MPV (test code = 8.7 fL 6.0-11.5 53018-1) nRBC (test code = 413) 0 See_Comment [Aut omated message] The system [employer] generated this result transmitted ref erence range: [...] See_Comment [Aut omated message] 670) The system [employer] generated this result transmitted ref erence range: 1.80 - 8 .00 K/L. The refe rence range was not u sed to interpret this result as normal/abnor mal. # Lymphs (test code = 2.15 See_Comment [Auto mated message] 414) The system [employer] generated this result transmitted ref erence range: 1.48 - 4 .50 K/L. The refe rence range was not u sed to interpret this result as normal/abnor mal. # Monos (test code = 0.49 See_Comment [Autom ated message] 415) The system [employer] generated this result transmitted ref erence range: 0.00 - 1 .30 K/L. The refe rence range was not u sed to interpret this result as normal/abnor mal. # Eos (test code = 416) 0.51 See_Comment H [Au tomated message] The system [employer] generated this result transmitted ref erence range: 0.00 - 0 .50 K/L. The refe rence range was not u sed to interpret this result as normal/abnor mal. # Baso (test code = 417) 0.05 See_Comment [A utomated message] The system [employer] generated this result transmitted ref erence range: 0.00 - 0 .20 K/L. The refe rence range was not u sed to interpret this result as normal/abnor mal. Immature 0 % 0-0 Granulocytes-Relative (test code = 2801) Lab Interpretation (test Abnormal code = 23409-3) [facility] W/PLT COUNT & AUTO [id number] 19:43:00 Test Item Value Reference Range Interpretation [...] PERCENT (BEAKER) (test code = 2801) SURGICAL [id number] 07:40:00 RUN DATE: 09/19/18 [facility] *LIVE* PAGE 1 RUN TIME: 740 Specimen Inquiry RUN USER: INTERFACE -------- ----PATIENT: VERÓNICA NUNN [facility] [id number] AGE/SX: 32/M ROOM: [facility] RE09/15/18REG DR: Keith Swann MD : 83 BED: 1 DIS: 09/16/18 STATUS: DIS IN TLOC: SPEC #: [id number] RECD: 09/15/18 STATUS: DRAGAN REQ #: [id number] DONA: 09/15/[address]: Keith Swann MD ENTERED: 09/18/18 SP TYPE: SURG SPEC OTHR DR: No Primary or Family Physician Self Referred Gale Dowling MDORDERED:GM LEVEL 4 CODES: [id number] - ESOPHAGUS, NOS COPIES TO: No Primary or Family Physician Self Referred Keith Swann MD [address] [place] [address] Gale Dowling MD [address] [address] PROCEDURES: GM LEVEL 4 (Incomplete) TISSUES: 1. [...] CONTINUED ON NEXT PAGE RUN DATE: 09/19/18 [facility] *LIVE* PAGE 2 RUN TIME: 740 Specimen Inquiry RUN USER: INTERFACE SPEC #: [id number] PATIENT: VERÓNICA NUNN #[id number] (Continued) POST-OP DIAGNOSIS Esophagitis, supertial tear in the esophagus, R/O Flor, esosinophilic es PRE-OP DIAGNOSIS Hematemesis Signed SIGNATURE ON FILE Joce Barbosa DO 09/19/18 0740 END OF REPORT BASIC METABOLIC [id number] 08:40:00 Test Item Value Reference Range Interpretation [...] 9.1 mg/dL 8.0-10.5 N CA) CBC W/AUTO [id number] 08:20:00 Test Item Value Reference Range Interpretation [...] (test code NO = MDIFF) CBC W/AUTO [id number] 22:25:00 Test Item Value Reference Range Interpretation [...] (test code NO = MDIFF) CBC W/AUTO [id number] 12:50:00 Test Item Value Reference Range Interpretation [...] (test code NO = MDIFF) CBC W/AUTO [id number] 07:24:00 Test Item Value Reference Range Interpretation [...] REQUIRED (test NO code = MDIFF) PROTHROMBIN [id number] 00:10:00 Test Item Value Reference Range Interpretation [...] (to prevent recurrent infar ct). CBC W/AUTO [id number] 00:03:00 Test Item Value Reference Range Interpretation [...] REQUIRED (test NO code = MDIFF) PROTHROMBIN [id number] 18:57:00 Test Item Value Reference Range Interpretation Comments PT PATIENT (test code = PTP) 13.1 SECONDS 9.3-12.9 H INTERNATIONAL NORMAL RATIO 1.14 INR Unit 0.8-1.2 N (test code = INR) URINALYSIS [id number] 18:56:00 Test Item Value Reference Range Interpretation [...] code = LEUU) - CT ABD PELVIS [id number] 16:49:00 Name: VERÓNICA NUNN [facility] : 1985 Age/S: 32 / M [address] Unit #: [id number] Loc: [place] [address] Phys: Ivette Choudhary MD Acct: [id number] Dis Date: Status: REG ER PHONE #: [phone] Exam Date: 09/14/2018 1632 FAX #: Reason: abd pain unable to give further info 08/05 mrEXAMS: CPT: [id number] CT ABD PELVIS W/CONT 28033 EXAMINATION: - CT ABD PELVIS W/CONT. LOCATION: [...] hydronephrosis. Underdistended urinary bladder. The bowel loops appearnormal in course and caliber. No bowel obstruction. [...] NUNN : 1985 Age/S: 32 / M [address] Unit #: [id number] Loc: [place] [address] Phys: Ivette Choudhary MD Acct: [id number] Dis Date: Status: REG ER PHONE #:[phone] Exam Date: 09/14/2018 1635 FAX #: Reason: abd pain unable to give further info / mr EX AMS: CPT: [id number] CT ABD PELVIS W/CONT 79866 (Continued) CC: Ivette Choudhary MD Technologist:Mariely Brar, RT(R)(CT) CTDI: DLP: Trnscb Date/Time: 09/14/2018 (1648) [email or web address] Orig Print D/T: S: 09/14/2018 (165) CTDI: DLP: PAGE 2 Signed ReportBASIC METABOLIC [id number] 16:06:00 Test Item Value Reference Range Interpretation [...] CA) 9.7 MG/DL 8.5-10.1 N HEPATIC FUNCTION [id number] 16:06:00 Test Item Value Reference Range Interpretation [...] 89 Unit/L 50-136 N code = ALKP) [id number] 16:06:00 Test Item Value Reference Range Interpretation Comments LIPASE (test code = LIP) 173 Unit/L 114-286 N BASIC METABOLIC [id number] 15:56:00 Test Item Value Reference Range Interpretation [...] CA) 9.7 MG/DL 8.5-10.1 N HEPATIC FUNCTION [id number] 15:56:00 Test Item Value Reference Range Interpretation [...] TOTAL (test code Unit/L 50-136 = ALKP) [id number] 15:56:00 Test Item Value Reference Range Interpretation Comments LIPASE (test code = LIP) 173 Unit/L 114-286 N CBC W/AUTO [id number] 15:47:00 Test Item Value Reference Range Interpretation [...]
--- NOTE | 2022-04-02 09:58 | RAD REPORT ---
EXAM DESCRIPTION: RAD - ENTEROSTOMY TUBE CHECK W/CONTR - 04/02/2022 9:37 am CLINICAL HISTORY: Gastrostomy tube check FINDINGS: 30 cc Gastrografin was administered into the percutaneous gastrostomy tube. The gastric amie dy is opacified. No extravasation contrast Zero fluoroscopy performed. Zero fluoroscopic spot images obtained
--- NOTE | 2022-04-02 10:13 | ER ---
Nurse's Notes [facility] Name: Alexy Mock Age: 36 yrs Sex: Male : 1985 Arrival Date: 04/02/2022 Time: 08:10 Bed 6 Private MD: Diagnosis: Gastrostomy complication, unspecified Presentation: 04/02 08:11 Chief complaint: EMS states: that the pt pulled his G-tube out. Coronavirus screen: At mb9 this time, the client does not indicate any symptoms associated with coronavirus-19. Ebola Screen: Patient denies travel to an Ebola-affected area in the 21 days before illness onset. Initial Sepsis Screen: Does the patient meet any 2 criteria? No. Patient's initial sepsis screen is negative. Does the patient have a suspected source of infection? No. Patient's initial sepsis screen is negative. Risk Assessment: Do you want to hurt yourself or someone else? Unable to obtain. Onset of symptoms was April 02, 2022. 08:11 Method Of Arrival: EMS: [facility] mb9 08:11 Acuity: ELROY 4 mb9 Historical: - Allergies: 08:14 No Known Allergies; mb9 - PMHx: 08:14 abnormal liver function; adhd; Anemia; Bipolar disorder; ENCEPHALOPATHY; DYSPHAGIA; mb9 epilepsy; MR; pressure ulcer sacral region; Hypothyroidism; - PSHx: 08:14 G tube; mb9 - Immunization history:: Adult Immunizations unknown. - Social history:: Smoking status: unknown. Assessment: 08:28 General: Appears in no apparent distress. malnourished, cachectic, Behavior is calm, mb9 cooperative. Pain: Unable to use pain scale. FLACC scale score is 0 out of 10. Neuro: Level of Consciousness is awake, Oriented to none. Neuro: Pt states "I'm cold." Speech is difficult to understand. . Cardiovascular: Heart tones S1 S2 present Rhythm is regular. Respiratory: Breath sounds are clear bilaterally. GI: Site clean. residential reported pt pulled out G-tube this morning. Bowel sounds diminished in right upper quadrant, left upper quadrant, right lower quadrant and left lower quadrant. : Brief noted. EENT: No signs and/or symptoms were reported regarding the EENT system. Derm: Skin is dry, Skin is pale, Skin temperature is cool Dressing noted over sacral area. Dressing completed today by [facility] staff. Musculoskeletal: Range of motion: limited in all extremities. 08:55 Reassessment: Spoke to Lucila at [facility] to verify G-tube size. Stated mb9 the size is unknown. . 09:30 Reassessment: x-ray at bedside . aa5 11:00 Reassessment: EMS at bedside to transport pt. jl7 11:00 Reassessment: Pt cleaned of urinary incontinence, clean brief applied . aa5 11:00 Reassessment: Abdominal binder applied to prevent tampering with PEG tube applied. . aa5 11:00 Neuro: Level of Consciousness is awake. Respiratory: Airway is patent Respiratory aa5 effort is even, unlabored, Respiratory pattern is regular, symmetrical. Derm: Skin is dry, Skin is pale, Skin temperature is warm. Vital Signs: 08:11 BP 116 / 68; Pulse 54; Resp 12; Temp 97.3(O); Pulse Ox 100% on R/A; mb9 11:01 BP 121 / 89; Pulse 56; Resp 14; Pulse Ox 100% ; jl7 ED Course: 08:10 Patient arrived in ED. mb9 08:11 Brii Tamayo, RN is Primary Nurse. mb9 08:11 Arm band placed on. mb9 08:13 Vikram Rich is PHCP. jl9 08:13 John Subramanian MD is Attending Physician. jl9 08:14 Triage completed. mb9 11:00 No provider procedures requiring assistance completed. Patient did not have IV access aa5 during this emergency room visit. Administered Medications: No medications were administered Outcome: 10:13 Discharge ordered by . jl9 11:00 Discharged to [facility]. Report called to [facility] Transfer form completed. aa5 11: Condition: stable 11:00 Discharge instructions given to EMS, Report given to [facility] 11:04 Patient left the ED. aa5 Signatures: Toshia Frederick RN RN aa5 Vasquez Amanda RN RN jl7 Vikram Rich jl9 Brii Tamayo, GILLIAN FRENCH mb9
--- NOTE | 2022-04-02 10:13 | EDPHYS ---
Physician Documentation [facility] [address] [place] Name: Alexy Mock Age: 36 yrs Sex: Male : 1985 Arrival Date: 04/02/2022 Time: 08:10 Bed 6 Private MD: ED Physician John Subramanian HPI: 04/02 08:31 This 36 yrs old Male presents to ER via EMS with complaints of Problem With jl9 Feeding Tube. Patient reportedly pulled out the g tube this morning. Has been seen here before for same issue. . 08:31 Onset: The symptoms/episode began/occurred this morning. Associated signs and symptoms: jl9 The patient has no apparent associated signs or symptoms. Modifying factors: The patient symptoms are alleviated by nothing, the patient symptoms are aggravated by nothing. Unable to obtain HPI due to Baseline MR.. Historical: - Allergies: 08:14 No Known Allergies; mb9 - PMHx: 08:14 abnormal liver function; adhd; Anemia; Bipolar disorder; ENCEPHALOPATHY; DYSPHAGIA; mb9 epilepsy; MR; pressure ulcer sacral region; Hypothyroidism; - PSHx: 08:14 G tube; mb9 - Immunization history:: Adult Immunizations unknown. - Social history:: Smoking status: unknown. ROS: 10:08 Constitutional: Negative for fever, chills, and weight loss, Eyes: Negative for injury, jl9 pain, redness, and discharge, ENT: Negative for injury, pain, and discharge, Neck: Negative for injury, pain, and swelling, Cardiovascular: Negative for chest pain, palpitations, and edema, Respiratory: Negative for shortness of breath, cough, wheezing, and pleuritic chest pain. 10:08 Back: Negative for injury and pain, : Negative for injury, bleeding, discharge, and swelling, MS/Extremity: Negative for injury and deformity, Skin: Negative for injury, rash, and discoloration, Neuro: Negative for headache, weakness, numbness, tingling, and seizure. 10:08 Abdomen/GI: Positive for G tube removed. . Exam: 10:09 Head/Face: Normocephalic, atraumatic. Eyes: Pupils equal round and reactive to light, jl9 extra-ocular motions intact. Lids and lashes normal. Conjunctiva and sclera are non-icteric and not injected. Cornea within normal limits. Periorbital areas with no swelling, redness, or edema. ENT: Mucous membranes moist. Neck: Trachea midline, no thyromegaly or masses palpated, and no cervical lymphadenopathy. Supple, full range of motion without nuchal rigidity, or vertebral point tenderness. No Meningismus. Chest/axilla: Normal chest wall appearance and motion. Nontender with no deformity. No lesions are appreciated. Cardiovascular: Regular rate and rhythm with a normal S1 and S2. No gallops, murmurs, or rubs. Normal PMI, no JVD. No pulse deficits. Respiratory: Lungs have equal breath sounds bilaterally, clear to auscultation and percussion. No rales, rhonchi or wheezes noted. No increased work of breathing, no retractions or nasal flaring. 10:09 Back: No spinal tenderness. No costovertebral tenderness. Full range of motion. Skin: Warm, dry with normal turgor. Normal color with no rashes, no lesions, and no evidence of cellulitis. 10:09 Psych: Awake, alert, with orientation to person, place and time. Behavior, mood, and affect are within normal limits. 10:09 Constitutional: The patient appears in no acute distress, alert, awake. 10:09 Abdomen/GI: Inspection: abdomen appears normal, Bowel sounds: normal, Palpation: abdomen is soft and non-tender, G tube site open as noted. Removed G tube. . 10:09 Neuro: Orientation: is normal, appropriate for stated age, Mentation: is normal, Memory: is normal, Cranial nerves: unable to test, Cerebellar function: unable to test, Motor: the patient is contracted, Sensation: Vital Signs: 08:11 BP 116 / 68; Pulse 54; Resp 12; Temp 97.3(O); Pulse Ox 100% on R/A; mb9 11:01 BP 121 / 89; Pulse 56; Resp 14; Pulse Ox 100% ; jl7 MDM: 08:13 Patient medically screened. jl9 10:10 Data reviewed: vital signs, nurses notes. Counseling: I had a detailed discussion with lee the patient and/or guardian regarding: the historical points, exam findings, and any diagnostic results supporting the discharge/admit diagnosis, radiology results, the need for outpatient follow up. Response to treatment: the patient's symptoms have resolved after treatment, 14 Fr G tube placed.. 04/02 09:14 Order name: XRAY Abdomen 1 View (KUB): 30ml of gastrogafin to PEG jl9 04/02 09:58 Order name: RAD; Complete Time: 10:06 EDMS Administered Medications: No medications were administered Disposition: 11:25 Co-signature as Attending Physician, John Subramanian MD I agree with the assessment and kdr plan of care. Disposition Summary: 04/02/22 10:13 Discharge Ordered Location: Home jl9 Condition: Stable jl9 Diagnosis - Gastrostomy complication, unspecified jl9 Followup: jl9 - With: Private Physician - When: 1 - 2 days - Reason: Recheck today's complaints, Continuance of care, Re-evaluation by your physician Discharge Instructions: - Discharge Summary Sheet jl9 - Gastrostomy Tube Replacement jl9 - Gastrostomy Tube Replacement, Care After jl9 Forms: - Medication Reconciliation Form jl9 - Thank You Letter jl9 - Antibiotic Education jl9 - Prescription Opioid Use jl9 Signatures: Dispatcher [employer] EDSD John Subramanian MD MD [facility] Vikram Rich jl9 Brii Tamayo RN RN mb9 Corrections: (The following items were deleted from the chart) 10:08 10:07 Constitutional: Positive for jl9 jl9 10:08 10:07 Constitutional: Negative for fever, chills, and weight loss, jl9 jl9 10:10 10:08 Constitutional: This is a well developed, well nourished patient who is awake, jl9 alert, and in no acute distress. jl9
[2022-04-03 01:52] VITALS: TEMP 97.3; O2SAT 100
[2022-04-03 01:53] VITALS: BP 121/89
== END 2022-04-02 11:04 | disposition home or self-care (01) ==
LOC: ER 08:06
DX: K94.29 Other complications of gastrostomy (principal)
CPT/HCPCS: 49465; 99283

== ENCOUNTER 2022-04-03 01:03 | Emergency (ER) | payer OTHER ==
--- OUTSIDE RECORDS SUMMARY | 2022-04-03 01:18 | XMS REPORT | Continuity of Care Document ---
:1985 Author Organization [facility] t Address [address] [place] [address] Care Team Providers Name Role Phone Asked, No Pcp Primary Care Physician Unavailable WANDA SHUKLA Attending Clinician Unavailable KAMILLE BETTENCOURT Attending Clinician Unavailable [email or web address] Attending Clinician Unavailable Mariela Linares Attending Clinician [phone] Damir Nieves Attending Clinician [phone] ISIDORO KUMAR Attending Clinician Unavailable Isidoro Kumar Attending Clinician ANNIE MOON Attending Clinician Unavailable ARVIND LOWE Attending Clinician Unavailable Arvind Lowe Attending Clinician Chris Vega Attending Clinician MODESTO CLOUD Attending Clinician Unavailable Ai BECKER, Modesto Cruz Attending Clinician [phone] Zain David Attending Clinician Unavailable Molina Hernández MD Attending Clinician Sarai BECKER, Annie Henley Attending Clinician Lion Parry MD, Kym Attending Clinician [phone] Richardson BECKER, Marla Polanco Attending Clinician Rome BECKER, Elida Mendez Attending Clinician Seun Lucero, Malissa Martin Attending Clinician + [phone] ELIDA PETER Attending Clinician Unavailable KYM GUTIERREZ Attending Clinician Unavailable Wanda Shukla Attending Clinician BARRERA ANDERSON Attending Clinician Unavailable Sylvia BECKER, Barrera Siddiqui Attending Clinician [phone] Brii Campbell MD Attending Clinician BRII CAMPBELL [...] Date Expiration Date S [place] MEDICAID [id number] 2018 00:00:00 MEDICARE PART A & [id number] 2010 B 00:00:00 [place] B[place]: [id number] 2010 [place] 00:00:00 [place] [id number] [place] MEDIC[place] A B [id number] 2010 00:00:00 TP14 MAO SSI [id number] 2018 RELATED 00:00:00 Problems Condition Condition Condition Status Onset Resolution Last Treating Co mments Source Name Details Category Date Date Treatment Clinician Date Mechanical Mechanical Problem Active [facility] complicati Complicati 04-02 Me dical on of on of 00:00: gastrostom Gastrostom 00 y y Bed-ridden Bed-ridden Problem Active [facility] 03-29 Medical 00:00: 00 Seen in Seen in Problem Active [facility] nursing Nursing 03-29 Medical home Home 00:00: 00 At high At High Problem Active [facility] risk for Risk for 03-29 Medica l fall Fall 00:00: 00 Chronic Chronic Problem Active [facility] pain Pain 03-25 Medical following Following 00:00: trauma Trauma 00 Influenza Influenza Problem Active [facility] via 03-25 Medical 00:00: 00 COVID-19 Covid-19 Problem Active [facility] a 03-25 Medical 00:00: 00 Restlessne Restlessne Problem Active [facility] ss and ss and 9-16 Medical agitation Agitation 00:00: 00 Total Total Problem Active [facility] self-care Self-care 8-28 Medi jonatan deficit Deficit 00:00: 00 Pressure Pressure Problem Active [facility] a injury of Injury of 8-25 Medi jonatan sacral Sacral 00:00: region of Region of 00 back 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 825 Medical 00:00: 00 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 8-25 Me dical ia ia 00:00: 00 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 thrive Thrive 00:00: syndrome Syndrome 00 Dysphagia Dysphagia Problem Active [facility] via 8 Medical 00:00: 00 Gastrostom Gastrostom Problem Active [facility] y present y Present 8-25 Medi jonatan 00:00: 00 Epilepsy Epilepsy Problem Active [facility] a 8-18 Medical 00:00: 00 Retention Retention Problem Active [facility] via of urine of Urine 12-14 Medica l 00:00: 00 AMS AMS Disease Active [facility] (altered (altered 12-03 Health mental mental 00:00: status) status) 00 Head Head Disease Active [facility] trauma trauma 6 Health 00:00: 00 Facial Facial Disease Active [...] tive 02-26 Health disorder disorder 00:00: 00 Mental Mental Disease Active [facility] retardatio retardatio 02-20 He alth n n 00:00: 00 Bipolar Bipolar Disease Active [facility] disorder, disorder, 02-20 Heal th unspecifie unspecifie 00:00: d d 00 Psychotic 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 8-20 Health 00:00: 00 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 He alth Suicidal Suicidal Disease Active [facility] ideation ideation Health Aggressive Aggressive Disease Active H arris behavior, behavior, Heal th adult adult Other Other Disease Active [facility] insomnia insomnia Health Bipolar 1 Bipolar 1 Disease Active [facility] ris disorder disorder Health Elevated Elevated Disease Active [facility] lithium lithium Health level level Weight Weight Disease Active [facility] loss loss Health 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 Protein-ca Me dical bonny bonny malnutriti Malnutriti on ([place]: on ([place]: less than Less than 60 percent 60 Percent of of standard Standard weight) Weight) Hypoalbumi Hypoalbumi Problem Active [facility] nemia nemia Medical Anemia Anemia Problem Active [facility] Medical Severe Severe Problem Active [facility] bipolar [...] [facility] encephalop Encephalop Me dical athy athy Constipati Constipati Problem Active [facility] on on Medical Underweigh Underweigh Problem Active [facility] t t Medical Elevated Elevated Problem Active [facility] a liver Liver Medical enzymes Enzymes level Level Allergies, Adverse Reactions, Alerts Allergy Allergy Status Severity Reaction(s) Onset Inactive Treating Comm ents Source Name Type Date Date Clinician No Known DA Active [facility] No Known DA Active U 2016-07 [facility] 1-25 [facility] d [facility] No Known DA Active U 2016-07 [facility] 1-25 Clear s 00:00: Andre 00 [facility] NO KNOWN [facility]ergy [facility] Social History Social Habit Start Date Stop Date Quantity Comments Source History SDOH Food [facility] Worry Tobacco use and 2022-01-12 2022-01-[address] [facility] exposure 00:00:00 00:[facility]:00 [facility] Alcohol intake 2022-01-12 2022-01-12 Ex-drinker [facility] 00:00:00 00:00:00 (finding) [facility] Center History SDOH Food 2021-12-23 2021-12-23 [facility] Sex Assigned At [address] [facility] 00:00[facility]00 [facility]00 [facility] Smoking Status Start Date Stop Date Source Tobacco smoking consumption unknown [facility] Never Smoker [facility] Medical Medications Ordered Filled Start Stop Current Ordering Indication Dosage Frequency Signature Comments Components Source Medication Medication Date Date Medication? Clinician (SIG) Name Name furosemide 2021-2021- No 20mg QD Take [address] [facility] [facility] [...] St (LASIX) 20 7-12 07-12 tablet (20 [facility] MG tablet 00:00: 00:00 mg total) [...] Center daily for 3 days. magnesium 2022-0 2021- No 296mL Take 296 [facility] [...] tablet 00 (two) Center times daily. tamsulosin 2022-0 2022- No .4mg Take 0.4 [...] [facility] (FLOMAX) 6-15 09-13 l capsule by [facility] th 0.4 mg 00:00: 23:59 disability mouth capsule 00 :00 daily for 90 days. Start 12/16/21. haloperidoL 2021- No [facility] 10mg QD Take 1 [facility] (HALDOL) 10 6-15 09-13 l tablet by alth mg tablet 00:00: 23:59 disability mouth 00 :00 daily for 90 days. Start 12/16/21. tamsulosin 2021- No [facility] .4mg QD Take 1 [facility] (FLOMAX) 6-15 09-13 l capsule by [facility] 0.4 mg 00:00: 23:59 disability mouth capsule 00 :00 daily for 90 days. Start 12/16/21. haloperidoL 2021- No [facility] 10mg QD Take 1 [facility] (HALDOL) 10 6-15 09-13 l tablet by alth mg tablet 00:00: 23:59 disability mouth 00 :00 daily for 90 days. Start 12/16/21. tamsulosin 2021- No [facility] .4mg QD Take 1 [facility] (FLOMAX) 6-15 09-13 l capsule by [facility] 0.4 mg 00:00: 23:59 disability mouth capsule 00 :00 daily for 90 days. Start 12/16/21. haloperidoL 2021- No [facility] 10mg QD Take 1 [facility] (HALDOL) 10 6-15 09-13 l tablet by alth mg tablet 00:00: 23:59 disability mouth 00 :00 daily for 90 days. Start 12/16/21. tamsulosin 2021- No [facility] .4mg QD Take 1 [facility] (FLOMAX) 6-15 09-13 l capsule by [facility] 0.4 mg 00:00: 23:59 disability mouth capsule 00 :00 daily for 90 days. Start 12/16/21. haloperidoL 2021- No [facility] 10mg QD Take 1 [facility] (HALDOL) 10 6-15 09-13 l tablet by alth mg tablet 00:00: 23:59 disability mouth 00 :00 daily for 90 days. Start 12/16/21. tamsulosin 2-0 2- No [facility] .4mg QD Take 1 [facility] (FLOMAX) 6-15 09-13 l capsule by [facility] 0.4 mg 00:00: 23:59 disability mouth capsule 00 :00 daily for 90 days. Start 12/16/21. haloperidoL 2-0 2- No [facility] 10mg QD Take 1 [facility] (HALDOL) 10 6-15 09-13 l tablet by alth mg tablet 00:00: 23:59 disability mouth 00 :00 daily for 90 days. Start 12/16/21. tamsulosin 2-0 2- No [facility] .4mg QD Take 1 [facility] (FLOMAX) 6-15 09-13 l capsule by [facility] 0.4 mg 00:00: 23:59 disability mouth capsule 00 :00 daily for 90 days. Start 12/16/21. haloperidoL 2-0 2- No [facility]ua 10mg QD Take 1 [facility] (HALDOL) 10 6-15 09-13 l tablet by alth mg tablet 00:00: 23:59 disability mouth 00 :00 daily for 90 days. Start 12/16/21. tamsulosin 2-0 2021- No [facility] .4mg QD Take 1 [facility] (FLOMAX) 6-15 09-13 l capsule by [facility] 0.4 mg 00:00: 23:59 disability mouth capsule 00 :00 daily for 90 days. Start 12/16/21. haloperidoL 2-0 2- No [facility]ua 10mg QD Take 1 [facility] (HALDOL) 10 6-15 09-13 l tablet by alth mg tablet 00:00: 23:59 disability mouth 00 :00 daily for 90 days. Start 12/16/21. clonazePAM 2022-0 Yes .25mg Take 0.[address] (KlonoPIN) 6-14 [facility]: mouth. Medical tablet 00 [place] clonazePAM 2022-0 Yes .25mg Take 0.[address] (KlonoPIN) 6-14 [facility] 0.5 MG 00:00: mouth. Medical tablet 00 [place] clonazePAM 2022-0 Yes .25mg Take 0.25 C [...] by tablet 00 mouth 2 times daily mirtazapine 2021-2021- No [facility] 15mg Take 1 [facility] (REMERON) 6-14 09-12 l tablet by [facility] 15 mg 00:00: 23:59 disability mouth at tablet 00 :00 bedtime nightly for 90 days lithium 2021-2021- No Intellectua 300mg Q.5D Take 1 [facility] carbonate 6-14 09-12 l capsule by [facility] (ESKALITH) 00:00: 23:59 disability mouth 2 [...] [facility] HCL 6-14 09-12 l tablet by [facility] (CATAPRES) 00:00: 23:59 disability mouth 0.1 mg 00 :00 every tablet evening amitriptyli 2021-2021- No Intellectua 10mg Take 1 [facility] ne (ELAVIL) 6-14 09-12 l tablet by [facility] 10 mg 00:00: 23:59 disability mouth at tablet 00 :00 bedtime nightly sennosides- 2021-2021- No Intellectua 2{tbl} Q.5D Take 2 [facility] docusate 6-14 09-12 l tablets by [facility] sodium 00:00: 23:59 disability mouth 2 (SENNA 00 :00 (two) PLUS) times a 8.6-50 mg day for 90 tablet days mirtazapine 2021- No Intellectua 15mg Take 1 [facility] (REMERON) 6-14 09-12 l tablet by [facility] 15 mg 00:00: 23:59 disability mouth at tablet 00 :00 bedtime nightly for 90 days lithium 2021- No Intellectua 300mg Q.5D Take 1 [facility] carbonate 6-14 09-12 l capsule by [facility] (ESKALITH) 00:00: 23:59 disability mouth 2 300 mg 00 :00 (two) capsule times a day for 90 days haloperidoL 2021- No Intellectua 20mg Take 2 [facility] (HALDOL) 10 6-14 09-12 l tablets by [facility]alth mg tablet 00:00: 23:59 disability mouth at 00 :00 bedtime nightly for 90 days cloNIDine 2021- No [facility]ua .1mg Take 1 [facility] HCL 6-14 09-12 l tablet by [facility] (CATAPRES) 00:00: 23:59 disability mouth 0.1 mg 00 :00 every tablet evening amitriptyli 2021- No Intellectua 10mg Take 1 [facility] ne (ELAVIL) 6-14 09-12 l tablet by [facility] 10 mg 00:00: 23:59 disability mouth at tablet 00 :00 bedtime nightly sennosides- 2021- No Intellectua 2{tbl} Q.5D Take 2 [facility] docusate 6-14 09-12 l tablets by [facility] sodium 00:00: 23:59 disability mouth 2 (SENNA 00 :00 (two) PLUS) times a 8.6-50 mg day for 90 tablet days mirtazapine 2021- No [facility]ua 15mg Take 1 [facility] (REMERON) 6-14 09-12 l tablet by [facility] 15 mg 00:00: 23:59 disability mouth at tablet 00 :00 bedtime nightly for 90 days lithium 2021-2021- No Intellectua 300mg Q.5D Take 1 [facility] carbonate 6-14 09-12 l capsule by [facility] ([facility]) 00:00: 23:59 disability mouth 2 300 [...] [facility] HCL 6-14 09-12 l tablet by [facility] (CATAPRES) 00:00: 23:59 disability mouth 0.1 mg 00 :00 every tablet evening amitriptyli 2021-2021- No Intellectua 10mg Take 1 [facility] ne (ELAVIL) 6-14 09-12 l tablet by [facility] 10 mg 00:00: 23:59 disability mouth at tablet 00 :00 bedtime nightly sennosides- 2021-2021- No Intellectua 2{tbl} Q.5D Take 2 [place] docusate 6-14 09-12 l tablets by [facility] sodium 00:00: 23:59 disability mouth 2 (SENNA 00 :00 (two) PLUS) times a 8.6-50 mg day for 90 tablet days mirtazapine 2021- No [facility]ua 15mg Take 1 [facility] (REMERON) 6-14 09-12 l tablet by [facility] 15 mg 00:00: 23:59 disability mouth at tablet 00 :00 bedtime nightly for 90 days lithium 2021-0 2021- No Intellectua 300mg Q.5D Take 1 [place] carbonate 6-14 09-12 l capsule by [facility] ([facility]) 00:00: 23:59 disability mouth 2 300 [...] [facility] HCL 6-14 09-12 l tablet by [facility] (CATAPRES) 00:00: 23:59 disability mouth 0.1 mg 00 :00 every tablet evening amitriptyli 2021-0 2021- No Intellectua 10mg Take 1 [facility] ne (ELAVIL) 6-14 09-12 l tablet by [facility] 10 mg 00:00: 23:59 disability mouth at tablet 00 :00 bedtime nightly sennosides- 2021-0 2021- No Intellectua 2{tbl} Q.5D Take 2 [place] docusate 6-14 09-12 l tablets by [facility] sodium 00:00: 23:59 disability mouth 2 (SENNA 00 :00 (two) PLUS) times a 8.6-50 mg day for 90 tablet days mirtazapine 2021- No [facility]ua 15mg Take 1 [facility] (REMERON) 6-14 09-12 l tablet by [facility] 15 mg 00:00: 23:59 disability mouth at tablet 00 :00 bedtime nightly for 90 days lithium 2021-0 2021- No Intellectua 300mg Q.5D Take 1 [place] carbonate 6-14 09-12 l capsule by [facility] (ESKALITH) 00:00: 23:59 disability mouth 2 [...] [facility] HCL 6-14 09-12 l tablet by [facility] (CATAPRES) 00:00: 23:59 disability mouth 0.1 mg 00 :00 every tablet evening amitriptyli 2021- No Intellectua 10mg Take 1 [facility] ne (ELAVIL) 6-14 09-12 l tablet by [facility] 10 mg 00:00: 23:59 disability mouth at tablet 00 :00 bedtime nightly sennosides- 2021-0 2021- No Intellectua 2{tbl} Q.5D Take 2 [place] docusate 6-14 09-12 l tablets by [facility] sodium 00:00: 23:59 disability mouth 2 (SENNA 00 :00 (two) PLUS) times a 8.6-50 mg day for 90 tablet days mirtazapine 2021- No [facility]ua 15mg Take 1 [facility] (REMERON) 6-14 09-12 l tablet by [facility] 15 mg 00:00: 23:59 disability mouth at tablet 00 :00 bedtime nightly for 90 days lithium 2021- No Intellectua 300mg Q.5D Take 1 [facility] carbonate 6-14 09-12 l capsule by [facility] ([facility]) 00:00: 23:59 disability mouth 2 300 mg 00 :00 (two) capsule times a day for 90 days haloperidoL 2021- No [facility] 20mg Take 2 [facility] (HALDOL) 10 6-14 09-12 l tablets by [facility] mg tablet 00:00: 23:59 disability mouth at 00 :00 bedtime nightly for 90 days cloNIDine 2021- No [facility]lectua .1mg Take 1 [facility] HCL 6-14 09-12 l tablet by [facility] ([facility]) 00:00: 23:59 disability mouth 0.1 mg 00 :00 every tablet evening amitriptyli 2021- No Intellectua 10mg Take 1 [facility] ne (ELAVIL) 6-14 09-12 l tablet by [facility] 10 mg 00:00: 23:59 disability mouth at tablet 00 :00 bedtime nightly sennosides- 2021- No Intellectua 2{tbl} Q.5D Take 2 [place] docusate 6-14 09-12 l tablets by [facility] sodium 00:00: 23:59 disability mouth 2 (SENNA 00 :00 (two) PLUS) times a 8.6-50 mg day for 90 tablet days mirtazapine 2021- No [facility]ua 15mg Take 1 [facility] (REMERON) 6-14 09-12 l tablet by [facility] 15 mg 00:00: 23:59 disability mouth at tablet 00 :00 bedtime nightly for 90 days lithium 2021- No Intellectua 300mg Q.5D Take 1 [facility] carbonate 6-14 09-12 l capsule by [facility] ([facility]) 00:00: 23:59 disability mouth 2 300 mg 00 :00 (two) capsule times a day for 90 days haloperidoL 2021- No Intellectua 20mg Take 2 [facility] (HALDOL) 10 6-14 09-12 l tablets by H ealth mg tablet 00:00: 23:59 disability mouth at 00 :00 bedtime nightly for 90 days cloNIDine 2021- No Intellectua .1mg Take 1 [facility] HCL 6-14 09-12 l tablet by [facility] (CATAPRES) 00:00: 23:59 disability mouth 0.1 mg 00 :00 every tablet evening amitriptyli 2021- No Intellectua 10mg Take 1 [facility] ne (ELAVIL) 6-14 09-12 l tablet by [facility] 10 mg 00:00: 23:59 disability [...] [facility] (REMERON) 6-14 09-12 l tablet by [facility] 15 mg 00:00: 23:59 disability mouth at tablet 00 :00 bedtime nightly for 90 days lithium 2021- No Intellectua 300mg Q.5D Take 1 [facility] carbonate 6-14 09-12 l [facility]KALITH[facility] 00:00: 23:59 disability mouth 2 300 mg 00 :00 (two) capsule times a day for 90 days haloperidoL 2021- No Intellectua 20mg Take 2 [facility] (HALDOL) 10 6-14 09-12 l tablets by [facility]alth mg tablet 00:00: 23:59 disability mouth at 00 :00 bedtime nightly for 90 days cloNIDine 2021- No [facility]lectua .1mg Take 1 [facility] HCL 6-14 09-12 l tablet by [facility] (CATAPRES) 00:00: 23:59 disability mouth 0.1 mg 00 :00 every tablet evening amitriptyli 2021- No Intellectua 10mg Take 1 [facility] ne (ELAVIL) 6-14 09-12 l tablet by [facility] 10 mg 00:00: 23:59 disability mouth at tablet 00 :00 bedtime nightly cloNIDine 2-0 2022- No .1mg Take 0.[address] [facility] 6-14 09-12 [facility] (CATAPRES) 00:00: 23:59 mouth. Medi jonatan 0.1 MG 00 :00 Center tablet senna-docus 2021-0 2022- No 2{tbl} Take [address] ate 6-14 09-12 tablets by [facility] (SENOKOT S) 00:00: 23:59 mouth. Med ical 8.6-50 mg 00 :00 Center per tablet cloNIDine 2021-0 2022- No .1mg Take 0.[address] [facility] HCL 6-14 09-12 mg by [facility] (CATAPRES) 00:00: 23:59 mouth. Medi jonatan 0.1 MG 00 :00 Center tablet senna-docus 2021-2- No 2{tbl} Take [address] ate 6-14 09-12 tablets by [facility] (SENOKOT S) 00:00: 23:59 mouth. Med ical 8.6-50 mg 00 :00 Center per tablet cloNIDine 2021-0 2022- No .1mg Take 0.[address] [facility] HCL 6-14 09-12 mg by [facility] (CATAPRES) 00:00: 23:59 mouth. Medi jonatan 0.1 MG 00 :00 Center tablet senna-docus 2021-0 2021- No 2{tbl} Take [address] ate 6-14 09-12 tablets by [facility] (SENOKOT S) 00:00: 23:59 mouth. Med ical 8.6-50 mg 00 :00 Center per tablet cloNIDine 2021-0 2022- No .1mg Take 0.[address] HCL 6-14 09-12 mg by [facility] (CATAPRES) 00:00: 23:59 mouth. Medi jonatan 0.1 MG 00 :00 Center tablet senna-docus 2021-0 2- No 2{tbl} Take [address] ate 6-14 09-12 tablets by [facility] (SENOKOT S) 00:00: 23:59 mouth. Med ical 8.6-50 mg 00 :00 Center per tablet cloNIDine 2021-0 2022- No .1mg Take 0.[address] [facility] HCL 6-14 09-12 mg by [facility] (CATAPRES) 00:00: 23:59 mouth. Medi jonatan 0.1 MG 00 :00 Center tablet senna-docus 2021-0 2- No 2{tbl} Take [address] [...] MG 00 :00 Center tablet senna-docus 2021-0 2- No 2{tbl} Take [address] ate 6-14 09-12 tablets by [facility] (SENOKOT S) 00:00: 23:59 mouth. Med ical 8.6-50 mg 00 :00 Center per tablet cloNIDine 2021-0 2022- No .1mg Take 0.[address] [facility] HCL 6-14 09-12 mg by [facility] (CATAPRES) 00:00: 23:59 mouth. Medi jonatan 0.1 MG 00 :00 Center tablet senna-docus 2021-0 2- No 2{tbl} Take [address] ate 6-14 09-12 tablets by [facility] (SENOKOT S) 00:00: 23:59 mouth. Med ical 8.6-50 mg 00 :00 Center per tablet cloNIDine 2021-0 2022- No .1mg Take 0.[address] [facility] HCL 6-14 09-12 mg by [facility] (CATAPRES) 00:00: 23:59 mouth. Medi jonatan 0.1 MG 00 :00 Center tablet senna-docus 2021-0 2021- No 2{tbl} Take [address] ate -14 09-12 tablets by [facility] (SENOKOT S) 00:00: 23:59 mouth. Med ical 8.6-50 mg 00 :00 Center per tablet sennosides- 2021-0 2022- No Intellectua 2{tbl} Q.5D Take 2 [place] docusate -14 09-12 l tablets by [facility]al th sodium 00:00: 23:59 disability mouth 2 (SENNA 00 :00 (two) PLUS) times a 8.6-50 mg day for 90 tablet days sucralfate 2021-0 Yes 1g Q.25D Take 1 [...] Center daily. lithium 300 2022-0 Yes 300mg Q.[id number] Take [address] [facility] capsule 5-27 [id number] mg by [facility] 00:00: 3D mouth 3 Medical 00 (three) Center times daily. lithium 300 2022-0 Yes 300mg Q.[id number] Take [address] [facility] capsule 5-27 [id number] mg by [facility] 00:00: 3D mouth 3 Medical 00 (three) Center times daily. lithium 300 2022-0 Yes 300mg Q.[id number] Take [address] MG capsule 5-27 [id number] mg by [facility] 00:00: 3D mouth 3 Medical 00 (three) Center times daily. lithium 300 2022-0 Yes 300mg Q.[id number] Take [address] [facility] capsule 5-27 [id number] mg by [facility] 00:00: 3D mouth 3 Medical 00 (three) Center times daily. lithium 300 2022-0 Yes 300mg Q.[id number] Take [address] [facility] capsule 5-27 [id number] mg by [facility] 00:00: 3D mouth 3 Medical 00 (three) Center times daily. lithium 300 2022-0 Yes 300mg Q.[id number] Take [address] MG capsule 5-27 [id number] mg by [facility] 00:00: 3D mouth 3 Medical 00 (three) Center times daily. lithium 300 2022-0 Yes 300mg Q.[id number] Take [address] [facility] capsule 5-27 [id number] mg by [facility] 00:00: 3D mouth 3 Medical 00 (three) Center times daily. lithium 300 2022-0 Yes 300mg Q.[id number] Take [address] MG capsule 5-27 [id number] mg by [facility] 00:00: 3D mouth 3 Medical 00 (three) Center times daily. lithium 300 2022-0 Yes 300mg Q.[id number] Take [address] MG capsule 5-27 [id number] mg by [facility] 00:00: 3D mouth 3 Medical 00 (three) Center times daily. amitriptyli 202-0 Yes 10mg QD Take 10 mg [facility] [...] 10 MG 16:23: nightly. Medical tablet 12 [place] primidone 2021-0 Yes 50mg Q.25D Take [address] (MYSOLINE) 5-25 by mouth 4 Chrissie es 50 MG 16:23: (four) Medical tablet 12 times Center daily. propranoloL 2021-0 Yes 40mg Q.[id number] Take [address] (INDERAL) 5-25 [id number] by mouth 3 [facility] 40 MG 16:23: 3D (three) Medical tablet 12 times Center daily. traZODone 2022-0 Yes 100mg QD Take [address] (DESYREL) 5-25 mg by [facility] 100 MG 16:23: mouth Medical tablet 12 nightly. [place] mirtazapine 2021-0 Yes 15mg QD Take [address] (REMERON) 5-25 by mouth [facility] 15 MG 16:23: nightly. Medical tablet 12 [place] OLANZapine 0 Yes 10mg QD Take [address] (ZYPREXA) 5-25 by mouth [facility] 10 MG 16:23: nightly. Medical tablet 12 [place] primidone 2021-0 Yes 50mg Q.25D Take [address] (MYSOLINE) 5-25 by mouth 4 Chrissie es 50 MG 16:23: (four) Medical tablet 12 times Center daily. propranoloL 2021-0 Yes 40mg Q.[id number] Take [address] (INDERAL) 5-25 [id number] by mouth 3 [facility] 40 MG 16:23: 3D (three) Medical tablet 12 times Center daily. traZODone 0 Yes 100mg QD Take [address] (DESYREL) 5-25 mg by [facility] 100 MG 16:23: mouth Medical tablet 12 nightly. [place] amitriptyli Yes 10mg QD Take [address] ne (ELAVIL) 5-25 by mouth Luke s 10 MG 16:23: nightly. Medical tablet 12 [place] benztropine 0 Yes 2mg Q.5D Take 2 [...] 15 MG 16:23: nightly. Medical tablet 12 [place] OLANZapine 0 Yes 10mg QD Take [address] (ZYPREXA) 5-25 by mouth [facility] 10 MG 16:23: nightly. Medical tablet 12 [place] primidone 2021-0 Yes 50mg Q.25D Take [address] (MYSOLINE) 5-25 by mouth 4 Chrissie es 50 MG 16:23: (four) Medical tablet 12 times Center daily. propranoloL 2022-0 Yes 40mg Q.[id number] Take [address] (INDERAL) 5-25 [id number] by mouth 3 [facility] 40 MG 16:23: 3D (three) Medical tablet 12 times Center daily. traZODone 202-0 Yes 100mg QD Take [address] [...] times Center daily. propranoloL 2022-0 Yes 40mg Q.[id number] Take [address] (INDERAL) 5-25 [id number] by mouth 3 [facility] 40 MG 16:23: 3D (three) Medical tablet 12 times Center daily. traZODone 2021-0 Yes 100mg QD Take [address] (DESYREL) 5-25 mg by [facility] 100 MG 16:23: mouth Medical tablet 12 nightly. [place] amitriptyli 2021-0 Yes 10mg QD Take [address] [facility] (ELAVIL) 5-25 by mouth Luke s 10 MG 16:23: nightly. Medical tablet 12 [place] benztropine 2021-0 Yes 2mg Q.5D Take 2 [...] 15 MG 16:23: nightly. Medical tablet 12 [place] OLANZapine 2021-0 Yes 10mg QD Take [address] (ZYPREXA) 5-25 [facility] 10 MG 16:23: nightly. Medical tablet 12 [place] primidone 2021-0 Yes 50mg Q.25D Take [address] (MYSOLINE) 5-25 by mouth 4 Chrissie es 50 MG 16:23: (four) Medical tablet 12 times Center daily. propranoloL 2021-0 Yes 40mg Q.[id number] Take [address] [facility] (INDERAL) 5-25 [id number] by mouth 3 [facility] 40 MG 16:23: 3D (three) Medical tablet 12 times Center daily. traZODone 2021-0 Yes 100mg QD Take [address] [facility] (DESYREL) 5-25 mg by [facility] 100 MG 16:23: mouth Medical tablet 12 nightly. [place] amitriptyli 2021-0 Yes 10mg QD Take 10 [...] 15 MG 16:23: nightly. Medical tablet 12 [place] OLANZapine 0 Yes 10mg QD Take [address] (ZYPREXA) 5-25 by mouth [facility] 10 MG 16:23: nightly. Medical tablet 12 [place] primidone 0 Yes 50mg Q.25D Take [address] (MYSOLINE) 5-25 by mouth 4 Chrissie es 50 MG 16:23: (four) Medical tablet 12 times Center daily. propranoloL 0 Yes 40mg Q.[id number] Take [address] [facility] (INDERAL) 5-25 [id number] by mouth 3 [facility] 40 MG 16:23: [...] 16:23: nightly. Medical tablet 12 Center OLANZapine 0 Yes 10mg QD Take [address] (ZYPREXA) 5-25 by mouth [facility] 10 MG 16:23: nightly. Medical tablet 12 [facility] primidone 0 Yes 50mg Q.25D Take [address] (MYSOLINE) 5-25 by mouth 4 Chrissie es 50 MG 16:23: (four) Medical tablet 12 times Center daily. propranoloL 0 Yes 40mg Q.[id number] Take [address] [facility] (INDERAL) 5-25 [id number] by mouth 3 [facility] 40 MG 16:23: 3D (three) Medical tablet 12 times Center daily. traZODone 0 Yes 100mg QD Take [address] [facility] (DESYREL) 5-25 mg by [facility] 100 MG 16:23: mouth Medical tablet 12 nightly. [place] amitriptyli 0 Yes 10mg QD Take 10 [...] 15 MG 16:23: nightly. Medical tablet 12 [place] OLANZapine 2021-0 Yes 10mg QD Take [address] (ZYPREXA) 5-25 by mouth [facility] 10 MG 16:23: nightly. Medical tablet 12 [place] primidone 2021-0 Yes 50mg Q.25D Take [address] (MYSOLINE) 5-25 by mouth 4 Chrissie es 50 MG 16:23: (four) Medical tablet 12 times Center daily. propranoloL 2021-0 Yes 40mg Q.[id number] Take [address] [facility] (INDERAL) 5-25 [id number] by mouth 3 [facility] 40 MG 16:23: 3D (three) Medical tablet 12 times Center daily. traZODone 2021-0 Yes 100mg QD Take [address] [facility] (DESYREL) 5-25 mg by [facility] 100 MG 16:23: mouth Medical tablet 12 nightly. [place] amitriptyli 0 Yes 10mg QD Take [address] [facility] (ELAVIL) 5-25 by mouth [facility] 10 MG 16:23: nightly. Medical tablet 12 [place] benztropine 2021-0 Yes 2mg Q.5D Take 2 [...] 16:23: nightly. Medical tablet 12 Center OLANZapine 2022-0 Yes 10mg QD Take [address] (ZYPREXA) 5-25 by mouth [facility] 10 MG 16:23: nightly. Medical tablet 12 Center primidone 0 Yes 50mg Q.25D Take [address] (MYSOLINE) 5-25 by mouth 4 Chrissie es 50 MG 16:23: (four) Medical tablet 12 times Center daily. propranoloL 0 Yes 40mg Q.[id number] Take [address] [facility] (INDERAL) 5-25 [id number] by mouth 3 [facility] 40 MG 16:23: 3D (three) Medical tablet 12 times Center daily. traZODone 0 Yes 100mg QD Take [address] [facility] [address] (DESYREL) 5-25 mg by [facility] 100 MG 16:23: mouth Medical tablet 12 nightly. [place] amitriptyli 0 Yes 10mg QD Take 10 [...] Medica l 12 times Center daily. polyethylen 2021-0 2021- No 17g QD Take [...] Time Observation Value Comments Source BP Diastolic 2022-03-23 00:00:00 88 mm[Hg] [facility] Height 2022-03-23 00:00:00 70 [in_i] [facility] BMI (Body Mass Index) 2022-03-23 00:00:00 13.6 kg/m2 [facility] BP Systolic 2022-03-23 00:00:00 115 mm[Hg] [facility] Body Weight 2022-03-23 00:00:00 1520 [oz_av] [facility] ed[facility] BP Diastolic 2022-03-22 00:00:00 55 mm[Hg] [facility] Height 2022-03-22 00:00:00 70 [in_i] [facility] BMI (Body Mass Index) 2022-03-22 00:00:00 13.4 kg/m2 [facility] BP Systolic 2022-03-22 00:00:00 104 mm[Hg] [facility] Body Weight 2022-03-22 00:00:00 1492 [oz_av] [facility] BP Diastolic 2022-03-16 00:00:00 68 mm[Hg] [facility] Height 2022-03-16 00:00:00 70 [in_i] [facility] BP Systolic 2022-03-16 00:00:00 109 mm[Hg] [facility] Body Weight 2022-03-16 00:00:00 1492 [oz_av] [...] kg Systolic blood 2022-01-12 17:37:00 114 mm[Hg] [facility] Diastolic blood 2022-01-12 17:37:00 74 mm[Hg] [facility] Heart rate 2022-01-12 17:37:00 60 /min [facility] Respiratory rate 2022-01-12 17:37:00 16 /min [facility] Oxygen saturation in 2022-01-12 17:37:00 98 /min [facility] Arterial blood by Medical Ce nter Pulse oximetry Body temperature 2022-01-12 15:34:00 36.67 Darling [facility] Body height 2022-01-12 15:34:00 162.6 cm [facility] Body weight 2022-01-12 15:34:00 54.432 kg [facility] BMI 2022-01-12 15:34:00 20.60 kg/m2 [facility] Systolic blood 2021-12-23 11:21:00 89 mm[Hg] [facility] pressure Diastolic blood 2021-12-23 11:21:00 56 mm[Hg] [facility] pressure Heart rate 2021-12-23 11:21:00 64 /min [facility] Respiratory rate 2021-12-23 11:21:00 18 /min [facility] Body height 2021-12-23 11:21:[address] [facility] Body weight 2021-12-23 11:21:[address] [facility] BMI 2021-12-23 11:21:00 18.40 kg/m2 [facility] Body temperature 2021-12-16 11:10:00 37.06 Darling [facility] Oxygen saturation in 2021-12-16 11:10:00 97 /min [facility] Arterial blood by Pulse oximetry Respiratory rate 2021-07-30 18:40:00 20 /min [facility] Body height 2021-07-30 18:40:00 177.8 cm [facility] Body weight 2021-07-30 18:40:00 54.1 kg [facility] BMI 2021-07-30 18:40:00 17.11 kg/m2 [facility] Oxygen saturation in 2021-07-30 18:40:00 100 /min [facility] Arterial blood by Medical Ce nter Pulse oximetry Systolic blood 2021-07-30 18:40:00 102 mm[Hg] [facility] Diastolic blood 2021-07-30 18:40:00 60 mm[Hg] [facility] Heart rate 2021-07-30 18:40:00 56 /min [facility] Body temperature 2021-07-30 18:40:00 36.61 Darling [facility] Procedures Procedure Date / Time Performed Performing Clinician Sourkristin e CBC W/PLT COUNT & AUTO 2022-01-12 16:35:[address] [place] [address] [facility] DIFFERENTIAL [facility] COMPREHENSIVE METABOLIC 2022-01-12 16:35:[address] [place] [address] [facility] PANEL [facility] B-TYPE NATRIURETIC FACTOR 2022-01-12 16:35:[address] [address] [facility] (BNP) [facility] CBC W/PLT COUNT & AUTO 2022-01-12 16:35:[address] [place] [address] [facility] DIFFERENTIAL [facility] CBC (WITHOUT 2021-12-23 12:16:00 Annie Moon [facility] DIFFERENTIAL) COMPREHENSIVE METABOLIC 2021-12-23 12:16:00 Annie Moon [facility] PANEL HGB/HCT 2021-12-15 15:09:00 Ruthy Matthews a lth XRAY MODIFIED BARIUM 2021-12-15 11:40:00 Ruthy Matthews [facility] SWALLOW W CINE/VIDEO (MBS) GLUCOSE POC 2021-12-15 10:53:00 Elida Peter LIVER PROFILE 2021-12-15 04:50:00 MutTalha ray h Malissa P BASIC METABOLIC PANEL 2021-12-15 04:50:00 MutucTalha cisneros [facility] Malissa P CBC/DIFF 2021-12-15 04:50:00 MutucumarTalha tapia h [place] P CBC 2021-12-15 04:50:00 Mutucamelia, Talha Abreu h [place] P DIFFERENTIAL, MANUAL-WAM 2021-12-15 04:50:00 Mutucumarana, [facility] Malissa P XRAY CHEST 1 VIEW 2021-12-14 14:06:00 Ruthy Matthews ealth 12 LEAD EKG 2021-12-14 14:05:19 Nathalia Matthewstaniya [facility] GLUCOSE POC 2021-12-14 14:00:00 Elida Peter PT/INR/PTT 2021-12-14 13:44:00 QuijanoTera wilson h [place] PRO 2021-12-14 13:44:00 QuijanoTera wilson alth COAG STUDIES INTERP 2021-12-14 13:44:00 [facility]era [facility] RE[facility] (BKR) CONSULT CLINICAL CASE 2021-12-14 12:14:27 Seun [facility] MANAGEMENT (RN/SW) Mal[place] P CBC/DIFF 2021-12-14 09:43:00 Compa Matthewsyoseftaniya [facility] lt CBC 2021-12-14 09:43:00 Compa Matthewsyoseftaniya [facility] lt DIFFERENTIAL, [facility] 2021-12-14 09:43:00 [facility] LITHIUM 2021-12-14 08:35:00 Compa Matthewsyoseftaniya [facility] lt LIVER PROFILE 2021-12-14 04:28:00 [facility]ie[facility] [place] [facility] BASIC METABOLIC PANEL 2021-12-14 04:28:00 Mutucumarwillie, [facility] Malissa P CBC/DIFF 2021-12-14 04:28:00 Mutucamelia, [facility] h Malissa P CBC 2021-12-14 04:28:00 Mutucumarwillie, [facility] Malissa P RBC [facility] 2021-12-14 04:28:00 Mutucamelia, [facility] alth Malissa P LITHIUM 2021-12-13 21:15:00 Mutjoseumarwillie, [facility] h Malissa P COMMODE AT BEDSIDE 2021-12-13 08:17:33 Elida [facility] LIVER PROFILE 2021-12-13 04:53:00 Mutucumarwillie, [facility] h Malissa P BASIC METABOLIC PANEL 2021-12-13 04:53:00 Mutucumarana, [facility] Malissa P CBC/DIFF 2021-12-13 04:53:00 Mutucumarana, [facility] Malissa P CBC 2021-12-13 04:53:00 [facility], [facility] LIVER PROFILE 2021-12-12 04:26:00 Mutucumarana, [facility] Malissa P SEQUENTIAL COMPRESSION 2021-12-12 00:42:25 Elida Peter [facility] PUMP CBC/DIFF 2021-12-11 04:51:00 Mut[facility]umarana, [facility] [place] BASIC METABOLIC PANEL 2021-12-11 04:51:00 Mutucumarana, [facility] Malissa P LIVER PROFILE 2021-12-11 04:51:00 [facility]umarana, [facility] CBC 2021-12-11 04:51:00 [facility]ana, [facility] [place] [facility] RETIC COUNT 2021-12-11 04:51:00 Tera Quijano [facility] U/S ABDOMEN LIMITED 2021-12-10 08:50:00 Ruthy Matthews [facility] CBC/DIFF 2021-12-10 05:32:00 [facility]ana, [facility] [place] [facility] BASIC METABOLIC PANEL 2021-12-10 05:32:00 Mutucumarana, [facility] Malissa P LIVER PROFILE 2021-12-10 05:32:00 Mut[facility]umarana, [facility] [place] CBC 2021-12-10 05:32:00 Mutucumarana, [facility] Malissa P CT FEMUR W CONTRAST 2021-12-09 16:25:48 Ruthy Matthews [facility] CBC/DIFF 2021-12-09 04:35:00 Mut[facility]umarana, [facility] [place] [facility] BASIC METABOLIC PANEL 2021-12-09 04:35:00 Mutucumarana, [facility] Malissa P LIVER PROFILE 2021-12-09 04:35:00 Mut[facility]umarana, [facility] CBC 2021-12-09 04:35:00 Mutucumarana, [facility] Malissa P VIT D, 25-HYDROXY 2021-12-09 04:35:00 Ruthy Matthews [facility] ealth COMMODE AT BEDSIDE 2021-12-08 21:45:[address] [facility] CBC/DIFF 2021-12-08 05:03:00 Mutucumarwillie [facility] Malissa P BASIC METABOLIC PANEL 2021-12-08 05:03:00 [facility] Malissa P LIVER PROFILE 2021-12-08 05:03:00 Mutucumarwillie [facility] Malissa P CBC 2021-12-08 05:03:00 Mutucumarwillie, [facility] Malissa P INFUSION PUMP 2021-12-07 18:01:36 Elida Peter [facility] CBC/DIFF 2021-12-07 05:21:[address] [facility] BASIC METABOLIC PANEL 2021-12-07 05:21:00 Compa Matthewsyoseftaniya [facility] LIVER PROFILE 2021-12-07 05:21:00 Elida Peter [facility] LACTATE DEHYDROGENASE 2021-12-07 05:21:00 Elida Peter [facility] HAPTOGLOBIN 2021-12-07 05:21:00 Elida Peter [facility] AMMONIA 2021-12-07 05:21:00 Elida Peter [facility] CBC 2021-12-07 05:21:[address] [facility] PT/INR/PTT 2021-12-06 05:02:00 Byron [facility] Carrolltontaniya [facility] CT ABDOMEN AND PELVIS 2021-12-05 16:10:17 [facility] CHEST W CONTRAST 2021-12-05 16:10:17 Michael G[facility] PATHOLOGIST REVIEW 2021-12-05 04:08:00 Tera Quijano [facility] SAVE SMEAR/ NOT FOR PATH 2021-12-05 04:08:00 Tera Quijano [facility] REVIEW LEAD, WHOLE BLOOD (ADULT) 2021-12-04 11:14:00 Byron [facility] DIRECT ANTIGLOBULIN TEST 2021-12-04 10:15[facility] MARINA [place] P HIV AG/AB COMBO ROUTINE 2021-12-04 10:15:00 Seun [facility] SCREENING Malissa Martin HEPATITIS PANEL 2021-12-04 10:15:00 aTlha Kohli h [place] P HEMOGLOBIN A1C 2021-12-04 04:06:00 Talha Kohli [facility] Malissa P LACTATE DEHYDROGENASE 2021-12-04 04:06:00 Seun [facility] [place] P CBC/DIFF 2021-12-04 04:06:[address] [facility] BASIC METABOLIC PANEL 2021-12-04 04:06:00 Compa Matthewsyoseftaniya [facility] CBC 2021-12-04 04:06:[address] [facility] RETIC COUNT 2021-12-04 04:06:00 Talha Kohli Malissa Martin SAVE SMEAR/ NOT FOR PATH 2021-12-04 04:06:00 Seun [facility] REVIEW [place]issa Martin FREE T4 2021-12-04 04:06:[address] [facility] URINALYSIS W/REFLEX TO 2021-12-03 16:54:00 Seun [facility] URINE CULTURE Malissa Mario URINALYSIS 2021-12-03 16:54:00 Talha Kohli P URINE CULTURE COLLECTION 2021-12-03 16:54:00 Seun [facility] KIT Malissa P NUTRITION CONSULT 2021-12-03 07:40:36 Talha Kohli [facility] ASSESSMENT Malissa P IRON PROFILE 2021-12-03 04:44:00 Talha Kohliine P CBC/DIFF 2021-12-03 04:44:00 Talha Kohlimaine P CBC 2021-12-03 04:44:00 Talha Kohliine P THYROID STIMULATING 2021-12-03 04:44:00 Talha Kohli [facility] HORMONE (TSH) Malissa P VITAMIN B12 2021-12-03 04:44:00 Nateucamelia, [facility] Malissa P FOLIC ACID 2021-12-03 04:44:00 Seun[facility] FREE T4 2021-12-03 04:44:00 Natejoseamelia, [facility] HAPTOGLOBIN 2021-12-03 04:44:00 Nateucumarwillie, [facility] Malissa P SAVE SMEAR/ NOT FOR PATH 2021-12-03 04:44:00 [facility] REVIEW Malissa P SEQUENTIAL COMPRESSION 2021-12-03 03:19:55 [facility], [facility] PUMP Malissa P SARS-COV-2, FLU A/B, RSV 2021-12-03 01:06:00 Salvador [facility] CORONAVIRUS, COVID-19, 2021-12-03 01:06:00 Pan [facility] YOSHI CREATININE POC 2021-12-02 20:31:00 Lion Parry [facility] Kym BMP POC 2021-12-02 20:31:00 Lion Sohan [facility] Kym CBC/DIFF 2021-12-02 20:17:00 Marino Crooks [facility] CBC 2021-12-02 20:17:00 Marino Crooks [facility] LITHIUM 2021-12-02 20:17:00 Moe Sim [facility] COMPREHENSIVE METABOLIC 2021-12-02 20:17:00 Seun, [facility] PANEL Malissa P FERRITIN 2021-12-02 20:17:00 Seun [facility] Malissa P CT HEAD W/O CONTRAST 2021-12-02 18:26:[facility]LVIS WITH IV 2021-07-30 20:25:00 Adrian Brii [facility] CBC W/PLT COUNT & AUTO 2021-07-30 19:37:00 Adrian Janet [facility] BASIC METABOLIC PANEL (7) 2021-07-30 19:37:00 Brii Campbell [facility] PROTHROMBIN TIME/INR 2021-07-30 19:37:00 Brii Campbell [facility] CBC W/PLT COUNT & AUTO 2021-07-30 19:37:00 Brii Campbell [facility] Plan of Care Planned Activity Planned Date Details Comments Source Future Scheduled Test 2025-07-17 DTAP/TDAP/TD [facility] 00:00:00 VACCINES (2 - Td or Medical Center Tdap) [code = DTAP/TDAP/TD VACCINES (2 - Td or Tdap)] Future Scheduled Test 2025-07-17 DTAP/TDAP/TD [facility] 00:00:00 VACCINES (2 - Td or Medical Center Tdap) [code = DTAP/TDAP/TD VACCINES (2 - Td or Tdap)] Future Scheduled Test 2025-07-17 DTAP/TDAP/TD [facility] 00:00:00 VACCINES (2 - Td or Medical Center Tdap) [code = DTAP/TDAP/TD VACCINES (2 - Td or Tdap)] Future Scheduled Test 2025-07-17 DTAP/TDAP/TD [facility] 00:00:00 VACCINES (2 - Td or Medical Center Tdap) [code = DTAP/TDAP/TD VACCINES (2 - Td or Tdap)] Future Scheduled Test 2025-07-17 DTAP/TDAP/TD [facility] 00:00:00 VACCINES (2 - Td or Medical Center Tdap) [code = DTAP/TDAP/TD VACCINES (2 - Td or Tdap)] Future Scheduled Test 2025-07-17 DTAP/TDAP/TD [facility] 00:00:00 VACCINES (2 - Td or Medical Center Tdap) [code = DTAP/TDAP/TD VACCINES (2 - Td or Tdap)] Future Scheduled Test 2025-07-17 DTAP/TDAP/TD [facility] 00:00:00 VACCINES (2 - Td or Medical Center Tdap) [code = DTAP/TDAP/TD VACCINES (2 - Td or Tdap)] Future Scheduled Test 2025-07-17 DTAP/TDAP/TD [facility] 00:00:00 VACCINES (2 - Td or Medical Center Tdap) [code = DTAP/TDAP/TD VACCINES (2 - Td or Tdap)] Future Scheduled Test 2025-07-17 DTAP/TDAP/TD [facility] 00:00:00 VACCINES (2 - Td or Medical Center Tdap) [code = DTAP/TDAP/TD VACCINES (2 - Td or Tdap)] Future Scheduled Test 2022-04-03 [facility]MM [facility] 00:00:00 Seasonal (>/= 19 yrs) [code = IMM Influenza Seasonal (>/= 19 yrs)] Future Scheduled Test 2022-04-03 [facility] 00:00:00 Seasonal (>/= 19 yrs) [code = IMM Influenza Seasonal (>/= 19 yrs)] Future Scheduled Test 2022-04-03 [facility] 00:00:00 Seasonal (>/= 19 yrs) [code = IMM Influenza Seasonal (>/= 19 yrs)] Future Scheduled Test 2022-04-03 [facility] 00:00:00 Seasonal (>/= 19 yrs) [code = IMM Influenza Seasonal (>/= 19 yrs)] Future Scheduled Test 2022-04-03 [facility] 00:00:00 Seasonal (>/= 19 yrs) [code = IMM Influenza Seasonal (>/= 19 yrs)] Future Scheduled Test 2022-04-03 [facility] 00:00:00 Seasonal (>/= 19 yrs) [code = IMM Influenza Seasonal (>/= 19 yrs)] Future Scheduled Test 2022-04-03 [facility] 00:00:00 Seasonal (>/= 19 yrs) [code = IMM Influenza Seasonal (>/= 19 yrs)] Future Scheduled Test 2022-04-03 [facility] 00:00:00 Seasonal (>/= 19 yrs) [...] (#1)] Future Scheduled Test 2022-03-03 INFLUENZA VACCINE [facility] 12:27:23 [code = INFLUENZA VACCINE] Future Scheduled Test 2022-03-03 HEPATITIS B VACCINES [facility] 12:27:23 (1 of 3 - 3-dose series) [code = HEPATITIS B VACCINES (1 of 3 - 3-dose series)] Future Scheduled Test 2022-03-03 COVID-19 VACCINE [facility] 12:27:23 (#1) [code = COVID-19 VACCINE (#1)] Future Scheduled Test 2022-03-03 INFLUENZA VACCINE [facility] 12:27:23 [code = INFLUENZA VACCINE] Future Scheduled Test 2022-03-03 HEPATITIS B VACCINES [facility] 12:27:23 (1 of 3 - 3-dose series) [code = HEPATITIS B VACCINES (1 of 3 - 3-dose series)] Future Scheduled Test 2022-03-03 COVID-19 VACCINE [facility] 12:27:23 (#1) [code = COVID-19 VACCINE (#1)] Future Scheduled Test 2022-03-03 INFLUENZA VACCINE [facility] 12:27:23 [code = INFLUENZA VACCINE] Future Scheduled Test 2022-03-03 HEPATITIS B VACCINES [facility] 12:27:23 (1 of 3 - 3-dose series) [code = HEPATITIS B VACCINES (1 of 3 - 3-dose series)] Future Scheduled Test 2022-03-03 HEPATITIS B VACCINES [facility] 12:27:23 (1 of 3 - 3-dose series) [code = HEPATITIS B VACCINES (1 of 3 - 3-dose series)] Future Scheduled Test 2022-03-03 COVID-19 VACCINE [facility] 12:27:23 (#1) [code = COVID-19 VACCINE (#1)] Future Scheduled Test 2022-03-03 INFLUENZA VACCINE [facility] 12:27:23 [code = INFLUENZA VACCINE] Future Scheduled Test 2022-03-03 COVID-19 VACCINE [facility] 12:27:23 (#1) [code = COVID-19 VACCINE (#1)] Future Scheduled Test 2022-03-03 INFLUENZA VACCINE [facility] 12:27:23 [code = INFLUENZA VACCINE] Future Scheduled Test 2022-03-03 HEPATITIS B VACCINES [facility] 12:27:23 (1 of 3 - 3-dose series) [code = HEPATITIS B VACCINES (1 of 3 - 3-dose series)] Future Scheduled Test 2022-03-03 COVID-19 VACCINE [facility] 12:27:23 (#1) [code = COVID-19 VACCINE (#1)] Future Scheduled Test 2022-03-03 INFLUENZA VACCINE [facility] 12:27:23 [code = INFLUENZA VACCINE] Future Scheduled Test 2022-03-03 HEPATITIS B VACCINES [facility] 12:27:23 (1 of 3 - 3-dose series) [code = HEPATITIS B VACCINES (1 of 3 - 3-dose series)] Future Scheduled Test 2022-03-03 COVID-19 VACCINE [facility] 12:27:23 (#1) [code = COVID-19 VACCINE (#1)] Future Scheduled Test 2022-02-19 COVID-19 VACCINE [facility] 10:27:57 (#1) [code = COVID-19 VACCINE (#1)] Future Scheduled Test 2022-02-19 INFLUENZA VACCINE [facility] 10:27:57 [code = INFLUENZA VACCINE] Future Scheduled Test 2022-02-19 HEPATITIS B VACCINES [facility] 10:27:57 (1 of 3 - 3-dose series) [code = HEPATITIS B VACCINES (1 of 3 - 3-dose series)] Future Scheduled Test 2022-02-19 COVID-19 VACCINE [facility] 10:27:57 (#1) [code = COVID-19 VACCINE (#1)] Future Scheduled Test 2022-02-19 INFLUENZA VACCINE [facility] 10:27:57 [code = INFLUENZA VACCINE] Future Scheduled Test 2022-02-19 HEPATITIS B VACCINES [facility] 10:27:57 (1 of 3 - 3-dose series) [code = HEPATITIS B VACCINES (1 of 3 - 3-dose series)] Future Scheduled Test 2022-02-19 COVID-19 VACCINE [facility] 10:27:57 (#1) [code = COVID-19 VACCINE (#1)] Future Scheduled Test 2022-02-19 INFLUENZA VACCINE [facility] 10:27:57 [code = INFLUENZA VACCINE] Future Scheduled Test 2022-02-19 HEPATITIS B VACCINES [facility] 10:27:57 (1 of 3 - 3-dose series) [...] [facility] 00:[facility]:00 (procedure) [code = [facility] [id number]] Future Scheduled Test 2019-11-[address] [facility] 00:00:00 (procedure) [code = [facility] [id number]] Future Scheduled Test 2019-11-[address] [facility] 00:00:00 (procedure) [code = [facility] [id number]] Future Scheduled Test 2019-11-[address] [facility] 00:00:00 (procedure) [code = [facility] [id number]] Future Scheduled Test 2019-11-[address] [facility] 00:00:00 (procedure) [code = [facility] [id number]] Future Scheduled Test 2019-11-[address] [facility] 00:00:00 (procedure) [code = [facility] [id number]] Future Scheduled Test 2019-11-[address] [facility] 00:00:00 (procedure) [code = [facility] [id number]] Future Scheduled Test 2019-11-[address] [facility] 00:00:00 (procedure) [code = [facility] [id number]] Future Scheduled Test 2019-11-[address] [facility] 00:00:00 (procedure) [code = [facility] [id number]] Future Scheduled Test 2019-11-[address] [facility] 00:00:00 (procedure) [code = [facility] [id number]] Future Scheduled Test 2019-11-[address] [facility] 00:00:00 (procedure) [code = [facility] [id number]] Future Scheduled Test 2019-11-[address] [facility] 00:00:00 (procedure) [code = [facility] [id number]] Future Scheduled Test 2019-11-[address] [facility] 00:00:00 (procedure) [code = [facility] [id number]] Future Scheduled Test 2019-11-[address] [facility] 00:00:00 (procedure) [code = [facility] 84094860] Future Scheduled Test 2019-11-[address] [facility] 00:00:00 (procedure) [code = [facility] 72630993] Future Scheduled Test 2019-11-[address] [facility] 00:00:00 (procedure) [code = [facility] 13147263] Future Scheduled Test 2019-11-[address] [facility] 00:00:00 (procedure) [code = [facility] 21583875] Future Scheduled Test 2019-11-[address] [facility] 00:00:00 (procedure) [code = [facility] 83166991] Future Scheduled Test 2011-01-02 MEDICARE ANNUAL [facility] [...] Center COVID-19 VACCINE (#1)] Future Scheduled Test 1985 Fluoride Varnish [...] Future Scheduled Test 1985 Fluoride Varnish [facility] 00:00:00 [code = Fluoride Varnish] Future Appointment 2022-04-06 Nolan Del Valle [facility] 00:00:00 [place] [address] Encounters Start End Encounter Admission Attending Care Care Encounter Source Date/Time Date/Time Type Type Clinicians Facility Department ID 2022-02-08 Outpatient [facility] [id number] [place] 12:40:13 [id number] [facility] 2022-01-25 Outpatient [facility] [id number] [place] 13:48:30 [id number] [facility] 2022-01-15 Outpatient DIAMOND, MHFB MHFB [id number] FB 09:20:35 WANDA 2022-05-03 2022-05-03 Outpatient SG, [facility] [id number] [place] 00:00:00 00:00:00 KAMILLE Healaron h 2022-04-05 2022-04-05 Outpatient SG, [facility] [id number] [place] 00:00:00 00:00:00 KAMILLE Healt h 2022-04-02 2022-04-02 Outpatient [facility]od PRIV PRIV [id number] [facility] 00:00:00 00:00:00 d_J [id number] Medica l 2022-03-25 2022-03-25 Outpatient [facility] PRIV PRIV [id number] [facility] 00:00:00 00:00:00 d_J [id number] Medica l 2022-03-23 2022-03-23 Outpatient [facility]Tod PRIV PRIV 247 [id number] [facility] 00:00:00 00:00:00 d_J [id number] Medica l 2022-03-23 2022-03-23 Mariela [facility] 920 [facility] 00:00:00 00:00:00 JEANIE Linares: Health - Med ical [address] [address] , Ph. 2022-03-22 2022-03-22 Damir Umana [facility] [id number] [facility] 00:00:00 00:00:00 Lizbeth [facility] - Med ical : [address] [address] , Ph. 2022-03-16 2022-03-16 Mariela [facility] [id number] [facility] 00:00:00 00:00:00 JEANIE Linares: Health - Med ical [address] [address] , Ph. 2022-03-12 2022-03-12 Outpatient [facility]Tod PRIV PRIV [id number] [facility] 00:00:00 00:00:00 d_J [id number] Medica l 2022-03-05 2022-03-05 Outpatient ANJANA Linares [id number] c-3 00:00:00 00:00:00 Mariela [id number] 2022-03-05 2022-03-05 [facility] [id number] [facility] 00:00:00 00:00:00 JEANIE Linares: Health - Med ical [address] [address] , Ph. 2022-03-02 2022-03-02 Outpatient ANJANA Linares [facility] [id number] e-2 00:00:00 00:00:00 Mariela [id number]-b [id number] 2022-03-02 2022-03-02 [facility] [id number] [facility] 00:00:00 00:00:00 JEANIE Linares: Health - Med ical [address] [address] , Ph. 2022-02-28 2022-02-28 Outpatient GC_[facility]_Tod PRIV PRIV [id number] [facility] 00:00:00 00:00:00 d_J [id number] Medica l 2022-02-25 2022-02-25 Outpatient ANJANA Nieves PRIV [id number] 00:00:00 00:00:00 Damir Umana [id number]-11ed-a [id number] 2022-02-25 2022-02-25 Damir Umana [facility] - [facility] [id number] [facility] 00:00:00 00:00:00 Lizbeth [facility] - Med ical MD: [address] [address] , Ph. 2022-02-23 2022-02-23 Outpatient Vijay PRIV PRIV [id number] e-[id number] 00:00:00 00:00:00 Mariela fulton7-11ed-b [id number] 2022-02-23 2022-02-23 Mariela [facility] [id number] [facility] 00:00:00 00:00:00 JEANIE Linares: Health - Med ical [address] [address] , Ph. 2022-02-19 2022-02-19 Outpatient [facility]_Tod PRIV PRIV [id number] [facility] 00:00:00 00:00:00 d_J [id number] Medica l 2022-02-19 2022-02-19 Mariela [facility] [id number] [facility] 00:00:00 00:00:00 JEANIE Linares: Health - Med ical [address] [address] , Ph. 2022-02-19 2022-02-19 Outpatient Vijay, PRIV PRIV [id number] 00:00:00 00:00:00 Mariela [id number]-9 [id number] 2022-02-18 2022-02-18 Outpatient [facility]_Tod PRIV PRIV 247 [id number] [facility] 00:00:00 00:00:00 d_J [id number] Medica l 2022-01-26 2022-02-16 Inpatient U [facility] [id number] Memoria 14:02:00 21:42:00 RITSCOTTYJ l [place] [facility] l 2022-01-26 2022-02-16 Outpatient José [facility] [id number] 14:02:00 21:42:00 Ritubaldo 07 2022-02-02 2022-02-02 Outpatient SARAI, [facility] [id number] [place] 00:00:00 00:00:00 [facility] 2022-01-18 2022-01-26 Inpatient E HOLLAND, BL MED [id number] BL 10:31:00 12:59:00 ARVIND 2022-01-16 2022-01-26 Outpatient Sajja, MHPL PL [id number] 575 07:55:41 12:59:00 Arvind 2022-01-16 2022-01-26 Outpatient Sajja, PL PL [id number] 575 07:55:41 12:59:00 Arvind 07 2022-01-16 2022-01-16 Outpatient Ajibade, PL PL [id number] 07:55:41 07:55:41 [facility] 2022-01-12 2022-01-12 Emergency ER [id number] [facility] 16:19:00 17:42:00 [facility] 2022-01-12 2022-01-12 Emergency Marissa, [facility] [id number] 16:19:00 17:42:00 [facility] 2022-01-12 2022-01-12 Emergency ER Marissa, [facility] [id number] 16:19:00 17:42:00 [facility] 2022-01-12 2022-01-12 Travel [facility] [id number] [facility] 00:00:00 00:00:00 [facility] 2022-01-12 2022-01-12 Travel [facility] [id number] [facility] 00:00:00 00:00:00 [facility] 2022-01-08 2022-01-08 Emergency Zain Degroot HCAPM BUSHRA LA00 [id number] [facility] 12:40:00 18:44:00 95 [facility] 2022-01-08 2022-01-08 Emergency Zain Degroot HCAPM HCAPM LA61 [facility] 12:40:00 18:44:00 [id number] [facility] 2022-01-07 2022-01-07 Orders Betty, [facility] [id number] [place] 00:00:00 00:00:00 Only [facility] 2021-12-23 2021-12-23 Outpatient SARAI [facility] [id number] [place] 12:11:26 12:16:15 [facility] 2021-12-23 2021-12-23 Office Sarai, [facility] [id number] [place] 11:00:00 12:16:02 [facility] Kale Carlinaron 2021-12-23 2021-12-23 Outpatient SARAI, [facility] [id number] [place] 00:00:00 00:00:00 [facility] 2021-12-23 2021-12-23 Orders Sarai, [facility] [id number] [place] 00:00:00 00:00:00 Only Annie Abreu 2021-12-02 2021-12-16 Emergency Kym Gutierrez [facility] [id number] [place] 16:49:00 11:54:00 Marla Bai Joslyn W Mutucumarana, Charmaine P 2021-12-15 2021-12-15 Outpatient [facility] [id number] [place] 11:10:10 11:58:48 Health 2021-12-14 2021-12-14 Outpatient [facility] [id number] [place] 15:58:03 15:58:08 Health 2021-12-14 2021-12-14 Outpatient [facility] [id number] [place] 13:56:45 14:11:44 Health 2021-12-10 2021-12-10 Outpatient [facility] [id number] [place] 08:04:54 09:52:59 [facility] 2021-12-09 2021-12-09 Outpatient [facility] [id number] [place] 14:31:10 16:27:35 [facility] 2021-12-05 2021-12-05 Outpatient [facility] [id number] [place] 15:47:31 16:10:42 Health 2021-12-05 2021-12-05 Outpatient PETER, [facility] [id number] [place] 00:00:00 00:00:00 [facility] 2021-12-02 2021-12-02 Emergency LION [facility] [id number] [place] 17:25:24 18:26:13 [facility] 2021-12-02 2021-12-02 Outpatient 1 ROME, [facility] [id number] [place] 16:49:00 16:49:00 [facility] 2021-12-01 2021-12-01 Outpatient Jalal, MHSL MHSL [id number] 06:20:00 12:40:[address] [place] [address] 2021-12-01 2021-12-01 Outpatient JALAL, MHFB MHFB [id number] MHFB 06:20:00 12:40:00 WANDA 2021-12-01 2021-12-01 Outpatient Jalal, MHSL MHSL [id number] 08:00:00 08:00:00 Wanda 05 [place] 2021-11-25 2021-11-25 Emergency ER OJIAKU, [facility] Emergency [id number] [facility] 16:20:00 16:55:00 [facility] 2021-11-25 2021-11-25 Emergency Otonyu, [facility] [id number] 16:20:00 16:55:00 [facility] 2021-11-25 2021-11-25 Emergency Ojose f, [facility] [id number] 16:20:00 16:55:00 [facility] 2021-07-31 2021-07-31 Travel [facility] [id number] [facility] 00:00:00 00:00:00 [facility] 2021-07-31 2021-07-31 Travel [facility] [id number] [facility] 00:00:00 00:00:00 [facility] 2021-07-30 2021-07-30 Emergency ER Stone, Brii [facility] [id number] 19:14:00 21:58:00 [facility] 2021-07-30 2021-07-30 Emergency ER STONE, BRII SLS Emergency 20 [id number] [facility] 19:14:00 21:58:00 2021-07-30 2021-07-30 Emergency Stone, Brii [facility] [id number] 19:14:00 21:58:00 [facility] 2018-07-01 2018-07-01 Outpatient Jitendra, MHPL MHPL [id number] 18:27:00 22:12:00 Jazmin Lucero 2018-06-27 2018-06-29 Outpatient Hammonds, PL MHPL [id number] 575 20:48:00 19:05:00 Ugochi 04 Kianna 2017-12-30 2017-12-30 Outpatient Iheme, Rony PL PL [id number] 10:30:00 12:31:00 U 03 2016-10-04 2016-10-08 Outpatient Carrie, PL PL [id number] 13:28:00 15:10:00 Annette 02 Yasmin 2016-04-17 2016-04-17 Outpatient Savita, MHPL PL [id number] 10:11:00 13:54:00 Ambica 2015-07-17 2015-07-18 Outpatient Vijay [facility] [id number] 14:28:00 12:05:00 King 2015-07-17 2015-07-17 Outpatient MAMADOU ShieldsSE [facility] [id number] 575 11:42:00 14:15:00 Nadim B 00 Results Test Description Test Time Test Comments Results Result Comments Source B-TYPE NATRIURETIC FACTOR (BNP) 2022-01-12 17:12:09 Test Item Value Reference Range Interpretation Comme nts B-TYPE NATRIURETIC PEPTIDE (BEAKER) (test code = 700) 69 pg/mL 0-100 Oven Attendant ID - [id number] METABOLIC [id number] 17:06:08 Test Item Value Reference Range Interpretation [...] S NOT APPLICABLE FOR DIALYSIS PATIEN TS. Oven Attendant ID - HTZBX447Hsdalxcd ID - IUUBT810Pqrxjnlq ID - RFERI474Eyjpixef ID - MDKPY037Znhruccq ID - IZMDJ959Eaeweomj ID - TWZNO556Zhoaebbf ID - MKUPI104Wdtqipyj ID - LXRVI042Actzhrxa ID - HKLZK652Ryiluagm ID - QTYWI432Grtwalsr ID - TCSXQ008Dqayuzwf ID - UOFTS558Zytrectg ID - MTQPH805Rfpcpsou ID - IMZHI159Hljmlcdn ID - ZSFKC287Yagrhpqb ID - MYXRK875Vxrkovnv ID - ZSDMX803Nzndukew ID - CUMYM351Rxhcwrec ID - XJDRY908FVS W/PLT COUNT & AUTO [id number] 16:49:25 Test Item Value Reference Range Interpretation [...] code = 2801) - CTA CHEST FOR [id number] 18:27:00 [facility] 1985 Sex: M Name: VERÓNICA NUNN [facility] : 1985 Age/S: 36 / M [address] Unit #: [id number] Loc: [place] [address] Phys: Zain David DO Acct: [id number] Dis Date: Status: REG ER PHONE #: [phone] Exam Date: 01/08/2022 1724 FAX #: Reason: evaluate for PE EXAMS: CPT: [id number] [place] [address] EXAM: - CTA CHEST FOR PE LOCATION: [...] NUNN : 1985 Age/S: 36 / M [address] Unit #: [id number] Loc: [place] [id number] Phys: Zain David DO Acct: [id number] Dis Date: Status: REG ER PHONE #: [phone] Exam Date: 01/08/2022 1807 FAX #: Reason: evaluate for PE EXAMS: CPT: [id number] [place] [address] (Continued) at 1827 Reported and signed by: Ba Anaya M.D. CC: Zain David DO Technologist:Abram Prasad, (R) CTDI: DLP: Trnscb Date/Time: 01/08/2022 (182) [email or web address] Orig Print D/T: S: 01/08/2022 (1830) PAGE2 Signed Report- [facility] VEIN [id number] 16:52:00 [facility] 1985 Sex: M Name: VERÓNICA NUNN [place] : 1985 Age/S: 36 / M [address] Unit #: [id number] Loc: [place] [address] Phys: Zain David DO Acct: [id number] Dis Date: Status: REG ER PHONE #: [phone] Exam Date: 01/08/2022 1648 FAX #: Reason: swelling EXAMS: CPT: [id number] DUP VEIN COMFORT 36367 EXAM: - DUP VEIN COMFORT LOCATION: H65 [...] lower extremities. Electronically Signed by Dulce Maria Pablo 01/08/2022 at 1652 Reported and signed by: Rolo Suero D.O. CC: Zain David DO Technologist: Kianna Cardenas Trnscb Date/Time: 01/08/2022 (1651) [email or web address] PAGE 1 Signed Report Name: GIGI NUNN [place] : 1985 Age/S: 36 / M [address] [facility] Unit #: [id number] Loc: [place] [address] Phys: Zain David DO Acct: [id number] Dis Date: Status: REG ER PHONE #: [phone] Exam Date: 01/08/2022 1647 FAX #: Reason: swelling EXAMS: CPT: [id number] DUP VEIN COMFORT 25763 (Continued) Orig P rint D/T: S: 01/08/2022 (1655) Probe: PAGE 2 Signed ReportTROP-I HIGH [id number] 15:07:00 Test Item Value Reference Range Interpretation [...] varyby method. Completed by Nursing: NOBASIC METABOLIC [id number] 15:07:00 Test Item Value Reference Range Interpretation [...] N Completed by Nursing: NONT PRO-BRAIN NATRIURETIC [id number] 15:07:00 Test Item Value Reference Range Interpretation Comments NT PRO-BRAIN NATRIURETIC PEPTI 163 PG/ML 0-100 H (test code = PROBNP) Completed by Nursing: [id number] 15:04:00 Test Item Value Reference Range Interpretation [...] STS AND APPROPRIATECLIN ICAL EUALUATIONS. HEPATIC FUNCTION [id number] 14:58:00 Test Item Value Reference Range Interpretation [...] 50-136 N code = ALKP) CBC W/O [id number] 14:41:00 Test Item Value Reference Range Interpretation [...] 7.0-9.6 H MPV) - XR CHEST 1 [id number] 14:24:00 [facility] 1985 Sex: M Name: VERÓNICA NUNN [facility] : 1985 Age/S: 36 / M [address] Unit #: [id number] Loc: [place] [address] Phys: Zain David DO Acct: [id number] Dis Date: Status: REG ER PHONE #: [phone] Exam Date: 01/08/2022 1418 FAX #: Reason: chest pain EXAMS: CPT: [id number] XR CHEST 1 V 10351 Fluoro Time: DAP (Gy m2): Air Kerma (mGy): Site ID: [id number] HISTORY: Chest pain COMPARISON: None FINDINGS: Patchy bibasilar infiltrates may reflect pneumonia or atelectasis. The heart and pulmonary vasculature is normal. Osseous structures are unremarkable. IMPRESSION: Patchy bibasilar infiltrates may reflect pneumonia or atelectasis at 1424 Reported and signed by: Ramyundo Delacruz M.D. CC: Zain David DO PAGE 1 Signed Report Name: VERÓNICA NUNN [place] : 1985 Age/S: 36 / M [address] Unit #: [id number] Loc: [place] [address] Phys: Zain David DO Acct: [id number] Dis Date: Status: REG ER PHONE #: [phone] Exam Date: 01/08 1418 FAX #: Reason: chest pain EXAMS: CPT: [id number] XR CHEST 1 V 69716 Fluoro Time: DAP (Gy m2): Air Kerma (mGy): (Continued) Technologist: Vladislav Moreno, RT(R)(CT) Trnscb Date/Time: 01/08/2022 (1423) [email or web address] Orig Print D/T: S: 01/08/2022 (3871) PAGE 2 [facility]igned [facility] 2021-12-15 10:55:52 Test Item Value Reference Range Interpretation Comments Glucose POC (test code = 96081988) 79 mg/dL 74-106 Lab Interpretation (test code = Normal 82579-7) [facility] [id number] 10:55:52 Test Item Value Reference Range Interpretation Comments Glucose POC (test code = 16414602) 79 mg/dL 74-106 Lab Interpretation (test code = Normal 33295-5) [facility]SE P[facility] docked atfwsl1532-03-65 10:55:52 Test Item Value Reference Range Interpretation Comments Glucose POC (test code = 35408164) 79 mg/dL 74-106 Lab Interpretation (test code = Normal 73465-0) [facility]SE [facility] docked [id number] 10:55:52 Test Item Value Reference Range Interpretation Comments Glucose POC (test code = 57182222) 79 mg/dL 74-106 Lab Interpretation (test code = Normal 99593-2) [facility]SE P[facility] docked [id number] 10:55:52 Test Item Value Reference Range Interpretation Comments Glucose POC (test code = 34377213) 79 mg/dL 74-106 Lab Interpretation (test code = Normal 09373-4) [facility] docked [id number] 10:55:52 Test Item Value Reference Range Interpretation Comments Glucose POC (test code = 65875655) 79 mg/dL 74-106 Lab Interpretation (test code = Normal 60842-9) [facility] [id number] 10:55:52 Test Item Value Reference Range Interpretation Comments Glucose POC (test code = 33298225) 79 mg/dL 74-106 Lab Interpretation (test code = Normal 20686-9) [facility] GLUCOSE POC docked [id number] 10:55:52 Test Item Value Reference Range Interpretation Comments Glucose POC (test code = 20148312) 79 mg/dL 74-106 Lab Interpretation (test code = Normal 42674-2) [place] [address] Lead [id number] 14:05:1912 LEAD EKG FOR [facility] Test Date: 3025-91-70Jpz Name: VERÓNICA CLARK Department: 5CMSPatient ID: [id number] Room: Gender: Benefits Representative: SHIOB: 1985 Requested By: MISAEL Lacyer Number: [id number] Reading MD: Rosa Santa MeasurementsIntervals [place] Rate: 90 P: 73PR: 142 QRS: 90QRSD: 104 T: 69QT: 345 QTc: [address] ELEVATION [0.05+ mV ST ELEVATION]Electronically Signed On 12-14-2021 14:05:45 CDT by [employer] Lead [id number] 14:05:1912 LEAD EKG FOR [facility] Test Date: 6949-89-54Pnw Name: VERÓNICA ZAMORAJim Department: 5CMSPatient ID: [id number] Room: Gender: Benefits Representative: LAURELIEDOB: 1985 Requested By: MISAEL Lacyer Number: [id number] Reading MD: Rosa Santa MeasurementsIntervals [place] Rate: 90 P: 73PR: 142 QRS: 90QRSD: 104 T: 69QT: 345 QTc: 393 [address] ELEVATION [0.05+ mV ST ELEVATION]Electronically Signed On 12-14-2021 14:05:45 CDT by [employer] Lead [id number] 14:05:1912 LEAD EKG FOR [facility] Test Date: 1090-36-52Lks Name: VERÓNICA BANKSKEITH Department: 5CMSPatient ID: [id number] Room: Gender: M Benefits Representative: ANNIEDOB: 1985 Requested By: MISAEL VELÁZQUEZ EOrder Number: [id number] Reading MD: Rosa Santa MeasurementsIntervals [place] Rate: 90 P: 73PR: 142 QRS: 90QRSD: 104 T: 69QT: 345 QTc: 393 [address] ELEVATION [0.05+ mV ST ELEVATION]Electronically Signed On 12-14-2021 14:05:45 CDT by [employer] HospitalmotionBEAT inc12 Lead [id number] 14:05:1912 LEAD EKG FOR [facility] Test Date: 3071-43-77Dky Name: VERÓNICA AMBER Department: 5CMSPatient ID: [id number] Room: Gender: M Benefits Representative: ANNIEDOB: 1985 Requested By: MISAEL VELÁZQUEZ EOrder Number: [id number] Reading MD: Rosa Santa MeasurementsIntervals [place] Rate: 90 P: 73PR: 142 QRS: 90QRSD: 104 T: 69QT: 345 QTc: 393 [address] ELEVATION [0.05+ mV ST ELEVATION]Electronically Signed On 12-14-2021 14:05:45 CDT by [employer]motion[facility] inc12 Lead [id number] 14:05:1912 LEAD EKG FOR [facility] Test Date: 5646-70-45Uym Name: VERÓNICA CLARK Department: 5CMSPatient ID: [id number] Room: Gender: M Benefits Representative: ANNIEDOB: 1985 Requested By: MISAEL VELÁZQUEZ EOrder Number: [id number] Reading MD: Rosa Santa MeasurementsIntervals [place] Rate: 90 P: 73PR: 142 QRS: 90QRSD: 104 T: 69QT: 345 QTc: 393 [address] ELEVATION [0.05+ mV ST ELEVATION]Electronically Signed On 12-14-2021 14:05:45 CDT by RosaKirkland NorthSouthern [facility] Rehabilitation HospitalmotionBEAT inc12 Lead [id number] 14:05:1912 LEAD EKG FOR [facility] Test Date: 2769-49-83Quz Name: VERÓNICA CLARK Department: 5CMSPatient ID: [id number] Room: Gender: M Benefits Representative: ANNGISSELLEOB: 1985 Requested By: IMSAEL Brito Number: [id number] Reading MD: Rosa Santa MeasurementsIntervals [place] Rate: 90 P: 73PR: 142 QRS: 90QRSD: 104 T: 69QT: 345 QTc: 393 [address] ELEVATION [0.05+ mV ST ELEVATION]Electronically Signed On 12-14-2021 14:05:45 CDT by SunPodsp[facility] memorial hospitalCreateTripsSouthern [facility] Rehabilitation HospitalmotionBEAT inc12 Lead [id number] 14:05:1912 LEAD EKG FOR [facility] Test Date: 7771-80-42Qdi Name: VERÓNICA CLARK Department: 5CMSPatient ID: [id number] Room: Gender: M Benefits Representative: ANNIEDOB: 1985 Requested By: MISAEL Brito Number: [id number] Reading MD: Rosa Santa MeasurementsIntervals [place] Rate: 90 P: 73PR: 142 QRS: 90QRSD: 104 T: 69QT: 345 QTc: [address] ELEVATION [0.05+ mV ST ELEVATION]Electronically Signed On 12-14-2021 14:05:45 CDT by [employer] HospitalmotionBEAT inc12 Lead [id number] 14:05:1912 LEAD EKG FOR [facility] Test Date: 1255-17-94Avm Name: VERÓNICA CLARK Department: 5CMSPatient ID: [id number] Room: Gender: M Benefits Representative: ANNIEDOB: 1985 Requested By: MISAEL Brito Number: [id number] Reading MD: Rosa Santa MeasurementsIntervals [place] Rate: 90 P: 73PR: 142 QRS: 90QRSD: 104 T: 69QT: 345 QTc: [address] ELEVATION [0.05+ mV ST ELEVATION]Electronically Signed On 6-13-2022 14:05:45 CDT by Rosa [facility] CenterV 1+2 Ab+HIV1 p24 Ag SerPl Ql [id number] 11:54:50 Test Item Value Reference Range Interpretation Comments HIV 1+2 Ab+HIV1 p24 Ag SerPl Ql IA NEGATIVE Negative (test code = 67527-2) Coronavirus, CoVID-19, [id number] 02:25:42 Test Item Value Reference Interpretation Comments Range COVID-19 Not Detected Not Detected INTERPRETATION: (SARS-COV-2) (test No detect able code = 49434-3) levels of SARS-CoV-2 Coronavirus (COVID-19) were present [...] its performance characteristics were verified by the [facility] laboratory and is authorized for clinical diagnostic use. This laboratory is certified under the Clinical Laboratory Improvement Amendments (CLIA) as qualified to perform high complexity clinical laboratory testing. Lab Interpretation Normal (test code = 38704-8) [facility], [id number] 02:25:42 Test Item Value Reference Interpretation Comments Range COVID-19 Not Detected Not Detected INTERPRETATION: (SARS-COV-2) (test No detect able code = 60785-0) levels of SARS-CoV-2 Coronavirus (COVID-19) were present [...] its performance characteristics were verified by the [facility] laboratory and is authorized for clinical diagnostic use. This laboratory is certified under the Clinical Laboratory Improvement Amendments (CLIA) as qualified to perform high complexity clinical laboratory testing. Lab Interpretation Normal (test code = 02633-9) [facility], [id number] 02:25:42 Test Item Value Reference Interpretation Comments Range COVID-19 Not Detected Not Detected INTERPRETATION: (SARS-COV-2) (test No detect able code = 82483-4) levels of SARS-CoV-2 Coronavirus (COVID-19) were present [...] its performance characteristics were verified by the [facility] laboratory and is authorized for clinical diagnostic use. This laboratory is certified under the Clinical Laboratory Improvement Amendments (CLIA) as qualified to perform high complexity clinical laboratory testing. Lab Interpretation Normal (test code = 13931-0) Talha Shepherdronavirus, CoVID-19, [id number] 02:25:42 Test Item Value Reference Interpretation Comments Range COVID-19 Not Detected Not Detected INTERPRETATION: (SARS-COV-2) (test No detect able code = 96916-5) levels of SARS-CoV-2 Coronavirus (COVID-19) were present [...] its performance characteristics were verified by the [facility] molecular diagnostics laboratory and is authorized for clinical diagnostic use. This laboratory is certified under the Clinical Laboratory Improvement Amendments (CLIA) as qualified to perform high complexity clinical laboratory testing. Lab Interpretation Normal (test code = 93144-7) Talha Shepherdronavirus, CoVID-19, [id number] 02:25:42 Test Item Value Reference Interpretation Comments Range COVID-19 Not Detected Not Detected INTERPRETATION: (SARS-COV-2) (test No detect able code = 29547-8) levels of SARS-CoV-2 Coronavirus (COVID-19) were present [...] its performance characteristics were verified by the [facility] laboratory and is authorized for clinical diagnostic use. This laboratory is certified under the Clinical Laboratory Improvement Amendments (CLIA) as qualified to perform high complexity clinical laboratory testing. Lab Interpretation Normal (test code = 24395-0) [facility], [id number] 02:25:42 Test Item Value Reference Interpretation Comments Range COVID-19 Not Detected Not Detected INTERPRETATION: (SARS-COV-2) (test No detect able code = 27349-9) levels of SARS-CoV-2 Coronavirus (COVID-19) were present [...] its performance characteristics were verified by the [facility] laboratory and is authorized for clinical diagnostic use. This laboratory is certified under the Clinical Laboratory Improvement Amendments (CLIA) as qualified to perform high complexity clinical laboratory testing. Lab Interpretation Normal (test code = 08632-6) Talha Ortegaavirus, CoVID-19, [id number] 02:25:42 Test Item Value Reference Interpretation Comments Range COVID-19 Not Detected Not Detected INTERPRETATION: (SARS-COV-2) (test No detect able code = 99122-6) levels of SARS-CoV-2 Coronavirus (COVID-19) were present [...] its performance characteristics were verified by the [facility] laboratory and is authorized for clinical diagnostic use. This laboratory is certified under the Clinical Laboratory Improvement Amendments (CLIA) as qualified to perform high complexity clinical laboratory testing. Lab Interpretation Normal (test code = 76571-4) Talha Ortegaavirus, CoVID-19, [id number] 02:25:42 Test Item Value Reference Interpretation Comments Range COVID-19 Not Detected Not Detected INTERPRETATION: (SARS-COV-2) (test No detect able code = 83140-4) levels of SARS-CoV-2 Coronavirus (COVID-19) were present [...] its performance characteristics were verified by the [facility] laboratory and is authorized for clinical diagnostic use. This laboratory is certified under the Clinical Laboratory Improvement Amendments (CLIA) as qualified to perform high complexity clinical laboratory testing. Lab Interpretation Normal (test code = 23518-3) [facility]-CoV-2 RNA Resp Ql YOSHI+[id number] 02:25:42 Test Item Value Reference Range Interpretation Comments Hospitalized? (test No code = 41720-6) ICU? (test code = No 16789-1) Symptomatic as defined No by CDC? (test code = 12952-2) Employed in No Healthcare? (test code = 13041-9) Resident in a No congregate care setting (including nursing homes, residential care for people with intellectual and developmental disabilities, psychiatric treatment facilities, group homes, board and care homes, homeless skilled nursing, foster care or other): (test code = 76018-8) SARS-CoV-2 RNA Resp Ql NOT DETECTED Not Detected INTER PRETATION: No YOSHI+probe (test code = detec table levels 58522-4) of SARS-CoV-2 Coronavirus (COVID-19) were present in [...] its performance characteristics were verified by the [facility] laboratory and is authorized for clinical diagnostic use. This laboratory is certified under the Clinical Laboratory Improvement Amendments (CLIA) as qualified to perform high complexity clinical laboratory testing.POCT BMP POC docked device 2021-12-02 20:33:07 Test Item Value Reference Range Interpretation Comments Sodium POC (test code = 134 mmol/L 136-145 L 87346419) Potassium POC (test code 4.2 mmol/L 3.5-5.1 = 28886648) Chloride POC (test code 103 mmol/L 98-107 = 44375230) TCO2 POC (test code = 28 mmol/L -32 Physic alden Notified 08094398) Urea Nitrogen POC (test 12 mg/dL 7-18 code = 26512988) Glucose POC (test code = 76 mg/dL 74-106 85423236) Hemoglobin POC (test 7.1 g/dL 12-16 L code = 68823144) Hematocrit POC (test 21.0 % 37.0-47.0 L code = 86070127) Lab Interpretation (test Abnormal code = 95606-6) [facility] BMP POC docked [id number] 20:33:07 Test Item Value Reference Range Interpretation Comments Sodium POC (test code = 134 mmol/L 136-145 L 17278497) Potassium POC (test code 4.2 mmol/L 3.5-5.1 = 94331810) Chloride POC (test code 103 mmol/L 98-107 = 99143449) TCO2 POC (test code = 28 mmol/L 21-32 Physic alden Notified 07456366) Urea Nitrogen POC (test 12 mg/dL 7-18 code = 68092502) Glucose POC (test code = 76 mg/dL 74-106 42125828) Hemoglobin POC (test 7.1 g/dL 12-16 L code = 85667372) Hematocrit POC (test 21.0 % 37.0-47.0 L code = 07600081) Lab Interpretation (test Abnormal code = 81153-0) [facility] POC docked [id number] 20:33:07 Test Item Value Reference Range Interpretation Comments Sodium POC (test code = 134 mmol/L 136-145 L 45045449) Potassium POC (test code 4.2 mmol/L 3.5-5.1 = 94470476) Chloride POC (test code 103 mmol/L 98-107 = 62658402) TCO2 POC (test code = 28 mmol/L 21-32 Physic alden Notified 86617002) Urea Nitrogen POC (test 12 mg/dL 7-18 code = 97750834) Glucose POC (test code = 76 mg/dL 74-106 85671854) Hemoglobin POC (test 7.1 g/dL 12-16 L code = 71221386) Hematocrit POC (test 21.0 % 37.0-47.0 L code = 43403421) Lab Interpretation (test Abnormal code = 43812-2) [facility] POC docked [id number] 20:33:07 Test Item Value Reference Range Interpretation Comments Sodium POC (test code = 134 mmol/L 136-145 L 97470804) Potassium POC (test code 4.2 mmol/L 3.5-5.1 = 48119062) Chloride POC (test code 103 mmol/L 98-107 = 45931616) TCO2 POC (test code = 28 mmol/L 21-32 Physic alden Notified 23371328) Urea Nitrogen POC (test 12 mg/dL 7-18 code = 96539330) Glucose POC (test code = 76 mg/dL 74-106 11850561) Hemoglobin POC (test 7.1 g/dL 12-16 L code = 41701200) Hematocrit POC (test 21.0 % 37.0-47.0 L code = 96228031) Lab Interpretation (test Abnormal code = 12407-3) [facility] POC docked [id number] 20:33:07 Test Item Value Reference Range Interpretation Comments Sodium POC (test code = 134 mmol/L 136-145 L 46323285) Potassium POC (test code 4.2 mmol/L 3.5-5.1 = 53459601) Chloride POC (test code 103 mmol/L 98-107 = 55614920) TCO2 POC (test code = 28 mmol/L - Physic alden Notified 44320515) Urea Nitrogen POC (test 12 mg/dL 7-18 code = 50947171) Glucose POC (test code = 76 mg/dL 74-106 23841203) Hemoglobin POC (test 7.1 g/dL 12-16 L code = 81547674) Hematocrit POC (test 21.0 % 37.0-47.0 L code = 12909332) Lab Interpretation (test Abnormal code = 87644-7) [facility] POC docked [id number] 20:33:07 Test Item Value Reference Range Interpretation Comments Sodium POC (test code = 134 mmol/L 136-145 L 59506926) Potassium POC (test code 4.2 mmol/L 3.5-5.1 = 96848571) Chloride POC (test code 103 mmol/L 98-107 = 72499341) TCO2 POC (test code = 28 mmol/L Physic alden Notified 08327269) Urea Nitrogen POC (test 12 mg/dL 7-18 code = 84102166) Glucose POC (test code = 76 mg/dL 74-106 63702832) Hemoglobin POC (test 7.1 g/dL 12-16 L code = 13402526) Hematocrit POC (test 21.0 % 37.0-47.0 L code = 61321401) Lab Interpretation (test Abnormal code = 08993-0) [facility] POC docked [id number] 20:33:07 Test Item Value Reference Range Interpretation Comments Sodium POC (test code = 134 mmol/L 136-145 L 20888813) Potassium POC (test code 4.2 mmol/L 3.5-5.1 = 22087646) Chloride POC (test code 103 mmol/L 98-107 = 74946044) TCO2 POC (test code = 28 mmol/L -32 Physic alden Notified 25452149) Urea Nitrogen POC (test 12 mg/dL 7-18 code = 58364479) Glucose POC (test code = 76 mg/dL 74-106 02020468) Hemoglobin POC (test 7.1 g/dL 12-16 L code = 42073841) Hematocrit POC (test 21.0 % 37.0-47.0 L code = 76357770) Lab Interpretation (test Abnormal code = 16666-9) [facility] BMP POC docked [id number] 20:33:07 Test Item Value Reference Range Interpretation Comments Sodium POC (test code = 134 mmol/L 136-145 L 34982000) Potassium POC (test code 4.2 mmol/L 3.5-5.1 = 93175860) Chloride POC (test code 103 mmol/L 98-107 = 09805252) TCO2 POC (test code = 28 mmol/L Physic alden Notified 10191713) Urea Nitrogen POC (test 12 mg/dL 7-18 code = 31226719) Glucose POC (test code = 76 mg/dL 74-106 46696875) Hemoglobin POC (test 7.1 g/dL 12-16 L code = 38509582) Hematocrit POC (test 21.0 % 37.0-47.0 L code = 72191091) Lab Interpretation (test Abnormal code = 77213-9) [facility] CREATININE POC docked [id number] 20:32:51 Test Item Value Reference Range Interpretation Comments Creatinine POC (test 0.5 mg/dL 0.6-1.3 L Physici an Notified code = 49038713) eGFR If non- Am >120 See_Comment [Aut omated message] (test code = 93427542) The s ystem which generated this result transmit gregory reference range : >=90 mL/min/1.7 3 m2. The reference r sravanthi was not used to interpret this result as normal/abnormal . eGFR If Am (test >120 See_Comment [A utomated message] code = 23742679) The system which generated this result transmit gregory reference range : >=90 mL/min/1.7 3 m2. The reference r sravanthi was not used to interpret this result as normal/abnormal . Lab Interpretation (test Abnormal code = 27638-0) [facility] CREATININE POC docked [id number] 20:32:51 Test Item Value Reference Range Interpretation Comments Creatinine POC (test 0.5 mg/dL 0.6-1.3 L Physici an Notified code = 85537786) eGFR If non- Am >120 See_Comment [Aut omated message] (test code = 96857120) The s ystem which generated this result transmit gregory reference range : >=90 mL/min/1.7 3 m2. The reference r sravanthi was not used to interpret this result as normal/abnormal . eGFR If Am (test >120 See_Comment [A utomated message] code = 22023888) The system which generated this result transmit gregory reference range : >=90 mL/min/1.7 3 m2. The reference r sravanthi was not used to interpret this result as normal/abnormal . Lab Interpretation (test Abnormal code = 90897-1) [facility] CREATININE POC docked [id number] 20:32:51 Test Item Value Reference Range Interpretation Comments Creatinine POC (test 0.5 mg/dL 0.6-1.3 L Physici an Notified code = 70044775) eGFR If non- Am >120 See_Comment [Aut omated message] (test code = 45587092) The s ystem which generated this result transmit gregory reference range : >=90 mL/min/1.7 3 m2. The reference r sravanthi was not used to interpret this result as normal/abnormal . eGFR If Am (test >120 See_Comment [A utomated message] code = 93817478) The system which generated this result transmit gregory reference range : >=90 mL/min/1.7 3 m2. The reference r sravanthi was not used to interpret this result as normal/abnormal . Lab Interpretation (test Abnormal code = 92272-5) [facility] [id number] 20:32:51 Test Item Value Reference Range Interpretation Comments Creatinine POC (test 0.5 mg/dL 0.6-1.3 L Physici an Notified code = 73760987) eGFR If non- Am >120 See_Comment [Aut omated message] (test code = 45464072) The s ystem which generated this result transmit gregory reference range : >=90 mL/min/1.7 3 m2. The reference r sravanthi was not used to interpret this result as normal/abnormal . eGFR If Am (test >120 See_Comment [A utomated message] code = 92641059) The system which generated this result transmit gregory reference range : >=90 mL/min/1.7 3 m2. The reference r sravanthi was not used to interpret this result as normal/abnormal . Lab Interpretation (test Abnormal code = 70333-3) [facility] CREATININE POC docked [id number] 20:32:51 Test Item Value Reference Range Interpretation Comments Creatinine POC (test 0.5 mg/dL 0.6-1.3 L Physici an Notified code = 52932670) eGFR If non- Am >120 See_Comment [Aut omated message] (test code = 88771860) The s ystem which generated this result transmit gregory reference range : >=90 mL/min/1.7 3 m2. The reference r sravanthi was not used to interpret this result as normal/abnormal . eGFR If Am (test >120 See_Comment [A utomated message] code = 05566621) The system which generated this result transmit gregory reference range : >=90 mL/min/1.7 3 m2. The reference r sravanthi was not used to interpret this result as normal/abnormal . Lab Interpretation (test Abnormal code = 20632-4) [facility] CREATININE POC docked [id number] 20:32:51 Test Item Value Reference Range Interpretation Comments Creatinine POC (test 0.5 mg/dL 0.6-1.3 L Physici an Notified code = 77243443) eGFR If non- Am >120 See_Comment [Aut omated message] (test code = 55978779) The s ystem which generated this result transmit gregory reference range : >=90 mL/min/1.7 3 m2. The reference r sravanthi was not used to interpret this result as normal/abnormal . eGFR If Am (test >120 See_Comment [A utomated message] code = 40858689) The system which generated this result transmit gregory reference range : >=90 mL/min/1.7 3 m2. The reference r sravanthi was not used to interpret this result as normal/abnormal . Lab Interpretation (test Abnormal code = 72785-7) [facility] CREATININE POC docked [id number] 20:32:51 Test Item Value Reference Range Interpretation Comments Creatinine POC (test 0.5 mg/dL 0.6-1.3 L Physici an Notified code = 53265202) eGFR If non- Am >120 See_Comment [Aut omated message] (test code = 29066946) The s ystem which generated this result transmit gregory reference range : >=90 mL/min/1.7 3 m2. The reference r sravanthi was not used to interpret this result as normal/abnormal . eGFR If Am (test >120 See_Comment [A utomated message] code = 53308800) The system which generated this result transmit gregory reference range : >=90 mL/min/1.7 3 m2. The reference r sravanthi was not used to interpret this result as normal/abnormal . Lab Interpretation (test Abnormal code = 44360-8) [facility] CREATININE POC docked [id number] 20:32:51 Test Item Value Reference Range Interpretation Comments Creatinine POC (test 0.5 mg/dL 0.6-1.3 L Physici an Notified code = 59330653) eGFR If non- Am >120 See_Comment [Aut omated message] (test code = 57672029) The s ystem which generated this result transmit gregory reference range : >=90 mL/min/1.7 3 m2. The reference r sravanthi was not used to interpret this result as normal/abnormal . eGFR If Am (test >120 See_Comment [A utomated message] code = 05561026) The system which generated this result transmit gregory reference range : >=90 mL/min/1.7 3 m2. The reference r sravanthi was not used to interpret this result as normal/abnormal . Lab Interpretation (test Abnormal code = 37680-9) [facility]/[id number] 20:34:31 Test Item Value Reference Interpretation Comments [...] valves. Lab Interpretation Abnormal (test code = 63135-6) [id number] Test Item Value Reference Interpretation Comments [...] valves. Lab Interpretation Abnormal (test code = 36013-9) [id number] 20:34:31 Test Item Value Reference Interpretation Comments [...] valves. Lab Interpretation Abnormal (test code = 81539-9) [id number] 20:34:31 Test Item Value Reference Interpretation Comments [...] valves. Lab Interpretation Abnormal (test code = 78670-6) [id number] 20:34:31 Test Item Value Reference Interpretation Comments [...] valves. Lab Interpretation Abnormal (test code = 39114-8) [id number] 20:34:31 Test Item Value Reference Interpretation Comments [...] valves. Lab Interpretation Abnormal (test code = 63085-2) [id number] 20:34:31 Test Item Value Reference Interpretation Comments [...] valves. Lab Interpretation Abnormal (test code = 06532-6) [id number] 20:34:31 Test Item Value Reference Interpretation Comments [...] valves. Lab Interpretation Abnormal (test code = 54228-2) [id number] 20:34:31 Test Item Value Reference Interpretation Comments [...] valves. Lab Interpretation Abnormal (test code = 31231-8) [facility][id number] 20:34:31 Test Item Value Reference Range Interpretation Comments PROTIME (BEAKER) 12.2 seconds 9.3-12.0 H Final Infor mation (test code = 759) (Auto Outp ut) INR (BEAKER) (test 1.11 See_Comment Final Inf ormation code = 370) (Auto Output) [Automated mess age] The system [employer] generated this result transmitted ref erence range: <=5.90. The reference range was not used to int erpret this result as normal/abnormal . RECOMMENDED COUMADIN/WARFARIN INR THERAPY RANGESSTANDARD DOSE: 2.0 - 3.0 Includes: PROPHYLAXIS for venous thrombosis, systemic embolization; TREATMENT for venous thrombosis and/or pulmonary embolus.HIGH RISK: Target INR is 2.5-3.5 for patients with mechanical heart valves.CT, [id number] 20:32:00Unlisted Reason for Exam - Click Yes and Enter Reason Below->NoIs this for enterography?->NoWill this procedure require oral contrast?->No [facility] CLARK : 1985 Sex: MFINAL REPORT [...] MDReport Verified Date/Time: 07/30/2021 20:32:18 Reading Location: [facility] C0[facility] Transitional Reading Room Basic metabolic panel (Na, K+, Cl, CO2, Glu, Ca, BUN, Cr)2021-07-30 20:00:22 Test Item Value Reference Range Interpretation Comments Sodium (test code = 135 meq/L 669-106 6903-2) Potassium (test code = 4.2 meq/L 3.6-5.5 2823-3) Chloride (test code = 103 meq/L 98-106 2075-0) CO2 (test code = 24 meq/L 20-29 8-9) BUN (test code = 8 mg/dL 10-26 L 3094-0) Creatinine (test code 0.75 mg/dL 0.50-1.20 = 2160-0) Glucose (test code = 77 mg/dL 70-110 2345-7) Calcium (test code = 9.1 mg/dL 8.5-10.5 72512-2) EGFR (test code = 118 mL/min/1.73 [place] [address]-2) NOT ACCURATE CREATININE CLEARANCE IN PREDICTING GLOMERULAR FILTRATION RATE . ESTIMATED GFR I S NOT APPLICABLE FOR DIALYSIS PATIENTS. BRISA (test code = BRISA) Oven Attendant ID - [id number] r ID - [id number] r ID - [id number] r ID - [id number] r ID - [id number] r ID - [id number] r ID - [id number] r ID - [id number] r ID - [id number] r ID - [id number] r ID - [id number] r ID - [id number] Lab Interpretation Abnormal (test code = 78085-5) [facility] metabolic panel (Na, K+, Cl, CO2, Glu, Ca, BUN, Cr)2021-07-30 20:00:22 Test Item Value Reference Range Interpretation Comments Sodium (test code = 135 meq/L 233-556 1190-2) Potassium (test code = 4.2 meq/L 3.6-5.5 2823-3) Chloride (test code = 103 meq/L 98-106 2075-0) CO2 (test code = 24 meq/L 20-29 2027-9) BUN (test code = 8 mg/dL 10-26 L 3094-0) Creatinine (test code 0.75 mg/dL 0.50-1.20 = 2160-0) Glucose (test code = 77 mg/dL 70-110 2345-7) Calcium (test code = 9.1 mg/dL 8.5-10.5 69087-1) EGFR (test code = 118 mL/min/1.73 sq [place] [address]-8) NOT ACCURATE CREATININE CLEARANCE IN PREDICTING GLOMERULAR FILTRATION RATE . ESTIMATED GFR I S NOT APPLICABLE FOR DIALYSIS PATIENTS. BRISA (test code = BRISA) Oven Attendant ID - [id number] r ID - [id number] r ID - [id number] r ID - [id number] r ID - [id number] r ID - [id number] r ID - [id number] r ID - [id number] r ID - [id number] r ID - [id number] r ID - [id number] r ID - [id number] Lab Interpretation Abnormal (test code = 06800-0) [facility] metabolic panel (Na, K+, Cl, CO2, Glu, Ca, BUN, Cr)2021-07-30 20:00:22 Test Item Value Reference Range Interpretation Comments Sodium (test code = 135 meq/L 788-097 3282-2) Potassium (test code = 4.2 meq/L 3.6-5.5 2823-3) Chloride (test code = 103 meq/L 98-106 2075-0) CO2 (test code = 24 meq/L -29 2028-03) BUN (test code = 8 mg/dL 10-26 L 3094-0) Creatinine (test code 0.75 mg/dL 0.50-1.20 = 2160-0) Glucose (test code = 77 mg/dL 70-110 2345-7) Calcium (test code = 9.1 mg/dL 8.5-10.5 63444-3) EGFR (test code = 118 mL/min/1.73 [place] [address]-5) NOT ACCURATE CREATININE CLEARANCE IN PREDICTING GLOMERULAR FILTRATION RATE . ESTIMATED GFR I S NOT APPLICABLE FOR DIALYSIS PATIENTS. BRISA (test code = BRISA) Oven Attendant ID - [id number] r ID - [id number] r ID - [id number] r ID - [id number] r ID - [id number] r ID - [id number] r ID - [id number] r ID - [id number] r ID - [id number] r ID - [id number] r ID - [id number] r ID - [id number] Lab Interpretation Abnormal (test code = 63335-3) [facility] (Na, K+, Cl, CO2, Glu, Ca, BUN, Cr)2021-07-30 20:00:22 Test Item Value Reference Range Interpretation Comments Sodium (test code = 135 meq/L 409-198 4771-2) Potassium (test code = 4.2 meq/L 3.6-5.5 2823-3) Chloride (test code = 103 meq/L 98-106 2074-0) CO2 (test code = 24 meq/L -29 2028-03) BUN (test code = 8 mg/dL 10-26 L 3094-0) Creatinine (test code 0.75 mg/dL 0.50-1.20 = 2160-0) Glucose (test code = 77 mg/dL 70-110 2345-7) Calcium (test code = 9.1 mg/dL 8.5-10.5 56272-9) EGFR (test code = 118 mL/min/1.73 [place] [address]-6) NOT ACCURATE CREATININE CLEARANCE IN PREDICTING GLOMERULAR FILTRATION RATE . ESTIMATED GFR I S NOT APPLICABLE FOR DIALYSIS PATIENTS. BRISA (test code = BRISA) Oven Attendant ID - [id number] r ID - [id number] r ID - [id number] r ID - [id number] r ID - [id number] r ID - [id number] r ID - [id number] r ID - [id number] r ID - [id number] r ID - [id number] r ID - [id number] r ID - [id number] Lab Interpretation Abnormal (test code = 42095-0) [facility] metabolic panel (Na, K+, Cl, CO2, Glu, Ca, BUN, Cr)2021-07-30 20:00:22 Test Item Value Reference Range Interpretation Comments Sodium (test code = 135 meq/L 998-630 1973-2) Potassium (test code = 4.2 meq/L 3.6-5.5 2823-3) Chloride (test code = 103 meq/L 98-106 2075-0) CO2 (test code = 24 meq/L 20-29 2028-9) BUN (test code = 8 mg/dL 10-26 L 3094-0) Creatinine (test code 0.75 mg/dL 0.50-1.20 = 2160-0) Glucose (test code = 77 mg/dL 70-110 2345-7) Calcium (test code = 9.1 mg/dL 8.5-10.5 25926-4) EGFR (test code = 118 mL/min/1.73 [place] [address]-9) NOT ACCURATE CREATININE CLEARANCE IN PREDICTING GLOMERULAR FILTRATION RATE . ESTIMATED GFR I S NOT APPLICABLE FOR DIALYSIS PATIENTS. BRISA (test code = BRISA) Oven Attendant ID - [id number] r ID - [id number] r ID - [id number] r ID - [id number] r ID - [id number] r ID - [id number] r ID - [id number] r ID - [id number] r ID - [id number] r ID - [id number] r ID - [id number] r ID - [id number] Lab Interpretation Abnormal (test code = 34440-9) [facility] metabolic panel (Na, K+, Cl, CO2, Glu, Ca, BUN, Cr)2021-07-30 20:00:22 Test Item Value Reference Range Interpretation Comments Sodium (test code = 135 meq/L 840-276 5913-2) Potassium (test code = 4.2 meq/L 3.6-5.5 2823-3) Chloride (test code = 103 meq/L 98-106 2075-0) CO2 (test code = 24 meq/L -2027-9) BUN (test code = 8 mg/dL 10-26 L 3094-0) Creatinine (test code 0.75 mg/dL 0.50-1.20 = 2160-0) Glucose (test code = 77 mg/dL 70-110 2345-7) Calcium (test code = 9.1 mg/dL 8.5-10.5 44013-4) EGFR (test code = 118 mL/min/1.73 sq [place] [address]-9) NOT ACCURATE CREATININE CLEARANCE IN PREDICTING GLOMERULAR FILTRATION RATE . ESTIMATED GFR I S NOT APPLICABLE FOR DIALYSIS PATIENTS. BRISA (test code = BRISA) Oven Attendant ID - [id number] r ID - [id number] r ID - [id number] r ID - [id number] r ID - [id number] r ID - [id number] r ID - [id number] r ID - [id number] r ID - [id number] r ID - [id number] r ID - [id number] r ID - [id number] Lab Interpretation Abnormal (test code = 48562-0) [facility] metabolic panel (Na, K+, Cl, CO2, Glu, Ca, BUN, Cr)2021-07-30 20:00:22 Test Item Value Reference Range Interpretation Comments Sodium (test code = 135 meq/L 724-647 9929-2) Potassium (test code = 4.2 meq/L 3.6-5.5 2823-3) Chloride (test code = 103 meq/L 98-106 2075-0) CO2 (test code = 24 meq/L -2028-03) BUN (test code = 8 mg/dL 10-26 L 3094-0) Creatinine (test code 0.75 mg/dL 0.50-1.20 = 2160-0) Glucose (test code = 77 mg/dL 70-110 2345-7) Calcium (test code = 9.1 mg/dL 8.5-10.5 52784-3) EGFR (test code = 118 mL/min/1.73 [place] [address]-4) NOT ACCURATE CREATININE CLEARANCE IN PREDICTING GLOMERULAR FILTRATION RATE . ESTIMATED GFR I S NOT APPLICABLE FOR DIALYSIS PATIENTS. BRISA (test code = BRISA) Oven Attendant ID - [id number] r ID - [id number] r ID - [id number] r ID - [id number] r ID - [id number] r ID - [id number] r ID - [id number] r ID - [id number] r ID - [id number] r ID - [id number] r ID - [id number] r ID - [id number] Lab Interpretation Abnormal (test code = 03221-8) [facility] ([facility], [facility]+, Cl, CO2, Glu, Ca, BUN, Cr)2021-07-30 20:00:22 Test Item Value Reference Range Interpretation Comments Sodium (test code = 135 meq/L 795-973 0240-2) Potassium (test code = 4.2 meq/L 3.6-5.5 2823-3) Chloride (test code = 103 meq/L 98-106 2074-0) CO2 (test code = 24 meq/L -29 2028-03) BUN (test code = 8 mg/dL 10-26 L 3094-0) Creatinine (test code 0.75 mg/dL 0.50-1.20 = 2160-0) Glucose (test code = 77 mg/dL 70-110 2345-7) Calcium (test code = 9.1 mg/dL 8.5-10.5 66535-0) EGFR (test code = 118 mL/min/1.73 [place] [address]-7) NOT ACCURATE CREATININE CLEARANCE IN PREDICTING GLOMERULAR FILTRATION RATE . ESTIMATED GFR I S NOT APPLICABLE FOR DIALYSIS PATIENTS. BRISA (test code = BRISA) Oven Attendant ID - [id number] r ID - [id number] r ID - [id number] r ID - [id number] r ID - [id number] r ID - [id number] r ID - [id number] r ID - [id number] r ID - [id number] r ID - [id number] r ID - [id number] r ID - [id number] Lab Interpretation Abnormal (test code = 55351-1) [facility] (Na, K+, Cl, CO2, Glu, Ca, BUN, Cr)2021-07-30 20:00:22 Test Item Value Reference Range Interpretation Comments Sodium (test code = 135 meq/L 785-444 4752-2) Potassium (test code = 4.2 meq/L 3.6-5.5 2823-3) Chloride (test code = 103 meq/L 98-106 2075-0) CO2 (test code = 24 meq/L 20-29 8-9) BUN (test code = 8 mg/dL 10-26 L 3094-0) Creatinine (test code 0.75 mg/dL 0.50-1.20 = 2160-0) Glucose (test code = 77 mg/dL 70-110 2345-7) Calcium (test code = 9.1 mg/dL 8.5-10.5 47789-7) EGFR (test code = 118 mL/min/1.73 [place] [address]-7) NOT ACCURATE CREATININE CLEARANCE IN PREDICTING GLOMERULAR FILTRATION RATE . ESTIMATED GFR I S NOT APPLICABLE FOR DIALYSIS PATIENTS. BRISA (test code = BRISA) Oven Attendant ID - [id number] r ID - [id number] r ID - [id number] r ID - [id number] r ID - [id number] r ID - [id number] r ID - [id number] r ID - [id number] r ID - [id number] r ID - [id number] r ID - [id number] r ID - [id number] Lab Interpretation Abnormal (test code = 67237-2) [id number] 20:00:22 Test Item Value Reference Range Interpretation [...] S NOT APPLICABLE FOR DIALYSIS PATIEN TS. Oven Attendant ID - [id number] ID - [id number] ID - [id number] ID - [id number] ID - [id number] ID - [id number] ID - [id number] ID - [id number] ID - [id number] ID - [id number] ID - [id number] ID - [id number] with platelet count + automated [id number] 19:43:00 Test Item Value Reference Range Interpretation Comments WBC (test code = 6690-2) 6.2 See_Comment [A utomated message] The system [employer] generated this result transmitted ref erence range: 4.0 - 10 .0 K/L. The refe rence range was not u sed to interpret this result as normal/abnor mal. RBC (test code = 789-8) 3.93 See_Comment L [Au tomated message] The system [employer] generated this result transmitted ref erence range: 4.20 - 5 .80 M/L. The refe rence range was not u sed to interpret this result as normal/abnor mal. MCHC (test code = 786-4) 34.2 See_Comment L [A utomated message] The system [employer] generated this result transmitted ref erence range: [...] See_Comment [Aut omated message] 777-3) The system [employer] generated this result transmitted ref erence range: 150 - 43 0 K/CU MM. The referen ce range was not u sed to interpret this result as normal/abnor mal. MPV (test code = 8.7 fL 6.0-11.5 42422-9) nRBC (test code = 413) 0 See_Comment [Aut omated message] The system [employer] generated this result transmitted ref erence range: [...] See_Comment [Aut omated message] 670) The system [employer] generated this result transmitted ref erence range: 1.80 - 8 .00 K/L. The refe rence range was not u sed to interpret this result as normal/abnor mal. # Lymphs (test code = 2.15 See_Comment [Auto mated message] 414) The system [employer] generated this result transmitted ref erence range: 1.48 - 4 .50 K/L. The refe rence range was not u sed to interpret this result as normal/abnor mal. # Monos (test code = 0.49 See_Comment [Autom ated message] 415) The system [employer] generated this result transmitted ref erence range: 0.00 - 1 .30 K/L. The refe rence range was not u sed to interpret this result as normal/abnor mal. # Eos (test code = 416) 0.51 See_Comment H [Au tomated message] The system [employer] generated this result transmitted ref erence range: 0.00 - 0 .50 K/L. The refe rence range was not u sed to interpret this result as normal/abnor mal. # Baso (test code = 417) 0.05 See_Comment [A utomated message] The system [employer] generated this result transmitted ref erence range: 0.00 - 0 .20 K/L. The refe rence range was not u sed to interpret this result as normal/abnor mal. Immature 0 % 0-0 Granulocytes-Relative (test code = 2801) Lab Interpretation (test Abnormal code = 70647-1) [facility] [id number] 19:43:00 Test Item Value Reference Range Interpretation Comments WBC (test code = 6690-2) 6.2 See_Comment [A utomated message] The system [employer] generated this result transmitted ref erence range: 4.0 - 10 .0 K/L. The refe rence range was not u sed to interpret this result as normal/abnor mal. RBC (test code = 789-8) 3.93 See_Comment L [Au tomated message] The system [employer] generated this result transmitted ref erence range: 4.20 - 5 .80 M/L. The refe rence range was not u sed to interpret this result as normal/abnor mal. MCHC (test code = 786-4) 34.2 See_Comment L [A utomated message] The system [employer] generated this result transmitted ref erence range: [...] See_Comment [Aut omated message] 777-3) The system [employer] generated this result transmitted ref erence range: 150 - 43 0 K/CU MM. The referen ce range was not u sed to interpret this result as normal/abnor mal. MPV (test code = 8.7 fL 6.0-11.5 15608-1) nRBC (test code = 413) 0 See_Comment [Aut omated message] The system [employer] generated this result transmitted ref erence range: [...] See_Comment [Aut omated message] 670) The system [employer] generated this result transmitted ref erence range: 1.80 - 8 .00 K/L. The refe rence range was not u sed to interpret this result as normal/abnor mal. # Lymphs (test code = 2.15 See_Comment [Auto mated message] 414) The system [employer] generated this result transmitted ref erence range: 1.48 - 4 .50 K/L. The refe rence range was not u sed to interpret this result as normal/abnor mal. # Monos (test code = 0.49 See_Comment [Autom ated message] 415) The system [employer] generated this result transmitted ref erence range: 0.00 - 1 .30 K/L. The refe rence range was not u sed to interpret this result as normal/abnor mal. # Eos (test code = 416) 0.51 See_Comment H [Au tomated message] The system [employer] generated this result transmitted ref erence range: 0.00 - 0 .50 K/L. The refe rence range was not u sed to interpret this result as normal/abnor mal. # Baso (test code = 417) 0.05 See_Comment [A utomated message] The system [employer] generated this result transmitted ref erence range: 0.00 - 0 .20 K/L. The refe rence range was not u sed to interpret this result as normal/abnor mal. Immature 0 % 0-0 Granulocytes-Relative (test code = 2801) Lab Interpretation (test Abnormal code = 17430-9) [facility] with platelet count + automated [id number] 19:43:00 Test Item Value Reference Range Interpretation Comments WBC (test code = 6690-2) 6.2 See_Comment [A utomated message] The system [employer] generated this result transmitted ref erence range: 4.0 - 10 .0 K/L. The refe rence range was not u sed to interpret this result as normal/abnor mal. RBC (test code = 789-8) 3.93 See_Comment L [Au tomated message] The system [employer] generated this result transmitted ref erence range: 4.20 - 5 .80 M/L. The refe rence range was not u sed to interpret this result as normal/abnor mal. MCHC (test code = 786-4) 34.2 See_Comment L [A utomated message] The system [employer] generated this result transmitted ref erence range: [...] code = 308 See_Comment [Aut omated message] 637-3) The system [employer] generated this result transmitted ref erence range: 150 - 43 0 K/CU MM. The referen ce range was not u sed to interpret this result as normal/abnor mal. MPV (test code = 8.7 fL 6.0-11.5 31363-2) nRBC (test code = 413) 0 See_Comment [Aut omated message] The system [employer] generated this result transmitted ref erence range: [...] See_Comment [Aut omated message] 670) The system [employer] generated this result transmitted ref erence range: 1.80 - 8 .00 K/L. The refe rence range was not u sed to interpret this result as normal/abnor mal. # Lymphs (test code = 2.15 See_Comment [Auto mated message] 414) The system [employer] generated this result transmitted ref erence range: 1.48 - 4 .50 K/L. The refe rence range was not u sed to interpret this result as normal/abnor mal. # Monos (test code = 0.49 See_Comment [Autom ated message] 415) The system [employer] generated this result transmitted ref erence range: 0.00 - 1 .30 K/L. The refe rence range was not u sed to interpret this result as normal/abnor mal. # Eos (test code = 416) 0.51 See_Comment H [Au tomated message] The system [employer] generated this result transmitted ref erence range: 0.00 - 0 .50 K/L. The refe rence range was not u sed to interpret this result as normal/abnor mal. # Baso (test code = 417) 0.05 See_Comment [A utomated message] The system [employer] generated this result transmitted ref erence range: 0.00 - 0 .20 K/L. The refe rence range was not u sed to interpret this result as normal/abnor mal. Immature 0 % 0-0 Granulocytes-Relative (test code = 2801) Lab Interpretation (test Abnormal code = 52316-5) [facility] with platelet count + automated [id number] 19:43:00 Test Item Value Reference Range Interpretation Comments WBC (test code = 6690-2) 6.2 See_Comment [A utomated message] The system [employer] generated this result transmitted ref erence range: 4.0 - 10 .0 K/L. The refe rence range was not u sed to interpret this result as normal/abnor mal. RBC (test code = 789-8) 3.93 See_Comment L [Au tomated message] The system [employer] generated this result transmitted ref erence range: 4.20 - 5 .80 M/L. The refe rence range was not u sed to interpret this result as normal/abnor mal. MCHC (test code = 786-4) 34.2 See_Comment L [A utomated message] The system [employer] generated this result transmitted ref erence range: [...] See_Comment [Aut omated message] 777-3) The system [employer] generated this result transmitted ref erence range: 150 - 43 0 K/CU MM. The referen ce range was not u sed to interpret this result as normal/abnor mal. MPV (test code = 8.7 fL 6.0-11.5 28858-3) nRBC (test code = 413) 0 See_Comment [Aut omated message] The system [employer] generated this result transmitted ref erence range: [...] See_Comment [Aut omated message] 670) The system [employer] generated this result transmitted ref erence range: 1.80 - 8 .00 K/L. The refe rence range was not u sed to interpret this result as normal/abnor mal. # Lymphs (test code = 2.15 See_Comment [Auto mated message] 414) The system [employer] generated this result transmitted ref erence range: 1.48 - 4 .50 K/L. The refe rence range was not u sed to interpret this result as normal/abnor mal. # Monos (test code = 0.49 See_Comment [Autom ated message] 415) The system [employer] generated this result transmitted ref erence range: 0.00 - 1 .30 K/L. The refe rence range was not u sed to interpret this result as normal/abnor mal. # Eos (test code = 416) 0.51 See_Comment H [Au tomated message] The system [employer] generated this result transmitted ref erence range: 0.00 - 0 .50 K/L. The refe rence range was not u sed to interpret this result as normal/abnor mal. # Baso (test code = 417) 0.05 See_Comment [A utomated message] The system [employer] generated this result transmitted ref erence range: 0.00 - 0 .20 K/L. The refe rence range was not u sed to interpret this result as normal/abnor mal. Immature 0 % 0-0 Granulocytes-Relative (test code = 2801) Lab Interpretation (test Abnormal code = 20604-6) [facility] with platelet count + automated [id number] 19:43:00 Test Item Value Reference Range Interpretation Comments WBC (test code = 6690-2) 6.2 See_Comment [A utomated message] The system [employer] generated this result transmitted ref erence range: 4.0 - 10 .0 K/L. The refe rence range was not u sed to interpret this result as normal/abnor mal. RBC (test code = 789-8) 3.93 See_Comment L [Au tomated message] The system [employer] generated this result transmitted ref erence range: 4.20 - 5 .80 M/L. The refe rence range was not u sed to interpret this result as normal/abnor mal. MCHC (test code = 786-4) 34.2 See_Comment L [A utomated message] The system [employer] generated this result transmitted ref erence range: [...] See_Comment [Aut omated message] 777-3) The system [employer] generated this result transmitted ref erence range: 150 - 43 0 K/CU MM. The referen ce range was not u sed to interpret this result as normal/abnor mal. MPV (test code = 8.7 fL 6.0-11.5 79084-8) nRBC (test code = 413) 0 See_Comment [Aut omated message] The system [employer] generated this result transmitted ref erence range: [...] See_Comment [Aut omated message] 670) The system [employer] generated this result transmitted ref erence range: 1.80 - 8 .00 K/L. The refe rence range was not u sed to interpret this result as normal/abnor mal. # Lymphs (test code = 2.15 See_Comment [Auto mated message] 414) The system [employer] generated this result transmitted ref erence range: 1.48 - 4 .50 K/L. The refe rence range was not u sed to interpret this result as normal/abnor mal. # Monos (test code = 0.49 See_Comment [Autom ated message] 415) The system [employer] generated this result transmitted ref erence range: 0.00 - 1 .30 K/L. The refe rence range was not u sed to interpret this result as normal/abnor mal. # Eos (test code = 416) 0.51 See_Comment H [Au tomated message] The system [employer] generated this result transmitted ref erence range: 0.00 - 0 .50 K/L. The refe rence range was not u sed to interpret this result as normal/abnor mal. # Baso (test code = 417) 0.05 See_Comment [A utomated message] The system [employer] generated this result transmitted ref erence range: 0.00 - 0 .20 K/L. The refe rence range was not u sed to interpret this result as normal/abnor mal. Immature 0 % 0-0 Granulocytes-Relative (test code = 2801) Lab Interpretation (test Abnormal code = 89707-7) [facility] with platelet count + automated [id number] 19:43:00 Test Item Value Reference Range Interpretation Comments WBC (test code = 6690-2) 6.2 See_Comment [A utomated message] The system [employer] generated this result transmitted ref erence range: 4.0 - 10 .0 K/L. The refe rence range was not u sed to interpret this result as normal/abnor mal. RBC (test code = 789-8) 3.93 See_Comment L [Au tomated message] The system [employer] generated this result transmitted ref erence range: 4.20 - 5 .80 M/L. The refe rence range was not u sed to interpret this result as normal/abnor mal. MCHC (test code = 786-4) 34.2 See_Comment L [A utomated message] The system [employer] generated this result transmitted ref erence range: [...] See_Comment [Aut omated message] 777-3) The system [employer] generated this result transmitted ref erence range: 150 - 43 0 K/CU MM. The referen ce range was not u sed to interpret this result as normal/abnor mal. MPV (test code = 8.7 fL 6.0-11.5 23291-5) nRBC (test code = 413) 0 See_Comment [Aut omated message] The system [employer] generated this result transmitted ref erence range: [...] See_Comment [Aut omated message] 670) The system [employer] generated this result transmitted ref erence range: 1.80 - 8 .00 K/L. The refe rence range was not u sed to interpret this result as normal/abnor mal. # Lymphs (test code = 2.15 See_Comment [Auto mated message] 414) The system [employer] generated this result transmitted ref erence range: 1.48 - 4 .50 K/L. The refe rence range was not u sed to interpret this result as normal/abnor mal. # Monos (test code = 0.49 See_Comment [Autom ated message] 415) The system [employer] generated this result transmitted ref erence range: 0.00 - 1 .30 K/L. The refe rence range was not u sed to interpret this result as normal/abnor mal. # Eos (test code = 416) 0.51 See_Comment H [Au tomated message] The system [employer] generated this result transmitted ref erence range: 0.00 - 0 .50 K/L. The refe rence range was not u sed to interpret this result as normal/abnor mal. # Baso (test code = 417) 0.05 See_Comment [A utomated message] The system [employer] generated this result transmitted ref erence range: 0.00 - 0 .20 K/L. The refe rence range was not u sed to interpret this result as normal/abnor mal. Immature 0 % 0-0 Granulocytes-Relative (test code = 2801) Lab Interpretation (test Abnormal code = 38390-4) [facility] with platelet count + automated [id number] 19:43:00 Test Item Value Reference Range Interpretation Comments WBC (test code = 6690-2) 6.2 See_Comment [A utomated message] The system [employer] generated this result transmitted ref erence range: 4.0 - 10 .0 K/L. The refe rence range was not u sed to interpret this result as normal/abnor mal. RBC (test code = 789-8) 3.93 See_Comment L [Au tomated message] The system [employer] generated this result transmitted ref erence range: 4.20 - 5 .80 M/L. The refe rence range was not u sed to interpret this result as normal/abnor mal. MCHC (test code = 786-4) 34.2 See_Comment L [A utomated message] The system [employer] generated this result transmitted ref erence range: [...] See_Comment [Aut omated message] 777-3) The system [employer] generated this result transmitted ref erence range: 150 - 43 0 K/CU MM. The referen ce range was not u sed to interpret this result as normal/abnor mal. MPV (test code = 8.7 fL 6.0-11.5 03985-7) nRBC (test code = 413) 0 See_Comment [Aut omated message] The system [employer] generated this result transmitted ref erence range: [...] See_Comment [Aut omated message] 670) The system [employer] generated this result transmitted ref erence range: 1.80 - 8 .00 K/L. The refe rence range was not u sed to interpret this result as normal/abnor mal. # Lymphs (test code = 2.15 See_Comment [Auto mated message] 414) The system [employer] generated this result transmitted ref erence range: 1.48 - 4 .50 K/L. The refe rence range was not u sed to interpret this result as normal/abnor mal. # Monos (test code = 0.49 See_Comment [Autom ated message] 415) The system [employer] generated this result transmitted ref erence range: 0.00 - 1 .30 K/L. The refe rence range was not u sed to interpret this result as normal/abnor mal. # Eos (test code = 416) 0.51 See_Comment H [Au tomated message] The system [employer] generated this result transmitted ref erence range: 0.00 - 0 .50 K/L. The refe rence range was not u sed to interpret this result as normal/abnor mal. # Baso (test code = 417) 0.05 See_Comment [A utomated message] The system [employer] generated this result transmitted ref erence range: 0.00 - 0 .20 K/L. The refe rence range was not u sed to interpret this result as normal/abnor mal. Immature 0 % 0-0 Granulocytes-Relative (test code = 2801) Lab Interpretation (test Abnormal code = 07829-9) [facility] with platelet count + automated [id number] 19:43:00 Test Item Value Reference Range Interpretation Comments WBC (test code = 6690-2) 6.2 See_Comment [A utomated message] The system [employer] generated this result transmitted ref erence range: 4.0 - 10 .0 K/L. The refe rence range was not u sed to interpret this result as normal/abnor mal. RBC (test code = 789-8) 3.93 See_Comment L [Au tomated message] The system [employer] generated this result transmitted ref erence range: 4.20 - 5 .80 M/L. The refe rence range was not u sed to interpret this result as normal/abnor mal. MCHC (test code = 786-4) 34.2 See_Comment L [A utomated message] The system [employer] generated this result transmitted ref erence range: [...] code = 308 See_Comment [Aut omated message] 277-3) The system [employer] generated this result transmitted ref erence range: 150 - 43 0 K/CU MM. The referen ce range was not u sed to interpret this result as normal/abnor mal. MPV (test code = 8.7 fL 6.0-11.5 34383-5) nRBC (test code = 413) 0 See_Comment [Aut omated message] The system [employer] generated this result transmitted ref erence range: [...] See_Comment [Aut omated message] 670) The system [employer] generated this result transmitted ref erence range: 1.80 - 8 .00 K/L. The refe rence range was not u sed to interpret this result as normal/abnor mal. # Lymphs (test code = 2.15 See_Comment [Auto mated message] 414) The system [employer] generated this result transmitted ref erence range: 1.48 - 4 .50 K/L. The refe rence range was not u sed to interpret this result as normal/abnor mal. # Monos (test code = 0.49 See_Comment [Autom ated message] 415) The system [employer] generated this result transmitted ref erence range: 0.00 - 1 .30 K/L. The refe rence range was not u sed to interpret this result as normal/abnor mal. # Eos (test code = 416) 0.51 See_Comment H [Au tomated message] The system [employer] generated this result transmitted ref erence range: 0.00 - 0 .50 K/L. The refe rence range was not u sed to interpret this result as normal/abnor mal. # Baso (test code = 417) 0.05 See_Comment [A utomated message] The system [employer] generated this result transmitted ref erence range: 0.00 - 0 .20 K/L. The refe rence range was not u sed to interpret this result as normal/abnor mal. Immature 0 % 0-0 Granulocytes-Relative (test code = 2801) Lab Interpretation (test Abnormal code = 11631-2) [facility] with platelet count + automated [id number] 19:43:00 Test Item Value Reference Range Interpretation Comments WBC (test code = 6690-2) 6.2 See_Comment [A utomated message] The system [employer] generated this result transmitted ref erence range: 4.0 - 10 .0 K/L. The refe rence range was not u sed to interpret this result as normal/abnor mal. RBC (test code = 789-8) 3.93 See_Comment L [Au tomated message] The system [employer] generated this result transmitted ref erence range: 4.20 - 5 .80 M/L. The refe rence range was not u sed to interpret this result as normal/abnor mal. MCHC (test code = 786-4) 34.2 See_Comment L [A utomated message] The system [employer] generated this result transmitted ref erence range: [...] See_Comment [Aut omated message] 777-3) The system [employer] generated this result transmitted ref erence range: 150 - 43 0 K/CU MM. The referen ce range was not u sed to interpret this result as normal/abnor mal. MPV (test code = 8.7 fL 6.0-11.5 41428-8) nRBC (test code = 413) 0 See_Comment [Aut omated message] The system [employer] generated this result transmitted ref erence range: [...] See_Comment [Aut omated message] 670) The system [employer] generated this result transmitted ref erence range: 1.80 - 8 .00 K/L. The refe rence range was not u sed to interpret this result as normal/abnor mal. # Lymphs (test code = 2.15 See_Comment [Auto mated message] 414) The system [employer] generated this result transmitted ref erence range: 1.48 - 4 .50 K/L. The refe rence range was not u sed to interpret this result as normal/abnor mal. # Monos (test code = 0.49 See_Comment [Autom ated message] 415) The system [employer] generated this result transmitted ref erence range: 0.00 - 1 .30 K/L. The refe rence range was not u sed to interpret this result as normal/abnor mal. # Eos (test code = 416) 0.51 See_Comment H [Au tomated message] The system [employer] generated this result transmitted ref erence range: 0.00 - 0 .50 K/L. The refe rence range was not u sed to interpret this result as normal/abnor mal. # Baso (test code = 417) 0.05 See_Comment [A utomated message] The system [employer] generated this result transmitted ref erence range: 0.00 - 0 .20 K/L. The refe rence range was not u sed to interpret this result as normal/abnor mal. Immature 0 % 0-0 Granulocytes-Relative (test code = 2801) Lab Interpretation (test Abnormal code = 35861-9) [facility] W/PLT COUNT & AUTO [id number] 19:43:00 Test Item Value Reference Range Interpretation [...] PERCENT (BEAKER) (test code = 2801) SURGICAL [id number] 07:40:00 RUN DATE: 09/19/18 [place] [facility] *LIVE* PAGE 1 RUN TIME: 740 Specimen Inquiry RUN USER: INTERFACE --------- ---PATIENT: VER[facility]NICA [facility]UN[facility] [id number] AGE/SX: 32/M ROOM: [facility] RE09/15/18REG DR: Keith Swann MD : 84 BED: 1 DIS: 09/16/18 STATUS: DIS IN TLOC: SPEC #: [id number] RECD: 09/15/18 STATUS: DRAGAN REQ #: [id number] DONA: 09/15/[address]: Keith Swann MD ENTERED: 09/18/18 SP TYPE: SURG SPEC OTHR DR: No Primary or Family Physician Self Referred Gale Dowling MDORDERED: LEVEL 4 CODES: [id number] - ESOPHAGUS, NOS COPIES TO: No Primary or Family Physician Self Referred Keith Swann MD [address] [place] [address] Gale Dowling MD [address] [place], [place] [id number] PROCEDURES: GM LEVEL 4 (Incomplete) TISSUES: 1. ESOPHAGUS, NOS - Esophagus, bx. FINAL DIAGNOSIS Esophagus, bx.: Eosinophilic esophagitis. GROSS AND MICROSCOPIC GROSS EXAMINAT ION: Received in formalin labeled esophagus biopsy are 2 james tissue fragments measuring up to 0.4 cmsubmitted in one cassette. MICROSCOPIC EXAMINATION: Sections of the esophagus biopsy reveal reactive squamous epithelium with elongation of the vascular papillae, thickened basal layer and acanthosis.There are abundant eosinophils present with up to 80 per high-power field identified. No fungal organisms identified with GMS staining. No intestinal metaplasia identified without seen blue-PAS staining. (When special stains have been reviewed, the appropriate positive/negative controls have been reviewed and are appropriately positive/negative). CONTINUED ON NEXT PAGE RUN DATE: 09/19/18 [facility]*LIVE* PAGE 2 RUN TIME: 740 Specimen Inquiry RUN USER: INTERFACE SPEC #: [id number] PATIENT: VERÓNICA NUNN #[id number] (Continued) POST-OP DIAGNOSIS Esophagitis, supertial tear in the esophagus, R/O Flor, esosinophilic es PRE-OP DIAGNOSIS Hematemesis Signed SIGNATURE ON FILE Joce Barbosa DO 09/19/18 0740 END OF REPORT BASIC METABOLIC [id number] 08:40:00 Test Item Value Reference Range Interpretation [...] 9.1 mg/dL 8.0-10.5 N CA) CBC W/AUTO [id number] 08:20:00 Test Item Value Reference Range Interpretation [...] (test code NO = MDIFF) CBC W/AUTO [id number] 22:25:00 Test Item Value Reference Range Interpretation [...] (test code NO = MDIFF) CBC W/AUTO [id number] 12:50:00 Test Item Value Reference Range Interpretation [...] (test code NO = MDIFF) CBC W/AUTO [id number] 07:24:00 Test Item Value Reference Range Interpretation [...] REQUIRED (test NO code = MDIFF) PROTHROMBIN [id number] 00:10:00 Test Item Value Reference Range Interpretation [...] (to prevent recurrent infar ct). CBC W/AUTO [id number] 00:03:00 Test Item Value Reference Range Interpretation [...] REQUIRED (test NO code = MDIFF) PROTHROMBIN [id number] 18:57:00 Test Item Value Reference Range Interpretation Comments PT PATIENT (test code = PTP) 13.1 SECONDS 9.3-12.9 H INTERNATIONAL NORMAL RATIO 1.14 INR Unit 0.8-1.2 N (test code = INR) URINALYSIS [id number] 18:56:00 Test Item Value Reference Range Interpretation [...] code = 7.5 pH UNITS 5.0-7.0 A OIRANA) UA PROTEIN DIPSTICK (test NEGATIVE mg/dL NEG code = PROU) UA UROBILINIOGEN DIPSTICK 0.2 mg/dL <2.0 (test code = URO) UA NITRITE DIPSTICK (test NEGATIVE SCREEN NEG code = BRITTANY) UA LEUKOCYTE ESTERASE NEGATIVE Leuk/mcL NEGATIVE DIPSTICK (test code = LEUU) - CT ABD PELVIS [id number] 16:49:00 Name: VERÓNICA NUNN [facility] : 1985 Age/S: 32 / M [id number] Unit #: [id number] Loc: [place] [address] Phys: Ivette Choudhary MD Acct: [id number] Dis Date: Status: REG ER PHONE #: [phone] Exam Date: 09/14/2018 7203 FAX #: Reason: abd pain unable to give further info 08/05 mr EXAMS: CPT: [id number] CT ABD PELVIS W/CONT 14487 EXAMINATION: - CT ABD PELVIS W/CONT. LOCATION: [...] NUNN : 1985 Age/S: 32 / M [address] Unit #: [id number] Loc: [place] [address] Phys: Ivette Choudhary MD Acct: [id number] Dis Date: Status: REG ER PHONE #: [phone] Exam Date: 09/14/2018 1635 FAX #: Reason: abd pain unable to give further info 08/05 mr EXAM S: CPT: [id number] CT ABD PELVIS W/CONT 19315 (Continued) CC: Ivette Choudhary MD Technologist:RT Jey(R)(CT) CTDI: DLP: Trnscb Date/Time: 09/14/2018 (1648) t.[email or web address] Orig Print D/T: S: 09/14/2018 (538) CTDI: DLP: PAGE 2 Signed ReportBASIC METABOLIC [id number] 16:06:00 Test Item Value Reference Range Interpretation [...] CA) 9.7 MG/DL 8.5-10.1 N HEPATIC FUNCTION [id number] 16:06:00 Test Item Value Reference Range Interpretation [...] 89 Unit/L 50-136 N code = ALKP) [id number] 16:06:00 Test Item Value Reference Range Interpretation Comments LIPASE (test code = LIP) 173 Unit/L 114-286 N BASIC METABOLIC [id number] 15:56:00 Test Item Value Reference Range Interpretation [...] CA) 9.7 MG/DL 8.5-10.1 N HEPATIC FUNCTION [id number] 15:56:00 Test Item Value Reference Range Interpretation [...] TOTAL (test code Unit/L 50-136 = ALKP) [id number] 15:56:00 Test Item Value Reference Range Interpretation Comments LIPASE (test code = LIP) 173 Unit/L 114-286 N CBC W/AUTO [id number] 15:47:00 Test Item Value Reference Range Interpretation [...]
--- NOTE | 2022-04-03 01:42 | EDPHYS ---
Physician Documentation [facility] Name: Alexy Mock Age: 36 yrs Sex: Male : 1985 Arrival Date: 04/03/2022 Time: 01:06 Bed 5 Private MD: ED Physician Vidal Gomez HPI: 04/03 01:36 This 36 yrs old Male presents to ER via EMS with complaints of fall out of bed.anthony 01:36 The patient or guardian reports injury, a laceration, 1 cm(s). The complaints affect [facility] the nose. Context of injury: The problem was sustained at a [facility] or assisted living facility. Onset: The symptoms/episode began/occurred just prior to arrival. Associated signs and symptoms: The patient has no apparent associated signs or symptoms. Severity of symptoms: At their worst the symptoms were mild, in the emergency department the symptoms are unchanged. The patient has not experienced similar symptoms in the past. Historical: - Allergies: 01:26 No Known Allergies; aa9 - PMHx: 01:26 abnormal liver function; adhd; Anemia; Bipolar disorder; DYSPHAGIA; ENCEPHALOPATHY; aa9 epilepsy; Hypothyroidism; MR; pressure ulcer sacral region; - PSHx: 01:26 G tube; aa9 - Immunization history:: Adult Immunizations unknown. - Social history:: Smoking status: unknown. - Family history:: not pertinent. ROS: 01:36 Constitutional: Negative for fever, chills, and weight loss, Eyes: Negative for injury, anthony pain, redness, and discharge, Neck: Negative for injury, pain, and swelling, Cardiovascular: Negative for chest pain, palpitations, and edema, Respiratory: Negative for shortness of breath, cough, wheezing, and pleuritic chest pain, Abdomen/GI: Negative for abdominal pain, nausea, vomiting, diarrhea, and constipation, Back: Negative for injury and pain, : Negative for injury, bleeding, discharge, and swelling, MS/Extremity: Negative for injury and deformity, Skin: Negative for injury, rash, and discoloration, Neuro: Negative for headache, weakness, numbness, tingling, and seizure, Psych: Negative for depression, anxiety, suicide ideation, homicidal ideation, and hallucinations, Allergy/Immunology: Negative for hives, rash, and allergies, Endocrine: Negative for neck swelling, polydipsia, polyuria, polyphagia, and marked weight changes, Hematologic/Lymphatic: Negative for swollen nodes, abnormal bleeding, and unusual bruising. 01:36 ENT: Positive for injury or acute deformity, laceration. Exam: 01:36 Constitutional: This is a well developed, well nourished patient who is awake, alert, anthony and in no acute distress. Eyes: Pupils equal round and reactive to light, extra-ocular motions intact. Lids and lashes normal. Conjunctiva and sclera are non-icteric and not injected. Cornea within normal limits. Periorbital areas with no swelling, redness, or edema. ENT: Nares patent. No nasal discharge, no septal abnormalities noted. Tympanic membranes are normal and external auditory canals are clear. Oropharynx with no redness, swelling, or masses, exudates, or evidence of obstruction, uvula midline. Mucous membranes moist. Neck: Trachea midline, no thyromegaly or masses palpated, and no cervical lymphadenopathy. Supple, full range of motion without nuchal rigidity, or vertebral point tenderness. No Meningismus. Chest/axilla: Normal chest wall appearance and motion. Nontender with no deformity. No lesions are appreciated. Cardiovascular: Regular rate and rhythm with a normal S1 and S2. No gallops, murmurs, or rubs. Normal PMI, no JVD. No pulse deficits. Respiratory: Lungs have equal breath sounds bilaterally, clear to auscultation and percussion. No rales, rhonchi or wheezes noted. No increased work of breathing, no retractions or nasal flaring. Abdomen/GI: Soft, non-tender, with normal bowel sounds. No distension or tympany. No guarding or rebound. No evidence of tenderness throughout. Back: No spinal tenderness. No costovertebral tenderness. Full range of motion. Male : Normal genitalia with no discharge or lesions. Skin: Warm, dry with normal turgor. Normal color with no rashes, no lesions, and no evidence of cellulitis. MS/ Extremity: Pulses equal, no cyanosis. Neurovascular intact. Full, normal range of motion. Psych: Awake, alert, with orientation to person, place and time. Behavior, mood, and affect are within normal limits. 01:36 Head/face: Noted is a laceration(s), that is superficial, 1 cm(s). Vital Signs: 01:36 BP 133 / 94; Pulse 110; Resp 16 S; Temp 98.5(A); Pulse Ox 100% on R/A; Weight 43.54 kg aa9 (R); Height 5 ft. 4 in. (162.56 cm) (R); 03:22 BP 126 / 92; Pulse 62; Resp 18 S; Pulse Ox 97% on R/A; as6 01:36 Body Mass Index 16.48 (43.54 kg, 162.56 cm) aa9 Irish Coma Score: 01:36 Eye Response: spontaneous(4). Verbal Response: confused(4). Motor Response: localizes anthony pain(5). Total: 13. 01:38 Eye Response: spontaneous(4). Verbal Response: confused(4). Motor Response: localizes anthony pain(5). Total: 13. MDM: 01:06 Patient medically screened. anthony 01:38 Differential diagnosis: Contusion of Hematoma on Laceration of Intracranial bleed- anthony Concussion without LOC. cerebral contusion. Data reviewed: vital signs, nurses notes, radiologic studies, CT scan. Data interpreted: classroom monitor: rate is 85 beats/min, rhythm is regular, Pulse oximetry: on room air is 96 %. Counseling: I had a detailed discussion with the patient and/or guardian regarding: the historical points, exam findings, and any diagnostic results supporting the discharge/admit diagnosis, the need for outpatient follow up, for definitive care, an stumper feller. 04/03 01:08 Order name: CT Head C Spine anthony Administered Medications: 02:16 Drug: Neosporin (ktitbkvp-dmczqbumna-klqsnihbn) Ointment 1 application {Note: applied aa9 on bridge of nose.} Route: Topical; Site: wound; Disposition Summary: 04/03/22 01:41 Discharge Ordered Location: Home anthony Problem: new anthony Symptoms: are unchanged anthony Condition: Stable anthony Diagnosis - Fall (on) (from) other stairs and steps - bed anthony - Laceration without foreign body of nose anthony Followup: anthony - With: Private Physician - When: 2 - 3 days - Reason: Recheck today's complaints, Continuance of care, Re-evaluation by your physician Discharge Instructions: - Discharge Summary Sheet anthony - Head Injury, Adult anthony - Fall Prevention in the Home, Adult anthony - Fall Prevention in the Home, Adult, Pslm-ed-Vzmy anthony - Laceration Care, Adult anthony - Facial Laceration, Blee-cg-Ofoh anthony - Head Injury, Adult, Zpej-bh-Raox anthony Forms: - Medication Reconciliation Form anthony - Thank You Letter anthony - Antibiotic Education anthony - Prescription Opioid Use anthony - SBAR form wm Prescriptions: - Centany 2 % Topical ointment - apply 1 application by TOPICAL route 3 times per day; 15 gram; Refills: 0, anthony Product Selection Permitted Signatures: Dispatcher [employer] EDVidal Cummings MD MD cha Avalos, Aylin, RN RN aa9
--- NOTE | 2022-04-03 01:42 | ER ---
[facility]urse's Notes [facility] Name: Alexy Mock Age: 36 yrs Sex: Male : 1985 Arrival Date: 04/03/2022 Time: 01:06 Bed 5 Private MD: Diagnosis: Fall (on) (from) other stairs and steps-bed;Laceration without foreign body of nose Presentation: 04/03 01:24 Chief complaint: EMS states: called out to [facility], pt was found on the aa9 ground, 1 inch slit on the bridge of nose. pt was given 0.5 Ativan prior this evening, minimal bleeding observed. Ebola Screen: No symptoms or risks identified at this time. Initial Sepsis Screen: Does the patient meet any 2 criteria? No. Patient's initial sepsis screen is negative. Does the patient have a suspected source of infection? No. Patient's initial sepsis screen is negative. Risk Assessment: Do you want to hurt yourself or someone else? Patient reports no desire to harm self or others. Onset of symptoms was April 03, 2022. 01:24 Method Of Arrival: EMS: [facility] aa9 01:24 Acuity: ELROY 3 aa9 03:42 Coronavirus screen: At this time, the client does not indicate any symptoms associated as6 with coronavirus-19. Triage Assessment: 01:27 General: Appears uncomfortable, slender, Behavior is agitated, anxious. Pain: Unable to aa9 use pain scale. Patient appears agitated, restless. Cardiovascular: Patient's skin is warm and dry. Respiratory: Airway is patent Respiratory effort is even, unlabored, Respiratory pattern is regular. GI: PEG tube in place, clamped. Historical: - Allergies: :26 No Known Allergies; aa9 - PMHx: :26 abnormal liver function; adhd; Anemia; Bipolar disorder; DYSPHAGIA; ENCEPHALOPATHY; aa9 epilepsy; Hypothyroidism; MR; pressure ulcer sacral region; - PSHx: :26 G tube; aa9 - Immunization history:: Adult Immunizations unknown. - Social history:: Smoking status: unknown. - Family history:: not pertinent. Screenin:29 Abuse screen: Denies threats or abuse. Denies injuries from another. Nutritional aa9 screening: PEG tube in place. Tuberculosis screening: No symptoms or risk factors identified. Fall Risk Fall in past 12 months (25 points). Secondary diagnosis (15 points) impaired mobility, Ambulatory Aid- None/Bed Rest/Nurse Assist (0 pts). Gait- Normal/Bed Rest/Wheelchair (0 pts). Assessment: 02:39 General: discharge pending CT results . as6 03:02 General: report called to [facility] nurse Karen. reported that they would as6 have transport around 6 AM. Vital Signs: 01:36 BP 133 / 94; Pulse 110; Resp 16 S; Temp 98.5(A); Pulse Ox 100% on R/A; Weight 43.54 kg aa9 (R); Height 5 ft. 4 in. (162.56 cm) (R); 03:22 BP 126 / 92; Pulse 62; Resp 18 S; Pulse Ox 97% on R/A; as6 01:36 Body Mass Index 16.48 (43.54 kg, 162.56 cm) aa9 Marion Coma Score: 01:36 Eye Response: spontaneous(4). Verbal Response: confused(4). Motor Response: localizes anthony pain(5). Total: 13. 01:38 Eye Response: spontaneous(4). Verbal Response: confused(4). Motor Response: localizes anthony pain(5). Total: 13. ED Course: 01:06 Patient arrived in ED. tw5 01:06 Vidal Gomez MD is Attending Physician. anthony 01:17 Peyton Ruano, RN is Primary Nurse. aa9 01:26 Triage completed. aa9 01:29 Arm band placed on right wrist. aa9 01:30 Patient has correct armband on for positive identification. Bed in low position. Side aa9 rails up X2. Seizure precautions initiated. 03:41 No provider procedures requiring assistance completed. Patient did not have IV access as6 during this emergency room visit. Administered Medications: 02:16 Drug: Neosporin (ihsussrz-slqljzwhjk-nhxfdtwpa) Ointment 1 application {Note: applied aa9 on bridge of nose.} Route: Topical; Site: wound; Medication: 03:42 VIS not applicable for this client. as6 Outcome: 01:41 Discharge ordered by . anthony 03:41 Discharged to intermediate. Report called to Karen as6 03:41 Condition: stable 03:41 Discharge instructions given to intermediate, Instructed on discharge instructions, follow up and referral plans. medication usage, Demonstrated understanding of instructions, follow-up care, medications, Prescriptions given X 1. 03:42 Patient left the ED. as6 Signatures: Vidal Gomez MD MD cha Wood, Tiffany tw5 Marbin Salomon RN RN as6 Peyton Ruano RN RN aa9
[2022-04-03 12:45] VITALS: TEMP 98.5
[2022-04-03 12:46] VITALS: BP 126/92; O2SAT 97
--- NOTE | 2022-04-03 20:51 | RAD REPORT ---
EXAM DESCRIPTION: CT - CTHCSPWOC - 04/03/2022 2:32 am CLINICAL HISTORY: The patient is 36 years old and is Male; fall TECHNIQUE: Axial computed tomography images of the head/brain and cervical spine without intravenous contrast. Sagittal and coronal reformatted images were created and reviewed. This CT exam was pe rformed using one or more of the following dose reduction techniques: automated exposure control, a djustment of the mA and/or kV according to patient size, and/or use of iterative reconstruction techn ique. DLP: 1153 mGy*cm COMPARISON: CT head and cervical spine dated 03/22/2022. FINDINGS: BRAIN: Unremarkable. No hemorrhage. No significant white matter disease. No edema. VENTRICLES: Unremarkable. No ventriculomegaly. SKULL: No acute fracture. SINUSES: Unremarkable as visualized. No acute sinusitis. MASTOID AIR CELLS: Unremarkable as visualized. No mastoid effusion. VERTEBRAE: Unremarkable. No acute fracture. Normal alignment. DISCS/SPINAL CANAL/NEURAL FORAMINA: No acute findings. No spinal canal stenosis. SOFT TISSUES: Asymmetric thickening and calcification of the left ear. Pression. IMPRESSION: 1. No acute intracranial abnormality. 2. No acute cervical spine fracture or subluxation. Electronically signed by: Sachin Reynolds DO 04/03/2022 2:53 AM CDT Due to temporary technical issues with the PACS/Fluency reporting system, reports are being signed by the in house radiologists without review as a courtesy to insure prompt reporting. The interpreting radiologist is fully responsible for the content of the report.
== END 2022-04-03 03:42 | disposition home or self-care (01) ==
LOC: ER 01:03
DX: S01.21XA Laceration without foreign body of nose, initial encounter (principal); W06.XXXA Fall from bed, initial encounter
CPT/HCPCS: 70450; 72125; 99283

== ENCOUNTER 2022-04-04 22:40 | Emergency (ER) | payer OTHER ==
--- OUTSIDE RECORDS SUMMARY | 2022-04-04 22:53 | XMS REPORT | Continuity of Care Document ---
:1985 Author Organization [facility] t Address [address] [place] [address] Care Team Providers Name Role Phone Asked, No Pcp Primary Care Physician Unavailable WANDA SHUKLA Attending Clinician Unavailable KAMILLE BETTENCOURT Attending Clinician Unavailable [email or web address]_Vishnu Attending Clinician Unavailable Mariela Linares Attending Clinician [phone] Damir Nieves Attending Clinician [phone] Isidoro Kumar Attending Clinician ISIDORO KUMAR Attending Clinician Unavailable ANNIE MOON Attending Clinician Unavailable ARVIND LOWE Attending Clinician Unavailable Arvind Lowe Attending Clinician Chris Vega Attending Clinician [phone] Ai BECKER, Modesto Cruz Attending Clinician [phone] MODESTO CLOUD Attending Clinician Unavailable Zain David Attending Clinician Unavailable Molina Hernández MD Attending Clinician Thiago BECKER, Annie Henley Attending Clinician Lion Parry MD, Kym Attending Clinician [phone] Richardson BECKER, Marla Polanco Attending Clinician Elida Peter MD Attending Clinician Seun Lucero, Malissa Martin Attending Clinician + [phone] ELIDA PETER Attending Clinician Unavailable KYM GUTIERREZ Attending Clinician Unavailable Wanda Shukla Attending Clinician Barrera Anderson MD Attending Clinician [phone] BARRERA ANDERSON Attending Clinician Unavailable Brii Campbell [...] Lowe Admitting Clinician Chris Vega Admitting Clinician [phone] Physician, No Primary or Family Admitting Clinician Unavaila MALISSA Telles Admitting Clinician Unavailable Nasra Deeshanna Kianna Admitting Clinician Annette Butler Admitting Clinician Vijay Combs Admitting Clinician Payers Payer Name Policy Type Policy Number Effective Date Expiration Date S [place] MEDICA[place] [id number] 2018 00:00:00 MEDICARE PART A & [id number] 2010 B 00:00:00 [place]: [id number] 2010 [employer] 00:00:00 [place] [id number] [place] [id number] MAO SSI [id number] 2018 RELATED 00:00:00 Problems Condition Condition Condition Status Onset Resolution Last Treating Co mments Source Name Details Category Date Date Treatment Clinician Date Mechanical Mechanical Problem Active [facility] complicati Complicati 9-30 Me dical on of on of 00:00: gastrostom Gastrostom 00 y y Bed-ridden Bed-ridden Problem Active [facility] 03-29 Medical 00:00: 00 Seen in Seen in Problem Active [facility] - [facility] Home 00:00: 00 At high At High Problem Active [facility] risk for Risk for 03-29 Medica l fall Fall 00:00: 00 Chronic Chronic Problem Active [facility] pain Pain 03-25 Medical following Following 00:00: trauma Trauma 00 Influenza Influenza Problem Active [facility]i via 03-25 Medical 00:00: 00 COVID-19 Covid-19 Problem Active [facility] a 03-25 Medical 00:00: 00 Total Total Problem Active [facility] self-care Self-care 8-28 Medi jonatan deficit Deficit 00:00: 00 Pressure Pressure Problem Active [facility] a injury of Injury of 02-25 Medi jonatan sacral Sacral 00:00: region of Region of 00 back 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 00:00: 00 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 8-25 Me dical ia ia 00:00: 00 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 [...] AMS Disease Active [facility] (altered (altered 12-03 [facility] mental mental 00:00: status) status) 00 Head [...] ris disorder disorder 02-20 Health 00:00: 00 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 Protein-ca [...] liver Liver Medical enzymes Enzymes level Level 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 He alth Suicidal Suicidal Disease Active [facility] ideation ideation Health Aggressive Aggressive Disease Active H arris behavior, behavior, Heal th adult adult Other Other Disease Active [facility] insomnia insomnia Health Bipolar 1 Bipolar 1 Disease Active [facility] ris disorder disorder Health Elevated Elevated Disease Active [facility] lithium lithium Health level level Anemia Anemia Disease Active [facility] Weight Weight Disease Active [facility] loss loss Health Agitation Agitation Disease Active [facility] Allergies, Adverse Reactions, Alerts Allergy Allergy Status Severity Reaction(s) Onset Inactive Treating Comm ents Source Name Type Date Date Clinician No Known DA Active U [facility] 08 [facility] 00:[facility]: d 00 [facility] [place] No Known DA Active U 2016-07 [facility] Allergie 1-25 [facility] 00:00: d 00 [facility] [place] No Known DA Active U 2016-07 [facility] Allergie -25 Clear s 00:00: Andre 00 [facility] NO KNOWN Allergy Active [facility] Social History Social Habit Start Date Stop Date Quantity Comments Source History [facility] Food [facility] Worry History [facility] Food 2021-12-23 2021-12-23 1 [facility] Scarcity 00:00:00 00:00:00 Tobacco use and 2021-12-23 2021-12-23 Smokeless tobacco [facility] exposure 00:00:00 00:00:00 non-user Alcohol intake 2021-12-23 2021-12-23 [facility]00 non-drinker (finding) Sex [birth year] At [birth year] Talha jordan 00:00:00 00:00:00 Smoking Status Start Date Stop Date Source Never Smoker [facility] Tobacco smoking consumption unknown Religion [facility] Medications Ordered Filled Start Stop Current [...] :00 for 1 Center dose. furosemide 2021-0 2022- No 20mg QD Take 1 [facility] [...] (two) Center times daily. tamsulosin 2021- No [facility] .4mg QD Take 1 [facility] (FLOMAX) 6-15 09-13 l capsule by Heal th 0.4 mg 00:00: 23:59 disability mouth capsule 00 :00 daily for 90 days. Start 12/16/21. haloperidoL 2021-2021- No [facility] 10mg QD Take [...] (FLOMAX) 6-15 09-[address] [facility] th 0.4 mg 00:00: 23:59 disability mouth capsule 00 :00 daily for 90 days. Start 12/16/21. haloperidoL 2021- No [facility] 10mg QD Take 1 [place] (HALDOL) 10 6-15 09-13 l tablet by alth mg tablet 00:00: 23:59 disability mouth 00 :00 daily for 90 days. Start 12/16/21. tamsulosin 2021- No [facility] .4mg QD Take 1 [place] (FLOMAX) 6-15 09-13 l capsule by [facility] 0.4 mg 00:00: 23:59 disability mouth capsule 00 :00 daily for 90 days. Start 12/16/21. haloperidoL 2021- No [facility] 10mg QD Take 1 [place] (HALDOL) 10 6-15 09-13 l tablet by alth mg tablet 00:00: 23:59 disability mouth 00 :00 daily for 90 days. Start 12/16/21. tamsulosin 2021- No [facility] .4mg QD Take 1 [facility] (FLOMAX) 6-15 09-[address] [facility] th 0.4 mg 00:00: 23:59 disability [...] (FLOMAX) 6-15 09-[address] [facility] th 0.4 mg 00:00: 23:59 disability mouth capsule 00 :00 daily for 90 days. Start 12/16/21. haloperidoL 2021- No [facility] 10mg QD Take 1 [place] (HALDOL) 10 6-15 09-13 l tablet by alth mg tablet 00:00: 23:59 disability mouth 00 :00 daily for 90 days. Start 12/16/21. tamsulosin 2021- No [facility] .4mg QD Take 1 [place] (FLOMAX) 6-15 09-13 l capsule by [facility] 0.4 mg 00:00: 23:59 disability mouth capsule 00 :00 daily for 90 days. Start 12/16/21. haloperidoL 2021- No [facility] 10mg QD Take 1 [facility] (HALDOL) 10 6-15 09-13 l tablet by alth mg tablet 00:00: 23:59 disability mouth 00 :00 daily for 90 days. Start 12/16/21. tamsulosin 2021- No [facility] .4mg QD Take 1 [place] (FLOMAX) 6-15 09-13 l capsule by [facility] 0.4 mg 00:00: 23:59 disability mouth capsule 00 :00 daily for 90 days. Start 12/16/21. haloperidoL 2021- No [facility] 10mg QD Take 1 [place] (HALDOL) 10 6-15 09-13 l tablet by alth mg tablet 00:00: 23:59 disability mouth 00 :00 daily for 90 days. Start 12/16/21. tamsulosin 2021- No [facility] .4mg QD Take 1 [place] (FLOMAX) 6-15 09-13 l capsule by [facility] 0.4 mg 00:00: 23:59 disability mouth capsule 00 :00 daily for 90 days. Start 12/16/21. haloperidoL 2021- No [facility] 10mg QD Take 1 [place] (HALDOL) 10 6-15 09-13 l tablet by alth mg tablet 00:00: 23:59 disability mouth 00 :00 daily for 90 days. Start 12/16/21. tamsulosin 2021- No .4mg Take 0.[address] [facility] [address] (FLOMAX) 6-15 09-13 [facility] mg Cap 00:00: 23:59 mouth. Medi ojnatan 24 hr 00 :00 Center capsule tamsulosin [...] 00 :00 Center capsule clonazePAM 2022-0 Yes Bipolar 1 .25mg Q.5D [...] [facility] 0.5 MG 00:00: mouth. Medical tablet [address] [place] [address] clonazePAM 2-0 Yes .25mg Take 0.[address] (KlonoPIN) 6-14 mg by [facility] 0.5 MG 00:00: mouth. Medical tablet [address] [place] [address] clonazePAM 2-0 Yes .25mg Take 0.[address] (KlonoPIN) 6-14 mg by [facility] 0.5 MG 00:00: mouth. Medical tablet [address] [place] [address] clonazePAM 2021-0 Yes .25mg Take 0.[address] (KlonoPIN) 6-14 mg by [facility] 0.5 MG 00:00: mouth. Medical tablet [address] [place] [address] clonazePAM 2-0 Yes .25mg Take 0.[address] (KlonoPIN) 6-14 mg by [facility] 0.5 MG 00:00: mouth. Medical tablet [address] [place] [address] clonazePAM 2-0 Yes .25mg Take 0.[address] (KlonoPIN) 6-14 mg by [facility] 0.5 MG 00:00: mouth. Medical tablet [address] [place] [address] clonazePAM 2021-0 Yes .25mg Take 0.[address] (KlonoPIN) 6-14 mg by [facility] 0.5 MG 00:00: mouth. Medical tablet [address] [place] [address] clonazePAM 2021-0 Yes .25mg Take 0.[address] (KlonoPIN) 6-14 mg by [facility] 0.5 MG 00:00: mouth. Medical tablet [address] [place] [address] sennosides- 2021-0 2021- No [facility] 2{tbl} Q.5D Take 2 [facility] docusate 6- 09-12 l tablets by [facility] sodium 00:00: 23:59 disability mouth 2 (SENNA 00 :00 (two) PLUS) times a 8.6-50 mg day for 90 tablet days mirtazapine 2021-0 2021- No [facility] 15mg Take 1 [place] (REMERON) 6- 09-12 l tablet by [facility] 15 mg 00:00: 23:59 disability mouth at tablet 00 :00 bedtime nightly for 90 days lithium 2021-0 2021- No [facility] 300mg Q.5D Take 1 [place] carbonate 6-14 09-[address] [facility] (ESKALITH) 00:00: 23:59 disability mouth 2 300 mg 00 :00 (two) capsule times a day for 90 days haloperidoL 2021-2021- No [facility] 20mg Take 2 [place] (HALDOL) 10 6-14 09-12 l tablets by H ealth mg tablet 00:00: 23:59 disability mouth at 00 :00 bedtime nightly for 90 days cloNIDine 2021-2021- No [facility] .1mg Take 1 [place] HCL 6-14 09-12 l tablet by [facility] (CATAPRES) 00:00: 23:59 disability mouth 0.1 mg 00 :00 every tablet evening amitriptyli 2021- No [facility] 10mg Take 1 [place] ne (ELAVIL) 6-14 09-12 l tablet [facility] 10 mg 00:00: 23:59 disability mouth at tablet 00 :00 bedtime nightly sennosides- 2021- No [facility] 2{tbl} Q.5D Take 2 [place] docusate 6-14 09-12 l tablets by [facility] sodium 00:00: 23:59 disability mouth 2 (SENNA 00 :00 (two) PLUS) times a 8.6-50 mg day for 90 tablet days mirtazapine 2021- No [facility] 15mg Take 1 [place] (REMERON) 6-14 09-12 l tablet by [facility] 15 mg 00:00: 23:59 disability mouth at tablet 00 :00 bedtime nightly for 90 days lithium 2021-0 2021- No [facility] 300mg Q.5D Take 1 [place] carbonate 6-14 09-12 l capsule by [facility] [place] (KALITH) 00:00: 23:59 disability mouth 2 300 [...] [place] HCL 6-14 09-12 l tablet by [facility] (CATAPRES) 00:00: 23:59 disability mouth [...] [place] carbonate 6-14 09-12 l capsule by [facility] (ESKALITH) 00:00: 23:59 disability mouth 2 300 mg 00 :00 (two) capsule times a day for 90 days haloperidoL 2021- No [facility] 20mg Take 2 [place] (HALDOL) 10 6-14 09-12 l tablets by ealth mg tablet 00:00: 23:59 disability mouth at 00 :00 bedtime nightly for 90 days cloNIDine 2021- No [facility] .1mg Take 1 [place] HCL 6-14 09-12 l tablet by [facility] (CATAPRES) 00:00: 23:59 disability mouth [...] [place] (REMERON) 6-14 09-12 l tablet by [facility] 15 mg 00:00: 23:59 disability mouth at tablet 00 :00 bedtime nightly for 90 days lithium 2021- No [facility] 300mg Q.5D Take 1 [place] carbonate 6-14 09-[address] [facility] ([facility]) 00:00: 23:59 disability mouth 2 300 mg 00 :00 (two) capsule times a day for 90 days haloperidoL 2021- No [facility] 20mg Take 2 [place] (HALDOL) 10 6-14 09-12 l tablets by ealth mg tablet 00:00: 23:59 disability mouth at 00 :00 bedtime nightly for 90 days cloNIDine 2021- No [facility] .1mg Take 1 [place] HCL 6-14 09-12 l tablet by [facility]) 00:00: 23:59 disability mouth 0.1 mg 00 :00 every tablet evening amitriptyli 2021- No [facility] 10mg Take 1 [place] ne (ELAVIL) 6-14 09-12 l tablet by [facility] 10 mg 00:00: 23:59 disability mouth at tablet 00 :00 bedtime nightly sennosides- 2021- No [facility] 2{tbl} Q.5D Take 2 [place] docusate 6-14 09-12 l tablets by [facility] sodium 00:00: 23:59 disability mouth 2 (SENNA 00 :00 (two) PLUS) times a 8.6-50 mg day for 90 tablet days mirtazapine 2021- No [facility] 15mg Take 1 [place] (REMERON) 6-14 09-12 l tablet by [facility] 15 mg 00:00: 23:59 disability mouth at tablet 00 :00 bedtime nightly for 90 days lithium 2021-2021- No [facility] 300mg Q.5D Take 1 [place] carbonate 6-14 09-[address] [facility] ([facility]) 00:00: 23:59 disability mouth 2 300 mg 00 :00 (two) capsule times a day for 90 days haloperidoL 2021-2021- No [facility] 20mg Take 2 [place] (HALDOL) 10 6-14 09-12 l tablets by ealth mg tablet 00:00: 23:59 disability mouth at 00 :00 bedtime nightly for 90 days cloNIDine 2021-2021- No [facility] .1mg Take 1 [place] HCL 6-14 09-12 l tablet by [facility] (CATAPRES) 00:00: 23:59 disability mouth 0.1 mg 00 :00 every tablet evening amitriptyli 2021- No [facility] 10mg Take 1 [place] [facility] (ELAVIL) 6-14 09-12 l tablet by alth 10 mg 00:00: 23:59 disability mouth at tablet 00 :00 bedtime nightly sennosides- 2021- No [facility] 2{tbl} Q.5D Take 2 [place] docusate 6-14 09-12 l tablets by [facility] sodium 00:00: 23:59 disability mouth 2 (SENNA 00 :00 (two) PLUS) times a 8.6-50 mg day for 90 tablet days mirtazapine 2021- No [facility] 15mg Take 1 [place] (REMERON) 6-14 09-12 l tablet by [facility] 15 mg 00:00: 23:59 disability mouth at tablet 00 :00 bedtime nightly for 90 days lithium 2021- No [facility] 300mg Q.5D Take 1 [place] carbonate 6-14 09-12 l capsule by [facility] [place] ([facility]) 00:00: 23:59 disability mouth 2 300 mg 00 :00 (two) capsule times a day for 90 days haloperidoL 2021-2021- No [facility] 20mg Take 2 [place] (HALDOL) 10 6-14 09-12 l tablets by ealth mg tablet 00:00: 23:59 disability mouth at 00 :00 bedtime nightly for 90 days cloNIDine 2021- No [facility] .1mg Take 1 [place] HCL 6-14 09-12 l tablet by [facility] (CATAPRES) 00:00: 23:59 disability mouth [...] [place] (REMERON) 6-14 09-12 l tablet by [facility] 15 mg 00:00: 23:59 disability mouth [...] [place] HCL 6-14 09-12 l tablet by [facility] (CATAPRES) 00:00: 23:59 disability mouth [...] [place] (REMERON) 6-14 09-12 l tablet by [facility] 15 mg 00:00: 23:59 disability mouth at tablet 00 :00 bedtime nightly for 90 days lithium 2021- No [facility] 300mg Q.5D Take 1 [place] carbonate 6-14 09-[address] [facility] (ESKALITH) 00:00: 23:59 disability mouth 2 300 mg 00 :00 (two) capsule times a day for 90 days haloperidoL 2021- No [facility] 20mg Take 2 [place] (HALDOL) 10 6-14 09-12 l tablets by H ealth mg tablet 00:00: 23:59 disability mouth at 00 :00 bedtime nightly for 90 days cloNIDine 2021- No [facility] .1mg Take 1 [place] HCL 6-14 09-12 l tablet by [facility] (CATAPRES) 00:00: 23:59 disability mouth 0.1 mg 00 :00 every tablet evening amitriptyli 2021- No [facility] 10mg Take 1 [place] ne (ELAVIL) 6-14 09-12 l tablet by [facility] 10 mg 00:00: 23:59 disability [...] [place] carbonate 6-14 09-[address] [facility] (ESKALITH) 00:00: 23:59 disability mouth 2 300 mg 00 :00 (two) capsule times a day for 90 days haloperidoL 2021- No [facility] 20mg Take 2 [place] (HALDOL) 10 6-14 09-12 l tablets by H ealth mg tablet 00:00: 23:59 disability mouth at 00 :00 bedtime nightly for 90 days cloNIDine 2021- No [facility] .1mg Take 1 [place] HCL 6-14 09-12 l tablet by [facility] (CATAPRES) 00:00: 23:59 disability mouth 0.1 mg 00 :00 every tablet evening amitriptyli 2-2021- No [facility] 10mg Take 1 [place] ne [...] Center daily. lithium 300 2022-0 Yes 300mg Q.[id number] Take [address] MG capsule 5-27 [id number] mg by [facility] 00:00: 3D mouth 3 Medical 00 (three) Center times daily. lithium 300 2022-0 Yes 300mg Q.[id number] Take [address] MG capsule 5-27 [id number] mg by [facility] 00:00: 3D mouth 3 Medical 00 (three) Center times daily. lithium 300 2022-0 Yes 300mg Q.[id number] Take [address] MG capsule 5-27 [id number] mg by [facility] 00:00: 3D mouth 3 Medical 00 (three) Center times daily. lithium 300 2022-0 Yes 300mg Q.[id number] Take [address] MG capsule 5-27 [id number] mg by [facility] 00:00: 3D mouth 3 Medical 00 (three) Center times daily. lithium 300 2022-0 Yes 300mg Q.[id number] Take [address] MG capsule 5-27 [id number] mg by [facility] 00:00: 3D mouth 3 Medical 00 (three) Center times daily. lithium 300 2022-0 Yes 300mg Q.[id number] Take [address] MG capsule 5-27 [id number] mg by [facility] 00:00: 3D mouth 3 Medical 00 (three) Center times daily. lithium 300 2022-0 Yes 300mg Q.[id number] Take [address] MG capsule 5-27 [id number] mg by [facility] 00:00: 3D mouth 3 Medical 00 (three) Center times daily. lithium 300 2022-0 Yes 300mg Q.[id number] Take [address] MG capsule 5-27 [id number] mg by [facility] 00:00: 3D mouth 3 Medical 00 (three) Center times daily. lithium 300 2022-0 Yes 300mg Q.[id number] Take [address] MG capsule 5-27 [id number] mg by [facility] 00:00: 3D mouth [...] times Center daily. propranoloL 2021-0 Yes 40mg Q.[id number] Take [address] [facility] (INDERAL) 5-25 [id number] by mouth 3 [facility] 40 MG 16:23: 3D (three) Medical tablet 12 times Center daily. traZODone 2021-0 Yes 100mg QD Take [address] (DESYREL) 5-25 mg by [facility] 100 MG 16:23: mouth Medical tablet 12 nightly. [place] amitriptyli 0 Yes 10mg QD Take 10 [...] 15 MG 16:23: nightly. Medical tablet 12 [place] OLANZapine 0 Yes 10mg QD Take [address] (ZYPREXA) 5-25 by mouth [facility] 10 MG 16:23: nightly. Medical tablet 12 [place] primidone 2021-0 Yes 50mg Q.25D Take [address] (MYSOLINE) 5-25 by mouth 4 [facility]ie es 50 MG 16:23: (four) Medical tablet 12 times Center daily. propranoloL 2021-0 Yes 40mg Q.[id number] Take [address] [facility] [facility] (INDERAL) 5-25 [id number] by mouth 3 [facility] 40 MG 16:23: 3D (three) Medical tablet 12 times Center daily. traZODone 2021-0 Yes 100mg QD Take [address] (DESYREL) 5-25 mg by [facility] 100 MG 16:23: mouth Medical tablet 12 nightly. [place] amitriptyli Yes 10mg QD Take [address] ne (ELAVIL) 5-25 by mouth [facility] 10 MG 16:23: nightly. Medical tablet 12 [place] benztropine 0 Yes 2mg Q.5D Take 2 [...] 15 MG 16:23: nightly. Medical tablet 12 [place] OLANZapine 2021-0 Yes 10mg QD Take [address] (ZYPREXA) 5-25 by mouth [facility] 10 MG 16:23: nightly. Medical tablet 12 [place] primidone 2021-0 Yes 50mg Q.25D Take [address] (MYSOLINE) 5-25 by mouth 4 [facility] 50 MG 16:23: (four) Medical tablet 12 times Center daily. propranoloL 202-0 Yes 40mg Q.[id number] Take [address] [facility] [facility] (INDERAL) 5-25 [id number] by mouth 3 [facility] 40 MG 16:23: 3D (three) Medical tablet 12 times Center daily. traZODone 2021-0 Yes 100mg QD Take [address] (DESYREL) 5-25 mg by [facility] 100 MG 16:23: mouth Medical tablet 12 nightly. [place] amitriptyli 2021-0 Yes 10mg QD Take 10 [...] Medical tablet 12 times Center daily. propranoloL 2-0 Yes 40mg Q.[id number] Take [address] (INDERAL) 5-25 [id number] by mouth 3 [facility] 40 MG 16:23: 3D (three) Medical tablet 12 times Center daily. traZODone 202-0 Yes 100mg QD Take [address] (DESYREL) 5-25 mg by [facility] 100 MG 16:23: mouth Medical tablet 12 nightly. [place] amitriptyli 2021-0 Yes 10mg QD Take [address] ne (ELAVIL) 5-25 by mouth Luke [facility] 10 MG 16:23: nightly. Medical tablet 12 [place] benztropine 2021-0 Yes 2mg Q.5D Take 2 [...] 15 MG 16:23: nightly. Medical tablet 12 [place] OLANZapine 2021-0 Yes 10mg QD Take [address] (ZYPREXA) 5-25 by mouth [facility] 10 MG 16:23: nightly. Medical tablet 12 [place] primidone 2021-0 Yes 50mg Q.25D Take [address] (MYSOLINE) 5-25 by mouth 4 [facility] 50 MG 16:23: (four) Medical tablet 12 times Center daily. propranoloL 2022-0 Yes 40mg Q.[id number] Take [address] [facility] [facility] (INDERAL) 5-25 [id number] by mouth 3 [facility] 40 MG 16:23: 3D (three) Medical tablet 12 times Center daily. traZODone 2022-0 Yes 100mg QD Take [address] (DESYREL) 5-25 mg by [facility] 100 MG 16:23: mouth Medical tablet 12 nightly. [place] amitriptyli 2021-0 Yes 10mg QD Take 10 [...] 15 MG 16:23: nightly. Medical tablet 12 [place] OLANZapine 0 Yes 10mg QD Take [address] (ZYPREXA) 5-25 by mouth [facility] 10 MG 16:23: nightly. Medical tablet 12 [place] primidone 0 Yes 50mg Q.25D Take [address] (MYSOLINE) 5-25 by mouth 4 [facility] 50 MG 16:23: (four) Medical tablet 12 times Center daily. propranoloL 2021-0 Yes 40mg Q.[id number] Take [address] [facility] (INDERAL) 5-25 [id number] by mouth 3 [facility] 40 MG 16:23: [...] times Center daily. propranoloL 0 Yes 40mg Q.[id number] Take [address] [facility] (INDERAL) 5-25 [id number] by mouth 3 [facility] 40 MG 16:23: 3D (three) Medical tablet 12 times Center daily. traZODone 0 Yes 100mg QD Take [address] (DESYREL) 5-25 mg by [facility] 100 MG 16:23: mouth Medical tablet 12 nightly. [place] amitriptyli 0 Yes 10mg QD Take 10 [...] 15 MG 16:23: nightly. Medical tablet 12 [place] OLANZapine 2021-0 Yes 10mg QD Take [address] (ZYPREXA) 5-25 by mouth [facility] 10 MG 16:23: nightly. Medical tablet 12 [place] primidone 2021-0 Yes 50mg Q.25D Take [address] (MYSOLINE) 5-25 by mouth 4 [facility] 50 MG 16:23: (four) Medical tablet 12 times Center daily. propranoloL 2021-0 Yes 40mg Q.[id number] Take [address] [facility] (INDERAL) 5-25 [id number] by mouth 3 [facility] 40 MG 16:23: 3D (three) Medical tablet 12 times Center daily. traZODone 0 Yes 100mg QD Take [address] (DESYREL) 5-25 mg by [facility] 100 MG 16:23: mouth Medical tablet 12 nightly. [place] amitriptyli 0 Yes 10mg QD Take [address] ne (ELAVIL) 5-25 by mouth [facility] 10 MG 16:23: nightly. Medical tablet 12 [place] benztropine 0 Yes 2mg Q.5D Take 2 [...] 15 MG 16:23: nightly. Medical tablet 12 [place] OLANZapine 0 Yes 10mg QD Take [address] (ZYPREXA) 5-25 by mouth [facility] 10 MG 16:23: nightly. Medical tablet 12 Center primidone 0 Yes 50mg Q.25D Take [address] (MYSOLINE) 5-25 by mouth 4 [facility] es 50 MG 16:23: (four) Medical tablet 12 times Center daily. propranoloL 0 Yes 40mg Q.[id number] Take [address] [facility] (INDERAL) 5-25 [id number] by mouth 3 [facility] 40 MG 16:23: 3D (three) Medical tablet 12 times Center daily. traZODone 0 Yes 100mg QD Take [address] (DESYREL) 5-25 mg by [facility] 100 MG 16:23: mouth Medical tablet 12 nightly. [place] amitriptyli Yes 10mg QD Take [address] [facility] ne (ELAVIL) 5-25 by mouth [facility] 10 MG 16:23: nightly. Medical tablet 12 Center benztropine 0 Yes 2mg Q.5D Take [address] (COGENTIN) 5-25 by mouth 2 [facility] es 2 MG tablet 16:23: (two) Medic al 12 times Center daily. clorazepate Yes 3.75mg Q.5D Take 3.[address] (TRANXENE) 5-25 mg by [facility] 3.75 MG 16:23: mouth 2 Medical tablet 12 (two) Center times daily. haloperidoL Yes 10mg Q.25D Take 10 mg [facility] [...] :00 5 days. Center gram/dose powder polyethylen 2022021- No 17g QD Take 17 g [facility] [...] M edical 17 00 :00 5 days. [place] gram/dose powder polyethylen 2021- No 17g QD [...] palencia Height 2022-03-23 00:00:00 70 [in_i] Laine Polanco edical BMI (Body Mass Index) 2022-03-23 00:00:00 13.6 kg/m2 [facility] BP Systolic 2022-03-23 00:00:00 115 mm[Hg] Liane [facility] Body Weight 2022-03-23 00:00:00 1520 [oz_av] Laine Polanco edical BP Diastolic 2022-03-22 00:00:00 55 mm[Hg] L[facility] Polanco [facility]ical Height 2022-03-22 00:00:00 70 [in_i] Laine Polanco edical BMI (Body Mass Index) 2022-03-22 00:00:00 13.4 kg/m2 [facility] BP Systolic 2022-03-22 00:00:00 104 mm[Hg] [...] kg Systolic blood 2022-01-12 17:37:00 114 mm[Hg] [facility] Diastolic blood 2022-01-12 17:37:00 74 mm[Hg] [facility] Heart rate 2022-01-12 17:37:00 60 /min [facility] Respiratory rate 2022-01-12 17:37:00 16 /min [facility] Oxygen saturation in 2022-01-12 17:37:00 98 /min [facility] Arterial blood by Medical Ce nter Pulse oximetry Body temperature 2022-01-12 15:34:00 36.67 Darling [facility] Body height 2022-01-12 15:34:00 162.6 cm [facility] Body weight 2022-01-12 15:34:00 54.432 kg [facility] BMI 2022-01-12 15:34:00 20.60 kg/m2 [facility] Systolic blood 2021-12-23 11:21:00 89 mm[Hg] [facility] pressure Diastolic blood 2021-12-23 11:21:00 56 mm[Hg] [facility] Heart rate 2021-12-23 11:21:00 64 /min [facility] [place] Respiratory rate 2021-12-23 11:21:00 18 /min [facility] Body height 2021-12-23 11:21:00 167.6 cm [facility] Body weight 2021-12-23 11:21:00 51.71 kg [facility] [place] BMI 2021-12-23 11:21:00 18.40 kg/m2 [facility] Body temperature 2021-12-16 11:10:00 37.06 Darling [facility] Oxygen saturation in 2021-12-16 11:10:00 97 /min [facility] Arterial blood by Pulse oximetry Systolic blood 2021-07-30 18:40:00 102 mm[Hg] [facility] Diastolic blood 2021-07-30 18:40:00 60 mm[Hg] [facility] Heart rate 2021-07-30 18:40:00 56 /min [facility] Body temperature 2021-07-30 18:40:00 36.61 Darling [facility] Respiratory rate 2021-07-30 18:40:00 20 /min [facility] Body height 2021-07-30 18:40:00 177.8 cm [facility] Body weight 2021-07-30 18:40:00 54.1 kg [facility] BMI 2021-07-30 18:40:00 17.11 kg/m2 [facility] Oxygen saturation in 2021-07-30 18:40:00 100 /min [facility] Arterial blood by Medical Ce nter Pulse oximetry Procedures Procedure Date / Time Performed Performing Clinician Sourc e CBC W/PLT COUNT & AUTO 2022-01-12 16:35:00 [place] Cloud [facility] COMPREHENSIVE METABOLIC 2022-01-12 16:35:[address] [place] [address] [facility] PANEL [facility] B-TYPE NATRIURETIC FACTOR 2022-01-12 16:35:00 [place] Cloud [facility]NP[facility] CBC W/PLT COUNT & AUTO 2022-01-12 16:35:[address] [address] [facility] DIFFERENTIAL [facility] CBC (WITHOUT 2021-12-23 12:16:00 Annie Moon [facility] ealth DIFFERENTIAL) COMPREHENSIVE METABOLIC 2021-12-23 12:16:00 Annie Moon [facility] PANEL HGB/HCT 2021-12-15 15:09:00 Ruthy Matthews akin lth XRAY MODIFIED BARIUM 2021-12-15 11:40:00 Ruthy Matthews [facility] SWALLOW W CINE/VIDEO (MBS) GLUCOSE POC 2021-12-15 10:53:00 Elida Peter LIVER PROFILE 2021-12-15 04:50:00 [facility] BASIC METABOLIC PANEL 2021-12-15 04:50:00 Mutucumarwillie, [facility] Malissa P CBC/DIFF 2021-12-15 04:50:00 [facility] CBC 2021-12-15 04:50:00 [facility] DIFFERENTIAL, MANUAL-WAM 2021-12-15 04:50:00 Mutucumarana, [facility] Malissa P XRAY CHEST 1 VIEW 2021-12-14 14:06:00 Ruthy Matthews ealth 12 LEAD EKG 2021-12-14 14:05:19 Ruthy Matthews akin lt GLUCOSE POC 2021-12-14 14:00:00 Elida Peter PT/INR/PTT 2021-12-14 13:44:00 Tera Quijano h [place] PRO 2021-12-14 13:44:00 Tera Quijano alth COAG STUDIES INTERP 2021-12-14 13:44:00 Tera Quijano [facility] REPORT (BKR) CONSULT CLINICAL CASE 2021-12-14 12:14:27 Mutucumarana, [facility] MANAGEMENT (RN/SW) Malissa P CBC/DIFF 2021-12-14 09:43:00 Ruthy Matthews a lt CBC 2021-12-14 09:43:00 ByronRuthy [facility] lt DIFFERENTIAL, MANUAL-[facility] 2021-12-14 09:43:00 ByronRuthy [facility] LITHIUM 2021-12-14 08:35:00 [facility] 2021-12-14 04:28:00 Mutucumarana, [facility] [place] P BASIC METABOLIC PANEL 2021-12-14 04:28:00 Mutucumarana, [facility] Malissa P CBC/DIFF 2021-12-14 04:28:00 Mutucumarana, [facility] Malissa P CBC 2021-12-14 04:28:00 [facility] RBC MORPHOLOGY-[facility] 2021-12-14 04:28:00 Mutucumarana, [facility] alth Malissa P LITHIUM 2021-12-13 21:15:00 Mutucumarana, [place] [facility] Malissa P COMMODE AT BEDSIDE 2021-12-13 08:17:33 Elida Peter [facility] ealth LIVER PROFILE 2021-12-13 04:53:00 Mutucumarana, [facility] [place] P BASIC METABOLIC PANEL 2021-12-13 04:53:00 Mutucumarana, [facility] Malissa P CBC/DIFF 2021-12-13 04:53:00 Mutucumarana, [facility] [place] P CBC 2021-12-13 04:53:00 [facility] LIVER PROFILE 2021-12-12 04:26:00 Mutucumarana, [place] [facility] Mal[place] P SEQUENTIAL COMPRESSION 2021-12-12 00:42:25 Elida Peter [facility] Health PUMP CBC/DIFF 2021-12-11 04:51:00 [facility] BASIC METABOLIC PANEL 2021-12-11 04:51:00 Mutucumarana, [facility] Malissa P LIVER PROFILE 2021-12-11 04:51:00 Mutucumarana, [facility] [place] P CBC 2021-12-11 04:51:00 [facility] RETIC COUNT 2021-12-11 04:51:00 QuijanoTera wilson [facility] U/S ABDOMEN LIMITED 2021-12-10 08:50:00 Ruthy Matthews [facility] CBC/DIFF 2021-12-10 05:32:00 [facility] BASIC METABOLIC PANEL 2021-12-10 05:32:00 Mutucumarana, [facility] Malissa P LIVER PROFILE 2021-12-10 05:32:00 [facility], [facility] CBC 2021-12-10 05:32:00 Mutucumarana, [facility] h Malissa P CT FEMUR W CONTRAST 2021-12-09 16:25:48 Ruthy Matthews [facility] CBC/DIFF 2021-12-09 04:35:00 [facility] BASIC METABOLIC PANEL 2021-12-09 04:35:00 Mutucumarana, [facility] Malissa P LIVER PROFILE 2021-12-09 04:35:00 [facility] CBC 2021-12-09 04:35:00 [facility], [facility] P VIT D, 25-HYDROXY 2021-12-09 04:35:00 Ruthy Matthews [facility] ealth COMMODE AT BEDSIDE 2021-12-08 21:45:09 Elida Peter [facility] ealth CBC/DIFF 2021-12-08 05:03:00 [facility] BASIC METABOLIC PANEL 2021-12-08 05:03:00 Mutucumarana, [facility] Malissa P LIVER PROFILE 2021-12-08 05:03:00 [facility] CBC 2021-12-08 05:03:[address] [facility] INFUSION PUMP 2021-12-07 18:01:36 Elida Peter [facility] CBC/DIFF 2021-12-07 05:21:[address] [facility] BASIC METABOLIC PANEL 2021-12-07 05:21:00 Compa Matthewsyoseftaniya [facility] LIVER PROFILE 2021-12-07 05:21:00 Elida Peter [facility] LACTATE DEHYDROGENASE 2021-12-07 05:21:00 Elida Peter [facility] HAPTOGLOBIN 2021-12-07 05:21:00 Elida Peter [facility] AMMONIA 2021-12-07 05:21:00 Elida Peter [facility] CBC 2021-12-07 05:21:[address] [facility] PT/INR/PTT 2021-12-06 05:02:[address] [facility] CT ABDOMEN AND PELVIS 2021-12-05 16:10:17 Compa Matthewsyoseftainya Marquez [facility] CONTRAST CT CHEST W CONTRAST 2021-12-05 16:10:17 Michael Giraldo ealt PATHOLOGIST REVIEW 2021-12-05 04:08:[address] [facility] SAVE SMEAR/ NOT FOR PATH 2021-12-05 04:08:00 Tera Quijano [facility] REVIEW LEAD, WHOLE BLOOD (ADULT) 2021-12-04 11:14:00 [facility] ANTIGLOBULIN TEST 2021-12-04 10:15:00 Seun [facility] BETZY/ DIRECT MARINA Malissa Martin HIV AG/AB COMBO ROUTINE 2021-12-04 10:15:00 Alma Kohli [facility] SCREENING Malissa Martin HEPATITIS PANEL 2021-12-04 10:15:00 Talha Kohli Malissa P HEMOGLOBIN A1C 2021-12-04 04:06:00 Talha Kohli Malsisa P LACTATE DEHYDROGENASE 2021-12-04 04:06:00 Seun [facility] ([facility] Malissa P CBC/DIFF 2021-12-04 04:06:[address] [facility] BASIC METABOLIC PANEL 2021-12-04 04:06:00 Ruthy Matthews [facility] CBC 2021-12-04 04:06:[address] [facility] RETIC COUNT 2021-12-04 04:06:00 Talha Kohliine P SAVE SMEAR/ NOT FOR PATH 2021-12-04 04:06:00 Mutucamelia, [facility] REVIEW Malissa P FREE T4 2021-12-04 04:06:[address] [facility] URINALYSIS W/REFLEX TO 2021-12-03 16:54:00 Seun [facility] URINE CULTURE Malissa P URINALYSIS 2021-12-03 16:54:00 Talha Kohliine P URINE CULTURE COLLECTION 2021-12-03 16:54:00 Mutcory, [facility] KIT Malissa P NUTRITION CONSULT 2021-12-03 07:40:[address] [facility] ASSESSMENT Malissa P IRON PROFILE 2021-12-03 04:44:00 Talha Kohli Malissa P CBC/DIFF 2021-12-03 04:44:00 Talha Kohlimaine P CBC 2021-12-03 04:44:00 Talha Kohlimaine P THYROID STIMULATING 2021-12-03 04:44:00 Talha Kohli ealth HORMONE (TSH) Malissa P VITAMIN B12 2021-12-03 04:44:00 Talha Kohli P FOLIC ACID 2021-12-03 04:44:00 Talha Kohli P FREE T4 2021-12-03 04:44:00 Talha Kohliine P HAPTOGLOBIN 2021-12-03 04:44:00 Talha Kohliine P SAVE SMEAR/ NOT FOR PATH 2021-12-03 04:44:00 [facility] REVIEW Malissa P SEQUENTIAL COMPRESSION 2021-12-03 03:19:55 [facility] [place], [facility] PUMP Malissa P SARS-COV-2, FLU A/B, RSV 2021-12-03 01:06[facility], 2021-12-03 01:06:00 Salvador [facility] YOSHI CREATININE POC 2021-12-02 20:31:00 Talha Gutierrez Kym BMP POC 2021-12-02 20:31:00 Talha Gutierrez K[facility] CBC/DIFF 2021-12-02 20:17:00 NaveenMarino Butler [facility] CBC 2021-12-02 20:17:00 [facility] LITHIUM 2021-12-02 20:17:00 Moe Sim [facility] COMPREHENSIVE METABOLIC 2021-12-02 20:17:00 Seun [facility] PANEL Malissa P FERRITIN 2021-12-02 20:17:[address] HEAD W/O CONTRAST 2021-12-02 18:26:07 [facility] CT ABDOMEN/PELVIS WITH IV 2021-07-30 20:25:[address] [facility] CBC W/PLT COUNT & AUTO 2021-07-30 19:37:[address] AdrianBriiJanet [facility] BASIC METABOLIC PANEL (7) 2021-07-30 19:37:00 AdrianBrii Mayaadin sultana [facility] PROTHROMBIN TIME/INR 2021-07-30 19:37:00 AdrianBrii [facility] CBC W/PLT COUNT & AUTO 2021-07-30 19:37:00 AdrianBriiJanet [facility] Plan of Care Planned Activity Planned Date Details Comments Source Future Scheduled Test 2025-07-17 DTAP/TDAP/TD [facility] [...] yrs)] Future Scheduled Test 2022-04-03 [facility] Seasonal (>/= 19 [...] Test 2022-03-[address] VACC[address] [facility] 00:00:00 (#1) [code = Medical Center INFLUENZA VACCINE (#1)] Future Scheduled Test 2022-03-03 INFLUENZA VACCINE [facility] 12:27:23 [code = INFLUENZA VACCINE] Future Scheduled Test 2022-03-03 HEPATITIS B VACCINES [facility] 12:27:23 (1 of 3 - 3-dose series) [code = HEPATITIS B VACCINES (1 of 3 - 3-dose series)] Future Scheduled Test 2022-03-03 COVID-19 VACCINE [facility] 12:27:23 (#1) [code = COVID-19 VACCINE (#1)] Future Scheduled Test 2022-03-03 INFLUENZA VACCINE [facility] 12:27:23 [code = INFLUENZA VACCINE] Future Scheduled Test 2022-03-03 HEPATITIS B VACCINES [facility] 12:27:23 (1 of 3 - 3-dose series) [code = HEPATITIS B VACCINES (1 of 3 - 3-dose series)] Future Scheduled Test 2022-03-03 HEPATITIS B VACCINES [facility] 12:27:23 (1 of 3 - 3-dose series) [code = HEPATITIS B VACCINES (1 of 3 - 3-dose series)] Future Scheduled Test 2022-03-03 COVID-19 VACCINE [facility] 12:27:23 (#1) [code = COVID-19 VACCINE (#1)] Future Scheduled Test 2022-03-03 INFLUENZA VACCINE [facility] 12:27:23 [code = INFLUENZA VACCINE] Future Scheduled Test 2022-03-03 COVID-19 VACCINE [facility] 12:27:23 (#1) [code = COVID-19 VACCINE (#1)] Future Scheduled Test 2022-03-03 INFLUENZA VACCINE [facility] 12:27:23 [code = INFLUENZA VACCINE] Future Scheduled Test 2022-03-03 HEPATITIS B VACCINES [facility] 12:27:23 (1 of 3 - 3-dose series) [code = HEPATITIS B VACCINES (1 of 3 - 3-dose series)] Future Scheduled Test 2022-03-03 COVID-19 VACCINE [facility] 12:27:23 (#1) [code = COVID-19 VACCINE (#1)] Future Scheduled Test 2022-03-03 HEPATITIS B VACCINES [facility] 12:27:23 (1 of 3 - 3-dose series) [code = HEPATITIS B VACCINES (1 of 3 - 3-dose series)] Future Scheduled Test 2022-03-03 INFLUENZA VACCINE [facility] 12:27:23 [code = INFLUENZA VACCINE] Future Scheduled Test 2022-03-03 COVID-19 VACCINE [facility] 12:27:23 (#1) [code = COVID-19 VACCINE (#1)] Future Scheduled Test 2022-03-03 INFLUENZA VACCINE [facility] 12:27:23 [code = INFLUENZA VACCINE] Future Scheduled Test 2022-03-03 HEPATITIS B VACCINES [facility] 12:27:23 (1 of 3 - 3-dose series) [code = HEPATITIS B VACCINES (1 of 3 - 3-dose series)] Future Scheduled Test 2022-03-03 COVID-19 VACCINE [facility] 12:27:23 (#1) [code = COVID-19 VACCINE (#1)] Future Scheduled Test 2022-03-03 INFLUENZA VACCINE [facility] 12:27:23 [code = INFLUENZA VACCINE] Future Scheduled Test 2022-03-03 HEPATITIS B VACCINES [facility] 12:27:23 (1 of 3 - 3-dose series) [code = HEPATITIS B VACCINES (1 of 3 - 3-dose series)] Future Scheduled Test 2022-03-03 COVID-19 VACCINE [facility] 12:27:23 (#1) [code = COVID-19 VACCINE (#1)] Future Scheduled Test 2022-02-19 COVID-19 VACCINE [facility] 10:27:57 (#1) [code = COVID-19 VACCINE (#1)] Future Scheduled Test 2022-02-19 INFLUENZA VACCINE [facility] 10:27:57 [code = INFLUENZA VACCINE] Future Scheduled Test 2022-02-19 HEPATITIS B VACCINES [facility] 10:27:57 (1 of 3 - 3-dose series) [code = HEPATITIS B VACCINES (1 of 3 - 3-dose series)] Future Scheduled Test 2022-02-19 COVID-19 VACCINE [facility] 10:27:57 (#1) [code = COVID-19 VACCINE (#1)] Future Scheduled Test 2022-02-19 INFLUENZA VACCINE [facility] 10:27:57 [code = INFLUENZA VACCINE] Future Scheduled Test 2022-02-19 HEPATITIS B VACCINES [facility] 10:27:57 (1 of 3 - 3-dose series) [code = HEPATITIS B VACCINES (1 of 3 - 3-dose series)] Future Scheduled Test 2022-02-19 COVID-19 VACCINE [facility] 10:27:57 (#1) [code = COVID-19 VACCINE (#1)] Future Scheduled Test 2022-02-19 INFLUENZA VACCINE [facility] 10:27:57 [code = INFLUENZA VACCINE] Future Scheduled Test 2022-02-19 HEPATITIS B VACCINES [facility] 10:27:57 (1 of 3 - 3-dose series) [...] [facility] 00:00:00 (procedure) [code = [facility] [id number]] Future Scheduled Test 2019-11-[address] [facility] 00:00:00 (procedure) [code = [facility] [id number]] Future Scheduled Test 2019-11-[address] [facility] 00:00:00 (procedure) [code = [facility] [id number]] Future Scheduled Test 2019-11-[address] [facility] 00:00:00 (procedure) [code = [facility] [id number]] Future Scheduled Test 2019-11-[address] [facility] 00:00:00 (procedure) [code = [facility] [id number]] Future Scheduled Test 2019-11-[address] [facility] 00:00:00 (procedure) [code = [facility] [id number]] Future Scheduled Test 2019-11-[address] [facility] 00:00:00 (procedure) [code = [facility] [id number]] Future Scheduled Test 2019-11-[address] [facility] 00:00:00 (procedure) [code = [facility] 10247283] Future Scheduled Test 2019-11-[address] [facility] 00:00:00 (procedure) [code = [facility] 23939249] Future Scheduled Test 2019-11-[address] [facility] 00:00:00 (procedure) [code = [facility] [id number]] Future Scheduled Test 2019-11-[address] [facility] 00:00:00 (procedure) [code = [facility] [id number]] Future Scheduled Test 2019-11-[address] [facility] 00:00:00 (procedure) [code = [facility] 85825929] Future Scheduled Test 2019-11-[address] [facility] 00:00:00 (procedure) [code = [facility] 25617690] Future Scheduled Test 2019-11-[address] [facility] 00:00:00 (procedure) [code = [facility] 35978492] Future Scheduled Test 2019-11-[address] [facility] 00:00:00 (procedure) [code = [facility] [id number]] Future Scheduled Test 2019-11-[address] [facility] 00:00:00 (procedure) [code = [facility] 53987144] Future Scheduled Test 2019-11-[address] [facility] 00:00:00 (procedure) [code = [facility] 20624989] Future Scheduled Test 2019-11-[address] [facility] 00:00:00 (procedure) [code = [facility] [id number]] Future Scheduled Test 2011-01-02 MEDICARE ANNUAL [facility]00 (#1) [code = [facility] COVID-19 VACCINE (#1)] Future Scheduled Test 1985-05-17 COVID-[address] [facility] 00:00:00 (#1) [code = [facility] COVID-19 VACCINE (#1)] Future Scheduled Test 1985-05-17 COVID-[address] [facility] 00:00:00 (#1) [code = Medical Center COVID-19 VACCINE (#1)] Future Scheduled Test 1985-05-17 COVID-[address] [facility] 00:00:00 (#1) [code = [facility] COVID-19 VACCINE (#1)] Future Scheduled Test [...] [code = Fluoride Varnish] Future Appointment 2022-04-06 Mariela Linares [address] [place] [address] 00:00:00 [place] [address] Encounters Start End Encounter Admission Attending Care Care Encounter Source Date/Time Date/Time Type Type Clinicians Facility Department ID 2022-02-08 Outpatient [facility] [id number] [place] 12:40:13 [id number] [facility] 2022-01-25 Outpatient [facility] [id number] [place] 13:48:30 [id number] [facility] 2022-01-15 Outpatient DIAMOND, [facility]FB MHFB [id number] FB 09:20:35 WANDA 2022-05-03 2022-05-03 Outpatient SG, [facility] [id number] [place] 00:00:00 00:00:00 KAMILLE Abreu 2022-04-05 2022-04-05 Outpatient SG, [facility] [id number] [place] 00:00:00 00:00:00 KAMILLE Healt 2022-04-02 2022-04-02 Outpatient [facility]Tod PRIV PRIV [id number] [facility] 00:00:00 00:00:00 Cecilia [id number] Medica l 2022-03-25 2022-03-25 Outpatient [facility]Tod PRIV PRIV [id number] [facility] 00:00:00 00:00:00 Cecilia [id number] Medica l 2022-03-23 2022-03-23 Outpatient [facility]Tod PRIV PRIV [id number] [facility] 00:00:00 00:00:00 d_J [id number] Medica l 2022-03-23 2022-03-23 Mariela [facility] [id number] [facility] 00:00:00 00:00:00 JEANIE Linares: Health - Med ical [address] [address] , Ph. 2022-03-22 2022-03-22 Damir Umana [facility] 202 [facility] 00:00:00 00:00:00 Lizbeth Health - Med ical MD: [address] [address] , Ph. 2022-03-16 2022-03-16 Mariela [facility] [id number] [facility] 00:00:00 00:00:00 JEANIE Linares: Health - Med ical [address] [address] , Ph. 2022-03-12 2022-03-12 Outpatient [facility]Tod PRIV PRIV [id number] [facility] 00:00:00 00:00:00 d_J [id number] Medica l 2022-03-05 2022-03-05 Outpatient ANJANA Linares [facility] [id number] 00:00:00 00:00:00 Mariela [id number] 2022-03-05 2022-03-05 [facility] [id number] [facility] 00:00:00 00:00:00 JEANIE Linares: Health - Med ical [address] [address] , Ph. 2022-03-02 2022-03-02 Outpatient ANJANA Linares [facility] [id number] 00:00:00 00:00:00 Mariela [id number] 2022-03-02 2022-03-02 Mariela [facility] [id number] [facility] 00:00:00 00:00:00 JEANIE Linares: Health - Med ical [address] [address] , Ph. 2022-02-28 2022-02-28 Outpatient [facility]_Tod PRIV PRIV [id number] [facility] 00:00:00 00:00:00 d_J [id number] Medica l 2022-02-25 2022-02-25 Outpatient Lizbeth ANJANA PRIV [id number] 00:00:00 00:00:00 Damir Umana [id number] 2022-02-25 2022-02-25 Damir YEUNG [facility] 202 [id number] [facility] 00:00:00 00:00:00 Lizbeth [facility] - Med ical MD: [address] [address] , Ph. 2022-02-23 2022-02-23 Outpatient Vijay ANJANA YEUNG [id number] 00:00:00 00:00:00 Mariela [id number] 2022-02-23 2022-02-23 Mariela [facility] [id number] [facility] 00:00:00 00:00:00 JEANIE Linares: Health - Med ical [address] [address] , Ph. 2022-02-19 2022-02-19 Outpatient [facility]_Tod PRIV PRIV [id number] [facility] 00:00:00 00:00:00 d_J [id number] Medica l 2022-02-19 2022-02-19 Mariela [facility] [id number] [facility] 00:00:00 00:00:00 JEANIE Linares: Health - Med ica [address] [place] [address] , Ph. 2022-02-19 2022-02-19 Outpatient ANJANA Linares PRIV [id number] 00:00:00 00:00:00 Mariela [id number] 2022-02-18 2022-02-18 Outpatient [facility]Tod PRIV PRIV [id number] [facility] 00:00:00 00:00:00 d_J [id number] Medica l 2022-01-26 2022-02-16 Outpatient José [facility] [id number] 14:02:00 21:42:00 Ritubaldo 07 2022-01-26 2022-02-16 Inpatient U JOSÉ [facility] [id number] [facility] 14:02:00 21:42:00 RITUBALDO l [place] Neli [facility] 2022-02-02 2022-02-02 Outpatient [facility] [id number] [place] 00:00:00 00:00:00 [facility] 2022-01-18 2022-01-26 Inpatient E DARIO L[facility]E MED [id number] MHBL 10:31:00 12:59:00 ARVIND 2022-01-16 2022-01-26 Outpatient Sasyl, MHPL MHPL [id number] 07:55:41 12:59:00 Arvind 2022-01-16 2022-01-26 Outpatient Savishnuja, MHPL MHPL [id number] 07:55:41 12:59:00 Arvind 2022-01-16 2022-01-16 Outpatient Silvia, MHPL MHPL [id number] 07:55:41 07:55:41 Chris 07 [place] 2022-01-12 2022-01-12 Emergency ER Ai [facility] [id number] [facility] 16:19:00 17:42:00 [facility] 2022-01-12 2022-01-12 Emergency ER AI [facility] Emergency [id number] [facility] 16:19:00 17:42:00 CWANZA 2022-01-12 2022-01-12 Travel [facility] [id number] [facility] 00:00:00 00:00:00 [facility] 2022-01-08 2022-01-08 Emergency Zain Degroot HCAPM BUSHRA LA00 [id number] [facility] 12:40:00 18:44:00 95 [facility] 2022-01-08 2022-01-08 Emergency Zain Degroot HCAPM HCAPM LA61 [facility] 12:40:00 18:44:00 51931 [facility] 2022-01-07 2022-01-07 Orders Betty, [facility] [id number] [place] 00:00:00 00:00:00 Only [facility] 2022-01-07 2022-01-07 Orders Betty, [facility] [id number] [place] 00:00:00 00:00:00 Only [facility] 2021-12-23 2021-12-23 Outpatient [place], [facility] [id number] [place] 12:11:26 12:16:15 [facility] 2021-12-23 2021-12-23 Office Sourihoro, [facility] [id number] [place] 11:00:00 12:16:02 Visit [facility] 2021-12-23 2021-12-23 [facility] [id number] [place] 11:00:00 12:16:02 Visit Anine [facility] 2021-12-23 2021-12-23 Outpatient [place], [facility] [id number] [place] 00:00:00 00:00:00 [facility] 2021-12-23 2021-12-23 Orders Souyosefhoned, [facility] [id number] [address] [place] [address] 00:00:00 00:00:00 Only Annie [facility] 2021-12-23 2021-12-23 Orders Thiago, [facility] [id number] [place] 00:00:00 00:00:00 Only Annie H [facility] 2021-12-02 2021-12-16 Emergency Kym Gutierrez [facility] [id number] [place] 16:49:00 11:54:00 Marla Bai [facility] Elida Peter Charmaine P 2021-12-02 2021-12-16 Emergency Kym Gutierrez [facility] [id number] [place] 16:49:00 11:54:00 Marla Bai [facility] Elida Peter Charmaine P 2021-12-15 2021-12-15 Outpatient [facility] [id number] [place] 11:10:10 11:58:48 [facility] 2021-12-14 2021-12-14 Outpatient [facility] [id number] [place] 15:58:03 15:58:08 [facility] 2021-12-14 2021-12-14 Outpatient [facility] [id number] [place] 13:56:45 14:11:44 [facility] 2021-12-10 2021-12-10 Outpatient [facility] [id number] [place] 08:04:54 09:52:59 [facility] 2021-12-09 2021-12-09 Outpatient [facility] [id number] [place] 14:31:10 16:27:35 [facility] 2021-12-05 2021-12-05 Outpatient [facility] [id number] [place] 15:47:31 16:10:42 [facility] 2021-12-05 2021-12-05 Outpatient [facility] [id number] [place] 00:00:00 00:00:00 [facility] 2021-12-02 2021-12-02 Emergency [facility] [id number] [place] 17:25:24 18:26:13 [facility] KYM 2021-12-02 2021-12-02 Outpatient 1 [facility] [id number] [place] 16:49:00 16:49:00 [facility] 2021-12-01 2021-12-01 Outpatient HARVINDER Shukla [facility] [id number] 06:20:00 12:40:00 Wanda 05 [place] 2021-12-01 2021-12-01 Outpatient JERRY SHUKLA FB 7505 [facility] 06:20:00 12:40:00 WANDA 2021-12-01 2021-12-01 Outpatient Roselynl, MHSL [facility] [id number] 575 08:00:00 08:00:00 Wanda 05 2021-11-25 2021-11-25 Emergency Justin, [facility] [id number] 16:20:00 16:55:00 [facility] 2021-11-25 2021-11-25 Emergency ER JUSTIN, [facility] Emergency [id number] [facility] 16:20:00 16:55:00 [facility] 2021-07-31 2021-07-31 Travel [facility] [id number] [facility] 00:00:00 00:00:00 [facility] 2021-07-30 2021-07-30 Emergency ER Brii Campbell [facility] [id number] 19:14:00 21:58:00 [facility] 2021-07-30 2021-07-30 Emergency ER STONEBRII [facility] Emergency 20 [id number] [facility] 19:14:00 21:58:00 2018-07-01 2018-07-01 Outpatient Folorunsho, [facility] 249 [id number] 18:27:00 22:12:00 Jazmin 01 Lucero 2018-06-27 2018-06-29 Outpatient Hammonds, [facility] [id number] 20:48:00 19:05:00 Ugochi 04 Kianna 2017-12-30 2017-12-30 Outpatient Iheme, Rony [facility] [id number] 10:30:00 12:31:00 U 03 2016-10-04 2016-10-08 Outpatient Ajao, [facility] [id number] 575 13:28:00 15:10:00 Annette 02 Yasmin 2016-04-17 2016-04-17 Outpatient Alinr, [facility] [id number] 10:11:00 13:54:00 Ambica 2015-07-17 2015-07-18 Outpatient Vijay Combs [facility] [id number] 14:28:00 12:05:00 King 2015-07-17 2015-07-17 Outpatient Presybeterian, [facility] [id number] 11:42:00 14:15:00 Nadim B 00 Results Test Description Test Time Test Comments Results Result Comments Source B-TYPE NATRIURETIC FACTOR (BNP) 2022-01-12 17:12:09 Test Item Value Reference Range Interpretation Comme nts B-TYPE NATRIURETIC PEPTIDE (BEAKER) (test code = 700) 69 pg/mL 0-100 Big Data Admin ID - [id number] METABOLIC [id number] 17:06:08 Test Item Value Reference Range Interpretation [...] S NOT APPLICABLE FOR DIALYSIS PATIEN TS. Big Data Admin ID - [id number] ID - HGNNK498Wepetvnl ID - FSOEN860Xxdolnvx ID - KSTKV798Vhwlcmto ID - HFYLL592Ilaghvkp ID - BLVXU236Herzrtvq ID - YZPXJ916Fbiaofrh ID - SHNTO281Ooliepde ID - ZRMTN467Aiwlchdd ID - SBOQU900Yfqarerz ID - DFJTM998Upvvznqt ID - ATHYA376Bypyrbfy ID - TUUQB598Ydzwdamm ID - CQBUB468Zxrmktfs ID - OTUDZ217Yvuulnhc ID - ZOYRY255Scanziyk ID - ONODD363Rhsjsjqh ID - HRASN706Yhauehme ID - QGPOE965MHR W/PLT COUNT & AUTO [id number] 16:49:25 Test Item Value Reference Range Interpretation [...] code = 2801) - CTA CHEST FOR [id number] 18:27:00 [facility] : 1985 Sex: M Name: VERÓNICA NUNN [facility] : 1985 Age/S: 36 / M [id number] [place] Unit #: [id number] Loc: [place] [address] Phys: Zain David DO Acct: [id number] Dis Date: Status: REG ER PHONE #: [phone] Exam Date: 01/08/2022 6875 FAX #: Reason: evaluate for PE EXAMS: CPT: [id number] [place] [address] EXAM: - CTA CHEST FOR PE LOCATION: [...] 1 Signed Report (CONTINUED) Name: VERÓNICA NUNN [facility] : 1985 Age/S: 36 / M [address] [place] Unit #: [id number] Loc: [place] [address] Phys: Zain David DO Acct: [id number] Dis Date: Status: REG ER PHONE #: [phone] Exam Date:01/08/2022 180 FAX #: Reason: evaluate for PE EXAMS: CPT: [id number] [place] [address] (Continued) at 1827 Reported and signed by: Ba Anaya M.D. CC: Zain David DO Technologist:Abram Prasad, RT(R) CTDI: DLP: Trnscb Date/Time: 01/08/2022 (1826) [email or web address] Orig Print D/T: S: 01/08/2022 (183) PAGE 2 Signed Report- DUP VEIN [id number] 16:52:00 [facility] : 1985 Sex: M Name: VERÓNICA NUNN [place] : 1985 Age/S: 36 / M [address] [place] Unit #: [id number] Loc: [place] [address] Phys: Zain David DO Acct: [id number] Dis Date: Status: REG ER PHONE #: [phone] Exam Date: 01/08/20221647 FAX #: Reason: swelling EXAMS: CPT: [id number] DUP VEIN COMFORT 54501 EXAM: - DUP VEIN COMFORT LOCATION: H65 [...] CC: Zain David DO Technologist: Kianna Cardenas Trnokb Date/Time: 01/08/2022 (165) [email or web address] PAGE 1 Signed Report Name: VERÓNICA NUNN [place] : 1985 Age/S: 36 / M [address] [place] Unit #: [id number] Loc: [place] [address] Phys: Zain David DO Acct: [id number] Dis Date: Status: REG ER PHONE #: [phone] Exam Date: 01/08/20221647 FAX #: Reason: swelling EXAMS: CPT: [id number] DUP VEIN COMFORT 56029 (Continued) Orig [facility] nt D/T: S: 01/08/2022 (1655) Probe: PAGE 2 Signed ReportTROP-I HIGH SENSITIVITY [...] varyby method. Completed by Nursing: NOBASIC METABOLIC [id number] 15:07:00 Test Item Value Reference Range Interpretation [...] N Completed by Nursing: NONT PRO-BRAIN NATRIURETIC [id number] 15:07:00 Test Item Value Reference Range Interpretation Comments NT PRO-BRAIN NATRIURETIC PEPTI 163 PG/ML 0-100 H (test code = PROBNP) Completed by Nursing: KHU-FTIOQ2023-40-08 15:04:00 Test Item Value Reference Range Interpretation [...] STS AND APPROPRIATECLIN ICAL EUALUATIONS. HEPATIC FUNCTION [id number] 14:58:00 Test Item Value Reference Range Interpretation [...] 50-136 N code = ALKP) CBC W/O [id number] 14:41:00 Test Item Value Reference Range Interpretation [...] 7.0-9.6 H MPV) - XR CHEST 1 [id number] 14:24:00 [facility] : 1985 Sex: M Name: VERÓNICA NUNN [facility] : 1985 Age/S: 36 / M [address] [facility] [place] Unit #: [id number] Loc: [place] [address] Phys: MaurijoseZain Acct: [id number] Dis Date: Status: REG ER PHONE #: [phone] Exam Date: 01/08/2022 1412 FAX #: Reason: chest pain EXAMS: CPT: [id number] XR CHEST 1 V 83771 Fluoro Time: DAP (Gy m2): Air Kerma [...] PAGE 1 Signed Report Name: VERÓNICA NUNN : 1985 Age/S: 36 / M [address] [place] Unit #: [id number] Loc: [place], [place] [address]Hxxq: Zain David DO Acct: [id number] Dis Date: Status: REG ER PHONE #: [phone] Exam Date: 01/08/2022 1418 FAX #: Reason: chest pain EXAMS: CPT: [id number] XR CHEST 1 V 12120 Fluoro Time: DAP (Gy m2): Air Kerma (mGy): (Continued) Technologist: Vladislav Moreno, RT(R)(CT) Trnscb Date/Time: 01/08/2022 (142) [email or web address] Orig Print D/T: S: 01/08/2022 (5771) PAGE 2 Signed ReportCT GLUCOSE POC docked [id number] 10:55:52 Test Item Value Reference Range Interpretation Comments Glucose POC (test code = 87242934) 79 mg/dL 74-106 Lab Interpretation (test code = Normal 40938-7) [facility] [id number] 10:55:52 Test Item Value Reference Range Interpretation Comments Glucose POC (test code = 86998027) 79 mg/dL 74-106 Lab Interpretation (test code = Normal 80843-1) [facility] [id number] 10:55:52 Test Item Value Reference Range Interpretation Comments Glucose POC (test code = 04924984) 79 mg/dL 74-106 Lab Interpretation (test code = Normal 19792-8) [facility] [id number] 10:55:52 Test Item Value Reference Range Interpretation Comments Glucose POC (test code = 05894645) 79 mg/dL 74-106 Lab Interpretation (test code = Normal 25994-8) [facility] [id number] 10:55:52 Test Item Value Reference Range Interpretation Comments Glucose POC (test code = 98512000) 79 mg/dL 74-106 Lab Interpretation (test code = Normal 38222-3) [facility] [id number] 10:55:52 Test Item Value Reference Range Interpretation Comments Glucose POC (test code = 82785466) 79 mg/dL 74-106 Lab Interpretation (test code = Normal 23503-1) [facility] [id number] 10:55:52 Test Item Value Reference Range Interpretation Comments Glucose POC (test code = 79455793) 79 mg/dL 74-106 Lab Interpretation (test code = Normal 08773-8) [facility]ed [id number] 10:55:52 Test Item Value Reference Range Interpretation Comments Glucose POC (test code = 73403540) 79 mg/dL 74-106 Lab Interpretation (test code = Normal 17084-4) [facility]ed [id number] 10:55:52 Test Item Value Reference Range Interpretation Comments Glucose POC (test code = 94970369) 79 mg/dL 74-106 Lab Interpretation (test code = Normal 95867-1) [place] [address] Lead [id number] 14:05:1911 LEAD EKG FOR [facility] Test Date: 2045-13-20Emz Name: VERÓNICA AMBER Department: 5CMSPatient ID: [id number] Room: Gender: M [employer]: SHIOB: 1985 Requested By: MISAEL HUIZARrder Number: [id number] Reading MD: Rosa Santa MeasurementsIntervals [place] Rate: 90 P: 73PR: 142 QRS: 90QRSD: 104 T: 69QT: 345 QTc: [address] ELEVATION [0.05+ mV ST ELEVATION]Electronically Signed On 12-14-2021 14:05:45 CDT by Rosa BanuelosMichael [place] [address] Lead [id number] 14:05:1911 LEAD EKG FOR [facility] Test Date: 6145-71-65Nzr Name: VERÓNICA AMBER Department: 5CMSPatient ID: [id number] Room: Gender: M [employer]: ANNIEDOB: 1985 Requested By: MISAEL VELÁZQUEZ EOrder Number: [id number] Reading MD: Rosa Santa MeasurementsIntervals [place] Rate: 90 P: 73PR: 142 QRS: 90QRSD: 104 T: 69QT: 345 QTc: 393 Interpret[address] Stat[address] ELEVATION [0.05+ mV ST ELEVATION]Electronically Signed On 12-14-2021 14:05:45 CDT by Quer[facility] Corporationcolumbia regional hospitalSyncuritySaint Elizabeth EdgewoodMusicAll12 Lead [id number] 14:05:1912 LEAD EKG FOR [facility] Test Date: 5002-57-82Odm Name: VERÓNICA BANKSKEITH Department: 5CMSPatient ID: [id number] Room: Gender: M [employer]: ANNIEDOB: 1985 Requested By: MISAEL Brito Number: [id number] Reading MD: Rosa Santa MeasurementsIntervals [place] Rate: 90 P: 73PR: 142 QRS: 90QRSD: 104 T: 69QT: 345 QTc: 393 Interpret[address] Stat[address] ELEVATION [0.05+ mV ST ELEVATION]Electronically Signed On 12-14-2021 14:05:45 CDT by Querium CorporationCorewell Health Butterworth HospitalMusicAll12 Lead [id number] 14:05:1912 LEAD EKG FOR [facility] Test Date: 5466-45-81Hes Name: VERÓNICA BANKSKEITH Department: 5CMSPatient ID: [id number] Room: Gender: M [employer]: ANNIEDOB: 1985 Requested By: MISAEL Brito Number: [id number] Reading MD: Rosa Santa MeasurementsIntervals [place] Rate: 90 P: 73PR: 142 QRS: 90QRSD: 104 T: 69QT: 345 QTc: 393 [address] ELEVATION [0.05+ mV ST ELEVATION]Electronically Signed On 12-14-2021 14:05:45 CDT by Querium Corporationcolumbia regional hospitalSyncuritySaint Elizabeth EdgewoodMusicAll12 Lead [id number] 14:05:1912 LEAD EKG FOR [facility] Test Date: 7753-12-57Fao Name: VERÓNICA AMBER Department: 5CMSPatient ID: [id number] Room: Gender: M [employer]: ANNIEDOB: 1985 Requested By: MISAEL VELÁZQUEZ EOrder Number: [id number] Reading MD: Rosa Santa MeasurementsIntervals [place] Rate: 90 P: 73PR: 142 QRS: 90QRSD: 104 T: 69QT: 345 QTc: 393 [address] ELEVATION [0.05+ mV ST ELEVATION]Electronically Signed On 12-14-2021 14:05:45 CDT by drumbiSaint Elizabeth EdgewoodMusicAll12 Lead [id number] 14:05:1912 LEAD EKG FOR [facility] Test Date: 9650-77-02Hym Name: VERÓNICA CLARK Department: 5CMSPatient ID: [id number] Room: Gender: [employer]: ANNIEDOB: 1985 Requested By: MISAEL VELÁZQUEZ EOrder Number: [id number] Reading MD: Rosa Santa MeasurementsIntervals [place] Rate: 90 P: 73PR: 142 QRS: 90QRSD: 104 T: 69QT: 345 QTc: 393 [address] ELEVATION [0.05+ mV ST ELEVATION]Electronically Signed On 12-14-2021 14:05:45 CDT by drumbiCerebrex12 Lead [id number] 14:05:1912 LEAD EKG FOR [facility] Test Date: 7176-69-96Wst Name: VERÓNICA CLARK Department: 5CMSPatient ID: [id number] Room: Gender: M [employer]: ANNIEDOB: 1985 Requested By: MISAEL VELÁZQUEZ EOrder Number: [id number] Reading MD: Rosa Santa MeasurementsIntervals [place] Rate: 90 P: 73PR: 142 QRS: 90QRSD: 104 T: 69QT: 345 QTc: [address] ELEVATION [0.05+ mV ST ELEVATION]Electronically Signed On 12-14-2021 14:05:45 CDT by drumbiCerebrex12 Lead [id number] 14:05:1912 LEAD EKG FOR [facility] Test Date: 8392-85-72Wer Name: VERÓNICA CLARK Department: 5CMSPatient ID: [id number] Room: Gender: M [employer]: SHIOB: 1985 Requested By: MISAEL VELÁZQUEZ EOrder Number: [id number] Reading MD: Rosa Santa MeasurementsIntervals [place] Rate: 90 P: 73PR: 142 QRS: 90QRSD: 104 T: 69QT: 345 QTc: [address] ELEVATION [0.05+ mV ST ELEVATION]Electronically Signed On 12-14-2021 14:05:45 CDT by Sol Voltaicseast mountain hospitalMusicAll12 Lead [id number] 14:05:1911 LEAD EKG FOR [facility] Test Date: 2909-82-63Owg Name: VERÓNICA CLARK Department: 5CMSPatient ID: [id number] Room: Gender: M [employer]: SHIOB: 1985 Requested By: MISAEL VELÁZQUEZ EOrder Number: [id number] Reading MD: Rosa Santa MeasurementsIntervals [place] Rate: 90 P: 73PR: 142 QRS: 90QRSD: 104 T: 69QT: 345 QTc: [address] ELEVATION [0.05+ mV ST ELEVATION]Electronically Signed On 12-14-2021 14:05:45 CDT by EvriHIV 1+2 Ab+HIV1 p24 Ag SerPl Ql [id number] 11:54:50 Test Item Value Reference Range Interpretation Comments HIV 1+2 Ab+HIV1 p24 Ag SerPl Ql IA NEGATIVE Negative (test code = 01605-4) Coronavirus, CoVID-19, [id number] 02:25:42 Test Item Value Reference Interpretation Comments Range COVID-19 Not Detected Not Detected INTERPRETATION: (SARS-COV-2) (test No detect able code = 74912-9) levels of SARS-CoV-2 Coronavirus (COVID-19) were present [...] performance characteristics were verified by the [facility] molecular diagnostics laboratory and is authorized for clinical diagnostic use. This laboratory is certified under the Clinical Laboratory Improvement Amendments (CLIA) as qualified to perform high complexity clinical laboratory testing. Lab Interpretation Normal (test code = 17547-4) [facility], CoV[facility]-19, [id number] 02:25:42 Test Item Value Reference Interpretation Comments Range COVID-19 Not Detected Not Detected INTERPRETATION: (SARS-COV-2) (test No detect able code = 56731-1) levels of SARS-CoV-2 Coronavirus (COVID-19) were present [...] performance characteristics were verified by the [facility] molecular diagnostics laboratory and is authorized for clinical diagnostic use. This laboratory is certified under the Clinical Laboratory Improvement Amendments (CLIA) as qualified to perform high complexity clinical laboratory testing. Lab Interpretation Normal (test code = 65718-0) Talha Shepherdronavirus, CoVID-19, [id number] 02:25:42 Test Item Value Reference Interpretation Comments Range COVID-19 Not Detected Not Detected INTERPRETATION: (SARS-COV-2) (test No detect able code = 49783-2) levels of SARS-CoV-2 Coronavirus (COVID-19) were present [...] performance characteristics were verified by the [facility] molecular diagnostics laboratory and is authorized for clinical diagnostic use. This laboratory is certified under the Clinical Laboratory Improvement Amendments (CLIA) as qualified to perform high complexity clinical laboratory testing. Lab Interpretation Normal (test code = 92293-3) Talha Shepherdronavirus, CoVID-19, [id number] 02:25:42 Test Item Value Reference Interpretation Comments Range COVID-19 Not Detected Not Detected INTERPRETATION: (SARS-COV-2) (test No detect able code = 18837-0) levels of SARS-CoV-2 Coronavirus (COVID-19) were present [...] performance characteristics were verified by the [facility] molecular diagnostics laboratory and is authorized for clinical diagnostic use. This laboratory is certified under the Clinical Laboratory Improvement Amendments (CLIA) as qualified to perform high complexity clinical laboratory testing. Lab Interpretation Normal (test code = 93360-0) [facility], CoVID-19, [id number] 02:25:42 Test Item Value Reference Interpretation Comments Range COVID-19 Not Detected Not Detected INTERPRETATION: (SARS-COV-2) (test No detect able code = 78990-7) levels of SARS-CoV-2 Coronavirus (COVID-19) were present [...] performance characteristics were verified by the [facility] molecular diagnostics laboratory and is authorized for clinical diagnostic use. This laboratory is certified under the Clinical Laboratory Improvement Amendments (CLIA) as qualified to perform high complexity clinical laboratory testing. Lab Interpretation Normal (test code = 57076-7) Talha Shepherdronavirus, CoVID-19, [id number] 02:25:42 Test Item Value Reference Interpretation Comments Range COVID-19 Not Detected Not Detected INTERPRETATION: (SARS-COV-2) (test No detect able code = 74354-3) levels of SARS-CoV-2 Coronavirus (COVID-19) were present [...] performance characteristics were verified by the [facility] molecular diagnostics laboratory and is authorized for clinical diagnostic use. This laboratory is certified under the Clinical Laboratory Improvement Amendments (CLIA) as qualified to perform high complexity clinical laboratory testing. Lab Interpretation Normal (test code = 23408-5) Talha Shepherdronavirus, CoVID-19, [id number] 02:25:42 Test Item Value Reference Interpretation Comments Range COVID-19 Not Detected Not Detected INTERPRETATION: (SARS-COV-2) (test No detect able code = 85972-5) levels of SARS-CoV-2 Coronavirus (COVID-19) were present [...] performance characteristics were verified by the [facility] molecular diagnostics laboratory and is authorized for clinical diagnostic use. This laboratory is certified under the Clinical Laboratory Improvement Amendments (CLIA) as qualified to perform high complexity clinical laboratory testing. Lab Interpretation Normal (test code = 58497-6) [facility], CoVID-19, [id number] 02:25:42 Test Item Value Reference Interpretation Comments Range COVID-19 Not Detected Not Detected INTERPRETATION: (SARS-COV-2) (test No detect able code = 27870-3) levels of SARS-CoV-2 Coronavirus (COVID-19) were present [...] performance characteristics were verified by the [facility] molecular diagnostics laboratory and is authorized for clinical diagnostic use. This laboratory is certified under the Clinical Laboratory Improvement Amendments (CLIA) as qualified to perform high complexity clinical laboratory testing. Lab Interpretation Normal (test code = 34300-0) Talha CardenasCoronavirus, CoVID-19, [id number] 02:25:42 Test Item Value Reference Interpretation Comments Range COVID-19 Not Detected Not Detected INTERPRETATION: (SARS-COV-2) (test No detect able code = 89344-8) levels of SARS-CoV-2 Coronavirus (COVID-19) were present [...] performance characteristics were verified by the [facility] molecular diagnostics laboratory and is authorized for clinical diagnostic use. This laboratory is certified under the Clinical Laboratory Improvement Amendments (CLIA) as qualified to perform high complexity clinical laboratory testing. Lab Interpretation Normal (test code = 68852-3) [facility] HealthLugezlZSJX-ExV-9 RNA Resp Ql YOSHI+zekfu2360-11-86 02:25:42 Test Item Value Reference Range Interpretation Comments Hospitalized? (test No code = 83125-9) ICU? (test code = No 55310-4) Symptomatic as defined No by CDC? (test code = 96841-7) Employed in No Healthcare? (test code = 65044-7) Resident in a No congregate care setting (including nursing homes, residential care for people with intellectual and developmental disabilities, psychiatric treatment facilities, group homes, board and care homes, homeless snf, foster care or other): (test code = 09349-6) SARS-CoV-2 RNA Resp Ql NOT DETECTED Not Detected INTER PRETATION: No YOSHI+probe (test code = detec table levels 97914-8) of SARS-CoV-2 Coronavirus (COVID-19) were present in [...] performance characteristics were verified by the [facility] molecular diagnostics laboratory and is authorized for clinical diagnostic use. This laboratory is certified under the Clinical Laboratory Improvement Amendments (CLIA) as qualified to perform high complexity clinical laboratory testing.POCT BMP POC docked device 2021-12-02 20:33:07 Test Item Value Reference Range Interpretation Comments Sodium POC (test code = 134 mmol/L 136-145 L 08382046) Potassium POC (test code 4.2 mmol/L 3.5-5.1 = 07686553) Chloride POC (test code 103 mmol/L 98-107 = 51216015) TCO2 POC (test code = 28 mmol/L 21-32 Physic alden Notified 77604489) Urea Nitrogen POC (test 12 mg/dL 7-18 code = 99041473) Glucose POC (test code = 76 mg/dL 74-106 39273000) Hemoglobin POC (test 7.1 g/dL 12-16 L code = 20887270) Hematocrit POC (test 21.0 % 37.0-47.0 L code = 42968209) Lab Interpretation (test Abnormal code = 22886-0) [facility] POC docked [id number] 20:33:07 Test Item Value Reference Range Interpretation Comments Sodium POC (test code = 134 mmol/L 136-145 L 67819561) Potassium POC (test code 4.2 mmol/L 3.5-5.1 = 76216468) Chloride POC (test code 103 mmol/L 98-107 = 96616532) TCO2 POC (test code = 28 mmol/L 21-32 Physic alden Notified 03942892) Urea Nitrogen POC (test 12 mg/dL 7-18 code = 55605236) Glucose POC (test code = 76 mg/dL 74-106 20677215) Hemoglobin POC (test 7.1 g/dL 12-16 L code = 76221710) Hematocrit POC (test 21.0 % 37.0-47.0 L code = 35539299) Lab Interpretation (test Abnormal code = 09271-1) [facility] POC docked [id number] 20:33:07 Test Item Value Reference Range Interpretation Comments Sodium POC (test code = 134 mmol/L 136-145 L 95328014) Potassium POC (test code 4.2 mmol/L 3.5-5.1 = 58993885) Chloride POC (test code 103 mmol/L 98-107 = 75296809) TCO2 POC (test code = 28 mmol/L 21-32 Physic alden Notified 67185463) Urea Nitrogen POC (test 12 mg/dL 7-18 code = 41972316) Glucose POC (test code = 76 mg/dL 74-106 52245755) Hemoglobin POC (test 7.1 g/dL 12-16 L code = 17321301) Hematocrit POC (test 21.0 % 37.0-47.0 L code = 73965837) Lab Interpretation (test Abnormal code = 00709-8) [facility] POC docked [id number] 20:33:07 Test Item Value Reference Range Interpretation Comments Sodium POC (test code = 134 mmol/L 136-145 L 87062190) Potassium POC (test code 4.2 mmol/L 3.5-5.1 = 83331683) Chloride POC (test code 103 mmol/L 98-107 = 38807884) TCO2 POC (test code = 28 mmol/L 21-32 Physic alden Notified 15313953) Urea Nitrogen POC (test 12 mg/dL 7-18 code = 66843410) Glucose POC (test code = 76 mg/dL 74-106 39285699) Hemoglobin POC (test 7.1 g/dL 12-16 L code = 22951262) Hematocrit POC (test 21.0 % 37.0-47.0 L code = 38042912) Lab Interpretation (test Abnormal code = 02505-4) [facility] BMP POC docked [id number] 20:33:07 Test Item Value Reference Range Interpretation Comments Sodium POC (test code = 134 mmol/L 136-145 L 88958066) Potassium POC (test code 4.2 mmol/L 3.5-5.1 = 15999102) Chloride POC (test code 103 mmol/L 98-107 = 34290522) TCO2 POC (test code = 28 mmol/L 21-32 Physic alden Notified 51318418) Urea Nitrogen POC (test 12 mg/dL 7-18 code = 58422908) Glucose POC (test code = 76 mg/dL 74-106 81829371) Hemoglobin POC (test 7.1 g/dL 12-16 L code = 08963920) Hematocrit POC (test 21.0 % 37.0-47.0 L code = 04061050) Lab Interpretation (test Abnormal code = 08023-7) [facility] BMP POC docked [id number] 20:33:07 Test Item Value Reference Range Interpretation Comments Sodium POC (test code = 134 mmol/L 136-145 L 20752563) Potassium POC (test code 4.2 mmol/L 3.5-5.1 = 47260755) Chloride POC (test code 103 mmol/L 98-107 = 50323765) TCO2 POC (test code = 28 mmol/L 21-32 Physic alden Notified 01249963) Urea Nitrogen POC (test 12 mg/dL 7-18 code = 30229620) Glucose POC (test code = 76 mg/dL 74-106 84233921) Hemoglobin POC (test 7.1 g/dL 12-16 L code = 95114674) Hematocrit POC (test 21.0 % 37.0-47.0 L code = 93818109) Lab Interpretation (test Abnormal code = 53775-3) [facility] POC docked [id number] 20:33:07 Test Item Value Reference Range Interpretation Comments Sodium POC (test code = 134 mmol/L 136-145 L 35706549) Potassium POC (test code 4.2 mmol/L 3.5-5.1 = 98556062) Chloride POC (test code 103 mmol/L 98-107 = 78176192) TCO2 POC (test code = 28 mmol/L 21-32 Physic alden Notified 00752226) Urea Nitrogen POC (test 12 mg/dL 7-18 code = 63291234) Glucose POC (test code = 76 mg/dL 74-106 59638639) Hemoglobin POC (test 7.1 g/dL 12-16 L code = 22622091) Hematocrit POC (test 21.0 % 37.0-47.0 L code = 52696229) Lab Interpretation (test Abnormal code = 26440-7) [facility] POC docked [id number] 20:33:07 Test Item Value Reference Range Interpretation Comments Sodium POC (test code = 134 mmol/L 136-145 L 35050557) Potassium POC (test code 4.2 mmol/L 3.5-5.1 = 39947180) Chloride POC (test code 103 mmol/L 98-107 = 21563295) TCO2 POC (test code = 28 mmol/L 21-32 Physic alden Notified 96238220) Urea Nitrogen POC (test 12 mg/dL 7-18 code = 25324193) Glucose POC (test code = 76 mg/dL 74-106 17555880) Hemoglobin POC (test 7.1 g/dL 12-16 L code = 81299632) Hematocrit POC (test 21.0 % 37.0-47.0 L code = 14238289) Lab Interpretation (test Abnormal code = 33585-0) [facility] POC docked [id number] 20:33:07 Test Item Value Reference Range Interpretation Comments Sodium POC (test code = 134 mmol/L 136-145 L 68912114) Potassium POC (test code 4.2 mmol/L 3.5-5.1 = 28622230) Chloride POC (test code 103 mmol/L 98-107 = 43791738) TCO2 POC (test code = 28 mmol/L 21-32 Physic alden Notified 41114639) Urea Nitrogen POC (test 12 mg/dL 7-18 code = 45958937) Glucose POC (test code = 76 mg/dL 74-106 94836087) Hemoglobin POC (test 7.1 g/dL 12-16 L code = 99044509) Hematocrit POC (test 21.0 % 37.0-47.0 L code = 63099646) Lab Interpretation (test Abnormal code = 44729-4) [facility] CREATININE POC docked [id number] 20:32:51 Test Item Value Reference Range Interpretation Comments Creatinine POC (test 0.5 mg/dL 0.6-1.3 L Physici an Notified code = 63542376) eGFR If non- Am >120 See_Comment [Aut omated message] (test code = 72796019) The s ystem which generated this result transmit gregory reference range : >=90 mL/min/1.7 3 m2. The reference r sravanthi was not used to interpret this result as normal/abnormal . eGFR If Am (test >120 See_Comment [A utomated message] code = 87082283) The system which generated this result transmit gregory reference range : >=90 mL/min/1.7 3 m2. The reference r sravanthi was not used to interpret this result as normal/abnormal . Lab Interpretation (test Abnormal code = 62982-6) [facility] CREATININE POC docked [id number] 20:32:51 Test Item Value Reference Range Interpretation Comments Creatinine POC (test 0.5 mg/dL 0.6-1.3 L Physici an Notified code = 54889372) eGFR If non- Am >120 See_Comment [Aut omated message] (test code = 88322519) The s ystem which generated this result transmit gregory reference range : >=90 mL/min/1.7 3 m2. The reference r sravanthi was not used to interpret this result as normal/abnormal . eGFR If Am (test >120 See_Comment [A utomated message] code = 69768525) The system which generated this result transmit gregory reference range : >=90 mL/min/1.7 3 m2. The reference r sravanthi was not used to interpret this result as normal/abnormal . Lab Interpretation (test Abnormal code = 14448-1) [facility] [id number] 20:32:51 Test Item Value Reference Range Interpretation Comments Creatinine POC (test 0.5 mg/dL 0.6-1.3 L Physici an Notified code = 26509041) eGFR If non- Am >120 See_Comment [Aut omated message] (test code = 91426051) The s ystem which generated this result transmit gregory reference range : >=90 mL/min/1.7 3 m2. The reference r sravanthi was not used to interpret this result as normal/abnormal . eGFR If Am (test >120 See_Comment [A utomated message] code = 48931551) The system which generated this result transmit gregory reference range : >=90 mL/min/1.7 3 m2. The reference r sravanthi was not used to interpret this result as normal/abnormal . Lab Interpretation (test Abnormal code = 44024-5) [facility]ed [id number] 20:32:51 Test Item Value Reference Range Interpretation Comments Creatinine POC (test 0.5 mg/dL 0.6-1.3 L Physici an Notified code = 19739858) eGFR If non- Am >120 See_Comment [Aut omated message] (test code = 16157342) The s ystem which generated this result transmit gregory reference range : >=90 mL/min/1.7 3 m2. The reference r sravanthi was not used to interpret this result as normal/abnormal . eGFR If Am (test >120 See_Comment [A utomated message] code = 80998009) The system which generated this result transmit gregory reference range : >=90 mL/min/1.7 3 m2. The reference r sravanthi was not used to interpret this result as normal/abnormal . Lab Interpretation (test Abnormal code = 07379-9) [facility] docked [id number] 20:32:51 Test Item Value Reference Range Interpretation Comments Creatinine POC (test 0.5 mg/dL 0.6-1.3 L Physici an Notified code = 52617174) eGFR If non- Am >120 See_Comment [Aut omated message] (test code = 57705048) The s ystem which generated this result transmit gregory reference range : >=90 mL/min/1.7 3 m2. The reference r sravanthi was not used to interpret this result as normal/abnormal . eGFR If Am (test >120 See_Comment [A utomated message] code = 11284867) The system which generated this result transmit gregory reference range : >=90 mL/min/1.7 3 m2. The reference r sravanthi was not used to interpret this result as normal/abnormal . Lab Interpretation (test Abnormal code = 62544-1) [facility] CREATININE POC docked [id number] 20:32:51 Test Item Value Reference Range Interpretation Comments Creatinine POC (test 0.5 mg/dL 0.6-1.3 L Physici an Notified code = 10475296) eGFR If non- Am >120 See_Comment [Aut omated message] (test code = 18651036) The s ystem which generated this result transmit gregory reference range : >=90 mL/min/1.7 3 m2. The reference r sravanthi was not used to interpret this result as normal/abnormal . eGFR If Am (test >120 See_Comment [A utomated message] code = 89878916) The system which generated this result transmit gregory reference range : >=90 mL/min/1.7 3 m2. The reference r sravanthi was not used to interpret this result as normal/abnormal . Lab Interpretation (test Abnormal code = 17848-0) [facility] CREATININE POC docked [id number] 20:32:51 Test Item Value Reference Range Interpretation Comments Creatinine POC (test 0.5 mg/dL 0.6-1.3 L Physici an Notified code = 66363962) eGFR If non- Am >120 See_Comment [Aut omated message] (test code = 14997351) The s ystem which generated this result transmit gregory reference range : >=90 mL/min/1.7 3 m2. The reference r sravanthi was not used to interpret this result as normal/abnormal . eGFR If Am (test >120 See_Comment [A utomated message] code = 74118420) The system which generated this result transmit gregory reference range : >=90 mL/min/1.7 3 m2. The reference r sravanthi was not used to interpret this result as normal/abnormal . Lab Interpretation (test Abnormal code = 76346-5) [facility] CREATININE POC docked [id number] 20:32:51 Test Item Value Reference Range Interpretation Comments Creatinine POC (test 0.5 mg/dL 0.6-1.3 L Physici an Notified code = 99564185) eGFR If non- Am >120 See_Comment [Aut omated message] (test code = 66443752) The s ystem which generated this result transmit gregory reference range : >=90 mL/min/1.7 3 m2. The reference r sravanthi was not used to interpret this result as normal/abnormal . eGFR If Am (test >120 See_Comment [A utomated message] code = 52748486) The system which generated this result transmit gregory reference range : >=90 mL/min/1.7 3 m2. The reference r sravanthi was not used to interpret this result as normal/abnormal . Lab Interpretation (test Abnormal code = 03786-6) [facility] CREATININE POC docked [id number] 20:32:51 Test Item Value Reference Range Interpretation Comments Creatinine POC (test 0.5 mg/dL 0.6-1.3 L Physici an Notified code = 62947241) eGFR If non- Am >120 See_Comment [Aut omated message] (test code = 94149038) The s ystem which generated this result transmit gregory reference range : >=90 mL/min/1.7 3 m2. The reference r sravanthi was not used to interpret this result as normal/abnormal . eGFR If Am (test >120 See_Comment [A utomated message] code = 60601173) The system which generated this result transmit gregory reference range : >=90 mL/min/1.7 3 m2. The reference r sravanthi was not used to interpret this result as normal/abnormal . Lab Interpretation (test Abnormal code = 12224-2) [id number] Test Item Value Reference Interpretation Comments [...] valves. Lab Interpretation Abnormal (test code = 68150-1) [facility]/[id number] 20:34:31 Test Item Value Reference Interpretation Comments [...] valves. Lab Interpretation Abnormal (test code = 76628-4) [facility]/[id number] 20:34:31 Test Item Value Reference Interpretation Comments [...] valves. Lab Interpretation Abnormal (test code = 23635-3) [id number]:34[facility]31 Test Item Value Reference Interpretation Comments [...] valves. Lab Interpretation Abnormal (test code = 18348-7) [facility][id number] 20:34:31 Test Item Value Reference Interpretation Comments [...] valves. Lab Interpretation Abnormal (test code = 89812-2) [facility][id number] 20:34:31 Test Item Value Reference Interpretation Comments Range Protime (test code = 12.2 See_Comment H Final 5902-2) Information (Auto Output) [Automated message] The system which generated this result transmitted reference range : 9.3 - 12.0 seconds. The reference range was not used to interpret this result as normal/abnormal . INR (test code = 1.11 See_Comment Final 630-6) Information (Auto Output) [Automated message] The system [...] valves. Lab Interpretation Abnormal (test code = 28277-9) [facility][id number] 20:34:31 Test Item Value Reference Interpretation Comments [...] valves. Lab Interpretation Abnormal (test code = 95732-7) [facility][id number] 20:34:31 Test Item Value Reference Interpretation Comments [...] valves. Lab Interpretation Abnormal (test code = 24863-9) [facility][id number] 20:34:31 Test Item Value Reference Interpretation Comments [...] valves. Lab Interpretation Abnormal (test code = 11262-8) [facility] CenterPROT[facility]OM[facility] TIME/[id number] 20:34:31 Test Item Value Reference Range Interpretation Comments PROTIME (BEAKER) 12.2 seconds 9.3-12.0 H Final Infor mation (test code = 759) (Auto Outp ut) INR (BEAKER) (test 1.11 See_Comment Final Inf ormation code = 370) (Auto Output) [Automated mess age] The system [employer] generated this result transmitted ref erence range: <=5.90. The reference range was not used to int erpret this result as normal/abnormal . RECOMMENDED COUMADIN/WARFARIN INR THERAPY RANGESSTANDARD DOSE: 2.0 - 3.0 Includes: PROPHYLAXIS for venous thrombosis, systemic embolization; TREATMENT for venous thrombosis and/or pulmonary embolus.HIGH RISK: Target INR is 2.5-3.5 for patients with mechanical heart valves.CT, [id number] 20:32:00Unlisted Reason for Exam - Click Yes and Enter Reason Below->NoIs this for enterography?->NoWill this procedure require oral contrast?->No [facility] 1985 Sex: MFINAL [...] MDReport Verified Date/Time: 07/30/2021 20:32:18 Reading Location: [address] Reading Room Basic metabolic panel (Na, K+, Cl, CO2, Glu, Ca, BUN, Cr)2021-07-30 20:00:22 Test Item Value Reference Range Interpretation Comments Sodium (test code = 135 meq/L 994-052 3974-2) Potassium (test code = 4.2 meq/L 3.6-5.5 2823-3) Chloride (test code = 103 meq/L 98-106 2075-0) CO2 (test code = 24 meq/L 20-29 8-9) BUN (test code = 8 mg/dL 10-26 L 3094-0) Creatinine (test code 0.75 mg/dL 0.50-1.20 = 2160-0) Glucose (test code = 77 mg/dL 70-110 2345-7) Calcium (test code = 9.1 mg/dL 8.5-10.5 98874-9) EGFR (test code = 118 mL/min/1.73 [place] [address]-8) NOT ACCURATE CREATININE CLEARANCE IN PREDICTING GLOMERULAR FILTRATION RATE . ESTIMATED GFR I S NOT APPLICABLE FOR DIALYSIS PATIENTS. BRISA (test code = BRISA) [employer] Admin ID - [id number] r ID - [id number] r ID - [id number] r ID - [id number] r ID - [id number] r ID - [id number] r ID - [id number] r ID - [id number] r ID - [id number] r ID - [id number] r ID - [id number] r ID - [id number] Lab Interpretation Abnormal (test code = 04952-0) [facility] metabolic panel (Na, K+, Cl, CO2, Glu, Ca, BUN, Cr)2021-07-30 20:00:22 Test Item Value Reference Range Interpretation Comments Sodium (test code = 135 meq/L 190-825 5096-2) Potassium (test code = 4.2 meq/L 3.6-5.5 2823-3) Chloride (test code = 103 meq/L 98-106 2075-0) CO2 (test code = 24 meq/L 20-29 8-9) BUN (test code = 8 mg/dL 10-26 L 3094-0) Creatinine (test code 0.75 mg/dL 0.50-1.20 = 2160-0) Glucose (test code = 77 mg/dL 70-110 2345-7) Calcium (test code = 9.1 mg/dL 8.5-10.5 07268-2) EGFR (test code = 118 mL/min/1.73 [place] [address]-2) NOT ACCURATE CREATININE CLEARANCE IN PREDICTING GLOMERULAR FILTRATION RATE . ESTIMATED GFR I S NOT APPLICABLE FOR DIALYSIS PATIENTS. BRISA (test code = BRISA) Big Data Admin ID - [id number] r ID - [id number] r ID - [id number] r ID - [id number] r ID - [id number] r ID - [id number] r ID - [id number] r ID - [id number] r ID - [id number] r ID - [id number] r ID - [id number] r ID - [id number] Lab Interpretation Abnormal (test code = 88728-0) [facility] metabolic panel (Na, K+, Cl, CO2, Glu, Ca, BUN, Cr)2021-07-30 20:00:22 Test Item Value Reference Range Interpretation Comments Sodium (test code = 135 meq/L 040-042 7525-2) Potassium (test code = 4.2 meq/L 3.6-5.5 2823-3) Chloride (test code = 103 meq/L 98-106 2075-0) CO2 (test code = 24 meq/L -2028-03) BUN (test code = 8 mg/dL 10-26 L 3094-0) Creatinine (test code 0.75 mg/dL 0.50-1.20 = 2160-0) Glucose (test code = 77 mg/dL 70-110 2345-7) Calcium (test code = 9.1 mg/dL 8.5-10.5 29339-9) EGFR (test code = 118 mL/min/1.73 sq m [place] [place] [address]-4) NOT ACCURATE CREATININE CLEARANCE IN PREDICTING GLOMERULAR FILTRATION RATE . ESTIMATED GFR I S NOT APPLICABLE FOR DIALYSIS PATIENTS. BRISA (test code = BRISA) Big Data Admin ID - [id number] r ID - [id number] r ID - [id number] r ID - [id number] r ID - [id number] r ID - [id number] r ID - [id number] r ID - [id number] r ID - [id number] r ID - [id number] r ID - [id number] r ID - [id number] Lab Interpretation Abnormal (test code = 42523-1) [facility] (Na, K+, Cl, CO2, Glu, Ca, BUN, Cr)2021-07-30 20:00:22 Test Item Value Reference Range Interpretation Comments Sodium (test code = 135 meq/L 625-814 8397-2) Potassium (test code = 4.2 meq/L 3.6-5.5 2823-3) Chloride (test code = 103 meq/L 98-106 2075-0) CO2 (test code = 24 meq/L -2028-03) BUN (test code = 8 mg/dL 10-26 L 3094-0) Creatinine (test code 0.75 mg/dL 0.50-1.20 = 2160-0) Glucose (test code = 77 mg/dL 70-110 2345-7) Calcium (test code = 9.1 mg/dL 8.5-10.5 75509-5) EGFR (test code = 118 mL/min/1.[place] [address]-5) NOT ACCURATE CREATININE CLEARANCE IN PREDICTING GLOMERULAR FILTRATION RATE . ESTIMATED GFR I S NOT APPLICABLE FOR DIALYSIS PATIENTS. BRISA (test code = BRISA) Big Data Admin ID - [id number] r ID - [id number] r ID - [id number] r ID - [id number] r ID - [id number] r ID - [id number] r ID - [id number] r ID - [id number] r ID - [id number] r ID - [id number] r ID - [id number] r ID - [id number] Lab Interpretation Abnormal (test code = 80393-8) [facility] (Na, K+, Cl, CO2, Glu, Ca, BUN, Cr)2021-07-30 20:00:22 Test Item Value Reference Range Interpretation Comments Sodium (test code = 135 meq/L 163-309 0447-2) Potassium (test code = 4.2 meq/L 3.6-5.5 2823-3) Chloride (test code = 103 meq/L 98-106 2075-0) CO2 (test code = 24 meq/L -29 2027-9) BUN (test code = 8 mg/dL 10-26 L 3094-0) Creatinine (test code 0.75 mg/dL 0.50-1.20 = 2160-0) Glucose (test code = 77 mg/dL 70-110 2345-7) Calcium (test code = 9.1 mg/dL 8.5-10.5 99875-0) EGFR (test code = 118 mL/min/1.73 [place] [address]-4) NOT ACCURATE CREATININE CLEARANCE IN PREDICTING GLOMERULAR FILTRATION RATE . ESTIMATED GFR I S NOT APPLICABLE FOR DIALYSIS PATIENTS. BRISA (test code = BRISA) [employer] Admin ID - [id number] r ID - [id number] r ID - [id number] r ID - [id number] r ID - [id number] r ID - [id number] r ID - [id number] r ID - [id number] r ID - [id number] r ID - [id number] r ID - [id number] r ID - [id number] Lab Interpretation Abnormal (test code = 30864-7) [facility] metabolic panel (Na, K+, Cl, CO2, Glu, Ca, BUN, Cr)2021-07-30 20:00:22 Test Item Value Reference Range Interpretation Comments Sodium (test code = 135 meq/L 310-874 9640-2) Potassium (test code = 4.2 meq/L 3.6-5.5 2823-3) Chloride (test code = 103 meq/L 98-106 2075-0) CO2 (test code = 24 meq/L 20-29 2028-9) BUN (test code = 8 mg/dL 10-26 L 3094-0) Creatinine (test code 0.75 mg/dL 0.50-1.20 = 2160-0) Glucose (test code = 77 mg/dL 70-110 2345-7) Calcium (test code = 9.1 mg/dL 8.5-10.5 06268-9) EGFR (test code = 118 mL/min/1.73 [place] [address]-8) NOT ACCURATE CREATININE CLEARANCE IN PREDICTING GLOMERULAR FILTRATION RATE . ESTIMATED GFR I S NOT APPLICABLE FOR DIALYSIS PATIENTS. BRISA (test code = BRISA) [employer] Admin ID - [id number] r ID - [id number] r ID - [id number] r ID - [id number] r ID - [id number] r ID - [id number] r ID - [id number] r ID - [id number] r ID - [id number] r ID - [id number] r ID - [id number] r ID - [id number] Lab Interpretation Abnormal (test code = 05357-3) [facility] metabolic panel (Na, K+, Cl, CO2, Glu, Ca, BUN, Cr)2021-07-30 20:00:22 Test Item Value Reference Range Interpretation Comments Sodium (test code = 135 meq/L 895-757 6814-2) Potassium (test code = 4.2 meq/L 3.6-5.5 2823-3) Chloride (test code = 103 meq/L 98-106 2075-0) CO2 (test code = 24 meq/L -2028-03) BUN (test code = 8 mg/dL 10-26 L 3094-0) Creatinine (test code 0.75 mg/dL 0.50-1.20 = 2160-0) Glucose (test code = 77 mg/dL 70-110 2345-7) Calcium (test code = 9.1 mg/dL 8.5-10.5 03564-6) EGFR (test code = 118 mL/min/1.73 sq m [place] [place] [address]-2) NOT ACCURATE CREATININE CLEARANCE IN PREDICTING GLOMERULAR FILTRATION RATE . ESTIMATED GFR I S NOT APPLICABLE FOR DIALYSIS PATIENTS. BRISA (test code = BRISA) [employer] Admin ID - [id number] r ID - [id number] r ID - [id number] r ID - [id number] r ID - [id number] r ID - [id number] r ID - [id number] r ID - [id number] r ID - [id number] r ID - [id number] r ID - [id number] r ID - [id number] Lab Interpretation Abnormal (test code = 01120-2) [facility] (Na, K+, Cl, CO2, Glu, Ca, BUN, Cr)2021-07-30 20:00:22 Test Item Value Reference Range Interpretation Comments Sodium (test code = 135 meq/L 953-523 7410-2) Potassium (test code = 4.2 meq/L 3.6-5.5 2823-3) Chloride (test code = 103 meq/L 98-106 2075-0) CO2 (test code = 24 meq/L 2028-03) BUN (test code = 8 mg/dL 10-26 L 3094-0) Creatinine (test code 0.75 mg/dL 0.50-1.20 = 2160-0) Glucose (test code = 77 mg/dL 70-110 2345-7) Calcium (test code = 9.1 mg/dL 8.5-10.5 83859-2) EGFR (test code = 118 mL/min/1.73 [place] [address]-2) NOT ACCURATE CREATININE CLEARANCE IN PREDICTING GLOMERULAR FILTRATION RATE . ESTIMATED GFR I S NOT APPLICABLE FOR DIALYSIS PATIENTS. BRISA (test code = BRISA) [employer] Admin ID - [id number] r ID - [id number] r ID - [id number] r ID - [id number] r ID - [id number] r ID - [id number] r ID - [id number] r ID - [id number] r ID - [id number] r ID - [id number] r ID - [id number] r ID - [id number] Lab Interpretation Abnormal (test code = 57404-0) [facility] (Na, K+, Cl, CO2, Glu, Ca, BUN, Cr)2021-07-30 20:00:22 Test Item Value Reference Range Interpretation Comments Sodium (test code = 135 meq/L 407-175 5079-2) Potassium (test code = 4.2 meq/L 3.6-5.5 2823-3) Chloride (test code = 103 meq/L 98-106 2075-0) CO2 (test code = 24 meq/L 20-29 2027-9) BUN (test code = 8 mg/dL 10-26 L 3094-0) Creatinine (test code 0.75 mg/dL 0.50-1.20 = 2160-0) Glucose (test code = 77 mg/dL 70-110 2345-7) Calcium (test code = 9.1 mg/dL 8.5-10.5 16760-3) EGFR (test code = 118 mL/min/1.73 [place] [address]-5) NOT ACCURATE CREATININE CLEARANCE IN PREDICTING GLOMERULAR FILTRATION RATE . ESTIMATED GFR I S NOT APPLICABLE FOR DIALYSIS PATIENTS. BRISA (test code = BRISA) [employer] ID - [id number] r ID - [id number] r ID - [id number] r ID - [id number] r ID - [id number] r ID - [id number] r ID - [id number] r ID - [id number] r ID - [id number] r ID - [id number] r ID - [id number] r ID - [id number] Lab Interpretation Abnormal (test code = 02294-1) [facility] [id number] 20:00:22 Test Item Value Reference Range Interpretation [...] S NOT APPLICABLE FOR DIALYSIS PATIEN TS. [employer] ID - [id number] ID - [id number] ID - [id number] ID - [id number] ID - [id number] ID - [id number] ID - [id number] ID - [id number] ID - [id number] ID - [id number] ID - [id number] ID - [id number] with platelet count + automated [id number] 19:43:00 Test Item Value Reference Range Interpretation Comments WBC (test code = 6690-2) 6.2 See_Comment [A utomated message] The system [employer] generated this result transmitted ref erence range: 4.0 - 10 .0 K/L. The refe rence range was not u sed to interpret this result as normal/abnor mal. RBC (test code = 789-8) 3.93 See_Comment L [Au tomated message] The system [employer] generated this result transmitted ref erence range: 4.20 - 5 .80 M/L. The refe rence range was not u sed to interpret this result as normal/abnor mal. MCHC (test code = 786-4) 34.2 See_Comment L [A utomated message] The system [employer] generated this result transmitted ref erence range: [...] See_Comment [Aut omated message] 777-3) The system [employer] generated this result transmitted ref erence range: 150 - 43 0 K/CU MM. The referen ce range was not u sed to interpret this result as normal/abnor mal. MPV (test code = 8.7 fL 6.0-11.5 54772-7) nRBC (test code = 413) 0 See_Comment [Aut omated message] The system [employer] generated this result transmitted ref erence range: [...] See_Comment [Aut omated message] 670) The system [employer] generated this result transmitted ref erence range: 1.80 - 8 .00 K/L. The refe rence range was not u sed to interpret this result as normal/abnor mal. # Lymphs (test code = 2.15 See_Comment [Auto mated message] 414) The system [employer] generated this result transmitted ref erence range: 1.48 - 4 .50 K/L. The refe rence range was not u sed to interpret this result as normal/abnor mal. # Monos (test code = 0.49 See_Comment [Autom ated message] 415) The system [employer] generated this result transmitted ref erence range: 0.00 - 1 .30 K/L. The refe rence range was not u sed to interpret this result as normal/abnor mal. # Eos (test code = 416) 0.51 See_Comment H [Au tomated message] The system [employer] generated this result transmitted ref erence range: 0.00 - 0 .50 K/L. The refe rence range was not u sed to interpret this result as normal/abnor mal. # Baso (test code = 417) 0.05 See_Comment [A utomated message] The system [employer] generated this result transmitted ref erence range: 0.00 - 0 .20 K/L. The refe rence range was not u sed to interpret this result as normal/abnor mal. Immature 0 % 0-0 Granulocytes-Relative (test code = 2801) Lab Interpretation (test Abnormal code = 61557-4) [facility] with platelet count + automated [id number] 19:43:00 Test Item Value Reference Range Interpretation Comments WBC (test code = 6690-2) 6.2 See_Comment [A utomated message] The system [employer] generated this result transmitted ref erence range: 4.0 - 10 .0 K/L. The refe rence range was not u sed to interpret this result as normal/abnor mal. RBC (test code = 789-8) 3.93 See_Comment L [Au tomated message] The system [employer] generated this result transmitted ref erence range: 4.20 - 5 .80 M/L. The refe rence range was not u sed to interpret this result as normal/abnor mal. MCHC (test code = 786-4) 34.2 See_Comment L [A utomated message] The system [employer] generated this result transmitted ref erence range: [...] See_Comment [Aut omated message] 777-3) The system [employer] generated this result transmitted ref erence range: 150 - 43 0 K/CU MM. The referen ce range was not u sed to interpret this result as normal/abnor mal. MPV (test code = 8.7 fL 6.0-11.5 17239-0) nRBC (test code = 413) 0 See_Comment [Aut omated message] The system [employer] generated this result transmitted ref erence range: [...] See_Comment [Aut omated message] 670) The system [employer] generated this result transmitted ref erence range: 1.80 - 8 .00 K/L. The refe rence range was not u sed to interpret this result as normal/abnor mal. # Lymphs (test code = 2.15 See_Comment [Auto mated message] 414) The system [employer] generated this result transmitted ref erence range: 1.48 - 4 .50 K/L. The refe rence range was not u sed to interpret this result as normal/abnor mal. # Monos (test code = 0.49 See_Comment [Autom ated message] 415) The system [employer] generated this result transmitted ref erence range: 0.00 - 1 .30 K/L. The refe rence range was not u sed to interpret this result as normal/abnor mal. # Eos (test code = 416) 0.51 See_Comment H [Au tomated message] The system [employer] generated this result transmitted ref erence range: 0.00 - 0 .50 K/L. The refe rence range was not u sed to interpret this result as normal/abnor mal. # Baso (test code = 417) 0.05 See_Comment [A utomated message] The system [employer] generated this result transmitted ref erence range: 0.00 - 0 .20 K/L. The refe rence range was not u sed to interpret this result as normal/abnor mal. Immature 0 % 0-0 Granulocytes-Relative (test code = 2801) Lab Interpretation (test Abnormal code = 17380-3) [facility] with platelet count + automated [id number] 19:43:00 Test Item Value Reference Range Interpretation Comments WBC (test code = 6690-2) 6.2 See_Comment [A utomated message] The system [employer] generated this result transmitted ref erence range: 4.0 - 10 .0 K/L. The refe rence range was not u sed to interpret this result as normal/abnor mal. RBC (test code = 789-8) 3.93 See_Comment L [Au tomated message] The system [employer] generated this result transmitted ref erence range: 4.20 - 5 .80 M/L. The refe rence range was not u sed to interpret this result as normal/abnor mal. MCHC (test code = 786-4) 34.2 See_Comment L [A utomated message] The system [employer] generated this result transmitted ref erence range: [...] See_Comment [Aut omated message] 777-3) The system [employer] generated this result transmitted ref erence range: 150 - 43 0 K/CU MM. The referen ce range was not u sed to interpret this result as normal/abnor mal. MPV (test code = 8.7 fL 6.0-11.5 76061-5) nRBC (test code = 413) 0 See_Comment [Aut omated message] The system [employer] generated this result transmitted ref erence range: [...] See_Comment [Aut omated message] 670) The system [employer] generated this result transmitted ref erence range: 1.80 - 8 .00 K/L. The refe rence range was not u sed to interpret this result as normal/abnor mal. # Lymphs (test code = 2.15 See_Comment [Auto mated message] 414) The system [employer] generated this result transmitted ref erence range: 1.48 - 4 .50 K/L. The refe rence range was not u sed to interpret this result as normal/abnor mal. # Monos (test code = 0.49 See_Comment [Autom ated message] 415) The system [employer] generated this result transmitted ref erence range: 0.00 - 1 .30 K/L. The refe rence range was not u sed to interpret this result as normal/abnor mal. # Eos (test code = 416) 0.51 See_Comment H [Au tomated message] The system [employer] generated this result transmitted ref erence range: 0.00 - 0 .50 K/L. The refe rence range was not u sed to interpret this result as normal/abnor mal. # Baso (test code = 417) 0.05 See_Comment [A utomated message] The system [employer] generated this result transmitted ref erence range: 0.00 - 0 .20 K/L. The refe rence range was not u sed to interpret this result as normal/abnor mal. Immature 0 % 0-0 Granulocytes-Relative (test code = 2801) Lab Interpretation (test Abnormal code = 72511-1) [facility] with platelet count + automated [id number] 19:43:00 Test Item Value Reference Range Interpretation Comments WBC (test code = 6690-2) 6.2 See_Comment [A utomated message] The system [employer] generated this result transmitted ref erence range: 4.0 - 10 .0 K/L. The refe rence range was not u sed to interpret this result as normal/abnor mal. RBC (test code = 789-8) 3.93 See_Comment L [Au tomated message] The system [employer] generated this result transmitted ref erence range: 4.20 - 5 .80 M/L. The refe rence range was not u sed to interpret this result as normal/abnor mal. MCHC (test code = 786-4) 34.2 See_Comment L [A utomated message] The system [employer] generated this result transmitted ref erence range: [...] See_Comment [Aut omated message] 597-3) The system [employer] generated this result transmitted ref erence range: 150 - 43 0 K/CU MM. The referen ce range was not u sed to interpret this result as normal/abnor mal. MPV (test code = 8.7 fL 6.0-11.5 27963-6) nRBC (test code = 413) 0 See_Comment [Aut omated message] The system [employer] generated this result transmitted ref erence range: [...] See_Comment [Aut omated message] 670) The system [employer] generated this result transmitted ref erence range: 1.80 - 8 .00 K/L. The refe rence range was not u sed to interpret this result as normal/abnor mal. # Lymphs (test code = 2.15 See_Comment [Auto mated message] 414) The system [employer] generated this result transmitted ref erence range: 1.48 - 4 .50 K/L. The refe rence range was not u sed to interpret this result as normal/abnor mal. # Monos (test code = 0.49 See_Comment [Autom ated message] 415) The system [employer] generated this result transmitted ref erence range: 0.00 - 1 .30 K/L. The refe rence range was not u sed to interpret this result as normal/abnor mal. # Eos (test code = 416) 0.51 See_Comment H [Au tomated message] The system [employer] generated this result transmitted ref erence range: 0.00 - 0 .50 K/L. The refe rence range was not u sed to interpret this result as normal/abnor mal. # Baso (test code = 417) 0.05 See_Comment [A utomated message] The system [employer] generated this result transmitted ref erence range: 0.00 - 0 .20 K/L. The refe rence range was not u sed to interpret this result as normal/abnor mal. Immature 0 % 0-0 Granulocytes-Relative (test code = 2801) Lab Interpretation (test Abnormal code = 94648-0) [facility] + automated [id number] 19:43:00 Test Item Value Reference Range Interpretation Comments WBC (test code = 6690-2) 6.2 See_Comment [A utomated message] The system [employer] generated this result transmitted ref erence range: 4.0 - 10 .0 K/L. The refe rence range was not u sed to interpret this result as normal/abnor mal. RBC (test code = 789-8) 3.93 See_Comment L [Au tomated message] The system [employer] generated this result transmitted ref erence range: 4.20 - 5 .80 M/L. The refe rence range was not u sed to interpret this result as normal/abnor mal. MCHC (test code = 786-4) 34.2 See_Comment L [A utomated message] The system [employer] generated this result transmitted ref erence range: [...] See_Comment [Aut omated message] 777-3) The system [employer] generated this result transmitted ref erence range: 150 - 43 0 K/CU MM. The referen ce range was not u sed to interpret this result as normal/abnor mal. MPV (test code = 8.7 fL 6.0-11.5 01871-1) nRBC (test code = 413) 0 See_Comment [Aut omated message] The system [employer] generated this result transmitted ref erence range: [...] See_Comment [Aut omated message] 670) The system [employer] generated this result transmitted ref erence range: 1.80 - 8 .00 K/L. The refe rence range was not u sed to interpret this result as normal/abnor mal. # Lymphs (test code = 2.15 See_Comment [Auto mated message] 414) The system [employer] generated this result transmitted ref erence range: 1.48 - 4 .50 K/L. The refe rence range was not u sed to interpret this result as normal/abnor mal. # Monos (test code = 0.49 See_Comment [Autom ated message] 415) The system [employer] generated this result transmitted ref erence range: 0.00 - 1 .30 K/L. The refe rence range was not u sed to interpret this result as normal/abnor mal. # Eos (test code = 416) 0.51 See_Comment H [Au tomated message] The system [employer] generated this result transmitted ref erence range: 0.00 - 0 .50 K/L. The refe rence range was not u sed to interpret this result as normal/abnor mal. # Baso (test code = 417) 0.05 See_Comment [A utomated message] The system [employer] generated this result transmitted ref erence range: 0.00 - 0 .20 K/L. The refe rence range was not u sed to interpret this result as normal/abnor mal. Immature 0 % 0-0 Granulocytes-Relative (test code = 2801) Lab Interpretation (test Abnormal code = 43623-2) [facility] with platelet count + automated [id number] 19:43:00 Test Item Value Reference Range Interpretation Comments WBC (test code = 6690-2) 6.2 See_Comment [A utomated message] The system [employer] generated this result transmitted ref erence range: 4.0 - 10 .0 K/L. The refe rence range was not u sed to interpret this result as normal/abnor mal. RBC (test code = 789-8) 3.93 See_Comment L [Au tomated message] The system [employer] generated this result transmitted ref erence range: 4.20 - 5 .80 M/L. The refe rence range was not u sed to interpret this result as normal/abnor mal. MCHC (test code = 786-4) 34.2 See_Comment L [A utomated message] The system [employer] generated this result transmitted ref erence range: [...] See_Comment [Aut omated message] 777-3) The system [employer] generated this result transmitted ref erence range: 150 - 43 0 K/CU MM. The referen ce range was not u sed to interpret this result as normal/abnor mal. MPV (test code = 8.7 fL 6.0-11.5 09264-8) nRBC (test code = 413) 0 See_Comment [Aut omated message] The system [employer] generated this result transmitted ref erence range: [...] See_Comment [Aut omated message] 670) The system [employer] generated this result transmitted ref erence range: 1.80 - 8 .00 K/L. The refe rence range was not u sed to interpret this result as normal/abnor mal. # Lymphs (test code = 2.15 See_Comment [Auto mated message] 414) The system [employer] generated this result transmitted ref erence range: 1.48 - 4 .50 K/L. The refe rence range was not u sed to interpret this result as normal/abnor mal. # Monos (test code = 0.49 See_Comment [Autom ated message] 415) The system [employer] generated this result transmitted ref erence range: 0.00 - 1 .30 K/L. The refe rence range was not u sed to interpret this result as normal/abnor mal. # Eos (test code = 416) 0.51 See_Comment H [Au tomated message] The system [employer] generated this result transmitted ref erence range: 0.00 - 0 .50 K/L. The refe rence range was not u sed to interpret this result as normal/abnor mal. # Baso (test code = 417) 0.05 See_Comment [A utomated message] The system [employer] generated this result transmitted ref erence range: 0.00 - 0 .20 K/L. The refe rence range was not u sed to interpret this result as normal/abnor mal. Immature 0 % 0-0 Granulocytes-Relative (test code = 2801) Lab Interpretation (test Abnormal code = 92423-7) [facility] with platelet count + automated [id number] 19:43:00 Test Item Value Reference Range Interpretation Comments WBC (test code = 6690-2) 6.2 See_Comment [A utomated message] The system [employer] generated this result transmitted ref erence range: 4.0 - 10 .0 K/L. The refe rence range was not u sed to interpret this result as normal/abnor mal. RBC (test code = 789-8) 3.93 See_Comment L [Au tomated message] The system [employer] generated this result transmitted ref erence range: 4.20 - 5 .80 M/L. The refe rence range was not u sed to interpret this result as normal/abnor mal. MCHC (test code = 786-4) 34.2 See_Comment L [A utomated message] The system [employer] generated this result transmitted ref erence range: [...] See_Comment [Aut omated message] 777-3) The system [employer] generated this result transmitted ref erence range: 150 - 43 0 K/CU MM. The referen ce range was not u sed to interpret this result as normal/abnor mal. MPV (test code = 8.7 fL 6.0-11.5 67406-2) nRBC (test code = 413) 0 See_Comment [Aut omated message] The system [employer] generated this result transmitted ref erence range: [...] See_Comment [Aut omated message] 670) The system [employer] generated this result transmitted ref erence range: 1.80 - 8 .00 K/L. The refe rence range was not u sed to interpret this result as normal/abnor mal. # Lymphs (test code = 2.15 See_Comment [Auto mated message] 414) The system [employer] generated this result transmitted ref erence range: 1.48 - 4 .50 K/L. The refe rence range was not u sed to interpret this result as normal/abnor mal. # Monos (test code = 0.49 See_Comment [Autom ated message] 415) The system [employer] generated this result transmitted ref erence range: 0.00 - 1 .30 K/L. The refe rence range was not u sed to interpret this result as normal/abnor mal. # Eos (test code = 416) 0.51 See_Comment H [Au tomated message] The system [employer] generated this result transmitted ref erence range: 0.00 - 0 .50 K/L. The refe rence range was not u sed to interpret this result as normal/abnor mal. # Baso (test code = 417) 0.05 See_Comment [A utomated message] The system [employer] generated this result transmitted ref erence range: 0.00 - 0 .20 K/L. The refe rence range was not u sed to interpret this result as normal/abnor mal. Immature 0 % 0-0 Granulocytes-Relative (test code = 2801) Lab Interpretation (test Abnormal code = 02905-0) [facility] with platelet count + automated [id number] 19:43:00 Test Item Value Reference Range Interpretation Comments WBC (test code = 6690-2) 6.2 See_Comment [A utomated message] The system [employer] generated this result transmitted ref erence range: 4.0 - 10 .0 K/L. The refe rence range was not u sed to interpret this result as normal/abnor mal. RBC (test code = 789-8) 3.93 See_Comment L [Au tomated message] The system [employer] generated this result transmitted ref erence range: 4.20 - 5 .80 M/L. The refe rence range was not u sed to interpret this result as normal/abnor mal. MCHC (test code = 786-4) 34.2 See_Comment L [A utomated message] The system [employer] generated this result transmitted ref erence range: [...] See_Comment [Aut omated message] 777-3) The system [employer] generated this result transmitted ref erence range: 150 - 43 0 K/CU MM. The referen ce range was not u sed to interpret this result as normal/abnor mal. MPV (test code = 8.7 fL 6.0-11.5 50577-9) nRBC (test code = 413) 0 See_Comment [Aut omated message] The system [employer] generated this result transmitted ref erence range: [...] See_Comment [Aut omated message] 670) The system [employer] generated this result transmitted ref erence range: 1.80 - 8 .00 K/L. The refe rence range was not u sed to interpret this result as normal/abnor mal. # Lymphs (test code = 2.15 See_Comment [Auto mated message] 414) The system [employer] generated this result transmitted ref erence range: 1.48 - 4 .50 K/L. The refe rence range was not u sed to interpret this result as normal/abnor mal. # Monos (test code = 0.49 See_Comment [Autom ated message] 415) The system [employer] generated this result transmitted ref erence range: 0.00 - 1 .30 K/L. The refe rence range was not u sed to interpret this result as normal/abnor mal. # Eos (test code = 416) 0.51 See_Comment H [Au tomated message] The system [employer] generated this result transmitted ref erence range: 0.00 - 0 .50 K/L. The refe rence range was not u sed to interpret this result as normal/abnor mal. # Baso (test code = 417) 0.05 See_Comment [A utomated message] The system [employer] generated this result transmitted ref erence range: 0.00 - 0 .20 K/L. The refe rence range was not u sed to interpret this result as normal/abnor mal. Immature 0 % 0-0 Granulocytes-Relative (test code = 2801) Lab Interpretation (test Abnormal code = 27012-4) [facility] with platelet count + automated [id number] 19:43:00 Test Item Value Reference Range Interpretation Comments WBC (test code = 6690-2) 6.2 See_Comment [A utomated message] The system [employer] generated this result transmitted ref erence range: 4.0 - 10 .0 K/L. The refe rence range was not u sed to interpret this result as normal/abnor mal. RBC (test code = 789-8) 3.93 See_Comment L [Au tomated message] The system [employer] generated this result transmitted ref erence range: 4.20 - 5 .80 M/L. The refe rence range was not u sed to interpret this result as normal/abnor mal. MCHC (test code = 786-4) 34.2 See_Comment L [A utomated message] The system [employer] generated this result transmitted ref erence range: [...] code = 308 See_Comment [Aut omated message] 047-3) The system [employer] generated this result transmitted ref erence range: 150 - 43 0 K/CU MM. The referen ce range was not u sed to interpret this result as normal/abnor mal. MPV (test code = 8.7 fL 6.0-11.5 77284-8) nRBC (test code = 413) 0 See_Comment [Aut omated message] The system [employer] generated this result transmitted ref erence range: [...] See_Comment [Aut omated message] 670) The system [employer] generated this result transmitted ref erence range: 1.80 - 8 .00 K/L. The refe rence range was not u sed to interpret this result as normal/abnor mal. # Lymphs (test code = 2.15 See_Comment [Auto mated message] 414) The system [employer] generated this result transmitted ref erence range: 1.48 - 4 .50 K/L. The refe rence range was not u sed to interpret this result as normal/abnor mal. # Monos (test code = 0.49 See_Comment [Autom ated message] 415) The system [employer] generated this result transmitted ref erence range: 0.00 - 1 .30 K/L. The refe rence range was not u sed to interpret this result as normal/abnor mal. # Eos (test code = 416) 0.51 See_Comment H [Au tomated message] The system [employer] generated this result transmitted ref erence range: 0.00 - 0 .50 K/L. The refe rence range was not u sed to interpret this result as normal/abnor mal. # Baso (test code = 417) 0.05 See_Comment [A utomated message] The system [employer] generated this result transmitted ref erence range: 0.00 - 0 .20 K/L. The refe rence range was not u sed to interpret this result as normal/abnor mal. Immature 0 % 0-0 Granulocytes-Relative (test code = 2801) Lab Interpretation (test Abnormal code = 50053-7) [facility] W/PLT COUNT & AUTO [id number] 19:43:00 Test Item Value Reference Range Interpretation [...] (test code = 416) BASOPHILS ABSOLUTE COUNT (Arrowsight) 0.05 K/ L 0.00-0.20 (test code = 417) IMMATURE GRANULOCYTES-RELATIVE 0 % 0-0 PERCENT (Arrowsight) (test code = 2801) SURGICAL [id number] 07:40:00 RUN DATE: 09/19/18 [facility] *LIVE* PAGE 1 RUN TIME: 740 Specimen Inquiry RUN USER: INTERFACE --PATIENT: VERÓNICA NUNN [facility]: [id number] AGE/SX: 32/M ROOM: [facility] RE09/15/18[facility]: Keith Swann MD : 84 BED: 1 DIS: 09/16/18 STATUS: DIS IN TLOC: SPEC #: [id number] RECD: 09/15/18 STATUS: [place]AN [place] #: [id number] DONA: 09/15/18 [facility] DR: Keith Swann MD ENTERED: 09/18/18 SP TYPE: SURG SPEC OTHR DR: No Primary or Family Physician Self Referred Gale Dowling MDORDERED: GM LEVEL 4 CODES: [id number] - ESOPHAGUS, NOS COPIES TO: No Primary or Family Physician Self Referred Keith Swann MD [address] [place] [address] Gale Dowling MD [address] [place] [address] PROCEDURES: GM LEVEL 4 (Incomplete) TISSUES: 1. [...] CONTINUED ON NEXT PAGE RUN DATE: 09/19/18 [facility]*LIVE* PAGE 2 RUN TIME: 740 Specimen Inquiry RUN USER: INTERFACE SPEC #: [id number] PATIENT: VERÓNICA NUNN #[id number] (Continued) POST-OP DIAGNOSIS Esophagitis, supertial tear in the esophagus, R/O Flor, esosinophilic es PRE-OP DIAGNOSIS Hematemesis Signed SIGNATURE ON FILE Joce Barbosa DO 09/19/18 0740 END OF REPORT BASIC METABOLIC [id number] 08:40:00 Test Item Value Reference Range Interpretation [...] 9.1 mg/dL 8.0-10.5 N CA) CBC W/AUTO [id number] 08:20:00 Test Item Value Reference Range Interpretation [...] (test code NO = MDIFF) CBC W/AUTO [id number] 22:25:00 Test Item Value Reference Range Interpretation [...] (test code NO = MDIFF) CBC W/AUTO [id number] 12:50:00 Test Item Value Reference Range Interpretation [...] (test code NO = MDIFF) CBC W/AUTO [id number] 07:24:00 Test Item Value Reference Range Interpretation [...] REQUIRED (test NO code = MDIFF) PROTHROMBIN [id number] 00:10:00 Test Item Value Reference Range Interpretation Comments PROTHROMBIN TIME 14.0 SECONDS 9.3-12.9 H PATIENT (test code = PTP) INTERNATIONAL NORMAL 1.2 0.8-1.2 N TARGET INR BY RATIO (test code = INDICATIO N Indication INR) INR1. Prophylax is of venous thrombos is 2.0 - 3.0 (orthoped ic surgery), Proph ylaxis of venous thro mbosis (other than hig h-risk surgery), Treat ment [...] (to prevent recurrent infar ct). CBC W/AUTO [id number] 00:03:00 Test Item Value Reference Range Interpretation [...] REQUIRED (test NO code = MDIFF) PROTHROMBIN [id number] 18:57:00 Test Item Value Reference Range Interpretation Comments PT PATIENT (test code = PTP) 13.1 SECONDS 9.3-12.9 H INTERNATIONAL NORMAL RATIO 1.14 INR Unit 0.8-1.2 N (test code = INR) URINALYSIS [id number] 18:56:00 Test Item Value Reference Range Interpretation [...] code = LEUU) - CT ABD PELVIS [id number] 16:49:00 Name: VERÓNICA NUNN [facility] : 1985 Age/S: 32 / M [id number] Unit #: [id number] Loc: [place] [address] Phys: Ivette Choudhary MD Acct: [id number] Dis Date: Status: REG ER PHONE #: [phone] Exam Date: 09/14/2018 1636 FAX #: Reason: abd pain unable to give further info 08/05 mrEXAMS: CPT: [id number] CT ABD PELVIS W/CONT [id number] EXAMINATION: - CT ABD PELVIS W/CONT. LOCATION: [...] 1 Signed Report (CONTINUED) Name: VERÓNICA NUNN [facility] : 1985 Age/S: 32 / M [address] Unit #: [id number] Loc: [place] [address] Phys: Ivette Choudhary MD Acct: [id number] Dis Date: Status: REG ER PHONE #: [phone] Exam Date: 09/14/2018 1632 FAX #: Reason: abd pain unable to give further info 08/05 mr EXAMS: CPT: [id number] CT ABD PELVIS W/CONT [id number] (Continued) CC: Ivette Choudhary MD Technologist:Mariely Brar, RT(R)(CT) CTDI: DLP: Trnscb Date/Time: 09/14/2018 (1648) t.[email or web address].[email or web address] Orig Print D/T: S: 09/14/2018 (1651) CTDI: DLP: PAGE 2 Signed ReportBASIC METABOLIC [id number] 16:06:00 Test Item Value Reference Range Interpretation [...] CA) 9.7 MG/DL 8.5-10.1 N HEPATIC FUNCTION [id number] 16:06:00 Test Item Value Reference Range Interpretation [...] 89 Unit/L 50-136 N code = ALKP) [id number] 16:06:00 Test Item Value Reference Range Interpretation Comments LIPASE (test code = LIP) 173 Unit/L 114-286 N BASIC METABOLIC [id number] 15:56:00 Test Item Value Reference Range Interpretation [...] CA) 9.7 MG/DL 8.5-10.1 N HEPATIC FUNCTION [id number] 15:56:00 Test Item Value Reference Range Interpretation [...] TOTAL (test code Unit/L 50-136 = ALKP) [id number] 15:56:00 Test Item Value Reference Range Interpretation Comments LIPASE (test code = LIP) 173 Unit/L 114-286 N CBC W/AUTO [id number] 15:47:00 Test Item Value Reference Range Interpretation [...]
--- NOTE | 2022-04-04 23:58 | EDPHYS ---
Physician Documentation [facility] Name: Alexy Mock Age: 36 yrs Sex: Male : 1985 Arrival Date: 04/04/2022 Time: 22:41 Bed 3 Private MD: ED Physician John Subramanian HPI: 04/04 23:49 This 36 yrs old Male presents to ER via EMS with complaints of Feeding tube kdr fell out. 23:49 Patient was sent from the longterm after his feeding tube became dislodged. He kdr otherwise has no other complaints or other reason for being here at this time. His vital signs remained stable he does not appear to need emergent intervention. Onset: The symptoms/episode began/occurred suddenly, just prior to arrival, at an unknown time. Severity of symptoms: At their worst the symptoms were. Historical: - Allergies: 22:43 No Known Allergies; jb4 - Home Meds: 22:43 tylenol [Active]; jb4 - PMHx: 22:43 abnormal liver function; adhd; Anemia; Bipolar disorder; DYSPHAGIA; ENCEPHALOPATHY; jb4 epilepsy; Hypothyroidism; MR; pressure ulcer sacral region; - PSHx: 22:43 G tube; jb4 - Immunization history:: Adult Immunizations up to date. - Social history:: Smoking status: Patient denies any tobacco usage or history of. ROS: 23:49 Constitutional: Negative for fever, chills, and weight loss. kdr 23:49 Abdomen/GI: Positive for Feeding tube dislodgment. Exam: 23:49 Constitutional: This is a well developed, well nourished patient who is awake, alert, kdr and in no acute distress. Abdomen/GI: Soft, non-tender, with normal bowel sounds. No distension or tympany. No guarding or rebound. No evidence of tenderness throughout. There is an obvious stoma in the left upper quadrant where the feeding tube had been placed previously. Patient otherwise had no obvious abdominal discomfort or issues Vital Signs: 22:48 BP 141 / 100; Pulse 84; Resp 18; Temp 97.2(A); Pulse Ox 100% on R/A; jb4 23:12 BP 118 / 82; Pulse 80; Resp 16; Pulse Ox 100% on R/A; jb4 04/05 00:30 BP 138 / 104; Pulse 97; Resp 18; Pulse Ox 100% on R/A; jb4 01:32 BP 151 / 92; Pulse 81; Resp 18; Pulse Ox 100% on R/A; jb4 Procedures: 04/04 23:49 G-tube placement: a 14 Belarusian catheter was placed, by the ED physician, John hernandez MD. MDM: 23:57 Patient medically screened. kdr 04/05 00:47 Data reviewed: vital signs, nurses notes, lab test result(s), radiologic studies. kdr 04/04 23:49 Order name: Abdomen 1 View (KUB) XRAY kdr Administered Medications: No medications were administered Disposition Summary: 04/04/22 23:57 Discharge Ordered Location: Home kdr Problem: new kdr Symptoms: are resolved kdr Condition: Stable kdr Diagnosis - Dislodged feeding tube replaced kdr Followup: kdr - With: Private Physician - When: 2 - 3 days - Reason: If symptoms return, Further diagnostic work-up, Recheck today's complaints, Continuance of care, Re-evaluation by your physician Discharge Instructions: - Discharge Summary Sheet kdr - How to Care for a Feeding Tube, [id number] kdr Forms: - Medication Reconciliation Form kdr - Thank You Letter kdr Signatures: Dispatcher [employer] EDMS John Subramanian MD MD kdr Nelson Sosa, RN RN jb4
--- NOTE | 2022-04-04 23:58 | ER ---
Nurse's Notes [facility] Name: Alexy Mock Age: 36 yrs Sex: Male : 1985 Arrival Date: 04/04/2022 Time: 22:41 Bed 3 Private MD: Diagnosis: Dislodged feeding tube replaced Presentation: 04/04 22:42 Chief complaint: EMS states: Pt pulled out his PEG tube. Coronavirus screen: At this jb4 time, the client does not indicate any symptoms associated with coronavirus-19. Ebola Screen: No symptoms or risks identified at this time. Initial Sepsis Screen: Does the patient meet any 2 criteria? No. Patient's initial sepsis screen is negative. Does the patient have a suspected source of infection? No. Patient's initial sepsis screen is negative. Risk Assessment: Do you want to hurt yourself or someone else? Patient reports no desire to harm self or others. Onset of symptoms was April 04, 2022. Transition of care: patient was received from another setting of care (long-term care facility), [facility]. 22:42 Method Of Arrival: EMS: [facility] jb4 22:42 Acuity: ELROY 3 jb4 Historical: - Allergies: 22:43 No Known Allergies; jb4 - Home Meds: 22:43 tylenol [Active]; jb4 - PMHx: 22:43 abnormal liver function; adhd; Anemia; Bipolar disorder; DYSPHAGIA; ENCEPHALOPATHY; jb4 epilepsy; Hypothyroidism; MR; pressure ulcer sacral region; - PSHx: 22:43 G tube; jb4 - Immunization history:: Adult Immunizations up to date. - Social history:: Smoking status: Patient denies any tobacco usage or history of. Screenin/03 02:05 Abuse screen: Denies threats or abuse. Denies injuries from another. Nutritional tw5 screening: Difficulty chewing/swallowing? Yes. Tuberculosis screening: No symptoms or risk factors identified. Fall Risk Secondary diagnosis (15 points) Mental Status- Overestimates/Forgets Limitations (15 pts.). Assessment: 04/04 22:45 General: Appears in no apparent distress. comfortable, Behavior is calm, cooperative. jb4 Pain: Unable to use pain scale. FLACC scale score is 0 out of 10. Neuro: Level of Consciousness is awake, alert, Oriented to none Pt's baseline is reportedly A\T\Ox 0. Cardiovascular: Patient's skin is warm and dry. Respiratory: Airway is patent Respiratory effort is even, unlabored, Respiratory pattern is regular, symmetrical. GI: Stoma is present where G-tube is missing, appear healthy. : No signs and/or symptoms were reported regarding the genitourinary system. EENT: No signs and/or symptoms were reported regarding the EENT system. Derm: Skin is intact, Skin is pink, warm \T\ dry. Musculoskeletal: Circulation, motion, and sensation intact. Range of motion: limited in left elbow, left wrist, right elbow and right wrist. 22:54 Reassessment: Pt's nurse at [facility] reports being unable to get the jb4 prior peg tube size. Reports current peg tube that was remove by pt does not appear to be intact and the ballon on the end is missing. ER Physician made aware. 23:30 Reassessment: Patient appears in no apparent distress at this time. No changes from jb4 previously documented assessment. Patient and/or family updated on plan of care and expected duration. Pain level reassessed. 04/05 00:30 Reassessment: Pt continuously trying to get out of bed, assisted pt back to bed each jb4 time. 01:32 Reassessment: Patient appears in no apparent distress at this time. No changes from jb4 previously documented assessment. Report given to [facility] receiving nurse. Respirations remain even and unlabored with no s/s of pain or distress noted. Vital Signs: 04/04 22:48 BP 141 / 100; Pulse 84; Resp 18; Temp 97.2(A); Pulse Ox 100% on R/A; jb4 23:12 BP 118 / 82; Pulse 80; Resp 16; Pulse Ox 100% on R/A; jb4 04/05 00:30 BP 138 / 104; Pulse 97; Resp 18; Pulse Ox 100% on R/A; jb4 01:32 BP 151 / 92; Pulse 81; Resp 18; Pulse Ox 100% on R/A; jb4 ED Course: 04/04 22:41 Patient arrived in ED. aa9 22:42 Nelson Sosa RN is Primary Nurse. jb4 22:42 Triage completed. jb4 22:43 Arm band placed on right wrist. jb4 22:45 John Subramanian MD is Attending Physician. kdr 04/05 02:05 Fall risk band placed. Placed in gown. Side rails up X2. Seizure precautions initiated. tw 02:05 Sitter at bedside. One-on-one care X 15 minutes. tw5 02:05 Assist provider with bone marrow aspiration. Patient did not have IV access during this 5 emergency room visit. Administered Medications: No medications were administered Medication: 02:05 VIS not applicable for this client. Outcome: 04/04 23:57 Discharge ordered by . kdr 04/05 02:[facility] Report called to [facility] Transfer form tw completed. Condition: stable Discharge instructions given to patient, Instructed on the need for transfer. 02:08 Patient left the ED. Signatures: John Subramanian MD MD kdr Nelson Sosa, RN RN Ruth Muir tw Peyton Ruano, RN RN aa9 Corrections: (The following items were deleted from the chart) 04/04 22:49 22:42 Transition of care: patient was not received from another setting of care. jb4 jb4 22:54 22:42 Acuity: ELROY 4 jb4 jb4 04/05 01:31 10 22:54 Reassessment: Pt's nurse at [facility] reports being unable to jb4 get the prior peg tube size. Reports current peg tube that was remove by pt does not appear to be intact and the ballon on the end is missing. jb4
[2022-04-05 02:13] VITALS: TEMP 97.2; O2SAT 100
[2022-04-05 02:17] VITALS: BP 151/92
--- NOTE | 2022-04-05 13:17 | RAD REPORT ---
EXAM DESCRIPTION: X-ray abdomen 1 view CLINICAL HISTORY: 36 years Male PEG tube placement TECHNIQUE: 3 AP supine x-ray views of the abdomen were performed on 04/05/2022 at 12:30 AM. Comparison: Plain x-ray abdomen report from 03/29/2022. The image was unavailable for review. FINDINGS: A county records management officer image was obtained which revealed a catheter projecting over the left upper quadra nt. The bowel gas pattern is nonspecific and nonobstructive. The lungs are well expanded and are caitlyn sly clear. The cardiac silhouette is normal in size and configuration. No acute osseous abnormalities are identified. 2 subsequent images were obtained following the administration of contrast through the indwelling cat heter. There is partial contrast opacification of the stomach and duodenum. There is no evidence of e xtravasation of contrast. IMPRESSION: The percutaneous gastrostomy catheter appears to be satisfactory in position based on th e images obtained. No extravasation of contrast is identified. Electronically signed by: Barbara Driscoll DO 04/05/2022 1:25 AM CDT Due to temporary technical issues with the PACS/Fluency reporting system, reports are being signed by the in house radiologists without review as a courtesy to insure prompt reporting. The interpreting radiologist is fully responsible for the content of the report.
== END 2022-04-05 02:08 | disposition home or self-care (01) ==
LOC: ER 22:40
DX: Z43.1 Encounter for attention to gastrostomy (principal)
CPT/HCPCS: 74018; 99285

== ENCOUNTER 2022-04-05 15:16 | Emergency (ER) | payer OTHER ==
--- OUTSIDE RECORDS SUMMARY | 2022-04-05 15:30 | XMS REPORT | Continuity of Care Document ---
:1985 Author Organization [facility] t Address [address] [place] [address] Care Team Providers Name Role Phone Asked, No Pcp Primary Care Physician Unavailable WANDA SHUKLA Attending Clinician Unavailable KAMILLE BETTENCOURT Attending Clinician Unavailable [email or web address]_Vishnu Attending Clinician Unavailable Mariela Linares Attending Clinician [phone] Damir Nieves Attending Clinician [phone] Isidoro Kumar Attending Clinician ISIDORO KUMAR Attending Clinician Unavailable ANNIE MOON Attending Clinician Unavailable ARVIND LOWE Attending Clinician Unavailable Arvind Lowe Attending Clinician Chris Vega Attending Clinician MODESTO CLOUD Attending Clinician Unavailable Ai BECKER, Modesto Cruz Attending Clinician [phone] Zain David Attending Clinician Unavailable Molina Hernández MD Attending Clinician Sarai BECKER, Annie Henley Attending Clinician Lion Parry MD, Kym Attending Clinician [phone] Richardson BECKER, Marla Polanco Attending Clinician Rome BECKER, Elida Mendez Attending Clinician Seun Lucero, Malissa Martin Attending Clinician + [phone] ELIDA PETER Attending Clinician Unavailable KYM REA Attending Clinician Unavailable Wanda Shukla Attending Clinician BARRERA ANDERSON Attending Clinician Unavailable Sylvia BECKER, Barrera Siddiqui Attending Clinician [phone] BRII CAMPBELL Attending Clinician Unavailable Brii Campbell [...] Clinician Unavaila MALISSA Telles Admitting Clinician Unavailable NasraHandy Kianna Admitting Clinician Annette Butler Admitting Clinician Vijay Combs Admitting Clinician Payers Payer Name Policy Type Policy Number Effective Date Expiration Date S [place] MEDICAID [id number] 2018 00:00:00 MEDICARE PART A & [id number] 2010 B 00:00:00 [place]: [id number] 2010 DeviceAuthority 00:00:00 [place] [id number] [place] MEDIC[place] A B [id number] 2010 00:00:00 TP14 MAO SSI [id number] 2018 RELATED 00:00:00 Problems Condition Condition Condition [...] Total Total Problem Active [facility] Self-care 8- Medi jonatan deficit Deficit 00:00: 00 Pressure Pressure Problem Active [facility] a injury of Injury of 02-25 Medi jonatan sacral Sacral 00:00: region of Region of 00 back 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 00:00: 00 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 02-25 Me dical ia ia 00:00: 00 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 [...] th adult adult Other Other Disease Active [facility] insomnia insomnia Health Bipolar 1 Bipolar 1 Disease Active [facility] ris disorder disorder Health Elevated Elevated Disease Active [facility] lithium lithium Health level level Anemia Anemia Disease Active [facility] Weight Weight Disease Active [facility] loss loss Health Agitation Agitation Disease Active [facility] ris Health Severe Severe Problem Active [facility] [...] Allergie 01-08 [facility] 00:[facility]: d 00 [facility] No Known DA Active U 2016-07 [facility] Allergie 1-25 [place] [facility] 00:[facility]: d 00 [facility] No Known DA Active U 2016-07 [facility] Allergie -25 [facility] s 00:00: Andre 00 [facility] NO KNOWN Allergy Active [facility] Social History Social Habit Start Date Stop Date Quantity Comments Source History [facility] Food [facility] Worry History SDOH Food 2021-12-23 2021-12-23 1 [facility] Scarcity 00:00:00 00:00:00 Tobacco use and 2021-12-23 2021-12-23 Smokeless tobacco [facility] exposure 00:00:00 00:00:00 non-user Alcohol intake 2021-12-23 2021-12-23 [facility] 00:[facility] 00:00:00 non-drinker (finding) Sex [birth year] Talha jordan 00:00:00 00:00:00 Smoking Status Start Date Stop Date Source Tobacco smoking consumption unknown [facility] Never Smoker [facility] Medical Medications Ordered Filled Start Stop Current Ordering Indication Dosage Frequency Signature Comments Components Source Medication Medication Date Date Medication? Clinician (SIG) Name Name furosemide 2021-0 2022- No 20mg QD Take [...] for 90 days. Start 12/16/21. tamsulosin 2021-2021- No [facility] .4mg QD Take [...] [facility] (FLOMAX) 6-15 09-13 l capsule by [facility] 0.4 mg 00:00: 23:59 disability mouth capsule 00 :00 daily for 90 days. Start 12/16/21. haloperidoL 2021- No [facility] 10mg QD Take 1 [facility] (HALDOL) 10 6-15 09-13 l tablet by He alth mg tablet 00:00: 23:59 disability mouth 00 :00 daily for 90 days. Start 12/16/21. tamsulosin 2021- No [facility] .4mg QD Take 1 [facility] (FLOMAX) 6-15 09-13 l capsule by [facility] 0.4 mg 00:00: 23:59 disability mouth [...] [facility] (FLOMAX) 6-15 09-13 l capsule by [facility] 0.4 mg 00:00: 23:59 disability mouth capsule 00 :00 daily for 90 days. Start 12/16/21. haloperidoL 2021- No [facility] 10mg QD Take 1 [place] (HALDOL) 10 6-15 09-13 l tablet by [facility] alth mg tablet 00:00: 23:59 disability mouth 00 :00 daily for 90 days. Start 12/16/21. tamsulosin 2021- No [facility] .4mg QD Take 1 [facility] (FLOMAX) 6-15 09-13 l capsule by [facility] 0.4 mg 00:00: 23:59 disability mouth capsule 00 :00 daily for 90 days. Start 12/16/21. haloperidoL 2021- No [facility] 10mg QD Take 1 [facility] (HALDOL) 10 6-15 09-13 l tablet by alth mg tablet 00:00: 23:59 disability mouth 00 :00 daily for 90 days. Start 12/16/21. tamsulosin 2021- No [facility] .4mg QD Take 1 [facility] (FLOMAX) 6-15 09-13 l capsule by [facility] 0.4 mg 00:00: 23:59 disability mouth capsule 00 :00 daily for 90 days. Start 12/16/21. haloperidoL 2021- No [facility] 10mg QD Take 1 [place] (HALDOL) 10 6-15 09-13 l tablet by [facility] al[facility] mg tablet 00:00: 23:59 disability mouth 00 :00 daily for 90 days. Start 12/16/21. tamsulosin 2021- No [facility] .4mg QD Take 1 [facility] (FLOMAX) 6-15 09-13 l capsule by [facility] 0.4 mg 00:00: 23:59 disability mouth [...] [place] (FLOMAX) 6-15 09-13 l capsule by [facility] th 0.4 mg 00:00: 23:59 disability mouth capsule 00 :00 daily for 90 days. Start 12/16/21. haloperidoL 2021- No [facility] 10mg QD Take 1 [place] (HALDOL) 10 6-15 09-13 l tablet by He alth mg tablet 00:00: 23:59 disability mouth 00 :00 daily for 90 days. Start 12/16/21. clonazePAM 2021-0 Yes .25mg Take 0.[address] (KlonoPIN) 6-14 [facility]: mouth. Medical tablet 00 [place] clonazePAM 2-0 Yes .25mg Take 0.[address] (KlonoPIN) 6-14 [facility] 0.5 MG 00:00: mouth. Medical tablet 00 [place] clonazePAM 2-0 Yes .25mg Take 0.[address] (KlonoPIN) 6-14 [facility] 0.5 MG 00:00: mouth. Medical tablet 00 [place] clonazePAM 2-0 Yes .25mg Take 0.[address] (KlonoPIN) 6-14 [facility] 0.5 MG 00:00: mouth. Medical tablet 00 [place] clonazePAM 2-0 Yes .25mg Take 0.[address] (KlonoPIN) 6-14 [facility] 0.5 MG 00:00: mouth. Medical tablet 00 [place] clonazePAM 2022-0 Yes .25mg Take 0.25 C [...] tablet 00 mouth 2 times daily sennosides- 2021-0 202- No [facility] 2{tbl} Q.5D Take 2 [place] docusate 6-14 09-12 l tablets by [facility] sodium 00:00: 23:59 disability mouth 2 (SENNA 00 :00 (two) PLUS) times a 8.6-50 mg day for 90 tablet days mirtazapine 2021-0 2021- No [facility] 15mg Take 1 [place] (REMERON) 6-14 09-12 l tablet by [facility] 15 mg 00:00: 23:59 disability mouth at tablet 00 :00 bedtime nightly for 90 days lithium 2021-0 2022- No [facility] 300mg Q.5D Take 1 [place] carbonate 6-14 09-12 l capsule by [facility] (ESKALITH) 00:00: 23:59 disability mouth 2 300 mg 00 :00 (two) capsule times a day for 90 days haloperidoL 2021-0 202- No [facility] 20mg Take 2 [place] (HALDOL) 10 6-14 09-12 l tablets by ealth mg tablet 00:00: 23:59 disability mouth at 00 :00 bedtime nightly for 90 days cloNIDine 2021-0 2021- No [facility] .1mg Take 1 [place] HCL 6-14 09-12 l tablet by [facility] (CATAPRES) 00:00: 23:59 disability mouth 0.1 mg 00 :00 every tablet evening amitriptyli 2021- No [facility] 10mg Take 1 [place] ne (ELAVIL) 6-14 09-12 l tablet by [facility] 10 mg 00:00: 23:59 disability mouth at tablet 00 :00 bedtime nightly sennosides- 2021- No [facility] 2{tbl} Q.5D Take 2 [place] docusate 6-14 09-12 l tablets by [facility] sodium 00:00: 23:59 disability mouth 2 (SENNA 00 :00 (two) PLUS) times a 8.6-50 mg day for 90 tablet days mirtazapine 2021- No [facility] 15mg Take 1 [place] (REMERON) 6-14 09-12 l tablet by [facility] 15 mg 00:00: 23:59 disability mouth at tablet 00 :00 bedtime nightly for 90 days lithium 2021- No [facility] 300mg Q.5D Take 1 [place] carbonate 6-14 09-12 l capsule by [facility] (ESKALITH) 00:00: 23:59 disability mouth 2 300 mg 00 :00 (two) capsule times a day for 90 days haloperidoL 2021- No [facility] 20mg Take 2 [place] (HALDOL) 10 6-14 09-12 l tablets by ealth mg tablet 00:00: 23:59 disability mouth at 00 :00 bedtime nightly for 90 days cloNIDine 2021- No [facility] .1mg Take 1 [place] HCL 6-14 09-12 l tablet by [facility] (CATAPRES) 00:00: 23:59 disability mouth 0.1 mg 00 :00 every tablet evening amitriptyli 2021- No [facility] 10mg Take 1 [place] ne (ELAVIL) 6-14 09-12 l tablet by [facility] 10 mg 00:00: 23:59 disability mouth at tablet 00 :00 bedtime nightly cloNIDine 2021- No .1mg Take 0.[address] [facility] [facility] HCL 6-14 09-12 [facility] (CATAPRES) 00:00: 23:59 mouth. Medi jonatan 0.1 MG 00 :00 Center tablet senna-docus 2021- No 2{tbl} Take [address] ate 6-14 09-12 tablets by [facility] (SENOKOT S) 00:00: 23:59 mouth. Med ical 8.6-50 mg 00 :00 Center per tablet cloNIDine 2-0 2022- No .1mg Take 0.[address] [facility] [facility] HCL 6-14 09-12 mg by [facility] (CATAPRES) 00:00: 23:59 mouth. Medi jonatan 0.1 MG 00 :00 Center tablet senna-docus 2-0 2022- No 2{tbl} Take [address] ate 6-14 09-12 tablets by [facility] (SENOKOT S) 00:00: 23:59 mouth. Med ical 8.6-50 mg 00 :00 Center per tablet cloNIDine 2-0 2022- No .1mg Take 0.1 [...] mg 00 :00 Center per tablet cloNIDine 2-0 2022- No .1mg Take 0.[address] [facility] HCL 6-14 09-12 mg by [facility] (CATAPRES) 00:00: 23:59 mouth. Medi jonatan 0.1 MG 00 :00 Center tablet senna-docus 2-0 2022- No 2{tbl} Take 2 [facility] [...] mg 00 :00 Center per tablet sennosides- 2021-2021- No [facility] 2{tbl} Q.5D Take 2 [place] docusate 6-14 09-12 l tablets by Heal th sodium 00:00: 23:59 disability mouth 2 (SENNA 00 :00 (two) PLUS) times a 8.6-50 mg day for 90 tablet days mirtazapine 2021- No [facility] 15mg Take 1 [place] (REMERON) 6-14 09-12 l tablet by [facility] 15 mg 00:00: 23:59 disability mouth at tablet 00 :00 bedtime nightly for 90 days lithium 2021- No [facility] 300mg Q.5D Take 1 [place] carbonate 6-14 09-12 l capsule by [facility] lt (ESKALITH) 00:00: 23:59 disability mouth 2 300 mg 00 :00 (two) capsule times a day for 90 days haloperidoL 2021- No [facility] 20mg Take 2 [place] (HALDOL) 10 6-14 09-12 l tablets by [facility]alth mg tablet 00:00: 23:59 disability mouth at 00 :00 bedtime nightly for 90 days cloNIDine 2021- No [facility] .1mg Take 1 [place] HCL 6-14 09-12 l tablet by [facility] (CATAPRES) 00:00: 23:59 disability mouth 0.1 mg 00 :00 every tablet evening amitriptyli 2021- No [facility] 10mg Take 1 [place] ne (ELAVIL) 6-14 09-12 l tablet by [facility] 10 mg 00:00: 23:59 disability mouth at tablet 00 :00 bedtime nightly sennosides- 2021- No [facility] 2{tbl} Q.5D Take 2 [place] docusate 6-14 09-12 l tablets by Heal sodium 00:00: 23:59 disability mouth 2 (SENNA 00 :00 (two) PLUS) times a 8.6-50 mg day for 90 tablet days mirtazapine 2021- No [facility] 15mg Take 1 [place] (REMERON) 6-14 09-12 l tablet by [facility] 15 mg 00:00: 23:59 disability mouth at tablet 00 :00 bedtime nightly for 90 days lithium 2021- No [facility] 300mg Q.5D Take 1 [place] carbonate 6-14 09-12 l capsule by [facility] ([facility]) 00:00: 23:59 disability mouth 2 300 mg 00 :00 (two) capsule times a day for 90 days haloperidoL 2021-2021- No [facility] 20mg Take 2 [place] (HALDOL) 10 6-14 09-12 l tablets by H ealth mg tablet 00:00: 23:59 disability mouth at 00 :00 bedtime nightly for 90 days cloNIDine 2021-2021- No [facility] .1mg Take 1 [place] HCL 6-14 09-12 l tablet by [facility] (CATAPRES) 00:00: 23:59 disability mouth 0.1 mg 00 :00 every tablet evening amitriptyli 2021-2021- No [facility] 10mg Take 1 [place] ne (ELAVIL) 6-14 09-12 l tablet by [facility] 10 mg 00:00: 23:59 disability mouth at tablet 00 :00 bedtime nightly sennosides- 2021-2021- No [facility] 2{tbl} Q.5D Take 2 [place] docusate 6-14 09-12 l tablets by [facility] sodium 00:00: 23:59 disability mouth 2 (SENNA 00 :00 (two) PLUS) times a 8.6-50 mg day for 90 tablet days mirtazapine 2021- No [facility] 15mg Take 1 [place] (REMERON) 6-14 09-12 l tablet by [facility] 15 mg 00:00: 23:59 disability mouth at tablet 00 :00 bedtime nightly for 90 days lithium 2021-2021- No [facility] 300mg Q.5D Take 1 [place] carbonate 6-14 09-12 l capsule by [facility] ([facility]) 00:00: 23:59 disability mouth 2 300 mg 00 :00 (two) capsule times a day for 90 days haloperidoL 2021-0 2021- No [facility] 20mg Take 2 [place] (HALDOL) 10 6-14 09-12 l tablets by ealth mg tablet 00:00: 23:59 disability mouth at 00 :00 bedtime nightly for 90 days cloNIDine 2021-2021- No [facility] .1mg Take 1 [place] HCL 6-14 09-12 l tablet by [facility] (CATAPRES) 00:00: 23:59 disability mouth 0.1 [...] [place] (REMERON) 6-14 09-12 l tablet by [facility] 15 mg 00:00: 23:59 disability mouth at tablet 00 :00 bedtime nightly for 90 days lithium 2021-2021- No [facility] 300mg Q.5D Take 1 [place] carbonate 6-14 09-12 l capsule by [facility] (ESKALITH) 00:00: 23:59 disability mouth 2 [...] [place] HCL 6-14 09-12 l tablet by [facility] (CATAPRES) 00:00: 23:59 disability mouth 0.1 mg 00 :00 every tablet evening amitriptyli 2021- No [facility] 10mg Take 1 [place] ne (ELAVIL) 6-14 09-12 l tablet by alth 10 mg 00:00: 23:59 disability mouth at tablet 00 :00 bedtime nightly sennosides- 2021-0 2021- No [facility] 2{tbl} Q.5D Take 2 [place] docusate 6-14 09-12 l tablets by [facility] sodium 00:00: 23:59 disability mouth 2 (SENNA 00 :00 (two) PLUS) times a 8.6-50 mg day for 90 tablet days mirtazapine 2021- No [facility] 15mg Take 1 [place] (REMERON) 6-14 09-12 l tablet by [facility] 15 mg 00:00: 23:59 disability mouth at tablet 00 :00 bedtime nightly for 90 days lithium 2021- No [facility] 300mg Q.5D Take 1 [place] carbonate 6-14 09-12 l capsule by [facility] ([facility]) 00:00: 23:59 disability mouth 2 300 mg 00 :00 (two) capsule times a day for 90 days haloperidoL 2021- No [facility] 20mg Take 2 [place] (HALDOL) 10 6-14 09-12 l tablets by ealth mg tablet 00:00: 23:59 disability mouth at 00 :00 bedtime nightly for 90 days cloNIDine 2021- No [facility] .1mg Take 1 [place] HCL 6-14 09-12 l tablet by [facility] ([facility]) 00:00: 23:59 disability mouth 0.1 mg 00 :00 every tablet evening amitriptyli 2021- No [facility] 10mg Take 1 [place] ne (ELAVIL) 6-14 09-12 l tablet by [facility] 10 mg 00:00: 23:59 disability mouth at tablet 00 :00 bedtime nightly sennosides- 2021- No [facility] 2{tbl} Q.5D Take 2 [place] docusate 6-14 09-12 l tablets by [facility] sodium 00:00: 23:59 disability mouth 2 (SENNA 00 :00 (two) PLUS) times a 8.6-50 mg day for 90 tablet days mirtazapine 2021- No [facility] 15mg Take 1 [place] (REMERON) 6-14 09-12 l tablet by [facility] 15 mg 00:00: 23:59 disability mouth at tablet 00 :00 bedtime nightly for 90 days lithium 2021- No [facility] 300mg Q.5D Take 1 [place] carbonate 6-14 09-12 l capsule by [facility] ([facility]) 00:00: 23:59 disability mouth 2 300 mg 00 :00 (two) capsule times a day for 90 days haloperidoL 2021- No [facility] 20mg Take 2 [place] (HALDOL) 10 6-14 09-12 l tablets by H ealth mg tablet 00:00: 23:59 disability mouth at 00 :00 bedtime nightly for 90 days cloNIDine 2021- No [facility] .1mg Take 1 [place] HCL 6-14 09-12 l tablet by [facility] (CATAPRES) 00:00: 23:59 disability mouth 0.1 [...] [place] (REMERON) 6-14 09-12 l tablet by [facility] 15 mg 00:00: 23:59 disability mouth at tablet 00 :00 bedtime nightly for 90 days lithium 2021- No [facility] 300mg Q.5D Take 1 [place] carbonate 6-14 09-12 [facility]KALI[facility] 00:00: 23:59 disability mouth 2 300 mg 00 :00 (two) capsule times a day for 90 days haloperidoL 2021- No [facility] 20mg Take 2 [place] (HALDOL) 10 6-14 09-12 l tablets by ealth mg tablet 00:00: 23:59 disability mouth at 00 :00 bedtime nightly for 90 days cloNIDine 2021- No [facility] .1mg Take 1 [place] HCL 6-14 09-12 l tablet by [facility] (CATAPRES) 00:00: 23:59 disability mouth 0.1 mg 00 :00 every tablet evening amitriptyli 2021- No [facility] 10mg Take 1 [place] [facility] (ELAVIL) 6-14 09-12 l tablet by [facility] 10 mg 00:00: 23:59 disability mouth at tablet 00 :00 bedtime nightly sennosides- 2021-0 2021- No [facility] 2{tbl} Q.5D Take 2 [place] docusate 6-14 09-12 l tablets by [facility] sodium 00:00: 23:59 disability mouth 2 (SENNA 00 :00 (two) PLUS) times a 8.6-50 mg day for 90 tablet days mirtazapine 2021- No [facility] 15mg Take 1 [place] (REMERON) 6-14 09-12 l tablet by [facility] 15 mg 00:00: 23:59 disability mouth at tablet 00 :00 bedtime nightly for 90 days lithium 2021-2021- No [facility] 300mg Q.5D Take 1 [place] carbonate 6-14 09-12 l capsule by [facility] ([facility]) 00:00: 23:59 disability mouth 2 300 mg 00 :00 (two) capsule times a day for 90 days haloperidoL 2021-2021- No [facility] 20mg Take 2 [place] (HALDOL) 10 6-14 09-12 l tablets by [facility]alth mg tablet 00:00: 23:59 disability mouth at 00 :00 bedtime nightly for 90 days cloNIDine 2021-2021- No [facility] .1mg Take 1 [place] HCL 6-14 09-12 l tablet by [facility] (CATAPR) 00:00: 23:59 disability mouth 0.1 mg 00 :00 every tablet evening amitriptyli 2021-2021- No [facility] 10mg Take 1 [place] [facility] (ELAVIL) 6-14 09-12 l tablet by [facility] 10 mg 00:00: 23:59 disability mouth at tablet 00 :00 bedtime nightly sennosides- 2021-0 2021- No [facility] 2{tbl} Q.5D Take 2 [place] docusate 6-14 09-12 l tablets by [facility] sodium 00:00: 23:59 disability mouth 2 (SENNA 00 :00 (two) PLUS) times a 8.6-50 mg day for 90 tablet days mirtazapine 2021-0 2021- No [facility] 15mg Take 1 [place] (REMERON) 6-14 09-12 l tablet by [facility] 15 mg 00:00: 23:59 disability mouth at tablet 00 :00 bedtime nightly for 90 days lithium 2021-2021- No [facility] 300mg Q.5D Take 1 [place] carbonate 6-14 09-12 l capsule by [facility] (ESKALITH) 00:00: 23:59 disability mouth 2 300 mg 00 :00 (two) capsule times a day for 90 days haloperidoL 2021-2021- No [facility] 20mg Take 2 [place] (HALDOL) 10 6-14 09-12 l tablets by [facility] mg tablet 00:00: 23:59 disability mouth at 00 :00 bedtime nightly for 90 days cloNIDine 2021-2021- No [facility] .1mg Take 1 [place] HCL 6-14 09-12 l tablet by [facility] (CATAPRES) 00:00: 23:59 disability mouth 0.1 mg 00 :00 every tablet evening amitriptyli 2021- No [facility] 10mg Take 1 [place] [facility] (ELAVIL) 6-14 09-12 l tablet by [facility] 10 mg 00:00: 23:59 disability mouth at tablet 00 :00 bedtime nightly sucralfate 2021-0 Yes 1g Q.25D Take 1 [...] Center daily. lithium 300 2022-0 Yes 300mg Q.[id number] Take [address] [facility] MG capsule 5-27 [id number] mg by Amalia kes 00:00: 3D mouth 3 Medical 00 (three) Center times daily. lithium 300 2022-0 Yes 300mg Q.[id number] Take [address] MG capsule 5-27 [id number] mg by Amalia kes 00:00: 3D mouth 3 Medical 00 (three) Center times daily. lithium 300 2022-0 Yes 300mg Q.[id number] Take [address] MG capsule 5-27 [id number] mg by Amalia kes 00:00: 3D mouth 3 Medical 00 (three) Center times daily. lithium 300 2022-0 Yes 300mg Q.[id number] Take [address] MG capsule 5-27 [id number] mg by Amalia kes 00:00: 3D mouth 3 Medical 00 (three) Center times daily. lithium 300 2022-0 Yes 300mg Q.[id number] Take [address] MG capsule 5-27 [id number] mg by Amalia kes 00:00: 3D mouth 3 Medical 00 (three) Center times daily. lithium 300 2022-0 Yes 300mg Q.[id number] Take [address] MG capsule 5-27 [id number] mg by Amalia kes 00:00: 3D mouth 3 Medical 00 (three) Center times daily. lithium 300 2022-0 Yes 300mg Q.[id number] Take [address] MG capsule 5-27 [id number] mg by Amalia kes 00:00: 3D mouth 3 Medical 00 (three) Center times daily. lithium 300 2021-0 Yes 300mg Q.[id number] Take [address] MG capsule 5-27 [id number] mg by Amalia kes 00:00: 3D mouth 3 Medical 00 (three) Center times daily. lithium 300 2021-0 Yes 300mg Q.[id number] Take [address] MG capsule 5-27 [id number] mg by Amalia kes 00:00: 3D mouth 3 Medical 00 (three) Center times daily. mirtazapine 0 Yes 15mg QD Take [address] [facility] (REMERON) 5-25 by [facility] 15 MG 16:23: nightly. Medical tablet 12 [place] OLANZapine 0 Yes 10mg QD Take [address] (ZYPREXA) 5-25 by mouth [facility] 10 MG 16:23: nightly. Medical tablet 12 [place] primidone 0 Yes 50mg Q.25D Take [address] (MYSOLINE) 5-25 by mouth 4 Chrissie es 50 MG 16:23: (four) Medical tablet 12 times Center daily. propranoloL 0 Yes 40mg Q.[id number] Take [address] [facility] [facility] (INDERAL) 5-25 [id number] by mouth 3 [facility] 40 MG 16:23: 3D (three) Medical tablet 12 times Center daily. traZODone 0 Yes 100mg QD Take [address] (DESYREL) 5-25 mg by [facility] 100 MG 16:23: mouth Medical tablet 12 nightly. [place] amitriptyli 0 Yes 10mg QD Take [address] [facility] ne (ELAVIL) 5-25 by mouth [facility] 10 MG 16:23: nightly. Medical tablet 12 [place] benztropine 0 Yes 2mg Q.5D Take 2 [...] times Center daily. propranoloL 2021-0 Yes 40mg Q.[id number] Take [address] [facility] [facility] (INDERAL) 5-25 [id number] by mouth 3 [facility] 40 MG 16:23: 3D (three) Medical tablet 12 times Center daily. traZODone 2021-0 Yes 100mg QD Take [address] (DESYREL) 5-25 mg by [facility] 100 MG 16:23: mouth Medical tablet 12 nightly. [place] amitriptyli 2021-0 Yes 10mg QD Take 10 [...] 15 MG 16:23: nightly. Medical tablet 12 [place] OLANZapine 2021-0 Yes 10mg QD Take [address] (ZYPREXA) 5-25 by mouth [facility] 10 MG 16:23: nightly. Medical tablet 12 [place] primidone 2021-0 Yes 50mg Q.25D Take [address] (MYSOLINE) 5-25 by mouth 4 Chrissie es 50 MG 16:23: (four) Medical tablet 12 times Center daily. propranoloL 2021-0 Yes 40mg Q.[id number] Take [address] [facility] (INDERAL) 5-25 [id number] by mouth 3 [facility] 40 MG 16:23: 3D (three) Medical tablet 12 times Center daily. traZODone 2021-0 Yes 100mg QD Take [address] (DESYREL) 5-25 mg by [facility] 100 MG 16:23: mouth Medical tablet 12 nightly. [place] amitriptyli 0 Yes 10mg QD Take [address] ne (ELAVIL) 5-25 by mouth Luke [facility] 10 MG 16:23: nightly. Medical tablet 12 [place] benztropine 2021-0 Yes 2mg Q.5D Take 2 [...] 15 MG 16:23: nightly. Medical tablet 12 [place] OLANZapine 2021-0 Yes 10mg QD Take [address] (ZYPREXA) 5-25 by mouth [facility] 10 MG 16:23: nightly. Medical tablet 12 [place] primidone 2021-0 Yes 50mg Q.25D Take [address] (MYSOLINE) 5-25 by mouth 4 Chrissie es 50 MG 16:23: (four) Medical tablet 12 times Center daily. propranoloL 202-0 Yes 40mg Q.[id number] Take [address] [facility] [facility] (INDERAL) 5-25 [id number] by mouth 3 [facility] 40 MG 16:23: [...] times Center daily. propranoloL 2-0 Yes 40mg Q.[id number] Take [address] [facility] (INDERAL) 5-25 [id number] by mouth 3 [facility] 40 MG 16:23: 3D (three) Medical tablet 12 times Center daily. traZODone 0 Yes 100mg QD Take [address] (DESYREL) 5-25 mg by [facility] 100 MG 16:23: mouth Medical tablet 12 nightly. [place] amitriptyli 0 Yes 10mg QD Take [address] [facility] (ELAVIL) 5-25 by mouth [facility] 10 MG 16:23: nightly. Medical tablet 12 [place] benztropine 0 Yes 2mg Q.5D Take 2 [...] 15 MG 16:23: nightly. Medical tablet 12 [place] OLANZapine 0 Yes 10mg QD Take [address] (ZYPREXA) 5-25 [facility] 10 MG 16:23: nightly. Medical tablet 12 [place] primidone 0 Yes 50mg Q.25D Take [address] (MYSOLINE) 5-25 by mouth 4 Chrissie es 50 MG 16:23: (four) Medical tablet 12 times Center daily. propranoloL 0 Yes 40mg Q.[id number] Take [address] [facility] (INDERAL) 5-25 [id number] by mouth 3 [facility] 40 MG 16:23: 3D (three) Medical tablet 12 times Center daily. traZODone 0 Yes 100mg QD Take [address] [facility] (DESYREL) 5-25 mg by [facility] 100 MG 16:23: mouth Medical tablet 12 nightly. [place] amitriptyli 2022-0 Yes 10mg QD Take [address] [facility] (ELAVIL) 5-25 by mouth [facility] 10 MG 16:23: nightly. Medical tablet 12 [place] benztropine 2021-0 Yes 2mg Q.5D Take 2 [...] 15 MG 16:23: nightly. Medical tablet 12 [place] OLANZapine 2021-0 Yes 10mg QD Take [address] (ZYPREXA) 5-25 by mouth [facility] 10 MG 16:23: nightly. Medical tablet 12 [place] primidone 2021-0 Yes 50mg Q.25D Take [address] (MYSOLINE) 5-25 by mouth 4 Chrissie es 50 MG 16:23: (four) Medical tablet 12 times Center daily. propranoloL 2021-0 Yes 40mg Q.[id number] Take [address] [facility] (INDERAL) 5-25 [id number] by mouth 3 [facility] 40 MG 16:23: 3D (three) Medical tablet 12 times Center daily. traZODone 2021-0 Yes 100mg QD Take [address] [facility] [address] (DESYREL) 5-25 mg by [facility] 100 MG 16:23: mouth Medical tablet 12 nightly. [place] amitriptyli 2021-0 Yes 10mg QD Take [address] [facility] (ELAVIL) 5-25 by mouth [facility] 10 MG 16:23: nightly. Medical tablet 12 [place] benztropine 2021-0 Yes 2mg Q.5D Take 2 [...] 10 MG 16:23: nightly. Medical tablet 12 [place] primidone 2021-0 Yes 50mg Q.25D Take [address] (MYSOLINE) 5-25 by mouth 4 Chrissie es 50 MG 16:23: (four) Medical tablet 12 times Center daily. propranoloL 2021-0 Yes 40mg Q.[id number] Take [address] [facility] (INDERAL) 5-25 [id number] by mouth 3 [facility] 40 MG 16:23: 3D (three) Medical tablet 12 times Center daily. traZODone 2021-0 Yes 100mg QD Take [address] [facility] [address] (DESYREL) 5-25 mg by [facility] 100 MG 16:23: mouth Medical tablet 12 nightly. [place] amitriptyli 2021-0 Yes 10mg QD Take 10 [...] times Center daily. propranoloL 0 Yes 40mg Q.[id number] Take [address] [facility] (INDERAL) 5-25 [id number] by mouth 3 [facility] 40 MG 16:23: 3D (three) Medical tablet 12 times Center daily. traZODone 0 Yes 100mg QD Take [address] [facility] [address] (DESYREL) 5-25 mg by [facility] 100 MG 16:23: mouth Medical tablet 12 nightly. [place] amitriptyli 0 Yes 10mg QD Take 10 [...] l 12 times Center daily. polyethylen 2021-0 2022- No 17g QD Take [address] [facility] glycol 07-30 by mouth [facility] (GLYCOLAX) 00:00: 23:59 daily for M edical 17 00 :00 5 days. Center gram/dose powder polyethylen 2-0 2022- No 17g QD Take [address] [facility] glycol 07-30- by mouth [facility] (GLYCOLAX) 00:00: 23:59 daily for M edical 17 00 :00 5 days. Center gram/dose powder polyethylen 2-0 2022- No 17g QD Take [address] [facility] glycol 07-30- by mouth [facility] (GLYCOLAX) 00:00: 23:59 daily for M edical 17 00 :00 5 days. Center gram/dose powder polyethylen 2-0 2022- No 17g QD Take [address] [facility] glycol 07-30 by mouth [facility] (GLYCOLAX) 00:00: 23:59 daily for M edical 17 00 :00 5 days. Center gram/dose powder polyethylen 2-0 2022- No 17g QD Take [address] [facility] glycol 07-30- by mouth [facility] (GLYCOLAX) 00:00: 23:59 daily for M edical 17 00 :00 5 days. Center gram/dose powder polyethylen 2-0 2022- No 17g QD Take [address] [facility] glycol 07-30- by mouth [facility] (GLYCOLAX) 00:00: 23:59 daily for M edical 17 00 :00 5 days. Center gram/dose powder polyethylen 2-0 2022- No 17g QD Take [address] [facility] glycol 07-30- by mouth [facility] (GLYCOLAX) 00:00: 23:59 daily for M edical 17 00 :00 5 days. Center gram/dose powder polyethylen 2022-0 2022- No 17g QD Take [address] [facility] glycol 07-30- by mouth [facility] (GLYCOLAX) 00:00: 23:59 daily for M edical 17 00 :00 5 days. Center gram/dose powder polyethylen 2022-0 2022- No 17g QD Take 17 g [...] Weight 2022-03-23 00:00:00 1520 [oz_av] [facility] Polanco [facility] BP Diastolic 2022-03-22 00:00:00 55 mm[Hg] [facility] Height 2022-03-22 00:00:00 70 [in_i] [facility] Polanco edical BMI (Body Mass Index) 2022-03-22 00:00:00 13.4 kg/m2 [facility] BP Systolic 2022-03-22 00:00:00 104 mm[Hg] [facility] Body Weight 2022-03-22 00:00:00 1492 [oz_av] [facility] BP Diastolic 2022-03-16 00:00:00 68 mm[Hg] [facility] Height 2022-03-16 00:00:00 70 [in_i] [...] kg Systolic blood 2022-01-12 17:37:00 114 mm[Hg] [facility] Diastolic blood 2022-01-12 17:37:00 74 mm[Hg] [facility] Heart rate 2022-01-12 17:37:00 60 /min [facility] Respiratory rate 2022-01-12 17:37:00 16 /min [facility] Oxygen saturation in 2022-01-12 17:37:00 98 /min [facility] Arterial blood by Medical Ce nter Pulse oximetry Body temperature 2022-01-12 15:34:00 36.67 Darling [facility] Body height 2022-01-12 15:34:00 162.6 cm [facility] Body weight 2022-01-12 15:34:00 54.432 kg [facility] BMI 2022-01-12 15:34:00 20.60 kg/m2 [facility] Systolic blood 2021-12-23 11:21:00 89 mm[Hg] [facility] pressure Diastolic blood 2021-12-23 11:21:00 56 mm[Hg] [facility] 2021-12-23 11:21:00 64 /min [facility] Respiratory rate 2021-12-23 11:21:00 18 /min Al[facility] Body height 2021-12-23 11:21:00 167.6 cm [facility] Body weight 2021-12-23 11:21:00 51.71 kg [facility] BMI 2021-12-23 11:21:00 18.40 kg/m2 [facility] Body temperature 2021-12-16 11:10:[address] [facility] Oxygen saturation in 2021-12-16 11:10:00 97 /min [facility] Arterial blood by Pulse oximetry Systolic blood 2021-07-30 18:40:00 102 mm[Hg] [facility] Diastolic blood 2021-07-30 18:40:00 60 mm[Hg] [facility] Heart rate 2021-07-30 18:40:00 56 /min [facility] Body temperature 2021-07-30 18:40:00 36.61 Darling [facility] Respiratory rate 2021-07-30 18:40:00 20 /min [facility] Body height 2021-07-30 18:40:00 177.8 cm [facility] Body weight 2021-07-30 18:40:00 54.1 kg [facility] BMI 2021-07-30 18:40:00 17.11 kg/m2 [facility] Oxygen saturation in 2021-07-30 18:40:00 100 /min [facility] Arterial blood by Medical Ce nter Pulse oximetry Procedures Procedure Date / Time Performed Performing Clinician Manolo moses CBC W/PLT COUNT & AUTO 2022-01-12 16:35:[address] [place] [address] [facility] DIFFERENTIAL [facility] COMPREHENSIVE METABOLIC 2022-01-12 16:35:[address] [facility] PANEL [facility] B-TYPE NATRIURETIC FACTOR 2022-01-12 16:35:[address] [facility] CBC W/PLT COUNT & AUTO 2022-01-12 16:35:[address] [facility] DIFFERENTIAL [facility] CBC (WITHOUT 2021-12-23 12:16:00 Annie Moon ealth DIFFERENTIAL) COMPREHENSIVE METABOLIC 2021-12-23 12:16:00 Annie Moon [facility] PANEL HGB/HCT 2021-12-15 15:09:00 Ruthy Matthews a lth XRAY MODIFIED BARIUM 2021-12-15 11:40:00 Ruthy Matthews [facility] SWALLOW W CINE/VIDEO (MBS) GLUCOSE POC 2021-12-15 10:53:00 Elida Peter LIVER PROFILE 2021-12-15 04:50:00 MutTalha ray h Malissa P BASIC METABOLIC PANEL 2021-12-15 04:50:00 MutucTalha cisneros [facility] Malissa P CBC/DIFF 2021-12-15 04:50:00 MutucumarTalha tapia h [place] P CBC 2021-12-15 04:50:00 Mutucumarwillie, Talha Abreu h [place] P DIFFERENTIAL, MANUAL-WAM 2021-12-15 04:50:00 Mutucumarana, [facility] Malissa P XRAY CHEST 1 VIEW 2021-12-14 14:06:00 Ruthy Matthews ealth 12 LEAD EKG 2021-12-14 14:05:[address] [facility] GLUCOSE POC 2021-12-14 14:00:00 Elida Peter [facility] PT/INR/PTT 2021-12-14 13:44:00 QuijanoTera wilson h [place] PRO 2021-12-14 13:44:00 QuijanoTera wilson alth COAG STUDIES INTERP 2021-12-14 13:44:00 [facility] CONSULT CLINICAL CASE 2021-12-14 12:14:27 Seun [facility] MANAGEMENT (RN/SW) Malissa P CBC/DIFF 2021-12-14 09:43:00 Compa Matthewsyoseftaniya [facility] lt CBC 2021-12-14 09:43:[address] [facility] DIFFERENTIAL, MANUAL-[facility] 2021-12-14 09:43:00 Ruthy [facility] LITHIUM 2021-12-14 08:35:00 Compa Matthewsyoseftaniya [facility] lt LIVER PROFILE 2021-12-14 04:28:00 [facility] [place] BASIC METABOLIC PANEL 2021-12-14 04:28:00 Mutucumarana, [facility] Malissa P CBC/DIFF 2021-12-14 04:28:00 Mutucumarwillie, [facility] h Malissa P CBC 2021-12-14 04:28:00 Mutucumarwillie, [facility] h Malissa P RBC MORPHOLOGY-[facility] 2021-12-14 04:28:00 Mutucumarwillie, [facility] alth Malissa P LITHIUM 2021-12-13 21:15:00 Mutucumarwillie, [facility] h Malissa P COMMODE AT BEDSIDE 2021-12-13 08:17:33 [facility] 2021-12-13 04:53:00 Mutucumarwillie, [facility] h Malissa P BASIC METABOLIC PANEL 2021-12-13 04:53:00 Mutucumarana, [facility] Malissa P CBC/DIFF 2021-12-13 04:53:00 [facility] 2021-12-13 04:53:00 [facility], [facility] [place] [facility] LIVER PROFILE 2021-12-12 04:26:00 [facility]ana, [facility] [place] P SEQUENTIAL COMPRESSION 2021-12-12 00:42:25 Elida Peter [facility] PUMP CBC/DIFF 2021-12-11 04:51:00 [facility], [facility] [place] [facility] BASIC METABOLIC PANEL 2021-12-11 04:51:00 Mutucumarana, [facility] Malissa P LIVER PROFILE 2021-12-11 04:51:00 [facility], [facility] [place] CBC 2021-12-11 04:51:00 Mutucumarana, [facility] h Malissa P RETIC COUNT 2021-12-11 04:51:00 [facility]era [facility] U/S ABDOMEN LIMITED 2021-12-10 08:50:00 Ruthy Matthews [facility] CBC/DIFF 2021-12-10 05:32:00 Mutucumarana, [facility] h Malissa P BASIC METABOLIC PANEL 2021-12-10 05:32:00 Mutucumarana, [facility] Malissa P LIVER PROFILE 2021-12-10 05:32:00 Mutucumarana, [facility] h Malissa P CBC 2021-12-10 05:32:00 Mutucumarana, [facility] h Malissa P CT FEMUR W CONTRAST 2021-12-09 16:25:48 Ruthy Matthews [facility] CBC/DIFF 2021-12-09 04:35:00 Mutucumarana, [facility] h Malissa P BASIC METABOLIC PANEL 2021-12-09 04:35:00 Mutucumarana, [facility] Malissa P LIVER PROFILE 2021-12-09 04:35:00 [facility] CBC 2021-12-09 04:35:00 Mutucumarana, [facility] h Malissa P VIT D, 25-HYDROXY 2021-12-09 04:35:00 Ruthy Matthews [facility] ealth COMMODE AT BEDSIDE 2021-12-08 21:45:09 Elida Peter [facility] CBC/DIFF 2021-12-08 05:03:00 Mutucumarwillie, [facility] h Malissa P BASIC METABOLIC PANEL 2021-12-08 05:03:00 Mutucumarwillie, [facility] Malissa P LIVER PROFILE 2021-12-08 05:03:00 Mutucumarwillie, [facility] Malissa P CBC 2021-12-08 05:03:00 Mutucumarana, [facility] Malissa P INFUSION PUMP 2021-12-07 18:01:36 Elida Peter [facility] CBC/DIFF 2021-12-07 05:21:[address] [facility] BASIC METABOLIC PANEL 2021-12-07 05:21:00 Ruthy Matthews [facility] LIVER PROFILE 2021-12-07 05:21:00 Elida Peter [facility] LACTATE DEHYDROGENASE 2021-12-07 05:21:00 Elida Peter [facility] HAPTOGLOBIN 2021-12-07 05:21:00 Elida Peter [facility] AMMONIA 2021-12-07 05:21:00 Elida Peter [facility] CBC 2021-12-07 05:21:[address] [facility] PT/INR/PTT 2021-12-06 05:02:[address] [facility] CT ABDOMEN AND PELVIS 2021-12-05 16:10:[address] [facility]ST W CONTRAST 2021-12-05 16:10:17 Micahel Giraldo [facility] PATHOLOGIST REVIEW 2021-12-05 04:08:00 Tera Quijano [facility] SAVE SMEAR/ NOT FOR PATH 2021-12-05 04:08:[address] [facility] REVIEW LEAD, WHOLE BLOOD (ADULT) 2021-12-04 11:14:00 Byron [facility] DIRECT ANTIGLOBULIN TEST 2021-12-04 10:15:00 [facility] DIRECT MARINA Malissa Martin HIV AG/AB COMBO ROUTINE 2021-12-04 10:15:00 Seun [facility] SCREENING [place]issa Martin HEPATITIS PANEL 2021-12-04 10:15:00 Talha Kohli P HEMOGLOBIN A1C 2021-12-04 04:06:00 Talha Kohli [facility] Malissa P LACTATE DEHYDROGENASE 2021-12-04 04:06:00 Seun [facility] ([facility] Malissa P CBC/DIFF 2021-12-04 04:06:[address] [facility] BASIC METABOLIC PANEL 2021-12-04 04:06:00 Compa Matthewschristijerome [facility] CBC 2021-12-04 04:06:[address] [facility] RETIC COUNT 2021-12-04 04:06:00 Talha Kohli [place]issa Martin SAVE SMEAR/ NOT FOR PATH 2021-12-04 04:06:[address] [facility] REVIEW [place]issa Martin FREE T4 2021-12-04 04:06:[address] [facility] URINALYSIS W/REFLEX TO 2021-12-03 16:54:00 Seun [facility] URINE CULTURE [place]issa Martin URINALYSIS 2021-12-03 16:54:00 Talha Kohli Malissa Martin URINE CULTURE COLLECTION 2021-12-03 16:54:[address] [facility] KIT Malissa P NUTRITION CONSULT 2021-12-03 07:40:[address] [facility] ASSESSMENT Malissa P IRON PROFILE 2021-12-03 04:44:00 Talha Kohliine P CBC/DIFF 2021-12-03 04:44:00 Talha Kohlimaine P CBC 2021-12-03 04:44:00 Talha Kohli P THYROID STIMULATING 2021-12-03 04:44:00 Talha Kohli ealt HORMONE (TSH) [place]issa P VITAMIN B12 2021-12-03 04:44:00 Nateucamelia, [facility] Malissa P FOLIC ACID 2021-12-03 04:44:00 [facility] FREE T4 2021-12-03 04:44:00 Nate[facility]oseamelia, [facility] HAPTOGLOBIN 2021-12-03 04:44:00 Nateucumarwillie, [facility] Malissa P SAVE SMEAR/ NOT FOR PATH 2021-12-03 04:44:00 [facility] REVIEW Malissa P SEQUENTIAL COMPRESSION 2021-12-03 03:19:55 [facility] PUMP Malissa P SARS-COV-2, FLU A/B, RSV 2021-12-03 01:06:00 Pan [facility] CORONAVIRUS, COVID-19, 2021-12-03 01:06:00 Pan [facility] YOSHI CREATININE POC 2021-12-02 20:31:00 Lion Parry [facility] Kym BMP POC 2021-12-02 20:31:00 Lion Parry [facility] Kym CBC/DIFF 2021-12-02 20:17:00 Marino Crooks [facility] CBC 2021-12-02 20:17:00 Marino Crooks [facility] LITHIUM 2021-12-02 20:17:00 Moe Sim [facility] COMPREHENSIVE METABOLIC 2021-12-02 20:17:00 Seun, [facility] PANEL Malissa P FERRITIN 2021-12-02 20:17:00 Seun [facility] Malissa P CT HEAD W/O CONTRAST 2021-12-02 18:26:07 Judith Perla [facility] CT ABDOMEN/PELVIS WITH IV 2021-07-30 20:25:00 Adrian Brii Trejoadin [facility] CBC W/PLT COUNT & AUTO 2021-07-30 19:37:00 [place] Janet [facility] BASIC METABOLIC PANEL (7) 2021-07-30 19:37:00 Brii Campbell [facility] PROTHROMBIN TIME/INR 2021-07-30 19:37:00 rBii [facility] CBC W/PLT COUNT & AUTO 2021-07-30 19:37:00 Brii Campbell [facility] Plan of Care Planned Activity Planned Date Details Comments Source Future Scheduled Test 2025-07-17 DTAP/TDAP/TD [facility] 00:00:00 VACCINES (2 - Td or Medical Center Tdap) [code = DTAP/TDAP/TD VACCINES (2 - Td or Tdap)] Future Scheduled Test 2025-07-17 DTAP/TDAP/TD [facility] 00:00:00 VACCINES (2 - Td or Medical Center Tdap) [code = DTAP/TDAP/TD VACCINES (2 - Td or Tdap)] Future Scheduled Test 2025-07-17 DTAP/TDAP/TD [facility] 00:00:00 VACCINES (2 - Td or Medical Center Tdap) [code = DTAP/TDAP/TD VACCINES (2 - Td or Tdap)] Future Scheduled Test 2025-07-17 DTAP/TDAP/TD [facility] 00:00:00 VACCINES (2 - Td or Medical Center Tdap) [code = DTAP/TDAP/TD VACCINES (2 - Td or Tdap)] Future Scheduled Test 2025-07-17 DTAP/TDAP/TD [facility] 00:00:00 VACCINES (2 - Td or Medical Center Tdap) [code = DTAP/TDAP/TD VACCINES (2 - Td or Tdap)] Future Scheduled Test 2025-07-17 DTAP/TDAP/TD [facility] 00:00:00 VACCINES (2 - Td or Medical Center Tdap) [code = DTAP/TDAP/TD VACCINES (2 - Td or Tdap)] Future Scheduled Test 2025-07-17 DTAP/TDAP/TD [facility] 00:00:00 VACCINES (2 - Td or Medical Center Tdap) [code = DTAP/TDAP/TD VACCINES (2 - Td or Tdap)] Future Scheduled Test 2025-07-17 DTAP/TDAP/TD [facility] 00:00:00 VACCINES (2 - Td or [...] yrs)] Future Scheduled Test 2022-04-03 IMM Influenza [facility] 00:00:00 Seasonal (>/= 19 yrs) [code = [...] (#1)] Future Scheduled Test 2022-03-03 INFLUENZA VACCINE [facility] 12:27:23 [code = INFLUENZA VACCINE] Future Scheduled Test 2022-03-03 HEPATITIS B VACCINES [facility] 12:27:23 (1 of 3 - 3-dose series) [code = HEPATITIS B VACCINES (1 of 3 - 3-dose series)] Future Scheduled Test 2022-03-03 COVID-[address] [facility] 12:27:23 (#1) [code = COVID-19 VACCINE (#1)] Future Scheduled Test 2022-03-03 INFLUENZA VACCINE [facility] 12:27:23 [code = INFLUENZA VACCINE] Future Scheduled Test 2022-03-03 HEPATITIS B VACCINES [facility] 12:27:23 (1 of 3 - 3-dose series) [code = HEPATITIS B VACCINES (1 of 3 - 3-dose series)] Future Scheduled Test 2022-03-03 HEPATITIS B VACCINES [facility] 12:27:23 (1 of 3 - 3-dose series) [code = HEPATITIS B VACCINES (1 of 3 - 3-dose series)] Future Scheduled Test 2022-03-03 COVID-[address] [facility] 12:27:23 (#1) [code = COVID-19 VACCINE (#1)] Future Scheduled Test 2022-03-03 INFLUENZA VACCINE [facility] 12:27:23 [code = INFLUENZA VACCINE] Future Scheduled Test 2022-03-03 COVID-[address] [facility] 12:27:23 (#1) [code = COVID-19 VACCINE (#1)] Future Scheduled Test 2022-03-03 INFLUENZA VACCINE [facility] 12:27:23 [code = INFLUENZA VACCINE] Future Scheduled Test 2022-03-03 HEPATITIS B VACCINES [facility] 12:27:23 (1 of 3 - 3-dose series) [code = HEPATITIS B VACCINES (1 of 3 - 3-dose series)] Future Scheduled Test 2022-03-03 COVID-[address] [facility] 12:27:23 (#1) [code = COVID-19 VACCINE (#1)] Future Scheduled Test 2022-03-03 INFLUENZA VACCINE [facility] 12:27:23 [code = INFLUENZA VACCINE] Future Scheduled Test 2022-03-03 HEPATITIS B VACCINES [facility] 12:27:23 (1 of 3 - 3-dose series) [code = HEPATITIS B VACCINES (1 of 3 - 3-dose series)] Future Scheduled Test 2022-03-03 HEPATITIS B VACCINES [facility] 12:27:23 (1 of 3 - 3-dose series) [code = HEPATITIS B VACCINES (1 of 3 - 3-dose series)] Future Scheduled Test 2022-03-03 COVID-[address] [facility] 12:27:23 (#1) [code = COVID-19 VACCINE (#1)] Future Scheduled Test 2022-03-03 INFLUENZA VACCINE [facility] 12:27:23 [code = INFLUENZA VACCINE] Future Scheduled Test 2022-03-03 HEPATITIS B VACCINES [facility] 12:27:23 (1 of 3 - 3-dose series) [code = HEPATITIS B VACCINES (1 of 3 - 3-dose series)] Future Scheduled Test 2022-03-03 COVID-[address] [facility] 12:27:23 (#1) [code = COVID-19 VACCINE (#1)] Future Scheduled Test 2022-03-03 INFLUENZA VACCINE [facility] 12:27:23 [code = INFLUENZA VACCINE] Future Scheduled Test 2022-03-03 COVID-[address] [facility] 12:27:23 (#1) [code = COVID-19 VACCINE (#1)] Future Scheduled Test 2022-03-03 INFLUENZA VACCINE [facility] 12:27:23 [code = INFLUENZA VACCINE] Future Scheduled Test 2022-03-03 HEPATITIS B VACCINES [facility] 12:27:23 (1 of 3 - 3-dose series) [code = HEPATITIS B VACCINES (1 of 3 - 3-dose series)] Future Scheduled Test 2022-03-03 COVID-[address] [facility] 12:27:23 (#1) [code = COVID-19 VACCINE (#1)] Future Scheduled Test 2022-03-03 INFLUENZA VACCINE [facility] 12:27:23 [code = INFLUENZA VACCINE] Future Scheduled Test 2022-03-03 HEPATITIS B VACCINES [facility] 12:27:23 (1 of 3 - 3-dose series) [code = HEPATITIS B VACCINES (1 of 3 - 3-dose series)] Future Scheduled Test 2022-03-03 COVID-[address] [facility] 12:27:23 (#1) [code = COVID-19 VACCINE (#1)] Future Scheduled Test 2022-02-19 COVID-[address] [facility] 10:27:57 (#1) [code = COVID-19 VACCINE (#1)] Future Scheduled Test 2022-02-19 INFLUENZA VACCINE [facility] 10:27:57 [code = INFLUENZA VACCINE] Future Scheduled Test 2022-02-19 HEPATITIS B VACCINES [facility] 10:27:57 (1 of 3 - 3-dose series) [code = HEPATITIS B VACCINES (1 of 3 - 3-dose series)] Future Scheduled Test 2022-02-19 COVID-[address] [facility] 10:27:57 (#1) [code = COVID-19 VACCINE (#1)] Future Scheduled Test 2022-02-19 INFLUENZA VACCINE [facility] 10:27:57 [code = INFLUENZA VACCINE] Future Scheduled Test 2022-02-19 HEPATITIS B VACCINES [facility] 10:27:57 (1 of 3 - 3-dose series) [code = HEPATITIS B VACCINES (1 of 3 - 3-dose series)] Future Scheduled Test 2022-02-19 COVID-[address] [facility] 10:27:57 (#1) [code = COVID-19 VACCINE (#1)] Future Scheduled Test 2022-02-19 INFLUENZA VACCINE [facility] 10:27:57 [code = INFLUENZA VACCINE] Future Scheduled Test 2022-02-19 HEPATITIS B VACCINES [facility] 10:27:57 (1 of 3 [...] [facility] 00:00:00 (procedure) [code = [facility] [id number]] Future Scheduled Test 2019-11-[address] [facility] 00:00:00 (procedure) [code = [facility] [id number]] Future Scheduled Test 2019-11-[address] [facility] 00:00:00 (procedure) [code = [facility] [id number]] Future Scheduled Test 2019-11-[address] [facility] 00:00:00 (procedure) [code = [facility] [id number]] Future Scheduled Test 2019-11-[address] [facility] 00:00:00 (procedure) [code = [facility] [id number]] Future Scheduled Test 2019-11-[address] [facility] 00:00:00 (procedure) [code = [facility] [id number]] Future Scheduled Test 2019-11-[address] [facility] 00:00:00 (procedure) [code = [facility] [id number]] Future Scheduled Test 2019-11-[address] [facility] 00:00:00 (procedure) [code = [facility] [id number]] Future Scheduled Test 2019-11-[address] [facility] 00:00:00 (procedure) [code = [facility] [facility] [place] [id number]] Future Scheduled Test 2019-11-[address] [facility] 00:00:00 (procedure) [code = [facility] [place] [id number]] Future Scheduled Test 2019-11-[address] [facility] 00:00:00 (procedure) [code = [facility] [place] [id number]] Future Scheduled Test 2019-11-[address] [facility] 00:00:00 (procedure) [code = [facility] [id number]] Future Scheduled Test 2019-11-[address] [facility] 00:00:00 (procedure) [code = [facility] [place] 45037495] Future Scheduled Test 2019-11-[address] [facility] 00:00:00 (procedure) [code = [facility] [place] [id number]] Future Scheduled Test 2019-11-[address] [facility] 00:00:00 (procedure) [code = [facility] [place] 47185889] Future Scheduled Test 2019-11-[address] [facility] 00:00:00 (procedure) [code = [facility] [place] 19800596] Future Scheduled Test 2019-11-[address] [facility] 00:00:00 (procedure) [code = [facility] [place] 13709895] Future Scheduled Test 2019-11-[address] [facility] 00:00:00 (procedure) [code = [facility] [place] 28632286] Future Scheduled Test 2011-01-02 MEDICARE ANNUAL [facility] [...] Varnish] Future Appointment 2022-04-06 Nolan Del Valle [facility] 00:00:00 [facility] , [place] [address] Encounters Start End Encounter Admission Attending Care Care Encounter Source Date/Time Date/Time Type Type Clinicians Facility Department ID 2022-02-08 Outpatient [facility] [id number] [place] 12:40:13 [id number] [facility] 2022-01-25 Outpatient [facility] [id number] [place] 13:48:30 [id number] [facility] 2022-01-15 [id number] 09:20:35 WANDA 2022-05-03 2022-05-03 [facility] [id number] [place] 00:00:00 00:00:00 [facility] 2022-04-05 2022-04-05 [facility] [id number] [place] 00:00:00 00:00:00 [facility] 2022-04-02 2022-04-02 Outpatient [facility]Tod PRIV PRIV [id number] [facility] 00:00:00 00:00:00 d_J [id number] Medica l 2022-03-25 2022-03-25 Outpatient [facility]Tod PRIV PRIV [id number] [facility] 00:00:00 00:00:00 d_J [id number] Medica l 2022-03-23 2022-03-23 Outpatient [facility]Tod PRIV PRIV [id number] [facility] 00:00:00 00:00:00 d_J [id number] Medica l 2022-03-23 2022-03-23 Mariela [facility] 920 [facility] 00:00:00 00:00:00 JEANIE Linares: Health - Med ical [address] [address] , Ph. 2022-03-22 2022-03-22 Damir Dong [facility] - [facility] 19 [facility] 00:00:00 00:00:00 Lizbeth [facility] - Med ical MD: [address] [address] , Ph. 2022-03-16 2022-03-16 [facility] 913 [facility] 00:00:00 00:00:00 JEANIE Linares: Health - Med ical [address] [address] , Ph. 2022-03-12 2022-03-12 Outpatient [facility]_Tod PRIV PRIV [id number] [facility] 00:00:00 00:00:00 d_Vishnu [id number] Medica l 2022-03-05 2022-03-05 Outpatient Vijay [facility] [id number] c-3 00:00:00 00:00:00 Mariela [id number] 2022-03-05 2022-03-05 [facility] [id number] [facility] 00:00:00 00:00:00 JEANIE Linares: Health - Med ical [address] [address] , Ph. 2022-03-02 2022-03-02 Outpatient Vijay, PRIV PRIV [id number] e-[id number] 00:00:00 00:00:00 Mariela rapp3-11ed-b [id number] 2022-03-02 2022-03-02 Mariela [facility] [id number] [facility] 00:00:00 00:00:00 JEANIE Linares: Health - Med ical [address] [address] , Ph. 2022-02-28 2022-02-28 Outpatient GC_[facility]_Tod PRIV PRIV [id number] [facility] 00:00:00 00:00:00 d_J [id number] Medica l 2022-02-25 2022-02-25 Outpatient Lizbeth, PRIV PRIV [id number] 00:00:00 00:00:00 Damir Umana [id number]-[id number] 2022-02-25 2022-02-25 Damir Umana [facility] 202 [id number] [facility] 00:00:00 00:00:00 Lizbeth [facility] - Med ica MD: [address] [address] , Ph. 2022-02-23 2022-02-23 Outpatient Vijay, PRIV PRIV [id number] e-2 00:00:00 00:00:00 Mariela fulton7-11ed-b [id number] 2022-02-23 2022-02-23 Mariela [facility] [id number] [facility] 00:00:00 00:00:00 JEANIE Linares: Health - Med ical [address] [address] , Ph. 2022-02-19 2022-02-19 Outpatient [facility]_Tod PRIV PRIV [id number] [facility] 00:00:00 00:00:00 d_J [id number] Medica l 2022-02-19 2022-02-19 Mariela [facility] [id number] [facility] 00:00:00 00:00:00 JEANIE Linares: Health - Med ical [address] [address] , Ph. 2022-02-19 2022-02-19 Outpatient Vijay PRIV PRIV [id number] 00:00:00 00:00:00 Mariela [id number]-9 [id number] 2022-02-18 2022-02-18 Outpatient [facility]_Tod PRIV PRIV 247 [id number] [facility] 00:00:00 00:00:00 d_J [id number] Medica l 2022-01-26 2022-02-16 [facility] [id number] 14:02:00 21:42:00 Ritubaldo 07 2022-01-26 2022-02-16 [facility] [id number] [place] 14:02:00 21:42:00 RITVIJ l [facility] 2022-02-02 2022-02-02 [facility] [id number] [place] 00:00:00 00:00:00 [facility] 2022-01-18 2022-01-26 Inpatient E CHRISSY LLOYD MED [id number] MHBL 10:31:00 12:59:00 [facility] 2022-01-16 2022-01-26 Outpatient Chrissy, MHPL PL [id number] 07:55:41 12:59:00 Arvind 2022-01-16 2022-01-26 Outpatient Chrissy, MHPL MHPL [id number] 07:55:41 12:59:00 Arvind 2022-01-16 2022-01-[id number] 07:55:41 07:55:41 Chris 07 [facility] 2022-01-12 2022-01-12 Emergency ER AI [facility] Emergency [id number] [facility] 16:19:00 17:42:00 [facility] 2022-01-12 2022-01-12 Emergency ER Ai, [facility] [id number] 16:19:00 17:42:00 [facility] 2022-01-12 2022-01-12 Travel [facility] [id number] [facility] 00:[facility] 00:00:00 [facility] 2022-01-08 2022-01-08 Emergency Zain Degroot [facility] LA00 [id number] [facility] 12:40:00 18:44:00 95 [facility] 2022-01-08 2022-01-08 Emergency Zain Degroot HCAPM HCAPM LA61 [facility] 12:40:00 18:44:00 [id number] [facility] 2022-01-07 2022-01-07 Orders Betty, [facility] [id number] Talha 00:00:00 00:00:00 Only Meroe B [facility] 2022-01-07 2022-01-07 Orders Betty, [facility] [id number] [place] 00:00:00 00:00:00 Only Meroe B Health 2021-12-23 2021-12-23 Outpatient SARAI, [facility] [id number] [place] 12:11:26 12:16:15 [facility] 2021-12-23 2021-12-23 Office Sarai, [facility] [id number] [place] 11:00:00 12:16:02 Visit Annie H Healt 2021-12-23 2021-12-23 Office Sarai, [facility] [id number] [place] 11:00:00 12:16:02 Visit Annie H Healt h 2021-12-23 2021-12-23 Outpatient SARAI, [facility] [id number] [place] 00:00:00 00:00:00 [facility] 2021-12-23 2021-12-23 Orders Sarai, [facility] [id number] [place] 00:00:00 00:00:00 Only Annie H Healt h 2021-12-23 2021-12-23 [facility] [id number] [place] 00:00:00 00:00:00 Only Annie Abreu 2021-12-02 2021-12-16 Emergency Lion Londonojoaquín Kym [facility] [id number] [place] 16:49:00 11:54:00 Marla Bai [facility] [place], Malissa Walker P 2021-12-02 2021-12-16 Emergency Lion LondonoKym yanes [facility] [id number] [place] 16:49:00 11:54:00 Marla Bai [facility] [place], Malissa Walker P 2021-12-15 2021-12-15 Outpatient [facility] [id number] [place] 11:10:10 11:58:48 [facility] 2021-12-14 2021-12-14 Outpatient [facility] [id number] [place] 15:58:03 15:58:08 [facility] 2021-12-14 2021-12-14 Outpatient [facility] [id number] [place] 13:56:45 14:11:44 [facility] 2021-12-10 2021-12-10 Outpatient [facility] [id number] [place] 08:04:54 09:52:59 [facility] 2021-12-09 2021-12-09 Outpatient [facility] [id number] [place] 14:31:10 16:27:35 [facility] 2021-12-05 2021-12-05 Outpatient [facility] [id number] [place] 15:47:31 16:10:42 [facility] 2021-12-05 2021-12-05 [facility] [id number] [place] 00:00:00 00:00:00 [facility] 2021-12-02 2021-12-02 [facility] [id number] [place] 17:25:24 18:26:13 RON [facility] KYM 2021-12-02 2021-12-02 [facility] [id number] [place] 16:49:00 16:49:00 [facility] 2021-12-01 2021-12-01 Outpatient HARVINDER Shukla [facility] [id number] 06:20:00 12:40:00 Wanda 05 Sherrill 2021-12-01 2021-12-01 Outpatient ERISL, MHFB MHFB [id number] MHFB 06:20:00 12:40:00 WANDA 2021-12-01 2021-12-01 Outpatient Gayla, MHSL MHSL [id number] 08:00:00 08:00:00 Wanda Sherrill 2021-11-25 2021-11-25 Emergency ER OJOSE F [facility] Emergency [id number] [facility] 16:20:00 16:55:00 [facility] 2021-11-25 2021-11-25 Emergency Ojose f, [facility] [id number] 16:20:00 16:55:00 [facility] 2021-07-31 2021-07-31 Travel [facility] [id number] [facility] 00:[facility] 00:00:00 [facility] 2021-07-30 2021-07-30 [facility] [id number] SLSL 19:14:00 21:58:00 2021-07-30 2021-07-[address] [facility] [id number] 19:14:00 21:58:00 [facility] 2018-07-01 2018-07-01 Outpatient Folorunsho, MHPL MHPL [id number] 18:27:00 22:12:00 Jazmin Lucero 2018-06-27 2018-06-29 Outpatient Hammonds, MHPL MHPL [id number] 20:48:00 19:05:00 Ugochi 04 Kianna 2017-12-30 2017-12-30 Outpatient Iheme, Rony MHPL MHPL [id number] 10:30:00 12:31:00 U 03 2016-10-04 2016-10-08 Outpatient Ajao, MHPL MHPL [id number] 13:28:00 15:10:00 Annette 02 Yasmin 2016-04-17 2016-04-17 Outpatient Sandhir, MHPL MHPL [id number] 10:11:00 13:54:00 Ambica 2015-07-17 2015-07-18 Outpatient Vijay Combs [facility] [id number] 14:28:00 12:05:00 Foster 2015-07-17 2015-07-17 Outpatient OTILIO Shields [facility] [id number] 11:42:00 14:15:00 Nadim B 00 Results Test Description Test Time Test Comments Results Result Comments Source B-TYPE NATRIURETIC FACTOR (BNP) 2022-01-12 17:12:09 Test Item Value Reference Range Interpretation Comme nts B-TYPE NATRIURETIC PEPTIDE (BEAKER) (test code = 700) 69 pg/mL 0-100 [employer]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 [employer] Operator ID - [id number] ID - WZWUW932Aqkjgngh ID - WPAJU051Tcvqecww ID - MUXNM057Zhwkzseq ID - XCKXL873Wizqhqbx ID - AMVFQ011Ayneodzx ID - PAEDG243Ovfwzstn ID - SUFLR666Nvbofqcw ID - YBPFK082Zaczeale ID - BYRNN107Adfezjxd ID - EVXVI734Vsildvsr ID - YZLQQ394Gfocojik ID - BZPEF384Ihzcahuz ID - LIRWK326Fjtbvtwc ID - NFUZK939Mnzfmgio ID - KRGXT421Cskiyvcf ID - VTPVM639Jxpuldrf ID - LHTHF915Xczyovmg ID - KSQDG297RKG W/PLT COUNT & AUTO SAUQABBPXJYS9314-45-57 16:49:25 Test Item Value Reference Range Interpretation [...] code = 2801) - CTA CHEST FOR [id number] 18:27:00 [facility] 1985 Sex: M Name: ALEXY NUNN [facility] : 1985 Age/S: 36 / M [id number] Unit #: [id number] Loc: [place] [address] Phys: Zain David DO Acct: [id number] Dis Date: Status: REG ER PHONE #: [phone] Exam Date: 01/08/2022 3097 FAX #: Reason: evaluate for PE EXAMS: CPT: [id number] [place] [address] EXAM: - CTA CHEST FOR PE LOCATION: [...] anasarca. PAGE 1 Signed Report (CONTINUED) Name: ALEXY NUNN [facility] : 1985 Age/S: 36 / M [address] Unit #: [id number] Loc: [place] [address] Phys: Zain David DO Acct: [id number] Dis Date: Status: REG ER PHONE #: [phone] Exam Date: 01/08/2022 1803 FAX #: Reason: evaluate for PE EXAMS: CPT: [id number] [place] 91307 (Continued) at 1827 Reported and signed by: Ba Anaya M.D. CC: Zain David DO Technologist:Abram Prasad, RT(R) CTDI: DLP: Trnscb Date/Time: 01/08/2022 (1826) [email or web address] Orig Print D/T: S: 01/08/2022 (1830) PAGE 2Signed Report- DUP VEIN [id number] 16:52:00 [facility] 1985 Sex: M Name: ALEXY NUNN [place] : 1985 Age/S: 36 / M [address] Unit #: [id number] Loc: [place] [address] Phys: Zain David DO Acct: [id number] Dis Date: Status: REG ER PHONE #: [phone] Exam Date: 01/08/2022 1648 FAX #: Reason: swelling EXAMS: CPT: [id number] DUP VEIN COMFORT 09523 EXAM:- DUP VEIN COMFORT LOCATION: H65 HISTORY: swelling [...] CC: Zain David DO Technologist: Kianna Cardenas Trnkyb Date/Time: 01/08/2022 (1652) [email or web address] PAGE 1 Signed Report Name: ALEXY NUNN [place] : 1985 Age/S: 36 / M [address] Unit #: [id number] Loc: [place] [address] Phys: Zain David DO Acct: [id number] Dis Date: Status: REG ER PHONE #: [phone] Exam Date:01/08/2022 1648 FAX #: Reason: swelling EXAMS: CPT: [id number] DUP VEIN COMFORT 36302 (Continued) Orig Pr int D/T: S: 01/08/2022 (6211) Probe: PAGE 2 Signed ReportTROP-I HIGH [id number] 15:07:00 Test Item Value Reference Range Interpretation [...] varyby method. Completed by Nursing: NOBASIC METABOLIC [id number] 15:07:00 Test Item Value Reference Range Interpretation [...] N Completed by Nursing: NONT PRO-BRAIN NATRIURETIC [id number] 15:07:00 Test Item Value Reference Range Interpretation Comments NT PRO-BRAIN NATRIURETIC PEPTI 163 PG/ML 0-100 H (test code = PROBNP) Completed by Nursing: [id number] 15:04:00 Test Item Value Reference Range Interpretation [...] STS AND APPROPRIATECLIN ICAL EUALUATIONS. HEPATIC FUNCTION [id number] 14:58:00 Test Item Value Reference Range Interpretation [...] 50-136 N code = ALKP) CBC W/O [id number] 14:41:00 Test Item Value Reference Range Interpretation [...] 7.0-9.6 H MPV) - XR CHEST 1 [id number] 14:24:00 [facility] 1985 Sex: M Name: ALEXY NUNN [facility] : 1985 Age/S: 36 / M [address] Unit #: [id number] Loc: [place] [address] Phys: Zain David Acct: [id number] Dis Date: Status: REG ER PHONE #: [phone] Exam Date: 01/08/2022 1413 FAX #: Reason: chest pain EXAMS: CPT: [id number] XR CHEST 1 V 54352 Fluoro Time: DAP (Gy m2): Air Kerma (mGy): Site ID: [id number] HISTORY: Chest pain COMPARISON: None FINDINGS: Patchy bibasilar infiltrates may reflect pneumonia or atelectasis. The heart and pulmonary vasculatureis normal. Osseous structures are unremarkable. IMPRESSION: Patchy bibasilar infiltrates may reflect pneumonia or atelectasis at 1424 Reported and signed by: Raymundo Delacruz M.D. CC: Zain David DO PAGE 1 Signed Report Name: ALEXY NUNN [place] : 1985 Age/S: 36 / M [address] Unit #: [id number] Loc: [place] [address] Phys: FrankieZain Acct: [id number] Dis Date: Status: REG ER PHONE #: [phone] Exam Date: 01/08/2022 1418 FAX #: Reason: chest pain EXAMS: CPT: [id number] XR CHEST 1 V 08870 Fluoro Time: DAP (Gy m2): Air Kerma (mGy): (Continued) Technologist: Vladislav Moreno, RT(R)(CT) Trnscb Date/Time: 01/08/2022 (1423) [email or web address] Orig Print D/T: S: 01/08/2022 (6463) PAGE 2 Signed ReportPOCT GLUCOSE POC docked [id number] 10:55:52 Test Item Value Reference Range Interpretation Comments Glucose POC (test code = 34014796) 79 mg/dL 74-106 Lab Interpretation (test code = Normal 83458-8) [facility] [id number] 10:55:52 Test Item Value Reference Range Interpretation Comments Glucose POC (test code = 59514279) 79 mg/dL 74-106 Lab Interpretation (test code = Normal 94039-0) [facility] [id number] 10:55:52 Test Item Value Reference Range Interpretation Comments Glucose POC (test code = 27557948) 79 mg/dL 74-106 Lab Interpretation (test code = Normal 18197-4) [facility] [id number] 10:55:52 Test Item Value Reference Range Interpretation Comments Glucose POC (test code = 65711135) 79 mg/dL 74-106 Lab Interpretation (test code = Normal 21469-3) [facility] [id number] 10:55:52 Test Item Value Reference Range Interpretation Comments Glucose POC (test code = 71954827) 79 mg/dL 74-106 Lab Interpretation (test code = Normal 74206-2) [facility] [id number] 10:55:52 Test Item Value Reference Range Interpretation Comments Glucose POC (test code = 70057480) 79 mg/dL 74-106 Lab Interpretation (test code = Normal 61951-0) [facility] [id number] 10:55:52 Test Item Value Reference Range Interpretation Comments Glucose POC (test code = 56378601) 79 mg/dL 74-106 Lab Interpretation (test code = Normal 91705-7) [facility] [id number] 10:55:52 Test Item Value Reference Range Interpretation Comments Glucose POC (test code = 65797641) 79 mg/dL 74-106 Lab Interpretation (test code = Normal 18181-0) [facility] [id number] 10:55:52 Test Item Value Reference Range Interpretation Comments Glucose POC (test code = 44692747) 79 mg/dL 74-106 Lab Interpretation (test code = Normal 81312-3) [facility] [id number] 10:55:52 Test Item Value Reference Range Interpretation Comments Glucose POC (test code = 47091244) 79 mg/dL 74-106 Lab Interpretation (test code = Normal 97271-4) [facility] [id number] 10:55:52 Test Item Value Reference Range Interpretation Comments Glucose POC (test code = 12908987) 79 mg/dL 74-106 Lab Interpretation (test code = Normal 50961-8) [place] [address] Lead [id number] 14:05:1912 LEAD EKG FOR [facility] Test Date: 7786-21-23Tmi Name: ALEXY CLARK Department: 5CMSPatient ID: [id number] Room: Gender: M Shank Burnisher: SHIOB: 1985 Requested By: MISAEL VELÁZQUEZ EOrder Number: [id number] Naya MD: Rosa Santa MeasurementsIntervals [place] Rate: 90 P: 73PR: 142 QRS: 90QRSD: 104 T: 69QT: 345 QTc: [address] ELEVATION [0.05+ mV ST ELEVATION]Electronically Signed On 12-14-2021 14:05:45 CDT by Teepixst. lou[facility] va medical centerWIN Advanced SystemsCaverna Memorial HospitalWazeTrip Hjjilf50 Lead [id number] 14:05:1912 LEAD EKG FOR [facility] Test Date: 4657-54-25Dfu Name: ALEXY CLARK Department: 5CMSPatient ID: [id number] Room: Gender: M Shank Burnisher: ANNIEDOB: 1985 Requested By: MISAEL VELÁZQUEZ EOrder Number: [id number] Reading MD: Rosa Santa MeasurementsIntervals [place] Rate: 90 P: 73PR: 142 QRS: 90QRSD: 104 T: 69QT: 345 QTc: 393 [address] ELEVATION [0.05+ mV ST ELEVATION]Electronically Signed On 12-14-2021 14:05:45 CDT by Teepixst. lou[facility] medical centerWIN Advanced SystemsCaverna Memorial HospitalAtlas Scientific12 Lead [id number] 14:05:1912 LEAD EKG FOR [facility] Test Date: 4319-57-04Ctl Name: ALEXY CLARK Department: 5CMSPatient ID: [id number] Room: Gender: Shank Burnisher: ANNIEDOB: 1985 Requested By: MISAEL VELÁZQUEZ EOrder Number: [id number] Reading MD: Rosa Santa MeasurementsIntervals [place] Rate: 90 P: 73PR: 142 QRS: 90QRSD: 104 T: 69QT: 345 QTc: 393 [address] ELEVATION [0.05+ mV ST ELEVATION]Electronically Signed On 12-14-2021 14:05:45 CDT by Teepixst. lou[facility] medical centerWIN Advanced SystemsCaverna Memorial HospitalAtlas Scientific12 Lead [id number] 14:05:1912 LEAD EKG FOR [facility] Test Date: 5480-05-49Smn Name: ALEXY CLARK Department: 5CMSPatient ID: [id number] Room: Gender: M Shank Burnisher: ANNIEDOB: 1985 Requested By: MISAEL HUIZARrder Number: [id number] Reading MD: Rosa Santa MeasurementsIntervals [place] Rate: 90 P: 73PR: 142 QRS: 90QRSD: 104 T: 69QT: 345 QTc: 393 [address] ELEVATION [0.05+ mV ST ELEVATION]Electronically Signed On 12-14-2021 14:05:45 CDT by Rosa MedgabWIN Advanced SystemsCaverna Memorial HospitalAtlas Scientific12 Lead [id number] 14:05:1912 LEAD EKG FOR [facility] Test Date: 1454-01-27Udt Name: ALEXY ZAMORAJim Department: 5CMSPatient ID: [id number] Room: Gender: Shank Burnisher: SHIOB: 1985 Requested By: MISAEL HUIZARrder Number: [id number] Reading MD: Rosa Santa MeasurementsIntervals [place] Rate: 90 P: 73PR: 142 QRS: 90QRSD: 104 T: 69QT: 345 QTc: [address] ELEVATION [0.05+ mV ST ELEVATION]Electronically Signed On 12-14-2021 14:05:45 CDT by TeepixgabWilkes-Barre General HospitalAtlas Scientific12 Lead [id number] 14:05:1912 LEAD EKG FOR [facility] Test Date: 6417-68-58Oln Name: ALEXY ZAMORAJim Department: 5CMSPatient ID: [id number] Room: Gender: Shank Burnisher: ANNIEDOB: 1985 Requested By: MISAEL HUIZARrder Number: [id number] Reading MD: Rosa Santa MeasurementsIntervals [place] Rate: 90 P: 73PR: 142 QRS: 90QRSD: 104 T: 69QT: 345 QTc: [address] ELEVATION [0.05+ mV ST ELEVATION]Electronically Signed On 12-14-2021 14:05:45 CDT by TeepixgabWIN Advanced SystemsCaverna Memorial HospitalAtlas Scientific12 Lead [id number] 14:05:1912 LEAD EKG FOR [facility] Test Date: 1246-34-52Uxg Name: ALEXY CLARK Department: 5CMSPatient ID: [id number] Room: Gender: M Shank Burnisher: ANNIEDOB: 1985 Requested By: MISAEL Lacyer Number: [id number] Reading MD: Rosa Santa MeasurementsIntervals [place] Rate: 90 P: 73PR: 142 QRS: 90QRSD: 104 T: 69QT: 345 QTc: [address] ELEVATION [0.05+ mV ST ELEVATION]Electronically Signed On 12-14-2021 14:05:45 CDT by [place] [employer] ExpressCaver[facility] HospitalAtlas Scientific12 Lead [id number] 14:05:1912 LEAD EKG FOR [facility] Test Date: [id number] Name: ALEXY CLARK Department: MSPatient ID: [id number] Room: Gender: Shank Burnisher: ANNIEDOB: 1985 Requested By: MISAEL Lacyer Number: [id number] Reading MD: Rosa Santa MeasurementsIntervals [place] Rate: 90 P: 73PR: 142 QRS: 90QRSD: 104 T: 69QT: 345 QTc: [address] ELEVATION [0.05+ mV ST ELEVATION]Electronically Signed On 12-14-2021 14:05:45 CDT by [place] [employer]12 Lead [id number] 14:05:1912 LEAD EKG FOR [facility] Test Date: [id number] Name: ALEXY CLARK Department: 5CMSPatient ID: [id number] Room: Gender: M Shank Burnisher: ANNIEDOB: 1985 Requested By: MISAEL HUIZARrder Number: [id number] Reading MD: Rosa Santa MeasurementsIntervals [place] Rate: 90 P: 73PR: 142 QRS: 90QRSD: 104 T: 69QT: 345 QTc: [address] ELEVATION [0.05+ mV ST ELEVATION]Electronically Signed On 12-14-2021 14:05:45 CDT by [place] [facility] ExpressCaver[facility] HospitalAtlas Scientific12 Lead [id number] 14:05:1912 LEAD EKG FOR [facility] Test Date: [id number] Name: ALEXY CLARK Department: 5CMSPatient ID: [id number] Room: Gender: Shank Burnisher: SHIOB: 1985 Requested By: MISAEL VELÁZQUEZ EOrder Number: [id number] Reading MD: Rosa Santa MeasurementsIntervals [place] Rate: 90 P: 73PR: 142 QRS: 90QRSD: 104 T: 69QT: 345 QTc: 393 [address] ELEVATION [0.05+ mV ST ELEVATION]Electronically Signed On 12-14-2021 14:05:45 CDT by [place] [facility]12 Lead [id number] 14:05:1912 LEAD EKG FOR [facility] Test Date: 4540-29-14Qci Name: ALEXY CLARK Department: 5CMSPatient ID: [id number] Room: Gender: Shank Burnisher: SHIOB: 1985 Requested By: MISAEL VELÁZQUEZ EOrder Number: [id number] Reading MD: Rosa Santa MeasurementsIntervals [place] Rate: 90 P: 73PR: 142 QRS: 90QRSD: 104 T: 69QT: 345 QTc: 393 Interpretive StatementsSINUS RHYTHMNONSPECIFIC ST ELEVATION [0.05+ mV ST ELEVATION]Electronically Signed On 12-14-2021 14:05:45 CDT by [place] [facility] ScientificNVV 1+2 Ab+HIV1 p24 Ag SerPl Ql [id number] 11:54:50 Test Item Value Reference Range Interpretation Comments HIV 1+2 Ab+HIV1 p24 Ag SerPl Ql [place] NEGATIVE Negative (test code = 86947-0) Coronavirus, CoVID-19, [id number] 02:25:42 Test Item Value Reference Interpretation Comments Range COVID-19 Not Detected Not Detected INTERPRETATION: (SARS-COV-2) (test No detect able code = 39164-6) levels of SARS-CoV-2 Coronavirus (COVID-19) were present [...] [facility] molecular diagnostics laboratory and is authorized for clinical diagnostic use. This laboratory is certified under the Clinical Laboratory Improvement Amendments (CLIA) as qualified to perform high complexity clinical laboratory testing. Lab Interpretation Normal (test code = 25161-1) [facility] [id number] 02:25:42 Test Item Value Reference Interpretation Comments Range COVID-19 Not Detected Not Detected INTERPRETATION: (SARS-COV-2) (test No detect able code = 31559-1) levels of SARS-CoV-2 Coronavirus (COVID-19) were present [...] [facility] molecular diagnostics laboratory and is authorized for clinical diagnostic use. This laboratory is certified under the Clinical Laboratory Improvement Amendments (CLIA) as qualified to perform high complexity clinical laboratory testing. Lab Interpretation Normal (test code = 85914-9) Talha Shepherdronavirus, CoVID-19, [id number] 02:25:42 Test Item Value Reference Interpretation Comments Range COVID-19 Not Detected Not Detected INTERPRETATION: (SARS-COV-2) (test No detect able code = 12169-0) levels of SARS-CoV-2 Coronavirus (COVID-19) were present [...] [facility] molecular diagnostics laboratory and is authorized for clinical diagnostic use. This laboratory is certified under the Clinical Laboratory Improvement Amendments (CLIA) as qualified to perform high complexity clinical laboratory testing. Lab Interpretation Normal (test code = 18775-7) Talha Ortegaavirus, CoVID-19, [id number] 02:25:42 Test Item Value Reference Interpretation Comments Range COVID-19 Not Detected Not Detected INTERPRETATION: (SARS-COV-2) (test No detect able code = 06879-4) levels of SARS-CoV-2 Coronavirus (COVID-19) were present [...] [facility] molecular diagnostics laboratory and is authorized for clinical diagnostic use. This laboratory is certified under the Clinical Laboratory Improvement Amendments (CLIA) as qualified to perform high complexity clinical laboratory testing. Lab Interpretation Normal (test code = 95800-3) [facility], [id number] 02:25:42 Test Item Value Reference Interpretation Comments Range COVID-19 Not Detected Not Detected INTERPRETATION: (SARS-COV-2) (test No detect able code = 84613-5) levels of SARS-CoV-2 Coronavirus (COVID-19) were present [...] [facility] molecular diagnostics laboratory and is authorized for clinical diagnostic use. This laboratory is certified under the Clinical Laboratory Improvement Amendments (CLIA) as qualified to perform high complexity clinical laboratory testing. Lab Interpretation Normal (test code = 48381-8) Talha Ortegaavirus, CoVID-19, [id number] 02:25:42 Test Item Value Reference Interpretation Comments Range COVID-19 Not Detected Not Detected INTERPRETATION: (SARS-COV-2) (test No detect able code = 30488-0) levels of SARS-CoV-2 Coronavirus (COVID-19) were present [...] active infectio n with SARS-CoV-2 Coronavirus (COVID-19). BIRSA (test code = COMMENT: This deepti BRISA) [...] [facility] molecular diagnostics laboratory and is authorized for clinical diagnostic use. This laboratory is certified under the Clinical Laboratory Improvement Amendments (CLIA) as qualified to perform high complexity clinical laboratory testing. Lab Interpretation Normal (test code = 62409-1) Talha Ortegaavirus, CoVID-19, [id number] 02:25:42 Test Item Value Reference Interpretation Comments Range COVID-19 Not Detected Not Detected INTERPRETATION: (SARS-COV-2) (test No detect able code = 73414-2) levels of SARS-CoV-2 Coronavirus (COVID-19) were present [...] [facility] molecular diagnostics laboratory and is authorized for clinical diagnostic use. This laboratory is certified under the Clinical Laboratory Improvement Amendments (CLIA) as qualified to perform high complexity clinical laboratory testing. Lab Interpretation Normal (test code = 05434-6) [facility], [id number] 02:25:42 Test Item Value Reference Interpretation Comments Range COVID-19 Not Detected Not Detected INTERPRETATION: (SARS-COV-2) (test No detect able code = 18573-8) levels of SARS-CoV-2 Coronavirus (COVID-19) were present [...] [facility] molecular diagnostics laboratory and is authorized for clinical diagnostic use. This laboratory is certified under the Clinical Laboratory Improvement Amendments (CLIA) as qualified to perform high complexity clinical laboratory testing. Lab Interpretation Normal (test code = 20745-5) Talha Ortegaavirus, CoVID-19, [id number] 02:25:42 Test Item Value Reference Interpretation Comments Range COVID-19 Not Detected Not Detected INTERPRETATION: (SARS-COV-2) (test No detect able code = 55091-2) levels of SARS-CoV-2 Coronavirus (COVID-19) were present [...] [facility] molecular diagnostics laboratory and is authorized for clinical diagnostic use. This laboratory is certified under the Clinical Laboratory Improvement Amendments (CLIA) as qualified to perform high complexity clinical laboratory testing. Lab Interpretation Normal (test code = 79653-8) Talha Ortegaavirus, CoVID-19, [id number] 02:25:42 Test Item Value Reference Interpretation Comments Range COVID-19 Not Detected Not Detected INTERPRETATION: (SARS-COV-2) (test No detect able code = 37514-6) levels of SARS-CoV-2 Coronavirus (COVID-19) were present [...] [facility] molecular diagnostics laboratory and is authorized for clinical diagnostic use. This laboratory is certified under the Clinical Laboratory Improvement Amendments (CLIA) as qualified to perform high complexity clinical laboratory testing. Lab Interpretation Normal (test code = 11908-7) [facility], [id number] 02:25:42 Test Item Value Reference Interpretation Comments Range COVID-19 Not Detected Not Detected INTERPRETATION: (SARS-COV-2) (test No detect able code = 95413-8) levels of SARS-CoV-2 Coronavirus (COVID-19) were present [...] [facility] molecular diagnostics laboratory and is authorized for clinical diagnostic use. This laboratory is certified under the Clinical Laboratory Improvement Amendments (CLIA) as qualified to perform high complexity clinical laboratory testing. Lab Interpretation Normal (test code = 53326-3) [facility]-CoV-[facility] RNA Resp Ql [id number] 02:25:42 Test Item Value Reference Range Interpretation Comments Hospitalized? (test No code = 37250-2) ICU? (test code = No 93183-4) Symptomatic as defined No by CDC? (test code = 44758-6) Employed in No Healthcare? (test code = 35476-5) Resident in a No congregate care setting (including nursing homes, residential care for people with intellectual and developmental disabilities, psychiatric treatment facilities, group homes, board and care homes, homeless alf, foster care or other): (test code = 85438-3) SARS-CoV-2 RNA Resp Ql NOT DETECTED Not Detected INTER PRETATION: No YOSHI+probe (test code = detec table levels 86951-4) of SARS-CoV-2 Coronavirus (COVID-19) were present in [...] [facility] molecular diagnostics laboratory and is authorized for clinical diagnostic use. This laboratory is certified under the Clinical Laboratory Improvement Amendments (CLIA) as qualified to perform high complexity clinical laboratory testing.POCT BMP POC docked device 2021-12-02 20:33:07 Test Item Value Reference Range Interpretation Comments Sodium POC (test code = 134 mmol/L 136-145 L 03121722) Potassium POC (test code 4.2 mmol/L 3.5-5.1 = 24976785) Chloride POC (test code 103 mmol/L 98-107 = 35298637) TCO2 POC (test code = 28 mmol/L 21-32 Physic alden Notified 50649578) Urea Nitrogen POC (test 12 mg/dL 7-18 code = 09472111) Glucose POC (test code = 76 mg/dL 74-106 01240442) Hemoglobin POC (test 7.1 g/dL 12-16 L code = 58433466) Hematocrit POC (test 21.0 % 37.0-47.0 L code = 09874398) Lab Interpretation (test Abnormal code = 36104-4) [facility] BMP POC docked [id number] 20:33:07 Test Item Value Reference Range Interpretation Comments Sodium POC (test code = 134 mmol/L 136-145 L 01877162) Potassium POC (test code 4.2 mmol/L 3.5-5.1 = 74747447) Chloride POC (test code 103 mmol/L 98-107 = 26970624) TCO2 POC (test code = 28 mmol/L 21-32 Physic alden Notified 69731983) Urea Nitrogen POC (test 12 mg/dL 7-18 code = 89246896) Glucose POC (test code = 76 mg/dL 74-106 18725788) Hemoglobin POC (test 7.1 g/dL 12-16 L code = 81679141) Hematocrit POC (test 21.0 % 37.0-47.0 L code = 00248526) Lab Interpretation (test Abnormal code = 06783-3) [facility] POC docked [id number] 20:33:07 Test Item Value Reference Range Interpretation Comments Sodium POC (test code = 134 mmol/L 136-145 L 53458426) Potassium POC (test code 4.2 mmol/L 3.5-5.1 = 67545726) Chloride POC (test code 103 mmol/L 98-107 = 59464357) TCO2 POC (test code = 28 mmol/L 21-32 Physic alden Notified 95734451) Urea Nitrogen POC (test 12 mg/dL 7-18 code = 69430396) Glucose POC (test code = 76 mg/dL 74-106 06761822) Hemoglobin POC (test 7.1 g/dL 12-16 L code = 48693353) Hematocrit POC (test 21.0 % 37.0-47.0 L code = 97894450) Lab Interpretation (test Abnormal code = 26771-9) [facility] POC docked [id number] 20:33:07 Test Item Value Reference Range Interpretation Comments Sodium POC (test code = 134 mmol/L 136-145 L 94555623) Potassium POC (test code 4.2 mmol/L 3.5-5.1 = 35700912) Chloride POC (test code 103 mmol/L 98-107 = 03893083) TCO2 POC (test code = 28 mmol/L - Physic alden Notified 08188852) Urea Nitrogen POC (test 12 mg/dL 7-18 code = 93206040) Glucose POC (test code = 76 mg/dL 74-106 29648209) Hemoglobin POC (test 7.1 g/dL 12-16 L code = 28456373) Hematocrit POC (test 21.0 % 37.0-47.0 L code = 31640091) Lab Interpretation (test Abnormal code = 46615-8) [facility] POC docked [id number] 20:33:07 Test Item Value Reference Range Interpretation Comments Sodium POC (test code = 134 mmol/L 136-145 L 63798182) Potassium POC (test code 4.2 mmol/L 3.5-5.1 = 79751327) Chloride POC (test code 103 mmol/L 98-107 = 50254478) TCO2 POC (test code = 28 mmol/L 21-32 Physic alden Notified 79073293) Urea Nitrogen POC (test 12 mg/dL 7-18 code = 89556657) Glucose POC (test code = 76 mg/dL 74-106 12646868) Hemoglobin POC (test 7.1 g/dL 12-16 L code = 69788920) Hematocrit POC (test 21.0 % 37.0-47.0 L code = 34475879) Lab Interpretation (test Abnormal code = 35157-6) [facility] POC docked [id number] 20:33:07 Test Item Value Reference Range Interpretation Comments Sodium POC (test code = 134 mmol/L 136-145 L 50071610) Potassium POC (test code 4.2 mmol/L 3.5-5.1 = 30407389) Chloride POC (test code 103 mmol/L 98-107 = 84123759) TCO2 POC (test code = 28 mmol/L 21-32 Physic alden Notified 76075518) Urea Nitrogen POC (test 12 mg/dL 7-18 code = 92225546) Glucose POC (test code = 76 mg/dL 74-106 01454341) Hemoglobin POC (test 7.1 g/dL 12-16 L code = 79354441) Hematocrit POC (test 21.0 % 37.0-47.0 L code = 47125371) Lab Interpretation (test Abnormal code = 84161-7) [facility] POC docked [id number] 20:33:07 Test Item Value Reference Range Interpretation Comments Sodium POC (test code = 134 mmol/L 136-145 L 16195551) Potassium POC (test code 4.2 mmol/L 3.5-5.1 = 43738715) Chloride POC (test code 103 mmol/L 98-107 = 30457427) TCO2 POC (test code = 28 mmol/L 21-32 Physic alden Notified 25626427) Urea Nitrogen POC (test 12 mg/dL 7-18 code = 36531672) Glucose POC (test code = 76 mg/dL 74-106 43447766) Hemoglobin POC (test 7.1 g/dL 12-16 L code = 31462084) Hematocrit POC (test 21.0 % 37.0-47.0 L code = 92137408) Lab Interpretation (test Abnormal code = 07442-9) [facility] POC docked [id number] 20:33:07 Test Item Value Reference Range Interpretation Comments Sodium POC (test code = 134 mmol/L 136-145 L 01892374) Potassium POC (test code 4.2 mmol/L 3.5-5.1 = 42203517) Chloride POC (test code 103 mmol/L 98-107 = 39149671) TCO2 POC (test code = 28 mmol/L 21-32 Physic alden Notified 69779985) Urea Nitrogen POC (test 12 mg/dL 7-18 code = 41007936) Glucose POC (test code = 76 mg/dL 74-106 06408433) Hemoglobin POC (test 7.1 g/dL 12-16 L code = 12565091) Hematocrit POC (test 21.0 % 37.0-47.0 L code = 77195938) Lab Interpretation (test Abnormal code = 56088-7) [facility] POC docked [id number] 20:33:07 Test Item Value Reference Range Interpretation Comments Sodium POC (test code = 134 mmol/L 136-145 L 12197567) Potassium POC (test code 4.2 mmol/L 3.5-5.1 = 22124055) Chloride POC (test code 103 mmol/L 98-107 = 46414814) TCO2 POC (test code = 28 mmol/L -32 Physic alden Notified 69797134) Urea Nitrogen POC (test 12 mg/dL 7-18 code = 16475654) Glucose POC (test code = 76 mg/dL 74-106 35479750) Hemoglobin POC (test 7.1 g/dL 12-16 L code = 65026803) Hematocrit POC (test 21.0 % 37.0-47.0 L code = 80476958) Lab Interpretation (test Abnormal code = 61329-3) [facility] POC docked [id number] 20:33:07 Test Item Value Reference Range Interpretation Comments Sodium POC (test code = 134 mmol/L 136-145 L 86188988) Potassium POC (test code 4.2 mmol/L 3.5-5.1 = 08536793) Chloride POC (test code 103 mmol/L 98-107 = 81651723) TCO2 POC (test code = 28 mmol/L 21-32 Physic alden Notified 45249253) Urea Nitrogen POC (test 12 mg/dL 7-18 code = 88180616) Glucose POC (test code = 76 mg/dL 74-106 17468769) Hemoglobin POC (test 7.1 g/dL 12-16 L code = 13318830) Hematocrit POC (test 21.0 % 37.0-47.0 L code = 49362224) Lab Interpretation (test Abnormal code = 86385-6) [facility] BMP POC docked [id number] 20:33:07 Test Item Value Reference Range Interpretation Comments Sodium POC (test code = 134 mmol/L 136-145 L 34331886) Potassium POC (test code 4.2 mmol/L 3.5-5.1 = 21152361) Chloride POC (test code 103 mmol/L 98-107 = 46523156) TCO2 POC (test code = 28 mmol/L 21-32 Physic alden Notified 25261521) Urea Nitrogen POC (test 12 mg/dL 7-18 code = 22808298) Glucose POC (test code = 76 mg/dL 74-106 16037169) Hemoglobin POC (test 7.1 g/dL 12-16 L code = 53266998) Hematocrit POC (test 21.0 % 37.0-47.0 L code = 52814978) Lab Interpretation (test Abnormal code = 48681-6) [facility] CREATININE POC docked [id number] 20:32:51 Test Item Value Reference Range Interpretation Comments Creatinine POC (test 0.5 mg/dL 0.6-1.3 L Physici an Notified code = 55753706) eGFR If non- Am >120 See_Comment [Aut omated message] (test code = 74402001) The s ystem which generated this result transmit gregory reference range : >=90 mL/min/1.7 3 m2. The reference r sravanthi was not used to interpret this result as normal/abnormal . eGFR If Am (test >120 See_Comment [A utomated message] code = 48873178) The system which generated this result transmit gregory reference range : >=90 mL/min/1.7 3 m2. The reference r sravanthi was not used to interpret this result as normal/abnormal . Lab Interpretation (test Abnormal code = 21202-4) [facility] CREATININE POC docked [id number] 20:32:51 Test Item Value Reference Range Interpretation Comments Creatinine POC (test 0.5 mg/dL 0.6-1.3 L Physici an Notified code = 87647751) eGFR If non- Am >120 See_Comment [Aut omated message] (test code = 46848722) The s ystem which generated this result transmit gregory reference range : >=90 mL/min/1.7 3 m2. The reference r sravanthi was not used to interpret this result as normal/abnormal . eGFR If Am (test >120 See_Comment [A utomated message] code = 03765069) The system which generated this result transmit gregory reference range : >=90 mL/min/1.7 3 m2. The reference r sravanthi was not used to interpret this result as normal/abnormal . Lab Interpretation (test Abnormal code = 34146-6) [facility] [id number] 20:32:51 Test Item Value Reference Range Interpretation Comments Creatinine POC (test 0.5 mg/dL 0.6-1.3 L Physici an Notified code = 87378224) eGFR If non- Am >120 See_Comment [Aut omated message] (test code = 22274039) The s ystem which generated this result transmit gregory reference range : >=90 mL/min/1.7 3 m2. The reference r sravanthi was not used to interpret this result as normal/abnormal . eGFR If Am (test >120 See_Comment [A utomated message] code = 30044345) The system which generated this result transmit gregory reference range : >=90 mL/min/1.7 3 m2. The reference r sravanthi was not used to interpret this result as normal/abnormal . Lab Interpretation (test Abnormal code = 90764-7) [facility] POC docked [id number] 20:32:51 Test Item Value Reference Range Interpretation Comments Creatinine POC (test 0.5 mg/dL 0.6-1.3 L Physici an Notified code = 13497806) eGFR If non- Am >120 See_Comment [Aut omated message] (test code = 81761493) The s ystem which generated this result transmit gregory reference range : >=90 mL/min/1.7 3 m2. The reference r sravanthi was not used to interpret this result as normal/abnormal . eGFR If Am (test >120 See_Comment [A utomated message] code = 50979622) The system which generated this result transmit gregory reference range : >=90 mL/min/1.7 3 m2. The reference r sravanthi was not used to interpret this result as normal/abnormal . Lab Interpretation (test Abnormal code = 22333-6) [facility] POC docked [id number] 20:32:51 Test Item Value Reference Range Interpretation Comments Creatinine POC (test 0.5 mg/dL 0.6-1.3 L Physici an Notified code = 08389708) eGFR If non- Am >120 See_Comment [Aut omated message] (test code = 89624519) The s ystem which generated this result transmit gregory reference range : >=90 mL/min/1.7 3 m2. The reference r sravanthi was not used to interpret this result as normal/abnormal . eGFR If Am (test >120 See_Comment [A utomated message] code = 17469301) The system which generated this result transmit gregory reference range : >=90 mL/min/1.7 3 m2. The reference r sravanthi was not used to interpret this result as normal/abnormal . Lab Interpretation (test Abnormal code = 69255-4) [facility] P[facility] docked [id number] 20:32:51 Test Item Value Reference Range Interpretation Comments Creatinine POC (test 0.5 mg/dL 0.6-1.3 L Physici an Notified code = 96525191) eGFR If non- Am >120 See_Comment [Aut omated message] (test code = 21037219) The s ystem which generated this result transmit gregory reference range : >=90 mL/min/1.7 3 m2. The reference r sravanthi was not used to interpret this result as normal/abnormal . eGFR If Am (test >120 See_Comment [A utomated message] code = 47496206) The system which generated this result transmit gregroy reference range : >=90 mL/min/1.7 3 m2. The reference r sravanthi was not used to interpret this result as normal/abnormal . Lab Interpretation (test Abnormal code = 39206-7) [facility] P[facility] docked [id number] 20:32:51 Test Item Value Reference Range Interpretation Comments Creatinine POC (test 0.5 mg/dL 0.6-1.3 L Physici an Notified code = 37330718) eGFR If non- Am >120 See_Comment [Aut omated message] (test code = 68705110) The s ystem which generated this result transmit gregory reference range : >=90 mL/min/1.7 3 m2. The reference r sravanthi was not used to interpret this result as normal/abnormal . eGFR If Am (test >120 See_Comment [A utomated message] code = 32151846) The system which generated this result transmit gregory reference range : >=90 mL/min/1.7 3 m2. The reference r sravanthi was not used to interpret this result as normal/abnormal . Lab Interpretation (test Abnormal code = 90944-6) [facility] P[facility] docked [id number] 20:32:51 Test Item Value Reference Range Interpretation Comments Creatinine POC (test 0.5 mg/dL 0.6-1.3 L Physici an Notified code = 82579812) eGFR If non- Am >120 See_Comment [Aut omated message] (test code = 66955635) The s ystem which generated this result transmit gregory reference range : >=90 mL/min/1.7 3 m2. The reference r sravanthi was not used to interpret this result as normal/abnormal . eGFR If Am (test >120 See_Comment [A utomated message] code = 00833151) The system which generated this result transmit gregory reference range : >=90 mL/min/1.7 3 m2. The reference r sravanthi was not used to interpret this result as normal/abnormal . Lab Interpretation (test Abnormal code = 01208-3) [facility] CREATININE POC docked [id number] 20:32:51 Test Item Value Reference Range Interpretation Comments Creatinine POC (test 0.5 mg/dL 0.6-1.3 L Physici an Notified code = 38723199) eGFR If non- Am >120 See_Comment [Aut omated message] (test code = 98775534) The s ystem which generated this result transmit gregory reference range : >=90 mL/min/1.7 3 m2. The reference r sravanthi was not used to interpret this result as normal/abnormal . eGFR If Am (test >120 See_Comment [A utomated message] code = 52555347) The system which generated this result transmit gregory reference range : >=90 mL/min/1.7 3 m2. The reference r sravanthi was not used to interpret this result as normal/abnormal . Lab Interpretation (test Abnormal code = 09614-0) [facility] CREATININE POC docked [id number] 20:32:51 Test Item Value Reference Range Interpretation Comments Creatinine POC (test 0.5 mg/dL 0.6-1.3 L Physici an Notified code = 55416849) eGFR If non- Am >120 See_Comment [Aut omated message] (test code = 68136566) The s ystem which generated this result transmit gregory reference range : >=90 mL/min/1.7 3 m2. The reference r sravanthi was not used to interpret this result as normal/abnormal . eGFR If Am (test >120 See_Comment [A utomated message] code = 19625351) The system which generated this result transmit gregory reference range : >=90 mL/min/1.7 3 m2. The reference r sravanthi was not used to interpret this result as normal/abnormal . Lab Interpretation (test Abnormal code = 00069-7) [facility] CREATININE POC docked [id number] 20:32:51 Test Item Value Reference Range Interpretation Comments Creatinine POC (test 0.5 mg/dL 0.6-1.3 L Physici an Notified code = 64478816) eGFR If non- Am >120 See_Comment [Aut omated message] (test code = 65832623) The s ystem which generated this result transmit gregory reference range : >=90 mL/min/1.7 3 m2. The reference r sravanthi was not used to interpret this result as normal/abnormal . eGFR If Am (test >120 See_Comment [A utomated message] code = 52882010) The system which generated this result transmit gregory reference range : >=90 mL/min/1.7 3 m2. The reference r sravanthi was not used to interpret this result as normal/abnormal . Lab Interpretation (test Abnormal code = 15545-1) [id number]31 Test Item Value Reference Interpretation Comments [...] valves. Lab Interpretation Abnormal (test code = 92226-0) [facility]/[id number] 20:34:31 Test Item Value Reference Interpretation Comments [...] valves. Lab Interpretation Abnormal (test code = 19257-0) [facility]/[id number] 20:34:31 Test Item Value Reference Interpretation Comments [...] valves. Lab Interpretation Abnormal (test code = 01885-8) [id number]:34:31 Test Item Value Reference Interpretation Comments [...] valves. Lab Interpretation Abnormal (test code = 91317-3) [facility][id number] 20:34:31 Test Item Value Reference Interpretation Comments [...] valves. Lab Interpretation Abnormal (test code = 55396-1) [facility][id number] 20:34:31 Test Item Value Reference Interpretation Comments [...] valves. Lab Interpretation Abnormal (test code = 17798-6) [facility][id number] 20:34:31 Test Item Value Reference Interpretation Comments [...] valves. Lab Interpretation Abnormal (test code = 86966-1) [facility][id number] 20:34:31 Test Item Value Reference Interpretation Comments [...] valves. Lab Interpretation Abnormal (test code = 99413-5) [facility][id number] 20:34:31 Test Item Value Reference Interpretation Comments [...] valves. Lab Interpretation Abnormal (test code = 50067-4) [facility]/[id number] 20:34:31 Test Item Value Reference Range Interpretation Comments PROTIME (BEAKER) 12.2 seconds 9.3-12.0 H Final Infor mation (test code = 759) (Auto Outp ut) INR (BEAKER) (test 1.11 See_Comment Final Inf ormation code = 370) (Auto Output) [Automated mess age] The system [employer] generated this result transmitted ref erence range: <=5.90. The reference range was not used to int erpret this result as normal/abnormal . RECOMMENDED COUMADIN/WARFARIN INR THERAPY RANGESSTANDARD DOSE: 2.0 - 3.0 Includes: PROPHYLAXIS for venous thrombosis, systemic embolization; TREATMENT for venous thrombosis and/or pulmonary embolus.HIGH RISK: Target INR is 2.5-3.5 for patients with mechanical heart valves.CT, [id number] 20:32:00Unlisted Reason for Exam - Click Yes and Enter Reason Below->NoIs this for enterography?->NoWill this procedure require oral contrast?->No [facility] 1985 Sex: MFINAL REPORT TECHNIQUE: [...] acute intra-abdominal or intrapelvic abnormality.. Signed: Mary Khouryeport Verified Date/Time: 07/30/2021 20:32:18 Reading Location: [address] Reading Room Basic metabolic panel (Na, K+, Cl, CO2, Glu, Ca, BUN, Cr)2021-07-30 20:00:22 Test Item Value Reference Range Interpretation Comments Sodium (test code = 135 meq/L 089-379 8399-2) Potassium (test code = 4.2 meq/L 3.6-5.5 2823-3) Chloride (test code = 103 meq/L 98-106 2075-0) CO2 (test code = 24 meq/L 20-29 8-9) BUN (test code = 8 mg/dL 10-26 L 3094-0) Creatinine (test code 0.75 mg/dL 0.50-1.20 = 2160-0) Glucose (test code = 77 mg/dL 70-110 2345-7) Calcium (test code = 9.1 mg/dL 8.5-10.5 89200-7) EGFR (test code = 118 mL/min/1.73 [place] [address]-5) NOT ACCURATE CREATININE CLEARANCE IN PREDICTING GLOMERULAR FILTRATION RATE . ESTIMATED GFR I S NOT APPLICABLE FOR DIALYSIS PATIENTS. BRISA (test code = BRISA) [employer] ID - [id number] r ID - [id number] r ID - [id number] r ID - [id number] r ID - [id number] r ID - [id number] r ID - [id number] r ID - [id number] r ID - [id number] r ID - [id number] r ID - [id number] r ID - [id number] Lab Interpretation Abnormal (test code = 63080-0) [facility] metabolic panel (Na, K+, Cl, CO2, Glu, Ca, BUN, Cr)2021-07-30 20:00:22 Test Item Value Reference Range Interpretation Comments Sodium (test code = 135 meq/L 462-077 6821-2) Potassium (test code = 4.2 meq/L 3.6-5.5 2823-3) Chloride (test code = 103 meq/L 98-106 2075-0) CO2 (test code = 24 meq/L 20-29 2028-9) BUN (test code = 8 mg/dL 10-26 L 3094-0) Creatinine (test code 0.75 mg/dL 0.50-1.20 = 2160-0) Glucose (test code = 77 mg/dL 70-110 2345-7) Calcium (test code = 9.1 mg/dL 8.5-10.5 55963-8) EGFR (test code = 118 mL/min/1.73 [place] [address]-5) NOT ACCURATE CREATININE CLEARANCE IN PREDICTING GLOMERULAR FILTRATION RATE . ESTIMATED GFR I S NOT APPLICABLE FOR DIALYSIS PATIENTS. BRISA (test code = BRISA) [employer] ID - [id number] r ID - [id number] r ID - [id number] r ID - [id number] r ID - [id number] r ID - [id number] r ID - [id number] r ID - [id number] r ID - [id number] r ID - [id number] r ID - [id number] r ID - [id number] Lab Interpretation Abnormal (test code = 61615-7) [facility] metabolic panel (Na, K+, Cl, CO2, Glu, Ca, BUN, Cr)2021-07-30 20:00:22 Test Item Value Reference Range Interpretation Comments Sodium (test code = 135 meq/L 235-932 1150-2) Potassium (test code = 4.2 meq/L 3.6-5.5 2823-3) Chloride (test code = 103 meq/L 98-106 2075-0) CO2 (test code = 24 meq/L -2028-03) BUN (test code = 8 mg/dL 10-26 L 3094-0) Creatinine (test code 0.75 mg/dL 0.50-1.20 = 2160-0) Glucose (test code = 77 mg/dL 70-110 2345-7) Calcium (test code = 9.1 mg/dL 8.5-10.5 40643-6) EGFR (test code = 118 mL/min/1.73 [place] [address]-4) NOT ACCURATE CREATININE CLEARANCE IN PREDICTING GLOMERULAR FILTRATION RATE . ESTIMATED GFR I S NOT APPLICABLE FOR DIALYSIS PATIENTS. BRISA (test code = BRISA) [employer] ID - [id number] r ID - [id number] r ID - [id number] r ID - [id number] r ID - [id number] r ID - [id number] r ID - [id number] r ID - [id number] r ID - [id number] r ID - [id number] r ID - [id number] r ID - [id number] Lab Interpretation Abnormal (test code = 24028-1) [facility] (Na, K+, Cl, CO2, Glu, Ca, BUN, Cr)2021-07-30 20:00:22 Test Item Value Reference Range Interpretation Comments Sodium (test code = 135 meq/L 044-129 2200-2) Potassium (test code = 4.2 meq/L 3.6-5.5 2823-3) Chloride (test code = 103 meq/L 98-106 2075-0) CO2 (test code = 24 meq/L 2028-03) BUN (test code = 8 mg/dL 10-26 L 3094-0) Creatinine (test code 0.75 mg/dL 0.50-1.20 = 2160-0) Glucose (test code = 77 mg/dL 70-110 2345-7) Calcium (test code = 9.1 mg/dL 8.5-10.5 88872-2) EGFR (test code = 118 mL/min/1.73 [place] [address]-9) NOT ACCURATE CREATININE CLEARANCE IN PREDICTING GLOMERULAR FILTRATION RATE . ESTIMATED GFR I S NOT APPLICABLE FOR DIALYSIS PATIENTS. BRISA (test code = BRISA) [employer] ID - [id number] r ID - [id number] r ID - [id number] r ID - [id number] r ID - [id number] r ID - [id number] r ID - [id number] r ID - [id number] r ID - [id number] r ID - [id number] r ID - [id number] r ID - [id number] Lab Interpretation Abnormal (test code = 61613-7) [facility] (Na, K+, Cl, CO2, Glu, Ca, BUN, Cr)2021-07-30 20:00:22 Test Item Value Reference Range Interpretation Comments Sodium (test code = 135 meq/L 727-851 2926-2) Potassium (test code = 4.2 meq/L 3.6-5.5 2823-3) Chloride (test code = 103 meq/L 98-106 5-0) CO2 (test code = 24 meq/L 20-29 2027-9) BUN (test code = 8 mg/dL 10-26 L 3094-0) Creatinine (test code 0.75 mg/dL 0.50-1.20 = 2160-0) Glucose (test code = 77 mg/dL 70-110 2345-7) Calcium (test code = 9.1 mg/dL 8.5-10.5 29727-4) EGFR (test code = 118 mL/min/1.73 [place] [address]-8) NOT ACCURATE CREATININE CLEARANCE IN PREDICTING GLOMERULAR FILTRATION RATE . ESTIMATED GFR I S NOT APPLICABLE FOR DIALYSIS PATIENTS. BRISA (test code = BRISA) [employer] ID - [id number] r ID - [id number] r ID - [id number] r ID - [id number] r ID - [id number] r ID - [id number] r ID - [id number] r ID - [id number] r ID - [id number] r ID - [id number] r ID - [id number] r ID - [id number] Lab Interpretation Abnormal (test code = 59451-6) [facility] metabolic panel (Na, K+, Cl, CO2, Glu, Ca, BUN, Cr)2021-07-30 20:00:22 Test Item Value Reference Range Interpretation Comments Sodium (test code = 135 meq/L 457-702 4414-2) Potassium (test code = 4.2 meq/L 3.6-5.5 2823-3) Chloride (test code = 103 meq/L 98-106 2075-0) CO2 (test code = 24 meq/L 20-29 2028-9) BUN (test code = 8 mg/dL 10-26 L 3094-0) Creatinine (test code 0.75 mg/dL 0.50-1.20 = 2160-0) Glucose (test code = 77 mg/dL 70-110 2345-7) Calcium (test code = 9.1 mg/dL 8.5-10.5 41652-7) EGFR (test code = 118 mL/min/1.[place] [address]-0) NOT ACCURATE CREATININE CLEARANCE IN PREDICTING GLOMERULAR FILTRATION RATE . ESTIMATED GFR I S NOT APPLICABLE FOR DIALYSIS PATIENTS. BRISA (test code = BRISA) [employer] ID - [id number] r ID - [id number] r ID - [id number] r ID - [id number] r ID - [id number] r ID - [id number] r ID - [id number] r ID - [id number] r ID - [id number] r ID - [id number] r ID - [id number] r ID - [id number] Lab Interpretation Abnormal (test code = 88072-0) [facility] metabolic panel (Na, K+, Cl, CO2, Glu, Ca, BUN, Cr)2021-07-30 20:00:22 Test Item Value Reference Range Interpretation Comments Sodium (test code = 135 meq/L 335-320 4034-2) Potassium (test code = 4.2 meq/L 3.6-5.5 2823-3) Chloride (test code = 103 meq/L 98-106 5-0) CO2 (test code = 24 meq/L 2028-03) BUN (test code = 8 mg/dL 10-26 L 3094-0) Creatinine (test code 0.75 mg/dL 0.50-1.20 = 2160-0) Glucose (test code = 77 mg/dL 70-110 2345-7) Calcium (test code = 9.1 mg/dL 8.5-10.5 17562-9) EGFR (test code = 118 mL/min/1.73 sq [place] [address]-2) NOT ACCURATE CREATININE CLEARANCE IN PREDICTING GLOMERULAR FILTRATION RATE . ESTIMATED GFR I S NOT APPLICABLE FOR DIALYSIS PATIENTS. BRISA (test code = BRISA) [employer] ID - [id number] r ID - [id number] r ID - [id number] r ID - [id number] r ID - [id number] r ID - [id number] r ID - [id number] r ID - [id number] r ID - [id number] r ID - [id number] r ID - [id number] r ID - [id number] Lab Interpretation Abnormal (test code = 73864-6) [facility] (Na, K+, Cl, CO2, Glu, Ca, BUN, Cr)2021-07-30 20:00:22 Test Item Value Reference Range Interpretation Comments Sodium (test code = 135 meq/L 942-547 9042-2) Potassium (test code = 4.2 meq/L 3.6-5.5 2823-3) Chloride (test code = 103 meq/L 98-106 5-0) CO2 (test code = 24 meq/L 2028-03) BUN (test code = 8 mg/dL 10-26 L 3094-0) Creatinine (test code 0.75 mg/dL 0.50-1.20 = 2160-0) Glucose (test code = 77 mg/dL 70-110 2345-7) Calcium (test code = 9.1 mg/dL 8.5-10.5 53172-6) EGFR (test code = 118 mL/min/1.73 [place] [address]-2) NOT ACCURATE CREATININE CLEARANCE IN PREDICTING GLOMERULAR FILTRATION RATE . ESTIMATED GFR I S NOT APPLICABLE FOR DIALYSIS PATIENTS. BRISA (test code = BRISA) [employer] ID - [id number] r ID - [id number] r ID - [id number] r ID - [id number] r ID - [id number] r ID - [id number] r ID - [id number] r ID - [id number] r ID - [id number] r ID - [id number] r ID - [id number] r ID - [id number] Lab Interpretation Abnormal (test code = 43010-3) [facility] (Na, K+, Cl, CO2, Glu, Ca, BUN, Cr)2021-07-30 20:00:22 Test Item Value Reference Range Interpretation Comments Sodium (test code = 135 meq/L 465-969 7331-2) Potassium (test code = 4.2 meq/L 3.6-5.5 2823-3) Chloride (test code = 103 meq/L 98-106 5-0) CO2 (test code = 24 meq/L 20-29 2027-9) BUN (test code = 8 mg/dL 10-26 L 3094-0) Creatinine (test code 0.75 mg/dL 0.50-1.20 = 2160-0) Glucose (test code = 77 mg/dL 70-110 2345-7) Calcium (test code = 9.1 mg/dL 8.5-10.5 18928-2) EGFR (test code = 118 mL/min/1.[place] [address]-3) NOT ACCURATE CREATININE CLEARANCE IN PREDICTING GLOMERULAR FILTRATION RATE . ESTIMATED GFR I S NOT APPLICABLE FOR DIALYSIS PATIENTS. BRISA (test code = BRISA) [employer] ID - [id number] r ID - [id number] r ID - [id number] r ID - [id number] r ID - [id number] r ID - [id number] r ID - [id number] r ID - [id number] r ID - [id number] r ID - [id number] r ID - [id number] r ID - [id number] Lab Interpretation Abnormal (test code = 68344-6) [facility] [id number] 20:00:22 Test Item Value Reference Range Interpretation [...] S NOT APPLICABLE FOR DIALYSIS PATIEN TS. [employer] ID - [id number] ID - [id number] ID - [id number] ID - [id number] ID - [id number] ID - [id number] ID - [id number] ID - [id number] ID - [id number] ID - [id number] ID - [id number] ID - [id number] with platelet count + automated [id number] 19:43:00 Test Item Value Reference Range Interpretation Comments WBC (test code = 6690-2) 6.2 See_Comment [A utomated message] The system [employer] generated this result transmitted ref erence range: 4.0 - 10 .0 K/L. The refe rence range was not u sed to interpret this result as normal/abnor mal. RBC (test code = 789-8) 3.93 See_Comment L [Au tomated message] The system [employer] generated this result transmitted ref erence range: 4.20 - 5 .80 M/L. The refe rence range was not u sed to interpret this result as normal/abnor mal. MCHC (test code = 786-4) 34.2 See_Comment L [A utomated message] The system [employer] generated this result transmitted ref erence range: [...] See_Comment [Aut omated message] 777-3) The system [employer] generated this result transmitted ref erence range: 150 - 43 0 K/CU MM. The referen ce range was not u sed to interpret this result as normal/abnor mal. MPV (test code = 8.7 fL 6.0-11.5 81495-9) nRBC (test code = 413) 0 See_Comment [Aut omated message] The system [employer] generated this result transmitted ref erence range: [...] See_Comment [Aut omated message] 670) The system [employer] generated this result transmitted ref erence range: 1.80 - 8 .00 K/L. The refe rence range was not u sed to interpret this result as normal/abnor mal. # Lymphs (test code = 2.15 See_Comment [Auto mated message] 414) The system [employer] generated this result transmitted ref erence range: 1.48 - 4 .50 K/L. The refe rence range was not u sed to interpret this result as normal/abnor mal. # Monos (test code = 0.49 See_Comment [Autom ated message] 415) The system [employer] generated this result transmitted ref erence range: 0.00 - 1 .30 K/L. The refe rence range was not u sed to interpret this result as normal/abnor mal. # Eos (test code = 416) 0.51 See_Comment H [Au tomated message] The system [employer] generated this result transmitted ref erence range: 0.00 - 0 .50 K/L. The refe rence range was not u sed to interpret this result as normal/abnor mal. # Baso (test code = 417) 0.05 See_Comment [A utomated message] The system [employer] generated this result transmitted ref erence range: 0.00 - 0 .20 K/L. The refe rence range was not u sed to interpret this result as normal/abnor mal. Immature 0 % 0-0 Granulocytes-Relative (test code = 2801) Lab Interpretation (test Abnormal code = 22609-4) [facility] with platelet count + automated [id number] 19:43:00 Test Item Value Reference Range Interpretation Comments WBC (test code = 6690-2) 6.2 See_Comment [A utomated message] The system [employer] generated this result transmitted ref erence range: 4.0 - 10 .0 K/L. The refe rence range was not u sed to interpret this result as normal/abnor mal. RBC (test code = 789-8) 3.93 See_Comment L [Au tomated message] The system [employer] generated this result transmitted ref erence range: 4.20 - 5 .80 M/L. The refe rence range was not u sed to interpret this result as normal/abnor mal. MCHC (test code = 786-4) 34.2 See_Comment L [A utomated message] The system [employer] generated this result transmitted ref erence range: [...] See_Comment [Aut omated message] 777-3) The system [employer] generated this result transmitted ref erence range: 150 - 43 0 K/CU MM. The referen ce range was not u sed to interpret this result as normal/abnor mal. MPV (test code = 8.7 fL 6.0-11.5 52018-3) nRBC (test code = 413) 0 See_Comment [Aut omated message] The system [employer] generated this result transmitted ref erence range: [...] See_Comment [Aut omated message] 670) The system [employer] generated this result transmitted ref erence range: 1.80 - 8 .00 K/L. The refe rence range was not u sed to interpret this result as normal/abnor mal. # Lymphs (test code = 2.15 See_Comment [Auto mated message] 414) The system [employer] generated this result transmitted ref erence range: 1.48 - 4 .50 K/L. The refe rence range was not u sed to interpret this result as normal/abnor mal. # Monos (test code = 0.49 See_Comment [Autom ated message] 415) The system [employer] generated this result transmitted ref erence range: 0.00 - 1 .30 K/L. The refe rence range was not u sed to interpret this result as normal/abnor mal. # Eos (test code = 416) 0.51 See_Comment H [Au tomated message] The system [employer] generated this result transmitted ref erence range: 0.00 - 0 .50 K/L. The refe rence range was not u sed to interpret this result as normal/abnor mal. # Baso (test code = 417) 0.05 See_Comment [A utomated message] The system [employer] generated this result transmitted ref erence range: 0.00 - 0 .20 K/L. The refe rence range was not u sed to interpret this result as normal/abnor mal. Immature 0 % 0-0 Granulocytes-Relative (test code = 2801) Lab Interpretation (test Abnormal code = 81765-9) [facility] with platelet count + automated [id number] 19:43:00 Test Item Value Reference Range Interpretation Comments WBC (test code = 6690-2) 6.2 See_Comment [A utomated message] The system [employer] generated this result transmitted ref erence range: 4.0 - 10 .0 K/L. The refe rence range was not u sed to interpret this result as normal/abnor mal. RBC (test code = 789-8) 3.93 See_Comment L [Au tomated message] The system [employer] generated this result transmitted ref erence range: 4.20 - 5 .80 M/L. The refe rence range was not u sed to interpret this result as normal/abnor mal. MCHC (test code = 786-4) 34.2 See_Comment L [A utomated message] The system [employer] generated this result transmitted ref erence range: [...] See_Comment [Aut omated message] 777-3) The system [employer] generated this result transmitted ref erence range: 150 - 43 0 K/CU MM. The referen ce range was not u sed to interpret this result as normal/abnor mal. MPV (test code = 8.7 fL 6.0-11.5 90482-4) nRBC (test code = 413) 0 See_Comment [Aut omated message] The system [employer] generated this result transmitted ref erence range: [...] See_Comment [Aut omated message] 670) The system [employer] generated this result transmitted ref erence range: 1.80 - 8 .00 K/L. The refe rence range was not u sed to interpret this result as normal/abnor mal. # Lymphs (test code = 2.15 See_Comment [Auto mated message] 414) The system [employer] generated this result transmitted ref erence range: 1.48 - 4 .50 K/L. The refe rence range was not u sed to interpret this result as normal/abnor mal. # Monos (test code = 0.49 See_Comment [Autom ated message] 415) The system [employer] generated this result transmitted ref erence range: 0.00 - 1 .30 K/L. The refe rence range was not u sed to interpret this result as normal/abnor mal. # Eos (test code = 416) 0.51 See_Comment H [Au tomated message] The system [employer] generated this result transmitted ref erence range: 0.00 - 0 .50 K/L. The refe rence range was not u sed to interpret this result as normal/abnor mal. # Baso (test code = 417) 0.05 See_Comment [A utomated message] The system [employer] generated this result transmitted ref erence range: 0.00 - 0 .20 K/L. The refe rence range was not u sed to interpret this result as normal/abnor mal. Immature 0 % 0-0 Granulocytes-Relative (test code = 2801) Lab Interpretation (test Abnormal code = 27027-6) [facility] with platelet count + automated [id number] 19:43:00 Test Item Value Reference Range Interpretation Comments WBC (test code = 6690-2) 6.2 See_Comment [A utomated message] The system [employer] generated this result transmitted ref erence range: 4.0 - 10 .0 K/L. The refe rence range was not u sed to interpret this result as normal/abnor mal. RBC (test code = 789-8) 3.93 See_Comment L [Au tomated message] The system [employer] generated this result transmitted ref erence range: 4.20 - 5 .80 M/L. The refe rence range was not u sed to interpret this result as normal/abnor mal. MCHC (test code = 786-4) 34.2 See_Comment L [A utomated message] The system [employer] generated this result transmitted ref erence range: [...] code = 308 See_Comment [Aut omated message] 247-3) The system [employer] generated this result transmitted ref erence range: 150 - 43 0 K/CU MM. The referen ce range was not u sed to interpret this result as normal/abnor mal. MPV (test code = 8.7 fL 6.0-11.5 41505-3) nRBC (test code = 413) 0 See_Comment [Aut omated message] The system [employer] generated this result transmitted ref erence range: [...] See_Comment [Aut omated message] 670) The system [employer] generated this result transmitted ref erence range: 1.80 - 8 .00 K/L. The refe rence range was not u sed to interpret this result as normal/abnor mal. # Lymphs (test code = 2.15 See_Comment [Auto mated message] 414) The system [employer] generated this result transmitted ref erence range: 1.48 - 4 .50 K/L. The refe rence range was not u sed to interpret this result as normal/abnor mal. # Monos (test code = 0.49 See_Comment [Autom ated message] 415) The system [employer] generated this result transmitted ref erence range: 0.00 - 1 .30 K/L. The refe rence range was not u sed to interpret this result as normal/abnor mal. # Eos (test code = 416) 0.51 See_Comment H [Au tomated message] The system [employer] generated this result transmitted ref erence range: 0.00 - 0 .50 K/L. The refe rence range was not u sed to interpret this result as normal/abnor mal. # Baso (test code = 417) 0.05 See_Comment [A utomated message] The system [employer] generated this result transmitted ref erence range: 0.00 - 0 .20 K/L. The refe rence range was not u sed to interpret this result as normal/abnor mal. Immature 0 % 0-0 Granulocytes-Relative (test code = 2801) Lab Interpretation (test Abnormal code = 39325-4) [facility] + [facility] [id number] 19:43:00 Test Item Value Reference Range Interpretation Comments WBC (test code = 6690-2) 6.2 See_Comment [A utomated message] The system [employer] generated this result transmitted ref erence range: 4.0 - 10 .0 K/L. The refe rence range was not u sed to interpret this result as normal/abnor mal. RBC (test code = 789-8) 3.93 See_Comment L [Au tomated message] The system [employer] generated this result transmitted ref erence range: 4.20 - 5 .80 M/L. The refe rence range was not u sed to interpret this result as normal/abnor mal. MCHC (test code = 786-4) 34.2 See_Comment L [A utomated message] The system [employer] generated this result transmitted ref erence range: [...] See_Comment [Aut omated message] 777-3) The system [employer] generated this result transmitted ref erence range: 150 - 43 0 K/CU MM. The referen ce range was not u sed to interpret this result as normal/abnor mal. MPV (test code = 8.7 fL 6.0-11.5 37364-9) nRBC (test code = 413) 0 See_Comment [Aut omated message] The system [employer] generated this result transmitted ref erence range: [...] See_Comment [Aut omated message] 670) The system [employer] generated this result transmitted ref erence range: 1.80 - 8 .00 K/L. The refe rence range was not u sed to interpret this result as normal/abnor mal. # Lymphs (test code = 2.15 See_Comment [Auto mated message] 414) The system [employer] generated this result transmitted ref erence range: 1.48 - 4 .50 K/L. The refe rence range was not u sed to interpret this result as normal/abnor mal. # Monos (test code = 0.49 See_Comment [Autom ated message] 415) The system [employer] generated this result transmitted ref erence range: 0.00 - 1 .30 K/L. The refe rence range was not u sed to interpret this result as normal/abnor mal. # Eos (test code = 416) 0.51 See_Comment H [Au tomated message] The system [employer] generated this result transmitted ref erence range: 0.00 - 0 .50 K/L. The refe rence range was not u sed to interpret this result as normal/abnor mal. # Baso (test code = 417) 0.05 See_Comment [A utomated message] The system [employer] generated this result transmitted ref erence range: 0.00 - 0 .20 K/L. The refe rence range was not u sed to interpret this result as normal/abnor mal. Immature 0 % 0-0 Granulocytes-Relative (test code = 2801) Lab Interpretation (test Abnormal code = 28191-2) [facility] with platelet count + automated [id number] 19:43:00 Test Item Value Reference Range Interpretation Comments WBC (test code = 6690-2) 6.2 See_Comment [A utomated message] The system [employer] generated this result transmitted ref erence range: 4.0 - 10 .0 K/L. The refe rence range was not u sed to interpret this result as normal/abnor mal. RBC (test code = 789-8) 3.93 See_Comment L [Au tomated message] The system [employer] generated this result transmitted ref erence range: 4.20 - 5 .80 M/L. The refe rence range was not u sed to interpret this result as normal/abnor mal. MCHC (test code = 786-4) 34.2 See_Comment L [A utomated message] The system [employer] generated this result transmitted ref erence range: [...] See_Comment [Aut omated message] 777-3) The system [employer] generated this result transmitted ref erence range: 150 - 43 0 K/CU MM. The referen ce range was not u sed to interpret this result as normal/abnor mal. MPV (test code = 8.7 fL 6.0-11.5 20103-8) nRBC (test code = 413) 0 See_Comment [Aut omated message] The system [employer] generated this result transmitted ref erence range: [...] See_Comment [Aut omated message] 670) The system [employer] generated this result transmitted ref erence range: 1.80 - 8 .00 K/L. The refe rence range was not u sed to interpret this result as normal/abnor mal. # Lymphs (test code = 2.15 See_Comment [Auto mated message] 414) The system [employer] generated this result transmitted ref erence range: 1.48 - 4 .50 K/L. The refe rence range was not u sed to interpret this result as normal/abnor mal. # Monos (test code = 0.49 See_Comment [Autom ated message] 415) The system [employer] generated this result transmitted ref erence range: 0.00 - 1 .30 K/L. The refe rence range was not u sed to interpret this result as normal/abnor mal. # Eos (test code = 416) 0.51 See_Comment H [Au tomated message] The system [employer] generated this result transmitted ref erence range: 0.00 - 0 .50 K/L. The refe rence range was not u sed to interpret this result as normal/abnor mal. # Baso (test code = 417) 0.05 See_Comment [A utomated message] The system [employer] generated this result transmitted ref erence range: 0.00 - 0 .20 K/L. The refe rence range was not u sed to interpret this result as normal/abnor mal. Immature 0 % 0-0 Granulocytes-Relative (test code = 2801) Lab Interpretation (test Abnormal code = 75638-2) [facility] with platelet count + automated [id number] 19:43:00 Test Item Value Reference Range Interpretation Comments WBC (test code = 6690-2) 6.2 See_Comment [A utomated message] The system [employer] generated this result transmitted ref erence range: 4.0 - 10 .0 K/L. The refe rence range was not u sed to interpret this result as normal/abnor mal. RBC (test code = 789-8) 3.93 See_Comment L [Au tomated message] The system [employer] generated this result transmitted ref erence range: 4.20 - 5 .80 M/L. The refe rence range was not u sed to interpret this result as normal/abnor mal. MCHC (test code = 786-4) 34.2 See_Comment L [A utomated message] The system [employer] generated this result transmitted ref erence range: [...] See_Comment [Aut omated message] 777-3) The system [employer] generated this result transmitted ref erence range: 150 - 43 0 K/CU MM. The referen ce range was not u sed to interpret this result as normal/abnor mal. MPV (test code = 8.7 fL 6.0-11.5 56547-0) nRBC (test code = 413) 0 See_Comment [Aut omated message] The system [employer] generated this result transmitted ref erence range: [...] See_Comment [Aut omated message] 670) The system [employer] generated this result transmitted ref erence range: 1.80 - 8 .00 K/L. The refe rence range was not u sed to interpret this result as normal/abnor mal. # Lymphs (test code = 2.15 See_Comment [Auto mated message] 414) The system [employer] generated this result transmitted ref erence range: 1.48 - 4 .50 K/L. The refe rence range was not u sed to interpret this result as normal/abnor mal. # Monos (test code = 0.49 See_Comment [Autom ated message] 415) The system [employer] generated this result transmitted ref erence range: 0.00 - 1 .30 K/L. The refe rence range was not u sed to interpret this result as normal/abnor mal. # Eos (test code = 416) 0.51 See_Comment H [Au tomated message] The system [employer] generated this result transmitted ref erence range: 0.00 - 0 .50 K/L. The refe rence range was not u sed to interpret this result as normal/abnor mal. # Baso (test code = 417) 0.05 See_Comment [A utomated message] The system [employer] generated this result transmitted ref erence range: 0.00 - 0 .20 K/L. The refe rence range was not u sed to interpret this result as normal/abnor mal. Immature 0 % 0-0 Granulocytes-Relative (test code = 2801) Lab Interpretation (test Abnormal code = 51499-1) [facility] with platelet count + automated [id number] 19:43:00 Test Item Value Reference Range Interpretation Comments WBC (test code = 6690-2) 6.2 See_Comment [A utomated message] The system [employer] generated this result transmitted ref erence range: 4.0 - 10 .0 K/L. The refe rence range was not u sed to interpret this result as normal/abnor mal. RBC (test code = 789-8) 3.93 See_Comment L [Au tomated message] The system [employer] generated this result transmitted ref erence range: 4.20 - 5 .80 M/L. The refe rence range was not u sed to interpret this result as normal/abnor mal. MCHC (test code = 786-4) 34.2 See_Comment L [A utomated message] The system [employer] generated this result transmitted ref erence range: [...] See_Comment [Aut omated message] 777-3) The system [employer] generated this result transmitted ref erence range: 150 - 43 0 K/CU MM. The referen ce range was not u sed to interpret this result as normal/abnor mal. MPV (test code = 8.7 fL 6.0-11.5 63623-2) nRBC (test code = 413) 0 See_Comment [Aut omated message] The system [employer] generated this result transmitted ref erence range: [...] See_Comment [Aut omated message] 670) The system [employer] generated this result transmitted ref erence range: 1.80 - 8 .00 K/L. The refe rence range was not u sed to interpret this result as normal/abnor mal. # Lymphs (test code = 2.15 See_Comment [Auto mated message] 414) The system [employer] generated this result transmitted ref erence range: 1.48 - 4 .50 K/L. The refe rence range was not u sed to interpret this result as normal/abnor mal. # Monos (test code = 0.49 See_Comment [Autom ated message] 415) The system [employer] generated this result transmitted ref erence range: 0.00 - 1 .30 K/L. The refe rence range was not u sed to interpret this result as normal/abnor mal. # Eos (test code = 416) 0.51 See_Comment H [Au tomated message] The system [employer] generated this result transmitted ref erence range: 0.00 - 0 .50 K/L. The refe rence range was not u sed to interpret this result as normal/abnor mal. # Baso (test code = 417) 0.05 See_Comment [A utomated message] The system [employer] generated this result transmitted ref erence range: 0.00 - 0 .20 K/L. The refe rence range was not u sed to interpret this result as normal/abnor mal. Immature 0 % 0-0 Granulocytes-Relative (test code = 2801) Lab Interpretation (test Abnormal code = 90876-6) [facility] with platelet count + automated [id number] 19:43:00 Test Item Value Reference Range Interpretation Comments WBC (test code = 6690-2) 6.2 See_Comment [A utomated message] The system [employer] generated this result transmitted ref erence range: 4.0 - 10 .0 K/L. The refe rence range was not u sed to interpret this result as normal/abnor mal. RBC (test code = 789-8) 3.93 See_Comment L [Au tomated message] The system [employer] generated this result transmitted ref erence range: 4.20 - 5 .80 M/L. The refe rence range was not u sed to interpret this result as normal/abnor mal. MCHC (test code = 786-4) 34.2 See_Comment L [A utomated message] The system [employer] generated this result transmitted ref erence range: [...] code = 308 See_Comment [Aut omated message] 367-3) The system [employer] generated this result transmitted ref erence range: 150 - 43 0 K/CU MM. The referen ce range was not u sed to interpret this result as normal/abnor mal. MPV (test code = 8.7 fL 6.0-11.5 59817-2) nRBC (test code = 413) 0 See_Comment [Aut omated message] The system [employer] generated this result transmitted ref erence range: [...] See_Comment [Aut omated message] 670) The system [employer] generated this result transmitted ref erence range: 1.80 - 8 .00 K/L. The refe rence range was not u sed to interpret this result as normal/abnor mal. # Lymphs (test code = 2.15 See_Comment [Auto mated message] 414) The system [employer] generated this result transmitted ref erence range: 1.48 - 4 .50 K/L. The refe rence range was not u sed to interpret this result as normal/abnor mal. # Monos (test code = 0.49 See_Comment [Autom ated message] 415) The system [employer] generated this result transmitted ref erence range: 0.00 - 1 .30 K/L. The refe rence range was not u sed to interpret this result as normal/abnor mal. # Eos (test code = 416) 0.51 See_Comment H [Au tomated message] The system [employer] generated this result transmitted ref erence range: 0.00 - 0 .50 K/L. The refe rence range was not u sed to interpret this result as normal/abnor mal. # Baso (test code = 417) 0.05 See_Comment [A utomated message] The system [employer] generated this result transmitted ref erence range: 0.00 - 0 .20 K/L. The refe rence range was not u sed to interpret this result as normal/abnor mal. Immature 0 % 0-0 Granulocytes-Relative (test code = 2801) Lab Interpretation (test Abnormal code = 44979-1) [facility] W/PLT COUNT & AUTO [id number] 19:43:00 Test Item Value Reference Range Interpretation [...] 417) IMMATURE GRANULOCYTES-RELATIVE 0 % 0-0 PERCENT (TRIPPAKER) (test code = 2801) SURGICAL [id number] 07:40:00 RUN DATE: 09/19/18 [facility] *LIVE* PAGE 1 RUN TIME: 740 Specimen Inquiry RUN USER: INTERFACE --PATIENT: [facility]LEXY [facility]UN[facility] [id number] AGE/SX: 32/M ROOM: [facility] RE09[facility]15/18[facility] DR: Keith Swann MD : 84 BED: 1 DIS: 09/16/18 STATUS: DIS IN TLOC: SPEC #: [id number] RECD: 09/15/18 STATUS: DRAGAN REQ #: [id number] DONA: 09/15/18 [facility] DR: Keith Swann MD ENTERED: 09/18/18-1824 SP TYPE: SURG SPEC OTHR DR: No Primary or Family Physician Self Referred Gale Dowling MDORDERED: GM LEVEL 4 CODES: [id number] - ESOPHAGUS, NOS COPIES TO: No Primary or Family Physician Self Referred Keith Swann MD [address] [place] [address] Gale Dowling MD [address] [place] [id number] PROCEDURES: GM LEVEL 4 (Incomplete) TISSUES: 1. [...] CONTINUED ON NEXT PAGE RUN DATE: 09/19/18 [facility] *LIVE* PAGE 2 RUN TIME: 740 Specimen Inquiry RUN USER: INTERFACE SPEC #: [id number] PATIENT: ALEXY NUNN #[id number] (Continued) POST-OP DIAGNOSIS Esophagitis, supertial tear in the esophagus, R/O Flor, esosinophilic es PRE-OP DIAGNOSIS Hematemesis Signed SIGNATURE ON FILE Joec Barbosa DO 09/19/18 0740 END OF REPORT BASIC METABOLIC [id number] 08:40:00 Test Item Value Reference Range Interpretation [...] 9.1 mg/dL 8.0-10.5 N CA) CBC W/AUTO [id number] 08:20:00 Test Item Value Reference Range Interpretation [...] (test code NO = MDIFF) CBC W/AUTO [id number] 22:25:00 Test Item Value Reference Range Interpretation [...] (test code NO = MDIFF) CBC W/AUTO [id number] 12:50:00 Test Item Value Reference Range Interpretation [...] (test code NO = MDIFF) CBC W/AUTO [id number] 07:24:00 Test Item Value Reference Range Interpretation [...] REQUIRED (test NO code = MDIFF) PROTHROMBIN [id number] 00:10:00 Test Item Value Reference Range Interpretation [...] (to prevent recurrent infar ct). CBC W/AUTO [id number] 00:03:00 Test Item Value Reference Range Interpretation [...] REQUIRED (test NO code = MDIFF) PROTHROMBIN [id number] 18:57:00 Test Item Value Reference Range Interpretation Comments PT PATIENT (test code = PTP) 13.1 SECONDS 9.3-12.9 H INTERNATIONAL NORMAL RATIO 1.14 INR Unit 0.8-1.2 N (test code = INR) URINALYSIS [id number] 18:56:00 Test Item Value Reference Range Interpretation [...] code = LEUU) - CT ABD PELVIS [id number] 16:49:00 Name: ALEXY NUNN [facility] : 1985 Age/S: 32 / M [id number] Unit #: [id number] Loc: [place] [address] Phys: Ivette Choudhary MD Acct: [id number] Dis Date: Status: REG ER PHONE #: [phone] Exam Date: 09/14/2018 1638 FAX #: Reason: abd pain unable to give further info 08/05 mr EXAMS: CPT: [id number] CT ABD PELVIS W/CONT 03953 EXAMINATION: - CT ABD PELVIS W/CONT. LOCATION: [...] M.D. PAGE 1 Signed Report (CONTINUED) Name: ALEXY [place] : 1985 Age/S: 32 / M [address] Unit #: [id number] Loc: [place] [address] Phys: Ivette Choudhary MD Acct: [id number] Dis Date: Status: REG ER PHONE #: [phone] Exam Date: 09/14/2018 1635 FAX #: Reason: abd pain unable to give further info 08/05 mr EXAM S: CPT: [id number] CT ABD PELVIS W/CONT 68668 (Continued) CC: Ivette Choudhary MD Technologist:RT Jey(R)(CT) CTDI: DLP: Trnscb Date/Time: 09/14/2018 (1648) t.[email or web address] Orig Print D/T: S: 09/14/2018 (1651) CTDI: DLP: PAGE 2 Signed ReportBASIC METABOLIC [id number] 16:06:00 Test Item Value Reference Range Interpretation [...] CA) 9.7 MG/DL 8.5-10.1 N HEPATIC FUNCTION [id number] 16:06:00 Test Item Value Reference Range Interpretation [...] 89 Unit/L 50-136 N code = ALKP) [id number] 16:06:00 Test Item Value Reference Range Interpretation Comments LIPASE (test code = LIP) 173 Unit/L 114-286 N BASIC METABOLIC [id number] 15:56:00 Test Item Value Reference Range Interpretation [...] CA) 9.7 MG/DL 8.5-10.1 N HEPATIC FUNCTION [id number] 15:56:00 Test Item Value Reference Range Interpretation [...] TOTAL (test code Unit/L 50-136 = ALKP) [id number] 15:56:00 Test Item Value Reference Range Interpretation Comments LIPASE (test code = LIP) 173 Unit/L 114-286 N CBC W/AUTO [id number] 15:47:00 Test Item Value Reference Range Interpretation [...]
[2022-04-05] MEDS ORDERED: LIDOCAINE VISCOUS 2% SOLN 15 ML UDC ONE (16:27)
--- NOTE | 2022-04-05 18:03 | RAD REPORT ---
EXAM DESCRIPTION: RAD - ENTEROSTOMY TUBE CHECK W/CONTR - 04/05/2022 5:47 pm FINDINGS: Two KUB images were obtained prior to and following retrograde injection of a small amount of contrast PA the enterostomy tube. The second image shows injected contrast to be within the proximal stomach. No extraluminal contrast.
--- NOTE | 2022-04-05 18:21 | EDPHYS ---
Physician Documentation [facility] Name: Alexy Mock Age: 36 yrs Sex: Male : 1985 Arrival Date: 04/05/2022 Time: 15:33 Bed 14 Private MD: ED Physician Marcos Limon HPI: 04/05 15:35 This 36 yrs old Male presents to ER via EMS with complaints of Dislodged cp Gastrostomy Tube. 15:35 Patient presents to ED via EMS for replacement of gastrostomy tube that was reportedly cp dislodged earlier today. No other complaints reported by EMS. Historical: - Allergies: 16:14 No Known Allergies; ko1 - Home Meds: 16:14 Tylenol [Active]; ko1 - PMHx: 16:14 abnormal liver function; adhd; Anemia; Bipolar disorder; DYSPHAGIA; ENCEPHALOPATHY; ko1 epilepsy; Hypothyroidism; MR; pressure ulcer sacral region; - PSHx: 16:14 G tube; ko1 - Immunization history:: Adult Immunizations unknown. - Social history:: Smoking status: Patient denies any tobacco usage or history of. ROS: 15:40 Constitutional: Negative for body aches, chills, fever. cp 15:40 Respiratory: Negative for cough, wheezing. cp 15:40 Abdomen/GI: Negative for vomiting, diarrhea, constipation. 15:40 Neuro: Negative for altered mental status. 15:40 All other systems are negative. Exam: 15:45 Constitutional: The patient appears in no acute distress, alert, awake, cp non-diaphoretic, non-toxic, well developed. 15:45 Head/Face: Normocephalic, atraumatic. cp 15:45 Eyes: Periorbital structures: appear normal, Conjunctiva: normal, no exudate, no injection, Sclera: no appreciated abnormality, Lids and lashes: appear normal, bilaterally. 15:45 ENT: External ear(s): are unremarkable, Nose: is normal, Mouth: Lips: dry, Oral mucosa: moist, Posterior pharynx: 15:45 Chest/axilla: Inspection: normal, Palpation: is normal, no crepitus, no tenderness. 15:45 Cardiovascular: Rate: normal, Rhythm: regular. 15:45 Respiratory: the patient does not display signs of respiratory distress, Respirations: normal, no use of accessory muscles, no retractions, labored breathing, is not present, Breath sounds: are clear throughout, no decreased breath sounds, no stridor, no wheezing. 15:45 Abdomen/GI: Inspection: gastric stoma noted left upper abdomen, Bowel sounds: active, all quadrants, Palpation: abdomen is soft and non-tender, in all quadrants. 15:45 Neuro: Orientation: no acute changes, per EMS, Mentation: no acute changes, per EMS. Vital Signs: 15:30 BP 125 / 94; Pulse 75; Resp 12; Temp 98; Pulse Ox 100% ; Weight 44 kg; Height 6 ft. 0 ko1 in. (182.88 cm); Pain 0/10; 16:00 BP 146 / 101; Pulse 68; Resp 12; Pulse Ox 100% ; ko1 17:00 BP 134 / 103; Pulse 84; ko1 18:00 BP 152 / 94; Pulse 75; ko1 19:00 BP 133 / 91; Pulse 69; Resp 18 S; Pulse Ox 99% on R/A; aa9 20:00 BP 150 / 80; Pulse 79; Resp 19 S; Pulse Ox 99% on R/A; aa9 20:50 BP 153 / 80; Pulse 78; Resp 16 S; Pulse Ox 99% on R/A; aa9 15:30 Body Mass Index 13.16 (44.00 kg, 182.88 cm) ko1 Procedures: 18:20 G-tube placement: a 14 Jamaican catheter was placed, by the ED physician, Vidal WARE. cp MDM: 15:37 Patient medically screened. cp 18:20 Data reviewed: vital signs, nurses notes, radiologic studies, plain films. cp 18:20 Test interpretation: by ED physician or midlevel provider: plain radiologic studies. cp Counseling: I had a detailed discussion with the patient and/or guardian regarding: the historical points, exam findings, and any diagnostic results supporting the discharge/admit diagnosis, radiology results, to return to the emergency department if symptoms worsen or persist or if there are any questions or concerns that arise at home. Response to treatment: the patient's symptoms have resolved after treatment, and as a result, I will discharge patient. 04/05 16:43 Order name: PEG Tube Check w/contrast cp 04/05 18:04 Order name: RAD; Complete Time: 18:19 EDMS 04/05 18:19 Interpretation: Report reviewed. cp Administered Medications: 16:50 Drug: Viscous Lidocaine Liquid (4 %) 5 ml Route: Mucous Membrane; ko1 20:19 Drug: Ativan (LORazepam) 1 mg Route: IM; Site: right deltoid; aa9 20:19 Follow up: Response: No adverse reaction; RASS: Restless (+1) aa9 Disposition: 04/06 07:28 PA/NEWSWRITER's history reviewed, patient interviewed, and examined. I agree with assessment jr11 and care plan and confirm the diagnosis (es) above. Attestation: The patient's history, exam findings, diagnostics, and a summary of any interventions or procedures was reviewed in detail with Vidal WARE. Disposition Summary: 04/05/22 18:21 Discharge Ordered Location: Home cp Problem: new cp Symptoms: are resolved cp Condition: Stable cp Diagnosis - Encounter for attention to gastrostomy cp Followup: cp - With: Emergency Department - When: As needed - Reason: Worsening of condition Discharge Instructions: - Discharge Summary Sheet cp - Gastrostomy Tube Replacement cp - Gastrostomy Tube Home Guide, Adult cp Forms: - Medication Reconciliation Form cp - Thank You Letter cp - Antibiotic Education cp - Prescription Opioid Use cp - SBAR form ko1 Signatures: Dispatcher [employer] EDMS Vidal Cooper PA PA cp Marcos Limon MD MD jr11 Peyton Ruano, RN RN aa9 Chioma Her RN RN ko1
--- NOTE | 2022-04-05 18:21 | ER ---
Nurse's Notes [facility] Name: Alexy Mock Age: 36 yrs Sex: Male : 1985 Arrival Date: 04/05/2022 Time: 15:33 Bed 14 Private MD: Diagnosis: Encounter for attention to gastrostomy Presentation: 04/05 14:30 Chief complaint: EMS states: patient pulled out peg tube at [facility]. Coronavirus ko1 screen: Client denies travel out of the [place] in the last 14 days. At this time, the client does not indicate any symptoms associated with coronavirus-19. Ebola Screen: No symptoms or risks identified at this time. 14:30 Method Of Arrival: EMS: [facility] ko1 15:30 Initial Sepsis Screen: Does the patient meet any 2 criteria? No. Patient's initial ko1 sepsis screen is negative. Does the patient have a suspected source of infection? No. Patient's initial sepsis screen is negative. Risk Assessment: Do you want to hurt yourself or someone else? Patient reports no desire to harm self or others. Onset of symptoms was April 05, 2022 at 12:00. Transition of care: patient was received from another setting of care (long-term care facility). 15:30 Acuity: ELROY 2 ko1 Triage Assessment: 16:14 General: Appears in no apparent distress. comfortable, ill, cachectic, Behavior is ko1 calm. Pain: Denies pain. Historical: - Allergies: 16:14 No Known Allergies; ko1 - Home Meds: 16:14 Tylenol [Active]; ko1 - PMHx: 16:14 abnormal liver function; adhd; Anemia; Bipolar disorder; DYSPHAGIA; ENCEPHALOPATHY; ko1 epilepsy; Hypothyroidism; MR; pressure ulcer sacral region; - PSHx: 16:14 G tube; ko1 - Immunization history:: Adult Immunizations unknown. - Social history:: Smoking status: Patient denies any tobacco usage or history of. Screenin:00 Abuse screen: Denies threats or abuse. Denies injuries from another. Nutritional ko1 screening: PEG tube. Tuberculosis screening: No symptoms or risk factors identified. Fall Risk None identified. Assessment: 15:00 General: Appears in no apparent distress. Neuro: nonverbal. Cardiovascular: No deficits ko1 noted. Respiratory: No deficits noted. GI: peg tube removed, dressing intact. : Parent/caregiver report the patient having incontinence. EENT: Oral mucosa is dry. Poor dentition noted. Derm: Decubitus located on sacrum. Musculoskeletal: No deficits noted. 19:38 General: Appears comfortable, slender, discharge pending transport to [address] Pain: Unable to use pain scale. Patient appears quiet, withdrawn. Neuro: nonverbal. Cardiovascular: Patient's skin is warm and dry. Rhythm is regular. Respiratory: Airway is patent Respiratory effort is even, unlabored, Respiratory pattern is regular, symmetrical. 19:50 General: Appears uncomfortable, slender, Behavior is agitated, anxious, restless, pt aa9 attempted to get out of bed, pt told transportation to [facility] is on the way. pt continuing to get out bed multiple times while incoherently yelling. 20:51 General: [facility] ambulance transport took pt by stretcher, report given to EM. pt stable. aa9 General:. Vital Signs: 15:30 BP 125 / 94; Pulse 75; Resp 12; Temp 98; Pulse Ox 100% ; Weight 44 kg; Height 6 ft. 0 ko1 in. (182.88 cm); Pain 0/10; 16:00 BP 146 / 101; Pulse 68; Resp 12; Pulse Ox 100% ; ko1 17:00 BP 134 / 103; Pulse 84; ko1 18:00 BP 152 / 94; Pulse 75; ko1 19:00 BP 133 / 91; Pulse 69; Resp 18 S; Pulse Ox 99% on R/A; aa9 20:00 BP 150 / 80; Pulse 79; Resp 19 S; Pulse Ox 99% on R/A; aa9 20:50 BP 153 / 80; Pulse 78; Resp 16 S; Pulse Ox 99% on R/A; aa9 15:30 Body Mass Index 13.16 (44.00 kg, 182.88 cm) ko1 ED Course: 15:00 Patient has correct armband on for positive identification. Bed in low position. Call ko1 light in reach. Side rails up X2. 15:00 Arm band placed on. aa9 15:33 Patient arrived in ED. bd 15:33 Vidal Cooper PA is PHCP. cp 15:34 Marcos Limon MD is Attending Physician. cp 16:00 Arden, Chioma, RN is Primary Nurse. ko1 16:14 Triage completed. ko1 17:00 peg tube replacement. ko1 18:31 Patient did not have IV access during this emergency room visit. ko1 Administered Medications: 16:50 Drug: Viscous Lidocaine Liquid (4 %) 5 ml Route: Mucous Membrane; ko1 20:19 Drug: Ativan (LORazepam) 1 mg Route: IM; Site: right deltoid; aa9 20:19 Follow up: Response: No adverse reaction; RASS: Restless (+1) aa9 Medication: 15:00 VIS not applicable for this client. ko1 Outcome: 18:21 Discharge ordered by . cp 20:54 Discharged to [facility]. Report called to receiving nurse Transfer form completed. aa9 20:54 Condition: stable 20:54 Discharge instructions given to [facility], Instructed on discharge instructions, follow up and referral plans. Demonstrated understanding of instructions, follow-up care. 20:55 Patient left the ED. aa9 Signatures: Fani Christy Corey, PA PA cp Avalos, Aylin, RN RN aa9 Chioma Her, RN RN ko1 Corrections: (The following items were deleted from the chart) 18:31 18:00 peg tube replacement ko1 ko1
[2022-04-05] MEDS ORDERED: LORazepam 2 MG/ML VIAL ONE (20:04)
[2022-04-05 21:13] VITALS: TEMP 98
[2022-04-05 21:17] VITALS: O2SAT 99
[2022-04-05 21:20] VITALS: BP 153/80
== END 2022-04-05 20:55 | disposition home or self-care (01) ==
LOC: ER 15:16
DX: Z43.1 Encounter for attention to gastrostomy (principal)
CPT/HCPCS: 49465; 96372; 99283